=== PATIENT | female | born 1940 | race Caucasian/White ===

== ENCOUNTER 2016-03-02 12:31 | Emergency (ER) | payer MEDICARE, MEDICAID ==
[~2016-03-02] VITALS: Ht 170.2 cm; Wt 121.1 kg
[~2016-03-02 12:31] MED LIST: ACET500T33 PO; ALBU2.5V5 NEB; ASPI-482 PO; ASPI325T11 PO; ATEN50TA PO; AZIT1PAC PO; CETI10TA22 PO; CHOL500015 PO; CRESTOR40 MG PO; DILT240C2 PO; ESCI10TA10 PO; FLUT12AE IH; FLUT9.9S NS; FURO-69 PO; GLIM2TAB PO; GLIM4TAB PO; HYDR-2762 PO; LEVO150T PO; LEVO150T5 PO; LEVO500T38 PO; LOSA100T6 PO; METO5TAB4 PO; OMEG1CAP2 PO; OXYB5TAB33 PO; OXYC-244 PO; POTA20TA12 PO; PRED-220 PO; PRED50TA PO; SODI30SP NS; TIOT4MIS3 IH; WARF1TAB PO
[2016-03-02] MEDS ORDERED: IPRATRPIUM/ALBUTEROL 0.5/2.5MG 3 ML NEBU. NEB ONE (14:00)
[2016-03-02] MEDS ORDERED: ALBUTEROL SULFATE 2.5 MG/3 ML NEBU. NEB ONE (14:00)
[2016-03-02] MEDS ORDERED: PREDNISONE 20 MG TABLET PO ONE (14:00)
--- NOTE | 2016-03-02 14:27 | RAD ---
Exam: AP portable chest. History: Dyspnea and shortness of breath. Comparison: 12/16/2015. Findings: Cardiac silhouette appears mildly enlarged, similar to previous study. Lungs are without infiltrate. No pneumothorax or pleural effusion is appreciated. Median sternotomy wires are present. Aortic atherosclerosis is noted. Impression: 1. No acute cardiopulmonary process.
[2016-03-02 14:38] VITALS: BP 122/61
[2016-03-02] MEDS ORDERED: LEVO500T38 PO (14:53)
[2016-03-02] MEDS ORDERED: PRED20TA PO (14:53)
--- NOTE | 2016-03-02 15:55 | ED.ADGEN ---
Past Medical History Past Medical History: COPD Past Surgical History: Gastric Bypass Alcohol Use: None Drug Use: None Adult General Chief Complaint Chief Complaint: COUGH HPI HPI Patient is a 75 year old female with a history of COPD presents emergency department complaining of worsening cough for the last 5 days. Patient states she may have had a low-grade fever. Using some antibiotics that she had leftover previously. She is unsure last time that she had steroids. Review of Systems Review of Systems Constitutional: Denies fever or chills. [] Eyes: Denies change in visual acuity. [] HENT: Denies nasal congestion or sore throat. [] Respiratory: Denies cough or shortness of breath. [] Cardiovascular: Denies chest pain or edema. [] GI: Denies abdominal pain, nausea, vomiting, bloody stools or diarrhea. [] : Denies dysuria. [] Musculoskeletal: Denies back pain or joint pain. [] Integument: Denies rash. [] Neurologic: Denies headache, focal weakness or sensory changes. [] Endocrine: Denies polyuria or polydipsia. [] Lymphatic: Denies swollen glands. [] Psychiatric: Denies depression or anxiety. [] Current Medications Current Medications Current Medications Medications (Trade) Dose Ordered Sig/Dean Start Time Stop Time Status Last Admin Dose Admin Albuterol Sulfate (Ventolin Neb Soln) 2.5 mg 1X ONCE 03/02/16 14:00 03/02/16 14:01 DC 03/02/16 14:07 2.5 MG Albuterol/ Ipratropium (Duoneb) 3 ml 1X ONCE 03/02/16 14:00 03/02/16 14:01 DC 03/02/16 14:06 3 ML Prednisone (Prednisone) 60 mg 1X ONCE 03/02/16 14:00 03/02/16 14:01 DC 03/02/16 14:06 60 MG Allergies Allergies Allergies Coded Allergies Type Severity Reaction Last Updated Verified SEAN Inhibitors Allergy Intermediate 12/24/15 Yes Iodinated Contrast Media - Oral and Allergy Intermediate 12/24/15 Yes Penicillins Allergy Intermediate 12/24/15 Yes sulfamethoxazole Allergy Intermediate 12/24/15 Yes trimethoprim Allergy Intermediate 12/24/15 Yes Physical Exam Physical Exam Constitutional: Well developed, well nourished, no acute distress, non-toxic appearance. [] HENT: Normocephalic, atraumatic, bilateral external ears normal, oropharynx moist, no oral exudates, nose normal. [] Eyes: PERRLA, EOMI, conjunctiva normal, no discharge. [] Neck: Normal range of motion, no tenderness, supple, no stridor. [] Cardiovascular:Heart rate regular rhythm, no murmur [] Lungs & Thorax: Bilateral breath sounds diminished with wheezes in all orozco [ ] Abdomen: Bowel sounds normal, soft, no tenderness, no masses, no pulsatile masses. [] Skin: Warm, dry, no erythema, no rash. [] Back: No tenderness, no CVA tenderness. [] Extremities: No tenderness, no cyanosis, no clubbing, ROM intact, no edema. [] Neurologic: Alert and oriented X 3, normal motor function, normal sensory function, no focal deficits noted. [] Psychologic: Affect normal, judgement normal, mood normal. [] Current Patient Data Vital Signs Vital Signs Date Time Temp Pulse Resp B/P Pulse Ox O2 Delivery O2 Flow Rate FiO2 03/02/16 14:38 82 18 122/61 95 Room Air 03/02/16 14:13 2.0 03/02/16 13:44 99.3 99.3 EKG EKG [] Radiology/Procedures Radiology/Procedures Exam: AP portable chest. History: Dyspnea and shortness of breath. Comparison: 12/16/2015. Findings: Cardiac silhouette appears mildly enlarged, similar to previous study. Lungs are without infiltrate. No pneumothorax or pleural effusion is appreciated. Median sternotomy wires are present. Aortic atherosclerosis is noted. Impression: 1. No acute cardiopulmonary process. DICTATED and SIGNED BY: JUAN LAO MD DATE: 03/02/16 9556 CC: YULIANA DODSON MD; MAICOL SOMMERS MD ~[] Course & Med Decision Making Course & Med Decision Making Pertinent Labs and Imaging studies reviewed. (See chart for details) Patient x-rays reassuring. She received a dose of steroids and breathing treatment return emergency department. She reports that she is feeling significantly better when I try to go home. I did write her prescription for Levaquin and prednisone. She will follow-up with her physician within the next 1 week and return to emergency department sooner she develops any new or worsening symptoms. COPD exacerbation [] Dragon Disclaimer Dragon Disclaimer This electronic medical record was generated, in whole or in part, using a voice recognition dictation system. YULIANA DODSON MD Mar 02, 2016 15:54
== END 2016-03-02 15:22 | disposition home or self-care (01) ==
LOC: ER 12:31
DX: J44.1 Chronic obstructive pulmonary disease with (acute) exacerbation (principal); Z88.0 Allergy status to penicillin; Z88.2 Allergy status to sulfonamides; Z91.041 Radiographic dye allergy status; Z88.1 Allergy status to other antibiotic agents; Z88.8 Allergy status to other drugs, medicaments and biological substances
CPT/HCPCS: 71010; 94640; 99284; J7512; J7620

== ENCOUNTER → 2016-05-19 | Outpatient (CLI) | payer MEDICARE, MEDICAID ==
[~2016-05-19] MED LIST changes: +PRED20TA PO
--- NOTE | 2016-05-19 17:54 | CARD ---
APPROVED REPORT EXAM: Two-dimensional and M-mode echocardiogram with Doppler and color Doppler. Other Information Quality : AverageHR: 81bpm Rhythm : Atrial Fibrillation INDICATION Aortic Valve Disease Congestive Heart Failure 2D DIMENSIONS RVDd3.5 (2.9-3.5cm)Left Atrium(2D)4.5 (1.6-4.0cm) IVSd1.0 (0.7-1.1cm)Aortic Root(2D)2.8 (2.0-3.7cm) LVDd5.8 (3.9-5.9cm)LVOT Diameter2.0 (1.8-2.4cm) PWd1.0 (0.7-1.1cm)LVDs4.0 (2.5-4.0cm) FS (%) 30.0 %SV93.2 ml LVEF(%)56.0 (>50%) Aortic Valve AoV Peak Musa.262.8cm/sAoV VTI59.3cm AO Peak GR.27.6mmHgLVOT Peak Musa.111.1cm/s LVOT VTI 24.61cmAO Mean GR.17mmHg DAYANNA (VMAX)1.73pk1XFR (VTI)1.31cm2 Pulmonary Valve PV Peak Pvlrpsyt075.8cm/sPV Peak Grad.5mmHg RVOT VTI18.3cm Tricuspid Valve TR P. Vnskehbt448es/sRAP [id number] TR Peak Gr.95idJrTJGR23nmOj LEFT VENTRICLE The left ventricle is normal size. There is normal left ventricular wall thickness. Left ventricle sy stolic function is normal. The Ejection Fraction is 56%. There is normal LV segmental wall motion. Un able to assess due to abnormal heart rhythm. There is no ventricular septal defect visualized. RIGHT VENTRICLE The right ventricle is normal size. There is normal right ventricular wall thickness. The right ventr icular systolic function is normal. ATRIA The left atrium is mildly dilated. The right atrium is mildly dilated. The interatrial septum is inta ct with no evidence for an atrial septal defect or patent foramen ovale as noted on 2-D or Doppler im aging. AORTIC VALVE The aortic valve is calcified and displays decreased opening. Doppler and Color Flow revealed no sign ificant aortic regurgitation. Calculated aortic valve area is 1.3 cm2 with maximum pressure gradient of 28 mmHg and mean pressure gradient of 18 mmHg. Doppler and color-flow analysis revealed mild aorti c stenosis. MITRAL VALVE The mitral valve is calcified but opens well. Mitral annular calcification on the posterior leaflet i s mild. There is no evidence of mitral valve prolapse. There is no mitral valve stenosis. Doppler and Color Flow revealed trace mitral regurgitation. TRICUSPID VALVE The tricuspid valve is normal in structure. Doppler and Color Flow revealed mild tricuspid regurgitat ion. There is moderate pulmonary hypertension. The PA pressure was estimated at 48 mmHg. PULMONIC VALVE The pulmonary valve is normal in structure. Doppler and Color Flow revealed mild pulmonic valvular re gurgitation. There is no pulmonic valvular stenosis. GREAT VESSELS The aortic root is normal in size. The ascending aorta is normal in size. The IVC is normal in size a nd collapses >50% with inspiration. PERICARDIAL EFFUSION There is no pleural effusion. There is no evidence of significant pericardial effusion. Critical Notification Critical Value: No <Conclusion> Left ventricle systolic function is normal. The Ejection Fraction is 56%. The left atrium is mildly dilated. The right atrium is mildly dilated. Calculated aortic valve area is 1.3 cm2 with maximum pressure gradient of 28 mmHg and mean pressure g radient of 18 mmHg. Doppler and color-flow analysis revealed mild aortic stenosis. The aortic valve is calcified and displays decreased opening. Doppler and Color Flow revealed no significant aortic regurgitation. Doppler and Color Flow revealed trace mitral regurgitation. The mitral valve is calcified but opens well. Mitral annular calcification on the posterior leaflet is mild. Doppler and Color Flow revealed mild tricuspid regurgitation. There is moderate pulmonary hypertension. The PA pressure was estimated at 48 mmHg. Doppler and Color Flow revealed mild pulmonic valvular regurgitation. There is no evidence of significant pericardial effusion.
== END | disposition home or self-care (01) ==
LOC: ECHO 09:36
PROVIDERS: ATTEND Internal Medicine Cardiovascular Disease
DX: I50.32 Chronic diastolic (congestive) heart failure (principal); I35.0 Nonrheumatic aortic (valve) stenosis; I07.1 Rheumatic tricuspid insufficiency; I27.2 Other secondary pulmonary hypertension; I37.1 Nonrheumatic pulmonary valve insufficiency
CPT/HCPCS: 93306

== ENCOUNTER → 2016-05-22 | Day surgery (SDC) | payer MEDICARE, MEDICAID ==
[~2016-05-22] MED LIST changes: +FENTANYL PF 100 MCG/2 ML VIAL. IV PRN; +HYDROMORPHONE 2 MG/ML VIAL. IV PRN; +IV RINGERS,LACTATED 1000ML 1,000 ML IV SCH; +LIDOCAINE 1% 1 ML SYRINGE. ID PRN; +LIDOCAINE 2% PF Vial for OR 5 ML VIAL. ONE; +MORPHINE SULFATE 2 MG/ML DISP.SYRIN. IV PRN; +PROCHLORPERAZINE 10 MG/2 ML VIAL. IV PRN; +PROPOFOL 20 ML IV ONE
[2016-05-22 09:45] VITALS: BP 117/60
== END | disposition home or self-care (01) ==
LOC: ENDOS 07:32
PROVIDERS: ATTEND Internal Medicine Gastroenterology
DX: K22.2 Esophageal obstruction (principal); K29.50 Unspecified chronic gastritis without bleeding; I11.0 Hypertensive heart disease with heart failure; I50.40 Unspecified combined systolic (congestive) and diastolic (congestive) heart failure; E78.00 Pure hypercholesterolemia, unspecified; I48.91 Unspecified atrial fibrillation; J44.9 Chronic obstructive pulmonary disease, unspecified; E66.9 Obesity, unspecified; E11.9 Type 2 diabetes mellitus without complications; E03.9 Hypothyroidism, unspecified; F41.9 Anxiety disorder, unspecified; F32.9 Major depressive disorder, single episode, unspecified; M19.90 Unspecified osteoarthritis, unspecified site; Z90.710 Acquired absence of both cervix and uterus; Z90.49 Acquired absence of other specified parts of digestive tract
CPT/HCPCS: 43235; 43450; J2704

== ENCOUNTER 2016-10-07 08:15 | Emergency (ER) | payer MEDICARE, OTHER ==
[~2016-10-07 08:15] MED LIST changes: -CHOL500015 PO; +CHOL500045 PO; -ESCI10TA10 PO; -FENTANYL PF 100 MCG/2 ML VIAL. IV PRN; -HYDROMORPHONE 2 MG/ML VIAL. IV PRN; -IV RINGERS,LACTATED 1000ML 1,000 ML IV SCH; -LEVO500T38 PO; +LEVO500T59 PO; +LEXAPRO10 MG PO; -LIDOCAINE 1% 1 ML SYRINGE. ID PRN; -LIDOCAINE 2% PF Vial for OR 5 ML VIAL. ONE; -MORPHINE SULFATE 2 MG/ML DISP.SYRIN. IV PRN; -OXYC-244 PO; +OXYC-327 PO; -PROCHLORPERAZINE 10 MG/2 ML VIAL. IV PRN; -PROPOFOL 20 ML IV ONE; -WARF1TAB PO; +WARF1TAB74 PO
--- NOTE | 2016-10-07 08:40 | PHYS DOC ---
Past Medical History Past Medical History: COPD, Diabetes-Type II, High Cholesterol Past Surgical History: Coronary Bypass Surgery, Gastric Bypass Alcohol Use: None Drug Use: None Adult General Chief Complaint Chief Complaint: MECHANICAL FALL HPI HPI Patient is a 76 year old female with history of COPD, diabetes type 2, bypass, who presents with head contusion, right shoulder pain, right bazan pain, right elbow pain, and left hip pain after falling. Patient states she tripped and fell into a laundry basket. Patient denies any loss of consciousness. Denies any neck pain. She states she is currently being treated with antibiotics for an upper respiratory infection. PCP Dr. Ramos Review of Systems Review of Systems Constitutional: Denies fever or chills [] Eyes: Denies change in visual acuity, redness, or eye pain [] HENT: Denies nasal congestion or sore throat [] Respiratory: Denies cough or shortness of breath [] Cardiovascular: No additional information not addressed in HPI [] GI: Denies abdominal pain, nausea, vomiting, bloody stools or diarrhea [] : Denies dysuria or hematuria [] Musculoskeletal: Right shoulder pain, right abzan pain, left hip pain Integument: Denies rash or skin lesions [] Neurologic: Head contusion Endocrine: Denies polyuria or polydipsia [] Current Medications Current Medications Current Medications Medications (Trade) Dose Ordered Sig/Dean Start Time Stop Time Status Last Admin Dose Admin Acetaminophen/ Hydrocodone Bitart (Lortab 5/325) 1 tab 1X ONCE 10/07/16 08:45 10/07/16 08:46 DC 10/07/16 08:41 1 TAB Diphtheria/ Tetanus/Acell Pertussis (Boostrix) 0.5 ml ONCE ONCE 10/07/16 08:45 10/07/16 08:46 DC 10/07/16 08:43 0.5 ML Allergies Allergies Allergies Coded Allergies Type Severity Reaction Last Updated Verified SEAN Inhibitors Allergy Intermediate 05/22/16 Yes Iodinated Contrast- Oral and IV Dye Allergy Intermediate 05/22/16 Yes Penicillins Allergy Intermediate 05/22/16 Yes sulfamethoxazole Allergy Intermediate 05/22/16 Yes trimethoprim Allergy Intermediate 05/22/16 Yes Physical Exam Physical Exam Constitutional: Well developed, well nourished, no acute distress, non-toxic appearance. [] HENT: Normocephalic, atraumatic, bilateral external ears normal, oropharynx moist, no oral exudates, nose normal. [] Eyes: PERRLA, EOMI, conjunctiva normal, no discharge. [] Neck: Normal range of motion, no tenderness, supple, no stridor. [] Cardiovascular:Heart rate regular rhythm, no murmur [] Lungs & Thorax: Bilateral breath sounds clear to auscultation [] Abdomen: Bowel sounds normal, soft, no tenderness, no masses, no pulsatile masses. [] Skin: Warm, dry, no erythema, no rash. [] Back: No tenderness, no CVA tenderness. [] Extremities: Right shoulder with no deformity. Tenderness on palpation of the right lateral shoulder. Limited range of motion to the right shoulder due to pain. Right elbow with bruising. Limited range of motion to the right elbow due to pain. Adequate plantar flexion and dorsiflexion of the right forearm. +2 right radial pulse. Adequate radial medial and ulnar sensation to the right upper extremity. Cap refill less than 2 seconds the right fingers. Left hip with no obvious deformity. Limited range of motion to the left hip due to pain. Tenderness on palpation of the left lateral hip. +2 left radial pulse. Cap refill less than 2 seconds. Right bazan with bruising on the distal end. Full range of motion to the right lower extremity. +2 right radial pulse. Cap refill less than 2 seconds the right lower extremity. Neurologic: Alert and oriented X 3, normal motor function, normal sensory function, no focal deficits noted. Cranial nerves II through XII intact. Mild sized contusion noted on the right parietal lobe and left forehead. Psychologic: Affect normal, judgement normal, mood normal. [] Current Patient Data Vital Signs Vital Signs Date Time Temp Pulse Resp B/P (MAP) Pulse Ox O2 Delivery O2 Flow Rate FiO2 10/07/16 08:41 18 10/07/16 08:26 98.6 106 155/81 (105) 88 Room Air 98.6 EKG EKG [] Radiology/Procedures Radiology/Procedures []PROCEDURE: ELBOW RIGHT 3V; SHOULDER 2+V RIGHT Right shoulder and elbow radiograph 10/07/2016 at 0928 hours Indication: Fall, pain Comparison: None available Technique: 3 views of the right elbow and 3 views of right shoulder are provided. Findings: Right shoulder: There is mild osteoarthrosis of the acromioclavicular joint. Mild osteoarthrosis of the glenohumeral joint. No acute fracture or dislocation. Irregularity along the superolateral aspect of the right humeral head may represent rotator cuff arthropathy. No soft tissue abnormality is identified. Visualized portions of the right lung are clear. Right elbow: There is no acute fracture or dislocation. Radial capitellar articulation is within normal limits. There is no significant elbow joint effusion. Impression: 1. No acute fracture or dislocation involving the acromioclavicular and glenohumeral joints. Mild osteoarthrosis of the acromioclavicular and glenohumeral joints are noted. 2. No acute fracture or dislocation involving the right elbow. DICTATED and SIGNED BY: JOSE GRANADOS MD DATE: 10/07/16940 CC: MAICOL RAMOS MD; JOSE CARRIZALES APRN ~ PROCEDURE: CT HEAD WO CONTRAST CT of the head without contrast, 10/07/2016: History: Fall, pain There is a moderate-sized scalp hematoma centered within the right parietal region. No underlying fracture is identified. The ventricles are within normal limits in size. There is no shift of the midline structures. There is no evidence of acute intracranial hemorrhage or mass effect. A small deep white matter lucency in the centrum semiovale on the right is compatible with an old infarct. There is mild cerebral atrophy. There is calcific plaquing of the distal internal carotid and vertebral arteries. IMPRESSION: 1. 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 2. No acute intracranial abnormality. PQRS Compliance Statement: One or more of the following individualized dose reduction techniques were utilized for this examination: 1. Automated exposure control 2. Adjustment of the mA and/or kV according to patient size 3. Use of iterative reconstruction technique DICTATED and SIGNED BY: LEXY MARK MD DATE: 10/07/16 0913 CC: MAICOL RAMOS MD; JOSE CARRIZALES APRN ~ PROCEDURE: HIP LEFT 2V WITH PELVIS; TIBIA FIBULA RIGHT Left hip radiograph with single view pelvis 10/07/2016 at 0919 hours Right tibia and fibula radiograph Indication: Fall, pain Comparison: Pelvis radiograph 06/03/2005 Technique: AP pelvis and 2 dedicated views of the left hip are provided. 2 views of the right tibia and fibula are provided. Findings: Left hip: There is no acute fracture or dislocation. Joint spaces are maintained. Pelvic ring is intact. Findings are not significantly changed since 06/03/2005. There is mild degenerative changes of the sacroiliac joints and lower lumbar spine. Phleboliths are identified in the pelvis. Right tibia and fibula: A right total knee arthroplasty is partially profiled. There is no periprosthetic fracture involving the tibial stem. No acute fracture or dislocation is identified. Vascular calcification is present. No significant soft tissue abnormality. Impression: 1. No acute fracture or dislocation involving the left hip. 2. No acute fracture or dislocation involving the right tibia and fibula. DICTATED and SIGNED BY: JOSE GRANADOS MD DATE: 10/07/16 0945 CC: MIACOL RAMOS MD; JOSE CARRIZALES APRN ~ PROCEDURE: HIP LEFT 2V WITH PELVIS; TIBIA FIBULA RIGHT Left hip radiograph with single view pelvis 10/07/2016 at 0919 hours Right tibia and fibula radiograph Indication: Fall, pain Comparison: Pelvis radiograph 06/03/2005 Technique: AP pelvis and 2 dedicated views of the left hip are provided. 2 views of the right tibia and fibula are provided. Findings: Left hip: There is no acute fracture or dislocation. Joint spaces are maintained. Pelvic ring is intact. Findings are not significantly changed since 06/03/2005. There is mild degenerative changes of the sacroiliac joints and lower lumbar spine. Phleboliths are identified in the pelvis. Right tibia and fibula: A right total knee arthroplasty is partially profiled. There is no periprosthetic fracture involving the tibial stem. No acute fracture or dislocation is identified. Vascular calcification is present. No significant soft tissue abnormality. Impression: 1. No acute fracture or dislocation involving the left hip. 2. No acute fracture or dislocation involving the right tibia and fibula. DICTATED and SIGNED BY: JOSE GRANADOS MD DATE: 10/07/16 0945 CC: MAICOL RAMOS MD; JOSE CARRIZALES APRN ~ Course & Med Decision Making Course & Med Decision Making Pertinent Labs and Imaging studies reviewed. (See chart for details) Patient is in the ED with head contusion, right shoulder pain, right elbow pain , right bazan pain, and left hip pain status post falling. There was no loss of consciousness. Patient was given tetanus in the ED. CT of the head was negative for any acute findings. Right shoulder right elbow x-rays were negative for any acute findings as interpreted by radiologist. Left hip with pelvic x-rays were negative for any acute findings. Right tib-fib x-rays interpreted by radiologist are negative for any acute findings. Patient got out of bed with the help of a walker. She was able to ambulate. We discharged her with cyclobenzaprine and hydrocodone. She does take hydrocodone at home occasionally for chronic pain. She has a PCP. She stated she'll follow-up in the next 1-7 days. Dragon Disclaimer Dragon Disclaimer This electronic medical record was generated, in whole or in part, using a voice recognition dictation system. Departure Departure Impression: Primary Impression: Fall from standing Additional Impressions: Contusion of left hip Contusion of right shoulder Contusion of right elbow Superficial bruising of lower leg Disposition: 01 HOME, SELF-CARE Condition: STABLE Referrals: MAICOL RAMOS MD (PCP) follow up in one week Patient Instructions: Contusion, [id number], Fall Prevention and Home Safety Additional Instructions: You were seen for head contusion, right shoulder contusion, right elbow contusion, and left hip contusion after falling. Ice and elevate the affected areas. Apply Neosporin to the bruised areas. Take the prescribed medicines as needed for pain. Follow-up with your doctor in the next 1-7 days. Come back to the ED if symptoms worsen. Scripts Cyclobenzaprine Hcl (CYCLOBENZAPRINE HCL) 10 Mg Tablet 1 TAB PO TID, #30 TAB Prov: JOSE CARRIZALES CHILD CARE COUNSELOR 10/07/16 Hydrocodone/Apap 5-325 (NORCO 5-325 TABLET) 1 Each Tablet 1 TAB PO PRN Q6HRS Y for PAIN, #10 TAB 0 Refills Prov: JOSE CARRIZALES CHILD CARE COUNSELOR 10/07/16 Problem Qualifiers Primary Impression: Fall from standing Encounter type: initial encounter Qualified Codes: W19.XXXA - Unspecified fall, initial encounter Additional Impressions: Contusion of left hip Encounter type: initial encounter Qualified Codes: S70.02XA - Contusion of left hip, initial encounter Contusion of right shoulder Encounter type: initial encounter Qualified Codes: S40.011A - Contusion of right shoulder, initial encounter Contusion of right elbow Encounter type: initial encounter Qualified Codes: S50.01XA - Contusion of right elbow, initial encounter Superficial bruising of lower leg Encounter type: initial encounter Laterality: right Qualified Codes: S80.11XA - Contusion of right lower leg, initial encounter JOSE CARRIZALES APRN Oct 07, 2016 08:40
[2016-10-07] MEDS ORDERED: DIPHTH,PERTUSS(ACELL),TET TOX 0.5 ML DISP.SYRIN. VAX IM ONE (08:45)
[2016-10-07] MEDS ORDERED: HYDROcodone/APAP 5/325MG 1 TAB TABLET PO ONE (08:45)
--- NOTE | 2016-10-07 09:19 | RAD ---
CT of the head without contrast, 10/07/2016: History: Fall, pain There is a moderate-sized scalp hematoma centered within the right parietal region. No underlying fracture is identified. The ventricles are within normal limits in size. There is no shift of the midline structures. There is no evidence of acute intracranial hemorrhage or mass effect. A small deep white matter lucency in the centrum semiovale on the right is compatible with an old infarct. There is mild cerebral atrophy. There is calcific plaquing of the distal internal carotid and vertebral arteries. IMPRESSION: 1. 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 2. No acute intracranial abnormality. PQRS Compliance Statement: One or more of the following individualized dose reduction techniques were utilized for this examination: 1. Automated exposure control 2. Adjustment of the mA and/or kV according to patient size 3. Use of iterative reconstruction technique
--- NOTE | 2016-10-07 09:47 | RAD ---
Right shoulder and elbow radiograph 10/07/2016 at 0928 hours Indication: Fall, pain Comparison: None available Technique: 3 views of the right elbow and 3 views of right shoulder are provided. Findings: Right shoulder: There is mild osteoarthrosis of the acromioclavicular joint. Mild osteoarthrosis of the glenohumeral joint. No acute fracture or dislocation. Irregularity along the superolateral aspect of the right humeral head may represent rotator cuff arthropathy. No soft tissue abnormality is identified. Visualized portions of the right lung are clear. Right elbow: There is no acute fracture or dislocation. Radial capitellar articulation is within normal limits. There is no significant elbow joint effusion. Impression: 1. No acute fracture or dislocation involving the acromioclavicular and glenohumeral joints. Mild osteoarthrosis of the acromioclavicular and glenohumeral joints are noted. 2. No acute fracture or dislocation involving the right elbow.
--- NOTE | 2016-10-07 09:52 | RAD ---
Left hip radiograph with single view pelvis 10/07/2016 at 0919 hours Right tibia and fibula radiograph Indication: Fall, pain Comparison: Pelvis radiograph 06/03/2005 Technique: AP pelvis and 2 dedicated views of the left hip are provided. 2 views of the right tibia and fibula are provided. Findings: Left hip: There is no acute fracture or dislocation. Joint spaces are maintained. Pelvic ring is intact. Findings are not significantly changed since 06/03/2005. There is mild degenerative changes of the sacroiliac joints and lower lumbar spine. Phleboliths are identified in the pelvis. Right tibia and fibula: A right total knee arthroplasty is partially profiled. There is no periprosthetic fracture involving the tibial stem. No acute fracture or dislocation is identified. Vascular calcification is present. No significant soft tissue abnormality. Impression: 1. No acute fracture or dislocation involving the left hip. 2. No acute fracture or dislocation involving the right tibia and fibula.
[2016-10-07] MEDS ORDERED: HYDR-971 PO (11:05)
[2016-10-07] MEDS ORDERED: CYCL10TA2 PO (11:05)
[2016-10-07 11:14] VITALS: BP 135/65
== END 2016-10-07 11:41 | disposition home or self-care (01) ==
LOC: ER 08:15
DX: S40.011A Contusion of right shoulder, initial encounter (principal); S50.01XA Contusion of right elbow, initial encounter; S70.02XA Contusion of left hip, initial encounter; S00.03XA Contusion of scalp, initial encounter; S80.11XA Contusion of right lower leg, initial encounter; J44.9 Chronic obstructive pulmonary disease, unspecified; E11.9 Type 2 diabetes mellitus without complications; E78.00 Pure hypercholesterolemia, unspecified; Z95.1 Presence of aortocoronary bypass graft; Z91.041 Radiographic dye allergy status; Z88.1 Allergy status to other antibiotic agents; Z88.8 Allergy status to other drugs, medicaments and biological substances; Z88.2 Allergy status to sulfonamides; Z88.0 Allergy status to penicillin; W01.0XXA Fall on same level from slipping, tripping and stumbling without subsequent striking against object, initial encounter; Y92.89 Other specified places as the place of occurrence of the external cause; Y93.89 Activity, other specified; Y99.8 Other external cause status; Z96.651 Presence of right artificial knee joint
CPT/HCPCS: 70450; 73030; 73080; 73502; 73590; 90471; 90715; 99284-25

== ENCOUNTER 2016-11-16 10:08 | Inpatient (IN) | payer MEDICARE, OTHER ==
[~2016-11-16] VITALS: Ht 175.3 cm; Wt 119.1 kg
[~2016-11-16 10:08] MED LIST changes: +CYCL10TA2 PO; +HYDR-971 PO
[2016-11-16 11:04] LABS: BASO # 0.1 x10^3/uL (0.0-0.2); BASO % 0 % (0-3); EOS % 0 % (0-3); HEMATOCRIT 29.2 % (36.0-47.0); HEMOGLOBIN 9.7 g/dL (12.0-15.5); LYMPH # 0.6 x10^3/uL (1.0-4.8); LYMPH % 5 % (24-48); MEAN CORPUSCULAR HEMOGLOBIN 33 pg (25-35); MEAN CORPUSCULAR HGB CONC 33 g/dL (31-37); MEAN CORPUSCULAR VOLUME 100 fL (79-100); MONO % 9 % (0-9); NEUT % 86 % (31-73); PLATELET COUNT 240 x10^3/uL (140-400); RED BLOOD COUNT 2.93 x10^6/uL (3.50-5.40); RED CELL DISTRIBUTION WIDTH 14.2 % (11.5-14.5); WHITE BLOOD COUNT 12.4 x10^3/uL (4.0-11.0)
--- NOTE | 2016-11-16 11:13 | RAD ---
Examination: Single frontal view chest History: History of shortness of breath Comparison: 03/02/2016 Findings: Low lung volumes and technique accentuates heart size and pulmonary vascularity. Median sternotomy wires are identified. Mild prominent appearing bilateral interstitial lung markings grossly similar to prior exam could be chronic interstitial changes. Impression: Mild prominent interstitial lung markings likely chronic interstitial changes similar to prior exam.
--- NOTE | 2016-11-16 11:22 | PHYS DOC ---
Past Medical History Past Medical History: A-Fib, CHF, COPD, Diabetes-Type II, High Cholesterol, Hypertension Past Surgical History: Cholecystectomy, Coronary Bypass Surgery, Gastric Bypass , Hysterectomy, Knee Replacement, Other Additional Past Surgical Histo: cervical laminectomy, bilat knee replacement Alcohol Use: None Drug Use: None Adult General Chief Complaint Chief Complaint: SHORTNESS OF BREATH [facility] HPI Patient is a 76 year old female who presents with complaint shortness breath for the past 2-3 days. Patient states that she has history of congestive heart failure and COPD. Patient states that she was recently taken off of her water pills 2 weeks ago by her primary physician, Dr. Ramos. The patient states that over the past 2 weeks she has noticed increasing swelling in her lower extremities area the patient states that she is normally on 2 L of oxygen but has been very short of breath despite being on her oxygen. Patient was found to have Review of Systems Review of Systems Constitutional: Denies fever or chills [] Eyes: Denies change in visual acuity, redness, or eye pain [] HENT: Denies nasal congestion or sore throat [] Respiratory: Denies cough or shortness of breath [] Cardiovascular: No additional information not addressed in HPI [] GI: Denies abdominal pain, nausea, vomiting, bloody stools or diarrhea [] : Denies dysuria or hematuria [] Musculoskeletal: Denies back pain or joint pain [] Integument: Denies rash or skin lesions [] Neurologic: Denies headache, focal weakness or sensory changes [] Endocrine: Denies polyuria or polydipsia [] Allergies Allergies Allergies Coded Allergies Type Severity Reaction Last Updated Verified SEAN Inhibitors Allergy Intermediate 11/16/16 Yes Iodinated Contrast- Oral and IV Dye Allergy Intermediate 11/16/16 Yes Penicillins Allergy Intermediate 11/16/16 Yes sulfamethoxazole Allergy Intermediate 11/16/16 Yes trimethoprim Allergy Intermediate 11/16/16 Yes Physical Exam Physical Exam Constitutional: Well developed, well nourished, no acute distress, non-toxic appearance. [] HENT: Normocephalic, atraumatic, bilateral external ears normal, oropharynx moist, no oral exudates, nose normal. [] Eyes: PERRLA, EOMI, conjunctiva normal, no discharge. [] Neck: Normal range of motion, no tenderness, supple, no stridor. [] Cardiovascular:Heart rate regular rhythm, no murmur [] Lungs & Thorax: Bilateral breath sounds clear to auscultation [] Abdomen: Bowel sounds normal, soft, no tenderness, no masses, no pulsatile masses. [] Skin: Warm, dry, no erythema, no rash. [] Back: No tenderness, no CVA tenderness. [] Extremities: No tenderness, no cyanosis, no clubbing, ROM intact, no edema. [] Neurologic: Alert and oriented X 3, normal motor function, normal sensory function, no focal deficits noted. [] Psychologic: Affect normal, judgement normal, mood normal. [] Current Patient Data Vital Signs Vital Signs Date Time Temp Pulse Resp B/P (MAP) Pulse Ox O2 Delivery O2 Flow Rate FiO2 11/16/16 11:02 90 27 118/56 (76) 94 Nasal Cannula 3.0 11/16/16 10:23 100.3 100.3 Lab Values Laboratory Tests Test 11/16/16 10:25 White Blood Count 12.4 x10^3/uL (4.0-11.0) H Red Blood Count 2.93 x10^6/uL (3.50-5.40) L Hemoglobin 9.7 g/dL (12.0-15.5) L Hematocrit 29.2 % (36.0-47.0) L Mean Corpuscular Volume 100 fL (79-100) Mean Corpuscular Hemoglobin 33 pg (25-35) Mean Corpuscular Hemoglobin Concent 33 g/dL (31-37) Red Cell Distribution Width 14.2 % (11.5-14.5) Platelet Count 240 x10^3/uL (140-400) Neutrophils (%) (Auto) 86 % (31-73) H Lymphocytes (%) (Auto) 5 % (24-48) L Monocytes (%) (Auto) 9 % (0-9) Eosinophils (%) (Auto) 0 % (0-3) Basophils (%) (Auto) 0 % (0-3) Neutrophils # (Auto) 10.6 x10^3uL (1.8-7.7) H Lymphocytes # (Auto) 0.6 x10^3/uL (1.0-4.8) L Monocytes # (Auto) 1.1 x10^3/uL (0.0-1.1) Eosinophils # (Auto) 0.0 x10^3/uL (0.0-0.7) Basophils # (Auto) 0.1 x10^3/uL (0.0-0.2) Segmented Neutrophils % 87 % (35-66) H Band Neutrophils % 2 % (0-9) Lymphocytes % 4 % (24-48) L Monocytes % 6 % (0-10) Basophils % 1 % (0-3) Platelet Estimate Adequate (ADEQUATE) Polychromasia Slight Laboratory Tests 11/16/16 10:25 EKG EKG Interpreted by me: Heart rate 98, atrial fibrillation, leftward axis, no acute ST/T-wave abnormalities present[] Radiology/Procedures Radiology/Procedures [facility] [address] [place] [address] IMAGING REPORT Signed PATIENT: JOSE VALENTINE ACCOUNT: [id number] : 1940 LOCATION: ER AGE: 76 SEX: F EXAM STATUS: REG ER ORD. PHYSICIAN: NASIR SHIN MD REASON: shortness of breath PROCEDURE: PORTABLE CHEST 1V Examination: Single frontal view chest History: History of shortness of breath Comparison: 03/02/2016 Findings: Low lung volumes and technique accentuates heart size and pulmonary vascularity. Median sternotomy wires are identified. Mild prominent appearing bilateral interstitial lung markings grossly similar to prior exam could be chronic interstitial changes. Impression: Mild prominent interstitial lung markings likely chronic interstitial changes similar to prior exam. DICTATED and SIGNED BY: SCAR ROONEY MD DATE: 11/16/16 1109 CC: NASIR SHIN MD; JUAN COOK MD ~ [] Course & Med Decision Making Course & Med Decision Making Pertinent Labs and Imaging studies reviewed. (See chart for details) The patient was started on the patient's oxygen levels were titrated to keep O2 sats above 91%. The patient appears to have evidence of acute on chronic congestive heart failure. I spoke with patient's mail processor, Dr. Taveras, who agreed with initiation of Lasix therapy and admission to the hospital. The patient was also found to have a urinary tract infection which is the likely source of the patient's fevers. Patient started on IV Levaquin for treatment. The patient will be admitted for further treatment. I spoke with Dr. Cuello who accepted care patient in hospital. Dragon Disclaimer Dragon Disclaimer This electronic medical record was generated, in whole or in part, using a voice recognition dictation system. Departure Departure Impression: Primary Impression: Acute on chronic respiratory failure Additional Impressions: Congestive heart failure (CHF) COPD (chronic obstructive pulmonary disease) Urinary tract infection Moderate protein malnutrition Disposition: ADMITTED INPATIENT Admitting Physician: Almaz Cuello Condition: GUARDED Referrals: JUAN COOK MD (PCP) Problem Qualifiers Primary Impression: Acute on chronic respiratory failure Respiratory failure complication: hypoxia Qualified Codes: J96.21 - Acute and chronic respiratory failure with hypoxia Additional Impressions: Congestive heart failure (CHF) Congestive heart failure type: unspecified congestive heart failure type Congestive heart failure chronicity: acute on chronic Qualified Codes: I50.9 - Heart failure, unspecified COPD (chronic obstructive pulmonary disease) COPD type: unspecified COPD Qualified Codes: J44.9 - Chronic obstructive pulmonary disease, unspecified Urinary tract infection Urinary tract infection type: site unspecified Hematuria presence: with hematuria Qualified Codes: N39.0 - Urinary tract infection, site not specified ; R31.9 - Hematuria, unspecified NASIR SHIN MD Nov 16, 2016 11:22
--- NOTE | 2016-11-16 11:31 | EKG ---
[facility] [address] [place] [address] Test Date: 2016-11-16 Test Time: 10:20:29 Pat Name: JOSE VALENTINE Department: Room: Gender: F [employer]: : 1940 Requested By: NASIR SHIN Order Number: [id number] Reading MD: Measurements Intervals [place] Rate: 98 P: IA: QRS: -14 QRSD: 106 T: 107 QT: 340 QTc: 436 Interpretive Statements IRREGULAR RHYTHM, NO P-WAVE FOUND LEFTWARD AXIS T ABNORMALITY IN HIGH LATERAL LEADS RI6.01 Unconfirmed report No previous ECG available for comparison
[2016-11-16 11:45] LABS: CALCIUM 8.5 mg/dL (8.5-10.1); CREATININE 0.9 mg/dL (0.6-1.0); GFR 60.6; POTASSIUM 4.5 mmol/L (3.5-5.1)
[2016-11-16 11:49] LABS: % BASOS 1 % (0-3); PLT ESTIMATE ADEQUATE (ADEQUATE); POLYCHROMASIA SLIGHT
[2016-11-16 11:54] LABS: ALBUMIN 2.8 g/dL (3.4-5.0); DIRECT BILIRUBIN 0.2 mg/dL (0.0-0.2); MAGNESIUM 2.2 mg/dL (1.8-2.4); TOTAL BILIRUBIN 0.7 mg/dL (0.2-1.0)
[2016-11-16 11:58] LABS: CKMB MASS < 0.5 ng/mL (0.0-3.6); CREATINE KINASE 30 U/L (26-192)
[2016-11-16 12:09] LABS: BILIRUBIN,URINE NEGATIVE (NEG); GLUCOSE,URINE 500 mg/dL (NEG); NITRITE,URINE POSITIVE (NEG); PROTEIN,URINE 100 mg/dL (NEG-TRACE); UROBILINOGEN,URINE 0.2 mg/dL (0.2 mg/dL)
[2016-11-16 12:17] LABS: BACTERIA,URINE MANY /HPF (0-FEW); SQUAMOUS EPITHELIAL CELL,UR MANY /LPF
[2016-11-16 12:18] LABS: RBC,URINE FOBS /HPF (0-2); WBC,URINE TNTC /HPF (0-4)
[2016-11-16] MEDS ORDERED: IV NORMAL SALINE 1000ML BAG 1,000 ML IV SCH (12:36)
[2016-11-16] MEDS ORDERED: levOFLOXacin PER PHARMACY. MC PRN (12:45)
[2016-11-16] MEDS ORDERED: ONDANSETRON PF 4 MG/2 ML VIAL. IV PRN (12:45)
[2016-11-16] MEDS ORDERED: ACETAMINOPHEN 325 MG TABLET. PO PRN (12:45)
[2016-11-16] MEDS ORDERED: fentaNYL PF VIAL 100 MCG/2 ML VIAL IV PRN (12:45)
[2016-11-16] MEDS ORDERED: FUROSEMIDE 40 MG/4 ML VIAL. IVP ONE ×2 (13:30→22:15)
[2016-11-16 13:45] VITALS: BP 112/53
[2016-11-16 15:00] VITALS: BP 114/54
--- NOTE | 2016-11-16 15:03 | PDOC ---
PULMONARY PROGRESS NOTES Vitals Vital Signs Date Time Temp Pulse Resp B/P (MAP) Pulse Ox O2 Delivery O2 Flow Rate FiO2 11/16/16 13:45 100.6 93 24 112/53 (72) 91 Nasal Cannula 2.0 100.6 Labs Laboratory Tests Test 11/16/16 10:20 11/16/16 10:25 11/16/16 11:25 11/16/16 11:58 Lactic Acid Level 1.4 mmol/L (0.4-2.0) White Blood Count 12.4 x10^3/uL (4.0-11.0) Red Blood Count 2.93 x10^6/uL (3.50-5.40) Hemoglobin 9.7 g/dL (12.0-15.5) Hematocrit 29.2 % (36.0-47.0) Mean Corpuscular Volume 100 fL (79-100) Mean Corpuscular Hemoglobin 33 pg (25-35) Mean Corpuscular Hemoglobin Concent 33 g/dL (31-37) Red Cell Distribution Width 14.2 % (11.5-14.5) Platelet Count 240 x10^3/uL (140-400) Neutrophils (%) (Auto) 86 % (31-73) Lymphocytes (%) (Auto) 5 % (24-48) Monocytes (%) (Auto) 9 % (0-9) Eosinophils (%) (Auto) 0 % (0-3) Basophils (%) (Auto) 0 % (0-3) Neutrophils # (Auto) 10.6 x10^3uL (1.8-7.7) Lymphocytes # (Auto) 0.6 x10^3/uL (1.0-4.8) Monocytes # (Auto) 1.1 x10^3/uL (0.0-1.1) Eosinophils # (Auto) 0.0 x10^3/uL (0.0-0.7) Basophils # (Auto) 0.1 x10^3/uL (0.0-0.2) Segmented Neutrophils % 87 % (35-66) Band Neutrophils % 2 % (0-9) Lymphocytes % 4 % (24-48) Monocytes % 6 % (0-10) Basophils % 1 % (0-3) Platelet Estimate Adequate (ADEQUATE) Polychromasia Slight Sodium Level 140 mmol/L (136-145) Potassium Level 4.5 mmol/L (3.5-5.1) Chloride Level 103 mmol/L (98-107) Carbon Dioxide Level 32 mmol/L (21-32) Anion Gap 5 (6-14) Blood Urea Nitrogen 12 mg/dL (7-20) Creatinine 0.9 mg/dL (0.6-1.0) Estimated GFR (Cockcroft-Gault) 60.6 Glucose Level 192 mg/dL (70-99) Calcium Level 8.5 mg/dL (8.5-10.1) Magnesium Level 2.2 mg/dL (1.8-2.4) Total Bilirubin 0.7 mg/dL (0.2-1.0) Direct Bilirubin 0.2 mg/dL (0.0-0.2) Aspartate Amino Transf (AST/SGOT) 9 U/L (15-37) Alanine Aminotransferase (ALT/SGPT) 16 U/L (14-59) Alkaline Phosphatase 77 U/L (46-116) Creatine Kinase 30 U/L (26-192) Creatine Kinase MB (Mass) < 0.5 ng/mL (0.0-3.6) Creatine Kinase MB Relative Index % (0-4) Troponin I Quantitative < 0.017 ng/mL (0.000-0.055) YB-Ocb-U-Type Natriuretic Peptide 3353 pg/mL (0-449) Total Protein 6.0 g/dL (6.4-8.2) Albumin 2.8 g/dL (3.4-5.0) Lipase 109 U/L (73-393) Urine Collection Type Unknown Urine Color Yellow Urine Clarity Turbid Urine pH 6.0 Urine Specific [place] 1.020 Urine Protein 100 mg/dL (NEG-TRACE) Urine Glucose (UA) 500 mg/dL (NEG) Urine Ketones (Stick) Negative mg/dL (NEG) Urine Blood Moderate (NEG) Urine Nitrite Positive (NEG) Urine Bilirubin Negative (NEG) Urine Urobilinogen Dipstick 0.2 mg/dL (0.2 mg/dL) Urine Leukocyte Esterase Large (NEG) Urine RBC Fobs /HPF (0-2) Urine WBC Tntc /HPF (0-4) Urine Squamous Epithelial Cells Many /LPF Urine Bacteria Many /HPF (0-FEW) Urine Mucus Marked /LPF Test 11/16/16 13:50 Troponin I Quantitative < 0.017 ng/mL (0.000-0.055) Laboratory Tests Test 11/16/16 10:20 11/16/16 10:25 11/16/16 11:25 11/16/16 11:58 Lactic Acid Level 1.4 mmol/L (0.4-2.0) White Blood Count 12.4 x10^3/uL (4.0-11.0) Red Blood Count 2.93 x10^6/uL (3.50-5.40) Hemoglobin 9.7 g/dL (12.0-15.5) Hematocrit 29.2 % (36.0-47.0) Mean Corpuscular Volume 100 fL (79-100) Mean Corpuscular Hemoglobin 33 pg (25-35) Mean Corpuscular Hemoglobin Concent 33 g/dL (31-37) Red Cell Distribution Width 14.2 % (11.5-14.5) Platelet Count 240 x10^3/uL (140-400) Neutrophils (%) (Auto) 86 % (31-73) Lymphocytes (%) (Auto) 5 % (24-48) Monocytes (%) (Auto) 9 % (0-9) Eosinophils (%) (Auto) 0 % (0-3) Basophils (%) (Auto) 0 % (0-3) Neutrophils # (Auto) 10.6 x10^3uL (1.8-7.7) Lymphocytes # (Auto) 0.6 x10^3/uL (1.0-4.8) Monocytes # (Auto) 1.1 x10^3/uL (0.0-1.1) Eosinophils # (Auto) 0.0 x10^3/uL (0.0-0.7) Basophils # (Auto) 0.1 x10^3/uL (0.0-0.2) Segmented Neutrophils % 87 % (35-66) Band Neutrophils % 2 % (0-9) Lymphocytes % 4 % (24-48) Monocytes % 6 % (0-10) Basophils % 1 % (0-3) Platelet Estimate Adequate (ADEQUATE) Polychromasia Slight Sodium Level 140 mmol/L (136-145) Potassium Level 4.5 mmol/L (3.5-5.1) Chloride Level 103 mmol/L (98-107) Carbon Dioxide Level 32 mmol/L (21-32) Anion Gap 5 (6-14) Blood Urea Nitrogen 12 mg/dL (7-20) Creatinine 0.9 mg/dL (0.6-1.0) Estimated GFR (Cockcroft-Gault) 60.6 Glucose Level 192 mg/dL (70-99) Calcium Level 8.5 mg/dL (8.5-10.1) Magnesium Level 2.2 mg/dL (1.8-2.4) Total Bilirubin 0.7 mg/dL (0.2-1.0) Direct Bilirubin 0.2 mg/dL (0.0-0.2) Aspartate Amino Transf (AST/SGOT) 9 U/L (15-37) Alanine Aminotransferase (ALT/SGPT) 16 U/L (14-59) Alkaline Phosphatase 77 U/L (46-116) Creatine Kinase 30 U/L (26-192) Creatine Kinase MB (Mass) < 0.5 ng/mL (0.0-3.6) Creatine Kinase MB Relative Index % (0-4) Troponin I Quantitative < 0.017 ng/mL (0.000-0.055) LY-Sar-V-Type Natriuretic Peptide 3353 pg/mL (0-449) Total Protein 6.0 g/dL (6.4-8.2) Albumin 2.8 g/dL (3.4-5.0) Lipase 109 U/L (73-393) Urine Collection Type Unknown Urine Color Yellow Urine Clarity Turbid Urine pH 6.0 Urine Specific [place] 1.020 Urine Protein 100 mg/dL (NEG-TRACE) Urine Glucose (UA) 500 mg/dL (NEG) Urine Ketones (Stick) Negative mg/dL (NEG) Urine Blood Moderate (NEG) Urine Nitrite Positive (NEG) Urine Bilirubin Negative (NEG) Urine Urobilinogen Dipstick 0.2 mg/dL (0.2 mg/dL) Urine Leukocyte Esterase Large (NEG) Urine RBC Fobs /HPF (0-2) Urine WBC Tntc /HPF (0-4) Urine Squamous Epithelial Cells Many /LPF Urine Bacteria Many /HPF (0-FEW) Urine Mucus Marked /LPF Test 11/16/16 13:50 Troponin I Quantitative < 0.017 ng/mL (0.000-0.055) Medications Active Scripts Medications Dose Route/Sig Max Daily Dose Days Date Category Dose Instructions Cyclobenzaprine Hcl 10 Mg Tablet 1 Tab PO TID 10/07/16 Rx [place] 5-325 Tablet (Acetaminophen/Hydrocodone Bitart) 1 Each Tablet 1 Tab PO PRN Q6HRS PRN 10/07/16 Rx Aspirin Ec (Aspirin) 325 Mg Tablet.dr 1 Tab PO BID 12/26/15 Reported Last dose: 12-27-15 at 08 am. Next dose: 12-27-15 at 9 pm tonight. Hydrocodone-Apap 7.5-325 (Hydrocodone Bit/Acetaminophen) 1 Each Tablet 1-2 Tab PO PRN Q6HRS PRN 12/26/15 Reported Took at 2:30 today may take anytime as needed every 6 hours Synthroid (Levothyroxine Sodium) 150 Mcg Tablet 1 Tab PO DAILY 12/16/15 Reported Last dose taken: 12-27-15 at 07am Next dose: 12-28-15 at 07am Amaryl (Glimepiride) 4 Mg Tablet 1 Tab PO BID 12/16/15 Reported Last dose taken 12/27/15 at 08:30 am. Next dose: 12/27/15 at 6pm Saline Nasal [place] (Sodium Chloride) 30 Ml [place] 30 Ml NS PRN PRN 07/18/15 Reported May resume at home as needed. Lasix (Furosemide) 20 Mg Tablet 1 Tab PO DAILY 07/18/15 Reported None taken today may resume in am. Zyrtec (Cetirizine Hcl) 10 Mg Tablet 1 Tab PO PRN PRN 07/18/15 Reported Not taken in hosp. May resume at home as directed as needed Albuterol Sulfate Neb Soln (Albuterol Sulfate) 2.5 Mg/3 Ml Vial.neb 1 Vial NEB BID 07/18/15 Reported LAST DOSE GIVEN: DATE:12-27-15 TIME:8:00 a.m. NEXT DOSE DUE: DATE:12-27-15 TIME:9:00 p.m. Flovent 110MCG Hfa (Fluticasone Propionate) 12 Gm Aer.w.adap 220 Mcg IH BID 07/18/15 Reported LAST DOSE GIVEN: DATE: 12-27-15 TIME: 9:00 a.m. NEXT DOSE DUE: DATE: 12-27-15 TIME: 9:00 p.m. Tylenol Extra Strength (Acetaminophen) 500 Mg Tablet 1,500 Mg PO BID 04/17/15 Reported Last dose taken at 0800 am. Take home as directed but do not take with pain medications and do not exceed 4,000mg in 24 hour period. Potassium Chloride 20 Meq Tab.er.prt 1 Tab PO DAILY 04/17/15 Reported LAST DOSE GIVEN: DATE: 12-27-15 TIME: 8:30 a.m. NEXT DOSE DUE: DATE: 12-28-15 TIME: 8:30 a.m. Metolazone 5 Mg Tablet 5 Mg PO DAILY 04/16/15 Reported LAST DOSE GIVEN: DATE: 12-27-15 TIME: 8:30 a.m. NEXT DOSE DUE: DATE: 12-28-15 TIME: 8:30 a.m. Lexapro (Escitalopram Oxalate) 10 Mg Tablet 10 Mg PO DAILY 05/01/13 Reported LAST DOSE GIVEN: DATE: 12-27-15 TIME: 8:30 a.m. NEXT DOSE DUE: DATE: 12-28-15 TIME: 8:30 a.m. Cardizem Cd (Diltiazem Hcl) 240 Mg Cap.er.24h 240 Mg PO HS 05/01/13 Reported LAST DOSE GIVEN: DATE: 12-26-15 TIME: 9:00 p.m. NEXT DOSE DUE: DATE: 12-27-15 TIME: 9:00 p.m. Losartan Potassium 100 Mg Tablet 100 Mg PO DAILY 05/01/13 Reported None taken today resume in am. Crestor (Rosuvastatin Calcium) 40 Mg Tablet 40 Mg PO QHS 05/01/13 Reported LAST DOSE GIVEN: DATE: 12-26-15 TIME: 9:00 p.m. NEXT DOSE DUE: DATE: 12-27-15 TIME: 9:00 p.m. Impression . FULL CONSULT DICTATED SEE ORDERS THANKS MOSTLY ACUTE CHF UTI HARLEEN MENDOZA MD Nov 16, 2016 15:03
[2016-11-16] MEDS ORDERED: CETIRIZINE HCL 10 MG TABLET. PO PRN (15:15)
[2016-11-16] MEDS ORDERED: SODIUM CHLORIDE 0.65% NASAL SPRAY 45ML BOTTLE. NS PRN (15:15)
[2016-11-16] MEDS ORDERED: ASPI-630 PO (15:25)
--- NOTE | 2016-11-16 15:29 | PDOC1 ---
History and Physical Date of Admission Date of Admission DATE: 11/16/16 TIME: 15:21 Identification/Chief Complaint Chief Complaint short of breath Problems: Source Source: Chart review, Patient History of Present Illness History of Present Illness Ms. Will, is a 76 year old admit from ER with acute shortness breath for the past 2 days. New LE edema, worsening left leg more than right, which she says is normal for her. She reports hx of congestive heart failure and COPD, but was taken off diruetics 2 weeks ago by her PCP. CV care with Dr. Baez more than one week of acutely worsening leg swelling, weight gain noted dyspnea was much worse today, no pain, she feels better after treatments started in the ER, lasix, abx, nebs Past Medical History Cardiovascular: CAD Pulmonary: COPD Psych: Anxiety Musculoskeletal: Other Endocrine: Diabetes Past Surgical History Past Surgical History: Appendectomy, Cholecystectomy, CABG, Tonsillectomy, Hysterectomy Family History Family History: No Significant Social History Smoke: No ALCOHOL: none Drugs: None Current Problem List Problem List Problems Medical Problems: (1) Congestive heart failure (CHF) Status: Acute (2) COPD (chronic obstructive pulmonary disease) Status: Acute (3) Moderate protein malnutrition Status: Acute (4) Urinary tract infection Status: Acute Problems: Current Medications Current Medications Current Medications Ondansetron HCl (Zofran) 4 mg PRN Q8HRS PRN IV NAUSEA/VOMITING; Start 11/16/16 at 12:45; Stop 11/17/16 at 12:44 Fentanyl Citrate (Fentanyl 2ml Vial) 50 mcg PRN Q2HR PRN IV PAIN; Start at 12:45; Stop 11/17/16 at 12:44 Sodium Chloride 1,000 ml @ 100 mls/hr Q10H IV ; Start 11/16/16 at 12:36; Stop 11/17/16 at 12:35 Acetaminophen (Tylenol) 650 mg PRN Q4HRS PRN PO FEVER Last administered on 11/16t 14:14; Start 11/16/16 at 12:45; Stop 11/17/16 at 12:44 Albuterol/ Ipratropium (Duoneb) 3 ml RTQID NEB ; Start 11/16/16 at 13:00; Stop 11/17/16 at 12:59 Levofloxacin/ Dextrose (Levaquin Per Pharmacy) 1 each PRN DAILY PRN MC SEE COMMENTS; Start 11/16/16 at 12:45 Levofloxacin/ Dextrose 100 ml @ 100 mls/hr Q24H IV Last administered on 14:14; Start 11/16/16 at 13:00 Furosemide (Lasix) 40 mg 1X ONCE IVP Last administered on 11/16/16t 14:14; Start 11/16/16 at 13:30; Stop 11/16/16 at 13:31; Status DC Aspirin (Ecotrin) 325 mg BID PO ; Start 11/16/16 at 21:00 Cetirizine HCl (ZyrTEC) 10 mg PRN DAILY PRN PO ALLERGIES; Start 11/16/16 at 15: 15 Cyclobenzaprine HCl (Flexeril) 10 mg TID PO ; Start 11/16/16 at 16:00 Diltiazem HCl (Cardizem 24hr Cd) 240 mg HS PO ; Start 11/16/16 at 21:00 Furosemide (Lasix) 20 mg DAILY PO ; Start 11/16/16 at 16:00 Acetaminophen/ Hydrocodone Bitart (Lortab 7.5/325) 1 tab PRN Q6HRS PRN PO PAIN ; Start 11/16/16 at 15:15 Levothyroxine Sodium (Synthroid) 150 mcg DAILY07 PO ; Start 11/16/16 at 16:00 Potassium Chloride (Klor-Con) 20 meq DAILY PO ; Start 11/17/16 at 09:00 Sodium Chloride (Saline Mist Nasal) 1 nara PRN Q6HRS PRN NS nasal dryness; Start 11/16/16 at 15:15 Citalopram Hydrobromide (CeleXA) 20 mg DAILY PO ; Start 11/17/16 at 09:00 Non-Formulary Medication 220 mcg BID IH ; Start 11/16/16 at 21:00; Status UNV Glimepiride (Amaryl) 4 mg BIDWMEALS PO ; Start 11/16/16 at 17:00 Losartan Potassium (Cozaar) 100 mg DAILY PO ; Start 11/16/16 at 16:00 Atorvastatin Calcium (Lipitor) 80 mg QHS PO ; Start 11/16/16 at 21:00 Budesonide (Pulmicort) 0.5 mg RTBID NEB ; Start 11/16/16 at 20:00 Active Scripts Active Cyclobenzaprine Hcl 10 Mg Tablet 1 Tab PO TID [place] 5-325 Tablet (Acetaminophen/Hydrocodone Bitart) 1 Each Tablet 1 Tab PO PRN Q6HRS PRN Reported Aspirin Ec (Aspirin) 325 Mg Tablet. 1 Tab PO BID Last dose: 12-27-15 at 08 am. Next dose: 12-27-15 at 9 pm tonight. Hydrocodone-Apap 7.5-325 (Hydrocodone Bit/Acetaminophen) 1 Each Tablet 1-2 Tab PO PRN Q6HRS PRN Took at 2:30 today may take anytime as needed every 6 hours Synthroid (Levothyroxine Sodium) 150 Mcg Tablet 1 Tab PO DAILY Last dose taken: 12-27-15 at 07am Next dose: 12-28-15 at 07am Amaryl (Glimepiride) 4 Mg Tablet 1 Tab PO BID Last dose taken 12/27/15 at 08:30 am. Next dose: 12/27/15 at 6pm Saline Nasal [place] (Sodium Chloride) 30 Ml [place] 30 Ml NS PRN PRN May resume at home as needed. Lasix (Furosemide) 20 Mg Tablet 1 Tab PO DAILY None taken today may resume in am. Zyrtec (Cetirizine Hcl) 10 Mg Tablet 1 Tab PO PRN PRN Not taken in hosp. May resume at home as directed as needed Albuterol Sulfate Neb Soln (Albuterol Sulfate) 2.5 Mg/3 Ml Vial.neb 1 Vial NEB BID LAST DOSE GIVEN: DATE:12-27-15 TIME:8:00 a.m. NEXT DOSE DUE: DATE:12-27-15 TIME:9:00 p.m. Flovent 110MCG Hfa (Fluticasone Propionate) 12 Gm Aer.w.adap 220 Mcg IH BID LAST DOSE GIVEN: DATE: 12-27-15 TIME: 9:00 a.m. NEXT DOSE DUE: DATE: 12-27-15 TIME: 9:00 p.m. Tylenol Extra Strength (Acetaminophen) 500 Mg Tablet 1,500 Mg PO BID Last dose taken at 0800 am. Take home as directed but do not take with pain medications and do not exceed 4,000mg in 24 hour period. Potassium Chloride 20 Meq Tab.er.prt 1 Tab PO DAILY LAST DOSE GIVEN: DATE: 12-27-15 TIME: 8:30 a.m. NEXT DOSE DUE: DATE: 12-28-15 TIME: 8:30 a.m. Metolazone 5 Mg Tablet 5 Mg PO DAILY LAST DOSE GIVEN: DATE: 12-27-15 TIME: 8:30 a.m. NEXT DOSE DUE: DATE: 12-28-15 TIME: 8:30 a.m. Lexapro (Escitalopram Oxalate) 10 Mg Tablet 10 Mg PO DAILY LAST DOSE GIVEN: DATE: 12-27-15 TIME: 8:30 a.m. NEXT DOSE DUE: DATE: 12-28-15 TIME: 8:30 a.m. Cardizem Cd (Diltiazem Hcl) 240 Mg Cap.er.24h 240 Mg PO HS LAST DOSE GIVEN: DATE: 12-26-15 TIME: 9:00 p.m. NEXT DOSE DUE: DATE: 12-27-15 TIME: 9:00 p.m. Losartan Potassium 100 Mg Tablet 100 Mg PO DAILY None taken today resume in am. Crestor (Rosuvastatin Calcium) 40 Mg Tablet 40 Mg PO QHS LAST DOSE GIVEN: DATE: 12-26-15 TIME: 9:00 p.m. NEXT DOSE DUE: DATE: 12-27-15 TIME: 9:00 p.m. Allergies Allergies: Coded Allergies: SEAN Inhibitors (Verified Allergy, Intermediate, 11/16/16) Iodinated Contrast- Oral and IV Dye (Verified Allergy, Intermediate, ) Penicillins (Verified Allergy, Intermediate, 11/16/16) sulfamethoxazole (Verified Allergy, Intermediate, 11/16/16) trimethoprim (Verified Allergy, Intermediate, 11/16/16) ROS General: YES: Fatigue, No: Chills, Night Sweats, Malaise, Appetite, Other PSYCHOLOGICAL ROS: No: Anxiety, Behavioral Disorder, Concentration difficultie , Decreased libido, Depression, Disorientation, Hallucinations, Hostility, Irritablity, Memory difficulties, Mood Swings, Obsessive thoughts, Other Eyes: No Blurry vision, No Decreased vision, No Double vision, No Dry eyes, No Excessive tearing, No Eye Pain, No Itchy Eyes, No Loss of vision, No Photophobia , No Scotomata, No Uses contacts, No Uses glasses, No Other HEENT: YES: Heacaches, No: Visual Changes, Hearing change, Nasal congestion, Nasal discharge, Oral lesions, Sinus pain, Sore Throat, Epistaxis, Sneezing, Snoring, Tinnitus, Vertigo, Vocal changes, Other Respiratory: No: Cough, Hemoptysis, Orthopnea, Pleuritic Pain, Shortness of breath, SOB with excertion, Sputum Changes, Stridor, Tachypnea, Wheezing, Other Cardiovascular: yes Edema, No Chest Pain, No Palpitations, No Orthopnea, No Paroxysmal Noc. Dyspnea, No Lt Headedness, No Other Gastrointestinal: Yes Nausea, No Vomiting, No Abdominal Pain, No Diarrhea, No Constipation, No Melena, No Hematochezia, No Other Genitourinary: No Dysuria, No Frequency, No Incontinence, No Hematuria, No Retention, No Discharge, No Urgency, No Pain, No Flank Pain, No Other, No , No , No , No , No , No , No Musculoskeletal: No Gait Disturbance, No Joint Pain, No Joint Stiffness, No Joint Swelling, No Muscle Pain, No Muscular Weakness, No Pain In:, No Swelling In:, No Other Neurological: No Behavorial Changes, No Bowel/Bladder ControlChng, No Confusion , No Dizziness, No Gait Disturbance, No Headaches, No Impaired Coord/balance, No Memory Loss, No Numbness/Tingling, No Seizures, No Speech Problems, No Tremors, No Visual Changes, No Weakness, No Other Skin: No Dry Skin, No Eczema, No Hair Changes, No Lumps, No Mole Changes, No Mottling, No Nail Changes, No Pruritus, No Rash, No Skin Lesion Changes, No Other, No Acne Physical Exam General: Alert, Oriented X3, Cooperative, mild distress HEENT: Atraumatic, PERRLA, EOMI, Mucous membr. moist/pink Abdomen: Normal bowel sounds, Soft Rectal Exam: not examined Extremities: No cyanosis, Other (2+ LE edema) Skin: No rashes, No significant lesion Neuro: Normal speech, Normal tone, Sensation intact Psych/Mental Status: Mental status NL, Mood NL Vitals Vitals Vital Signs Date Time Temp Pulse Resp B/P (MAP) Pulse Ox O2 Delivery O2 Flow Rate FiO2 11/16/16 15:00 100.5 94 22 114/54 (74) 92 Nasal Cannula 2.0 100.5 Labs Labs Laboratory Tests Test 11/16/16 10:20 9/25/17 10:25 11/16/16 11:25 11/16/16 11:58 Lactic Acid Level 1.4 mmol/L (0.4-2.0) White Blood Count 12.4 x10^3/uL (4.0-11.0) Red Blood Count 2.93 x10^6/uL (3.50-5.40) Hemoglobin 9.7 g/dL (12.0-15.5) Hematocrit 29.2 % (36.0-47.0) Mean Corpuscular Volume 100 fL (79-100) Mean Corpuscular Hemoglobin 33 pg (25-35) Mean Corpuscular Hemoglobin Concent 33 g/dL (31-37) Red Cell Distribution Width 14.2 % (11.5-14.5) Platelet Count 240 x10^3/uL (140-400) Neutrophils (%) (Auto) 86 % (31-73) Lymphocytes (%) (Auto) 5 % (24-48) Monocytes (%) (Auto) 9 % (0-9) Eosinophils (%) (Auto) 0 % (0-3) Basophils (%) (Auto) 0 % (0-3) Neutrophils # (Auto) 10.6 x10^3uL (1.8-7.7) Lymphocytes # (Auto) 0.6 x10^3/uL (1.0-4.8) Monocytes # (Auto) 1.1 x10^3/uL (0.0-1.1) Eosinophils # (Auto) 0.0 x10^3/uL (0.0-0.7) Basophils # (Auto) 0.1 x10^3/uL (0.0-0.2) Segmented Neutrophils % 87 % (35-66) Band Neutrophils % 2 % (0-9) Lymphocytes % 4 % (24-48) Monocytes % 6 % (0-10) Basophils % 1 % (0-3) Platelet Estimate Adequate (ADEQUATE) Polychromasia Slight Sodium Level 140 mmol/L (136-145) Potassium Level 4.5 mmol/L (3.5-5.1) Chloride Level 103 mmol/L (98-107) Carbon Dioxide Level 32 mmol/L (21-32) Anion Gap 5 (6-14) Blood Urea Nitrogen 12 mg/dL (7-20) Creatinine 0.9 mg/dL (0.6-1.0) Estimated GFR (Cockcroft-Gault) 60.6 Glucose Level 192 mg/dL (70-99) Calcium Level 8.5 mg/dL (8.5-10.1) Magnesium Level 2.2 mg/dL (1.8-2.4) Total Bilirubin 0.7 mg/dL (0.2-1.0) Direct Bilirubin 0.2 mg/dL (0.0-0.2) Aspartate Amino Transf (AST/SGOT) 9 U/L (15-37) Alanine Aminotransferase (ALT/SGPT) 16 U/L (14-59) Alkaline Phosphatase 77 U/L (46-116) Creatine Kinase 30 U/L (26-192) Creatine Kinase MB (Mass) < 0.5 ng/mL (0.0-3.6) Creatine Kinase MB Relative Index % (0-4) Troponin I Quantitative < 0.017 ng/mL (0.000-0.055) IM-Tkl-G-Type Natriuretic Peptide 3353 pg/mL (0-449) Total Protein 6.0 g/dL (6.4-8.2) Albumin 2.8 g/dL (3.4-5.0) Lipase 109 U/L (73-393) Urine Collection Type Unknown Urine Color Yellow Urine Clarity Turbid Urine pH 6.0 Urine Specific [place] 1.020 Urine Protein 100 mg/dL (NEG-TRACE) Urine Glucose (UA) 500 mg/dL (NEG) Urine Ketones (Stick) Negative mg/dL (NEG) Urine Blood Moderate (NEG) Urine Nitrite Positive (NEG) Urine Bilirubin Negative (NEG) Urine Urobilinogen Dipstick 0.2 mg/dL (0.2 mg/dL) Urine Leukocyte Esterase Large (NEG) Urine RBC Fobs /HPF (0-2) Urine WBC Tntc /HPF (0-4) Urine Squamous Epithelial Cells Many /LPF Urine Bacteria Many /HPF (0-FEW) Urine Mucus Marked /LPF Test 11/16/16 13:50 Troponin I Quantitative < 0.017 ng/mL (0.000-0.055) Laboratory Tests Test 11/16/16 10:20 11/16/16 10:25 11/16/16 11:25 11/16/16 11:58 Lactic Acid Level 1.4 mmol/L (0.4-2.0) White Blood Count 12.4 x10^3/uL (4.0-11.0) Red Blood Count 2.93 x10^6/uL (3.50-5.40) Hemoglobin 9.7 g/dL (12.0-15.5) Hematocrit 29.2 % (36.0-47.0) Mean Corpuscular Volume 100 fL (79-100) Mean Corpuscular Hemoglobin 33 pg (25-35) Mean Corpuscular Hemoglobin Concent 33 g/dL (31-37) Red Cell Distribution Width 14.2 % (11.5-14.5) Platelet Count 240 x10^3/uL (140-400) Neutrophils (%) (Auto) 86 % (31-73) Lymphocytes (%) (Auto) 5 % (24-48) Monocytes (%) (Auto) 9 % (0-9) Eosinophils (%) (Auto) 0 % (0-3) Basophils (%) (Auto) 0 % (0-3) Neutrophils # (Auto) 10.6 x10^3uL (1.8-7.7) Lymphocytes # (Auto) 0.6 x10^3/uL (1.0-4.8) Monocytes # (Auto) 1.1 x10^3/uL (0.0-1.1) Eosinophils # (Auto) 0.0 x10^3/uL (0.0-0.7) Basophils # (Auto) 0.1 x10^3/uL (0.0-0.2) Segmented Neutrophils % 87 % (35-66) Band Neutrophils % 2 % (0-9) Lymphocytes % 4 % (24-48) Monocytes % 6 % (0-10) Basophils % 1 % (0-3) Platelet Estimate Adequate (ADEQUATE) Polychromasia Slight Sodium Level 140 mmol/L (136-145) Potassium Level 4.5 mmol/L (3.5-5.1) Chloride Level 103 mmol/L (98-107) Carbon Dioxide Level 32 mmol/L (21-32) Anion Gap 5 (6-14) Blood Urea Nitrogen 12 mg/dL (7-20) Creatinine 0.9 mg/dL (0.6-1.0) Estimated GFR (Cockcroft-Gault) 60.6 Glucose Level 192 mg/dL (70-99) Calcium Level 8.5 mg/dL (8.5-10.1) Magnesium Level 2.2 mg/dL (1.8-2.4) Total Bilirubin 0.7 mg/dL (0.2-1.0) Direct Bilirubin 0.2 mg/dL (0.0-0.2) Aspartate Amino Transf (AST/SGOT) 9 U/L (15-37) Alanine Aminotransferase (ALT/SGPT) 16 U/L (14-59) Alkaline Phosphatase 77 U/L (46-116) Creatine Kinase 30 U/L (26-192) Creatine Kinase MB (Mass) < 0.5 ng/mL (0.0-3.6) Creatine Kinase MB Relative Index % (0-4) Troponin I Quantitative < 0.017 ng/mL (0.000-0.055) LO-Wvg-Z-Type Natriuretic Peptide 3353 pg/mL (0-449) Total Protein 6.0 g/dL (6.4-8.2) Albumin 2.8 g/dL (3.4-5.0) Lipase 109 U/L (73-393) Urine Collection Type Unknown Urine Color Yellow Urine Clarity Turbid Urine pH 6.0 Urine Specific [place] 1.020 Urine Protein 100 mg/dL (NEG-TRACE) Urine Glucose (UA) 500 mg/dL (NEG) Urine Ketones (Stick) Negative mg/dL (NEG) Urine Blood Moderate (NEG) Urine Nitrite Positive (NEG) Urine Bilirubin Negative (NEG) Urine Urobilinogen Dipstick 0.2 mg/dL (0.2 mg/dL) Urine Leukocyte Esterase Large (NEG) Urine RBC Fobs /HPF (0-2) Urine WBC Tntc /HPF (0-4) Urine Squamous Epithelial Cells Many /LPF Urine Bacteria Many /HPF (0-FEW) Urine Mucus Marked /LPF Test 11/16/16 13:50 Troponin I Quantitative < 0.017 ng/mL (0.000-0.055) VTE Prophylaxis Ordered VTE Prophylaxis Devices: No VTE Pharmacological Prophylaxi: Yes Assessment/Plan Assessment/Plan UTI, w. fever, tachycardia, tachypnea and leukocytosis, + sepsis acute diastolic CHF, limit fluid, pt has new edema, will need diuresis, BP excellent 135/82 hypoxia, support as needed moderate malnutrition, albumin 2.8 in obesity, BMI 40 anemia, macrocytic, check B12 and folate COPD, stable PERFECTO WAITE MD Nov 16, 2016 15:29
[2016-11-16] MEDS: IPRATRPIUM/ALBUTEROL 0.5/2.5MG 3 ML NEBU. NEB SCH ×2 (15:40→19:21)
[2016-11-16 15:51] LABS: FOLATE 16.29 ng/ml (3.2-20.0)
[2016-11-16] MEDS: FUROSEMIDE 20 MG TABLET PO SCH (16:00)
[2016-11-16] MEDS: LOSARTAN POTASSIUM 50 MG TABLET. PO SCH (16:00)
[2016-11-16] MEDS ORDERED: CYCLOBENZAPRINE 10 MG TABLET. PO SCH (16:00)
[2016-11-16] MEDS: LEVOTHYROXINE 150 MCG TABLET PO SCH (16:00)
[2016-11-16] MEDS: GLIMEPIRIDE 2 MG TABLET. PO SCH (17:14)
--- NOTE | 2016-11-16 18:40 | PDOC2 ---
CONSULT Date of Consult Date of Consult DATE: 11/16/16 TIME: 18:32 Reason for Consult Reason for Consult: Dyspnea and edema Referring Physician Referring Physician: Dr. Cuello Identification/Chief Complaint Chief Complaint Dyspnea and edema Problems: History of Present Illness Reason for Visit: This lady's a 76-year-old that has a known history of CHF secondary to systolic and diastolic dysfunction. She also has COPD and hypertension. The patient has been having problems with hypotension and her diuretics have been decreased. She was on Lasix and Zaroxolyn both of which have been stopped. Over the last few days she started getting more edema and then gradually getting worsening dyspnea. She denies any palpitations, she denies any chest pains. Today she was having problems breathing and came into the emergency room where she was seen and evaluated and he was decided to admit her for further care. At the time that I saw her she states that she feels a little better since she cut the IV Lasix in the ER. Past Medical History Cardiovascular: AFIB, CAD, CHF, HTN Pulmonary: COPD Psych: Anxiety Musculoskeletal: Other Endocrine: Diabetes Past Surgical History Past Surgical History: Appendectomy, Cholecystectomy, CABG, Tonsillectomy, Hysterectomy Family History Family History: No Significant Social History No ALCOHOL: none Drugs: None Lives: Alone Current Problem List Problem List Problems Medical Problems: (1) Congestive heart failure (CHF) Status: Acute (2) COPD (chronic obstructive pulmonary disease) Status: Acute (3) Moderate protein malnutrition Status: Acute (4) Urinary tract infection Status: Acute Current Medications Current Medications Current Medications Ondansetron HCl (Zofran) 4 mg PRN Q8HRS PRN IV NAUSEA/VOMITING; Start 11/16/16 at 12:45; Stop 11/17/16 at 12:44 Fentanyl Citrate (Fentanyl 2ml Vial) 50 mcg PRN Q2HR PRN IV PAIN; Start at 12:45; Stop 11/17/16 at 12:44 Sodium Chloride 1,000 ml @ 100 mls/hr Q10H IV ; Start 11/16/16 at 12:36; Stop 11/16/16 at 15:29; Status DC Acetaminophen (Tylenol) 650 mg PRN Q4HRS PRN PO FEVER Last administered on 11/16t 14:14; Start 11/16/16 at 12:45; Stop 11/17/16 at 12:44 Albuterol/ Ipratropium (Duoneb) 3 ml RTQID NEB Last administered on 11/16/16 15:40; Start 11/16/16 at 13:00; Stop 11/17/16 at 12:59 Levofloxacin/ Dextrose (Levaquin Per Pharmacy) 1 each PRN DAILY PRN MC SEE COMMENTS; Start 11/16/16 at 12:45 Levofloxacin/ Dextrose 100 ml @ 100 mls/hr Q24H IV Last administered on 14:14; Start 11/16/16 at 13:00 Furosemide (Lasix) 40 mg 1X ONCE IVP Last administered on 11/16/16 14:14; Start 11/16/16 at 13:30; Stop 11/16/16 at 13:31; Status DC Aspirin (Ecotrin) 325 mg BID PO ; Start 11/16/16 at 21:00 Cetirizine HCl (ZyrTEC) 10 mg PRN DAILY PRN PO ALLERGIES; Start 11/16/16 at 15: 15 Cyclobenzaprine HCl (Flexeril) 10 mg TID PO ; Start 11/16/16 at 16:00; Stop at 16:36; Status DC Diltiazem HCl (Cardizem 24hr Cd) 240 mg HS PO ; Start 11/16/16 at 21:00 Furosemide (Lasix) 20 mg DAILY PO ; Start 11/16/16 at 16:00 Acetaminophen/ Hydrocodone Bitart (Lortab 7.5/325) 1 tab PRN Q6HRS PRN PO PAIN ; Start 11/16/16 at 15:15 Levothyroxine Sodium (Synthroid) 150 mcg DAILY07 PO ; Start 11/16/16 at 16:00 Potassium Chloride (Klor-Con) 20 meq DAILY PO ; Start 11/17/16 at 09:00 Sodium Chloride (Saline Mist Nasal) 1 nara PRN Q6HRS PRN NS nasal dryness; Start 11/16/16 at 15:15 Citalopram Hydrobromide (CeleXA) 20 mg DAILY PO ; Start 11/17/16 at 09:00 Non-Formulary Medication 220 mcg BID IH ; Start 11/16/16 at 21:00; Status UNV Glimepiride (Amaryl) 4 mg BIDWMEALS PO Last administered on 11/16/16t 17:14; Start 11/16/16 at 17:00 Losartan Potassium (Cozaar) 100 mg DAILY PO ; Start 11/16/16 at 16:00 Atorvastatin Calcium (Lipitor) 80 mg QHS PO ; Start 11/16/16 at 21:00 Budesonide (Pulmicort) 0.5 mg RTBID NEB ; Start 11/16/16 at 20:00 Enoxaparin Sodium (Lovenox Per Pharmacy Prophylaxis Dosing) 1 each PRN DAILY PRN [facility] SEE COMMENTS; Start 11/16/16 at 15:30 Enoxaparin Sodium (Lovenox 40mg Syringe) 40 mg Q12HR SQ ; Start 11/16/16 at 21: 00 Furosemide (Lasix) 40 mg 1X ONCE IVP ; Start 11/16/16 at 22:15; Stop 11/16/16 at 22:16 Furosemide (Lasix) 40 mg 1X ONCE IVP ; Start 11/17/16 at 06:00; Stop 11/17/16 at 06:01 Active Scripts Active Cyclobenzaprine Hcl 10 Mg Tablet 1 Tab PO TID [place] 5-325 Tablet (Acetaminophen/Hydrocodone Bitart) 1 Each Tablet 1 Tab PO PRN Q6HRS PRN Reported Aspirin 81 Mg Tab.chew 1 Tab PO DAILY Hydrocodone-Apap 7.5-325 (Hydrocodone Bit/Acetaminophen) 1 Each Tablet 1-2 Tab PO PRN Q6HRS PRN Took at 2:30 today may take anytime as needed every 6 hours Synthroid (Levothyroxine Sodium) 150 Mcg Tablet 1 Tab PO DAILY Last dose taken: 12-27-15 at 07am Next dose: 12-28-15 at 07am Amaryl (Glimepiride) 4 Mg Tablet 1 Tab PO BID Last dose taken 12/27/15 at 08:30 am. Next dose: 12/27/15 at 6pm Saline Nasal [place] (Sodium Chloride) 30 Ml [place] 30 Ml NS PRN PRN May resume at home as needed. Lasix (Furosemide) 20 Mg Tablet 1 Tab PO DAILY None taken today may resume in am. Zyrtec (Cetirizine Hcl) 10 Mg Tablet 1 Tab PO PRN PRN Not taken in hosp. May resume at home as directed as needed Albuterol Sulfate Neb Soln (Albuterol Sulfate) 2.5 Mg/3 Ml Vial.neb 1 Vial NEB BID LAST DOSE GIVEN: DATE:12-27-15 TIME:8:00 a.m. NEXT DOSE DUE: DATE:12-27-15 TIME:9:00 p.m. Flovent 110MCG Hfa (Fluticasone Propionate) 12 Gm Aer.w.adap 220 Mcg IH BID LAST DOSE GIVEN: DATE: 12-27-15 TIME: 9:00 a.m. NEXT DOSE DUE: DATE: 12-27-15 TIME: 9:00 p.m. Tylenol Extra Strength (Acetaminophen) 500 Mg Tablet 1,500 Mg PO BID Last dose taken at 0800 am. Take home as directed but do not take with pain medications and do not exceed 4,000mg in 24 hour period. Potassium Chloride 20 Meq Tab.er.prt 1 Tab PO DAILY LAST DOSE GIVEN: DATE: 12-27-15 TIME: 8:30 a.m. NEXT DOSE DUE: DATE: 12-28-15 TIME: 8:30 a.m. Metolazone 5 Mg Tablet 5 Mg PO DAILY LAST DOSE GIVEN: DATE: 12-27-15 TIME: 8:30 a.m. NEXT DOSE DUE: DATE: 12-28-15 TIME: 8:30 a.m. Lexapro (Escitalopram Oxalate) 10 Mg Tablet 10 Mg PO DAILY LAST DOSE GIVEN: DATE: 12-27-15 TIME: 8:30 a.m. NEXT DOSE DUE: DATE: 12-28-15 TIME: 8:30 a.m. Cardizem Cd (Diltiazem Hcl) 240 Mg Cap.er.24h 240 Mg PO HS LAST DOSE GIVEN: DATE: 12-26-15 TIME: 9:00 p.m. NEXT DOSE DUE: DATE: 12-27-15 TIME: 9:00 p.m. Losartan Potassium 100 Mg Tablet 100 Mg PO DAILY None taken today resume in am. Crestor (Rosuvastatin Calcium) 40 Mg Tablet 40 Mg PO QHS LAST DOSE GIVEN: DATE: 12-26-15 TIME: 9:00 p.m. NEXT DOSE DUE: DATE: 12-27-15 TIME: 9:00 p.m. Allergies Allergies: Coded Allergies: SEAN Inhibitors (Verified Allergy, Intermediate, 11/16/16) Iodinated Contrast- Oral and IV Dye (Verified Allergy, Intermediate, ) Penicillins (Verified Allergy, Intermediate, 11/16/16) sulfamethoxazole (Verified Allergy, Intermediate, 11/16/16) trimethoprim (Verified Allergy, Intermediate, 11/16/16) Physical Exam Physical Exam HEENT oral mucosa well hydrated. Neck is supple 2 centimeters JVD Lungs breath sounds are decreased, there are Rales in both bases. No significant wheezing at this time. Heart irregularly irregular, S1, S2, 1 to 2/6 systolic murmur. Abdomen is soft was also present. Extremities 2+ pitting edema. Vitals VITALS Vital Signs Date Time Temp Pulse Resp B/P (MAP) Pulse Ox O2 Delivery O2 Flow Rate FiO2 11/16/16 15:43 97 Nasal Cannula 2.0 11/16/16 15:00 100.5 94 22 114/54 (74) 100.5 Labs Labs Laboratory Tests Test 11/16/16 10:20 11/16/16 10:25 11/16/16 11:25 11/16/16 11:58 Lactic Acid Level 1.4 mmol/L (0.4-2.0) White Blood Count 12.4 x10^3/uL (4.0-11.0) Red Blood Count 2.93 x10^6/uL (3.50-5.40) Hemoglobin 9.7 g/dL (12.0-15.5) Hematocrit 29.2 % (36.0-47.0) Mean Corpuscular Volume 100 fL (79-100) Mean Corpuscular Hemoglobin 33 pg (25-35) Mean Corpuscular Hemoglobin Concent 33 g/dL (31-37) Red Cell Distribution Width 14.2 % (11.5-14.5) Platelet Count 240 x10^3/uL (140-400) Neutrophils (%) (Auto) 86 % (31-73) Lymphocytes (%) (Auto) 5 % (24-48) Monocytes (%) (Auto) 9 % (0-9) Eosinophils (%) (Auto) 0 % (0-3) Basophils (%) (Auto) 0 % (0-3) Neutrophils # (Auto) 10.6 x10^3uL (1.8-7.7) Lymphocytes # (Auto) 0.6 x10^3/uL (1.0-4.8) Monocytes # (Auto) 1.1 x10^3/uL (0.0-1.1) Eosinophils # (Auto) 0.0 x10^3/uL (0.0-0.7) Basophils # (Auto) 0.1 x10^3/uL (0.0-0.2) Segmented Neutrophils % 87 % (35-66) Band Neutrophils % 2 % (0-9) Lymphocytes % 4 % (24-48) Monocytes % 6 % (0-10) Basophils % 1 % (0-3) Platelet Estimate Adequate (ADEQUATE) Polychromasia Slight Vitamin B12 Level 281 pg/mL (247-911) Serum Folate 16.29 ng/ml (3.2-20.0) Sodium Level 140 mmol/L (136-145) Potassium Level 4.5 mmol/L (3.5-5.1) Chloride Level 103 mmol/L (98-107) Carbon Dioxide Level 32 mmol/L (21-32) Anion Gap 5 (6-14) Blood Urea Nitrogen 12 mg/dL (7-20) Creatinine 0.9 mg/dL (0.6-1.0) Estimated GFR (Cockcroft-Gault) 60.6 Glucose Level 192 mg/dL (70-99) Calcium Level 8.5 mg/dL (8.5-10.1) Magnesium Level 2.2 mg/dL (1.8-2.4) Total Bilirubin 0.7 mg/dL (0.2-1.0) Direct Bilirubin 0.2 mg/dL (0.0-0.2) Aspartate Amino Transf (AST/SGOT) 9 U/L (15-37) Alanine Aminotransferase (ALT/SGPT) 16 U/L (14-59) Alkaline Phosphatase 77 U/L (46-116) Creatine Kinase 30 U/L (26-192) Creatine Kinase MB (Mass) < 0.5 ng/mL (0.0-3.6) Creatine Kinase MB Relative Index % (0-4) Troponin I Quantitative < 0.017 ng/mL (0.000-0.055) KB-Fxb-A-Type Natriuretic Peptide 3353 pg/mL (0-449) Total Protein 6.0 g/dL (6.4-8.2) Albumin 2.8 g/dL (3.4-5.0) Lipase 109 U/L (73-393) Urine Collection Type Unknown Urine Color Yellow Urine Clarity Turbid Urine pH 6.0 Urine Specific Challenge 1.020 Urine Protein 100 mg/dL (NEG-TRACE) Urine Glucose (UA) 500 mg/dL (NEG) Urine Ketones (Stick) Negative mg/dL (NEG) Urine Blood Moderate (NEG) Urine Nitrite Positive (NEG) Urine Bilirubin Negative (NEG) Urine Urobilinogen Dipstick 0.2 mg/dL (0.2 mg/dL) Urine Leukocyte Esterase Large (NEG) Urine RBC Fobs /HPF (0-2) Urine WBC Tntc /HPF (0-4) Urine Squamous Epithelial Cells Many /LPF Urine Bacteria Many /HPF (0-FEW) Urine Mucus Marked /LPF Test 11/16/16 13:50 11/16/16 16:45 Troponin I Quantitative < 0.017 ng/mL (0.000-0.055) < 0.017 ng/mL (0.000-0.055) Laboratory Tests Test 11/16/16 10:20 11/16/16 10:25 11/16/16 11:25 11/16/16 11:58 Lactic Acid Level 1.4 mmol/L (0.4-2.0) White Blood Count 12.4 x10^3/uL (4.0-11.0) Red Blood Count 2.93 x10^6/uL (3.50-5.40) Hemoglobin 9.7 g/dL (12.0-15.5) Hematocrit 29.2 % (36.0-47.0) Mean Corpuscular Volume 100 fL (79-100) Mean Corpuscular Hemoglobin 33 pg (25-35) Mean Corpuscular Hemoglobin Concent 33 g/dL (31-37) Red Cell Distribution Width 14.2 % (11.5-14.5) Platelet Count 240 x10^3/uL (140-400) Neutrophils (%) (Auto) 86 % (31-73) Lymphocytes (%) (Auto) 5 % (24-48) Monocytes (%) (Auto) 9 % (0-9) Eosinophils (%) (Auto) 0 % (0-3) Basophils (%) (Auto) 0 % (0-3) Neutrophils # (Auto) 10.6 x10^3uL (1.8-7.7) Lymphocytes # (Auto) 0.6 x10^3/uL (1.0-4.8) Monocytes # (Auto) 1.1 x10^3/uL (0.0-1.1) Eosinophils # (Auto) 0.0 x10^3/uL (0.0-0.7) Basophils # (Auto) 0.1 x10^3/uL (0.0-0.2) Segmented Neutrophils % 87 % (35-66) Band Neutrophils % 2 % (0-9) Lymphocytes % 4 % (24-48) Monocytes % 6 % (0-10) Basophils % 1 % (0-3) Platelet Estimate Adequate (ADEQUATE) Polychromasia Slight Vitamin B12 Level 281 pg/mL (247-911) Serum Folate 16.29 ng/ml (3.2-20.0) Sodium Level 140 mmol/L (136-145) Potassium Level 4.5 mmol/L (3.5-5.1) Chloride Level 103 mmol/L (98-107) Carbon Dioxide Level 32 mmol/L (21-32) Anion Gap 5 (6-14) Blood Urea Nitrogen 12 mg/dL (7-20) Creatinine 0.9 mg/dL (0.6-1.0) Estimated GFR (Cockcroft-Gault) 60.6 Glucose Level 192 mg/dL (70-99) Calcium Level 8.5 mg/dL (8.5-10.1) Magnesium Level 2.2 mg/dL (1.8-2.4) Total Bilirubin 0.7 mg/dL (0.2-1.0) Direct Bilirubin 0.2 mg/dL (0.0-0.2) Aspartate Amino Transf (AST/SGOT) 9 U/L (15-37) Alanine Aminotransferase (ALT/SGPT) 16 U/L (14-59) Alkaline Phosphatase 77 U/L (46-116) Creatine Kinase 30 U/L (26-192) Creatine Kinase MB (Mass) < 0.5 ng/mL (0.0-3.6) Creatine Kinase MB Relative Index % (0-4) Troponin I Quantitative < 0.017 ng/mL (0.000-0.055) ED-Ere-W-Type Natriuretic Peptide 3353 pg/mL (0-449) Total Protein 6.0 g/dL (6.4-8.2) Albumin 2.8 g/dL (3.4-5.0) Lipase 109 U/L (73-393) Urine Collection Type Unknown Urine Color Yellow Urine Clarity Turbid Urine pH 6.0 Urine Specific Challenge 1.020 Urine Protein 100 mg/dL (NEG-TRACE) Urine Glucose (UA) 500 mg/dL (NEG) Urine Ketones (Stick) Negative mg/dL (NEG) Urine Blood Moderate (NEG) Urine Nitrite Positive (NEG) Urine Bilirubin Negative (NEG) Urine Urobilinogen Dipstick 0.2 mg/dL (0.2 mg/dL) Urine Leukocyte Esterase Large (NEG) Urine RBC Fobs /HPF (0-2) Urine WBC Tntc /HPF (0-4) Urine Squamous Epithelial Cells Many /LPF Urine Bacteria Many /HPF (0-FEW) Urine Mucus Marked /LPF Test 11/16/16 13:50 11/16/16 16:45 Troponin I Quantitative < 0.017 ng/mL (0.000-0.055) < 0.017 ng/mL (0.000-0.055) Assessment/Plan Assessment/Plan This patient has acute on chronic CHF secondary to systolic and diastolic murmur. She also has a known history of COPD but at this point it appears to be more of a CHF problems. She needs diuresing therefore I would like to reassume IV Lasix with her and may have to DC being losartan to avoid her hypotension. Recommend insertion of a Rivas catheter and give the Lasix 40 mg IV every 8 hours 3 doses. Thank you very much for asking me to participate in the care of this patient CRYSTAL ARCHULETA MD Nov 16, 2016 18:40
[2016-11-16] MEDS: BUDESONIDE 0.5 MG/2 ML NEBU. NEB SCH (19:21)
--- NOTE | 2016-11-16 19:32 | CONS ---
DATE OF CONSULTATION: 11/16/2016 ATTENDING PHYSICIAN: Darius Meléndez M.D. REASON FOR CONSULTATION: The patient seen in pulmonary consultation at the request of Dr. Meléndez for increasing shortness, very abnormal x-ray. HISTORY OF PRESENT ILLNESS: The patient is a 76-year-old female who has a history of COPD, quit tobacco 20 years ago, presented with increasing shortness of breath over the last 2-3 days, lower extremity edema, cough, mostly nonproductive and questionable subjective fever at home. The patient was evaluated in the Emergency Room. Chest x-ray was obtained. There are some increased interstitial markings. I was asked to see in consultation. The patient was also short of breath. She normally wears oxygen at home at 2 liters at bedtime. . She states that she was utilizing oxygen 24/7 for last 2-3 days. In the Emergency Room she had a temperature of 100.6. She also has a history compatible with obstructive sleep apnea, but she is intolerant to CPAP as a consequence of being claustrophobic. PAST MEDICAL HISTORY: 1. COPD with acute exacerbations once to twice per year. At home, she is on Flovent and p.r.n. albuterol. 2. Coronary artery disease with previous coronary artery bypass grafting in 2002. 3. Secondary pulmonary hypertension. 4. Type 2 diabetes. 5. Systemic hypertension. 6. Hyperlipidemia. PAST SURGICAL HISTORY: Status post coronary artery bypass grafting, in 2002. She is status post appendectomy, cholecystectomy, total abdominal hysterectomy with bilateral oophorectomy and previous cervical laminectomy along with carpal tunnel release. SOCIAL HISTORY: She currently lives at home, quit tobacco 8-10 years ago. FAMILY HISTORY: Noncontributory. REVIEW OF SYSTEMS: As indicated above, otherwise 10-point system was reviewed and negative. ALLERGIES: SEAN INHIBITORS, CONTRAST DYE, PENICILLINS, SULFAMETHOXAZOLE AND TRIMETHOPRIM. CURRENT MEDICATIONS: List was reviewed. PHYSICAL EXAMINATION: GENERAL: The patient was in no respiratory distress. VITAL SIGNS: Stable. O2 saturation greater than 92%. HEENT: Eyes, the sclerae were nonicteric. NECK: Jugular venous distention could not be assessed secondary to body habitus. CHEST: Full expansion. LUNGS: Slight crackles, no wheezes. CARDIOVASCULAR: Regular rate and rhythm with S1, S2, no S3. ABDOMEN: Soft, obese. EXTREMITIES: No clubbing, cyanosis, some edema. NEUROLOGIC: The patient was awake, alert, following commands. A detailed neuro exam was not performed. LABORATORY DATA: Reviewed. White count was elevated. Hemoglobin and hematocrit noted. Electrolytes were noted. BUN and creatinine were normal. BNP was elevated, total albumin was low. UA was positive for urine, nitrites and leukocyte esterase along with large amount of wbc's. IMPRESSION: 1. Acute respiratory distress secondary to acute mild congestive heart failure along with acute exacerbation of chronic obstructive pulmonary disease. 2. Abnormal x-ray compatible with mild interstitial infiltrates. 3. Secondary pulmonary hypertension on previous echocardiogram in April 2016 revealed a pulmonary artery pressure of 48. 4. Clinical symptoms and signs of obstructive sleep apnea, the patient does not wish to proceed with a sleep study. She is unable to tolerate CPAP secondary to claustrophobia. 5. Systemic hypertension. 6. Secondary pulmonary hypertension. 7. Positive urinary tract infection. 8. Severe protein malnutrition. PLAN: 1. Recommend current medical regimen including diuresis and antibiotics. 2. Oxygen supplementation. 3. Continue bronchodilators. 4. We will consult dietary for protein malnutrition. I do appreciate the privilege in sharing in Felicita's care. HARLEEN MENDOZA MD DR: VIKTOR/melva JOB#: [id number] / [id number]
[2016-11-16 19:50] VITALS: BP 117/81
[2016-11-16] MEDS ORDERED: FLUTICASONE PROPIONATE IH SCH (21:00)
[2016-11-16] MEDS: ASPIRIN ENTERIC COATED 325 MG TABLET.DR. PO SCH (21:08)
[2016-11-16] MEDS: ATORVASTATIN CALCIUM 40 MG TABLET. PO SCH (21:08)
[2016-11-16] MEDS: ENOXAPARIN 40 MG/0.4 ML SYRINGE. SQ SCH (21:10)
[2016-11-16 22:20] VITALS: BP 119/69
[2016-11-16] MEDS: HYDROcodone/APAP 7.5/325MG 1 TAB TABLET PO PRN (23:27)
[2016-11-17 03:45] VITALS: BP 116/75
[2016-11-17 04:58] LABS: BASO % 1 % (0-3); EOS % 1 % (0-3); HEMATOCRIT 31.3 % (36.0-47.0); HEMOGLOBIN 10.7 g/dL (12.0-15.5); LYMPH # 1.2 x10^3/uL (1.0-4.8); LYMPH % 14 % (24-48); MEAN CORPUSCULAR HEMOGLOBIN 34 pg (25-35); MEAN CORPUSCULAR HGB CONC 34 g/dL (31-37); MEAN CORPUSCULAR VOLUME 99 fL (79-100); MONO % 11 % (0-9); NEUT % 73 % (31-73); PLATELET COUNT 260 x10^3/uL (140-400); RED BLOOD COUNT 3.17 x10^6/uL (3.50-5.40); RED CELL DISTRIBUTION WIDTH 14.4 % (11.5-14.5); WHITE BLOOD COUNT 8.4 x10^3/uL (4.0-11.0)
[2016-11-17 05:08] LABS: ALBUMIN 2.9 g/dL (3.4-5.0); ALBUMIN/GLOBULIN RATIO 0.8 (1.0-1.7); CALCIUM 8.8 mg/dL (8.5-10.1); CREATININE 0.9 mg/dL (0.6-1.0); GFR 60.6; POTASSIUM 3.9 mmol/L (3.5-5.1); TOTAL BILIRUBIN 0.6 mg/dL (0.2-1.0); TOTAL PROTEIN 6.4 g/dL (6.4-8.2)
[2016-11-17] MEDS: LEVOTHYROXINE 150 MCG TABLET PO SCH (05:40)
[2016-11-17] MEDS: HYDROcodone/APAP 7.5/325MG 1 TAB TABLET PO PRN ×3 (05:41→22:36)
[2016-11-17] MEDS ORDERED: FUROSEMIDE 40 MG/4 ML VIAL. IVP ONE (06:00)
[2016-11-17 07:00] VITALS: BP 118/56
[2016-11-17] MEDS: IPRATRPIUM/ALBUTEROL 0.5/2.5MG 3 ML NEBU. NEB SCH ×3 (07:36→19:25)
[2016-11-17] MEDS: BUDESONIDE 0.5 MG/2 ML NEBU. NEB SCH ×2 (07:36→19:25)
[2016-11-17] MEDS: GLIMEPIRIDE 2 MG TABLET. PO SCH ×2 (09:23→17:24)
[2016-11-17] MEDS: ASPIRIN ENTERIC COATED 325 MG TABLET.DR. PO SCH ×2 (09:23→20:52)
[2016-11-17] MEDS: CITALOPRAM 20 MG TABLET. PO SCH (09:23)
[2016-11-17] MEDS: LOSARTAN POTASSIUM 50 MG TABLET. PO SCH (09:23)
[2016-11-17] MEDS: FUROSEMIDE 20 MG TABLET PO SCH (09:23)
[2016-11-17] MEDS: POTASSIUM CHLORIDE 20 MEQ TABLET.ER. PO SCH (09:23)
[2016-11-17] MEDS: ENOXAPARIN 40 MG/0.4 ML SYRINGE. SQ SCH (09:24)
[2016-11-17 10:54] VITALS: BP 102/64
--- NOTE | 2016-11-17 13:02 | PDOC ---
PROGRESS NOTES Chief Complaint Chief Complaint GNR UTI, no sepsis, SIRS infectious, no organ dysfcn acute diastolic CHF, Acute on chronci leg edema moderate malnutrition, , BMI 40 anemia, macrocytic, COPD, stable History of Present Illness History of Present Illness Legs better NO SOA On gil since lasix TID and K supplements per cards Elytes and creat ok PLAN Await cardiac rounds either home later today or julian AM On home O2 at home at night\ NO desats =- she refused 6 MW = no continuous desats per staff Vitals Vitals Vital Signs Date Time Temp Pulse Resp B/P (MAP) Pulse Ox O2 Delivery O2 Flow Rate FiO2 11/17/16 10:59 Nasal Cannula 2.0 11/17/16 10:54 98.4 77 21 102/64 (77) 96 98.4 Physical Exam General: Alert, Oriented X3, Cooperative, mild distress Abdomen: Normal bowel sounds, Soft Extremities: No cyanosis, Other (2+ LE edema) Skin: No rashes, No significant lesion Labs LABS Laboratory Tests Test 11/16/16 13:50 11/16/16 16:45 11/17/16 03:54 Troponin I Quantitative < 0.017 ng/mL (0.000-0.055) < 0.017 ng/mL (0.000-0.055) White Blood Count 8.4 x10^3/uL (4.0-11.0) Red Blood Count 3.17 x10^6/uL (3.50-5.40) Hemoglobin 10.7 g/dL (12.0-15.5) Hematocrit 31.3 % (36.0-47.0) Mean Corpuscular Volume 99 fL (79-100) Mean Corpuscular Hemoglobin 34 pg (25-35) Mean Corpuscular Hemoglobin Concent 34 g/dL (31-37) Red Cell Distribution Width 14.4 % (11.5-14.5) Platelet Count 260 x10^3/uL (140-400) Neutrophils (%) (Auto) 73 % (31-73) Lymphocytes (%) (Auto) 14 % (24-48) Monocytes (%) (Auto) 11 % (0-9) Eosinophils (%) (Auto) 1 % (0-3) Basophils (%) (Auto) 1 % (0-3) Neutrophils # (Auto) 6.2 x10^3uL (1.8-7.7) Lymphocytes # (Auto) 1.2 x10^3/uL (1.0-4.8) Monocytes # (Auto) 0.9 x10^3/uL (0.0-1.1) Eosinophils # (Auto) 0.1 x10^3/uL (0.0-0.7) Basophils # (Auto) 0.0 x10^3/uL (0.0-0.2) Sodium Level 142 mmol/L (136-145) Potassium Level 3.9 mmol/L (3.5-5.1) Chloride Level 100 mmol/L (98-107) Carbon Dioxide Level 33 mmol/L (21-32) Anion Gap 9 (6-14) Blood Urea Nitrogen 15 mg/dL (7-20) Creatinine 0.9 mg/dL (0.6-1.0) Estimated GFR (Cockcroft-Gault) 60.6 BUN/Creatinine Ratio 17 (6-20) Glucose Level 133 mg/dL (70-99) Calcium Level 8.8 mg/dL (8.5-10.1) Total Bilirubin 0.6 mg/dL (0.2-1.0) Aspartate Amino Transf (AST/SGOT) 15 U/L (15-37) Alanine Aminotransferase (ALT/SGPT) 17 U/L (14-59) Alkaline Phosphatase 79 U/L (46-116) Total Protein 6.4 g/dL (6.4-8.2) Albumin 2.9 g/dL (3.4-5.0) Albumin/Globulin Ratio 0.8 (1.0-1.7) Review of Systems Review of Systems no soa, no cp, Assessment and Plan Assessmemt and Plan Problems Medical Problems: (1) Congestive heart failure (CHF) Status: Acute (2) COPD (chronic obstructive pulmonary disease) Status: Acute (3) Moderate protein malnutrition Status: Acute (4) Urinary tract infection Status: Acute Problems: Comment Review of Relevant I have reviewed the following items donald (where applicable) has been applied. Labs Laboratory Tests Test 11/16/16 10:20 11/16/16 10:25 11/16/16 11:25 11/16/16 11:58 Lactic Acid Level 1.4 mmol/L (0.4-2.0) White Blood Count 12.4 x10^3/uL (4.0-11.0) Red Blood Count 2.93 x10^6/uL (3.50-5.40) Hemoglobin 9.7 g/dL (12.0-15.5) Hematocrit 29.2 % (36.0-47.0) Mean Corpuscular Volume 100 fL (79-100) Mean Corpuscular Hemoglobin 33 pg (25-35) Mean Corpuscular Hemoglobin Concent 33 g/dL (31-37) Red Cell Distribution Width 14.2 % (11.5-14.5) Platelet Count 240 x10^3/uL (140-400) Neutrophils (%) (Auto) 86 % (31-73) Lymphocytes (%) (Auto) 5 % (24-48) Monocytes (%) (Auto) 9 % (0-9) Eosinophils (%) (Auto) 0 % (0-3) Basophils (%) (Auto) 0 % (0-3) Neutrophils # (Auto) 10.6 x10^3uL (1.8-7.7) Lymphocytes # (Auto) 0.6 x10^3/uL (1.0-4.8) Monocytes # (Auto) 1.1 x10^3/uL (0.0-1.1) Eosinophils # (Auto) 0.0 x10^3/uL (0.0-0.7) Basophils # (Auto) 0.1 x10^3/uL (0.0-0.2) Segmented Neutrophils % 87 % (35-66) Band Neutrophils % 2 % (0-9) Lymphocytes % 4 % (24-48) Monocytes % 6 % (0-10) Basophils % 1 % (0-3) Platelet Estimate Adequate (ADEQUATE) Polychromasia Slight Vitamin B12 Level 281 pg/mL (247-911) Serum Folate 16.29 ng/ml (3.2-20.0) Sodium Level 140 mmol/L (136-145) Potassium Level 4.5 mmol/L (3.5-5.1) Chloride Level 103 mmol/L (98-107) Carbon Dioxide Level 32 mmol/L (21-32) Anion Gap 5 (6-14) Blood Urea Nitrogen 12 mg/dL (7-20) Creatinine 0.9 mg/dL (0.6-1.0) Estimated GFR (Cockcroft-Gault) 60.6 Glucose Level 192 mg/dL (70-99) Calcium Level 8.5 mg/dL (8.5-10.1) Magnesium Level 2.2 mg/dL (1.8-2.4) Total Bilirubin 0.7 mg/dL (0.2-1.0) Direct Bilirubin 0.2 mg/dL (0.0-0.2) Aspartate Amino Transf (AST/SGOT) 9 U/L (15-37) Alanine Aminotransferase (ALT/SGPT) 16 U/L (14-59) Alkaline Phosphatase 77 U/L (46-116) Creatine Kinase 30 U/L (26-192) Creatine Kinase MB (Mass) < 0.5 ng/mL (0.0-3.6) Creatine Kinase MB Relative Index % (0-4) Troponin I Quantitative < 0.017 ng/mL (0.000-0.055) TR-Cqn-E-Type Natriuretic Peptide 3353 pg/mL (0-449) Total Protein 6.0 g/dL (6.4-8.2) Albumin 2.8 g/dL (3.4-5.0) Lipase 109 U/L (73-393) Urine Collection Type Unknown Urine Color Yellow Urine Clarity Turbid Urine pH 6.0 Urine Specific [place] 1.020 Urine Protein 100 mg/dL (NEG-TRACE) Urine Glucose (UA) 500 mg/dL (NEG) Urine Ketones (Stick) Negative mg/dL (NEG) Urine Blood Moderate (NEG) Urine Nitrite Positive (NEG) Urine Bilirubin Negative (NEG) Urine Urobilinogen Dipstick 0.2 mg/dL (0.2 mg/dL) Urine Leukocyte Esterase Large (NEG) Urine RBC Fobs /HPF (0-2) Urine WBC Tntc /HPF (0-4) Urine Squamous Epithelial Cells Many /LPF Urine Bacteria Many /HPF (0-FEW) Urine Mucus Marked /LPF Test 11/16/16 13:50 11/16/16 16:45 11/17/16 03:54 Troponin I Quantitative < 0.017 ng/mL (0.000-0.055) < 0.017 ng/mL (0.000-0.055) White Blood Count 8.4 x10^3/uL (4.0-11.0) Red Blood Count 3.17 x10^6/uL (3.50-5.40) Hemoglobin 10.7 g/dL (12.0-15.5) Hematocrit 31.3 % (36.0-47.0) Mean Corpuscular Volume 99 fL (79-100) Mean Corpuscular Hemoglobin 34 pg (25-35) Mean Corpuscular Hemoglobin Concent 34 g/dL (31-37) Red Cell Distribution Width 14.4 % (11.5-14.5) Platelet Count 260 x10^3/uL (140-400) Neutrophils (%) (Auto) 73 % (31-73) Lymphocytes (%) (Auto) 14 % (24-48) Monocytes (%) (Auto) 11 % (0-9) Eosinophils (%) (Auto) 1 % (0-3) Basophils (%) (Auto) 1 % (0-3) Neutrophils # (Auto) 6.2 x10^3uL (1.8-7.7) Lymphocytes # (Auto) 1.2 x10^3/uL (1.0-4.8) Monocytes # (Auto) 0.9 x10^3/uL (0.0-1.1) Eosinophils # (Auto) 0.1 x10^3/uL (0.0-0.7) Basophils # (Auto) 0.0 x10^3/uL (0.0-0.2) Sodium Level 142 mmol/L (136-145) Potassium Level 3.9 mmol/L (3.5-5.1) Chloride Level 100 mmol/L (98-107) Carbon Dioxide Level 33 mmol/L (21-32) Anion Gap 9 (6-14) Blood Urea Nitrogen 15 mg/dL (7-20) Creatinine 0.9 mg/dL (0.6-1.0) Estimated GFR (Cockcroft-Gault) 60.6 BUN/Creatinine Ratio 17 (6-20) Glucose Level 133 mg/dL (70-99) Calcium Level 8.8 mg/dL (8.5-10.1) Total Bilirubin 0.6 mg/dL (0.2-1.0) Aspartate Amino Transf (AST/SGOT) 15 U/L (15-37) Alanine Aminotransferase (ALT/SGPT) 17 U/L (14-59) Alkaline Phosphatase 79 U/L (46-116) Total Protein 6.4 g/dL (6.4-8.2) Albumin 2.9 g/dL (3.4-5.0) Albumin/Globulin Ratio 0.8 (1.0-1.7) Laboratory Tests Test 11/16/16 13:50 11/16/16 16:45 11/17/16 03:54 Troponin I Quantitative < 0.017 ng/mL (0.000-0.055) < 0.017 ng/mL (0.000-0.055) White Blood Count 8.4 x10^3/uL (4.0-11.0) Red Blood Count 3.17 x10^6/uL (3.50-5.40) Hemoglobin 10.7 g/dL (12.0-15.5) Hematocrit 31.3 % (36.0-47.0) Mean Corpuscular Volume 99 fL (79-100) Mean Corpuscular Hemoglobin 34 pg (25-35) Mean Corpuscular Hemoglobin Concent 34 g/dL (31-37) Red Cell Distribution Width 14.4 % (11.5-14.5) Platelet Count 260 x10^3/uL (140-400) Neutrophils (%) (Auto) 73 % (31-73) Lymphocytes (%) (Auto) 14 % (24-48) Monocytes (%) (Auto) 11 % (0-9) Eosinophils (%) (Auto) 1 % (0-3) Basophils (%) (Auto) 1 % (0-3) Neutrophils # (Auto) 6.2 x10^3uL (1.8-7.7) Lymphocytes # (Auto) 1.2 x10^3/uL (1.0-4.8) Monocytes # (Auto) 0.9 x10^3/uL (0.0-1.1) Eosinophils # (Auto) 0.1 x10^3/uL (0.0-0.7) Basophils # (Auto) 0.0 x10^3/uL (0.0-0.2) Sodium Level 142 mmol/L (136-145) Potassium Level 3.9 mmol/L (3.5-5.1) Chloride Level 100 mmol/L (98-107) Carbon Dioxide Level 33 mmol/L (21-32) Anion Gap 9 (6-14) Blood Urea Nitrogen 15 mg/dL (7-20) Creatinine 0.9 mg/dL (0.6-1.0) Estimated GFR (Cockcroft-Gault) 60.6 BUN/Creatinine Ratio 17 (6-20) Glucose Level 133 mg/dL (70-99) Calcium Level 8.8 mg/dL (8.5-10.1) Total Bilirubin 0.6 mg/dL (0.2-1.0) Aspartate Amino Transf (AST/SGOT) 15 U/L (15-37) Alanine Aminotransferase (ALT/SGPT) 17 U/L (14-59) Alkaline Phosphatase 79 U/L (46-116) Total Protein 6.4 g/dL (6.4-8.2) Albumin 2.9 g/dL (3.4-5.0) Albumin/Globulin Ratio 0.8 (1.0-1.7) Microbiology 11/16/16 Blood Culture - Preliminary, Resulted NO GROWTH AFTER 1 DAY 11/16/16 Urine Culture - Preliminary, Resulted 11/16/16 Urine Culture Result 1 (BISI) - Preliminary, Resulted Medications Current Medications Ondansetron HCl (Zofran) 4 mg PRN Q8HRS PRN IV NAUSEA/VOMITING; Start 11/16/16 at 12:45; Stop 11/17/16 at 12:44; Status DC Fentanyl Citrate (Fentanyl 2ml Vial) 50 mcg PRN Q2HR PRN IV PAIN; Start at 12:45; Stop 11/17/16 at 12:44; Status DC Sodium Chloride 1,000 ml @ 100 mls/hr Q10H IV ; Start 11/16/16 at 12:36; Stop 11/16/16 at 15:29; Status DC Acetaminophen (Tylenol) 650 mg PRN Q4HRS PRN PO FEVER Last administered on 11/16 14:14; Start 11/16/16 at 12:45; Stop 11/17/16 at 12:44; Status DC Albuterol/ Ipratropium (Duoneb) 3 ml RTQID NEB Last administered on 11/17/16 10:58; Start 11/16/16 at 13:00; Stop 11/17/16 at 12:59 Levofloxacin/ Dextrose (Levaquin Per Pharmacy) 1 each PRN DAILY PRN MC SEE COMMENTS; Start 11/16/16 at 12:45 Levofloxacin/ Dextrose 100 ml @ 100 mls/hr Q24H IV Last administered on 12:48; Start 11/16/16 at 13:00 Furosemide (Lasix) 40 mg 1X ONCE IVP Last administered on 11/16/16 14:14; Start 11/16/16 at 13:30; Stop 11/16/16 at 13:31; Status DC Aspirin (Ecotrin) 325 mg BID PO Last administered on 11/17/16 09:23; Start at 21:00 Cetirizine HCl (ZyrTEC) 10 mg PRN DAILY PRN PO ALLERGIES; Start 11/16/16 at 15: 15 Cyclobenzaprine HCl (Flexeril) 10 mg TID PO ; Start 11/16/16 at 16:00; Stop at 16:36; Status DC Diltiazem HCl (Cardizem 24hr Cd) 240 mg HS PO Last administered on 11/16/16 21 :08; Start 11/16/16 at 21:00 Furosemide (Lasix) 20 mg DAILY PO Last administered on 11/17/16 09:23; Start 11/16/16 at 16:00 Acetaminophen/ Hydrocodone Bitart (Lortab 7.5/325) 1 tab PRN Q6HRS PRN PO PAIN Last administered on 11/17/16 05:41; Start 11/16/16 at 15:15 Levothyroxine Sodium (Synthroid) 150 mcg DAILY07 PO Last administered on 05:40; Start 11/16/16 at 16:00 Potassium Chloride (Klor-Con) 20 meq DAILY PO Last administered on 11/17/16 09 :23; Start 11/17/16 at 09:00 Sodium Chloride (Saline Mist Nasal) 1 nara PRN Q6HRS PRN NS nasal dryness; Start 11/16/16 at 15:15 Citalopram Hydrobromide (CeleXA) 20 mg DAILY PO Last administered on 11/17/16 09:23; Start 11/17/16 at 09:00 Non-Formulary Medication 220 mcg BID IH ; Start 11/16/16 at 21:00; Status UNV Glimepiride (Amaryl) 4 mg BIDWMEALS PO Last administered on 11/17/16 09:23; Start 11/16/16 at 17:00 Losartan Potassium (Cozaar) 100 mg DAILY PO Last administered on 11/17/16 09: 23; Start 11/16/16 at 16:00 Atorvastatin Calcium (Lipitor) 80 mg QHS PO Last administered on 11/16/16 21: 08; Start 11/16/16 at 21:00 Budesonide (Pulmicort) 0.5 mg RTBID NEB Last administered on 11/17/16 07:36; Start 11/16/16 at 20:00 Enoxaparin Sodium (Lovenox Per Pharmacy Prophylaxis Dosing) 1 each PRN DAILY PRN MC SEE COMMENTS; Start 11/16/16 at 15:30 Enoxaparin Sodium (Lovenox 40mg Syringe) 40 mg Q12HR SQ Last administered on 09:24; Start 11/16/16 at 21:00 Furosemide (Lasix) 40 mg 1X ONCE IVP Last administered on 11/16/16 21:10; Start 11/16/16 at 22:15; Stop 11/16/16 at 22:16; Status DC Furosemide (Lasix) 40 mg 1X ONCE IVP Last administered on 11/17/16 05:40; Start 11/17/16 at 06:00; Stop 11/17/16 at 06:01; Status DC Active Scripts Active Cyclobenzaprine Hcl 10 Mg Tablet 1 Tab PO TID [place] 5-325 Tablet (Acetaminophen/Hydrocodone Bitart) 1 Each Tablet 1 Tab PO PRN Q6HRS PRN Reported Aspirin 81 Mg Tab.chew 1 Tab PO DAILY Hydrocodone-Apap 7.5-325 (Hydrocodone Bit/Acetaminophen) 1 Each Tablet 1-2 Tab PO PRN Q6HRS PRN Took at 2:30 today may take anytime as needed every 6 hours Synthroid (Levothyroxine Sodium) 150 Mcg Tablet 1 Tab PO DAILY Last dose taken: 12-27-15 at 07am Next dose: 12-28-15 at 07am Amaryl (Glimepiride) 4 Mg Tablet 1 Tab PO BID Last dose taken 12/27/15 at 08:30 am. Next dose: 12/27/15 at 6pm Saline Nasal [place] (Sodium Chloride) 30 Ml [place] 30 Ml NS PRN PRN May resume at home as needed. Lasix (Furosemide) 20 Mg Tablet 1 Tab PO DAILY None taken today may resume in am. Zyrtec (Cetirizine Hcl) 10 Mg Tablet 1 Tab PO PRN PRN Not taken in hosp. May resume at home as directed as needed Albuterol Sulfate Neb Soln (Albuterol Sulfate) 2.5 Mg/3 Ml Vial.neb 1 Vial NEB BID LAST DOSE GIVEN: DATE:12-27-15 TIME:8:00 a.m. NEXT DOSE DUE: DATE:12-27-15 TIME:9:00 p.m. Flovent 110MCG Hfa (Fluticasone Propionate) 12 Gm Aer.w.adap 220 Mcg IH BID LAST DOSE GIVEN: DATE: 12-27-15 TIME: 9:00 a.m. NEXT DOSE DUE: DATE: 12-27-15 TIME: 9:00 p.m. Tylenol Extra Strength (Acetaminophen) 500 Mg Tablet 1,500 Mg PO BID Last dose taken at 0800 am. Take home as directed but do not take with pain medications and do not exceed 4,000mg in 24 hour period. Potassium Chloride 20 Meq Tab.er.prt 1 Tab PO DAILY LAST DOSE GIVEN: DATE: 12-27-15 TIME: 8:30 a.m. NEXT DOSE DUE: DATE: 12-28-15 TIME: 8:30 a.m. Metolazone 5 Mg Tablet 5 Mg PO DAILY LAST DOSE GIVEN: DATE: 12-27-15 TIME: 8:30 a.m. NEXT DOSE DUE: DATE: 12-28-15 TIME: 8:30 a.m. Lexapro (Escitalopram Oxalate) 10 Mg Tablet 10 Mg PO DAILY LAST DOSE GIVEN: DATE: 12-27-15 TIME: 8:30 a.m. NEXT DOSE DUE: DATE: 12-28-15 TIME: 8:30 a.m. Cardizem Cd (Diltiazem Hcl) 240 Mg Cap.er.24h 240 Mg PO HS LAST DOSE GIVEN: DATE: 12-26-15 TIME: 9:00 p.m. NEXT DOSE DUE: DATE: 12-27-15 TIME: 9:00 p.m. Losartan Potassium 100 Mg Tablet 100 Mg PO DAILY None taken today resume in am. Crestor (Rosuvastatin Calcium) 40 Mg Tablet 40 Mg PO QHS LAST DOSE GIVEN: DATE: 12-26-15 TIME: 9:00 p.m. NEXT DOSE DUE: DATE: 12-27-15 TIME: 9:00 p.m. Vitals/I & O Vital Sign - Last 24 Hours 11/16/16 11/16/16 11/16/16 11/16/16 13:01 13:32 13:45 15:00 Temp 100.6 100.5 100.6 100.5 Pulse 98 113 93 94 Resp 18 18 24 22 B/P (MAP) 128/61 (83) 136/82 (100) 112/53 (72) 114/54 (74) Pulse Ox 98 94 91 92 O2 Delivery Nasal Cannula Nasal Cannula Nasal Cannula Nasal Cannula O2 Flow Rate 3.0 3.0 2.0 2.0 11/16/16 11/16/16 11/16/16 11/16/16 15:36 15:43 19:23 19:23 Pulse Ox 97 94 94 O2 Delivery Nasal Cannula Nasal Cannula Nasal Cannula Nasal Cannula O2 Flow Rate 2.0 2.0 2.0 2.0 11/16/16 11/16/16 11/16/16 11/16/16 19:50 20:00 21:08 22:20 Temp 98.6 99.3 98.6 99.3 Pulse 92 92 103 Resp 20 22 B/P (MAP) 117/81 (93) 117/81 119/69 (86) Pulse Ox 95 94 O2 Delivery Nasal Cannula Nasal Cannula Nasal Cannula O2 Flow Rate 2.0 2.0 2.0 11/16/16 11/17/16 11/17/16 11/17/16 23:27 03:45 05:41 07:00 Temp 98.0 98.0 98.0 98.0 Pulse 65 109 Resp 20 20 B/P (MAP) 116/75 (89) 118/56 (76) Pulse Ox 96 95 O2 Delivery Nasal Cannula Nasal Cannula Nasal Cannula Nasal Cannula O2 Flow Rate 2.0 2.0 2.0 2.0 11/17/16 11/17/16 11/17/16 11/17/16 07:36 07:38 08:00 09:23 Pulse 109 B/P (MAP) 118/56 Pulse Ox 84 84 O2 Delivery Room Air Room Air Nasal Cannula O2 Flow Rate 2.0 11/17/16 11/17/16 11/17/16 10:32 10:54 10:59 Temp 98.4 98.4 Pulse 77 Resp 21 B/P (MAP) 102/64 (77) Pulse Ox 96 O2 Delivery Room Air Nasal Cannula Nasal Cannula O2 Flow Rate 2.0 2.0 Intake and Output 11/17/16 11/17/16 11/18/16 15:00 23:00 07:00 Intake Total 360 ml Output Total 1000 ml Balance -640 ml MARIBEL GUTIERRES MD Nov 17, 2016 13:02
[2016-11-17] MEDS ORDERED: FLU VACC QS2017-18 (36MOS+)/PF 0.5 ML SYRINGE. VAX IM ONE (13:15)
[2016-11-17 15:24] VITALS: BP 109/54
--- NOTE | 2016-11-17 15:38 | PDOC ---
PULMONARY PROGRESS NOTES Subjective PT FEELS BETTER LESS SOA Vitals Vital Signs Date Time Temp Pulse Resp B/P (MAP) Pulse Ox O2 Delivery O2 Flow Rate FiO2 11/17/16 15:24 98.6 70 20 109/54 (72) 94 Nasal Cannula 2.0 98.6 ROS: No Nausea, No Chest Pain, No Abdominal Pain, No Increase Cough General: Alert Lungs: Clear Cardiovascular: S1, S2 Abdomen: Soft Neuro Exam: Alert Extremities: No Edema Skin: Warm Labs Laboratory Tests Test 11/16/16 10:20 11/16/16 10:25 11/16/16 11:25 11/16/16 11:58 Lactic Acid Level 1.4 mmol/L (0.4-2.0) White Blood Count 12.4 x10^3/uL (4.0-11.0) Red Blood Count 2.93 x10^6/uL (3.50-5.40) Hemoglobin 9.7 g/dL (12.0-15.5) Hematocrit 29.2 % (36.0-47.0) Mean Corpuscular Volume 100 fL (79-100) Mean Corpuscular Hemoglobin 33 pg (25-35) Mean Corpuscular Hemoglobin Concent 33 g/dL (31-37) Red Cell Distribution Width 14.2 % (11.5-14.5) Platelet Count 240 x10^3/uL (140-400) Neutrophils (%) (Auto) 86 % (31-73) Lymphocytes (%) (Auto) 5 % (24-48) Monocytes (%) (Auto) 9 % (0-9) Eosinophils (%) (Auto) 0 % (0-3) Basophils (%) (Auto) 0 % (0-3) Neutrophils # (Auto) 10.6 x10^3uL (1.8-7.7) Lymphocytes # (Auto) 0.6 x10^3/uL (1.0-4.8) Monocytes # (Auto) 1.1 x10^3/uL (0.0-1.1) Eosinophils # (Auto) 0.0 x10^3/uL (0.0-0.7) Basophils # (Auto) 0.1 x10^3/uL (0.0-0.2) Segmented Neutrophils % 87 % (35-66) Band Neutrophils % 2 % (0-9) Lymphocytes % 4 % (24-48) Monocytes % 6 % (0-10) Basophils % 1 % (0-3) Platelet Estimate Adequate (ADEQUATE) Polychromasia Slight Vitamin B12 Level 281 pg/mL (247-911) Serum Folate 16.29 ng/ml (3.2-20.0) Sodium Level 140 mmol/L (136-145) Potassium Level 4.5 mmol/L (3.5-5.1) Chloride Level 103 mmol/L (98-107) Carbon Dioxide Level 32 mmol/L (21-32) Anion Gap 5 (6-14) Blood Urea Nitrogen 12 mg/dL (7-20) Creatinine 0.9 mg/dL (0.6-1.0) Estimated GFR (Cockcroft-Gault) 60.6 Glucose Level 192 mg/dL (70-99) Calcium Level 8.5 mg/dL (8.5-10.1) Magnesium Level 2.2 mg/dL (1.8-2.4) Total Bilirubin 0.7 mg/dL (0.2-1.0) Direct Bilirubin 0.2 mg/dL (0.0-0.2) Aspartate Amino Transf (AST/SGOT) 9 U/L (15-37) Alanine Aminotransferase (ALT/SGPT) 16 U/L (14-59) Alkaline Phosphatase 77 U/L (46-116) Creatine Kinase 30 U/L (26-192) Creatine Kinase MB (Mass) < 0.5 ng/mL (0.0-3.6) Creatine Kinase MB Relative Index % (0-4) Troponin I Quantitative < 0.017 ng/mL (0.000-0.055) RB-Flt-X-Type Natriuretic Peptide 3353 pg/mL (0-449) Total Protein 6.0 g/dL (6.4-8.2) Albumin 2.8 g/dL (3.4-5.0) Lipase 109 U/L (73-393) Urine Collection Type Unknown Urine Color Yellow Urine Clarity Turbid Urine pH 6.0 Urine Specific [place] 1.020 Urine Protein 100 mg/dL (NEG-TRACE) Urine Glucose (UA) 500 mg/dL (NEG) Urine Ketones (Stick) Negative mg/dL (NEG) Urine Blood Moderate (NEG) Urine Nitrite Positive (NEG) Urine Bilirubin Negative (NEG) Urine Urobilinogen Dipstick 0.2 mg/dL (0.2 mg/dL) Urine Leukocyte Esterase Large (NEG) Urine RBC Fobs /HPF (0-2) Urine WBC Tntc /HPF (0-4) Urine Squamous Epithelial Cells Many /LPF Urine Bacteria Many /HPF (0-FEW) Urine Mucus Marked /LPF Test 11/16/16 13:50 11/16/16 16:45 11/17/16 03:54 Troponin I Quantitative < 0.017 ng/mL (0.000-0.055) < 0.017 ng/mL (0.000-0.055) White Blood Count 8.4 x10^3/uL (4.0-11.0) Red Blood Count 3.17 x10^6/uL (3.50-5.40) Hemoglobin 10.7 g/dL (12.0-15.5) Hematocrit 31.3 % (36.0-47.0) Mean Corpuscular Volume 99 fL (79-100) Mean Corpuscular Hemoglobin 34 pg (25-35) Mean Corpuscular Hemoglobin Concent 34 g/dL (31-37) Red Cell Distribution Width 14.4 % (11.5-14.5) Platelet Count 260 x10^3/uL (140-400) Neutrophils (%) (Auto) 73 % (31-73) Lymphocytes (%) (Auto) 14 % (24-48) Monocytes (%) (Auto) 11 % (0-9) Eosinophils (%) (Auto) 1 % (0-3) Basophils (%) (Auto) 1 % (0-3) Neutrophils # (Auto) 6.2 x10^3uL (1.8-7.7) Lymphocytes # (Auto) 1.2 x10^3/uL (1.0-4.8) Monocytes # (Auto) 0.9 x10^3/uL (0.0-1.1) Eosinophils # (Auto) 0.1 x10^3/uL (0.0-0.7) Basophils # (Auto) 0.0 x10^3/uL (0.0-0.2) Sodium Level 142 mmol/L (136-145) Potassium Level 3.9 mmol/L (3.5-5.1) Chloride Level 100 mmol/L (98-107) Carbon Dioxide Level 33 mmol/L (21-32) Anion Gap 9 (6-14) Blood Urea Nitrogen 15 mg/dL (7-20) Creatinine 0.9 mg/dL (0.6-1.0) Estimated GFR (Cockcroft-Gault) 60.6 BUN/Creatinine Ratio 17 (6-20) Glucose Level 133 mg/dL (70-99) Calcium Level 8.8 mg/dL (8.5-10.1) Total Bilirubin 0.6 mg/dL (0.2-1.0) Aspartate Amino Transf (AST/SGOT) 15 U/L (15-37) Alanine Aminotransferase (ALT/SGPT) 17 U/L (14-59) Alkaline Phosphatase 79 U/L (46-116) Total Protein 6.4 g/dL (6.4-8.2) Albumin 2.9 g/dL (3.4-5.0) Albumin/Globulin Ratio 0.8 (1.0-1.7) Laboratory Tests Test 11/16/16 16:45 11/17/16 03:54 Troponin I Quantitative < 0.017 ng/mL (0.000-0.055) White Blood Count 8.4 x10^3/uL (4.0-11.0) Red Blood Count 3.17 x10^6/uL (3.50-5.40) Hemoglobin 10.7 g/dL (12.0-15.5) Hematocrit 31.3 % (36.0-47.0) Mean Corpuscular Volume 99 fL (79-100) Mean Corpuscular Hemoglobin 34 pg (25-35) Mean Corpuscular Hemoglobin Concent 34 g/dL (31-37) Red Cell Distribution Width 14.4 % (11.5-14.5) Platelet Count 260 x10^3/uL (140-400) Neutrophils (%) (Auto) 73 % (31-73) Lymphocytes (%) (Auto) 14 % (24-48) Monocytes (%) (Auto) 11 % (0-9) Eosinophils (%) (Auto) 1 % (0-3) Basophils (%) (Auto) 1 % (0-3) Neutrophils # (Auto) 6.2 x10^3uL (1.8-7.7) Lymphocytes # (Auto) 1.2 x10^3/uL (1.0-4.8) Monocytes # (Auto) 0.9 x10^3/uL (0.0-1.1) Eosinophils # (Auto) 0.1 x10^3/uL (0.0-0.7) Basophils # (Auto) 0.0 x10^3/uL (0.0-0.2) Sodium Level 142 mmol/L (136-145) Potassium Level 3.9 mmol/L (3.5-5.1) Chloride Level 100 mmol/L (98-107) Carbon Dioxide Level 33 mmol/L (21-32) Anion Gap 9 (6-14) Blood Urea Nitrogen 15 mg/dL (7-20) Creatinine 0.9 mg/dL (0.6-1.0) Estimated GFR (Cockcroft-Gault) 60.6 BUN/Creatinine Ratio 17 (6-20) Glucose Level 133 mg/dL (70-99) Calcium Level 8.8 mg/dL (8.5-10.1) Total Bilirubin 0.6 mg/dL (0.2-1.0) Aspartate Amino Transf (AST/SGOT) 15 U/L (15-37) Alanine Aminotransferase (ALT/SGPT) 17 U/L (14-59) Alkaline Phosphatase 79 U/L (46-116) Total Protein 6.4 g/dL (6.4-8.2) Albumin 2.9 g/dL (3.4-5.0) Albumin/Globulin Ratio 0.8 (1.0-1.7) Medications Active Scripts Medications Dose Route/Sig Max Daily Dose Days Date Category Dose Instructions Cyclobenzaprine Hcl 10 Mg Tablet 1 Tab PO TID 10/07/16 Rx [place] 5-325 Tablet (Acetaminophen/Hydrocodone Bitart) 1 Each Tablet 1 Tab PO PRN Q6HRS PRN 10/07/16 Rx Aspirin Ec (Aspirin) 325 Mg Tablet. 1 Tab PO BID 12/26/15 Reported Last dose: 12-27-15 at 08 am. Next dose: 12-27-15 at 9 pm tonight. Hydrocodone-Apap 7.5-325 (Hydrocodone Bit/Acetaminophen) 1 Each Tablet 1-2 Tab PO PRN Q6HRS PRN 12/26/15 Reported Took at 2:30 today may take anytime as needed every 6 hours Synthroid (Levothyroxine Sodium) 150 Mcg Tablet 1 Tab PO DAILY 12/16/15 Reported Last dose taken: 12-27-15 at 07am Next dose: 12-28-15 at 07am Amaryl (Glimepiride) 4 Mg Tablet 1 Tab PO BID 12/16/15 Reported Last dose taken 12/27/15 at 08:30 am. Next dose: 12/27/15 at 6pm Saline Nasal [place] (Sodium Chloride) 30 Ml [place] 30 Ml NS PRN PRN 07/18/15 Reported May resume at home as needed. Lasix (Furosemide) 20 Mg Tablet 1 Tab PO DAILY 07/18/15 Reported None taken today may resume in am. Zyrtec (Cetirizine Hcl) 10 Mg Tablet 1 Tab PO PRN PRN 07/18/15 Reported Not taken in hosp. May resume at home as directed as needed Albuterol Sulfate Neb Soln (Albuterol Sulfate) 2.5 Mg/3 Ml Vial.neb 1 Vial NEB BID 07/18/15 Reported LAST DOSE GIVEN: DATE:12-27-15 TIME:8:00 a.m. NEXT DOSE DUE: DATE:12-27-15 TIME:9:00 p.m. Flovent 110MCG Hfa (Fluticasone Propionate) 12 Gm Aer.w.adap 220 Mcg IH BID 07/18/15 Reported LAST DOSE GIVEN: DATE: 12-27-15 TIME: 9:00 a.m. NEXT DOSE DUE: DATE: 12-27-15 TIME: 9:00 p.m. Tylenol Extra Strength (Acetaminophen) 500 Mg Tablet 1,500 Mg PO BID 04/17/15 Reported Last dose taken at 0800 am. Take home as directed but do not take with pain medications and do not exceed 4,000mg in 24 hour period. Potassium Chloride 20 Meq Tab.er.prt 1 Tab PO DAILY 04/17/15 Reported LAST DOSE GIVEN: DATE: 12-27-15 TIME: 8:30 a.m. NEXT DOSE DUE: DATE: 12-28-15 TIME: 8:30 a.m. Metolazone 5 Mg Tablet 5 Mg PO DAILY 04/16/15 Reported LAST DOSE GIVEN: DATE: 12-27-15 TIME: 8:30 a.m. NEXT DOSE DUE: DATE: 12-28-15 TIME: 8:30 a.m. Lexapro (Escitalopram Oxalate) 10 Mg Tablet 10 Mg PO DAILY 05/01/13 Reported LAST DOSE GIVEN: DATE: 12-27-15 TIME: 8:30 a.m. NEXT DOSE DUE: DATE: 12-28-15 TIME: 8:30 a.m. Cardizem Cd (Diltiazem Hcl) 240 Mg Cap.er.24h 240 Mg PO HS 05/01/13 Reported LAST DOSE GIVEN: DATE: 12-26-15 TIME: 9:00 p.m. NEXT DOSE DUE: DATE: 12-27-15 TIME: 9:00 p.m. Losartan Potassium 100 Mg Tablet 100 Mg PO DAILY 05/01/13 Reported None taken today resume in am. Crestor (Rosuvastatin Calcium) 40 Mg Tablet 40 Mg PO QHS 05/01/13 Reported LAST DOSE GIVEN: DATE: 12-26-15 TIME: 9:00 p.m. NEXT DOSE DUE: DATE: 12-27-15 TIME: 9:00 p.m. Impression . 1. Acute respiratory distress secondary to acute mild congestive heart failure along with acute exacerbation of chronic obstructive pulmonary disease. 2. Abnormal x-ray compatible with mild interstitial infiltrates. 3. Secondary pulmonary hypertension on previous echocardiogram in April 2016 revealed a pulmonary artery pressure of 48. 4. Clinical symptoms and signs of obstructive sleep apnea, the patient does not wish to proceed with a sleep study. She is unable to tolerate CPAP secondary to claustrophobia. 5. Systemic hypertension. 6. Secondary pulmonary hypertension. 7. Positive urinary tract infection. 8. Severe protein malnutrition. Plan . PT IMPROVING HOME SOON OK BY ME FOLLOW UP IN MY OFFICE TAPER PRED 02 HARLEEN MENDOZA MD Nov 17, 2016 15:38
--- NOTE | 2016-11-17 18:03 | PDOC ---
PROGRESS NOTES Subjective Subjective And feels much better today. She is not complaining of dyspnea. Objective Objective Vital Signs Date Time Temp Pulse Resp B/P (MAP) Pulse Ox O2 Delivery O2 Flow Rate FiO2 11/17/16 17:52 Room Air 11/17/16 15:38 2.0 11/17/16 15:24 98.6 70 20 109/54 (72) 94 98.6 Intake and Output 11/18/16 07:00 Intake Total 360 ml Output Total 1750 ml Balance -1390 ml Intake Oral 360 ml Output Urine Total 1750 ml Physical Exam Physical Exam Moving air better, no Rales, no wheezing Extremities with a lot less edema Assessment Assessment Patient CHF is significantly improved. She may go home in a.m. from a cardiac standpoint. Problems Medical Problems: (1) Congestive heart failure (CHF) Status: Acute (2) COPD (chronic obstructive pulmonary disease) Status: Acute (3) Moderate protein malnutrition Status: Acute (4) Urinary tract infection Status: Acute Comment Review of Relevant I have reviewed the following items donald (where applicable) has been applied. Labs Laboratory Tests Test 11/16/16 10:20 11/16/16 10:25 11/16/16 11:25 11/16/16 11:58 Lactic Acid Level 1.4 mmol/L (0.4-2.0) White Blood Count 12.4 x10^3/uL (4.0-11.0) Red Blood Count 2.93 x10^6/uL (3.50-5.40) Hemoglobin 9.7 g/dL (12.0-15.5) Hematocrit 29.2 % (36.0-47.0) Mean Corpuscular Volume 100 fL (79-100) Mean Corpuscular Hemoglobin 33 pg (25-35) Mean Corpuscular Hemoglobin Concent 33 g/dL (31-37) Red Cell Distribution Width 14.2 % (11.5-14.5) Platelet Count 240 x10^3/uL (140-400) Neutrophils (%) (Auto) 86 % (31-73) Lymphocytes (%) (Auto) 5 % (24-48) Monocytes (%) (Auto) 9 % (0-9) Eosinophils (%) (Auto) 0 % (0-3) Basophils (%) (Auto) 0 % (0-3) Neutrophils # (Auto) 10.6 x10^3uL (1.8-7.7) Lymphocytes # (Auto) 0.6 x10^3/uL (1.0-4.8) Monocytes # (Auto) 1.1 x10^3/uL (0.0-1.1) Eosinophils # (Auto) 0.0 x10^3/uL (0.0-0.7) Basophils # (Auto) 0.1 x10^3/uL (0.0-0.2) Segmented Neutrophils % 87 % (35-66) Band Neutrophils % 2 % (0-9) Lymphocytes % 4 % (24-48) Monocytes % 6 % (0-10) Basophils % 1 % (0-3) Platelet Estimate Adequate (ADEQUATE) Polychromasia Slight Vitamin B12 Level 281 pg/mL (247-911) Serum Folate 16.29 ng/ml (3.2-20.0) Sodium Level 140 mmol/L (136-145) Potassium Level 4.5 mmol/L (3.5-5.1) Chloride Level 103 mmol/L (98-107) Carbon Dioxide Level 32 mmol/L (21-32) Anion Gap 5 (6-14) Blood Urea Nitrogen 12 mg/dL (7-20) Creatinine 0.9 mg/dL (0.6-1.0) Estimated GFR (Cockcroft-Gault) 60.6 Glucose Level 192 mg/dL (70-99) Calcium Level 8.5 mg/dL (8.5-10.1) Magnesium Level 2.2 mg/dL (1.8-2.4) Total Bilirubin 0.7 mg/dL (0.2-1.0) Direct Bilirubin 0.2 mg/dL (0.0-0.2) Aspartate Amino Transf (AST/SGOT) 9 U/L (15-37) Alanine Aminotransferase (ALT/SGPT) 16 U/L (14-59) Alkaline Phosphatase 77 U/L (46-116) Creatine Kinase 30 U/L (26-192) Creatine Kinase MB (Mass) < 0.5 ng/mL (0.0-3.6) Creatine Kinase MB Relative Index % (0-4) Troponin I Quantitative < 0.017 ng/mL (0.000-0.055) AE-Lyq-Y-Type Natriuretic Peptide 3353 pg/mL (0-449) Total Protein 6.0 g/dL (6.4-8.2) Albumin 2.8 g/dL (3.4-5.0) Lipase 109 U/L (73-393) Urine Collection Type Unknown Urine Color Yellow Urine Clarity Turbid Urine pH 6.0 Urine Specific [place] 1.020 Urine Protein 100 mg/dL (NEG-TRACE) Urine Glucose (UA) 500 mg/dL (NEG) Urine Ketones (Stick) Negative mg/dL (NEG) Urine Blood Moderate (NEG) Urine Nitrite Positive (NEG) Urine Bilirubin Negative (NEG) Urine Urobilinogen Dipstick 0.2 mg/dL (0.2 mg/dL) Urine Leukocyte Esterase Large (NEG) Urine RBC Fobs /HPF (0-2) Urine WBC Tntc /HPF (0-4) Urine Squamous Epithelial Cells Many /LPF Urine Bacteria Many /HPF (0-FEW) Urine Mucus Marked /LPF Test 11/16/16 13:50 11/16/16 16:45 11/17/16 03:54 Troponin I Quantitative < 0.017 ng/mL (0.000-0.055) < 0.017 ng/mL (0.000-0.055) White Blood Count 8.4 x10^3/uL (4.0-11.0) Red Blood Count 3.17 x10^6/uL (3.50-5.40) Hemoglobin 10.7 g/dL (12.0-15.5) Hematocrit 31.3 % (36.0-47.0) Mean Corpuscular Volume 99 fL (79-100) Mean Corpuscular Hemoglobin 34 pg (25-35) Mean Corpuscular Hemoglobin Concent 34 g/dL (31-37) Red Cell Distribution Width 14.4 % (11.5-14.5) Platelet Count 260 x10^3/uL (140-400) Neutrophils (%) (Auto) 73 % (31-73) Lymphocytes (%) (Auto) 14 % (24-48) Monocytes (%) (Auto) 11 % (0-9) Eosinophils (%) (Auto) 1 % (0-3) Basophils (%) (Auto) 1 % (0-3) Neutrophils # (Auto) 6.2 x10^3uL (1.8-7.7) Lymphocytes # (Auto) 1.2 x10^3/uL (1.0-4.8) Monocytes # (Auto) 0.9 x10^3/uL (0.0-1.1) Eosinophils # (Auto) 0.1 x10^3/uL (0.0-0.7) Basophils # (Auto) 0.0 x10^3/uL (0.0-0.2) Sodium Level 142 mmol/L (136-145) Potassium Level 3.9 mmol/L (3.5-5.1) Chloride Level 100 mmol/L (98-107) Carbon Dioxide Level 33 mmol/L (21-32) Anion Gap 9 (6-14) Blood Urea Nitrogen 15 mg/dL (7-20) Creatinine 0.9 mg/dL (0.6-1.0) Estimated GFR (Cockcroft-Gault) 60.6 BUN/Creatinine Ratio 17 (6-20) Glucose Level 133 mg/dL (70-99) Calcium Level 8.8 mg/dL (8.5-10.1) Total Bilirubin 0.6 mg/dL (0.2-1.0) Aspartate Amino Transf (AST/SGOT) 15 U/L (15-37) Alanine Aminotransferase (ALT/SGPT) 17 U/L (14-59) Alkaline Phosphatase 79 U/L (46-116) Total Protein 6.4 g/dL (6.4-8.2) Albumin 2.9 g/dL (3.4-5.0) Albumin/Globulin Ratio 0.8 (1.0-1.7) Laboratory Tests Test 11/17/16 03:54 White Blood Count 8.4 x10^3/uL (4.0-11.0) Red Blood Count 3.17 x10^6/uL (3.50-5.40) Hemoglobin 10.7 g/dL (12.0-15.5) Hematocrit 31.3 % (36.0-47.0) Mean Corpuscular Volume 99 fL (79-100) Mean Corpuscular Hemoglobin 34 pg (25-35) Mean Corpuscular Hemoglobin Concent 34 g/dL (31-37) Red Cell Distribution Width 14.4 % (11.5-14.5) Platelet Count 260 x10^3/uL (140-400) Neutrophils (%) (Auto) 73 % (31-73) Lymphocytes (%) (Auto) 14 % (24-48) Monocytes (%) (Auto) 11 % (0-9) Eosinophils (%) (Auto) 1 % (0-3) Basophils (%) (Auto) 1 % (0-3) Neutrophils # (Auto) 6.2 x10^3uL (1.8-7.7) Lymphocytes # (Auto) 1.2 x10^3/uL (1.0-4.8) Monocytes # (Auto) 0.9 x10^3/uL (0.0-1.1) Eosinophils # (Auto) 0.1 x10^3/uL (0.0-0.7) Basophils # (Auto) 0.0 x10^3/uL (0.0-0.2) Sodium Level 142 mmol/L (136-145) Potassium Level 3.9 mmol/L (3.5-5.1) Chloride Level 100 mmol/L (98-107) Carbon Dioxide Level 33 mmol/L (21-32) Anion Gap 9 (6-14) Blood Urea Nitrogen 15 mg/dL (7-20) Creatinine 0.9 mg/dL (0.6-1.0) Estimated GFR (Cockcroft-Gault) 60.6 BUN/Creatinine Ratio 17 (6-20) Glucose Level 133 mg/dL (70-99) Calcium Level 8.8 mg/dL (8.5-10.1) Total Bilirubin 0.6 mg/dL (0.2-1.0) Aspartate Amino Transf (AST/SGOT) 15 U/L (15-37) Alanine Aminotransferase (ALT/SGPT) 17 U/L (14-59) Alkaline Phosphatase 79 U/L (46-116) Total Protein 6.4 g/dL (6.4-8.2) Albumin 2.9 g/dL (3.4-5.0) Albumin/Globulin Ratio 0.8 (1.0-1.7) Microbiology 11/16/16 Blood Culture - Preliminary, Resulted NO GROWTH AFTER 1 DAY 11/16/16 Urine Culture - Preliminary, Resulted 11/16/16 Urine Culture Result 1 (BISI) - Preliminary, Resulted Medications Current Medications Ondansetron HCl (Zofran) 4 mg PRN Q8HRS PRN IV NAUSEA/VOMITING; Start 11/16/16 at 12:45; Stop 11/17/16 at 12:44; Status DC Fentanyl Citrate (Fentanyl 2ml Vial) 50 mcg PRN Q2HR PRN IV PAIN; Start at 12:45; Stop 11/17/16 at 12:44; Status DC Sodium Chloride 1,000 ml @ 100 mls/hr Q10H IV ; Start 11/16/16 at 12:36; Stop 11/16/16 at 15:29; Status DC Acetaminophen (Tylenol) 650 mg PRN Q4HRS PRN PO FEVER Last administered on 11/16 14:14; Start 11/16/16 at 12:45; Stop 11/17/16 at 12:44; Status DC Albuterol/ Ipratropium (Duoneb) 3 ml RTQID NEB Last administered on 11/17/16 10:58; Start 11/16/16 at 13:00; Stop 11/17/16 at 12:59; Status DC Levofloxacin/ Dextrose (Levaquin Per Pharmacy) 1 each PRN DAILY PRN MC SEE COMMENTS; Start 11/16/16 at 12:45; Stop 11/17/16 at 14:28; Status DC Levofloxacin/ Dextrose 100 ml @ 100 mls/hr Q24H IV Last administered on 12:48; Start 11/16/16 at 13:00 Furosemide (Lasix) 40 mg 1X ONCE IVP Last administered on 11/16/16 14:14; Start 11/16/16 at 13:30; Stop 11/16/16 at 13:31; Status DC Aspirin (Ecotrin) 325 mg BID PO Last administered on 11/17/16 09:23; Start at 21:00 Cetirizine HCl (ZyrTEC) 10 mg PRN DAILY PRN PO ALLERGIES; Start 11/16/16 at 15: 15 Cyclobenzaprine HCl (Flexeril) 10 mg TID PO ; Start 11/16/16 at 16:00; Stop at 16:36; Status DC Diltiazem HCl (Cardizem 24hr Cd) 240 mg HS PO Last administered on 11/16/16 21 :08; Start 11/16/16 at 21:00 Furosemide (Lasix) 20 mg DAILY PO Last administered on 11/17/16 09:23; Start 11/16/16 at 16:00 Acetaminophen/ Hydrocodone Bitart (Lortab 7.5/325) 1 tab PRN Q6HRS PRN PO PAIN Last administered on 11/17/16 14:27; Start 11/16/16 at 15:15 Levothyroxine Sodium (Synthroid) 150 mcg DAILY07 PO Last administered on 05:40; Start 11/16/16 at 16:00 Potassium Chloride (Klor-Con) 20 meq DAILY PO Last administered on 11/17/16 09 :23; Start 11/17/16 at 09:00 Sodium Chloride (Saline Mist Nasal) 1 nara PRN Q6HRS PRN NS nasal dryness; Start 11/16/16 at 15:15 Citalopram Hydrobromide (CeleXA) 20 mg DAILY PO Last administered on 11/17/16 09:23; Start 11/17/16 at 09:00 Non-Formulary Medication 220 mcg BID IH ; Start 11/16/16 at 21:00; Status UNV Glimepiride (Amaryl) 4 mg BIDWMEALS PO Last administered on 11/17/16 17:24; Start 11/16/16 at 17:00 Losartan Potassium (Cozaar) 100 mg DAILY PO Last administered on 11/17/16 09: 23; Start 11/16/16 at 16:00 Atorvastatin Calcium (Lipitor) 80 mg QHS PO Last administered on 11/16/16 21: 08; Start 11/16/16 at 21:00 Budesonide (Pulmicort) 0.5 mg RTBID NEB Last administered on 11/17/16 07:36; Start 11/16/16 at 20:00; Stop 11/17/16 at 16:08; Status DC Enoxaparin Sodium (Lovenox Per Pharmacy Prophylaxis Dosing) 1 each PRN DAILY PRN [facility] SEE COMMENTS; Start 11/16/16 at 15:30; Stop 11/17/16 at 14:28; Status DC Enoxaparin Sodium (Lovenox 40mg Syringe) 40 mg Q12HR SQ Last administered on 09:24; Start 11/16/16 at 21:00; Stop 11/17/16 at 14:26; Status DC Furosemide (Lasix) 40 mg 1X ONCE IVP Last administered on 11/16/16 21:10; Start 11/16/16 at 22:15; Stop 11/16/16 at 22:16; Status DC Furosemide (Lasix) 40 mg 1X ONCE IVP Last administered on 11/17/16 05:40; Start 11/17/16 at 06:00; Stop 11/17/16 at 06:01; Status DC Influenza Virus Vaccine Quadrival (Fluarix Quad [id number] Syringe) 0.5 ml ONCE ONCE VAX IM Last administered on 11/17/16 17:27; Start 11/17/16 at 13:15; Stop 11/17/16 at 13:19; Status DC Enoxaparin Sodium (Lovenox 40mg Syringe) 40 mg DAILY SQ ; Start 11/18/16 at 09: 00 Budesonide (Pulmicort) 0.5 mg RTBID NEB ; Start 11/17/16 at 20:00 Albuterol/ Ipratropium (Duoneb) 3 ml RTQID NEB ; Start 11/17/16 at 20:00 Active Scripts Active Cyclobenzaprine Hcl 10 Mg Tablet 1 Tab PO TID [place] 5-325 Tablet (Acetaminophen/Hydrocodone Bitart) 1 Each Tablet 1 Tab PO PRN Q6HRS PRN Reported Aspirin 81 Mg Tab.chew 1 Tab PO DAILY Hydrocodone-Apap 7.5-325 (Hydrocodone Bit/Acetaminophen) 1 Each Tablet 1-2 Tab PO PRN Q6HRS PRN Took at 2:30 today may take anytime as needed every 6 hours Synthroid (Levothyroxine Sodium) 150 Mcg Tablet 1 Tab PO DAILY Last dose taken: 12-27-15 at 07am Next dose: 12-28-15 at 07am Amaryl (Glimepiride) 4 Mg Tablet 1 Tab PO BID Last dose taken 12/27/15 at 08:30 am. Next dose: 12/27/15 at 6pm Saline Nasal Elizabeth (Sodium Chloride) 30 Ml Elizabeth 30 Ml NS PRN PRN May resume at home as needed. Lasix (Furosemide) 20 Mg Tablet 1 Tab PO DAILY None taken today may resume in am. Zyrtec (Cetirizine Hcl) 10 Mg Tablet 1 Tab PO PRN PRN Not taken in hosp. May resume at home as directed as needed Albuterol Sulfate Neb Soln (Albuterol Sulfate) 2.5 Mg/3 Ml Vial.neb 1 Vial NEB BID LAST DOSE GIVEN: DATE:12-27-15 TIME:8:00 a.m. NEXT DOSE DUE: DATE:12-27-15 TIME:9:00 p.m. Flovent 110MCG Hfa (Fluticasone Propionate) 12 Gm Aer.w.adap 220 Mcg IH BID LAST DOSE GIVEN: DATE: 12-27-15 TIME: 9:00 a.m. NEXT DOSE DUE: DATE: 12-27-15 TIME: 9:00 p.m. Tylenol Extra Strength (Acetaminophen) 500 Mg Tablet 1,500 Mg PO BID Last dose taken at 0800 am. Take home as directed but do not take with pain medications and do not exceed 4,000mg in 24 hour period. Potassium Chloride 20 Meq Tab.er.prt 1 Tab PO DAILY LAST DOSE GIVEN: DATE: 12-27-15 TIME: 8:30 a.m. NEXT DOSE DUE: DATE: 12-28-15 TIME: 8:30 a.m. Metolazone 5 Mg Tablet 5 Mg PO DAILY LAST DOSE GIVEN: DATE: 12-27-15 TIME: 8:30 a.m. NEXT DOSE DUE: DATE: 12-28-15 TIME: 8:30 a.m. Lexapro (Escitalopram Oxalate) 10 Mg Tablet 10 Mg PO DAILY LAST DOSE GIVEN: DATE: 12-27-15 TIME: 8:30 a.m. NEXT DOSE DUE: DATE: 12-28-15 TIME: 8:30 a.m. Cardizem Cd (Diltiazem Hcl) 240 Mg Cap.er.24h 240 Mg PO HS LAST DOSE GIVEN: DATE: 12-26-15 TIME: 9:00 p.m. NEXT DOSE DUE: DATE: 12-27-15 TIME: 9:00 p.m. Losartan Potassium 100 Mg Tablet 100 Mg PO DAILY None taken today resume in am. Crestor (Rosuvastatin Calcium) 40 Mg Tablet 40 Mg PO QHS LAST DOSE GIVEN: DATE: 12-26-15 TIME: 9:00 p.m. NEXT DOSE DUE: DATE: 12-27-15 TIME: 9:00 p.m. Vitals/I & O Vital Sign - Last 24 Hours 11/16/16 11/16/16 11/16/16 11/16/16 19:23 19:23 19:50 20:00 Temp 98.6 98.6 Pulse 92 Resp 20 B/P (MAP) 117/81 (93) Pulse Ox 94 94 95 O2 Delivery Nasal Cannula Nasal Cannula Nasal Cannula Nasal Cannula O2 Flow Rate 2.0 2.0 2.0 2.0 11/16/16 11/16/16 11/16/16 11/17/16 21:08 22:20 23:27 03:45 Temp 99.3 98.0 99.3 98.0 Pulse 92 103 65 Resp 22 20 B/P (MAP) 117/81 119/69 (86) 116/75 (89) Pulse Ox 94 96 O2 Delivery Nasal Cannula Nasal Cannula Nasal Cannula O2 Flow Rate 2.0 2.0 2.0 11/17/16 11/17/16 11/17/16 11/17/16 05:41 07:00 07:36 07:38 Temp 98.0 98.0 Pulse 109 Resp 20 B/P (MAP) 118/56 (76) Pulse Ox 95 84 84 O2 Delivery Nasal Cannula Nasal Cannula Room Air Room Air O2 Flow Rate 2.0 2.0 11/17/16 11/17/16 11/17/16 11/17/16 08:00 09:23 10:54 10:59 Temp 98.4 98.4 Pulse 109 77 Resp 21 B/P (MAP) 118/56 102/64 (77) Pulse Ox 96 O2 Delivery Nasal Cannula Nasal Cannula Nasal Cannula O2 Flow Rate 2.0 2.0 2.0 11/17/16 11/17/16 11/17/16 11/17/16 14:27 15:24 15:38 17:52 Temp 98.6 98.6 Pulse 70 Resp 20 B/P (MAP) 109/54 (72) Pulse Ox 94 O2 Delivery Nasal Cannula Nasal Cannula Nasal Cannula Room Air O2 Flow Rate 2.0 2.0 2.0 Intake and Output 11/17/16 11/17/16 11/18/16 15:00 23:00 07:00 Intake Total 360 ml Output Total 1000 ml 750 ml Balance -640 ml -750 ml CRYSTAL ARCHULETA MD Nov 17, 2016 18:03
[2016-11-17 19:00] VITALS: BP 115/52
[2016-11-17] MEDS: ATORVASTATIN CALCIUM 40 MG TABLET. PO SCH (20:52)
[2016-11-17 23:00] VITALS: BP 119/57
[2016-11-18 02:45] VITALS: BP 126/72
[2016-11-18 05:03] LABS: CALCIUM 9.3 mg/dL (8.5-10.1); CREATININE 1.3 mg/dL (0.6-1.0); GFR 39.6; POTASSIUM 3.7 mmol/L (3.5-5.1)
[2016-11-18] MEDS: LEVOTHYROXINE 150 MCG TABLET PO SCH (06:40)
[2016-11-18 07:00] VITALS: BP 103/48
[2016-11-18] MEDS: BUDESONIDE 0.5 MG/2 ML NEBU. NEB SCH (07:33)
[2016-11-18] MEDS: IPRATRPIUM/ALBUTEROL 0.5/2.5MG 3 ML NEBU. NEB SCH (07:33)
[2016-11-18] MEDS ORDERED: ENOXAPARIN 40 MG/0.4 ML SYRINGE. SQ SCH (09:00)
[2016-11-18] MEDS: CITALOPRAM 20 MG TABLET. PO SCH (09:28)
[2016-11-18] MEDS: ASPIRIN ENTERIC COATED 325 MG TABLET.DR. PO SCH (09:28)
[2016-11-18] MEDS: FUROSEMIDE 20 MG TABLET PO SCH (09:28)
[2016-11-18] MEDS: LOSARTAN POTASSIUM 50 MG TABLET. PO SCH (09:29)
[2016-11-18] MEDS: POTASSIUM CHLORIDE 20 MEQ TABLET.ER. PO SCH (09:29)
[2016-11-18] MEDS: GLIMEPIRIDE 2 MG TABLET. PO SCH (09:32)
--- NOTE | 2016-11-18 10:05 | PDOC ---
PULMONARY PROGRESS NOTES Subjective PT FEELS BETTER LESS SOA Vitals Vital Signs Date Time Temp Pulse Resp B/P (MAP) Pulse Ox O2 Delivery O2 Flow Rate FiO2 11/18/16 09:29 83 103/48 11/18/16 08:13 Nasal Cannula 2.0 11/18/16 07:33 96 11/18/16 07:00 97.7 20 97.7 ROS: No Nausea, No Chest Pain, No Abdominal Pain, No Increase Cough General: Alert Lungs: Clear Cardiovascular: S1, S2 Abdomen: Soft Neuro Exam: Alert Extremities: No Edema Skin: Warm Labs Laboratory Tests Test 11/16/16 10:20 11/16/16 10:25 11/16/16 11:25 11/16/16 11:58 Lactic Acid Level 1.4 mmol/L (0.4-2.0) White Blood Count 12.4 x10^3/uL (4.0-11.0) Red Blood Count 2.93 x10^6/uL (3.50-5.40) Hemoglobin 9.7 g/dL (12.0-15.5) Hematocrit 29.2 % (36.0-47.0) Mean Corpuscular Volume 100 fL (79-100) Mean Corpuscular Hemoglobin 33 pg (25-35) Mean Corpuscular Hemoglobin Concent 33 g/dL (31-37) Red Cell Distribution Width 14.2 % (11.5-14.5) Platelet Count 240 x10^3/uL (140-400) Neutrophils (%) (Auto) 86 % (31-73) Lymphocytes (%) (Auto) 5 % (24-48) Monocytes (%) (Auto) 9 % (0-9) Eosinophils (%) (Auto) 0 % (0-3) Basophils (%) (Auto) 0 % (0-3) Neutrophils # (Auto) 10.6 x10^3uL (1.8-7.7) Lymphocytes # (Auto) 0.6 x10^3/uL (1.0-4.8) Monocytes # (Auto) 1.1 x10^3/uL (0.0-1.1) Eosinophils # (Auto) 0.0 x10^3/uL (0.0-0.7) Basophils # (Auto) 0.1 x10^3/uL (0.0-0.2) Segmented Neutrophils % 87 % (35-66) Band Neutrophils % 2 % (0-9) Lymphocytes % 4 % (24-48) Monocytes % 6 % (0-10) Basophils % 1 % (0-3) Platelet Estimate Adequate (ADEQUATE) Polychromasia Slight Vitamin B12 Level 281 pg/mL (247-911) Serum Folate 16.29 ng/ml (3.2-20.0) Sodium Level 140 mmol/L (136-145) Potassium Level 4.5 mmol/L (3.5-5.1) Chloride Level 103 mmol/L (98-107) Carbon Dioxide Level 32 mmol/L (21-32) Anion Gap 5 (6-14) Blood Urea Nitrogen 12 mg/dL (7-20) Creatinine 0.9 mg/dL (0.6-1.0) Estimated GFR (Cockcroft-Gault) 60.6 Glucose Level 192 mg/dL (70-99) Calcium Level 8.5 mg/dL (8.5-10.1) Magnesium Level 2.2 mg/dL (1.8-2.4) Total Bilirubin 0.7 mg/dL (0.2-1.0) Direct Bilirubin 0.2 mg/dL (0.0-0.2) Aspartate Amino Transf (AST/SGOT) 9 U/L (15-37) Alanine Aminotransferase (ALT/SGPT) 16 U/L (14-59) Alkaline Phosphatase 77 U/L (46-116) Creatine Kinase 30 U/L (26-192) Creatine Kinase MB (Mass) < 0.5 ng/mL (0.0-3.6) Creatine Kinase MB Relative Index % (0-4) Troponin I Quantitative < 0.017 ng/mL (0.000-0.055) KW-Mpm-U-Type Natriuretic Peptide 3353 pg/mL (0-449) Total Protein 6.0 g/dL (6.4-8.2) Albumin 2.8 g/dL (3.4-5.0) Lipase 109 U/L (73-393) Urine Collection Type Unknown Urine Color Yellow Urine Clarity Turbid Urine pH 6.0 Urine Specific [place] 1.020 Urine Protein 100 mg/dL (NEG-TRACE) Urine Glucose (UA) 500 mg/dL (NEG) Urine Ketones (Stick) Negative mg/dL (NEG) Urine Blood Moderate (NEG) Urine Nitrite Positive (NEG) Urine Bilirubin Negative (NEG) Urine Urobilinogen Dipstick 0.2 mg/dL (0.2 mg/dL) Urine Leukocyte Esterase Large (NEG) Urine RBC Fobs /HPF (0-2) Urine WBC Tntc /HPF (0-4) Urine Squamous Epithelial Cells Many /LPF Urine Bacteria Many /HPF (0-FEW) Urine Mucus Marked /LPF Test 11/16/16 13:50 11/16/16 16:45 11/17/16 03:54 11/18/16 03:52 Troponin I Quantitative < 0.017 ng/mL (0.000-0.055) < 0.017 ng/mL (0.000-0.055) White Blood Count 8.4 x10^3/uL (4.0-11.0) Red Blood Count 3.17 x10^6/uL (3.50-5.40) Hemoglobin 10.7 g/dL (12.0-15.5) Hematocrit 31.3 % (36.0-47.0) Mean Corpuscular Volume 99 fL (79-100) Mean Corpuscular Hemoglobin 34 pg (25-35) Mean Corpuscular Hemoglobin Concent 34 g/dL (31-37) Red Cell Distribution Width 14.4 % (11.5-14.5) Platelet Count 260 x10^3/uL (140-400) Neutrophils (%) (Auto) 73 % (31-73) Lymphocytes (%) (Auto) 14 % (24-48) Monocytes (%) (Auto) 11 % (0-9) Eosinophils (%) (Auto) 1 % (0-3) Basophils (%) (Auto) 1 % (0-3) Neutrophils # (Auto) 6.2 x10^3uL (1.8-7.7) Lymphocytes # (Auto) 1.2 x10^3/uL (1.0-4.8) Monocytes # (Auto) 0.9 x10^3/uL (0.0-1.1) Eosinophils # (Auto) 0.1 x10^3/uL (0.0-0.7) Basophils # (Auto) 0.0 x10^3/uL (0.0-0.2) Sodium Level 142 mmol/L (136-145) 138 mmol/L (136-145) Potassium Level 3.9 mmol/L (3.5-5.1) 3.7 mmol/L (3.5-5.1) Chloride Level 100 mmol/L (98-107) 99 mmol/L (98-107) Carbon Dioxide Level 33 mmol/L (21-32) 36 mmol/L (21-32) Anion Gap 9 (6-14) 3 (6-14) Blood Urea Nitrogen 15 mg/dL (7-20) 19 mg/dL (7-20) Creatinine 0.9 mg/dL (0.6-1.0) 1.3 mg/dL (0.6-1.0) Estimated GFR (Cockcroft-Gault) 60.6 39.6 BUN/Creatinine Ratio 17 (6-20) Glucose Level 133 mg/dL (70-99) 162 mg/dL (70-99) Calcium Level 8.8 mg/dL (8.5-10.1) 9.3 mg/dL (8.5-10.1) Total Bilirubin 0.6 mg/dL (0.2-1.0) Aspartate Amino Transf (AST/SGOT) 15 U/L (15-37) Alanine Aminotransferase (ALT/SGPT) 17 U/L (14-59) Alkaline Phosphatase 79 U/L (46-116) Total Protein 6.4 g/dL (6.4-8.2) Albumin 2.9 g/dL (3.4-5.0) Albumin/Globulin Ratio 0.8 (1.0-1.7) Laboratory Tests Test 11/18/16 03:52 Sodium Level 138 mmol/L (136-145) Potassium Level 3.7 mmol/L (3.5-5.1) Chloride Level 99 mmol/L (98-107) Carbon Dioxide Level 36 mmol/L (21-32) Anion Gap 3 (6-14) Blood Urea Nitrogen 19 mg/dL (7-20) Creatinine 1.3 mg/dL (0.6-1.0) Estimated GFR (Cockcroft-Gault) 39.6 Glucose Level 162 mg/dL (70-99) Calcium Level 9.3 mg/dL (8.5-10.1) Medications Active Scripts Medications Dose Route/Sig Max Daily Dose Days Date Category Dose Instructions Cyclobenzaprine Hcl 10 Mg Tablet 1 Tab PO TID 10/07/16 Rx [place] 5-325 Tablet (Acetaminophen/Hydrocodone Bitart) 1 Each Tablet 1 Tab PO PRN Q6HRS PRN 10/07/16 Rx Aspirin Ec (Aspirin) 325 Mg Tablet. 1 Tab PO BID 12/26/15 Reported Last dose: 12-27-15 at 08 am. Next dose: 12-27-15 at 9 pm tonight. Hydrocodone-Apap 7.5-325 (Hydrocodone Bit/Acetaminophen) 1 Each Tablet 1-2 Tab PO PRN Q6HRS PRN 12/26/15 Reported Took at 2:30 today may take anytime as needed every 6 hours Synthroid (Levothyroxine Sodium) 150 Mcg Tablet 1 Tab PO DAILY 12/16/15 Reported Last dose taken: 12-27-15 at 07am Next dose: 12-28-15 at 07am Amaryl (Glimepiride) 4 Mg Tablet 1 Tab PO BID 12/16/15 Reported Last dose taken 12/27/15 at 08:30 am. Next dose: 12/27/15 at 6pm Saline Nasal [place] (Sodium Chloride) 30 Ml [place] 30 Ml NS PRN PRN 07/18/15 Reported May resume at home as needed. Lasix (Furosemide) 20 Mg Tablet 1 Tab PO DAILY 07/18/15 Reported None taken today may resume in am. Zyrtec (Cetirizine Hcl) 10 Mg Tablet 1 Tab PO PRN PRN 07/18/15 Reported Not taken in hosp. May resume at home as directed as needed Albuterol Sulfate Neb Soln (Albuterol Sulfate) 2.5 Mg/3 Ml Vial.neb 1 Vial NEB BID 07/18/15 Reported LAST DOSE GIVEN: DATE:12-27-15 TIME:8:00 a.m. NEXT DOSE DUE: DATE:12-27-15 TIME:9:00 p.m. Flovent 110MCG Hfa (Fluticasone Propionate) 12 Gm Aer.w.adap 220 Mcg IH BID 07/18/15 Reported LAST DOSE GIVEN: DATE: 12-27-15 TIME: 9:00 a.m. NEXT DOSE DUE: DATE: 12-27-15 TIME: 9:00 p.m. Tylenol Extra Strength (Acetaminophen) 500 Mg Tablet 1,500 Mg PO BID 04/17/15 Reported Last dose taken at 0800 am. Take home as directed but do not take with pain medications and do not exceed 4,000mg in 24 hour period. Potassium Chloride 20 Meq Tab.er.prt 1 Tab PO DAILY 04/17/15 Reported LAST DOSE GIVEN: DATE: 12-27-15 TIME: 8:30 a.m. NEXT DOSE DUE: DATE: 12-28-15 TIME: 8:30 a.m. Metolazone 5 Mg Tablet 5 Mg PO DAILY 04/16/15 Reported LAST DOSE GIVEN: DATE: 12-27-15 TIME: 8:30 a.m. NEXT DOSE DUE: DATE: 12-28-15 TIME: 8:30 a.m. Lexapro (Escitalopram Oxalate) 10 Mg Tablet 10 Mg PO DAILY 05/01/13 Reported LAST DOSE GIVEN: DATE: 12-27-15 TIME: 8:30 a.m. NEXT DOSE DUE: DATE: 12-28-15 TIME: 8:30 a.m. Cardizem Cd (Diltiazem Hcl) 240 Mg Cap.er.24h 240 Mg PO HS 05/01/13 Reported LAST DOSE GIVEN: DATE: 12-26-15 TIME: 9:00 p.m. NEXT DOSE DUE: DATE: 12-27-15 TIME: 9:00 p.m. Losartan Potassium 100 Mg Tablet 100 Mg PO DAILY 05/01/13 Reported None taken today resume in am. Crestor (Rosuvastatin Calcium) 40 Mg Tablet 40 Mg PO QHS 05/01/13 Reported LAST DOSE GIVEN: DATE: 12-26-15 TIME: 9:00 p.m. NEXT DOSE DUE: DATE: 12-27-15 TIME: 9:00 p.m. Impression . 1. Acute respiratory distress secondary to acute mild congestive heart failure along with acute exacerbation of chronic obstructive pulmonary disease. 2. Abnormal x-ray compatible with mild interstitial infiltrates. 3. Secondary pulmonary hypertension on previous echocardiogram in April 2016 revealed a pulmonary artery pressure of 48. 4. Clinical symptoms and signs of obstructive sleep apnea, the patient does not wish to proceed with a sleep study. She is unable to tolerate CPAP secondary to claustrophobia. 5. Systemic hypertension. 6. Secondary pulmonary hypertension. 7. Positive urinary tract infection. 8. Severe protein malnutrition. Plan . PT IMPROVING HOME SOON OK BY ME FOLLOW UP IN MY OFFICE TAPER PRED 02 HARLEEN MENDOZA MD Nov 18, 2016 10:05
--- NOTE | 2016-11-18 10:25 | PDOC3 ---
Discharge Summary Visit Information Date of Admission: Nov 16, 2016 Date of Discharge: Nov 18, 2016 Admitting Diagnosis Comment: GNR UTI, no sepsis, SIRS infectious, no organ dysfcn acute diastolic CHF, Acute on chronci leg edema moderate malnutrition, , BMI 40 anemia, macrocytic, COPD, stable Final Diagnosis Problems Medical Problems: (1) Congestive heart failure (CHF) Status: Acute (2) COPD (chronic obstructive pulmonary disease) Status: Acute (3) Moderate protein malnutrition Status: Acute (4) Urinary tract infection Status: Acute Brief Hospital Course Allergies Allergies Coded Allergies Type Severity Reaction Last Updated Verified SEAN Inhibitors Allergy Intermediate 11/16/16 Yes Iodinated Contrast- Oral and IV Dye Allergy Intermediate 11/16/16 Yes Penicillins Allergy Intermediate 11/16/16 Yes sulfamethoxazole Allergy Intermediate 11/16/16 Yes trimethoprim Allergy Intermediate 11/16/16 Yes Vital Signs Vital Signs Date Time Temp Pulse Resp B/P (MAP) Pulse Ox O2 Delivery O2 Flow Rate FiO2 11/18/16 09:29 83 103/48 11/18/16 08:13 Nasal Cannula 2.0 11/18/16 07:33 96 11/18/16 07:00 97.7 20 97.7 Lab Results Laboratory Tests Test 11/16/16 10:25 11/16/16 11:25 11/16/16 11:58 11/16/16 13:50 White Blood Count 12.4 x10^3/uL (4.0-11.0) Red Blood Count 2.93 x10^6/uL (3.50-5.40) Hemoglobin 9.7 g/dL (12.0-15.5) Hematocrit 29.2 % (36.0-47.0) Mean Corpuscular Volume 100 fL (79-100) Mean Corpuscular Hemoglobin 33 pg (25-35) Mean Corpuscular Hemoglobin Concent 33 g/dL (31-37) Red Cell Distribution Width 14.2 % (11.5-14.5) Platelet Count 240 x10^3/uL (140-400) Neutrophils (%) (Auto) 86 % (31-73) Lymphocytes (%) (Auto) 5 % (24-48) Monocytes (%) (Auto) 9 % (0-9) Eosinophils (%) (Auto) 0 % (0-3) Basophils (%) (Auto) 0 % (0-3) Neutrophils # (Auto) 10.6 x10^3uL (1.8-7.7) Lymphocytes # (Auto) 0.6 x10^3/uL (1.0-4.8) Monocytes # (Auto) 1.1 x10^3/uL (0.0-1.1) Eosinophils # (Auto) 0.0 x10^3/uL (0.0-0.7) Basophils # (Auto) 0.1 x10^3/uL (0.0-0.2) Segmented Neutrophils % 87 % (35-66) Band Neutrophils % 2 % (0-9) Lymphocytes % 4 % (24-48) Monocytes % 6 % (0-10) Basophils % 1 % (0-3) Platelet Estimate Adequate (ADEQUATE) Polychromasia Slight Vitamin B12 Level 281 pg/mL (247-911) Serum Folate 16.29 ng/ml (3.2-20.0) Sodium Level 140 mmol/L (136-145) Potassium Level 4.5 mmol/L (3.5-5.1) Chloride Level 103 mmol/L (98-107) Carbon Dioxide Level 32 mmol/L (21-32) Anion Gap 5 (6-14) Blood Urea Nitrogen 12 mg/dL (7-20) Creatinine 0.9 mg/dL (0.6-1.0) Estimated GFR (Cockcroft-Gault) 60.6 Glucose Level 192 mg/dL (70-99) Calcium Level 8.5 mg/dL (8.5-10.1) Magnesium Level 2.2 mg/dL (1.8-2.4) Total Bilirubin 0.7 mg/dL (0.2-1.0) Direct Bilirubin 0.2 mg/dL (0.0-0.2) Aspartate Amino Transf (AST/SGOT) 9 U/L (15-37) Alanine Aminotransferase (ALT/SGPT) 16 U/L (14-59) Alkaline Phosphatase 77 U/L (46-116) Creatine Kinase 30 U/L (26-192) Creatine Kinase MB (Mass) < 0.5 ng/mL (0.0-3.6) Creatine Kinase MB Relative Index % (0-4) Troponin I Quantitative < 0.017 ng/mL (0.000-0.055) < 0.017 ng/mL (0.000-0.055) EZ-Uft-B-Type Natriuretic Peptide 3353 pg/mL (0-449) Total Protein 6.0 g/dL (6.4-8.2) Albumin 2.8 g/dL (3.4-5.0) Lipase 109 U/L (73-393) Urine Collection Type Unknown Urine Color Yellow Urine Clarity Turbid Urine pH 6.0 Urine Specific [place] 1.020 Urine Protein 100 mg/dL (NEG-TRACE) Urine Glucose (UA) 500 mg/dL (NEG) Urine Ketones (Stick) Negative mg/dL (NEG) Urine Blood Moderate (NEG) Urine Nitrite Positive (NEG) Urine Bilirubin Negative (NEG) Urine Urobilinogen Dipstick 0.2 mg/dL (0.2 mg/dL) Urine Leukocyte Esterase Large (NEG) Urine RBC Fobs /HPF (0-2) Urine WBC Tntc /HPF (0-4) Urine Squamous Epithelial Cells Many /LPF Urine Bacteria Many /HPF (0-FEW) Urine Mucus Marked /LPF Test 11/16/16 16:45 11/17/16 03:54 11/18/16 03:52 Troponin I Quantitative < 0.017 ng/mL (0.000-0.055) White Blood Count 8.4 x10^3/uL (4.0-11.0) Red Blood Count 3.17 x10^6/uL (3.50-5.40) Hemoglobin 10.7 g/dL (12.0-15.5) Hematocrit 31.3 % (36.0-47.0) Mean Corpuscular Volume 99 fL (79-100) Mean Corpuscular Hemoglobin 34 pg (25-35) Mean Corpuscular Hemoglobin Concent 34 g/dL (31-37) Red Cell Distribution Width 14.4 % (11.5-14.5) Platelet Count 260 x10^3/uL (140-400) Neutrophils (%) (Auto) 73 % (31-73) Lymphocytes (%) (Auto) 14 % (24-48) Monocytes (%) (Auto) 11 % (0-9) Eosinophils (%) (Auto) 1 % (0-3) Basophils (%) (Auto) 1 % (0-3) Neutrophils # (Auto) 6.2 x10^3uL (1.8-7.7) Lymphocytes # (Auto) 1.2 x10^3/uL (1.0-4.8) Monocytes # (Auto) 0.9 x10^3/uL (0.0-1.1) Eosinophils # (Auto) 0.1 x10^3/uL (0.0-0.7) Basophils # (Auto) 0.0 x10^3/uL (0.0-0.2) Sodium Level 142 mmol/L (136-145) 138 mmol/L (136-145) Potassium Level 3.9 mmol/L (3.5-5.1) 3.7 mmol/L (3.5-5.1) Chloride Level 100 mmol/L (98-107) 99 mmol/L (98-107) Carbon Dioxide Level 33 mmol/L (21-32) 36 mmol/L (21-32) Anion Gap 9 (6-14) 3 (6-14) Blood Urea Nitrogen 15 mg/dL (7-20) 19 mg/dL (7-20) Creatinine 0.9 mg/dL (0.6-1.0) 1.3 mg/dL (0.6-1.0) Estimated GFR (Cockcroft-Gault) 60.6 39.6 BUN/Creatinine Ratio 17 (6-20) Glucose Level 133 mg/dL (70-99) 162 mg/dL (70-99) Calcium Level 8.8 mg/dL (8.5-10.1) 9.3 mg/dL (8.5-10.1) Total Bilirubin 0.6 mg/dL (0.2-1.0) Aspartate Amino Transf (AST/SGOT) 15 U/L (15-37) Alanine Aminotransferase (ALT/SGPT) 17 U/L (14-59) Alkaline Phosphatase 79 U/L (46-116) Total Protein 6.4 g/dL (6.4-8.2) Albumin 2.9 g/dL (3.4-5.0) Albumin/Globulin Ratio 0.8 (1.0-1.7) Laboratory Tests Test 11/18/16 03:52 Sodium Level 138 mmol/L (136-145) Potassium Level 3.7 mmol/L (3.5-5.1) Chloride Level 99 mmol/L (98-107) Carbon Dioxide Level 36 mmol/L (21-32) Anion Gap 3 (6-14) Blood Urea Nitrogen 19 mg/dL (7-20) Creatinine 1.3 mg/dL (0.6-1.0) Estimated GFR (Cockcroft-Gault) 39.6 Glucose Level 162 mg/dL (70-99) Calcium Level 9.3 mg/dL (8.5-10.1) Brief Hospital Course Ms. Will is a 76 old female admitted for CHF exacerb, Her PCP either recently dec lasix dose or stopped it, maybe for kidney issues or was not needed? she came with more leg edema, better with IV lasix 20 TID and K supplements as per cards. Legs now back to baseline, INcidental UTI on UA., Being dcd on PO cipro, to cont home lasix 20 PO qD Seen and examined Consults: dr. Baez Time 31 mins Discharge Information Condition at Discharge: Improved, Stable Disposition/Orders: D/C to Home Scheduled Acetaminophen (Tylenol Extra Strength), 1,500 MG PO BID, (Reported) Albuterol Sulfate (Albuterol Sulfate Neb Soln), 1 VIAL NEB BID, (Reported) Aspirin (Aspirin), 1 TAB PO DAILY, (Reported) Cyclobenzaprine Hcl (Cyclobenzaprine Hcl), 1 TAB PO TID Diltiazem Hcl (Cardizem Cd), 240 MG PO HS, (Reported) Escitalopram Oxalate (Lexapro), 10 MG PO DAILY, (Reported) Fluticasone Propionate (Flovent 110MCG Hfa), 220 MCG IH BID, (Reported) Furosemide (Lasix), 1 TAB PO DAILY, (Reported) Glimepiride (Amaryl), 1 TAB PO BID, (Reported) Levothyroxine Sodium (Synthroid), 1 TAB PO DAILY, (Reported) Losartan Potassium (Losartan Potassium), 100 MG PO DAILY, (Reported) Metolazone (Metolazone), 5 MG PO DAILY, (Reported) Potassium Chloride (Potassium Chloride), 1 TAB PO DAILY, (Reported) Rosuvastatin Calcium (Crestor), 40 MG PO QHS, (Reported) Scheduled PRN Cetirizine Hcl (Zyrtec), 1 TAB PO PRN PRN for ALLERGIES, (Reported) Hydrocodone Bit/Acetaminophen (Hydrocodone-Apap 7.5-325 ), 1-2 TAB PO PRN Q6HRS PRN for PAIN, (Reported) Hydrocodone/Apap 5-325 ([place] 5-325 Tablet), 1 TAB PO PRN Q6HRS PRN for PAIN Sodium Chloride (Saline Nasal [place]), 30 ML NS PRN PRN for nasal dryness, ( Reported) Discontinued Medications Aspirin (Aspirin Ec), 1 TAB PO BID, (Reported) Discontinued Reason: Prescription changed MARIBEL GUTIERRES MD Nov 18, 2016 10:25
[2016-11-18 10:52] VITALS: BP 104/43
== END 2016-11-18 11:50 | disposition home or self-care (01) | DRG 291 ==
LOC: ER 10:08 → 2 NORTH 11:16
PROVIDERS: ADMIT Internal Medicine; ATTEND Internal Medicine
DX: I50.43 Acute on chronic combined systolic (congestive) and diastolic (congestive) heart failure (principal); J96.21 Acute and chronic respiratory failure with hypoxia; E43 Unspecified severe protein-calorie malnutrition; I95.9 Hypotension, unspecified; I27.2 Other secondary pulmonary hypertension; Z99.81 Dependence on supplemental oxygen; J44.1 Chronic obstructive pulmonary disease with (acute) exacerbation; N39.0 Urinary tract infection, site not specified; E44.0 Moderate protein-calorie malnutrition; Z68.41 Body mass index [BMI] 40.0-44.9, adult; I11.0 Hypertensive heart disease with heart failure; Z96.653 Presence of artificial knee joint, bilateral; I48.91 Unspecified atrial fibrillation; E11.9 Type 2 diabetes mellitus without complications; D53.9 Nutritional anemia, unspecified; E78.5 Hyperlipidemia, unspecified; E66.9 Obesity, unspecified; E78.00 Pure hypercholesterolemia, unspecified; F40.240 Claustrophobia; I15.9 Secondary hypertension, unspecified; G47.33 Obstructive sleep apnea (adult) (pediatric); I25.10 Atherosclerotic heart disease of native coronary artery without angina pectoris; F41.9 Anxiety disorder, unspecified; R00.0 Tachycardia, unspecified; Z88.0 Allergy status to penicillin; Z88.2 Allergy status to sulfonamides; Z87.891 Personal history of nicotine dependence; Z90.49 Acquired absence of other specified parts of digestive tract; Z90.710 Acquired absence of both cervix and uterus; Z95.1 Presence of aortocoronary bypass graft; Z98.84 Bariatric surgery status; Z88.8 Allergy status to other drugs, medicaments and biological substances
CPT/HCPCS: 36415; 71010; 80048; 80053; 80076; 81001; 82553; 82607; 82746; 83605; 83690; 83735; 83880; 84484; 85007; 85025; 87040; 87086; 87186; 90686; 93005; 94250; 94640; 94760; J1650; J1940; J1956; J7620; J7626; 99285-25

== ENCOUNTER 2017-01-05 06:15 | Inpatient (IN) | payer MEDICARE, OTHER ==
[2017-01-05] VITALS (10 sets, daily range): BP systolic 96–134; BP diastolic 56–80
[~2017-01-05] VITALS: Ht 170.2 cm; Wt 117.0 kg
[~2017-01-05 06:15] MED LIST changes: +ASPI-630 PO; +CLINDAMYCIN 600MG PREMIX 50 ML IV PRN; +FURO40TA4 PO; +LEVO137T3 PO
[2017-01-05] MEDS ORDERED: CLINDAMYCIN PREMIX 600 MG/50 ML BAG. IV ONE (07:00)
[2017-01-05] MEDS ORDERED: PROCHLORPERAZINE 10 MG/2 ML VIAL. IV PRN ×2 (07:00→08:15)
[2017-01-05] MEDS ORDERED: LIDOCAINE 1% PF 2 ML VIAL. ID PRN (07:00)
[2017-01-05] MEDS ORDERED: MORPHINE SULFATE 2 MG/ML DISP.SYRIN. IV PRN (07:00)
[2017-01-05] MEDS ORDERED: HYDROmorphone 2 MG/ML VIAL IV PRN (07:00)
[2017-01-05] MEDS ORDERED: IV RINGERS,LACTATED 1000ML 1,000 ML IV SCH (07:00)
[2017-01-05] MEDS ORDERED: fentaNYL PF VIAL 100 MCG/2 ML VIAL IV PRN ×3 (07:00→08:15)
[2017-01-05] MEDS ORDERED: DEXAMETHASONE SOD PHOS 20 MG/5 ML VIAL. ONE (07:22)
[2017-01-05] MEDS ORDERED: SEVOFLURANE 61 TO 120 MINUTES. IH ONE (07:22)
[2017-01-05] MEDS ORDERED: PROPOFOL 20 ML IV ONE (07:22)
[2017-01-05] MEDS ORDERED: ONDANSETRON PF 4 MG/2 ML VIAL. ONE (07:22)
[2017-01-05] MEDS ORDERED: MIDAZOLAM HCL/PF 2 MG/2 ML VIAL. ONE (07:22)
[2017-01-05] MEDS ORDERED: fentaNYL PF VIAL 100 MCG/2 ML VIAL ONE ×2 (07:22→10:21)
[2017-01-05] MEDS ORDERED: ROCURONIUM 50 MG/5 ML VIAL. ONE ×2 (07:32→09:02)
[2017-01-05] MEDS ORDERED: HYDROcodone/APAP 10/325 1 TAB TABLET PO PRN (08:15)
[2017-01-05] MEDS ORDERED: ACETAMINOPHEN 325 MG TABLET. PO PRN (08:15)
[2017-01-05] MEDS ORDERED: 0.9 % SODIUM CHLORIDE 10 ML DISP.SYRIN. IV PRN (08:15)
[2017-01-05] MEDS ORDERED: CLINDAMYCIN 900MG PREMIX 50 ML IV SCH (08:15)
[2017-01-05] MEDS ORDERED: ZOLPIDEM 5 MG TABLET. PO PRN (08:15)
[2017-01-05] MEDS ORDERED: traMADol 50 MG TABLET PO PRN ×2 (08:15)
[2017-01-05] MEDS ORDERED: CALCIUM CARBONATE 500 MG TAB.CHEW PO PRN (08:15)
[2017-01-05] MEDS ORDERED: oxyCODONE/APAP 7.5/325 1 TAB TABLET PO PRN (08:15)
[2017-01-05] MEDS ORDERED: DEXTROSE 50% 25 GM / 50ML DISP.SYRIN. IV PRN (08:15)
[2017-01-05] MEDS ORDERED: diphenhydrAMINE 50 MG/ML VIAL IV PRN (08:15)
[2017-01-05] MEDS ORDERED: MORPHINE SULFATE 4 MG/ML DISP.SYRIN. IV PRN ×3 (08:15)
[2017-01-05] MEDS ORDERED: MORPHINE SULFATE 10 MG/ML VIAL. IV PRN (08:15)
[2017-01-05] MEDS ORDERED: HYDROcodone/APAP 7.5/325MG 1 TAB TABLET PO PRN (08:15)
[2017-01-05] MEDS ORDERED: PHENYLEPHRINE in 0.9% NACL PF 1 MG/10 ML DISP.SYRIN. IV ONE (08:30)
--- NOTE | 2017-01-05 08:47 | HP ---
ADMIT DATE: 01/05/2017 PREOPERATIVE HISTORY AND PHYSICAL PRINCIPAL DIAGNOSIS: Left knee patellar instability. HISTORY OF PRESENT ILLNESS: The patient had a previous total knee arthroplasty and a traumatic dislocation of her patella, which remains with lateral tilt and occasional lateral displacement and instability. She states that the knee catches, it is painful and unstable. She is not getting around very well with her activities of daily living as a result and we had previously discussed at our clinic visit for definitive treatment of this issue. PAST MEDICAL HISTORY: Significant for diabetes mellitus, hypertension, atrial fibrillation, chronic obstructive pulmonary disease, rheumatoid arthritis, diverticulosis, esophageal ring and chronic gastritis. PAST SURGICAL HISTORY: Significant for left knee replacement about a year and a half ago, right knee replacement back in 2010 and a coronary artery bypass grafting in 2002, carpal tunnel release, lumbar laminectomy, gallbladder surgery and total abdominal hysterectomy. FAMILY HISTORY: Significant for hypertension in her mother, alcoholism in her father and emphysema, diabetes in her sibling. SOCIAL HISTORY: She is a former smoker. Denies alcohol or drug use. Her sister is here today with. MEDICATIONS: List is reviewed. ALLERGIES: INCLUDE SEAN INHIBITORS, BACTRIM, SULFA, CONTRAST DYE AND PENICILLIN. REVIEW OF SYSTEMS: Significant for both the left knee pain and instability as well as right shoulder pain status post a recent fall. She had been sent to physical therapy by Dr. Meléndez and hope she can complete that along with the rehab of her knee. On examination, she denies any recent chest pain, shortness of breath, radiating pain, numbness, tingling in the extremities, focal weakness, visual changes. PHYSICAL EXAMINATION: VITAL SIGNS: Per admission sheet. HEENT: Atraumatic, normocephalic. HEART: Regular rate and rhythm. LUNGS: Clear to auscultation bilaterally. ABDOMEN: Benign. EXTREMITIES: Examination of the left knee reveals a patellar tilt and lateral instability, otherwise good varus valgus stability and alignment of the left knee, well-healed midline incision. She has well-healed incision from a right total knee arthroplasty, normal alignment, stability of bilateral hips and ankles, shoulder, rotator cuff strength is intact, but she has some weakness, tenderness over the subacromial bursa area. Normal exam of the left shoulder, bilateral elbows and wrists. IMPRESSION: Left knee patellofemoral instability as well as right shoulder pain. TREATMENT PLAN: We had previously discussed undergoing a ligamentous augmentation of her and that to fix her patellofemoral tracking. She will undergo joint center admission to follow postoperatively. I have no problem having her rehab the right shoulder at the same time as the knee. She plans on intermediate facility admission following the procedure, likely at [facility]. All her questions were answered at this time and we are proceeding with surgical treatment as above. ASHWINI POWELL MD DR: MARRY/melva JOB#: [id number] / [id number]
[2017-01-05] MEDS ORDERED: NEOSTIGMINE 10 MG/10 ML VIAL. ONE (08:48)
[2017-01-05] MEDS ORDERED: GLYCOPYRROLATE 1 MG/5 ML VIAL. ONE (08:48)
[2017-01-05] MEDS ORDERED: ALBUTEROL SULFATE 2.5 MG/3 ML NEBU. ONE (08:54)
[2017-01-05] MEDS ORDERED: 0.9 % SODIUM CHLORIDE 50 ML VIAL. IJ ONE (08:55)
[2017-01-05] MEDS: SENNOSIDES/DOCUSATE 8.6/50MG TABLET. PO SCH (09:00)
[2017-01-05] MEDS: MULTIVITAMIN with MINERAL TABLET. PO SCH (09:00)
[2017-01-05] MEDS: FUROSEMIDE 40 MG TABLET. PO SCH (09:00)
[2017-01-05] MEDS: ASPIRIN CHEWABLE 81 MG TABLET. PO SCH (09:00)
[2017-01-05] MEDS: fentaNYL PF VIAL 100 MCG/2 ML VIAL IV PRN ×4 (11:13→12:42)
[2017-01-05] MEDS ORDERED: INSULIN ASPART 100 UNIT/ML 10ML VIAL. SQ ONE (12:45)
[2017-01-05] MEDS: HYDROcodone/APAP 7.5/325MG 1 TAB TABLET PO PRN (13:36)
[2017-01-05 13:59] LABS: INR 1.1 (0.8-1.1); PROTHROMBIN TIME PATIENT 13.4 SEC (11.7-14.0)
--- NOTE | 2017-01-05 14:32 | PDOC4 ---
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 She actually obtained a second opinion regarding recommended operative treatment to correct the instability which agreed with the general approach and all her questions were answered she wishes to proceed with surgical evaluation and treatment understanding the possibilities of medical or other anesthetic complications continued pain nerve or blood vessel damage weakness infection among others and she wished to proceed with surgical evaluation and treatment Operative text: Patient was identified procedure verified patient placed in supine position on the operating table. After adequate amounts of general endotracheal anesthesia were administered the left knee was placed with a thigh tourniquet and examined under anesthesia noted to have significant patellofemoral instability and tilt. The left leg was then prepped and draped in standard sterile fashion and After timeout was performed patient procedure identified and verified the left lower extremity was exsanguinated by elevation tourniquet inflated to 300 mmHg midline incision was made medial parapatellar approach was carried out and the medial retinacular tissue as well as the quadriceps were noted to be stretched and retracted somewhat. I developed tissue planes carefully to mobilize the overlying skin fascia patellar tendon and elected to advance the vastus medialis oblique is muscle along with reefing the retinaculum in addition to the planned medial patellofemoral ligament reconstruction. Knee components were otherwise intact even the patella which had minimal scuffing centrally and was otherwise well fixed and preserved since it had a minimum of wear. Attention was first turned to the medial patellofemoral ligament reconstruction where a donor Proteus longus tendon was some whip stitched on both ends consistent with its measurement and affixed to 2 mm drill holes through the patella where the tendons were attached over a bony bridge. The femoral insertion was located under fluoroscopic guidance and drilled to a size 94 depth of 40 mm and further drilled to 4 mm to allow a toggle lock construct by Shoopi for femoral fixation. Once the placement was confirmed the toggle lock was set engaged on the opposite cortex and the graft drawn into the femoral tunnel with excellent worship of patellar stability. Retinacular closure and vastus medialis oblique is advancement was then carried out with #5 Ethibond suture in a layered manner to assure maximum tissue apposition. Patellar tracking was verified throughout the knee motion. Thorough irrigation carried out normal saline solution subcutaneous closure was accomplished with buried Vicryl suture skin closure with ree a beatrice drain was placed and patient was returned to recovery room in stable condition having tolerated procedure well toes were noted be warm pink find deflation of the tourniquet ASHWINI POWELL MD Jan 05, 2017 14:32
[2017-01-05] MEDS: CLINDAMYCIN 900MG PREMIX 50 ML IV SCH ×2 (15:03→20:46)
[2017-01-05] MEDS: IV DEXTROSE 5 %-0.45 % NACL 1,000 ML IV SCH (15:05)
[2017-01-05] MEDS: oxyCODONE/APAP 5/325 1 TAB TABLET PO PRN (15:14)
[2017-01-05] MEDS ORDERED: WARFARIN 7.5 MG TABLET. PO ONE (16:00)
[2017-01-05] MEDS: GLIMEPIRIDE 2 MG TABLET. PO SCH (17:13)
[2017-01-05] MEDS: FERROUS SULFATE 325 MG TABLET. PO SCH (17:13)
[2017-01-05] MEDS: KETOROLAC 30 MG, BUPIVACAINE MPF 0.25% 20 ML, EPINEPHrine 0.5 MG in TOTAL VOLUME SYRING... INT ART SCH ×2 (18:00→19:25)
[2017-01-05] MEDS: KETOROLAC TROMETHAMINE 10 MG TABLET PO SCH (19:25)
[2017-01-05] MEDS: ATORVASTATIN CALCIUM 40 MG TABLET. PO SCH (21:27)
[2017-01-06] MEDS: KETOROLAC TROMETHAMINE 10 MG TABLET PO SCH ×4 (00:32→17:25)
[2017-01-06] MEDS: CLINDAMYCIN 900MG PREMIX 50 ML IV SCH (01:54)
[2017-01-06] MEDS: IV DEXTROSE 5 %-0.45 % NACL 1,000 ML IV SCH (01:55)
[2017-01-06 03:35] VITALS: BP 110/68
[2017-01-06 05:31] LABS: INR 1.2 (0.8-1.1); PROTHROMBIN TIME PATIENT 14.2 SEC (11.7-14.0)
[2017-01-06 05:34] LABS: HEMATOCRIT 34.4 % (36.0-47.0); HEMOGLOBIN 11.3 g/dL (12.0-15.5)
[2017-01-06] MEDS: KETOROLAC 30 MG, BUPIVACAINE MPF 0.25% 20 ML, EPINEPHrine 0.5 MG in TOTAL VOLUME SYRING... INT ART SCH (06:00)
[2017-01-06] MEDS ORDERED: MAGNESIUM HYDROXIDE 2,400 MG/30 ML ORAL.SUSP. PO PRN (06:00)
[2017-01-06 06:38] VITALS: BP 116/72
[2017-01-06] MEDS: LEVOTHYROXINE 137 MCG TABLET PO SCH (07:09)
[2017-01-06] MEDS: FERROUS SULFATE 325 MG TABLET. PO SCH ×2 (08:29→17:25)
[2017-01-06] MEDS: MULTIVITAMIN with MINERAL TABLET. PO SCH (08:29)
[2017-01-06] MEDS: ASPIRIN CHEWABLE 81 MG TABLET. PO SCH (08:30)
[2017-01-06] MEDS: SENNOSIDES/DOCUSATE 8.6/50MG TABLET. PO SCH (08:30)
[2017-01-06] MEDS: CITALOPRAM 20 MG TABLET. PO SCH (08:30)
[2017-01-06] MEDS: GLIMEPIRIDE 2 MG TABLET. PO SCH ×2 (08:30→17:25)
[2017-01-06] MEDS: HYDROcodone/APAP 7.5/325MG 1 TAB TABLET PO PRN ×2 (08:31→15:33)
[2017-01-06] MEDS: LOSARTAN POTASSIUM 25 MG TABLET. PO SCH (08:39)
[2017-01-06] MEDS: FUROSEMIDE 40 MG TABLET. PO SCH (08:40)
[2017-01-06 11:12] VITALS: BP 103/59
[2017-01-06] MEDS ORDERED: BISACODYL 10 MG SUPP.RECT. PR PRN (16:00)
[2017-01-06] MEDS ORDERED: WARFARIN 5 MG TABLET. PO ONE (16:00)
[2017-01-06 18:11] VITALS: BP 141/89
--- NOTE | 2017-01-06 18:38 | PDOC ---
PROGRESS NOTES Subjective Subjective Problems overnight: Felicita is doing well at this time knee is understandably sore but getting around relatively well with physical therapy with her brace for support Objective Vital Signs Vital Signs Date Time Temp Pulse Resp B/P (MAP) Pulse Ox O2 Delivery O2 Flow Rate FiO2 01/06/17 18:11 98.4 89 18 141/89 (106) 94 Nasal Cannula 2.0 98.4 Physical Exam On exam beatrice dressing is intact she has excellent patellofemoral tracking normal stability intact distal neurovascular status Labs Laboratory Tests Test 01/05/17 07:47 01/05/17 11:35 01/05/17 13:40 01/05/17 16:51 Glucose (Fingerstick) 155 mg/dL (70-99) 230 mg/dL (70-99) 229 mg/dL (70-99) Prothrombin Time 13.4 SEC (11.7-14.0) Prothromb Time International Ratio 1.1 (0.8-1.1) Test 01/05/17 21:01 01/06/17 05:11 01/06/17 06:47 01/06/17 11:15 Glucose (Fingerstick) 251 mg/dL (70-99) 170 mg/dL (70-99) 163 mg/dL (70-99) Hemoglobin 11.3 g/dL (12.0-15.5) Hematocrit 34.4 % (36.0-47.0) Mean Corpuscular Hemoglobin Concent 33 g/dL (31-37) Prothrombin Time 14.2 SEC (11.7-14.0) Prothromb Time International Ratio 1.2 (0.8-1.1) Test 01/06/17 16:41 Glucose (Fingerstick) 114 mg/dL (70-99) Laboratory Tests Test 01/05/17 21:01 01/06/17 05:11 01/06/17 06:47 01/06/17 11:15 Glucose (Fingerstick) 251 mg/dL (70-99) 170 mg/dL (70-99) 163 mg/dL (70-99) Hemoglobin 11.3 g/dL (12.0-15.5) Hematocrit 34.4 % (36.0-47.0) Mean Corpuscular Hemoglobin Concent 33 g/dL (31-37) Prothrombin Time 14.2 SEC (11.7-14.0) Prothromb Time International Ratio 1.2 (0.8-1.1) Test 01/06/17 16:41 Glucose (Fingerstick) 114 mg/dL (70-99) Assessment Assessment POD# [1], S/P [patellar stabilization with medial patellofemoral ligament reconstruction and tissue imbrication VMO advancement] Problems: Plan Plan of Care Continue mobilize with physical therapy only gentle range of motion in knee flexion, brace for support when ambulatory and for transfers Patient plans rehabilitation at [facility] and in addition to her knee rehabilitation will work on right shoulder motion and strength Discharged to rehabilitation when medically stable ASHWINI POWELL MD Jan 06, 2017 18:38
[2017-01-06 18:55] VITALS: BP 131/67
[2017-01-06] MEDS: ALBUTEROL SULFATE 2.5 MG/3 ML NEBU. NEB PRN (19:23)
[2017-01-06 21:23] VITALS: BP 126/69
[2017-01-06] MEDS: ATORVASTATIN CALCIUM 40 MG TABLET. PO SCH (21:29)
[2017-01-06] MEDS: oxyCODONE/APAP 5/325 1 TAB TABLET PO PRN (21:31)
[2017-01-07] MEDS: KETOROLAC TROMETHAMINE 10 MG TABLET PO SCH ×3 (00:10→12:00)
[2017-01-07 06:05] VITALS: BP 120/67
[2017-01-07 06:16] LABS: HEMATOCRIT 32.5 % (36.0-47.0); HEMOGLOBIN 10.8 g/dL (12.0-15.5)
[2017-01-07 06:33] LABS: INR 1.5 (0.8-1.1); PROTHROMBIN TIME PATIENT 17.5 SEC (11.7-14.0)
[2017-01-07] MEDS: LEVOTHYROXINE 137 MCG TABLET PO SCH (07:09)
[2017-01-07] MEDS: ALBUTEROL SULFATE 2.5 MG/3 ML NEBU. NEB PRN ×3 (08:26→20:56)
[2017-01-07] MEDS: ASPIRIN CHEWABLE 81 MG TABLET. PO SCH (08:27)
[2017-01-07] MEDS: GLIMEPIRIDE 2 MG TABLET. PO SCH ×2 (08:27→16:36)
[2017-01-07] MEDS: MULTIVITAMIN with MINERAL TABLET. PO SCH (08:27)
[2017-01-07] MEDS: FERROUS SULFATE 325 MG TABLET. PO SCH ×2 (08:27→16:32)
[2017-01-07] MEDS: LOSARTAN POTASSIUM 25 MG TABLET. PO SCH (08:28)
[2017-01-07] MEDS: CITALOPRAM 20 MG TABLET. PO SCH (08:28)
[2017-01-07] MEDS: FUROSEMIDE 40 MG TABLET. PO SCH (08:28)
[2017-01-07] MEDS: SENNOSIDES/DOCUSATE 8.6/50MG TABLET. PO SCH (08:28)
[2017-01-07] MEDS: HYDROcodone/APAP 7.5/325MG 1 TAB TABLET PO PRN ×2 (12:32→21:02)
[2017-01-07] MEDS ORDERED: PSYLLIUM HUSK (SUGAR FREE) 1 PKT PACKET PO SCH (13:15)
[2017-01-07] MEDS ORDERED: POLYETHYLENE GLYCOL 3350 17 GM PACKET. PO PRN (13:30)
--- NOTE | 2017-01-07 13:38 | PDOC ---
ORTHO PROGRESS NOTES Subjective Patient is doing okay today. She's feeling a little nauseated, but that is getting better. Pain medication is adequately treating her pain. She has been working with therapy and tolerating that okay. Post-op Day: 2 (Patellar realignment) Vitals Vital Signs Date Time Temp Pulse Resp B/P (MAP) Pulse Ox O2 Delivery O2 Flow Rate FiO2 01/07/17 13:01 99 01/07/17 12:32 Nasal Cannula 01/07/17 08:28 105 120/67 01/07/17 08:00 2.0 01/07/17 06:05 98.8 20 98.8 Labs Laboratory Tests Test 01/05/17 13:40 01/05/17 16:51 01/05/17 21:01 01/06/17 05:11 Prothrombin Time 13.4 SEC (11.7-14.0) 14.2 SEC (11.7-14.0) Prothromb Time International Ratio 1.1 (0.8-1.1) 1.2 (0.8-1.1) Glucose (Fingerstick) 229 mg/dL (70-99) 251 mg/dL (70-99) Hemoglobin 11.3 g/dL (12.0-15.5) Hematocrit 34.4 % (36.0-47.0) Mean Corpuscular Hemoglobin Concent 33 g/dL (31-37) Test 01/06/17 06:47 01/06/17 11:15 01/06/17 16:41 01/06/17 20:39 Glucose (Fingerstick) 170 mg/dL (70-99) 163 mg/dL (70-99) 114 mg/dL (70-99) 203 mg/dL (70-99) Test 01/07/17 06:03 01/07/17 06:22 Hemoglobin 10.8 g/dL (12.0-15.5) Hematocrit 32.5 % (36.0-47.0) Mean Corpuscular Hemoglobin Concent 33 g/dL (31-37) Prothrombin Time 17.5 SEC (11.7-14.0) Prothromb Time International Ratio 1.5 (0.8-1.1) Glucose (Fingerstick) 177 mg/dL (70-99) Laboratory Tests Test 01/06/17 16:41 01/06/17 20:39 01/07/17 06:03 01/07/17 06:22 Glucose (Fingerstick) 114 mg/dL (70-99) 203 mg/dL (70-99) 177 mg/dL (70-99) Hemoglobin 10.8 g/dL (12.0-15.5) Hematocrit 32.5 % (36.0-47.0) Mean Corpuscular Hemoglobin Concent 33 g/dL (31-37) Prothrombin Time 17.5 SEC (11.7-14.0) Prothromb Time International Ratio 1.5 (0.8-1.1) Notes Patient is awake and alert sitting up in chair. Breathing unlabored, no acute distress. Incision covered with dressing. Hinged knee brace in place. Neurovascular intact left lower extremity Problems: (1) Patellar instability of left knee Assessment and Plan Pain controlled Offered medication for acid reflux because I think this is the reason she's having some nausea but she declined Continue therapy CHARU MARIA APRN Jan 07, 2017 13:38
[2017-01-07] MEDS ORDERED: WARFARIN 4 MG TABLET. PO ONE (16:00)
[2017-01-07 18:12] VITALS: BP 109/59
[2017-01-07 19:00] VITALS: BP 115/66
[2017-01-07] MEDS: ATORVASTATIN CALCIUM 40 MG TABLET. PO SCH (21:02)
[2017-01-08 05:35] LABS: HEMATOCRIT 32.6 % (36.0-47.0); HEMOGLOBIN 10.9 g/dL (12.0-15.5)
[2017-01-08 05:36] LABS: INR 1.6 (0.8-1.1)
[2017-01-08] MEDS: LEVOTHYROXINE 137 MCG TABLET PO SCH (06:19)
[2017-01-08] MEDS: HYDROcodone/APAP 7.5/325MG 1 TAB TABLET PO PRN ×3 (06:19→15:49)
[2017-01-08 06:22] VITALS: BP 118/58
[2017-01-08] MEDS: MULTIVITAMIN with MINERAL TABLET. PO SCH (08:54)
[2017-01-08] MEDS: GLIMEPIRIDE 2 MG TABLET. PO SCH (08:54)
[2017-01-08] MEDS: FERROUS SULFATE 325 MG TABLET. PO SCH (08:54)
[2017-01-08] MEDS: CITALOPRAM 20 MG TABLET. PO SCH (08:55)
[2017-01-08] MEDS: ASPIRIN CHEWABLE 81 MG TABLET. PO SCH (08:55)
[2017-01-08] MEDS: SENNOSIDES/DOCUSATE 8.6/50MG TABLET. PO SCH (08:55)
[2017-01-08] MEDS: LOSARTAN POTASSIUM 25 MG TABLET. PO SCH (09:00)
[2017-01-08] MEDS: FUROSEMIDE 40 MG TABLET. PO SCH (09:00)
[2017-01-08] MEDS ORDERED: WARF5TAB7 PO (11:46)
[2017-01-08] MEDS ORDERED: FERR-26 PO (11:49)
[2017-01-08] MEDS ORDERED: WARFARIN 4 MG TABLET. PO ONE (14:00)
[2017-01-08 15:45] VITALS: BP 124/71
--- NOTE | 2017-01-08 20:35 | DS ---
DATE OF DISCHARGE: 01/08/2017 ORTHOPEDIC DISCHARGE SUMMARY PRINCIPAL DIAGNOSIS: Patellar instability, traumatic instability status post fall. PROCEDURE: Patellar realignment with quadriceps and VMO advancement and medial patellofemoral ligament reconstruction. Her activity level is weightbearing as tolerated with a brace for protection, ambulating with the leg in extension. She can undergo some gentle knee flexion, but certainly not forced at all, only over a very comfortable non-straining range of motion and let the knee come down gently with gravity, for example in a seated position but supported as necessary if it feels tight. DISPOSITION: To [facility]. ADDITIONAL CARE INSTRUCTIONS: Include maintenance of her FERNANDA drain until the suction pump ____ in one week. If there is any drainage, the dressing can be removed and then Aquacel dressing replaced. Follow up with Dr. Mendes in 2 weeks. DISPOSITION: Medications include [place] 7.5/325 one p.o. q. 4 hours p.r.n. pain. Resume preoperative medications per her discharge paper work. BRIEF DESCRIPTION OF HOSPITAL COURSE: The patient underwent correction of her patellar instability. She is getting along slowly with significant assistance with physical therapy due to her previous weakness and her transfer limitations, but otherwise pain control is reasonable. Her major issue had been fitting of her brace. I readjusted that fully today, day of discharge, to where she indicated that is fitting much better and following physical therapy was discharged to [facility] in stable condition. ASHWINI MENDES MD DR: MARRY/melva JOB#: [id number] / [id number] JUAN Turner MD
[2017-01-10] MEDS ORDERED: metOLazone 2.5 MG TABLET PO SCH (09:00)
[2017-01-10] MEDS ORDERED: POTASSIUM CHLORIDE 20 MEQ TABLET.ER. PO SCH (09:00)
== END 2017-01-08 16:30 | DRG 481 ==
LOC: OPSVCIP 06:15 → EDSTATUS 07:30 → 4 SOUTHEST 13:07
PROVIDERS: ADMIT Orthopaedic Surgery; ATTEND Orthopaedic Surgery
PROC: 0MUP0KZ Supplement Left Knee Bursa and Ligament with Nonautologous Tissue Substitute, Open Approach (ICD-10-PCS; 2017-01-05)
PROC: 0KS Muscles, Reposition (ICD-10-PCS; 2017-01-05)
PROC: 0QHC04Z Insertion of Internal Fixation Device into Left Lower Femur, Open Approach (ICD-10-PCS; principal; 2017-01-05 07:30)
DX: T84.023A Instability of internal left knee prosthesis, initial encounter (principal); Z68.41 Body mass index [BMI] 40.0-44.9, adult; I48.91 Unspecified atrial fibrillation; E11.9 Type 2 diabetes mellitus without complications; W19.XXXA Unspecified fall, initial encounter; J44.9 Chronic obstructive pulmonary disease, unspecified; M06.9 Rheumatoid arthritis, unspecified; I10 Essential (primary) hypertension; K57.90 Diverticulosis of intestine, part unspecified, without perforation or abscess without bleeding; K29.50 Unspecified chronic gastritis without bleeding; Z96.652 Presence of left artificial knee joint; Z96.651 Presence of right artificial knee joint; K21.9 Gastro-esophageal reflux disease without esophagitis; Z95.1 Presence of aortocoronary bypass graft; Z90.710 Acquired absence of both cervix and uterus; Z83.3 Family history of diabetes mellitus; Z82.5 Family history of asthma and other chronic lower respiratory diseases; Z82.49 Family history of ischemic heart disease and other diseases of the circulatory system; Z81.1 Family history of alcohol abuse and dependence; Z87.891 Personal history of nicotine dependence; Z88.0 Allergy status to penicillin; Z88.2 Allergy status to sulfonamides; Z88.8 Allergy status to other drugs, medicaments and biological substances; Z91.041 Radiographic dye allergy status; Y93.89 Activity, other specified; Y92.89 Other specified places as the place of occurrence of the external cause; Y99.8 Other external cause status; E66.3 Overweight
CPT/HCPCS: 36415; 73560; 76000; 82962; 85014; 85018; 85610; 94250; 94640; 94760; C1713; J0171; J1100; J1815; J1885; J2250; J2270; J2370; J2405; J2704; J2710; J3010; J3490; J7120; J7613; 97116; 97150; 97535

== ENCOUNTER 2017-02-05 08:30 | Inpatient (IN) | payer MEDICARE, OTHER ==
[2017-02-05] VITALS (13 sets, daily range): BP systolic 91–121; BP diastolic 56–71
[~2017-02-05] VITALS: Ht 170.2 cm; Wt 118.0 kg
[~2017-02-05 08:30] MED LIST changes: -CLINDAMYCIN 600MG PREMIX 50 ML IV PRN; +FERR-26 PO; +WARF5TAB7 PO
--- NOTE | 2017-02-05 09:12 | PHYS DOC ---
Past Medical History Past Medical History: A-Fib, CHF, COPD, Diabetes-Type II, High Cholesterol, Hypertension Past Surgical History: Cholecystectomy, Coronary Bypass Surgery, Gastric Bypass , Hysterectomy, Knee Replacement, Other Additional Past Surgical Histo: cervical laminectomy, bilat knee replacement Alcohol Use: None Drug Use: None Adult General Chief Complaint Chief Complaint: SHORTNESS OF BREATH HPI HPI Patient is a 76 year old female who presents with complaint of shortness of breath and fever. The patient states her shortness of breath has been worsening over the past 2 days. Patient started spiking fevers earlier today. Patient is currently staying at [facility] for rehabilitation from recent left knee surgery. Patient has history of COPD and CHF. Patient currently under the care of Dr. Meléndez. Staff reported that the patient seemed to be altered this morning and was reporting an elevated temperature, thus I called EMS. Patient has a temperature of 100.3F is found during triage. Patient states she is having significant shortness of breath at this time. Patient denies productive cough, chest pain, or abdominal pain currently. Patient has not taken any medications for her symptoms this morning. Review of Systems Review of Systems Constitutional: Fever, chills[] Eyes: Denies change in visual acuity, redness, or eye pain [] HENT: Denies nasal congestion or sore throat [] Respiratory: Shortness of breath[] Cardiovascular: Lower extremity edema, denies chest pain[] GI: Denies abdominal pain, nausea, vomiting, bloody stools or diarrhea [] : Denies dysuria or hematuria [] Musculoskeletal: Denies back pain or joint pain [] Integument: Denies rash or skin lesions [] Neurologic: Denies headache, focal weakness or sensory changes [] All other systems were reviewed and found to be within normal limits, except as documented in this note. Current Medications Current Medications Current Medications Medications (Trade) Dose Ordered Sig/Dean Start Time Stop Time Status Last Admin Dose Admin Albuterol/ Ipratropium (Duoneb) 6 ml 1X ONCE 02/05/17 09:15 02/05/17 09:16 DC 02/05/17 09:18 6 ML Sodium Chloride 1,000 ml @ 620 mls/hr [id number] 02/05/17 09:05 02/05/17 12:05 DC 02/05/17 10:43 620 MLS/HR Allergies Allergies Allergies Coded Allergies Type Severity Reaction Last Updated Verified SEAN Inhibitors Allergy Intermediate 02/02/17 Yes Iodinated Contrast- Oral and IV Dye Allergy Intermediate 02/02/17 Yes Penicillins Allergy Intermediate 02/02/17 Yes sulfamethoxazole Allergy Intermediate 02/02/17 Yes trimethoprim Allergy Intermediate 02/02/17 Yes Physical Exam Physical Exam Constitutional: Alert, morbidly obese, afebrile, appears in moderate to severe respiratory distress. [] HENT: Normocephalic, atraumatic, bilateral external ears normal, oropharynx moist, no oral exudates, nose normal. [] Eyes: PERRLA, EOMI, conjunctiva normal, no discharge. [] Neck: Normal range of motion, no tenderness, supple, no stridor. [] Cardiovascular: Tachycardia, irregular rhythm, no murmur [] Lungs & Thorax: Moderately restricted air movement bilaterally, expiratory wheezes and rales bilaterally[] Abdomen: Bowel sounds normal, soft, no tenderness, no masses, no pulsatile masses. [] Skin: Warm, dry, no erythema, no rash. [] Back: No tenderness, no CVA tenderness. [] Extremities: No tenderness, no cyanosis, left knee TKA incision healing, surrounding erythema present, no clubbing, ROM intact, 2+ pitting edema in the bilateral lower extremities. [] Neurologic: Alert and oriented X 3, normal motor function, normal sensory function, no focal deficits noted. [] Current Patient Data Vital Signs Vital Signs Date Time Temp Pulse Resp B/P (MAP) Pulse Ox O2 Delivery O2 Flow Rate FiO2 02/05/17 11:07 101 23 96/57 (70) 100 BiPAP/CPAP 02/05/17 09:37 3.0 02/05/17 08:47 100.3 100.3 Lab Values Laboratory Tests Test 02/05/17 09:05 02/05/17 09:10 02/05/17 09:30 02/05/17 09:55 White Blood Count 8.2 x10^3/uL (4.0-11.0) Red Blood Count 3.37 x10^6/uL (3.50-5.40) L Hemoglobin 9.6 g/dL (12.0-15.5) L Hematocrit 29.8 % (36.0-47.0) L Mean Corpuscular Volume 88 fL (79-100) Mean Corpuscular Hemoglobin 29 pg (25-35) Mean Corpuscular Hemoglobin Concent 32 g/dL (31-37) Red Cell Distribution Width 18.2 % (11.5-14.5) H Platelet Count 333 x10^3/uL (140-400) Neutrophils (%) (Auto) 90 % (31-73) H Lymphocytes (%) (Auto) 3 % (24-48) L Monocytes (%) (Auto) 7 % (0-9) Eosinophils (%) (Auto) 0 % (0-3) Basophils (%) (Auto) 0 % (0-3) Neutrophils # (Auto) 7.4 x10^3uL (1.8-7.7) Lymphocytes # (Auto) 0.2 x10^3/uL (1.0-4.8) L Monocytes # (Auto) 0.5 x10^3/uL (0.0-1.1) Eosinophils # (Auto) 0.0 x10^3/uL (0.0-0.7) Basophils # (Auto) 0.0 x10^3/uL (0.0-0.2) Segmented Neutrophils % 86 % (35-66) H Band Neutrophils % 4 % (0-9) Lymphocytes % 4 % (24-48) L Monocytes % 6 % (0-10) Platelet Estimate Adequate (ADEQUATE) Polychromasia Slight Anisocytosis Slight Tear Drop Cells Occ Ovalocytes Few Influenza Type A Antigen Negative (NEGATIVE) Influenza Type B Antigen Negative (NEGATIVE) O2 Saturation 91 % (92-99) L Arterial Blood pH 7.30 (7.35-7.45) L Arterial Blood pCO2 at Patient Temp 69 mmHg (35-46) *H Arterial Blood pO2 at Patient Temp 67 mmHg (65-108) Arterial Blood HCO3 33 mmol/L (21-28) H Arterial Blood Base Excess 5 mmol/L (-3-3) H FiO2 32.0 Sodium Level 140 mmol/L (136-145) Potassium Level 5.1 mmol/L (3.5-5.1) Chloride Level 99 mmol/L (98-107) Carbon Dioxide Level 35 mmol/L (21-32) H Anion Gap 6 (6-14) Blood Urea Nitrogen 12 mg/dL (7-20) Creatinine 1.0 mg/dL (0.6-1.0) Estimated GFR (Cockcroft-Gault) 53.6 BUN/Creatinine Ratio 12 (6-20) Glucose Level 161 mg/dL (70-99) H Lactic Acid Level 1.5 mmol/L (0.4-2.0) Calcium Level 8.4 mg/dL (8.5-10.1) L Total Bilirubin 0.3 mg/dL (0.2-1.0) Aspartate Amino Transferase (AST) 22 U/L (15-37) Alanine Aminotransferase (ALT) 24 U/L (14-59) Alkaline Phosphatase 90 U/L (46-116) Creatine Kinase 20 U/L (26-192) L Creatine Kinase MB (Mass) < 0.5 ng/mL (0.0-3.6) Creatine Kinase MB Relative Index % (0-4) Troponin I Quantitative 0.032 ng/mL (0.000-0.055) ZB-Yio-M-Type Natriuretic Peptide 3761 pg/mL (0-449) H Total Protein 7.1 g/dL (6.4-8.2) Albumin 2.6 g/dL (3.4-5.0) L Albumin/Globulin Ratio 0.6 (1.0-1.7) L Laboratory Tests 02/05/17 09:05 Laboratory Tests 02/05/17 09:55 EKG EKG Interpreted by me: Heart rate 128, atrial fibrillation, leftward axis, no acute ST/T-wave abnormalities present[] Radiology/Procedures Radiology/Procedures [facility] [address] [place], [place] [id number] IMAGING REPORT Signed PATIENT: JOSE VALENTINE ACCOUNT: [id number] : 1940 LOCATION: ER AGE: 76 SEX: F EXAM STATUS: PRE ER ORD. PHYSICIAN: NASIR SHIN MD REASON: fever, shortness of breath PROCEDURE: PORTABLE CHEST 1V Portable chest, 02/05/2017: History: Fever, shortness of breath Comparison is made to yesterday's study. The patient is rotated to the right. The heart is mildly enlarged. The pulmonary vascularity remains prominent.. There appears to be persistent atelectasis/infiltrate in the right base. A prominent epicardial fat pad accentuated by patient rotation may be contributing to this appearance. No pleural fluid is evident. No new abnormality is seen. IMPRESSION: 1. Cardiomegaly with mild vascular congestion. 2. Ongoing mild right basilar atelectasis/infiltrate. DICTATED and SIGNED BY: LEXY MARK MD DATE: 02/05/17 0928 CC: NASIR SHIN MD; DARIUS MELÉNDEZ MD ~ [] Course & Med Decision Making Course & Med Decision Making Pertinent Labs and Imaging studies reviewed. (See chart for details) Patient initially started on DuoNeb treatments. The patient's ABG shows a decompensated respiratory acidosis. Patient thus was started on BiPAP therapy. Chest x-ray shows evidence of fluid on the lungs though also consideration includes superimposed pneumonia given the patient's fever. Patient also started on Merrem, vancomycin, and Levaquin for coverage of healthcare associated pneumonia. The patient also shows evidence of redness and swelling at the left TKA site and will need evaluation by orthopedic surgery for possible source of infection. A consult was placed to Dr. Mendes, the patient's orthopedic surgeon , to follow with patient in hospital. I spoke with patient's window cleaner, Dr. Taveras, who agreed with initiation of dobutamine in the emergency department. Patient was treated with a 30 mL per kilo bolus of IV fluids due to low blood pressures and suspected sepsis. This was dosed at the patient's ideal body weight and was given over 3 hours. I also spoke with Dr. Jacques of pulmonology who will follow with patient and continue BiPAP management in hospital. Patient admitted to Dr. Meléndez. Critical care time excluding procedures: 50 minutes Dragon Disclaimer Dragon Disclaimer This electronic medical record was generated, in whole or in part, using a voice recognition dictation system. Departure Departure Impression: Primary Impression: Acute on chronic respiratory failure Additional Impressions: Healthcare-associated pneumonia Sepsis Acute on chronic congestive heart failure Urinary tract infection Severe protein-calorie malnutrition COPD (chronic obstructive pulmonary disease) Morbid obesity Disposition: ADMITTED INPATIENT Admitting Physician: Darius Meléndez Condition: CRITICAL Referrals: DARIUS MELÉNDEZ MD (PCP) Problem Qualifiers Primary Impression: Acute on chronic respiratory failure Respiratory failure complication: hypercapnia Qualified Codes: J96.22 - Acute and chronic respiratory failure with hypercapnia Additional Impressions: Sepsis Sepsis type: sepsis due to unspecified organism Qualified Codes: A41.9 - Sepsis, unspecified organism Acute on chronic congestive heart failure Congestive heart failure type: unspecified congestive heart failure type Qualified Codes: I50.9 - Heart failure, unspecified Urinary tract infection Urinary tract infection type: site unspecified Hematuria presence: without hematuria Qualified Codes: N39.0 - Urinary tract infection, site not specified COPD (chronic obstructive pulmonary disease) COPD type: COPD with acute exacerbation Qualified Codes: J44.1 - Chronic obstructive pulmonary disease with (acute) exacerbation NASIR SHIN MD Feb 05, 2017 09:12
[2017-02-05] MEDS ORDERED: IPRATRPIUM/ALBUTEROL 0.5/2.5MG 3 ML NEBU. NEB ONE (09:15)
[2017-02-05] MEDS: IV NORMAL SALINE 1000ML BAG 1,000 ML IV SCH ×4 (09:20→16:24)
[2017-02-05 09:22] LABS: BASO % 0 % (0-3); EOS % 0 % (0-3); HEMATOCRIT 29.8 % (36.0-47.0); HEMOGLOBIN 9.6 g/dL (12.0-15.5); LYMPH # 0.2 x10^3/uL (1.0-4.8); LYMPH % 3 % (24-48); MEAN CORPUSCULAR HEMOGLOBIN 29 pg (25-35); MEAN CORPUSCULAR HGB CONC 32 g/dL (31-37); MEAN CORPUSCULAR VOLUME 88 fL (79-100); MONO % 7 % (0-9); NEUT % 90 % (31-73); PLATELET COUNT 333 x10^3/uL (140-400); RED BLOOD COUNT 3.37 x10^6/uL (3.50-5.40); RED CELL DISTRIBUTION WIDTH 18.2 % (11.5-14.5); WHITE BLOOD COUNT 8.2 x10^3/uL (4.0-11.0)
--- NOTE | 2017-02-05 09:34 | RAD ---
Portable chest, 02/05/2017: History: Fever, shortness of breath Comparison is made to yesterday's study. The patient is rotated to the right. The heart is mildly enlarged. The pulmonary vascularity remains prominent.. There appears to be persistent atelectasis/infiltrate in the right base. A prominent epicardial fat pad accentuated by patient rotation may be contributing to this appearance. No pleural fluid is evident. No new abnormality is seen. IMPRESSION: 1. Cardiomegaly with mild vascular congestion. 2. Ongoing mild right basilar atelectasis/infiltrate.
[2017-02-05 09:39] LABS: HCO3 ABG 33 mmol/L (21-28); PO2 ABG 67 mmHg (65-108); SAT O2 ABG 91 % (92-99)
[2017-02-05 09:42] LABS: PCO2 ABG 69 mmHg (35-46)
[2017-02-05 10:31] LABS: OBC FLU VALID
[2017-02-05 10:37] LABS: CALCIUM 8.4 mg/dL (8.5-10.1); GFR 53.6; POTASSIUM 5.1 mmol/L (3.5-5.1)
[2017-02-05 10:43] LABS: ALBUMIN 2.6 g/dL (3.4-5.0); ALBUMIN/GLOBULIN RATIO 0.6 (1.0-1.7); TOTAL BILIRUBIN 0.3 mg/dL (0.2-1.0); TOTAL PROTEIN 7.1 g/dL (6.4-8.2)
[2017-02-05 10:53] LABS: CKMB MASS < 0.5 ng/mL (0.0-3.6); CREATINE KINASE 20 U/L (26-192)
--- NOTE | 2017-02-05 11:05 | EKG ---
[facility] [address] [place] [address] Test Date: 2017-02-05 Test Time: 08:45:01 Pat Name: JOSE VALENTINE Department: Room: Gender: Female Composition [employer] Applier: : 1940 Requested By: NASIR SHIN Order Number: [id number] Reading MD: James Rolle MD Measurements Intervals [place] Rate: 128 P: [place]: QRS: -24 QRSD: 98 T: 146 QT: 306 QTc: 450 Interpretive Statements ATRIAL FIB./FLUTTER WITH RAPID VENTRICULAR RESPONSE Electronically Signed On 02-09-2017 14:51:59 [employer] by James Rolle MD
[2017-02-05] MEDS ORDERED: levOFLOXacin PER PHARMACY. MC PRN (11:30)
[2017-02-05 11:43] LABS: ANISOCYTOSIS SLIGHT; OVALOCYTES FEW; PLT ESTIMATE ADEQUATE (ADEQUATE); POLYCHROMASIA SLIGHT; TEAR DROP CELLS OCC
[2017-02-05] MEDS ORDERED: methylPREDNISolone SOD SUCC PF 125 MG/2 ML VIAL. IV ONE (11:45)
[2017-02-05] MEDS ORDERED: ONDANSETRON PF 4 MG/2 ML VIAL. IV PRN (12:00)
[2017-02-05] MEDS ORDERED: DOBUTAMINE IV SCH (12:00)
[2017-02-05] MEDS ORDERED: VANCOMYCIN 2 GM in IV DEXTROSE 5% 500 ML IV ONE (12:00)
[2017-02-05] MEDS ORDERED: DEXTROSE 5% IV SCH (12:00)
[2017-02-05] MEDS ORDERED: ACETAMINOPHEN 325 MG TABLET. PO PRN (12:00)
[2017-02-05] MEDS ORDERED: MEROPENEM IV Push 1 GM VIAL. IVP ONE (12:00)
[2017-02-05 12:01] LABS: BILIRUBIN,URINE NEGATIVE (NEG); GLUCOSE,URINE NEGATIVE (NEG); NITRITE,URINE POSITIVE (NEG); PROTEIN,URINE 100 mg/dL (NEG-TRACE); UROBILINOGEN,URINE 0.2 mg/dL (0.2 mg/dL)
[2017-02-05 12:09] LABS: SQUAMOUS EPITHELIAL CELL,UR MANY /LPF
[2017-02-05 12:10] LABS: BACTERIA,URINE MANY /HPF (0-FEW)
--- NOTE | 2017-02-05 12:26 | PDOC ---
Infectious Disease Note Vital Sign Vital Signs Vital Signs Date Time Temp Pulse Resp B/P (MAP) Pulse Ox O2 Delivery O2 Flow Rate FiO2 02/05/17 12:07 107 22 112/60 (77) 100 BiPAP/CPAP 02/05/17 09:37 3.0 02/05/17 08:47 100.3 100.3 Labs Lab Laboratory Tests Test 02/05/17 09:05 02/05/17 09:10 02/05/17 09:30 02/05/17 09:55 White Blood Count 8.2 x10^3/uL (4.0-11.0) Red Blood Count 3.37 x10^6/uL (3.50-5.40) Hemoglobin 9.6 g/dL (12.0-15.5) Hematocrit 29.8 % (36.0-47.0) Mean Corpuscular Volume 88 fL (79-100) Mean Corpuscular Hemoglobin 29 pg (25-35) Mean Corpuscular Hemoglobin Concent 32 g/dL (31-37) Red Cell Distribution Width 18.2 % (11.5-14.5) Platelet Count 333 x10^3/uL (140-400) Neutrophils (%) (Auto) 90 % (31-73) Lymphocytes (%) (Auto) 3 % (24-48) Monocytes (%) (Auto) 7 % (0-9) Eosinophils (%) (Auto) 0 % (0-3) Basophils (%) (Auto) 0 % (0-3) Neutrophils # (Auto) 7.4 x10^3uL (1.8-7.7) Lymphocytes # (Auto) 0.2 x10^3/uL (1.0-4.8) Monocytes # (Auto) 0.5 x10^3/uL (0.0-1.1) Eosinophils # (Auto) 0.0 x10^3/uL (0.0-0.7) Basophils # (Auto) 0.0 x10^3/uL (0.0-0.2) Segmented Neutrophils % 86 % (35-66) Band Neutrophils % 4 % (0-9) Lymphocytes % 4 % (24-48) Monocytes % 6 % (0-10) Platelet Estimate Adequate (ADEQUATE) Polychromasia Slight Anisocytosis Slight Tear Drop Cells Occ Ovalocytes Few Influenza Type A Antigen Negative (NEGATIVE) Influenza Type B Antigen Negative (NEGATIVE) O2 Saturation 91 % (92-99) Arterial Blood pH 7.30 (7.35-7.45) Arterial Blood pCO2 at Patient Temp 69 mmHg (35-46) Arterial Blood pO2 at Patient Temp 67 mmHg (65-108) Arterial Blood HCO3 33 mmol/L (21-28) Arterial Blood Base Excess 5 mmol/L (-3-3) FiO2 32.0 Sodium Level 140 mmol/L (136-145) Potassium Level 5.1 mmol/L (3.5-5.1) Chloride Level 99 mmol/L (98-107) Carbon Dioxide Level 35 mmol/L (21-32) Anion Gap 6 (6-14) Blood Urea Nitrogen 12 mg/dL (7-20) Creatinine 1.0 mg/dL (0.6-1.0) Estimated GFR (Cockcroft-Gault) 53.6 BUN/Creatinine Ratio 12 (6-20) Glucose Level 161 mg/dL (70-99) Lactic Acid Level 1.5 mmol/L (0.4-2.0) Calcium Level 8.4 mg/dL (8.5-10.1) Total Bilirubin 0.3 mg/dL (0.2-1.0) Aspartate Amino Transf (AST/SGOT) 22 U/L (15-37) Alanine Aminotransferase (ALT/SGPT) 24 U/L (14-59) Alkaline Phosphatase 90 U/L (46-116) Creatine Kinase 20 U/L (26-192) Creatine Kinase MB (Mass) < 0.5 ng/mL (0.0-3.6) Creatine Kinase MB Relative Index % (0-4) Troponin I Quantitative 0.032 ng/mL (0.000-0.055) AC-Znt-J-Type Natriuretic Peptide 3761 pg/mL (0-449) Total Protein 7.1 g/dL (6.4-8.2) Albumin 2.6 g/dL (3.4-5.0) Albumin/Globulin Ratio 0.6 (1.0-1.7) Test 02/05/17 11:50 Urine Collection Type U cath Urine Color Yellow Urine Clarity Turbid Urine pH 6.0 Urine Specific [place] 1.020 Urine Protein 100 mg/dL (NEG-TRACE) Urine Glucose (UA) Negative mg/dL (NEG) Urine Ketones (Stick) Negative mg/dL (NEG) Urine Blood Small (NEG) Urine Nitrite Positive (NEG) Urine Bilirubin Negative (NEG) Urine Urobilinogen Dipstick 0.2 mg/dL (0.2 mg/dL) Urine Leukocyte Esterase Small (NEG) Urine RBC 3-5 /HPF (0-2) Urine WBC 11-20 /HPF (0-4) Urine Squamous Epithelial Cells Many /LPF Urine Amorphous Sediment Present /HPF Urine Bacteria Many /HPF (0-FEW) Urine Mucus Marked /LPF Objective Assessment Respiratory failure Pneumonia Left knee and leg cellulitis, ? TKA infection Obesity Fever COPD Plan Plan of Care vanc, meropenem and levaquin supportive care mei culture d/w daughter in law ortho to decide aspiration of knee ERA HERNANDEZ MD Feb 05, 2017 12:26
[2017-02-05] MEDS: VANCOMYCIN PER PHARMACY MC PRN (13:50)
[2017-02-05] MEDS ORDERED: MEROPENEM 1 GM in IV NORMAL SALINE 100ML 100 ML IV SCH (14:00)
[2017-02-05] MEDS: IPRATRPIUM/ALBUTEROL 0.5/2.5MG 3 ML NEBU. NEB SCH ×2 (15:30→20:56)
[2017-02-05] MEDS ORDERED: ENOXAPARIN 40 MG/0.4 ML SYRINGE. SQ SCH (16:00)
--- NOTE | 2017-02-05 16:07 | CONS ---
DATE OF CONSULTATION: ATTENDING PHYSICIAN: Dr. Meléndez. REASON FOR CONSULTATION: 1. Respiratory failure and pneumonia. 2. Sepsis. HISTORY OF PRESENT ILLNESS: The patient is a 76-year-old female with history of chronic obstructive airway disease, on p.r.n. oxygen and history of obesity hypoventilation syndrome and possible cor pulmonale. She was at the half-way after she was recovering from her knee surgery. The patient was brought into the hospital with complaint of cough and also some fever along with shortness of breath. The patient was also lethargic as well and reportedly had a temperature at the half-way. EMS was called, and she was brought into the ER at [facility] where she was lethargic. Her temperature was 100.3 degrees Fahrenheit. Her chest x-ray was reviewed by me, and there was a new right lower lobe infiltrate and also mild retrocardiac atelectasis as well. There is some prominent interstitial marking, but they were present in October as well. The patient's arterial blood gases revealed a pH of 7.30, pCO2 of 69, a pO2 of 67, with a bicarbonate of 33 on 32% FiO2. She was placed on BiPAP. The patient's albumin level is 2.6. She became hypotensive in the ER. Her lactic acid is 1.5. Currently, she is not requiring any vasopressors. She was started on vancomycin and Levaquin. I have been asked to see her for further evaluation. She is arousable while on BiPAP. Her family is at the bedside. PAST MEDICAL HISTORY: Significant for history of AFib, CHF, COPD, type 2 diabetes, dyslipidemia, hypertension. PAST SURGICAL HISTORY: Cholecystectomy, coronary artery bypass surgery, gastric bypass, hysterectomy, knee replacement, cervical laminectomy and bilateral knee. ALLERGIES: SEAN INHIBITORS, IODINE, PENICILLIN, SULFA AND TRIMETHOPRIM. REVIEW OF SYSTEMS: Unable to obtain from the patient as she is lethargic but arousable. MEDICATIONS: All reviewed as listed in the MRAD. SOCIAL HISTORY: Long history of tobacco use before quitting. She is currently at [facility]. PHYSICAL EXAMINATION: GENERAL: She is arousable while on BiPAP. VITAL SIGNS: Blood pressure latest 98 systolic. Temperature 100.3, pulse ox is 99% on 40% BiPAP. HEENT: Sclerae nonicteric. NECK: Supple. LUNGS: Diminished breath sounds with anterior wheezing. CARDIOVASCULAR: Regular rate. ABDOMEN: Soft, obese. EXTREMITIES: With 3+ bilateral pitting edema and signs of venous stasis. LABORATORY DATA: Reviewed. BUN 12, creatinine 1.0. ProBNP is 3761. Albumin is 2.6. ABGs as discussed in history of present illness. White cell count 8.2, hemoglobin 9.6 and platelets are 333. IMPRESSION: 1. Acute on chronic hypercapnic respiratory failure secondary to multifactorial etiologies including combination of sepsis, healthcare-associated pneumonia, worsening hypercapnia related to narcotic use as well and chronic obstructive pulmonary disease exacerbation, underlying JAYLIN/OHS. 2. Sepsis syndrome with fever and altered mental status. 3. Clinically, less likely congestive heart failure. 4. History of underlying chronic obstructive pulmonary disease with cor pulmonale and suspected obesity hypoventilation syndrome. 5. Moderate to severe protein-calorie malnutrition. 6. Abnormal chest x-ray with a right lower lobe infiltrate and possible retrocardiac infiltrate as well. The interstitial markings are slightly prominent, but they were present in October as well, and clinically, I do not think of congestive heart failure, more likely pneumonia. RECOMMENDATIONS: 1. Continue with present BiPAP. I have increased the IPAP and respiratory rate. 2. Follow ABGs and make changes as needed. 3. Broad spectrum antibiotics to cover for gram-negative and gram-positive pneumonia. 4. IV hydration if needed to correct her systolic blood pressure and follow sepsis protocol. 5. Vasopressor if needed. 6. Discontinue dobutamine. Last EF normal. 7. Broad spectrum antibiotic. 8. Follow all cultures. 9. Hold off any diuretics at present. 10. Improve nutritional status. 11. Discussed with patient's family. Discussed with RN and RT and will follow along with you. Critical care time 39 minutes. ALYSSA SLADE MD DR: JACKIE/melva JOB#: [id number] / [id number] ZOILA
[2017-02-05] MEDS: methylPREDNISolone SOD SUCC PF 40 MG/ML VIAL. IV SCH ×2 (16:24→21:57)
--- NOTE | 2017-02-05 17:07 | PDOC2 ---
CONSULT Date of Consult Date of Consult DATE: 02/05/17 TIME: 16:57 Reason for Consult Reason for Consult: Dyspnea Referring Physician Referring Physician: Dr Meléndez Identification/Chief Complaint Chief Complaint Cough and dyspnea Problems: History of Present Illness Reason for Visit: This patient is a very nice 76-year-old lady that I have taken care of in the past. She had a recent knee surgery and was at a snf facility doing rehabilitation. While there the patient has had some fevers and she started developing dyspnea and cough. She was brought into the emergency room due to her being on respiratory distress. The patient was seen and evaluated in the ER and he was decided to admit her for further care. At the time that I saw her she was on a BiPAP but was alert and responsive. She denied having any chest pains or palpitations. The patient has a known history of COPD, valvular heart disease with aortic stenosis, pulmonary hypertension, diabetes, and she's had coronary artery disease and previous CABG. The patient is in atrial fibrillation. Past Medical History Cardiovascular: AFIB, CAD, CHF, HTN Pulmonary: COPD Psych: Anxiety Musculoskeletal: Other Endocrine: Diabetes Past Surgical History Past Surgical History: Appendectomy, Cholecystectomy, CABG, Tonsillectomy, Hysterectomy Family History Family History: No Significant Social History ALCOHOL: none Drugs: None Lives: Alone Current Problem List Problem List Problems Medical Problems: (1) Acute on chronic congestive heart failure Status: Acute (2) COPD (chronic obstructive pulmonary disease) Status: Acute (3) Healthcare-associated pneumonia Status: Acute (4) Morbid obesity Status: Acute (5) Sepsis Status: Acute (6) Severe protein-calorie malnutrition Status: Acute (7) Urinary tract infection Status: Acute Current Medications Current Medications Current Medications Sodium Chloride 1,000 ml @ 620 mls/hr Q1H37M IV Last administered on 10:43; Start 02/05/17 at 09:05; Stop 02/05/17 at 12:05; Status DC Albuterol/ Ipratropium (Duoneb) 6 ml 1X ONCE NEB Last administered on 09:18; Start 02/05/17 at 09:15; Stop 02/05/17 at 09:16; Status DC Meropenem 1 gm/ Sodium Chloride 100 ml @ 200 mls/hr Q8HRS IV ; Start 02/05/17 at 14:00; Status UNV Vancomycin HCl (Vanco Per Pharmacy) 1 each PRN DAILY PRN MC SEE COMMENTS Last administered on 02/05/17 13:50; Start 02/05/17 at 11:30 Levofloxacin/ Dextrose (Levaquin Per Pharmacy) 1 each PRN DAILY PRN MC SEE COMMENTS; Start 02/05/17 at 11:30 Vancomycin HCl 2 gm/Dextrose 500 ml @ 250 mls/hr 1X ONCE IV Last administered on 02/05/17 13:20; Start 02/05/17 at 12:00; Stop 02/05/17 at 13 :59; Status DC Meropenem (Merrem) 1 gm 1X ONCE IVP Last administered on 02/05/17 11:37; Start 02/05/17 at 12:00; Stop 02/05/17 at 12:01; Status DC Levofloxacin/ Dextrose 150 ml @ 100 mls/hr 1X ONCE IV Last administered on 11:38; Start 02/05/17 at 12:00; Stop 02/05/17 at 13:29; Status DC Methylprednisolone Sodium Succinate (SOLU-Medrol 125MG VIAL) 125 mg 1X ONCE IV Last administered on 02/05/17 12:06; Start 02/05/17 at 11:45; Stop at 11:59; Status DC Ondansetron HCl (Zofran) 4 mg PRN Q8HRS PRN IV NAUSEA/VOMITING; Start at 12:00; Stop 02/06/17 at 11:59 Sodium Chloride 1,000 ml @ 75 mls/hr [id number] IV Last administered on 16:24; Start 02/05/17 at 11:46; Stop 02/06/17 at 11:45 Acetaminophen (Tylenol) 650 mg PRN Q4HRS PRN PO FEVER; Start 02/05/17 at 12:00 ; Stop 02/06/17 at 11:59 Albuterol/ Ipratropium (Duoneb) 3 ml RTQID NEB Last administered on 02/05/17 15:30; Start 02/05/17 at 12:00; Stop 02/06/17 at 11:59 Dobutamine HCl 2000 mg/Dextrose 250 ml @ 4.59 mls/hr CONT IV ; Start 02/05/17 at 12:00; Stop 02/05/17 at 13:17; Status DC Dobutamine HCl/ Dextrose 250 ml @ 18.375 mls/ hr CONT PRN IV SEE I/O RECORD; Start 02/05/17 at 13:15 Meropenem (Merrem) 1 gm Q8HRS IVP ; Start 02/05/17 at 21:00 Levofloxacin/ Dextrose 150 ml @ 100 mls/hr Q24H IV ; Start 02/06/17 at 12:00 Vancomycin HCl 1.75 gm/Dextrose/ Sodium Chloride 500 ml @ 250 mls/hr Q18H IV ; Start 02/06/17 at 07:00 Vancomycin HCl 1 each 1X ONCE MC ; Start 02/07/17 at 00:30; Stop 02/07/17 at 00:31 Methylprednisolone Sodium Succinate (SOLU-Medrol 40MG VIAL) 40 mg Q8HRS IV Last administered on 02/05/17t 16:24; Start 02/05/17 at 16:00 Enoxaparin Sodium (Lovenox 40mg Syringe) 40 mg Q24H SQ Last administered on t 16:24; Start 02/05/17 at 16:00 Active Scripts Active Reported Ferrous Sulfate 325 Mg Tablet 1 Tab PO BID LAST DOSE GIVEN: DATE:01/08/17 TIME:9:00 a.m. Warfarin Sodium 5 Mg Tablet 1 Tab PO DAILY 30 Days LAST DOSE GIVEN: DATE:01/08/17 TIME:2:00 p.m Levothyroxine Sodium 137 Mcg Tablet 137 Mcg PO DAILYAC LAST DOSE GIVEN: DATE:01/08/17 TIME:7:30 a.m. Furosemide 40 Mg Tablet 40 Mg PO DAILY LAST DOSE GIVEN: DATE:01/07/17 TIME:9:00 a.m. Aspirin 81 Mg Tab.chew 1 Tab PO DAILY LAST DOSE GIVEN: DATE:01/08/17 TIME:9:00 a.m. Hydrocodone-Apap 7.5-325 (Hydrocodone Bit/Acetaminophen) 1 Each Tablet 1-2 Tab PO PRN Q6HRS PRN Took at 12:30 today may take anytime as needed for pain every 4 hours Amaryl (Glimepiride) 4 Mg Tablet 1 Tab PO BID LAST DOSE GIVEN: DATE:01/08/17 TIME:9:00 a.m. Potassium Chloride 20 Meq Tab.er.prt 1 Tab PO WEEKLY Meds not given this hospital admission. May resume home medications as approved by Physician. TIME: 8:30 a.m. NEXT DOSE DUE: DATE: 12-28-15 TIME: 8:30 a.m. Metolazone 5 Mg Tablet 5 Mg PO WEEKLY Meds not given this hospital admission. May resume home medications as approved by Physician. TIME: 8:30 a.m. NEXT DOSE DUE: DATE: 12-28-15 TIME: 8:30 a.m. Lexapro (Escitalopram Oxalate) 10 Mg Tablet 20 Mg PO DAILY LAST DOSE GIVEN: DATE:01/08/17 TIME:9:00 a.m. NEXT DOSE DUE: DATE: 12-28-15 TIME: 8:30 a.m. Cardizem Cd (Diltiazem Hcl) 240 Mg Cap.er.24h 120 Mg PO HS LAST DOSE GIVEN: DATE:01/07/17 TIME:9:00 p.m. NEXT DOSE DUE: DATE: 12-27-15 TIME: 9:00 p.m. Losartan Potassium 100 Mg Tablet 25 Mg PO DAILY LAST DOSE GIVEN: DATE:01/07/17 TIME:9:00 a.m. Crestor (Rosuvastatin Calcium) 40 Mg Tablet 40 Mg PO QHS LAST DOSE GIVEN: DATE:01/07/17 TIME:9:00 p.m. NEXT DOSE DUE: DATE: 12-27-15 TIME: 9:00 p.m. Allergies Allergies: Coded Allergies: SEAN Inhibitors (Verified Allergy, Intermediate, 02/02/17) Iodinated Contrast- Oral and IV Dye (Verified Allergy, Intermediate, 02/02) Penicillins (Verified Allergy, Intermediate, 02/02/17) sulfamethoxazole (Verified Allergy, Intermediate, 02/02/17) trimethoprim (Verified Allergy, Intermediate, 02/02/17) Physical Exam General: Alert, Cooperative HEENT: PERRLA Lungs: Other (markedly decreased breath sounds, coarse and fine crackles present.) Heart: Other (irregularly irregular S1 and S2, no changes in systolic murmur) Abdomen: Normal bowel sounds, Soft Extremities: Other (2+ edema with chronic stasis changes) Vitals VITALS Vital Signs Date Time Temp Pulse Resp B/P (MAP) Pulse Ox O2 Delivery O2 Flow Rate FiO2 02/05/17 15:31 99 BiPAP/CPAP 02/05/17 13:07 115 22 98/63 (75) 02/05/17 09:37 3.0 02/05/17 08:47 100.3 100.3 Labs Labs Laboratory Tests Test 02/05/17 09:05 02/05/17 09:10 02/05/17 09:30 02/05/17 09:55 White Blood Count 8.2 x10^3/uL (4.0-11.0) Red Blood Count 3.37 x10^6/uL (3.50-5.40) Hemoglobin 9.6 g/dL (12.0-15.5) Hematocrit 29.8 % (36.0-47.0) Mean Corpuscular Volume 88 fL (79-100) Mean Corpuscular Hemoglobin 29 pg (25-35) Mean Corpuscular Hemoglobin Concent 32 g/dL (31-37) Red Cell Distribution Width 18.2 % (11.5-14.5) Platelet Count 333 x10^3/uL (140-400) Neutrophils (%) (Auto) 90 % (31-73) Lymphocytes (%) (Auto) 3 % (24-48) Monocytes (%) (Auto) 7 % (0-9) Eosinophils (%) (Auto) 0 % (0-3) Basophils (%) (Auto) 0 % (0-3) Neutrophils # (Auto) 7.4 x10^3uL (1.8-7.7) Lymphocytes # (Auto) 0.2 x10^3/uL (1.0-4.8) Monocytes # (Auto) 0.5 x10^3/uL (0.0-1.1) Eosinophils # (Auto) 0.0 x10^3/uL (0.0-0.7) Basophils # (Auto) 0.0 x10^3/uL (0.0-0.2) Segmented Neutrophils % 86 % (35-66) Band Neutrophils % 4 % (0-9) Lymphocytes % 4 % (24-48) Monocytes % 6 % (0-10) Platelet Estimate Adequate (ADEQUATE) Polychromasia Slight Anisocytosis Slight Tear Drop Cells Occ Ovalocytes Few Influenza Type A Antigen Negative (NEGATIVE) Influenza Type B Antigen Negative (NEGATIVE) O2 Saturation 91 % (92-99) Arterial Blood pH 7.30 (7.35-7.45) Arterial Blood pCO2 at Patient Temp 69 mmHg (35-46) Arterial Blood pO2 at Patient Temp 67 mmHg (65-108) Arterial Blood HCO3 33 mmol/L (21-28) Arterial Blood Base Excess 5 mmol/L (-3-3) FiO2 32.0 Sodium Level 140 mmol/L (136-145) Potassium Level 5.1 mmol/L (3.5-5.1) Chloride Level 99 mmol/L (98-107) Carbon Dioxide Level 35 mmol/L (21-32) Anion Gap 6 (6-14) Blood Urea Nitrogen 12 mg/dL (7-20) Creatinine 1.0 mg/dL (0.6-1.0) Estimated GFR (Cockcroft-Gault) 53.6 BUN/Creatinine Ratio 12 (6-20) Glucose Level 161 mg/dL (70-99) Lactic Acid Level 1.5 mmol/L (0.4-2.0) Calcium Level 8.4 mg/dL (8.5-10.1) Total Bilirubin 0.3 mg/dL (0.2-1.0) Aspartate Amino Transf (AST/SGOT) 22 U/L (15-37) Alanine Aminotransferase (ALT/SGPT) 24 U/L (14-59) Alkaline Phosphatase 90 U/L (46-116) Creatine Kinase 20 U/L (26-192) Creatine Kinase MB (Mass) < 0.5 ng/mL (0.0-3.6) Creatine Kinase MB Relative Index % (0-4) Troponin I Quantitative 0.032 ng/mL (0.000-0.055) NP-Twu-L-Type Natriuretic Peptide 3761 pg/mL (0-449) Total Protein 7.1 g/dL (6.4-8.2) Albumin 2.6 g/dL (3.4-5.0) Albumin/Globulin Ratio 0.6 (1.0-1.7) Test 02/05/17 11:50 Urine Collection Type U cath Urine Color Yellow Urine Clarity Turbid Urine pH 6.0 Urine Specific [place] 1.020 Urine Protein 100 mg/dL (NEG-TRACE) Urine Glucose (UA) Negative mg/dL (NEG) Urine Ketones (Stick) Negative mg/dL (NEG) Urine Blood Small (NEG) Urine Nitrite Positive (NEG) Urine Bilirubin Negative (NEG) Urine Urobilinogen Dipstick 0.2 mg/dL (0.2 mg/dL) Urine Leukocyte Esterase Small (NEG) Urine RBC 3-5 /HPF (0-2) Urine WBC 11-20 /HPF (0-4) Urine Squamous Epithelial Cells Many /LPF Urine Amorphous Sediment Present /HPF Urine Bacteria Many /HPF (0-FEW) Urine Mucus Marked /LPF Laboratory Tests Test 02/05/17 09:05 02/05/17 09:10 02/05/17 09:30 02/05/17 09:55 White Blood Count 8.2 x10^3/uL (4.0-11.0) Red Blood Count 3.37 x10^6/uL (3.50-5.40) Hemoglobin 9.6 g/dL (12.0-15.5) Hematocrit 29.8 % (36.0-47.0) Mean Corpuscular Volume 88 fL (79-100) Mean Corpuscular Hemoglobin 29 pg (25-35) Mean Corpuscular Hemoglobin Concent 32 g/dL (31-37) Red Cell Distribution Width 18.2 % (11.5-14.5) Platelet Count 333 x10^3/uL (140-400) Neutrophils (%) (Auto) 90 % (31-73) Lymphocytes (%) (Auto) 3 % (24-48) Monocytes (%) (Auto) 7 % (0-9) Eosinophils (%) (Auto) 0 % (0-3) Basophils (%) (Auto) 0 % (0-3) Neutrophils # (Auto) 7.4 x10^3uL (1.8-7.7) Lymphocytes # (Auto) 0.2 x10^3/uL (1.0-4.8) Monocytes # (Auto) 0.5 x10^3/uL (0.0-1.1) Eosinophils # (Auto) 0.0 x10^3/uL (0.0-0.7) Basophils # (Auto) 0.0 x10^3/uL (0.0-0.2) Segmented Neutrophils % 86 % (35-66) Band Neutrophils % 4 % (0-9) Lymphocytes % 4 % (24-48) Monocytes % 6 % (0-10) Platelet Estimate Adequate (ADEQUATE) Polychromasia Slight Anisocytosis Slight Tear Drop Cells Occ Ovalocytes Few Influenza Type A Antigen Negative (NEGATIVE) Influenza Type B Antigen Negative (NEGATIVE) O2 Saturation 91 % (92-99) Arterial Blood pH 7.30 (7.35-7.45) Arterial Blood pCO2 at Patient Temp 69 mmHg (35-46) Arterial Blood pO2 at Patient Temp 67 mmHg (65-108) Arterial Blood HCO3 33 mmol/L (21-28) Arterial Blood Base Excess 5 mmol/L (-3-3) FiO2 32.0 Sodium Level 140 mmol/L (136-145) Potassium Level 5.1 mmol/L (3.5-5.1) Chloride Level 99 mmol/L (98-107) Carbon Dioxide Level 35 mmol/L (21-32) Anion Gap 6 (6-14) Blood Urea Nitrogen 12 mg/dL (7-20) Creatinine 1.0 mg/dL (0.6-1.0) Estimated GFR (Cockcroft-Gault) 53.6 BUN/Creatinine Ratio 12 (6-20) Glucose Level 161 mg/dL (70-99) Lactic Acid Level 1.5 mmol/L (0.4-2.0) Calcium Level 8.4 mg/dL (8.5-10.1) Total Bilirubin 0.3 mg/dL (0.2-1.0) Aspartate Amino Transf (AST/SGOT) 22 U/L (15-37) Alanine Aminotransferase (ALT/SGPT) 24 U/L (14-59) Alkaline Phosphatase 90 U/L (46-116) Creatine Kinase 20 U/L (26-192) Creatine Kinase MB (Mass) < 0.5 ng/mL (0.0-3.6) Creatine Kinase MB Relative Index % (0-4) Troponin I Quantitative 0.032 ng/mL (0.000-0.055) SS-Sfm-Y-Type Natriuretic Peptide 3761 pg/mL (0-449) Total Protein 7.1 g/dL (6.4-8.2) Albumin 2.6 g/dL (3.4-5.0) Albumin/Globulin Ratio 0.6 (1.0-1.7) Test 02/05/17 11:50 Urine Collection Type U cath Urine Color Yellow Urine Clarity Turbid Urine pH 6.0 Urine Specific [place] 1.020 Urine Protein 100 mg/dL (NEG-TRACE) Urine Glucose (UA) Negative mg/dL (NEG) Urine Ketones (Stick) Negative mg/dL (NEG) Urine Blood Small (NEG) Urine Nitrite Positive (NEG) Urine Bilirubin Negative (NEG) Urine Urobilinogen Dipstick 0.2 mg/dL (0.2 mg/dL) Urine Leukocyte Esterase Small (NEG) Urine RBC 3-5 /HPF (0-2) Urine WBC 11-20 /HPF (0-4) Urine Squamous Epithelial Cells Many /LPF Urine Amorphous Sediment Present /HPF Urine Bacteria Many /HPF (0-FEW) Urine Mucus Marked /LPF Assessment/Plan Assessment/Plan This patient comes in in acute respiratory failure requiring BiPAP at this point. Possible pneumonia. COPD exacerbation. Pulmonary hypertension She has mild aortic stenosis and diastolic dysfunction from a cardiac standpoint as well as chronic atrial fibrillation and coronary artery disease. I agree with the present plan. Thank you very much for asking me to participate in the care of this patient CRYSTAL ARCHULETA MD Feb 05, 2017 17:07
[2017-02-05 17:12] LABS: HCO3 ABG 30 mmol/L (21-28); PCO2 ABG 54 mmHg (35-46); PH ABG 7.36 (7.35-7.45); PO2 ABG 73 mmHg (65-108); SAT O2 ABG 94 % (92-99)
[2017-02-05 17:13] LABS: FIO2 ABG 40
[2017-02-05] MEDS: GLIMEPIRIDE 2 MG TABLET. PO SCH (17:30)
[2017-02-05] MEDS: INSULIN ASPART 300 UNITS/3 ML INSULN.PEN SQ SCH ×2 (18:00→21:05)
--- NOTE | 2017-02-05 18:19 | HP ---
ADMIT DATE: 02/05/2017 CHIEF COMPLAINT: Shortness of breath. HISTORY OF PRESENT ILLNESS AND HOSPITAL COURSE: This patient is a 76-year-old female who was at [facility] convalescing after left total knee revision. She was doing well until approximately 2 days prior to admission when she began having increasing shortness of breath. On the morning of admission, the patient's mental status began changing, she had low-grade fever. The patient was transferred to the Emergency Room for further evaluation. At this point, the patient was found to have low-grade heart failure and evidence of pneumonia. She also had evidence of increasing redness to her left lower extremity with possible septic and infected left total knee. Due to the severity of symptoms, she was admitted to the hospital for IV antibiotics. The patient also required BiPAP due to respiratory failure with oxygen support. PAST MEDICAL HISTORY: Significant for: 1. Recent total knee revision on 01/20/2017. 2. Hemorrhagic anemia, status post transfusion on approximately 02/01/2017. 3. History of diastolic congestive heart failure. 4. Type 2 diabetes. 5. Hypertension. 6. Chronic atrial fibrillation. 7. Hyperlipidemia. 8. Chronic obstructive pulmonary disease. 9. Aortic stenosis. 10. Obstructive sleep apnea. 11. Morbid obesity. 12. Hypothyroidism. 13. Generalized anxiety disorder with depression. 14. Rheumatoid arthritis. PAST SURGICAL HISTORY: Significant for gallbladder surgery in 1978, lumbar laminectomy in 1987, carpal tunnel release, total abdominal hysterectomy, coronary artery bypass graft in 2002, right total knee replacement in 2010, left total knee replacement in 2015 with revision in 12/2016. FAMILY HISTORY: Significant for mother who and had hypertension and a father who with COPD, a sister with diabetes. SOCIAL HISTORY: The patient is a former smoker. The patient only occasionally drinks. She is , has excellent support from her daughter. ALLERGIES: THE PATIENT EXHIBITS ALLERGIES TO SEAN INHIBITOR, SULFA, CONTRAST DYE AND PENICILLIN. REVIEW OF SYSTEMS: Significant for increasing shortness of breath and leg swelling over the last 48 hours. Denies chest pain, diarrhea, nausea, vomiting, cough, or congestion. PHYSICAL EXAMINATION: GENERAL: This is an obese female. She is sleepy and fatigued due to minimal sleep over the last 24 hours and now resting on BiPAP. HEENT: Benign grossly, minimal examination was done. CARDIAC: Irregularly irregular with a grade 2/3 systolic ejection murmur. LUNGS: Clear anteriorly with decreased breath sounds in the bases. ABDOMEN: Soft and nontender. EXTREMITIES: Showed 2+ pulses with redness about the left knee incision extending down towards the popliteal fossa and into the lateral quadriceps area. NEUROLOGIC: Showed no unilateral findings. ASSESSMENT AND PLAN: 1. Acute respiratory failure. 2. Acute on chronic diastolic congestive heart failure. 3. Possible hospital-acquired pneumonia. 4. Sepsis. 5. Chronic obstructive pulmonary disease with exacerbation. 6. Atrial fibrillation with rapid ventricular response. 7. Obstructive sleep apnea. 8. Aortic stenosis. 9. Morbid obesity. 10. Hypertension. 11. Type 2 diabetes. 12. Hypothyroidism. 13. Generalized anxiety disorder. 14. Severe protein-calorie malnutrition. 15. Urinary tract infection. PLAN: To admit the patient to ICU with consults to Pulmonary Medicine and Cardiology. Proceed with diuresis and O2 support via BiPAP. Start antibiotics and aggressive fluid resuscitation as needed with underlying overt congestive heart failure noted. Consult Orthopedics for evaluation of possible joint revision and infection. JUAN COOK MD DR: DELON/melva JOB#: [id number] / [id number]
[2017-02-05] MEDS ORDERED: NOREPINEPHRIN PREMIX 250 ML IV PRN (19:00)
[2017-02-05] MEDS ORDERED: IPRATRPIUM/ALBUTEROL 0.5/2.5MG 3 ML NEBU. ONE (19:16)
[2017-02-05 21:02] LABS: INR 1.9 (0.8-1.1); PROTHROMBIN TIME PATIENT 20.2 SEC (11.7-14.0)
[2017-02-05] MEDS: MEROPENEM IV Push 1 GM VIAL. IVP SCH ×2 (21:03→21:51)
[2017-02-05] MEDS: ATORVASTATIN CALCIUM 40 MG TABLET. PO SCH (21:04)
[2017-02-05] MEDS: FERROUS SULFATE 325 MG TABLET. PO SCH (21:04)
[2017-02-05] MEDS: WARFARIN 5 MG TABLET. PO SCH (21:58)
[2017-02-06] VITALS (24 sets, daily range): BP systolic 83–122; BP diastolic 45–84
--- NOTE | 2017-02-06 00:08 | CONS ---
DATE OF CONSULTATION: REQUESTING PHYSICIAN: Dr. Taveras. REASON FOR CONSULTATION: Pneumonia and knee infection. HISTORY OF PRESENT ILLNESS: This is a 76-year-old female who has multiple medical problems including obesity who has recently undergone reconstructive knee surgery with hardware in place, recovering at rehabilitation. The patient was brought in because of shortness of breath, fever and significant redness of the left knee and left leg. The patient is somnolent right now, on a BiPAP. The patient had been acidotic that I believe that was done before the BiPAP was placed with CO2 retention, had a temperature up to 99.0 here. The patient has been initiated on vancomycin, Levaquin and of meropenem. The patient currently is somnolent or sleepy on a BiPAP. [id number]-gn-[id number] is at the bedside. All the information was obtained through chart review, discussing with the ER physician and the patient's [id number]-hj-ebv. No nausea, vomiting, diarrhea has been noted. The patient did have low-grade fever at the nursing facility and the redness is just recently new; as [id number] says 3 days ago, she had seen her and there was nothing there. PAST MEDICAL HISTORY: Positive for morbid obesity, diabetes, hypertension, COPD, right knee replacement in the past, coronary artery bypass grafting in the past, left knee replacement in the past, carpal tunnel, lumbar laminectomy, gallbladder surgery, total hysterectomy and now a month ago, the patient had a left medial patellofemoral ligament reconstruction with retinacular closure, quadriceps advancement and reefing. SOCIAL HISTORY: Negative for smoking. She has had a long history of smoking, but the patient has quit. No alcohol use or drug use. ALLERGIES: LISTED ALLERGIC TO PENICILLIN AND SULFA. It is unclear what happens as the [id number] is not able to provide that information. CURRENT MEDICATIONS: Reviewed. REVIEW OF SYSTEMS: As per HPI, all other systems reviewed through the [id number]. The patient is not able to provide any information. PHYSICAL EXAMINATION: GENERAL: Somnolent, on a BiPAP, female in mild to moderate respiratory distress. VITAL SIGNS: Temperature 97.2 with a T-max 99, pulse 70, respirations 18, blood pressure 114/56. HEENT: Both pupils are round and reacting. No conjunctival lesion, no oral lesions. NECK: Supple, no JVP, no lymphadenopathy. LUNGS: Decreased breath sounds bilaterally. HEART: S1, S2 regular. No gallop or murmur. ABDOMEN: Soft, nontender, no organomegaly. EXTREMITIES: Both extremities are swollen. Left lower extremity from the knee down, is erythema involving the knee and whole of the leg all the way to the ankle. There is no necrotic area. There is no pus pointing. There is no gaping on the incision. The joint does appear to have fluid. NEUROLOGIC: The patient is neurologically intact. LABORATORY DATA: White count is 8.2, hemoglobin 9.6, platelets are normal. BUN and creatinine are normal. Lactic acid 1.5. Cultures are pending. The patient had earlier this month culture with the urine and E. coli was there. Chest x-ray showed a right basilar infiltrate and cardiomegaly. IMPRESSION: 1. Respiratory failure secondary to chronic obstructive pulmonary disease exacerbation and pneumonia. 2. Left knee and leg cellulitis. It is unclear whether the joint is involved or not. 3. Fever. 4. Chronic obstructive pulmonary disease. 5. Obesity. 6. Encephalopathy. RECOMMENDATIONS: Agree with vancomycin, meropenem and Levaquin. Lyle culture, supportive care. The patient might require intubation if she does not turn around soon as she is already acidotic. Discussed with ER physician as well as discussed with [id number]. Ortho to decide on needle aspiration of the knee. Thank you very much, Dr. Meléndez, for giving me the opportunity to participate in this patient's care. ERA HERNANDEZ MD DR: KURTIS/melva JOB#: [id number] / [id number]
[2017-02-06] MEDS: MEROPENEM IV Push 1 GM VIAL. IVP SCH ×3 (05:36→22:15)
[2017-02-06] MEDS: methylPREDNISolone SOD SUCC PF 40 MG/ML VIAL. IV SCH ×3 (05:36→22:19)
[2017-02-06 05:39] LABS: BASO % 0 % (0-3); EOS % 0 % (0-3); HEMATOCRIT 23.8 % (36.0-47.0); HEMOGLOBIN 7.4 g/dL (12.0-15.5); LYMPH # 0.2 x10^3/uL (1.0-4.8); LYMPH % 9 % (24-48); MEAN CORPUSCULAR HEMOGLOBIN 28 pg (25-35); MEAN CORPUSCULAR HGB CONC 31 g/dL (31-37); MEAN CORPUSCULAR VOLUME 90 fL (79-100); MONO % 6 % (0-9); NEUT % 85 % (31-73); PLATELET COUNT 376 x10^3/uL (140-400); RED BLOOD COUNT 2.64 x10^6/uL (3.50-5.40); RED CELL DISTRIBUTION WIDTH 17.1 % (11.5-14.5); WHITE BLOOD COUNT 2.5 x10^3/uL (4.0-11.0)
[2017-02-06 06:09] LABS: CALCIUM 8.5 mg/dL (8.5-10.1); CREATININE 0.8 mg/dL (0.6-1.0); GFR 69.4; POTASSIUM 4.5 mmol/L (3.5-5.1)
[2017-02-06] MEDS: VANCOMYCIN PER PHARMACY MC PRN (08:00)
[2017-02-06] MEDS: GLIMEPIRIDE 2 MG TABLET. PO SCH ×2 (08:32→16:33)
[2017-02-06] MEDS: VANCOMYCIN 1.75 GM in IV DEXTROSE 5 %-0.45 % NACL 500 ML IV SCH (08:33)
[2017-02-06] MEDS: INSULIN ASPART 300 UNITS/3 ML INSULN.PEN SQ SCH ×4 (08:35→20:46)
[2017-02-06] MEDS ORDERED: LOSARTAN POTASSIUM 25 MG TABLET. PO SCH (09:00)
[2017-02-06] MEDS: IPRATRPIUM/ALBUTEROL 0.5/2.5MG 3 ML NEBU. NEB SCH ×3 (09:33→19:39)
[2017-02-06 09:39] LABS: HCO3 ABG 32 mmol/L (21-28); PH ABG 7.31 (7.35-7.45); PO2 ABG 80 mmHg (65-108); SAT O2 ABG 95 % (92-99)
[2017-02-06 09:41] LABS: PCO2 ABG 64 mmHg (35-46)
[2017-02-06] MEDS: ASPIRIN CHEWABLE 81 MG TABLET. PO SCH (10:32)
[2017-02-06] MEDS: CITALOPRAM 20 MG TABLET. PO SCH (10:32)
[2017-02-06] MEDS: FERROUS SULFATE 325 MG TABLET. PO SCH ×2 (10:32→20:42)
[2017-02-06] MEDS: LACTOBACILLUS RHAMNOSUS GG 1 CAPSULE. PO SCH ×2 (10:32→20:42)
[2017-02-06] MEDS: LEVOTHYROXINE 137 MCG TABLET PO SCH (10:32)
--- NOTE | 2017-02-06 10:43 | PDOC ---
Infectious Disease Note Subjective Subjective c/o left knee ache No fever last 24 hours ROS ROS GEN: Denies chills, sweats CV: Denies chest pain RESP: Denies shortness of air, cough GI: Denies n/v/d Vital Sign Vital Signs Vital Signs Date Time Temp Pulse Resp B/P (MAP) Pulse Ox O2 Delivery O2 Flow Rate FiO2 02/06/17 09:47 100 BiPAP/CPAP 02/06/17 09:36 4.0 02/06/17 09:00 81 98/62 02/06/17 06:00 19 02/06/17 04:00 97.3 97.3 Physical Exam PHYSICAL EXAM GENERAL: Propped up in bed, NAD HEENT: OC/OP dry NECK: Supple LUNGS: Diminished aeration bases, nonlabored HEART: S1S2, irregular, tachy 120s ABD: Obese, soft, NT EXT: BLE edema, no cyanosis DIRECTOR OF CUSTOMER SERVICE: Alert, oriented x 3, no focal neurologic deficit SKIN: No rash IV: ok Labs Lab Laboratory Tests Test 02/05/17 11:50 02/05/17 17:10 02/05/17 18:40 02/05/17 20:30 Urine Collection Type U cath Urine Color Yellow Urine Clarity Turbid Urine pH 6.0 Urine Specific [place] 1.020 Urine Protein 100 mg/dL (NEG-TRACE) Urine Glucose (UA) Negative mg/dL (NEG) Urine Ketones (Stick) Negative mg/dL (NEG) Urine Blood Small (NEG) Urine Nitrite Positive (NEG) Urine Bilirubin Negative (NEG) Urine Urobilinogen Dipstick 0.2 mg/dL (0.2 mg/dL) Urine Leukocyte Esterase Small (NEG) Urine RBC 3-5 /HPF (0-2) Urine WBC 11-20 /HPF (0-4) Urine Squamous Epithelial Cells Many /LPF Urine Amorphous Sediment Present /HPF Urine Bacteria Many /HPF (0-FEW) Urine Mucus Marked /LPF O2 Saturation 94 % (92-99) Arterial Blood pH 7.36 (7.35-7.45) Arterial Blood pCO2 at Patient Temp 54 mmHg (35-46) Arterial Blood pO2 at Patient Temp 73 mmHg (65-108) Arterial Blood HCO3 30 mmol/L (21-28) Arterial Blood Base Excess 4 mmol/L (-3-3) FiO2 40 Glucose (Fingerstick) 175 mg/dL (70-99) Prothrombin Time 20.2 SEC (11.7-14.0) Prothromb Time International Ratio 1.9 (0.8-1.1) Test 02/05/17 21:03 02/06/17 04:45 02/06/17 08:34 02/06/17 09:30 Glucose (Fingerstick) 201 mg/dL (70-99) 159 mg/dL (70-99) White Blood Count 2.5 x10^3/uL (4.0-11.0) Red Blood Count 2.64 x10^6/uL (3.50-5.40) Hemoglobin 7.4 g/dL (12.0-15.5) Hematocrit 23.8 % (36.0-47.0) Mean Corpuscular Volume 90 fL (79-100) Mean Corpuscular Hemoglobin 28 pg (25-35) Mean Corpuscular Hemoglobin Concent 31 g/dL (31-37) Red Cell Distribution Width 17.1 % (11.5-14.5) Platelet Count 376 x10^3/uL (140-400) Neutrophils (%) (Auto) 85 % (31-73) Lymphocytes (%) (Auto) 9 % (24-48) Monocytes (%) (Auto) 6 % (0-9) Eosinophils (%) (Auto) 0 % (0-3) Basophils (%) (Auto) 0 % (0-3) Neutrophils # (Auto) 2.2 x10^3uL (1.8-7.7) Lymphocytes # (Auto) 0.2 x10^3/uL (1.0-4.8) Monocytes # (Auto) 0.1 x10^3/uL (0.0-1.1) Eosinophils # (Auto) 0.0 x10^3/uL (0.0-0.7) Basophils # (Auto) 0.0 x10^3/uL (0.0-0.2) Sodium Level 139 mmol/L (136-145) Potassium Level 4.5 mmol/L (3.5-5.1) Chloride Level 102 mmol/L (98-107) Carbon Dioxide Level 32 mmol/L (21-32) Anion Gap 5 (6-14) Blood Urea Nitrogen 15 mg/dL (7-20) Creatinine 0.8 mg/dL (0.6-1.0) Estimated GFR (Cockcroft-Gault) 69.4 Glucose Level 184 mg/dL (70-99) Calcium Level 8.5 mg/dL (8.5-10.1) O2 Saturation 95 % (92-99) Arterial Blood pH 7.31 (7.35-7.45) Arterial Blood pCO2 at Patient Temp 64 mmHg (35-46) Arterial Blood pO2 at Patient Temp 80 mmHg (65-108) Arterial Blood HCO3 32 mmol/L (21-28) Arterial Blood Base Excess 4 mmol/L (-3-3) FiO2 4 lpm nc Micro BLOOD CULTURE Final GRAM POSITIVE COCCI IN CLUSTERS SEEN IN 1 OF 4 BOTTLES; Objective Assessment GPC in clusters bacteremia (1 of 4 bottles so far), ? contaminate Leukopenia Respiratory failure Pneumonia Left knee and leg cellulitis, ? TKA infection Obesity Fever COPD Plan Plan of Care vanc, meropenem and Levaquin Await GPC ID Monitor W[facility], repeat CBC in am ortho to decide aspiration of knee Pt seen and examined pt says her lt knee pain is improving though not resolved, lt knee is warm asking for anxiety meds, tx per pcp D/W DATA OFFICER Agree with above A and P D/W Family at bedside JOCELYN SHIN APRN Feb 06, 2017 10:43 BRITTANIE HERNANDEZ MD Feb 06, 2017 18:21
[2017-02-06 11:24] LABS: ALBUMIN 1.9 g/dL (3.4-5.0); ALBUMIN/GLOBULIN RATIO 0.5 (1.0-1.7); CALCIUM 8.4 mg/dL (8.5-10.1); CREATININE 0.8 mg/dL (0.6-1.0); GFR 69.4; POTASSIUM 4.5 mmol/L (3.5-5.1); TOTAL BILIRUBIN 0.3 mg/dL (0.2-1.0); TOTAL PROTEIN 6.1 g/dL (6.4-8.2)
--- NOTE | 2017-02-06 11:28 | PDOC ---
SUBJECTIVE Subjective Pt states that she had been having shortness of air since being admitted to [facility]. Over the past couple of days was no longer having a productive cough but shortness of air worsened. Currently on Bipap. Pt states that she is feeling well and has no acute concerns. OBJECTIVE Vital Signs Vital Signs Date Time Temp Pulse Resp B/P (MAP) Pulse Ox O2 Delivery O2 Flow Rate FiO2 02/06/17 09:47 100 BiPAP/CPAP 02/06/17 09:36 Nasal Cannula 4.0 02/06/17 09:00 81 98/62 02/06/17 08:00 Nasal Cannula 4.0 02/06/17 08:00 4.0 02/06/17 06:00 74 19 95/53 (67) 100 BiPAP/CPAP 02/06/17 05:23 100 BiPAP/CPAP 02/06/17 05:00 76 20 86/52 (63) 100 BiPAP/CPAP 02/06/17 04:00 Bi-pap 02/06/17 04:00 97.3 78 35 103/54 (70) 100 BiPAP/CPAP 97.3 02/06/17 03:26 100 BiPAP/CPAP 02/06/17 03:00 80 29 112/70 (84) 94 BiPAP/CPAP 02/06/17 02:00 93 28 115/84 (94) 96 Nasal Cannula 4.0 02/06/17 01:00 99 25 99/65 (76) 97 Nasal Cannula 4.0 02/06/17 00:00 97.8 79 19 100/45 (63) 99 BiPAP/CPAP 97.8 02/06/17 00:00 Bi-pap 02/05/17 23:24 98 BiPAP/CPAP 02/05/17 23:00 88 19 91/57 (68) 99 BiPAP/CPAP 02/05/17 22:00 100 28 99/59 (72) 99 BiPAP/CPAP 02/05/17 21:04 102 111/60 02/05/17 21:00 96 19 111/60 (77) 98 BiPAP/CPAP 02/05/17 20:56 98 BiPAP/CPAP 02/05/17 20:00 97.9 111 32 115/71 (86) 100 BiPAP/CPAP 97.9 02/05/17 20:00 Bi-pap 02/05/17 19:00 104 28 98/66 (77) 95 Nasal Cannula 4.0 02/05/17 18:35 127 24 121/63 (82) 99 BiPAP/CPAP 02/05/17 17:00 99.9 104 23 104/62 (76) 99 BiPAP/CPAP 99.9 02/05/17 16:59 98 BiPAP/CPAP 02/05/17 16:00 104 23 104/62 (76) 99 BiPAP/CPAP 02/05/17 15:31 99 BiPAP/CPAP 02/05/17 15:00 Bi-pap 02/05/17 15:00 100 22 96/56 (69) 99 BiPAP/CPAP 02/05/17 14:45 96 22 94/58 (70) 99 BiPAP/CPAP 02/05/17 14:30 100 22 99/58 (72) 100 BiPAP/CPAP 02/05/17 14:15 108 22 102/63 (76) 100 BiPAP/CPAP 02/05/17 14:00 99.9 115 109/67 (81) 100 BiPAP/CPAP 99.9 02/05/17 13:07 115 22 98/63 (75) 100 BiPAP/CPAP 02/05/17 12:37 106 22 113/61 (78) 100 BiPAP/CPAP 02/05/17 12:07 107 22 112/60 (77) 100 BiPAP/CPAP 02/05/17 11:37 105 23 101/62 (75) 100 BiPAP/CPAP I & O Intake and Output 02/06/17 07:00 Intake Total 4083 ml Output Total 1 ml Balance 4082 ml Intake Oral 200 ml IV Total 3883 ml Output Urine Total 1 ml # Voids 1 PHYSICAL EXAM Physical Exam GEN: Bipap on, NAD, AOx3 HEENT: dry mucous membranes, EOMI, no scleral icterus/injection Cardiac: irregular, no M/R/G Lungs: difficult to auscultate, distant lung sounds, no wheezes/rhonchi/rales Abd: soft, non distended, NTTP Ext: 1+ pitting edema LE bilaterally, chronic venous stasis changes RLE, mild erythema left knee and lower extremity Neuro: CN2-12 GI ASSESSMENT/PLAN Assessment/Plan Pt is a 76yo CF admitted for sepsis and respiratory failure 1)Acute on chronic respiratory failure- likely multifactorial. Pt has COPD, CHF , pulmonary HTN and is currently being treated for PNA. Pulmonary is following and pt is currently on Bipap. Was on 4L NC but repeat ABG showed respiratory acidosis and pt was put back on Bipap. 2)Sepsis- likely multifactorial. Pt being treated for UTI, PNA and possible knee infection. Infectious Disease is following. BP has improved since admission and she is no longer hypotensive. Still requiring increased respiratory support. Pt's U/A appears to be a dirty specimen but was being treated for a UTI at [facility] with multiple resistances. Urine culture pending. Pt had positive blood culture in 1/4 bottle for gram positive cocci, possible contaminant. Unsure of what erythema on pt's LLE looked like yesterday but does not appear to be significant today. 3)UTI 4)PNA 5)Blood culture + gram positive cocci 1/4 bottles, possible contaminant. Ortho has been consulted to evaluate pt's knee 6)COPD- pt continued on breathing treatments. Pt is receiving IV steroids, unsure if she is needing these at this time 7)Acute on chronic diastolic congestive heart failure- pt's BP improved today. Will D/C IVFs. Cardiology following. 8)Pulmonary HTN 9)Atrial fibrillation- rate controlled. Pt receiving Warfarin and Diltiazem 10)Obstructive sleep apnea. 11)Aortic stenosis. 12)Hypertension- will D/C Losartan for now. BP stable without medication, no longer hypotensive 13)Type 2 diabetes- uncontrolled. HbA1C pending. Currently receiving Glimepiride 4mg BID and SSI (has received 6 units over last 24 hours). CTM 14)Hypothyroidism- repeat TSH pending. Pt receiving Levothyroxine 137mcg 15)Generalized anxiety disorder- pt continued on Citalopram 40mg 16)Severe protein-calorie malnutrition 17)HLD- pt continued on Atorvastatin 80mg 18)Anemia- pt has received 3 units of PRBC over the last week and a half. Pt had not been complaining of any active bleeding, no dark stools, etc. There was concern of some blood loss from surgery. FOBT pending Problems: COMMENT Lab Laboratory Tests Test 02/05/17 11:50 02/05/17 17:10 02/05/17 18:40 02/05/17 20:30 Urine Collection Type U cath Urine Color Yellow Urine Clarity Turbid Urine pH 6.0 Urine Specific [place] 1.020 Urine Protein 100 mg/dL (NEG-TRACE) Urine Glucose (UA) Negative mg/dL (NEG) Urine Ketones (Stick) Negative mg/dL (NEG) Urine Blood Small (NEG) Urine Nitrite Positive (NEG) Urine Bilirubin Negative (NEG) Urine Urobilinogen Dipstick 0.2 mg/dL (0.2 mg/dL) Urine Leukocyte Esterase Small (NEG) Urine RBC 3-5 /HPF (0-2) Urine WBC 11-20 /HPF (0-4) Urine Squamous Epithelial Cells Many /LPF Urine Amorphous Sediment Present /HPF Urine Bacteria Many /HPF (0-FEW) Urine Mucus Marked /LPF O2 Saturation 94 % (92-99) Arterial Blood pH 7.36 (7.35-7.45) Arterial Blood pCO2 at Patient Temp 54 mmHg (35-46) Arterial Blood pO2 at Patient Temp 73 mmHg (65-108) Arterial Blood HCO3 30 mmol/L (21-28) Arterial Blood Base Excess 4 mmol/L (-3-3) FiO2 40 Glucose (Fingerstick) 175 mg/dL (70-99) Prothrombin Time 20.2 SEC (11.7-14.0) Prothromb Time International Ratio 1.9 (0.8-1.1) Test 02/05/17 21:03 02/06/17 04:45 02/06/17 08:34 02/06/17 09:30 Glucose (Fingerstick) 201 mg/dL (70-99) 159 mg/dL (70-99) White Blood Count 2.5 x10^3/uL (4.0-11.0) Red Blood Count 2.64 x10^6/uL (3.50-5.40) Hemoglobin 7.4 g/dL (12.0-15.5) Hematocrit 23.8 % (36.0-47.0) Mean Corpuscular Volume 90 fL (79-100) Mean Corpuscular Hemoglobin 28 pg (25-35) Mean Corpuscular Hemoglobin Concent 31 g/dL (31-37) Red Cell Distribution Width 17.1 % (11.5-14.5) Platelet Count 376 x10^3/uL (140-400) Neutrophils (%) (Auto) 85 % (31-73) Lymphocytes (%) (Auto) 9 % (24-48) Monocytes (%) (Auto) 6 % (0-9) Eosinophils (%) (Auto) 0 % (0-3) Basophils (%) (Auto) 0 % (0-3) Neutrophils # (Auto) 2.2 x10^3uL (1.8-7.7) Lymphocytes # (Auto) 0.2 x10^3/uL (1.0-4.8) Monocytes # (Auto) 0.1 x10^3/uL (0.0-1.1) Eosinophils # (Auto) 0.0 x10^3/uL (0.0-0.7) Basophils # (Auto) 0.0 x10^3/uL (0.0-0.2) Sodium Level 139 mmol/L (136-145) Potassium Level 4.5 mmol/L (3.5-5.1) Chloride Level 102 mmol/L (98-107) Carbon Dioxide Level 32 mmol/L (21-32) Anion Gap 5 (6-14) Blood Urea Nitrogen 15 mg/dL (7-20) Creatinine 0.8 mg/dL (0.6-1.0) Estimated GFR (Cockcroft-Gault) 69.4 Glucose Level 184 mg/dL (70-99) Calcium Level 8.5 mg/dL (8.5-10.1) O2 Saturation 95 % (92-99) Arterial Blood pH 7.31 (7.35-7.45) Arterial Blood pCO2 at Patient Temp 64 mmHg (35-46) Arterial Blood pO2 at Patient Temp 80 mmHg (65-108) Arterial Blood HCO3 32 mmol/L (21-28) Arterial Blood Base Excess 4 mmol/L (-3-3) FiO2 4 lpm BRIANA Prasad MD Feb 06, 2017 11:28
--- NOTE | 2017-02-06 12:15 | PDOC ---
PULMONARY PROGRESS NOTES Subjective could not tolerate off BIPAP Vitals Vital Signs Date Time Temp Pulse Resp B/P (MAP) Pulse Ox O2 Delivery O2 Flow Rate FiO2 02/06/17 11:00 100 22 112/71 (85) 100 BiPAP/CPAP 02/06/17 09:36 4.0 02/06/17 08:00 98.0 98.0 General: Lethargic Lungs: Clear Cardiovascular: S1, S2 Abdomen: Soft Extremities: Other (2=edema) Labs Laboratory Tests Test 02/05/17 09:05 02/05/17 09:10 02/05/17 09:30 02/05/17 09:55 White Blood Count 8.2 x10^3/uL (4.0-11.0) Red Blood Count 3.37 x10^6/uL (3.50-5.40) Hemoglobin 9.6 g/dL (12.0-15.5) Hematocrit 29.8 % (36.0-47.0) Mean Corpuscular Volume 88 fL (79-100) Mean Corpuscular Hemoglobin 29 pg (25-35) Mean Corpuscular Hemoglobin Concent 32 g/dL (31-37) Red Cell Distribution Width 18.2 % (11.5-14.5) Platelet Count 333 x10^3/uL (140-400) Neutrophils (%) (Auto) 90 % (31-73) Lymphocytes (%) (Auto) 3 % (24-48) Monocytes (%) (Auto) 7 % (0-9) Eosinophils (%) (Auto) 0 % (0-3) Basophils (%) (Auto) 0 % (0-3) Neutrophils # (Auto) 7.4 x10^3uL (1.8-7.7) Lymphocytes # (Auto) 0.2 x10^3/uL (1.0-4.8) Monocytes # (Auto) 0.5 x10^3/uL (0.0-1.1) Eosinophils # (Auto) 0.0 x10^3/uL (0.0-0.7) Basophils # (Auto) 0.0 x10^3/uL (0.0-0.2) Segmented Neutrophils % 86 % (35-66) Band Neutrophils % 4 % (0-9) Lymphocytes % 4 % (24-48) Monocytes % 6 % (0-10) Platelet Estimate Adequate (ADEQUATE) Polychromasia Slight Anisocytosis Slight Tear Drop Cells Occ Ovalocytes Few Influenza Type A Antigen Negative (NEGATIVE) Influenza Type B Antigen Negative (NEGATIVE) O2 Saturation 91 % (92-99) Arterial Blood pH 7.30 (7.35-7.45) Arterial Blood pCO2 at Patient Temp 69 mmHg (35-46) Arterial Blood pO2 at Patient Temp 67 mmHg (65-108) Arterial Blood HCO3 33 mmol/L (21-28) Arterial Blood Base Excess 5 mmol/L (-3-3) FiO2 32.0 Sodium Level 140 mmol/L (136-145) Potassium Level 5.1 mmol/L (3.5-5.1) Chloride Level 99 mmol/L (98-107) Carbon Dioxide Level 35 mmol/L (21-32) Anion Gap 6 (6-14) Blood Urea Nitrogen 12 mg/dL (7-20) Creatinine 1.0 mg/dL (0.6-1.0) Estimated GFR (Cockcroft-Gault) 53.6 BUN/Creatinine Ratio 12 (6-20) Glucose Level 161 mg/dL (70-99) Lactic Acid Level 1.5 mmol/L (0.4-2.0) Calcium Level 8.4 mg/dL (8.5-10.1) Total Bilirubin 0.3 mg/dL (0.2-1.0) Aspartate Amino Transf (AST/SGOT) 22 U/L (15-37) Alanine Aminotransferase (ALT/SGPT) 24 U/L (14-59) Alkaline Phosphatase 90 U/L (46-116) Creatine Kinase 20 U/L (26-192) Creatine Kinase MB (Mass) < 0.5 ng/mL (0.0-3.6) Creatine Kinase MB Relative Index % (0-4) Troponin I Quantitative 0.032 ng/mL (0.000-0.055) KQ-Tdi-S-Type Natriuretic Peptide 3761 pg/mL (0-449) Total Protein 7.1 g/dL (6.4-8.2) Albumin 2.6 g/dL (3.4-5.0) Albumin/Globulin Ratio 0.6 (1.0-1.7) Test 02/05/17 11:50 02/05/17 17:10 02/05/17 18:40 02/05/17 20:30 Urine Collection Type U cath Urine Color Yellow Urine Clarity Turbid Urine pH 6.0 Urine Specific [place] 1.020 Urine Protein 100 mg/dL (NEG-TRACE) Urine Glucose (UA) Negative mg/dL (NEG) Urine Ketones (Stick) Negative mg/dL (NEG) Urine Blood Small (NEG) Urine Nitrite Positive (NEG) Urine Bilirubin Negative (NEG) Urine Urobilinogen Dipstick 0.2 mg/dL (0.2 mg/dL) Urine Leukocyte Esterase Small (NEG) Urine RBC 3-5 /HPF (0-2) Urine WBC 11-20 /HPF (0-4) Urine Squamous Epithelial Cells Many /LPF Urine Amorphous Sediment Present /HPF Urine Bacteria Many /HPF (0-FEW) Urine Mucus Marked /LPF O2 Saturation 94 % (92-99) Arterial Blood pH 7.36 (7.35-7.45) Arterial Blood pCO2 at Patient Temp 54 mmHg (35-46) Arterial Blood pO2 at Patient Temp 73 mmHg (65-108) Arterial Blood HCO3 30 mmol/L (21-28) Arterial Blood Base Excess 4 mmol/L (-3-3) FiO2 40 Glucose (Fingerstick) 175 mg/dL (70-99) Prothrombin Time 20.2 SEC (11.7-14.0) Prothromb Time International Ratio 1.9 (0.8-1.1) Test 02/05/17 21:03 02/06/17 04:45 02/06/17 08:34 02/06/17 09:30 Glucose (Fingerstick) 201 mg/dL (70-99) 159 mg/dL (70-99) White Blood Count 2.5 x10^3/uL (4.0-11.0) Red Blood Count 2.64 x10^6/uL (3.50-5.40) Hemoglobin 7.4 g/dL (12.0-15.5) Hematocrit 23.8 % (36.0-47.0) Mean Corpuscular Volume 90 fL (79-100) Mean Corpuscular Hemoglobin 28 pg (25-35) Mean Corpuscular Hemoglobin Concent 31 g/dL (31-37) Red Cell Distribution Width 17.1 % (11.5-14.5) Platelet Count 376 x10^3/uL (140-400) Neutrophils (%) (Auto) 85 % (31-73) Lymphocytes (%) (Auto) 9 % (24-48) Monocytes (%) (Auto) 6 % (0-9) Eosinophils (%) (Auto) 0 % (0-3) Basophils (%) (Auto) 0 % (0-3) Neutrophils # (Auto) 2.2 x10^3uL (1.8-7.7) Lymphocytes # (Auto) 0.2 x10^3/uL (1.0-4.8) Monocytes # (Auto) 0.1 x10^3/uL (0.0-1.1) Eosinophils # (Auto) 0.0 x10^3/uL (0.0-0.7) Basophils # (Auto) 0.0 x10^3/uL (0.0-0.2) Sodium Level 139 mmol/L (136-145) Potassium Level 4.5 mmol/L (3.5-5.1) Chloride Level 102 mmol/L (98-107) Carbon Dioxide Level 32 mmol/L (21-32) Anion Gap 5 (6-14) Blood Urea Nitrogen 15 mg/dL (7-20) Creatinine 0.8 mg/dL (0.6-1.0) Estimated GFR (Cockcroft-Gault) 69.4 BUN/Creatinine Ratio 19 (6-20) Glucose Level 179 mg/dL (70-99) Calcium Level 8.4 mg/dL (8.5-10.1) Total Bilirubin 0.3 mg/dL (0.2-1.0) Aspartate Amino Transf (AST/SGOT) 22 U/L (15-37) Alanine Aminotransferase (ALT/SGPT) 22 U/L (14-59) Alkaline Phosphatase 72 U/L (46-116) Total Protein 6.1 g/dL (6.4-8.2) Albumin 1.9 g/dL (3.4-5.0) Albumin/Globulin Ratio 0.5 (1.0-1.7) O2 Saturation 95 % (92-99) Arterial Blood pH 7.31 (7.35-7.45) Arterial Blood pCO2 at Patient Temp 64 mmHg (35-46) Arterial Blood pO2 at Patient Temp 80 mmHg (65-108) Arterial Blood HCO3 32 mmol/L (21-28) Arterial Blood Base Excess 4 mmol/L (-3-3) FiO2 4 lpm nc Laboratory Tests Test 02/05/17 17:10 02/05/17 18:40 02/05/17 20:30 02/05/17 21:03 O2 Saturation 94 % (92-99) Arterial Blood pH 7.36 (7.35-7.45) Arterial Blood pCO2 at Patient Temp 54 mmHg (35-46) Arterial Blood pO2 at Patient Temp 73 mmHg (65-108) Arterial Blood HCO3 30 mmol/L (21-28) Arterial Blood Base Excess 4 mmol/L (-3-3) FiO2 40 Glucose (Fingerstick) 175 mg/dL (70-99) 201 mg/dL (70-99) Prothrombin Time 20.2 SEC (11.7-14.0) Prothromb Time International Ratio 1.9 (0.8-1.1) Test 02/06/17 04:45 02/06/17 08:34 02/06/17 09:30 White Blood Count 2.5 x10^3/uL (4.0-11.0) Red Blood Count 2.64 x10^6/uL (3.50-5.40) Hemoglobin 7.4 g/dL (12.0-15.5) Hematocrit 23.8 % (36.0-47.0) Mean Corpuscular Volume 90 fL (79-100) Mean Corpuscular Hemoglobin 28 pg (25-35) Mean Corpuscular Hemoglobin Concent 31 g/dL (31-37) Red Cell Distribution Width 17.1 % (11.5-14.5) Platelet Count 376 x10^3/uL (140-400) Neutrophils (%) (Auto) 85 % (31-73) Lymphocytes (%) (Auto) 9 % (24-48) Monocytes (%) (Auto) 6 % (0-9) Eosinophils (%) (Auto) 0 % (0-3) Basophils (%) (Auto) 0 % (0-3) Neutrophils # (Auto) 2.2 x10^3uL (1.8-7.7) Lymphocytes # (Auto) 0.2 x10^3/uL (1.0-4.8) Monocytes # (Auto) 0.1 x10^3/uL (0.0-1.1) Eosinophils # (Auto) 0.0 x10^3/uL (0.0-0.7) Basophils # (Auto) 0.0 x10^3/uL (0.0-0.2) Sodium Level 139 mmol/L (136-145) Potassium Level 4.5 mmol/L (3.5-5.1) Chloride Level 102 mmol/L (98-107) Carbon Dioxide Level 32 mmol/L (21-32) Anion Gap 5 (6-14) Blood Urea Nitrogen 15 mg/dL (7-20) Creatinine 0.8 mg/dL (0.6-1.0) Estimated GFR (Cockcroft-Gault) 69.4 BUN/Creatinine Ratio 19 (6-20) Glucose Level 179 mg/dL (70-99) Calcium Level 8.4 mg/dL (8.5-10.1) Total Bilirubin 0.3 mg/dL (0.2-1.0) Aspartate Amino Transf (AST/SGOT) 22 U/L (15-37) Alanine Aminotransferase (ALT/SGPT) 22 U/L (14-59) Alkaline Phosphatase 72 U/L (46-116) Total Protein 6.1 g/dL (6.4-8.2) Albumin 1.9 g/dL (3.4-5.0) Albumin/Globulin Ratio 0.5 (1.0-1.7) Glucose (Fingerstick) 159 mg/dL (70-99) O2 Saturation 95 % (92-99) Arterial Blood pH 7.31 (7.35-7.45) Arterial Blood pCO2 at Patient Temp 64 mmHg (35-46) Arterial Blood pO2 at Patient Temp 80 mmHg (65-108) Arterial Blood HCO3 32 mmol/L (21-28) Arterial Blood Base Excess 4 mmol/L (-3-3) FiO2 4 lpm nc Medications Active Scripts Medications Dose Route/Sig Max Daily Dose Days Date Category Dose Instructions Ferrous Sulfate 325 Mg Tablet 1 Tab PO BID 01/08/17 Reported LAST DOSE GIVEN: DATE:01/08/17 TIME:9:00 a.m. Warfarin Sodium 5 Mg Tablet 1 Tab PO DAILY 30 01/08/17 Reported LAST DOSE GIVEN: DATE:01/08/17 TIME:2:00 p.m Levothyroxine Sodium 137 Mcg Tablet 137 Mcg PO DAILYAC 01/04/17 Reported LAST DOSE GIVEN: DATE:01/08/17 TIME:7:30 a.m. Furosemide 40 Mg Tablet 40 Mg PO DAILY 01/04/17 Reported LAST DOSE GIVEN: DATE:01/07/17 TIME:9:00 a.m. Aspirin 81 Mg Tab.chew 1 Tab PO DAILY 11/16/16 Reported LAST DOSE GIVEN: DATE:01/08/17 TIME:9:00 a.m. Hydrocodone-Apap 7.5-325 (Hydrocodone Bit/Acetaminophen) 1 Each Tablet 1-2 Tab PO PRN Q6HRS PRN 12/26/15 Reported Took at 12:30 today may take anytime as needed for pain every 4 hours Amaryl (Glimepiride) 4 Mg Tablet 1 Tab PO BID 12/16/15 Reported LAST DOSE GIVEN: DATE:01/08/17 TIME:9:00 a.m. Potassium Chloride 20 Meq Tab.er.prt 1 Tab PO WEEKLY 04/17/15 Reported Meds not given this hospital admission. May resume home medications as approved by Physician. TIME: 8:30 a.m. NEXT DOSE DUE: DATE: 12-28-15 TIME: 8:30 a.m. Metolazone 5 Mg Tablet 5 Mg PO WEEKLY 04/16/15 Reported Meds not given this hospital admission. May resume home medications as approved by Physician. TIME: 8:30 a.m. NEXT DOSE DUE: DATE: 12-28-15 TIME: 8:30 a.m. Lexapro (Escitalopram Oxalate) 10 Mg Tablet 20 Mg PO DAILY 05/01/13 Reported LAST DOSE GIVEN: DATE:01/08/17 TIME:9:00 a.m. NEXT DOSE DUE: DATE: 12-28-15 TIME: 8:30 a.m. Cardizem Cd (Diltiazem Hcl) 240 Mg Cap.er.24h 120 Mg PO HS 05/01/13 Reported LAST DOSE GIVEN: DATE:01/07/17 TIME:9:00 p.m. NEXT DOSE DUE: DATE: 12-27-15 TIME: 9:00 p.m. Losartan Potassium 100 Mg Tablet 25 Mg PO DAILY 05/01/13 Reported LAST DOSE GIVEN: DATE:01/07/17 TIME:9:00 a.m. Crestor (Rosuvastatin Calcium) 40 Mg Tablet 40 Mg PO QHS 05/01/13 Reported LAST DOSE GIVEN: DATE:01/07/17 TIME:9:00 p.m. NEXT DOSE DUE: DATE: 12-27-15 TIME: 9:00 p.m. Impression . 1. Acute on chronic hypercapnic respiratory failure secondary to multifactorial etiologies including combination of sepsis, healthcare-associated pneumonia, worsening hypercapnia related to narcotic use as well and chronic obstructive pulmonary disease exacerbation, underlying JAYLIN/OHS. 2. Sepsis syndrome with fever and altered mental status. 3. Clinically, less likely congestive heart failure. 4. History of underlying chronic obstructive pulmonary disease with cor pulmonale and suspected obesity hypoventilation syndrome. 5. Moderate to severe protein-calorie malnutrition. 6. Abnormal chest x-ray with a right lower lobe infiltrate and possible retrocardiac infiltrate as well. The interstitial markings are slightly prominent, but they were present in October as well, and clinically, I do not think of congestive heart failure, more likely pneumonia. Plan . 1. Continue with present BiPAP. 2. Follow ABGs and make changes as needed. 3. Broad spectrum antibiotics to cover for gram-negative and gram-positive pneumonia. 4. sepsis protocol./ s/p IVF 5. Vasopressor if needed. 6. Last EF normal. 7. Broad spectrum antibiotic. 8. Follow all cultures. 9. Hold off any diuretics at present. 10. Improve nutritional status. 11. Discussed with RN and RT and will follow along with you. cct 25 min ALYSSA SLADE MD Feb 06, 2017 12:15
--- NOTE | 2017-02-06 13:53 | PDOC ---
PROGRESS NOTES Subjective Subjective Patient requiring BiPAP. To eat she was wearing a nasal cannula and she was very dyspneic. No chest pains. Rhythm continues to be A. fib which is chronic with her Objective Objective Vital Signs Date Time Temp Pulse Resp B/P (MAP) Pulse Ox O2 Delivery O2 Flow Rate FiO2 02/06/17 13:07 Nasal Cannula 3.0 02/06/17 11:00 100 22 112/71 (85) 100 02/06/17 08:00 98.0 98.0 Intake and Output 02/06/17 06:59 Intake Total 4083 ml Output Total 1 ml Balance 4082 ml Intake Oral 200 ml IV Total 3883 ml Output Urine Total 1 ml # Voids 1 Physical Exam Physical Exam No significant changes in cardiac exam Assessment Assessment Patient improved but still having respiratory failure. I agree with present plan. Problems Medical Problems: (1) Acute on chronic congestive heart failure Status: Acute (2) COPD (chronic obstructive pulmonary disease) Status: Acute (3) Healthcare-associated pneumonia Status: Acute (4) Morbid obesity Status: Acute (5) Sepsis Status: Acute (6) Severe protein-calorie malnutrition Status: Acute (7) Urinary tract infection Status: Acute Comment Review of Relevant I have reviewed the following items donald (where applicable) has been applied. Labs Laboratory Tests Test 02/05/17 09:05 02/05/17 09:10 02/05/17 09:30 02/05/17 09:55 White Blood Count 8.2 x10^3/uL (4.0-11.0) Red Blood Count 3.37 x10^6/uL (3.50-5.40) Hemoglobin 9.6 g/dL (12.0-15.5) Hematocrit 29.8 % (36.0-47.0) Mean Corpuscular Volume 88 fL (79-100) Mean Corpuscular Hemoglobin 29 pg (25-35) Mean Corpuscular Hemoglobin Concent 32 g/dL (31-37) Red Cell Distribution Width 18.2 % (11.5-14.5) Platelet Count 333 x10^3/uL (140-400) Neutrophils (%) (Auto) 90 % (31-73) Lymphocytes (%) (Auto) 3 % (24-48) Monocytes (%) (Auto) 7 % (0-9) Eosinophils (%) (Auto) 0 % (0-3) Basophils (%) (Auto) 0 % (0-3) Neutrophils # (Auto) 7.4 x10^3uL (1.8-7.7) Lymphocytes # (Auto) 0.2 x10^3/uL (1.0-4.8) Monocytes # (Auto) 0.5 x10^3/uL (0.0-1.1) Eosinophils # (Auto) 0.0 x10^3/uL (0.0-0.7) Basophils # (Auto) 0.0 x10^3/uL (0.0-0.2) Segmented Neutrophils % 86 % (35-66) Band Neutrophils % 4 % (0-9) Lymphocytes % 4 % (24-48) Monocytes % 6 % (0-10) Platelet Estimate Adequate (ADEQUATE) Polychromasia Slight Anisocytosis Slight Tear Drop Cells Occ Ovalocytes Few Influenza Type A Antigen Negative (NEGATIVE) Influenza Type B Antigen Negative (NEGATIVE) O2 Saturation 91 % (92-99) Arterial Blood pH 7.30 (7.35-7.45) Arterial Blood pCO2 at Patient Temp 69 mmHg (35-46) Arterial Blood pO2 at Patient Temp 67 mmHg (65-108) Arterial Blood HCO3 33 mmol/L (21-28) Arterial Blood Base Excess 5 mmol/L (-3-3) FiO2 32.0 Sodium Level 140 mmol/L (136-145) Potassium Level 5.1 mmol/L (3.5-5.1) Chloride Level 99 mmol/L (98-107) Carbon Dioxide Level 35 mmol/L (21-32) Anion Gap 6 (6-14) Blood Urea Nitrogen 12 mg/dL (7-20) Creatinine 1.0 mg/dL (0.6-1.0) Estimated GFR (Cockcroft-Gault) 53.6 BUN/Creatinine Ratio 12 (6-20) Glucose Level 161 mg/dL (70-99) Lactic Acid Level 1.5 mmol/L (0.4-2.0) Calcium Level 8.4 mg/dL (8.5-10.1) Total Bilirubin 0.3 mg/dL (0.2-1.0) Aspartate Amino Transf (AST/SGOT) 22 U/L (15-37) Alanine Aminotransferase (ALT/SGPT) 24 U/L (14-59) Alkaline Phosphatase 90 U/L (46-116) Creatine Kinase 20 U/L (26-192) Creatine Kinase MB (Mass) < 0.5 ng/mL (0.0-3.6) Creatine Kinase MB Relative Index % (0-4) Troponin I Quantitative 0.032 ng/mL (0.000-0.055) OO-Qgz-O-Type Natriuretic Peptide 3761 pg/mL (0-449) Total Protein 7.1 g/dL (6.4-8.2) Albumin 2.6 g/dL (3.4-5.0) Albumin/Globulin Ratio 0.6 (1.0-1.7) Test 02/05/17 11:50 02/05/17 17:10 02/05/17 18:40 02/05/17 20:30 Urine Collection Type U cath Urine Color Yellow Urine Clarity Turbid Urine pH 6.0 Urine Specific [place] 1.020 Urine Protein 100 mg/dL (NEG-TRACE) Urine Glucose (UA) Negative mg/dL (NEG) Urine Ketones (Stick) Negative mg/dL (NEG) Urine Blood Small (NEG) Urine Nitrite Positive (NEG) Urine Bilirubin Negative (NEG) Urine Urobilinogen Dipstick 0.2 mg/dL (0.2 mg/dL) Urine Leukocyte Esterase Small (NEG) Urine RBC 3-5 /HPF (0-2) Urine WBC 11-20 /HPF (0-4) Urine Squamous Epithelial Cells Many /LPF Urine Amorphous Sediment Present /HPF Urine Bacteria Many /HPF (0-FEW) Urine Mucus Marked /LPF O2 Saturation 94 % (92-99) Arterial Blood pH 7.36 (7.35-7.45) Arterial Blood pCO2 at Patient Temp 54 mmHg (35-46) Arterial Blood pO2 at Patient Temp 73 mmHg (65-108) Arterial Blood HCO3 30 mmol/L (21-28) Arterial Blood Base Excess 4 mmol/L (-3-3) FiO2 40 Glucose (Fingerstick) 175 mg/dL (70-99) Prothrombin Time 20.2 SEC (11.7-14.0) Prothromb Time International Ratio 1.9 (0.8-1.1) Test 02/05/17 21:03 02/06/17 04:45 02/06/17 08:34 02/06/17 09:30 Glucose (Fingerstick) 201 mg/dL (70-99) 159 mg/dL (70-99) White Blood Count 2.5 x10^3/uL (4.0-11.0) Red Blood Count 2.64 x10^6/uL (3.50-5.40) Hemoglobin 7.4 g/dL (12.0-15.5) Hematocrit 23.8 % (36.0-47.0) Mean Corpuscular Volume 90 fL (79-100) Mean Corpuscular Hemoglobin 28 pg (25-35) Mean Corpuscular Hemoglobin Concent 31 g/dL (31-37) Red Cell Distribution Width 17.1 % (11.5-14.5) Platelet Count 376 x10^3/uL (140-400) Neutrophils (%) (Auto) 85 % (31-73) Lymphocytes (%) (Auto) 9 % (24-48) Monocytes (%) (Auto) 6 % (0-9) Eosinophils (%) (Auto) 0 % (0-3) Basophils (%) (Auto) 0 % (0-3) Neutrophils # (Auto) 2.2 x10^3uL (1.8-7.7) Lymphocytes # (Auto) 0.2 x10^3/uL (1.0-4.8) Monocytes # (Auto) 0.1 x10^3/uL (0.0-1.1) Eosinophils # (Auto) 0.0 x10^3/uL (0.0-0.7) Basophils # (Auto) 0.0 x10^3/uL (0.0-0.2) Sodium Level 139 mmol/L (136-145) Potassium Level 4.5 mmol/L (3.5-5.1) Chloride Level 102 mmol/L (98-107) Carbon Dioxide Level 32 mmol/L (21-32) Anion Gap 5 (6-14) Blood Urea Nitrogen 15 mg/dL (7-20) Creatinine 0.8 mg/dL (0.6-1.0) Estimated GFR (Cockcroft-Gault) 69.4 BUN/Creatinine Ratio 19 (6-20) Glucose Level 179 mg/dL (70-99) Calcium Level 8.4 mg/dL (8.5-10.1) Total Bilirubin 0.3 mg/dL (0.2-1.0) Aspartate Amino Transf (AST/SGOT) 22 U/L (15-37) Alanine Aminotransferase (ALT/SGPT) 22 U/L (14-59) Alkaline Phosphatase 72 U/L (46-116) Total Protein 6.1 g/dL (6.4-8.2) Albumin 1.9 g/dL (3.4-5.0) Albumin/Globulin Ratio 0.5 (1.0-1.7) Thyroid Stimulating Hormone (TSH) 0.695 uIU/mL (0.358-3.74) O2 Saturation 95 % (92-99) Arterial Blood pH 7.31 (7.35-7.45) Arterial Blood pCO2 at Patient Temp 64 mmHg (35-46) Arterial Blood pO2 at Patient Temp 80 mmHg (65-108) Arterial Blood HCO3 32 mmol/L (21-28) Arterial Blood Base Excess 4 mmol/L (-3-3) FiO2 4 lpm nc Laboratory Tests Test 02/05/17 17:10 02/05/17 18:40 02/05/17 20:30 02/05/17 21:03 O2 Saturation 94 % (92-99) Arterial Blood pH 7.36 (7.35-7.45) Arterial Blood pCO2 at Patient Temp 54 mmHg (35-46) Arterial Blood pO2 at Patient Temp 73 mmHg (65-108) Arterial Blood HCO3 30 mmol/L (21-28) Arterial Blood Base Excess 4 mmol/L (-3-3) FiO2 40 Glucose (Fingerstick) 175 mg/dL (70-99) 201 mg/dL (70-99) Prothrombin Time 20.2 SEC (11.7-14.0) Prothromb Time International Ratio 1.9 (0.8-1.1) Test 02/06/17 04:45 02/06/17 08:34 02/06/17 09:30 White Blood Count 2.5 x10^3/uL (4.0-11.0) Red Blood Count 2.64 x10^6/uL (3.50-5.40) Hemoglobin 7.4 g/dL (12.0-15.5) Hematocrit 23.8 % (36.0-47.0) Mean Corpuscular Volume 90 fL (79-100) Mean Corpuscular Hemoglobin 28 pg (25-35) Mean Corpuscular Hemoglobin Concent 31 g/dL (31-37) Red Cell Distribution Width 17.1 % (11.5-14.5) Platelet Count 376 x10^3/uL (140-400) Neutrophils (%) (Auto) 85 % (31-73) Lymphocytes (%) (Auto) 9 % (24-48) Monocytes (%) (Auto) 6 % (0-9) Eosinophils (%) (Auto) 0 % (0-3) Basophils (%) (Auto) 0 % (0-3) Neutrophils # (Auto) 2.2 x10^3uL (1.8-7.7) Lymphocytes # (Auto) 0.2 x10^3/uL (1.0-4.8) Monocytes # (Auto) 0.1 x10^3/uL (0.0-1.1) Eosinophils # (Auto) 0.0 x10^3/uL (0.0-0.7) Basophils # (Auto) 0.0 x10^3/uL (0.0-0.2) Sodium Level 139 mmol/L (136-145) Potassium Level 4.5 mmol/L (3.5-5.1) Chloride Level 102 mmol/L (98-107) Carbon Dioxide Level 32 mmol/L (21-32) Anion Gap 5 (6-14) Blood Urea Nitrogen 15 mg/dL (7-20) Creatinine 0.8 mg/dL (0.6-1.0) Estimated GFR (Cockcroft-Gault) 69.4 BUN/Creatinine Ratio 19 (6-20) Glucose Level 179 mg/dL (70-99) Calcium Level 8.4 mg/dL (8.5-10.1) Total Bilirubin 0.3 mg/dL (0.2-1.0) Aspartate Amino Transf (AST/SGOT) 22 U/L (15-37) Alanine Aminotransferase (ALT/SGPT) 22 U/L (14-59) Alkaline Phosphatase 72 U/L (46-116) Total Protein 6.1 g/dL (6.4-8.2) Albumin 1.9 g/dL (3.4-5.0) Albumin/Globulin Ratio 0.5 (1.0-1.7) Thyroid Stimulating Hormone (TSH) 0.695 uIU/mL (0.358-3.74) Glucose (Fingerstick) 159 mg/dL (70-99) O2 Saturation 95 % (92-99) Arterial Blood pH 7.31 (7.35-7.45) Arterial Blood pCO2 at Patient Temp 64 mmHg (35-46) Arterial Blood pO2 at Patient Temp 80 mmHg (65-108) Arterial Blood HCO3 32 mmol/L (21-28) Arterial Blood Base Excess 4 mmol/L (-3-3) FiO2 4 lpm nc Microbiology 02/05/17 Blood Culture - Preliminary, Resulted NO GROWTH AFTER 1 DAY Medications Current Medications Sodium Chloride 1,000 ml @ 620 mls/hr Q1H37M IV Last administered on 10:43; Start 02/05/17 at 09:05; Stop 02/05/17 at 12:05; Status DC Albuterol/ Ipratropium (Duoneb) 6 ml 1X ONCE NEB Last administered on 09:18; Start 02/05/17 at 09:15; Stop 02/05/17 at 09:16; Status DC Meropenem 1 gm/ Sodium Chloride 100 ml @ 200 mls/hr Q8HRS IV ; Start 02/05/17 at 14:00; Status UNV Vancomycin HCl (Vanco Per Pharmacy) 1 each PRN DAILY PRN MC SEE COMMENTS Last administered on 02/06/17 08:00; Start 02/05/17 at 11:30 Levofloxacin/ Dextrose (Levaquin Per Pharmacy) 1 each PRN DAILY PRN MC SEE COMMENTS; Start 02/05/17 at 11:30 Vancomycin HCl 2 gm/Dextrose 500 ml @ 250 mls/hr 1X ONCE IV Last administered on 02/05/17 13:20; Start 02/05/17 at 12:00; Stop 02/05/17 at 13 :59; Status DC Meropenem (Merrem) 1 gm 1X ONCE IVP Last administered on 02/05/17 11:37; Start 02/05/17 at 12:00; Stop 02/05/17 at 19:17; Status DC Levofloxacin/ Dextrose 150 ml @ 100 mls/hr 1X ONCE IV Last administered on 11:38; Start 02/05/17 at 12:00; Stop 02/05/17 at 13:29; Status DC Methylprednisolone Sodium Succinate (SOLU-Medrol 125MG VIAL) 125 mg 1X ONCE IV Last administered on 02/05/17 12:06; Start 02/05/17 at 11:45; Stop at 11:59; Status DC Ondansetron HCl (Zofran) 4 mg PRN Q8HRS PRN IV NAUSEA/VOMITING; Start at 12:00; Stop 02/06/17 at 11:59; Status DC Sodium Chloride 1,000 ml @ 75 mls/hr [id number] IV Last administered on 16:24; Start 02/05/17 at 11:46; Stop 02/06/17 at 11:19; Status DC Acetaminophen (Tylenol) 650 mg PRN Q4HRS PRN PO FEVER Last administered on 03:34; Start 02/05/17 at 12:00; Stop 02/06/17 at 11:59; Status DC Albuterol/ Ipratropium (Duoneb) 3 ml RTQID NEB Last administered on 02/06/17 09:33; Start 02/05/17 at 12:00; Stop 02/06/17 at 11:59; Status DC Dobutamine HCl 2000 mg/Dextrose 250 ml @ 4.59 mls/hr CONT IV ; Start 02/05/17 at 12:00; Stop 02/05/17 at 13:17; Status DC Dobutamine HCl/ Dextrose 250 ml @ 18.375 mls/ hr CONT PRN IV SEE I/O RECORD; Start 02/05/17 at 13:15 Meropenem (Merrem) 1 gm Q8HRS IVP Last administered on 02/05/17 21:03; Start 02/05/17 at 21:00; Stop 02/05/17 at 21:53; Status DC Levofloxacin/ Dextrose 150 ml @ 100 mls/hr Q24H IV Last administered on 12:03; Start 02/06/17 at 12:00 Vancomycin HCl 1.75 gm/Dextrose/ Sodium Chloride 500 ml @ 250 mls/hr Q18H IV Last administered on 02/06/17 08:33; Start 02/06/17 at 07:00 Vancomycin HCl 1 each 1X ONCE MC ; Start 02/07/17 at 00:30; Stop 02/07/17 at 00:31 Methylprednisolone Sodium Succinate (SOLU-Medrol 40MG VIAL) 40 mg Q8HRS IV Last administered on 02/06/17 05:36; Start 02/05/17 at 16:00 Enoxaparin Sodium (Lovenox 40mg Syringe) 40 mg Q24H SQ Last administered on 16:24; Start 02/05/17 at 16:00; Stop 02/05/17 at 21:19; Status DC Aspirin (Children'S Aspirin) 81 mg DAILY PO Last administered on 02/06/17 10: 32; Start 02/06/17 at 09:00 Diltiazem HCl (Cardizem 24hr Cd) 120 mg QHS PO Last administered on 02/05/17 21:04; Start 02/05/17 at 21:00 Ferrous Sulfate (Feosol) 325 mg BID PO Last administered on 02/06/17 10:32; Start 02/05/17 at 21:00 Acetaminophen/ Hydrocodone Bitart (Lortab 7.5/325) 2 tab PRN Q6HRS PRN PO PAIN ; Start 02/05/17 at 17:15 Levothyroxine Sodium (Synthroid) 137 mcg DAILYAC PO Last administered on 10:32; Start 02/06/17 at 07:30 Warfarin Sodium (Coumadin) 5 mg DAILY16 PO Last administered on 02/05/17 21: 58; Start 02/05/17 at 22:00 Citalopram Hydrobromide (CeleXA) 40 mg DAILY PO Last administered on 10:32; Start 02/06/17 at 09:00 Glimepiride (Amaryl) 4 mg BIDWMEALS PO Last administered on 02/06/17 08:32; Start 02/05/17 at 17:30 Losartan Potassium (Cozaar) 25 mg DAILY PO ; Start 02/06/17 at 09:00; Stop at 11:22; Status DC Atorvastatin Calcium (Lipitor) 80 mg QHS PO Last administered on 02/05/17 21: 04; Start 02/05/17 at 21:00 Insulin Aspart (NovoLOG) 0-12 UNITS QIDACHS SQ Last administered on 02/06/17 12:03; Start 02/05/17 at 18:00 Norepinephrine Bitartrate 250 ml @ 0 mls/hr CONT PRN IV SEE I/O RECORD; Start 02/05/17 at 19:00 Albuterol/ Ipratropium (Duoneb) 3 ml STK-MED ONCE .ROUTE ; Start 02/05/17 at 19 :16; Stop 02/05/17 at 19:17; Status DC Meropenem (Merrem) 1 gm Q8HRS IVP Last administered on 02/06/17t 05:36; Start 02/06/17 at 06:00 Warfarin Sodium (Coumadin Per Physician) 1 each PRN DAILY PRN MC SEE COMMENTS; Start 02/06/17 at 07:45 Lactobacillus Rhamnosus (Culturelle) 1 cap BID PO Last administered on t 10:32; Start 02/06/17 at 09:00 Active Scripts Active Reported Ferrous Sulfate 325 Mg Tablet 1 Tab PO BID LAST DOSE GIVEN: DATE:01/08/17 TIME:9:00 a.m. Warfarin Sodium 5 Mg Tablet 1 Tab PO DAILY 30 Days LAST DOSE GIVEN: DATE:01/08/17 TIME:2:00 p.m Levothyroxine Sodium 137 Mcg Tablet 137 Mcg PO DAILYAC LAST DOSE GIVEN: DATE:01/08/17 TIME:7:30 a.m. Furosemide 40 Mg Tablet 40 Mg PO DAILY LAST DOSE GIVEN: DATE:01/07/17 TIME:9:00 a.m. Aspirin 81 Mg Tab.chew 1 Tab PO DAILY LAST DOSE GIVEN: DATE:01/08/17 TIME:9:00 a.m. Hydrocodone-Apap 7.5-325 (Hydrocodone Bit/Acetaminophen) 1 Each Tablet 1-2 Tab PO PRN Q6HRS PRN Took at 12:30 today may take anytime as needed for pain every 4 hours Amaryl (Glimepiride) 4 Mg Tablet 1 Tab PO BID LAST DOSE GIVEN: DATE:01/08/17 TIME:9:00 a.m. Potassium Chloride 20 Meq Tab.er.prt 1 Tab PO WEEKLY Meds not given this hospital admission. May resume home medications as approved by Physician. TIME: 8:30 a.m. NEXT DOSE DUE: DATE: 12-28-15 TIME: 8:30 a.m. Metolazone 5 Mg Tablet 5 Mg PO WEEKLY Meds not given this hospital admission. May resume home medications as approved by Physician. TIME: 8:30 a.m. NEXT DOSE DUE: DATE: 12-28-15 TIME: 8:30 a.m. Lexapro (Escitalopram Oxalate) 10 Mg Tablet 20 Mg PO DAILY LAST DOSE GIVEN: DATE:01/08/17 TIME:9:00 a.m. NEXT DOSE DUE: DATE: 12-28-15 TIME: 8:30 a.m. Cardizem Cd (Diltiazem Hcl) 240 Mg Cap.er.24h 120 Mg PO HS LAST DOSE GIVEN: DATE:01/07/17 TIME:9:00 p.m. NEXT DOSE DUE: DATE: 12-27-15 TIME: 9:00 p.m. Losartan Potassium 100 Mg Tablet 25 Mg PO DAILY LAST DOSE GIVEN: DATE:01/07/17 TIME:9:00 a.m. Crestor (Rosuvastatin Calcium) 40 Mg Tablet 40 Mg PO QHS LAST DOSE GIVEN: DATE:01/07/17 TIME:9:00 p.m. NEXT DOSE DUE: DATE: 12-27-15 TIME: 9:00 p.m. Vitals/I & O Vital Sign - Last 24 Hours 02/05/17 02/05/17 02/05/17 02/05/17 14:00 14:15 14:30 14:45 Temp 99.9 99.9 Pulse 115 108 100 96 Resp 22 22 22 B/P (MAP) 109/67 (81) 102/63 (76) 99/58 (72) 94/58 (70) Pulse Ox 100 100 100 99 O2 Delivery BiPAP/CPAP BiPAP/CPAP BiPAP/CPAP BiPAP/CPAP 02/05/17 02/05/17 02/05/17 02/05/17 15:00 15:00 15:31 16:00 Pulse 100 104 Resp 22 23 B/P (MAP) 96/56 (69) 104/62 (76) Pulse Ox 99 99 99 O2 Delivery BiPAP/CPAP Bi-pap BiPAP/CPAP BiPAP/CPAP 02/05/17 02/05/17 02/05/17 02/05/17 16:59 17:00 18:35 19:00 Temp 99.9 99.9 Pulse 104 127 104 Resp 23 24 28 B/P (MAP) 104/62 (76) 121/63 (82) 98/66 (77) Pulse Ox 98 99 99 95 O2 Delivery BiPAP/CPAP BiPAP/CPAP BiPAP/CPAP Nasal Cannula O2 Flow Rate 4.0 02/05/17 02/05/17 02/05/17 02/05/17 20:00 20:00 20:56 21:00 Temp 97.9 97.9 Pulse 111 96 Resp 32 19 B/P (MAP) 115/71 (86) 111/60 (77) Pulse Ox 100 98 98 O2 Delivery Bi-pap BiPAP/CPAP BiPAP/CPAP BiPAP/CPAP 02/05/17 02/05/17 02/05/17 02/05/17 21:04 22:00 23:00 23:24 Pulse 102 100 88 Resp 28 19 B/P (MAP) 111/60 99/59 (72) 91/57 (68) Pulse Ox 99 99 98 O2 Delivery BiPAP/CPAP BiPAP/CPAP BiPAP/CPAP 02/06/17 02/06/17 02/06/17 02/06/17 00:00 00:00 01:00 02:00 Temp 97.8 97.8 Pulse 79 99 93 Resp 19 25 28 B/P (MAP) 100/45 (63) 99/65 (76) 115/84 (94) Pulse Ox 99 97 96 O2 Delivery Bi-pap BiPAP/CPAP Nasal Cannula Nasal Cannula O2 Flow Rate 4.0 4.0 02/06/17 02/06/17 02/06/17 02/06/17 03:00 03:26 04:00 04:00 Temp 97.3 97.3 Pulse 80 78 Resp 29 35 B/P (MAP) 112/70 (84) 103/54 (70) Pulse Ox 94 100 100 O2 Delivery BiPAP/CPAP BiPAP/CPAP BiPAP/CPAP Bi-pap 02/06/17 02/06/17 02/06/17 02/06/17 05:00 05:23 06:00 07:00 Pulse 76 74 72 Resp 20 19 19 B/P (MAP) 86/52 (63) 95/53 (67) 105/59 (74) Pulse Ox 100 100 100 100 O2 Delivery BiPAP/CPAP BiPAP/CPAP BiPAP/CPAP BiPAP/CPAP 12/02/06/17 02/06/17 02/06/17 08:00 08:00 08:00 09:00 Temp 98.0 98.0 Pulse 92 118 Resp 31 35 B/P (MAP) 109/73 (85) 107/83 (91) Pulse Ox 100 100 O2 Delivery Nasal Cannula Nasal Cannula Nasal Cannula O2 Flow Rate 4.0 4.0 4.0 4.0 02/06/17 02/06/17 02/06/17 02/06/17 09:00 09:36 09:47 10:00 Pulse 81 100 Resp 26 B/P (MAP) 98/62 98/62 (74) Pulse Ox 100 99 O2 Delivery Nasal Cannula BiPAP/CPAP BiPAP/CPAP O2 Flow Rate 4.0 02/06/17 02/06/17 02/06/17 02/06/17 11:00 12:00 12:00 13:07 Pulse 100 Resp 22 B/P (MAP) 112/71 (85) Pulse Ox 100 O2 Delivery BiPAP/CPAP Nasal Cannula Nasal Cannula O2 Flow Rate 4.0 4.0 3.0 Intake and Output 02/05/17 02/05/17 02/06/17 14:59 22:59 06:59 Intake Total 2150 ml 1500 ml 433 ml Output Total 1 ml Balance 2150 ml 1500 ml 432 ml CRYSTAL ARCHULETA MD Feb 06, 2017 13:53
[2017-02-06] MEDS: WARFARIN 5 MG TABLET. PO SCH (16:33)
[2017-02-06] MEDS: ALPRAZolam 0.5 MG TABLET PO PRN (17:42)
[2017-02-06] MEDS: HYDROcodone/APAP 7.5/325MG 1 TAB TABLET PO PRN (18:32)
[2017-02-06] MEDS: ATORVASTATIN CALCIUM 40 MG TABLET. PO SCH (20:43)
[2017-02-07] VITALS (23 sets, daily range): BP systolic 86–121; BP diastolic 51–78
[2017-02-07] MEDS: VANCOMYCIN 1.75 GM in IV DEXTROSE 5 %-0.45 % NACL 500 ML IV SCH ×2 (01:28→19:48)
[2017-02-07] MEDS: VANCOMYCIN PER PHARMACY MC PRN (01:51)
[2017-02-07 05:48] LABS: BASO % 0 % (0-3); EOS % 0 % (0-3); HEMATOCRIT 23.6 % (36.0-47.0); HEMOGLOBIN 7.7 g/dL (12.0-15.5); LYMPH # 0.4 x10^3/uL (1.0-4.8); LYMPH % 6 % (24-48); MEAN CORPUSCULAR HEMOGLOBIN 29 pg (25-35); MEAN CORPUSCULAR HGB CONC 33 g/dL (31-37); MEAN CORPUSCULAR VOLUME 90 fL (79-100); MONO % 6 % (0-9); NEUT % 88 % (31-73); PLATELET COUNT 372 x10^3/uL (140-400); RED BLOOD COUNT 2.63 x10^6/uL (3.50-5.40); RED CELL DISTRIBUTION WIDTH 16.9 % (11.5-14.5); WHITE BLOOD COUNT 6.8 x10^3/uL (4.0-11.0)
[2017-02-07] MEDS: methylPREDNISolone SOD SUCC PF 40 MG/ML VIAL. IV SCH ×3 (06:40→21:33)
[2017-02-07] MEDS: HYDROcodone/APAP 7.5/325MG 1 TAB TABLET PO PRN ×2 (06:41→17:45)
[2017-02-07] MEDS: MEROPENEM IV Push 1 GM VIAL. IVP SCH ×3 (06:41→21:32)
[2017-02-07] MEDS: IPRATRPIUM/ALBUTEROL 0.5/2.5MG 3 ML NEBU. NEB SCH ×4 (08:24→20:13)
[2017-02-07] MEDS: LEVOTHYROXINE 137 MCG TABLET PO SCH (08:48)
[2017-02-07] MEDS: CITALOPRAM 20 MG TABLET. PO SCH (08:48)
[2017-02-07] MEDS: LACTOBACILLUS RHAMNOSUS GG 1 CAPSULE. PO SCH ×2 (08:48→21:29)
[2017-02-07] MEDS: GLIMEPIRIDE 2 MG TABLET. PO SCH ×2 (08:48→17:40)
[2017-02-07] MEDS: FERROUS SULFATE 325 MG TABLET. PO SCH ×2 (08:48→21:29)
[2017-02-07] MEDS: ASPIRIN CHEWABLE 81 MG TABLET. PO SCH (08:48)
[2017-02-07] MEDS: INSULIN ASPART 300 UNITS/3 ML INSULN.PEN SQ SCH ×4 (08:53→21:32)
--- NOTE | 2017-02-07 09:25 | PDOC ---
Infectious Disease Note Subjective Subjective Lost IV access, waiting for line c/o left knee ache - stable Dry cough No BM 3 days Diminished appetite, no taste ROS ROS GEN: Denies fevers, chills, sweats CV: Denies chest pain RESP: Denies shortness of air GI: Denies n/v/d Vital Sign Vital Signs Vital Signs Date Time Temp Pulse Resp B/P (MAP) Pulse Ox O2 Delivery O2 Flow Rate FiO2 02/07/17 08:00 98 BiPAP/CPAP 02/07/17 07:45 28 02/07/17 06:41 3.0 02/07/17 06:00 93 93/60 (71) 02/07/17 03:00 97.6 97.6 Physical Exam PHYSICAL EXAM GENERAL: Sitting in the chair, eating LUNGS: Diminished aeration bases, nonlabored HEART: S1S2, irregular ABD: Obese, soft, NT EXT: BLE edema, no cyanosis. left knee warm, no redness or drainage DE ICER: Alert, oriented x 3, no focal neurologic deficit SKIN: No rash IV: not working Labs Lab Laboratory Tests Test 02/06/17 09:30 02/06/17 12:02 02/06/17 16:35 02/06/17 20:45 O2 Saturation 95 % (92-99) Arterial Blood pH 7.31 (7.35-7.45) Arterial Blood pCO2 at Patient Temp 64 mmHg (35-46) Arterial Blood pO2 at Patient Temp 80 mmHg (65-108) Arterial Blood HCO3 32 mmol/L (21-28) Arterial Blood Base Excess 4 mmol/L (-3-3) FiO2 4 lpm nc Glucose (Fingerstick) 246 mg/dL (70-99) 198 mg/dL (70-99) 229 mg/dL (70-99) Test 02/07/17 00:30 02/07/17 03:30 02/07/17 08:51 Vancomycin Level Trough 14.6 mcg/mL (10.0-20.0) Vancomycin Last Dose Date 02/06/17 Vancomycin Last Dose Time 0700 White Blood Count 6.8 x10^3/uL (4.0-11.0) Red Blood Count 2.63 x10^6/uL (3.50-5.40) Hemoglobin 7.7 g/dL (12.0-15.5) Hematocrit 23.6 % (36.0-47.0) Mean Corpuscular Volume 90 fL (79-100) Mean Corpuscular Hemoglobin 29 pg (25-35) Mean Corpuscular Hemoglobin Concent 33 g/dL (31-37) Red Cell Distribution Width 16.9 % (11.5-14.5) Platelet Count 372 x10^3/uL (140-400) Neutrophils (%) (Auto) 88 % (31-73) Lymphocytes (%) (Auto) 6 % (24-48) Monocytes (%) (Auto) 6 % (0-9) Eosinophils (%) (Auto) 0 % (0-3) Basophils (%) (Auto) 0 % (0-3) Neutrophils # (Auto) 6.0 x10^3uL (1.8-7.7) Lymphocytes # (Auto) 0.4 x10^3/uL (1.0-4.8) Monocytes # (Auto) 0.4 x10^3/uL (0.0-1.1) Eosinophils # (Auto) 0.0 x10^3/uL (0.0-0.7) Basophils # (Auto) 0.0 x10^3/uL (0.0-0.2) Glucose (Fingerstick) 185 mg/dL (70-99) Micro BLD CULT RESULT 1 Preliminary Coagulase negative Staphylococcus species. (1 of 4 bottles) Objective Assessment GPC in clusters bacteremia (1 of 4 bottles so far), ? contaminate. CoNS Leukopenia - improved Respiratory failure Pneumonia Left knee and leg cellulitis, ? TKA infection Obesity Fever - resolved COPD Warfarin therapy Plan Plan of Care vanc, meropenem and Levaquin Trough 14.6 await PICC placement ortho to decide aspiration of knee Pt seen and examined d/w RN Doing better Less lt knee pain Continue same D/W JOCELYN COATS APRN Feb 07, 2017 09:25 BRITTANIE HERNANDEZ MD Feb 07, 2017 14:16
--- NOTE | 2017-02-07 09:52 | PDOC ---
SUBJECTIVE Subjective Pt sitting up in chair, has just finished eating wearing nasal canula. Pt feeling well. Feels that her breathing is improved. Slightly dyspneic with talking, better when resting. Slight pain in left knee but states that it is not significant. OBJECTIVE Vital Signs Vital Signs Date Time Temp Pulse Resp B/P (MAP) Pulse Ox O2 Delivery O2 Flow Rate FiO2 02/07/17 08:00 98 BiPAP/CPAP 02/07/17 07:45 28 92 BiPAP/CPAP 02/07/17 06:41 18 96 3.0 02/07/17 06:00 93 26 93/60 (71) 96 Nasal Cannula 3.0 02/07/17 05:00 120 21 108/59 (75) 96 Nasal Cannula 3.0 02/07/17 04:00 Bi-pap 02/07/17 04:00 3.0 02/07/17 04:00 112 21 121/78 (92) 96 Nasal Cannula 3.0 02/07/17 03:08 97 BiPAP/CPAP 02/07/17 03:00 97.6 109 15 111/76 (88) 100 BiPAP/CPAP 97.6 02/07/17 02:00 86 18 101/60 (74) 98 BiPAP/CPAP 02/07/17 01:06 99 BiPAP/CPAP 02/07/17 01:00 92 17 99/65 (76) 98 BiPAP/CPAP 02/07/17 00:59 Bi-pap 02/07/17 00:00 81 19 102/65 (77) 97 BiPAP/CPAP 02/06/17 23:00 97.8 118 18 115/68 (84) 97 BiPAP/CPAP 97.8 02/06/17 22:00 119 27 102/66 (78) 97 Nasal Cannula 3.0 02/06/17 21:00 124 23 100/70 (80) 96 Nasal Cannula 3.0 02/06/17 20:43 105 100/70 02/06/17 20:00 4.0 02/06/17 20:00 97.8 90 20 88/72 (77) 98 BiPAP/CPAP 97.8 02/06/17 20:00 Nasal Cannula 3.0 02/06/17 19:40 99 BiPAP/CPAP 02/06/17 19:00 92 19 106/61 (76) 97 BiPAP/CPAP 02/06/17 18:32 27 97 Nasal Cannula 02/06/17 18:00 119 24 83/54 (64) 93 Nasal Cannula 2.0 02/06/17 17:00 104 21 98/74 (82) 98 Nasal Cannula 2.0 02/06/17 16:49 99 BiPAP/CPAP 02/06/17 16:00 Nasal Cannula 2.0 02/06/17 16:00 3.0 02/06/17 16:00 97.4 130 32 107/76 (86) 97 Nasal Cannula 2.0 97.4 02/06/17 15:00 100 21 105/69 (81) 95 BiPAP/CPAP 02/06/17 14:00 116 40 122/73 (89) 96 BiPAP/CPAP 02/06/17 13:07 Nasal Cannula 3.0 02/06/17 13:00 118 33 119/75 (90) 96 BiPAP/CPAP 02/06/17 12:00 97.7 76 19 113/73 (86) 99 BiPAP/CPAP 97.7 02/06/17 12:00 Nasal Cannula 4.0 02/06/17 12:00 4.0 02/06/17 11:00 100 22 112/71 (85) 100 BiPAP/CPAP 02/06/17 10:00 100 26 98/62 (74) 99 BiPAP/CPAP 02/06/17 09:47 100 BiPAP/CPAP I & O Intake and Output 02/07/17 07:00 Intake Total 980 ml Balance 980 ml Intake Oral 450 ml IV Total 500 ml Other 30 ml # Voids 8 PHYSICAL EXAM Physical Exam GEN: NAD, AOx3 HEENT: MMM, EOMI, no scleral icterus/injection Cardiac: irregular, tachycardic, no M/R/G Lungs: regular breathing rate and effort, becomes slightly dyspneic while talking, faint end expiratory wheezes and rhonchi Abd: soft, non distended, NTTP Ext: 2+ pitting edema LE bilaterally, chronic venous stasis changes RLE, erythema in left knee and LLE has completely resolved Neuro: CN2-12 GI ASSESSMENT/PLAN Assessment/Plan Pt is a 76yo CF admitted for sepsis and respiratory failure 1)Acute on chronic respiratory failure- likely multifactorial. Pt has COPD, CHF , pulmonary HTN and is currently being treated for PNA. Pulmonary is following and has been on Bipap, but has been on NC for the past hour because she was eating. O2 sats are WNL and pt appears comfortable, will grab an ABG. 2)Sepsis- likely multifactorial. Pt being treated for UTI, PNA and possible knee infection. Infectious Disease is following. U/A appeared to be a dirty specimen and urine culture did not grow any bacteria. Pt was being treated for a UTI at [place] with multiple resistances. Pt had positive blood culture in 1/4 bottle for coag negative staph, possible contaminant. Pt's left knee had been erythematous which has improved since admission. Pt currently receiving Vancomycin, Levaquin, Meropenem 3)PNA- see above 4)Blood culture + gram positive cocci 1/4 bottles, possible contaminant- see above 5)COPD- pt continued on breathing treatments. Pt is receiving IV steroids 6)Acute on chronic diastolic congestive heart failure- Cardiology following. 7)Pulmonary HTN 8)Atrial fibrillation- pt is currently tachycardic, but pt's blood pressure is on the lower side. Cardiology following; currently receiving Warfarin and Diltiazem 9)Obstructive sleep apnea. 10)Aortic stenosis. 11)Hypertension- BP meds currently held, slighty hyoptensive 12)Type 2 diabetes- HbA1C this admission is 6.6 but blood sugars currently uncontrolled. Receiving Glimepiride 4mg BID and SSI (has received 12 units over last 24 hours). CTM. Will start Metformin 13)Hypothyroidism- well controlled with normal TSH this admission. Pt receiving Levothyroxine 137mcg 14)Generalized anxiety disorder- pt continued on Citalopram 40mg and started on Xanax 0.5mg TID 15)Severe protein-calorie malnutrition 16)HLD- pt continued on Atorvastatin 80mg 17)Anemia- pt has received 3 units of PRBC over the last week and a half. Pt had not been complaining of any active bleeding, no dark stools, etc. There was concern of some blood loss from surgery. FOBT pending. Hb currently stable at 7.7 -Pt is not wanting to be DC'd to [facility], would like to go to [facility] when she is discharged Problems: COMMENT Lab Laboratory Tests Test 02/06/17 12:02 02/06/17 16:35 02/06/17 20:45 02/07/17 00:30 Glucose (Fingerstick) 246 mg/dL (70-99) 198 mg/dL (70-99) 229 mg/dL (70-99) Vancomycin Level Trough 14.6 mcg/mL (10.0-20.0) Vancomycin Last Dose Date 02/06/17 Vancomycin Last Dose Time 0700 Test 02/07/17 03:30 02/07/17 08:51 White Blood Count 6.8 x10^3/uL (4.0-11.0) Red Blood Count 2.63 x10^6/uL (3.50-5.40) Hemoglobin 7.7 g/dL (12.0-15.5) Hematocrit 23.6 % (36.0-47.0) Mean Corpuscular Volume 90 fL (79-100) Mean Corpuscular Hemoglobin 29 pg (25-35) Mean Corpuscular Hemoglobin Concent 33 g/dL (31-37) Red Cell Distribution Width 16.9 % (11.5-14.5) Platelet Count 372 x10^3/uL (140-400) Neutrophils (%) (Auto) 88 % (31-73) Lymphocytes (%) (Auto) 6 % (24-48) Monocytes (%) (Auto) 6 % (0-9) Eosinophils (%) (Auto) 0 % (0-3) Basophils (%) (Auto) 0 % (0-3) Neutrophils # (Auto) 6.0 x10^3uL (1.8-7.7) Lymphocytes # (Auto) 0.4 x10^3/uL (1.0-4.8) Monocytes # (Auto) 0.4 x10^3/uL (0.0-1.1) Eosinophils # (Auto) 0.0 x10^3/uL (0.0-0.7) Basophils # (Auto) 0.0 x10^3/uL (0.0-0.2) Glucose (Fingerstick) 185 mg/dL (70-99) BRIANA DENNEY MD Feb 07, 2017 09:52
--- NOTE | 2017-02-07 10:15 | PDOC ---
PULMONARY PROGRESS NOTES Subjective could not tolerate off BIPAP/ had increasing Resp. acidosis now better, on canula Vitals Vital Signs Date Time Temp Pulse Resp B/P (MAP) Pulse Ox O2 Delivery O2 Flow Rate FiO2 02/07/17 09:00 130 37 86/59 (68) 99 Nasal Cannula 2.0 02/07/17 08:00 98.1 98.1 ROS: No Nausea, No Chest Pain, No Abdominal Pain, No Increase Cough General: Alert, No acute distress Lungs: Clear Cardiovascular: S1, S2 Abdomen: Soft Neuro Exam: Alert Extremities: Other (2+edema) Labs Laboratory Tests Test 02/05/17 11:50 02/05/17 17:10 02/05/17 18:40 02/05/17 20:30 Urine Collection Type U cath Urine Color Yellow Urine Clarity Turbid Urine pH 6.0 Urine Specific Wray 1.020 Urine Protein 100 mg/dL (NEG-TRACE) Urine Glucose (UA) Negative mg/dL (NEG) Urine Ketones (Stick) Negative mg/dL (NEG) Urine Blood Small (NEG) Urine Nitrite Positive (NEG) Urine Bilirubin Negative (NEG) Urine Urobilinogen Dipstick 0.2 mg/dL (0.2 mg/dL) Urine Leukocyte Esterase Small (NEG) Urine RBC 3-5 /HPF (0-2) Urine WBC 11-20 /HPF (0-4) Urine Squamous Epithelial Cells Many /LPF Urine Amorphous Sediment Present /HPF Urine Bacteria Many /HPF (0-FEW) Urine Mucus Marked /LPF O2 Saturation 94 % (92-99) Arterial Blood pH 7.36 (7.35-7.45) Arterial Blood pCO2 at Patient Temp 54 mmHg (35-46) Arterial Blood pO2 at Patient Temp 73 mmHg (65-108) Arterial Blood HCO3 30 mmol/L (21-28) Arterial Blood Base Excess 4 mmol/L (-3-3) FiO2 40 Glucose (Fingerstick) 175 mg/dL (70-99) Prothrombin Time 20.2 SEC (11.7-14.0) Prothromb Time International Ratio 1.9 (0.8-1.1) Test 02/05/17 21:03 02/06/17 04:45 02/06/17 08:34 02/06/17 09:30 Glucose (Fingerstick) 201 mg/dL (70-99) 159 mg/dL (70-99) White Blood Count 2.5 x10^3/uL (4.0-11.0) Red Blood Count 2.64 x10^6/uL (3.50-5.40) Hemoglobin 7.4 g/dL (12.0-15.5) Hematocrit 23.8 % (36.0-47.0) Mean Corpuscular Volume 90 fL (79-100) Mean Corpuscular Hemoglobin 28 pg (25-35) Mean Corpuscular Hemoglobin Concent 31 g/dL (31-37) Red Cell Distribution Width 17.1 % (11.5-14.5) Platelet Count 376 x10^3/uL (140-400) Neutrophils (%) (Auto) 85 % (31-73) Lymphocytes (%) (Auto) 9 % (24-48) Monocytes (%) (Auto) 6 % (0-9) Eosinophils (%) (Auto) 0 % (0-3) Basophils (%) (Auto) 0 % (0-3) Neutrophils # (Auto) 2.2 x10^3uL (1.8-7.7) Lymphocytes # (Auto) 0.2 x10^3/uL (1.0-4.8) Monocytes # (Auto) 0.1 x10^3/uL (0.0-1.1) Eosinophils # (Auto) 0.0 x10^3/uL (0.0-0.7) Basophils # (Auto) 0.0 x10^3/uL (0.0-0.2) Sodium Level 139 mmol/L (136-145) Potassium Level 4.5 mmol/L (3.5-5.1) Chloride Level 102 mmol/L (98-107) Carbon Dioxide Level 32 mmol/L (21-32) Anion Gap 5 (6-14) Blood Urea Nitrogen 15 mg/dL (7-20) Creatinine 0.8 mg/dL (0.6-1.0) Estimated GFR (Cockcroft-Gault) 69.4 BUN/Creatinine Ratio 19 (6-20) Glucose Level 179 mg/dL (70-99) Hemoglobin A1c 6.6 % (4.8-5.6) Calcium Level 8.4 mg/dL (8.5-10.1) Total Bilirubin 0.3 mg/dL (0.2-1.0) Aspartate Amino Transf (AST/SGOT) 22 U/L (15-37) Alanine Aminotransferase (ALT/SGPT) 22 U/L (14-59) Alkaline Phosphatase 72 U/L (46-116) Total Protein 6.1 g/dL (6.4-8.2) Albumin 1.9 g/dL (3.4-5.0) Albumin/Globulin Ratio 0.5 (1.0-1.7) Thyroid Stimulating Hormone (TSH) 0.695 uIU/mL (0.358-3.74) O2 Saturation 95 % (92-99) Arterial Blood pH 7.31 (7.35-7.45) Arterial Blood pCO2 at Patient Temp 64 mmHg (35-46) Arterial Blood pO2 at Patient Temp 80 mmHg (65-108) Arterial Blood HCO3 32 mmol/L (21-28) Arterial Blood Base Excess 4 mmol/L (-3-3) FiO2 4 lpm nc Test 02/06/17 12:02 02/06/17 16:35 02/06/17 20:45 02/07/17 00:30 Glucose (Fingerstick) 246 mg/dL (70-99) 198 mg/dL (70-99) 229 mg/dL (70-99) Vancomycin Level Trough 14.6 mcg/mL (10.0-20.0) Vancomycin Last Dose Date 02/06/17 Vancomycin Last Dose Time 0700 Test 02/07/17 03:30 02/07/17 08:51 White Blood Count 6.8 x10^3/uL (4.0-11.0) Red Blood Count 2.63 x10^6/uL (3.50-5.40) Hemoglobin 7.7 g/dL (12.0-15.5) Hematocrit 23.6 % (36.0-47.0) Mean Corpuscular Volume 90 fL (79-100) Mean Corpuscular Hemoglobin 29 pg (25-35) Mean Corpuscular Hemoglobin Concent 33 g/dL (31-37) Red Cell Distribution Width 16.9 % (11.5-14.5) Platelet Count 372 x10^3/uL (140-400) Neutrophils (%) (Auto) 88 % (31-73) Lymphocytes (%) (Auto) 6 % (24-48) Monocytes (%) (Auto) 6 % (0-9) Eosinophils (%) (Auto) 0 % (0-3) Basophils (%) (Auto) 0 % (0-3) Neutrophils # (Auto) 6.0 x10^3uL (1.8-7.7) Lymphocytes # (Auto) 0.4 x10^3/uL (1.0-4.8) Monocytes # (Auto) 0.4 x10^3/uL (0.0-1.1) Eosinophils # (Auto) 0.0 x10^3/uL (0.0-0.7) Basophils # (Auto) 0.0 x10^3/uL (0.0-0.2) Glucose (Fingerstick) 185 mg/dL (70-99) Laboratory Tests Test 02/06/17 12:02 02/06/17 16:35 02/06/17 20:45 02/07/17 00:30 Glucose (Fingerstick) 246 mg/dL (70-99) 198 mg/dL (70-99) 229 mg/dL (70-99) Vancomycin Level Trough 14.6 mcg/mL (10.0-20.0) Vancomycin Last Dose Date 02/06/17 Vancomycin Last Dose Time 0700 Test 02/07/17 03:30 02/07/17 08:51 White Blood Count 6.8 x10^3/uL (4.0-11.0) Red Blood Count 2.63 x10^6/uL (3.50-5.40) Hemoglobin 7.7 g/dL (12.0-15.5) Hematocrit 23.6 % (36.0-47.0) Mean Corpuscular Volume 90 fL (79-100) Mean Corpuscular Hemoglobin 29 pg (25-35) Mean Corpuscular Hemoglobin Concent 33 g/dL (31-37) Red Cell Distribution Width 16.9 % (11.5-14.5) Platelet Count 372 x10^3/uL (140-400) Neutrophils (%) (Auto) 88 % (31-73) Lymphocytes (%) (Auto) 6 % (24-48) Monocytes (%) (Auto) 6 % (0-9) Eosinophils (%) (Auto) 0 % (0-3) Basophils (%) (Auto) 0 % (0-3) Neutrophils # (Auto) 6.0 x10^3uL (1.8-7.7) Lymphocytes # (Auto) 0.4 x10^3/uL (1.0-4.8) Monocytes # (Auto) 0.4 x10^3/uL (0.0-1.1) Eosinophils # (Auto) 0.0 x10^3/uL (0.0-0.7) Basophils # (Auto) 0.0 x10^3/uL (0.0-0.2) Glucose (Fingerstick) 185 mg/dL (70-99) Medications Active Scripts Medications Dose Route/Sig Max Daily Dose Days Date Category Dose Instructions Ferrous Sulfate 325 Mg Tablet 1 Tab PO BID 01/08/17 Reported LAST DOSE GIVEN: DATE:01/08/17 TIME:9:00 a.m. Warfarin Sodium 5 Mg Tablet 1 Tab PO DAILY 30 01/08/17 Reported LAST DOSE GIVEN: DATE:01/08/17 TIME:2:00 p.m Levothyroxine Sodium 137 Mcg Tablet 137 Mcg PO DAILYAC 01/04/17 Reported LAST DOSE GIVEN: DATE:01/08/17 TIME:7:30 a.m. Furosemide 40 Mg Tablet 40 Mg PO DAILY 01/04/17 Reported LAST DOSE GIVEN: DATE:01/07/17 TIME:9:00 a.m. Aspirin 81 Mg Tab.chew 1 Tab PO DAILY 11/16/16 Reported LAST DOSE GIVEN: DATE:01/08/17 TIME:9:00 a.m. Hydrocodone-Apap 7.5-325 (Hydrocodone Bit/Acetaminophen) 1 Each Tablet 1-2 Tab PO PRN Q6HRS PRN 12/26/15 Reported Took at 12:30 today may take anytime as needed for pain every 4 hours Amaryl (Glimepiride) 4 Mg Tablet 1 Tab PO BID 12/16/15 Reported LAST DOSE GIVEN: DATE:01/08/17 TIME:9:00 a.m. Potassium Chloride 20 Meq Tab.er.prt 1 Tab PO WEEKLY 04/17/15 Reported Meds not given this hospital admission. May resume home medications as approved by Physician. TIME: 8:30 a.m. NEXT DOSE DUE: DATE: 12-28-15 TIME: 8:30 a.m. Metolazone 5 Mg Tablet 5 Mg PO WEEKLY 04/16/15 Reported Meds not given this hospital admission. May resume home medications as approved by Physician. TIME: 8:30 a.m. NEXT DOSE DUE: DATE: 12-28-15 TIME: 8:30 a.m. Lexapro (Escitalopram Oxalate) 10 Mg Tablet 20 Mg PO DAILY 05/01/13 Reported LAST DOSE GIVEN: DATE:01/08/17 TIME:9:00 a.m. NEXT DOSE DUE: DATE: 12-28-15 TIME: 8:30 a.m. Cardizem Cd (Diltiazem Hcl) 240 Mg Cap.er.24h 120 Mg PO HS 05/01/13 Reported LAST DOSE GIVEN: DATE:01/07/17 TIME:9:00 p.m. NEXT DOSE DUE: DATE: 12-27-15 TIME: 9:00 p.m. Losartan Potassium 100 Mg Tablet 25 Mg PO DAILY 05/01/13 Reported LAST DOSE GIVEN: DATE:01/07/17 TIME:9:00 a.m. Crestor (Rosuvastatin Calcium) 40 Mg Tablet 40 Mg PO QHS 05/01/13 Reported LAST DOSE GIVEN: DATE:01/07/17 TIME:9:00 p.m. NEXT DOSE DUE: DATE: 12-27-15 TIME: 9:00 p.m. Impression . 1. Acute on chronic hypercapnic respiratory failure secondary to multifactorial etiologies including combination of sepsis, healthcare-associated pneumonia, worsening hypercapnia related to narcotic use as well and chronic obstructive pulmonary disease exacerbation, underlying JAYLIN/OHS. 2. Sepsis syndrome with fever and altered mental status. 3. Clinically, less likely congestive heart failure. 4. History of underlying chronic obstructive pulmonary disease with cor pulmonale and suspected obesity hypoventilation syndrome. 5. Moderate to severe protein-calorie malnutrition. 6. Abnormal chest x-ray with a right lower lobe infiltrate and possible retrocardiac infiltrate as well. The interstitial markings are slightly prominent, but they were present in October as well, and clinically, I do not think of congestive heart failure, more likely pneumonia. Plan . 1. Continue with present canula, prn BiPAP. 2. Follow ABGs while off BIPAP 3. Broad spectrum antibiotics to cover for gram-negative and gram-positive pneumonia. 4. sepsis protocol./ s/p IVF 5. Vasopressor if needed. 6. Last EF normal. 7. Broad spectrum antibiotic. 8. Follow all cultures. 9. Hold off any diuretics at present. 10. Improve nutritional status. 11. Discussed with RN and RT / PCP and will follow ALYSSA SLADE MD Feb 07, 2017 10:15
[2017-02-07] MEDS: ALPRAZolam 0.5 MG TABLET PO PRN (10:21)
--- NOTE | 2017-02-07 11:50 | RAD ---
Single view chest 02/07/2017 Clinical indication: PICC placement. Comparison: AP chest 02/05/2017, 02/04/2017, CTA chest 10/30/2011. Findings: Placement of a right-sided PICC with distal tip at the superior caval atrial junction level. Prior median sternotomy. Evaluation is limited due to portable technique and body habitus. There is moderate cardiomegaly and pulmonary venous congestion. There is mild bibasilar atelectasis with improved aeration in the right lung base since prior examination. There are multiple leads overlying the patient. Impression: 1. Placement of right-sided PICC with distal tip at the superior cavoatrial junction level. 2. Findings suggestive of CHF with cardiomegaly and pulmonary venous congestion.
[2017-02-07] MEDS: metFORMIN 500 MG TABLET PO SCH ×2 (12:05→17:39)
[2017-02-07 12:25] LABS: HCO3 ABG 31 mmol/L (21-28); PH ABG 7.33 (7.35-7.45); PO2 ABG 73 mmHg (65-108); SAT O2 ABG 93 % (92-99)
[2017-02-07 12:27] LABS: FIO2 ABG 28; PCO2 ABG 60 mmHg (35-46)
--- NOTE | 2017-02-07 14:18 | CONS ---
DATE OF CONSULTATION: REQUESTING PHYSICIAN: Dr. Mann, [facility] and perhaps Dr. Darius Meléndez. REASON FOR CONSULTATION: History of left knee surgery. HISTORY OF PRESENT ILLNESS: The patient is a 76-year-old female who was at [facility] for rehabilitation from a recent left knee surgery. She apparently had some altered mental status, has a history of COPD and CHF, and was found on admission to have a temperature of 100.3 in the Emergency Department. PAST MEDICAL HISTORY: Significant for atrial fibrillation, COPD, congestive heart failure, type 2 diabetes, hypertension, hypercholesterolemia. PAST SURGICAL HISTORY: Significant for knee arthroplasty with a left knee arthroplasty more recent within about the past 3-4 weeks, patellofemoral realignment procedure for instability. She also had a gastric coronary artery bypass graft, cholecystectomy, hysterectomy, cervical laminectomy, total knee on the contralateral side. MEDICATIONS: List is reviewed. ALLERGIES: INCLUDE CONTRAST DYE, PENICILLIN, BACTRIM AND SEAN INHIBITORS. SOCIAL HISTORY: Recently apparently moved from an independent living to an assisted living facility, but is currently at [facility] for rehabilitation. Denies alcohol, smoking or drug use. REVIEW OF SYSTEMS: Significant for the shortness of breath and fever. In terms of her left knee, she was on positive pressure ventilation, so it was somewhat difficult to understand history from the family; however, indicated that she has been getting along quite well with physical therapy and feels that the knee is stable and she has really had minimal complaints with it recently since the surgery aside from some stiffness in her brace initially, which is now resolving with additional therapy. PHYSICAL EXAMINATION: GENERAL: In the Intensive Care Unit, she has positive pressure ventilation, but appears to be otherwise alert and can communicate by speaking, difficult to understand, but is certainly alert with minimal respiratory distress on the positive pressure ventilation. She is able to move her upper extremities without any problem, shoulder, elbow and wrist. Examination of the left knee reveals a well-healed incision. There is no redness, warmth or erythema. In fact, she is equally display coordinator terms of bilateral knees where she has, on the contralateral knee, a well-healed incision as well. She has normal alignment of both, some mild swelling on the left side. No patellofemoral instability at all and has range of motion about full extension to approximately 70 degrees of knee flexion. Normal hip and ankle alignment stability bilaterally. She does have some moderate lower extremity edema bilaterally as well. She also has a well-healed incision from previous vein graft on the left leg medially. Laboratory values include a white count of 8.2, hemoglobin of 9.6. IMPRESSION: 1. Shortness of breath and low-grade fever. 2. History of chronic obstructive pulmonary disease and congestive heart failure with apparent exacerbation. 3. Stated diagnosis of sepsis. 4. Pneumonia. 5. History of left knee surgery. TREATMENT PLAN: I went over with her and her family that I really do not see any evidence of concern with her left knee currently. She obviously has symptoms of shortness of breath, exacerbation of COPD and some probable congestive heart failure with her lower extremity swelling. Aside from some slight swelling, I see no redness, warmth or erythema. She is not having pain in the knee; in fact, says it is stable and doing well with physical therapy at this point, I did talk with the patient and family about the possibility of drawing fluid off her knee; however, I think there is likely more bigger risk of potentially introducing infection than detecting anything based on the low degree of suspicion at present. She clearly has pneumonia. White blood cell count not particularly elevated, really has no evidence of any sign of infection with her knee whatsoever and there always is some small chance even with appropriate sterile technique of potentially introducing infection into a knee where there is an arthroplasty and recent surgery. Certainly, if she would have more pain and redness in the knee, etc., I would entertain aspiration if that appears warranted. Currently however, any pitting edema that she is symmetric in her lower extremities and I really do not even see any evidence of cellulitis or other concerning symptoms. Pending her improvement of medical status, she can certainly be up and around with physical therapy, weightbearing as tolerated on the knee with assistance as I expect she may have some weakness. Otherwise, I do not see any indication for other orthopedic intervention, but will follow along as appropriate. ASHWINI POWELL MD DR: MARRY/melva JOB#: [id number] / [id number] DARIUS Turner MD
--- NOTE | 2017-02-07 15:49 | PDOC ---
PROGRESS NOTES Subjective Subjective Patient on BiPAP. She is very adamant about requesting not to to go back to [facility] She is in A. fib with a controlled ventricular response Objective Objective Vital Signs Date Time Temp Pulse Resp B/P (MAP) Pulse Ox O2 Delivery O2 Flow Rate FiO2 02/07/17 13:00 117 27 119/67 (84) 91 Nasal Cannula 2.0 02/07/17 08:00 98.1 98.1 Intake and Output 02/07/17 07:00 Intake Total 980 ml Balance 980 ml Intake Oral 450 ml IV Total 500 ml Other 30 ml # Voids 8 Physical Exam Physical Exam No significant changes in cardiac exam. Decreased breath sounds with diffuse coarse crackles Assessment Assessment Patient seems to be slightly improving. Agree with present plan Comment Review of Relevant I have reviewed the following items donald (where applicable) has been applied. Labs Laboratory Tests Test 02/05/17 17:10 02/05/17 18:40 02/05/17 20:30 02/05/17 21:03 O2 Saturation 94 % (92-99) Arterial Blood pH 7.36 (7.35-7.45) Arterial Blood pCO2 at Patient Temp 54 mmHg (35-46) Arterial Blood pO2 at Patient Temp 73 mmHg (65-108) Arterial Blood HCO3 30 mmol/L (21-28) Arterial Blood Base Excess 4 mmol/L (-3-3) FiO2 40 Glucose (Fingerstick) 175 mg/dL (70-99) 201 mg/dL (70-99) Prothrombin Time 20.2 SEC (11.7-14.0) Prothromb Time International Ratio 1.9 (0.8-1.1) Test 02/06/17 04:45 02/06/17 08:34 02/06/17 09:30 02/06/17 12:02 White Blood Count 2.5 x10^3/uL (4.0-11.0) Red Blood Count 2.64 x10^6/uL (3.50-5.40) Hemoglobin 7.4 g/dL (12.0-15.5) Hematocrit 23.8 % (36.0-47.0) Mean Corpuscular Volume 90 fL (79-100) Mean Corpuscular Hemoglobin 28 pg (25-35) Mean Corpuscular Hemoglobin Concent 31 g/dL (31-37) Red Cell Distribution Width 17.1 % (11.5-14.5) Platelet Count 376 x10^3/uL (140-400) Neutrophils (%) (Auto) 85 % (31-73) Lymphocytes (%) (Auto) 9 % (24-48) Monocytes (%) (Auto) 6 % (0-9) Eosinophils (%) (Auto) 0 % (0-3) Basophils (%) (Auto) 0 % (0-3) Neutrophils # (Auto) 2.2 x10^3uL (1.8-7.7) Lymphocytes # (Auto) 0.2 x10^3/uL (1.0-4.8) Monocytes # (Auto) 0.1 x10^3/uL (0.0-1.1) Eosinophils # (Auto) 0.0 x10^3/uL (0.0-0.7) Basophils # (Auto) 0.0 x10^3/uL (0.0-0.2) Sodium Level 139 mmol/L (136-145) Potassium Level 4.5 mmol/L (3.5-5.1) Chloride Level 102 mmol/L (98-107) Carbon Dioxide Level 32 mmol/L (21-32) Anion Gap 5 (6-14) Blood Urea Nitrogen 15 mg/dL (7-20) Creatinine 0.8 mg/dL (0.6-1.0) Estimated GFR (Cockcroft-Gault) 69.4 BUN/Creatinine Ratio 19 (6-20) Glucose Level 179 mg/dL (70-99) Hemoglobin A1c 6.6 % (4.8-5.6) Calcium Level 8.4 mg/dL (8.5-10.1) Total Bilirubin 0.3 mg/dL (0.2-1.0) Aspartate Amino Transf (AST/SGOT) 22 U/L (15-37) Alanine Aminotransferase (ALT/SGPT) 22 U/L (14-59) Alkaline Phosphatase 72 U/L (46-116) Total Protein 6.1 g/dL (6.4-8.2) Albumin 1.9 g/dL (3.4-5.0) Albumin/Globulin Ratio 0.5 (1.0-1.7) Thyroid Stimulating Hormone (TSH) 0.695 uIU/mL (0.358-3.74) Glucose (Fingerstick) 159 mg/dL (70-99) 246 mg/dL (70-99) O2 Saturation 95 % (92-99) Arterial Blood pH 7.31 (7.35-7.45) Arterial Blood pCO2 at Patient Temp 64 mmHg (35-46) Arterial Blood pO2 at Patient Temp 80 mmHg (65-108) Arterial Blood HCO3 32 mmol/L (21-28) Arterial Blood Base Excess 4 mmol/L (-3-3) FiO2 4 lpm nc Test 02/06/17 16:35 02/06/17 20:45 02/07/17 00:30 02/07/17 03:30 Glucose (Fingerstick) 198 mg/dL (70-99) 229 mg/dL (70-99) Vancomycin Level Trough 14.6 mcg/mL (10.0-20.0) Vancomycin Last Dose Date 02/06/17 Vancomycin Last Dose Time 0700 White Blood Count 6.8 x10^3/uL (4.0-11.0) Red Blood Count 2.63 x10^6/uL (3.50-5.40) Hemoglobin 7.7 g/dL (12.0-15.5) Hematocrit 23.6 % (36.0-47.0) Mean Corpuscular Volume 90 fL (79-100) Mean Corpuscular Hemoglobin 29 pg (25-35) Mean Corpuscular Hemoglobin Concent 33 g/dL (31-37) Red Cell Distribution Width 16.9 % (11.5-14.5) Platelet Count 372 x10^3/uL (140-400) Neutrophils (%) (Auto) 88 % (31-73) Lymphocytes (%) (Auto) 6 % (24-48) Monocytes (%) (Auto) 6 % (0-9) Eosinophils (%) (Auto) 0 % (0-3) Basophils (%) (Auto) 0 % (0-3) Neutrophils # (Auto) 6.0 x10^3uL (1.8-7.7) Lymphocytes # (Auto) 0.4 x10^3/uL (1.0-4.8) Monocytes # (Auto) 0.4 x10^3/uL (0.0-1.1) Eosinophils # (Auto) 0.0 x10^3/uL (0.0-0.7) Basophils # (Auto) 0.0 x10^3/uL (0.0-0.2) Test 02/07/17 08:51 02/07/17 12:01 02/07/17 12:10 Glucose (Fingerstick) 185 mg/dL (70-99) 209 mg/dL (70-99) O2 Saturation 93 % (92-99) Arterial Blood pH 7.33 (7.35-7.45) Arterial Blood pCO2 at Patient Temp 60 mmHg (35-46) Arterial Blood pO2 at Patient Temp 73 mmHg (65-108) Arterial Blood HCO3 31 mmol/L (21-28) Arterial Blood Base Excess 4 mmol/L (-3-3) FiO2 28 Laboratory Tests Test 02/06/17 16:35 02/06/17 20:45 02/07/17 00:30 02/07/17 03:30 Glucose (Fingerstick) 198 mg/dL (70-99) 229 mg/dL (70-99) Vancomycin Level Trough 14.6 mcg/mL (10.0-20.0) Vancomycin Last Dose Date 02/06/17 Vancomycin Last Dose Time 0700 White Blood Count 6.8 x10^3/uL (4.0-11.0) Red Blood Count 2.63 x10^6/uL (3.50-5.40) Hemoglobin 7.7 g/dL (12.0-15.5) Hematocrit 23.6 % (36.0-47.0) Mean Corpuscular Volume 90 fL (79-100) Mean Corpuscular Hemoglobin 29 pg (25-35) Mean Corpuscular Hemoglobin Concent 33 g/dL (31-37) Red Cell Distribution Width 16.9 % (11.5-14.5) Platelet Count 372 x10^3/uL (140-400) Neutrophils (%) (Auto) 88 % (31-73) Lymphocytes (%) (Auto) 6 % (24-48) Monocytes (%) (Auto) 6 % (0-9) Eosinophils (%) (Auto) 0 % (0-3) Basophils (%) (Auto) 0 % (0-3) Neutrophils # (Auto) 6.0 x10^3uL (1.8-7.7) Lymphocytes # (Auto) 0.4 x10^3/uL (1.0-4.8) Monocytes # (Auto) 0.4 x10^3/uL (0.0-1.1) Eosinophils # (Auto) 0.0 x10^3/uL (0.0-0.7) Basophils # (Auto) 0.0 x10^3/uL (0.0-0.2) Test 02/07/17 08:51 02/07/17 12:01 02/07/17 12:10 Glucose (Fingerstick) 185 mg/dL (70-99) 209 mg/dL (70-99) O2 Saturation 93 % (92-99) Arterial Blood pH 7.33 (7.35-7.45) Arterial Blood pCO2 at Patient Temp 60 mmHg (35-46) Arterial Blood pO2 at Patient Temp 73 mmHg (65-108) Arterial Blood HCO3 31 mmol/L (21-28) Arterial Blood Base Excess 4 mmol/L (-3-3) FiO2 28 Microbiology 02/05/17 Blood Culture - Preliminary, Resulted NO GROWTH AFTER 2 DAYS 02/05/17 Urine Culture - Preliminary, Resulted 02/05/17 Urine Culture Result 1 (BISI) - Preliminary, Resulted Medications Current Medications Sodium Chloride 1,000 ml @ 620 mls/hr Q1H37M IV Last administered on 10:43; Start 02/05/17 at 09:05; Stop 02/05/17 at 12:05; Status DC Albuterol/ Ipratropium (Duoneb) 6 ml 1X ONCE NEB Last administered on 09:18; Start 02/05/17 at 09:15; Stop 02/05/17 at 09:16; Status DC Meropenem 1 gm/ Sodium Chloride 100 ml @ 200 mls/hr Q8HRS IV ; Start 02/05/17 at 14:00; Status UNV Vancomycin HCl (Vanco Per Pharmacy) 1 each PRN DAILY PRN MC SEE COMMENTS Last administered on 02/07/17 01:51; Start 02/05/17 at 11:30 Levofloxacin/ Dextrose (Levaquin Per Pharmacy) 1 each PRN DAILY PRN MC SEE COMMENTS; Start 02/05/17 at 11:30 Vancomycin HCl 2 gm/Dextrose 500 ml @ 250 mls/hr 1X ONCE IV Last administered on 02/05/17 13:20; Start 02/05/17 at 12:00; Stop 02/05/17 at 13 :59; Status DC Meropenem (Merrem) 1 gm 1X ONCE IVP Last administered on 02/05/17 11:37; Start 02/05/17 at 12:00; Stop 02/05/17 at 19:17; Status DC Levofloxacin/ Dextrose 150 ml @ 100 mls/hr 1X ONCE IV Last administered on 11:38; Start 02/05/17 at 12:00; Stop 02/05/17 at 13:29; Status DC Methylprednisolone Sodium Succinate (SOLU-Medrol 125MG VIAL) 125 mg 1X ONCE IV Last administered on 02/05/17 12:06; Start 02/05/17 at 11:45; Stop at 11:59; Status DC Ondansetron HCl (Zofran) 4 mg PRN Q8HRS PRN IV NAUSEA/VOMITING; Start at 12:00; Stop 02/06/17 at 11:59; Status DC Sodium Chloride 1,000 ml @ 75 mls/hr [id number] IV Last administered on 16:24; Start 02/05/17 at 11:46; Stop 02/06/17 at 11:19; Status DC Acetaminophen (Tylenol) 650 mg PRN Q4HRS PRN PO FEVER Last administered on 03:34; Start 02/05/17 at 12:00; Stop 02/06/17 at 11:59; Status DC Albuterol/ Ipratropium (Duoneb) 3 ml RTQID NEB Last administered on 02/06/17 09:33; Start 02/05/17 at 12:00; Stop 02/06/17 at 11:59; Status DC Dobutamine HCl 2000 mg/Dextrose 250 ml @ 4.59 mls/hr CONT IV ; Start 02/05/17 at 12:00; Stop 02/05/17 at 13:17; Status DC Dobutamine HCl/ Dextrose 250 ml @ 18.375 mls/ hr CONT PRN IV SEE I/O RECORD; Start 02/05/17 at 13:15 Meropenem (Merrem) 1 gm Q8HRS IVP Last administered on 02/05/17 21:03; Start 02/05/17 at 21:00; Stop 02/05/17 at 21:53; Status DC Levofloxacin/ Dextrose 150 ml @ 100 mls/hr Q24H IV Last administered on 12:06; Start 02/06/17 at 12:00 Vancomycin HCl 1.75 gm/Dextrose/ Sodium Chloride 500 ml @ 250 mls/hr Q18H IV Last administered on 02/07/17 01:28; Start 02/06/17 at 07:00 Vancomycin HCl 1 each 1X ONCE MC Last administered on 02/07/17 00:30; Start 02/07/17 at 00:30; Stop 02/07/17 at 00:31; Status DC Methylprednisolone Sodium Succinate (SOLU-Medrol 40MG VIAL) 40 mg Q8HRS IV Last administered on 02/07/17 14:15; Start 02/05/17 at 16:00 Enoxaparin Sodium (Lovenox 40mg Syringe) 40 mg Q24H SQ Last administered on 16:24; Start 02/05/17 at 16:00; Stop 02/05/17 at 21:19; Status DC Aspirin (Children'S Aspirin) 81 mg DAILY PO Last administered on 02/07/17 08: 48; Start 02/06/17 at 09:00 Diltiazem HCl (Cardizem 24hr Cd) 120 mg QHS PO Last administered on 02/06/17 20:43; Start 02/05/17 at 21:00 Ferrous Sulfate (Feosol) 325 mg BID PO Last administered on 02/06/17 20:42; Start 02/05/17 at 21:00 Acetaminophen/ Hydrocodone Bitart (Lortab 7.5/325) 2 tab PRN Q6HRS PRN PO PAIN Last administered on 02/07/17 06:41; Start 02/05/17 at 17:15 Levothyroxine Sodium (Synthroid) 137 mcg DAILYAC PO Last administered on 08:48; Start 02/06/17 at 07:30 Warfarin Sodium (Coumadin) 5 mg DAILY16 PO Last administered on 02/06/17 16: 33; Start 02/05/17 at 22:00 Citalopram Hydrobromide (CeleXA) 40 mg DAILY PO Last administered on 08:48; Start 02/06/17 at 09:00 Glimepiride (Amaryl) 4 mg BIDWMEALS PO Last administered on 02/07/17 08:48; Start 02/05/17 at 17:30 Losartan Potassium (Cozaar) 25 mg DAILY PO ; Start 02/06/17 at 09:00; Stop at 11:22; Status DC Atorvastatin Calcium (Lipitor) 80 mg QHS PO Last administered on 02/06/17 20: 43; Start 02/05/17 at 21:00 Insulin Aspart (NovoLOG) 0-12 UNITS QIDACHS SQ Last administered on 02/07/17 12:06; Start 02/05/17 at 18:00 Norepinephrine Bitartrate 250 ml @ 0 mls/hr CONT PRN IV SEE I/O RECORD; Start 02/05/17 at 19:00 Albuterol/ Ipratropium (Duoneb) 3 ml STK-MED ONCE .ROUTE ; Start 02/05/17 at 19 :16; Stop 02/05/17 at 19:17; Status DC Meropenem (Merrem) 1 gm Q8HRS IVP Last administered on 02/07/17 14:15; Start 02/06/17 at 06:00 Warfarin Sodium (Coumadin Per Physician) 1 each PRN DAILY PRN MC SEE COMMENTS; Start 02/06/17 at 07:45 Lactobacillus Rhamnosus (Culturelle) 1 cap BID PO Last administered on 08:48; Start 02/06/17 at 09:00 Albuterol/ Ipratropium (Duoneb) 3 ml RTQID NEB Last administered on 02/07/17 12:08; Start 02/06/17 at 16:00 Alprazolam (Xanax) 0.5 mg PRN TID PRN PO ANXIETY / AGITATION Last administered on 02/07/17 10:21; Start 02/06/17 at 17:30 Metformin HCl (Glucophage) 500 mg BIDWMEALS PO Last administered on 02/07/17 12:05; Start 02/07/17 at 12:00 Active Scripts Active Reported Ferrous Sulfate 325 Mg Tablet 1 Tab PO BID LAST DOSE GIVEN: DATE:01/08/17 TIME:9:00 a.m. Warfarin Sodium 5 Mg Tablet 1 Tab PO DAILY 30 Days LAST DOSE GIVEN: DATE:01/08/17 TIME:2:00 p.m Levothyroxine Sodium 137 Mcg Tablet 137 Mcg PO DAILYAC LAST DOSE GIVEN: DATE:01/08/17 TIME:7:30 a.m. Furosemide 40 Mg Tablet 40 Mg PO DAILY LAST DOSE GIVEN: DATE:01/07/17 TIME:9:00 a.m. Aspirin 81 Mg Tab.chew 1 Tab PO DAILY LAST DOSE GIVEN: DATE:01/08/17 TIME:9:00 a.m. Hydrocodone-Apap 7.5-325 (Hydrocodone Bit/Acetaminophen) 1 Each Tablet 1-2 Tab PO PRN Q6HRS PRN Took at 12:30 today may take anytime as needed for pain every 4 hours Amaryl (Glimepiride) 4 Mg Tablet 1 Tab PO BID LAST DOSE GIVEN: DATE:01/08/17 TIME:9:00 a.m. Potassium Chloride 20 Meq Tab.er.prt 1 Tab PO WEEKLY Meds not given this hospital admission. May resume home medications as approved by Physician. TIME: 8:30 a.m. NEXT DOSE DUE: DATE: 12-28-15 TIME: 8:30 a.m. Metolazone 5 Mg Tablet 5 Mg PO WEEKLY Meds not given this hospital admission. May resume home medications as approved by Physician. TIME: 8:30 a.m. NEXT DOSE DUE: DATE: 12-28-15 TIME: 8:30 a.m. Lexapro (Escitalopram Oxalate) 10 Mg Tablet 20 Mg PO DAILY LAST DOSE GIVEN: DATE:01/08/17 TIME:9:00 a.m. NEXT DOSE DUE: DATE: 12-28-15 TIME: 8:30 a.m. Cardizem Cd (Diltiazem Hcl) 240 Mg Cap.er.24h 120 Mg PO HS LAST DOSE GIVEN: DATE:01/07/17 TIME:9:00 p.m. NEXT DOSE DUE: DATE: 12-27-15 TIME: 9:00 p.m. Losartan Potassium 100 Mg Tablet 25 Mg PO DAILY LAST DOSE GIVEN: DATE:01/07/17 TIME:9:00 a.m. Crestor (Rosuvastatin Calcium) 40 Mg Tablet 40 Mg PO QHS LAST DOSE GIVEN: DATE:01/07/17 TIME:9:00 p.m. NEXT DOSE DUE: DATE: 12-27-15 TIME: 9:00 p.m. Vitals/I & O Vital Sign - Last 24 Hours 02/06/17 02/06/17 02/06/17 02/06/17 16:00 16:00 16:00 16:49 Temp 97.4 97.4 Pulse 130 Resp 32 B/P (MAP) 107/76 (86) Pulse Ox 97 99 O2 Delivery Nasal Cannula Nasal Cannula BiPAP/CPAP O2 Flow Rate 2.0 3.0 2.0 02/06/17 02/06/17 02/06/17 02/06/17 17:00 18:00 18:32 19:00 Pulse 104 119 92 Resp 21 27 19 B/P (MAP) 98/74 (82) 83/54 (64) 106/61 (76) Pulse Ox 98 93 97 97 O2 Delivery Nasal Cannula Nasal Cannula Nasal Cannula BiPAP/CPAP O2 Flow Rate 2.0 2.0 02/06/17 02/06/17 02/06/17 02/06/17 19:40 20:00 20:00 20:00 Temp 97.8 97.8 Pulse 90 Resp 20 B/P (MAP) 88/72 (77) Pulse Ox 99 98 O2 Delivery BiPAP/CPAP Nasal Cannula BiPAP/CPAP O2 Flow Rate 3.0 4.0 02/06/17 02/06/17 02/06/17 02/06/17 20:43 21:00 22:00 23:00 Temp 97.8 97.8 Pulse 105 124 119 118 Resp 18 B/P (MAP) 100/70 100/70 (80) 102/66 (78) 115/68 (84) Pulse Ox 96 97 97 O2 Delivery Nasal Cannula Nasal Cannula BiPAP/CPAP O2 Flow Rate 3.0 3.0 02/07/17 02/07/17 02/07/17 02/07/17 00:00 00:59 01:00 01:06 Pulse 81 92 Resp 19 17 B/P (MAP) 102/65 (77) 99/65 (76) Pulse Ox 97 98 99 O2 Delivery BiPAP/CPAP Bi-pap BiPAP/CPAP BiPAP/CPAP 12/17/02/07/17 02/07/17 02/07/17 02:00 03:00 03:08 04:00 Temp 97.6 97.6 Pulse 86 109 112 Resp 18 15 21 B/P (MAP) 101/60 (74) 111/76 (88) 121/78 (92) Pulse Ox 98 100 97 96 O2 Delivery BiPAP/CPAP BiPAP/CPAP BiPAP/CPAP Nasal Cannula O2 Flow Rate 3.0 02/07/17 02/07/17 02/07/17 02/07/17 04:00 04:00 05:00 06:00 Pulse 120 93 Resp 21 26 B/P (MAP) 108/59 (75) 93/60 (71) Pulse Ox 96 96 O2 Delivery Bi-pap Nasal Cannula Nasal Cannula O2 Flow Rate 3.0 3.0 3.0 02/07/17 02/07/17 02/07/17 02/07/17 06:41 07:00 07:45 08:00 Pulse 120 Resp 18 21 28 B/P (MAP) 93/60 (71) Pulse Ox 96 96 92 98 O2 Delivery BiPAP/CPAP BiPAP/CPAP BiPAP/CPAP O2 Flow Rate 3.0 02/07/17 02/07/17 02/07/17 02/07/17 08:00 08:00 08:00 09:00 Temp 98.1 98.1 Pulse 104 130 Resp 21 37 B/P (MAP) 87/55 (66) 86/59 (68) Pulse Ox 97 99 O2 Delivery BiPAP/CPAP Bi-pap Nasal Cannula O2 Flow Rate 3.0 2.0 02/07/17 02/07/17 02/07/17 02/07/17 10:00 11:00 12:00 12:00 Pulse 112 144 126 Resp 20 21 24 B/P (MAP) 106/66 (79) 110/72 (85) Pulse Ox 98 93 98 O2 Delivery Nasal Cannula Nasal Cannula Nasal Cannula Nasal Cannula O2 Flow Rate 2.0 2.0 2.0 2.0 02/07/17 02/07/17 02/07/17 12:00 12:09 13:00 Pulse 117 Resp 27 B/P (MAP) 119/67 (84) Pulse Ox 94 91 O2 Delivery Nasal Cannula Nasal Cannula O2 Flow Rate 2.0 2.0 2.0 Intake and Output 02/06/17 02/06/17 02/07/17 15:00 23:00 07:00 Intake Total 200 ml 150 ml 630 ml Balance 200 ml 150 ml 630 ml CRYSTAL ARCHULETA MD Feb 07, 2017 15:49
[2017-02-07] MEDS: WARFARIN 5 MG TABLET. PO SCH (17:28)
[2017-02-07] MEDS ORDERED: POLYETHYLENE GLYCOL 3350 17 GM PACKET. PO PRN (20:00)
[2017-02-07] MEDS: ATORVASTATIN CALCIUM 40 MG TABLET. PO SCH (21:29)
[2017-02-08] VITALS (38 sets, daily range): BP systolic 82–123; BP diastolic 39–93
[2017-02-08] MEDS: ALPRAZolam 0.5 MG TABLET PO PRN ×2 (03:46→15:22)
[2017-02-08] MEDS: methylPREDNISolone SOD SUCC PF 40 MG/ML VIAL. IV SCH ×3 (05:33→21:59)
[2017-02-08] MEDS: MEROPENEM IV Push 1 GM VIAL. IVP SCH (05:33)
[2017-02-08] MEDS ORDERED: ALTEPLASE 2 MG VIAL INT CAT ONE (08:00)
[2017-02-08] MEDS: IPRATRPIUM/ALBUTEROL 0.5/2.5MG 3 ML NEBU. NEB SCH ×4 (08:30→19:30)
[2017-02-08] MEDS: metFORMIN 500 MG TABLET PO SCH ×2 (08:40→16:51)
[2017-02-08] MEDS: GLIMEPIRIDE 2 MG TABLET. PO SCH ×2 (08:40→16:51)
[2017-02-08] MEDS: LEVOTHYROXINE 137 MCG TABLET PO SCH (08:40)
[2017-02-08] MEDS: FERROUS SULFATE 325 MG TABLET. PO SCH ×2 (08:41→21:00)
[2017-02-08] MEDS: CITALOPRAM 20 MG TABLET. PO SCH (08:41)
[2017-02-08] MEDS: ASPIRIN CHEWABLE 81 MG TABLET. PO SCH (08:41)
[2017-02-08] MEDS: LACTOBACILLUS RHAMNOSUS GG 1 CAPSULE. PO SCH ×2 (08:41→21:00)
[2017-02-08] MEDS: INSULIN ASPART 300 UNITS/3 ML INSULN.PEN SQ SCH ×4 (08:42→21:10)
[2017-02-08] MEDS: HYDROcodone/APAP 7.5/325MG 1 TAB TABLET PO PRN (08:50)
--- NOTE | 2017-02-08 08:59 | PDOC ---
Infectious Disease Note Subjective Subjective Pt is eating breakfast in chair says feel better Lt knee pain is improving Dry cough ROS ROS GEN: Denies fevers, chills, sweats HEENT: Denies blurred vision, sore throat CV: Denies chest pain RESP: Denies shortness of air, cough GI: Denies n/v/d NEURO: Denies confusion, dizziness MSK: Denies weakness, joint pain/swelling Vital Sign Vital Signs Vital Signs Date Time Temp Pulse Resp B/P (MAP) Pulse Ox O2 Delivery O2 Flow Rate FiO2 02/08/17 08:50 Nasal Cannula 2.0 02/08/17 06:00 126 21 92/55 (67) 99 02/08/17 04:00 98.5 98.5 Physical Exam PHYSICAL EXAM GEN: NAD, AOx3 HEENT: MMM, EOMI, no scleral icterus/injection Cardiac: irregular, tachycardic, no M/R/G Lungs: regular breathing rate and effort, becomes slightly dyspneic while talking, faint end expiratory wheezes and rhonchi Abd: soft, non distended, NTTP Ext: 2+ pitting edema LE bilaterally, chronic venous stasis changes RLE, erythema in left knee and LLE has completely resolved Neuro: CN2-12 GI Labs Lab Laboratory Tests Test 02/07/17 12:01 02/07/17 12:10 02/07/17 17:26 02/07/17 21:31 Glucose (Fingerstick) 209 mg/dL (70-99) 221 mg/dL (70-99) 284 mg/dL (70-99) O2 Saturation 93 % (92-99) Arterial Blood pH 7.33 (7.35-7.45) Arterial Blood pCO2 at Patient Temp 60 mmHg (35-46) Arterial Blood pO2 at Patient Temp 73 mmHg (65-108) Arterial Blood HCO3 31 mmol/L (21-28) Arterial Blood Base Excess 4 mmol/L (-3-3) FiO2 28 Micro reviewed BC coag neg staph, contaminant 1/6 bottles Objective Assessment ASSESSMENT/PLAN Assessment/Plan Pt is a 76yo CF admitted for sepsis and respiratory failure 1)Acute on chronic respiratory failure- likely multifactorial. improving 2)Sepsis- likely multifactorial. improving 3)PNA- see above 4)Blood culture + gram positive cocci 1/4 bottles, possible contaminant- see above 5)COPD- pt continued on breathing treatments. Pt is receiving IV steroids 6)Acute on chronic diastolic congestive heart failure- Cardiology following. 7)Pulmonary HTN 8)Atrial fibrillation- pt is currently tachycardic, but pt's blood pressure is on the lower side. Cardiology following; currently receiving Warfarin and Diltiazem 9)Obstructive sleep apnea. 10)Aortic stenosis. 11)Hypertension- BP meds currently held, slighty hyoptensive 12)Type 2 diabetes- HbA1C this admission is 6.6 but blood sugars currently uncontrolled. Receiving Glimepiride 4mg BID and SSI (has received 12 units over last 24 hours). CTM. Will start Metformin 13)Hypothyroidism- well controlled with normal TSH this admission. Pt receiving Levothyroxine 137mcg 14)Generalized anxiety disorder- pt continued on Citalopram 40mg and started on Xanax 0.5mg TID 15)Severe protein-calorie malnutrition 16)HLD- pt continued on Atorvastatin 80mg 17)Anemia- labs pending HB 7.7 Plan Plan of Care continue terry and alexis HERNANDEZ merrem PICC line issues will taper soon monitor lt knee closely continue supportive care BRITTANIE HERNANDEZ MD Feb 08, 2017 08:59
[2017-02-08] MEDS: VANCOMYCIN PER PHARMACY MC PRN (09:21)
--- NOTE | 2017-02-08 09:49 | PDOC ---
PULMONARY PROGRESS NOTES Subjective could not tolerate off BIPAP/ had increasing Resp. acidosis now better, on canula Vitals Vital Signs Date Time Temp Pulse Resp B/P (MAP) Pulse Ox O2 Delivery O2 Flow Rate FiO2 02/08/17 09:00 135 26 91/67 (75) 98 Nasal Cannula 2.0 02/08/17 08:00 98.0 98.0 ROS: No Nausea, No Chest Pain, No Abdominal Pain, No Increase Cough General: Alert, No acute distress Lungs: Clear Cardiovascular: S1, S2 Abdomen: Soft, Other (obese) Neuro Exam: Alert Extremities: Other (2+edema) Labs Laboratory Tests Test 02/06/17 12:02 02/06/17 16:35 02/06/17 20:45 02/07/17 00:30 Glucose (Fingerstick) 246 mg/dL (70-99) 198 mg/dL (70-99) 229 mg/dL (70-99) Vancomycin Level Trough 14.6 mcg/mL (10.0-20.0) Vancomycin Last Dose Date 02/06/17 Vancomycin Last Dose Time 0700 Test 02/07/17 01:30 02/07/17 03:30 02/07/17 08:51 02/07/17 12:01 Nasal Screen MRSA (PCR) Negative (Negative) White Blood Count 6.8 x10^3/uL (4.0-11.0) Red Blood Count 2.63 x10^6/uL (3.50-5.40) Hemoglobin 7.7 g/dL (12.0-15.5) Hematocrit 23.6 % (36.0-47.0) Mean Corpuscular Volume 90 fL (79-100) Mean Corpuscular Hemoglobin 29 pg (25-35) Mean Corpuscular Hemoglobin Concent 33 g/dL (31-37) Red Cell Distribution Width 16.9 % (11.5-14.5) Platelet Count 372 x10^3/uL (140-400) Neutrophils (%) (Auto) 88 % (31-73) Lymphocytes (%) (Auto) 6 % (24-48) Monocytes (%) (Auto) 6 % (0-9) Eosinophils (%) (Auto) 0 % (0-3) Basophils (%) (Auto) 0 % (0-3) Neutrophils # (Auto) 6.0 x10^3uL (1.8-7.7) Lymphocytes # (Auto) 0.4 x10^3/uL (1.0-4.8) Monocytes # (Auto) 0.4 x10^3/uL (0.0-1.1) Eosinophils # (Auto) 0.0 x10^3/uL (0.0-0.7) Basophils # (Auto) 0.0 x10^3/uL (0.0-0.2) Glucose (Fingerstick) 185 mg/dL (70-99) 209 mg/dL (70-99) Test 02/07/17 12:10 02/07/17 17:26 02/07/17 21:31 02/08/17 08:38 O2 Saturation 93 % (92-99) Arterial Blood pH 7.33 (7.35-7.45) Arterial Blood pCO2 at Patient Temp 60 mmHg (35-46) Arterial Blood pO2 at Patient Temp 73 mmHg (65-108) Arterial Blood HCO3 31 mmol/L (21-28) Arterial Blood Base Excess 4 mmol/L (-3-3) FiO2 28 Glucose (Fingerstick) 221 mg/dL (70-99) 284 mg/dL (70-99) 305 mg/dL (70-99) Laboratory Tests Test 02/07/17 12:01 02/07/17 12:10 02/07/17 17:26 02/07/17 21:31 Glucose (Fingerstick) 209 mg/dL (70-99) 221 mg/dL (70-99) 284 mg/dL (70-99) O2 Saturation 93 % (92-99) Arterial Blood pH 7.33 (7.35-7.45) Arterial Blood pCO2 at Patient Temp 60 mmHg (35-46) Arterial Blood pO2 at Patient Temp 73 mmHg (65-108) Arterial Blood HCO3 31 mmol/L (21-28) Arterial Blood Base Excess 4 mmol/L (-3-3) FiO2 28 Test 02/08/17 08:38 Glucose (Fingerstick) 305 mg/dL (70-99) Medications Active Scripts Medications Dose Route/Sig Max Daily Dose Days Date Category Dose Instructions Ferrous Sulfate 325 Mg Tablet 1 Tab PO BID 01/08/17 Reported LAST DOSE GIVEN: DATE:01/08/17 TIME:9:00 a.m. Warfarin Sodium 5 Mg Tablet 1 Tab PO DAILY 30 01/08/17 Reported LAST DOSE GIVEN: DATE:01/08/17 TIME:2:00 p.m Levothyroxine Sodium 137 Mcg Tablet 137 Mcg PO DAILYAC 01/04/17 Reported LAST DOSE GIVEN: DATE:01/08/17 TIME:7:30 a.m. Furosemide 40 Mg Tablet 40 Mg PO DAILY 01/04/17 Reported LAST DOSE GIVEN: DATE:01/07/17 TIME:9:00 a.m. Aspirin 81 Mg Tab.chew 1 Tab PO DAILY 11/16/16 Reported LAST DOSE GIVEN: DATE:01/08/17 TIME:9:00 a.m. Hydrocodone-Apap 7.5-325 (Hydrocodone Bit/Acetaminophen) 1 Each Tablet 1-2 Tab PO PRN Q6HRS PRN 12/26/15 Reported Took at 12:30 today may take anytime as needed for pain every 4 hours Amaryl (Glimepiride) 4 Mg Tablet 1 Tab PO BID 12/16/15 Reported LAST DOSE GIVEN: DATE:01/08/17 TIME:9:00 a.m. Potassium Chloride 20 Meq Tab.er.prt 1 Tab PO WEEKLY 04/17/15 Reported Meds not given this hospital admission. May resume home medications as approved by Physician. TIME: 8:30 a.m. NEXT DOSE DUE: DATE: 12-28-15 TIME: 8:30 a.m. Metolazone 5 Mg Tablet 5 Mg PO WEEKLY 04/16/15 Reported Meds not given this hospital admission. May resume home medications as approved by Physician. TIME: 8:30 a.m. NEXT DOSE DUE: DATE: 12-28-15 TIME: 8:30 a.m. Lexapro (Escitalopram Oxalate) 10 Mg Tablet 20 Mg PO DAILY 05/01/13 Reported LAST DOSE GIVEN: DATE:01/08/17 TIME:9:00 a.m. NEXT DOSE DUE: DATE: 12-28-15 TIME: 8:30 a.m. Cardizem Cd (Diltiazem Hcl) 240 Mg Cap.er.24h 120 Mg PO HS 05/01/13 Reported LAST DOSE GIVEN: DATE:01/07/17 TIME:9:00 p.m. NEXT DOSE DUE: DATE: 12-27-15 TIME: 9:00 p.m. Losartan Potassium 100 Mg Tablet 25 Mg PO DAILY 05/01/13 Reported LAST DOSE GIVEN: DATE:01/07/17 TIME:9:00 a.m. Crestor (Rosuvastatin Calcium) 40 Mg Tablet 40 Mg PO QHS 05/01/13 Reported LAST DOSE GIVEN: DATE:01/07/17 TIME:9:00 p.m. NEXT DOSE DUE: DATE: 12-27-15 TIME: 9:00 p.m. Impression . 1. Acute on chronic hypercapnic respiratory failure secondary to multifactorial etiologies including combination of sepsis, healthcare-associated pneumonia, worsening hypercapnia related to narcotic use as well and chronic obstructive pulmonary disease exacerbation, underlying JAYLIN/OHS. 2. Sepsis syndrome with fever and altered mental status. 3. Clinically, less likely congestive heart failure. 4. History of underlying chronic obstructive pulmonary disease with cor pulmonale and suspected obesity hypoventilation syndrome. 5. Moderate to severe protein-calorie malnutrition. 6. Abnormal chest x-ray with a right lower lobe infiltrate and possible retrocardiac infiltrate as well. The interstitial markings are slightly prominent, but they were present in October as well, and clinically, I do not think of congestive heart failure, more likely pneumonia. 7. Acute on chronic anemia Plan . 1. Continue with present canula, prn BiPAP. 2. Follow ABGs while off BIPAP/ has been having increase Resp. acidosis while on oxygen only 3. Broad spectrum antibiotics to cover for gram-negative and gram-positive pneumonia. 4. sepsis protocol./ s/p IVF 5. Vasopressor if needed. 6. Last EF normal. 7. Broad spectrum antibiotic. 8. Follow all cultures. 9. Hold off any diuretics at present. 10. Improve nutritional status. 11. Transfusion per PCP 12. Discussed with RN and RT ALYSSA SLADE MD Feb 08, 2017 09:49
[2017-02-08 11:02] LABS: RED BLOOD COUNT 2.03 x10^6/uL (3.50-5.40); RED CELL DISTRIBUTION WIDTH 17.1 % (11.5-14.5); WHITE BLOOD COUNT 14.4 x10^3/uL (4.0-11.0)
[2017-02-08 11:12] LABS: HEMATOCRIT 18.2 % (36.0-47.0); HEMOGLOBIN 5.7 g/dL (12.0-15.5)
[2017-02-08 11:25] LABS: CALCIUM 8.7 mg/dL (8.5-10.1); GFR 53.6
[2017-02-08 11:34] LABS: POTASSIUM 5.7 mmol/L (3.5-5.1)
[2017-02-08 12:18] LABS: HCO3 ABG 26 mmol/L (21-28); PCO2 ABG 46 mmHg (35-46); PH ABG 7.36 (7.35-7.45); PO2 ABG 101 mmHg (65-108); SAT O2 ABG 97 % (92-99)
[2017-02-08 12:19] LABS: FIO2 ABG 28
[2017-02-08] MEDS: VANCOMYCIN 1.75 GM in IV DEXTROSE 5 %-0.45 % NACL 500 ML IV SCH ×2 (13:00→22:49)
--- NOTE | 2017-02-08 13:01 | PDOC2 ---
GI CONSULT Reason For Consult: GI Bleed HPI: HPI: 76 y/o female w/ recent left knee revision and A Fib on Coumadin and ASA admitted 02/05/17 w/ resp failure and sepsis. On Levo and vanco. Was on BiPAP overnight, now nasal cannula. GI asked to see today w/ staff concern for melena. Tells me has been on iron, previously having black formed stools, apparently changed to runny consistency overnight. No n/v, abd pain, hematochezia. Ate a little this morning, feels really thirsty now. Hgb was 5.7 today (was 9.6 on admit, drifted to 7s after), earlier this month in 6s, seems 10-11 prior to that. Today also w/ K+ 5.7, BUN 64 (from 15 when last checked) w/ normal Cr, WBC 14.4 (on IV Solu-Medrol). INR was 1.9 on admit. Has been tachycardic w/ some hypotension. Plans for transfusion (blood , FFP). Did require transfusions prior to admission at . Previous GI eval: colonoscopy 2008 w/ polyps, diverticulosis, hemorrhoids. EGD 04/2016 w/ Schatzki's ring. S/p cholecystectomy. Denies NSAIDs. Says takes ranitidine PRN, no acid-rubber cutter here. PMH: PMH: CHF, HTN, A Fib, CAD, DM, HLD, COPD, aortic stenosis, JAYLIN, obesity, hypothyroidism, anxiety/depression, RA, cholecystectomy, lumbar laminectomy, CTR , hysterectomy, CABG, multiple knee surgeries FH: Family History: No pertinent hx Social History: ALCOHOL: none Drugs: None ROS: GEN: Denies fevers, chills, sweats HEENT: Denies blurred vision, sore throat CV: Denies chest pain RESP: Denies shortness of air, cough GI: Per HPI : Denies hematuria, dysuria ENDO: Denies weight changes NEURO: Denies confusion, dizziness MSK: Denies weakness, joint pain/swelling SKIN: Denies jaundice, pruritus Vitals: Vitals: Vital Signs Date Time Temp Pulse Resp B/P (MAP) Pulse Ox O2 Delivery O2 Flow Rate FiO2 02/08/17 12:01 98 Nasal Cannula 2.0 02/08/17 09:00 135 26 91/67 (75) 02/08/17 08:00 98.0 98.0 Labs: Labs: Laboratory Tests Test 02/07/17 17:26 02/07/17 21:31 02/08/17 08:38 02/08/17 10:45 Glucose (Fingerstick) 221 mg/dL (70-99) 284 mg/dL (70-99) 305 mg/dL (70-99) White Blood Count 14.4 x10^3/uL (4.0-11.0) Red Blood Count 2.03 x10^6/uL (3.50-5.40) Hemoglobin 5.7 g/dL (12.0-15.5) Hematocrit 18.2 % (36.0-47.0) Mean Corpuscular Volume 90 fL (79-100) Mean Corpuscular Hemoglobin 28 pg (25-35) Mean Corpuscular Hemoglobin Concent 31 g/dL (31-37) Red Cell Distribution Width 17.1 % (11.5-14.5) Platelet Count 483 x10^3/uL (140-400) Sodium Level 139 mmol/L (136-145) Potassium Level 5.7 mmol/L (3.5-5.1) Chloride Level 102 mmol/L (98-107) Carbon Dioxide Level 29 mmol/L (21-32) Anion Gap 8 (6-14) Blood Urea Nitrogen 64 mg/dL (7-20) Creatinine 1.0 mg/dL (0.6-1.0) Estimated GFR (Cockcroft-Gault) 53.6 Glucose Level 314 mg/dL (70-99) Calcium Level 8.7 mg/dL (8.5-10.1) Test 02/08/17 12:00 02/08/17 12:18 O2 Saturation 97 % (92-99) Arterial Blood pH 7.36 (7.35-7.45) Arterial Blood pCO2 at Patient Temp 46 mmHg (35-46) Arterial Blood pO2 at Patient Temp 101 mmHg (65-108) Arterial Blood HCO3 26 mmol/L (21-28) Arterial Blood Base Excess 0 mmol/L (-3-3) FiO2 28 Glucose (Fingerstick) 306 mg/dL (70-99) Allergies: Coded Allergies: SEAN Inhibitors (Verified Allergy, Intermediate, 02/02/17) Iodinated Contrast- Oral and IV Dye (Verified Allergy, Intermediate, 02/02) Penicillins (Verified Allergy, Intermediate, 02/02/17) sulfamethoxazole (Verified Allergy, Intermediate, 02/02/17) trimethoprim (Verified Allergy, Intermediate, 02/02/17) Medications: Current Medications Medications (Trade) Dose Ordered Sig/Dean Route PRN Reason Start Time Stop Time Status Last Admin Dose Admin Polyethylene Glycol (miraLAX PACKET) 17 gm PRN DAILY PRN PO CONSTIPATION 02/07/17 20:00 02/07/17 21:29 Alteplase, Recombinant (Cathflo) 2 mg 1X ONCE INT CAT 02/08/17 08:00 02/08/17 08:01 DC 02/08/17 07:32 Imaging: Imaging: CXR 02/07/17 Impression: 1. Placement of right-sided PICC with distal tip at the superior cavoatrial junction level. 2. Findings suggestive of CHF with cardiomegaly and pulmonary venous congestion. PE: GEN: NAD, pale HEENT: Atraumatic, PERRL LUNGS: clear, nasal cannula, tachypneic HEART: irregular irregular, tachy ABD: NABS, S/ND/NT EXTREMITY: No edema SKIN: bilateral knee w/ healed incisions NEURO/PSYCH: A & O 3 A/P: A/P: Melena -recently having formed black stools on iron, changed to runny black stools overnight -had EGD in 04/2016 w/ Schatzki's ring Anemia -Hgb from 7.7 to 5.7, BUN 64 Sepsis, resp failure -on atbx, steroids, on and off BiPAP A Fib/tachycardia, recent left knee surgery, on Coumadin Hyperkalemia CRC screen -colonoscopy 2008 w/ polyps, diverticulosis, hemorrhoids -- NPO, start IV PPI. Agree w/ transfusions. Reviewed w/ Propeck - check bleeding scan. Poor endoscopy candidate. Dr. Mark to follow. ARBEN PEREZ Feb 08, 2017 13:01
--- NOTE | 2017-02-08 16:19 | PDOC ---
PROGRESS NOTES Subjective Subjective Patient having evidence of lower GI bleed today. Last INR was several days ago at 1.9. Hemoglobin down to 5.7. Type and cross for 2 units ordered as well as fresh frozen plasma. GI consultation and patient started on PPI as well as bleeding scan ordered. Patient awake and alert and complains of sore throat as well as left knee pain from recent total knee revision. Objective Objective Vital Signs Date Time Temp Pulse Resp B/P (MAP) Pulse Ox O2 Delivery O2 Flow Rate FiO2 02/08/17 15:00 134 16 115/81 (92) 97 Nasal Cannula 2.0 02/08/17 14:28 98.0 98.0 Intake and Output 02/08/17 07:00 Intake Total 1397 ml Output Total 5 ml Balance 1392 ml Intake Oral 590 ml IV Total 807 ml Output Urine Total 3 ml Stool Total 2 ml # Voids 1 Physical Exam Abdomen: Normal bowel sounds Heart: Other Extremities: Other (2+ edema, improved redness about left knee scar) General: Alert (irregularly irregular) Lungs: Other (coarse breath sounds bilaterally) Assessment Assessment Problems Medical Problems: (1) Acute on chronic congestive heart failure Status: Acute (2) COPD (chronic obstructive pulmonary disease) Status: Acute (3) Healthcare-associated pneumonia Status: Acute (4) Morbid obesity Status: Acute (5) Sepsis Status: Acute (6) Severe protein-calorie malnutrition Status: Acute (7) Urinary tract infection Status: Acute 1. Acute on chronic respiratory failure. 2. Anemia due to GI bleed 3. Healthcare acquired pneumonia. 4. Sepsis syndrome 5. Chronic obstructive pulmonary disease with exacerbation. 6. Atrial fibrillation with rapid ventricular response. 7. Obstructive sleep apnea. 8. Aortic stenosis. 9. Morbid obesity. 10.Hypertension. 11.Type 2 diabetes. 12.Hypothyroidism. 13.Generalized anxiety disorder. 14.Severe protein-calorie malnutrition. 15.Urinary tract infection. 16. History of diastolic congestive heart failure possibly due to cor pulmonale 17.Status post recent left total knee revision Plan Plan of Care Transfused 2 units packed red blood cells. Transfer pressures and pleasant. Consult GI medicine. Continue supportive care. Continue antibiotics. Comment Review of Relevant I have reviewed the following items donald (where applicable) has been applied. Labs Laboratory Tests Test 02/06/17 16:35 02/06/17 20:45 02/07/17 00:30 02/07/17 01:30 Glucose (Fingerstick) 198 mg/dL (70-99) 229 mg/dL (70-99) Vancomycin Level Trough 14.6 mcg/mL (10.0-20.0) Vancomycin Last Dose Date 02/06/17 Vancomycin Last Dose Time 0700 Nasal Screen MRSA (PCR) Negative (Negative) Test 02/07/17 03:30 02/07/17 08:51 02/07/17 12:01 02/07/17 12:10 White Blood Count 6.8 x10^3/uL (4.0-11.0) Red Blood Count 2.63 x10^6/uL (3.50-5.40) Hemoglobin 7.7 g/dL (12.0-15.5) Hematocrit 23.6 % (36.0-47.0) Mean Corpuscular Volume 90 fL (79-100) Mean Corpuscular Hemoglobin 29 pg (25-35) Mean Corpuscular Hemoglobin Concent 33 g/dL (31-37) Red Cell Distribution Width 16.9 % (11.5-14.5) Platelet Count 372 x10^3/uL (140-400) Neutrophils (%) (Auto) 88 % (31-73) Lymphocytes (%) (Auto) 6 % (24-48) Monocytes (%) (Auto) 6 % (0-9) Eosinophils (%) (Auto) 0 % (0-3) Basophils (%) (Auto) 0 % (0-3) Neutrophils # (Auto) 6.0 x10^3uL (1.8-7.7) Lymphocytes # (Auto) 0.4 x10^3/uL (1.0-4.8) Monocytes # (Auto) 0.4 x10^3/uL (0.0-1.1) Eosinophils # (Auto) 0.0 x10^3/uL (0.0-0.7) Basophils # (Auto) 0.0 x10^3/uL (0.0-0.2) Glucose (Fingerstick) 185 mg/dL (70-99) 209 mg/dL (70-99) O2 Saturation 93 % (92-99) Arterial Blood pH 7.33 (7.35-7.45) Arterial Blood pCO2 at Patient Temp 60 mmHg (35-46) Arterial Blood pO2 at Patient Temp 73 mmHg (65-108) Arterial Blood HCO3 31 mmol/L (21-28) Arterial Blood Base Excess 4 mmol/L (-3-3) FiO2 28 Test 02/07/17 17:26 02/07/17 21:31 02/08/17 08:38 02/08/17 10:45 Glucose (Fingerstick) 221 mg/dL (70-99) 284 mg/dL (70-99) 305 mg/dL (70-99) White Blood Count 14.4 x10^3/uL (4.0-11.0) Red Blood Count 2.03 x10^6/uL (3.50-5.40) Hemoglobin 5.7 g/dL (12.0-15.5) Hematocrit 18.2 % (36.0-47.0) Mean Corpuscular Volume 90 fL (79-100) Mean Corpuscular Hemoglobin 28 pg (25-35) Mean Corpuscular Hemoglobin Concent 31 g/dL (31-37) Red Cell Distribution Width 17.1 % (11.5-14.5) Platelet Count 483 x10^3/uL (140-400) Sodium Level 139 mmol/L (136-145) Potassium Level 5.7 mmol/L (3.5-5.1) Chloride Level 102 mmol/L (98-107) Carbon Dioxide Level 29 mmol/L (21-32) Anion Gap 8 (6-14) Blood Urea Nitrogen 64 mg/dL (7-20) Creatinine 1.0 mg/dL (0.6-1.0) Estimated GFR (Cockcroft-Gault) 53.6 Glucose Level 314 mg/dL (70-99) Calcium Level 8.7 mg/dL (8.5-10.1) Test 02/08/17 12:00 02/08/17 12:18 O2 Saturation 97 % (92-99) Arterial Blood pH 7.36 (7.35-7.45) Arterial Blood pCO2 at Patient Temp 46 mmHg (35-46) Arterial Blood pO2 at Patient Temp 101 mmHg (65-108) Arterial Blood HCO3 26 mmol/L (21-28) Arterial Blood Base Excess 0 mmol/L (-3-3) FiO2 28 Glucose (Fingerstick) 306 mg/dL (70-99) Laboratory Tests Test 02/07/17 17:26 02/07/17 21:31 02/08/17 08:38 02/08/17 10:45 Glucose (Fingerstick) 221 mg/dL (70-99) 284 mg/dL (70-99) 305 mg/dL (70-99) White Blood Count 14.4 x10^3/uL (4.0-11.0) Red Blood Count 2.03 x10^6/uL (3.50-5.40) Hemoglobin 5.7 g/dL (12.0-15.5) Hematocrit 18.2 % (36.0-47.0) Mean Corpuscular Volume 90 fL (79-100) Mean Corpuscular Hemoglobin 28 pg (25-35) Mean Corpuscular Hemoglobin Concent 31 g/dL (31-37) Red Cell Distribution Width 17.1 % (11.5-14.5) Platelet Count 483 x10^3/uL (140-400) Sodium Level 139 mmol/L (136-145) Potassium Level 5.7 mmol/L (3.5-5.1) Chloride Level 102 mmol/L (98-107) Carbon Dioxide Level 29 mmol/L (21-32) Anion Gap 8 (6-14) Blood Urea Nitrogen 64 mg/dL (7-20) Creatinine 1.0 mg/dL (0.6-1.0) Estimated GFR (Cockcroft-Gault) 53.6 Glucose Level 314 mg/dL (70-99) Calcium Level 8.7 mg/dL (8.5-10.1) Test 02/08/17 12:00 02/08/17 12:18 O2 Saturation 97 % (92-99) Arterial Blood pH 7.36 (7.35-7.45) Arterial Blood pCO2 at Patient Temp 46 mmHg (35-46) Arterial Blood pO2 at Patient Temp 101 mmHg (65-108) Arterial Blood HCO3 26 mmol/L (21-28) Arterial Blood Base Excess 0 mmol/L (-3-3) FiO2 28 Glucose (Fingerstick) 306 mg/dL (70-99) Microbiology 02/05/17 Blood Culture - Preliminary, Resulted NO GROWTH AFTER 3 DAYS 02/05/17 Urine Culture - Final, Complete 02/05/17 Urine Culture Result 1 (BISI) - Final, Complete Medications Current Medications Sodium Chloride 1,000 ml @ 620 mls/hr Q1H37M IV Last administered on 10:43; Start 02/05/17 at 09:05; Stop 02/05/17 at 12:05; Status DC Albuterol/ Ipratropium (Duoneb) 6 ml 1X ONCE NEB Last administered on 09:18; Start 02/05/17 at 09:15; Stop 02/05/17 at 09:16; Status DC Meropenem 1 gm/ Sodium Chloride 100 ml @ 200 mls/hr Q8HRS IV ; Start 02/05/17 at 14:00; Status UNV Vancomycin HCl (Vanco Per Pharmacy) 1 each PRN DAILY PRN MC SEE COMMENTS Last administered on 02/08/17 09:21; Start 02/05/17 at 11:30 Levofloxacin/ Dextrose (Levaquin Per Pharmacy) 1 each PRN DAILY PRN MC SEE COMMENTS; Start 02/05/17 at 11:30 Vancomycin HCl 2 gm/Dextrose 500 ml @ 250 mls/hr 1X ONCE IV Last administered on 02/05/17 13:20; Start 02/05/17 at 12:00; Stop 02/05/17 at 13 :59; Status DC Meropenem (Merrem) 1 gm 1X ONCE IVP Last administered on 02/05/17 11:37; Start 02/05/17 at 12:00; Stop 02/05/17 at 19:17; Status DC Levofloxacin/ Dextrose 150 ml @ 100 mls/hr 1X ONCE IV Last administered on 11:38; Start 02/05/17 at 12:00; Stop 02/05/17 at 13:29; Status DC Methylprednisolone Sodium Succinate (SOLU-Medrol 125MG VIAL) 125 mg 1X ONCE IV Last administered on 02/05/17 12:06; Start 02/05/17 at 11:45; Stop at 11:59; Status DC Ondansetron HCl (Zofran) 4 mg PRN Q8HRS PRN IV NAUSEA/VOMITING; Start at 12:00; Stop 02/06/17 at 11:59; Status DC Sodium Chloride 1,000 ml @ 75 mls/hr [id number] IV Last administered on 16:24; Start 02/05/17 at 11:46; Stop 02/06/17 at 11:19; Status DC Acetaminophen (Tylenol) 650 mg PRN Q4HRS PRN PO FEVER Last administered on 03:34; Start 02/05/17 at 12:00; Stop 02/06/17 at 11:59; Status DC Albuterol/ Ipratropium (Duoneb) 3 ml RTQID NEB Last administered on 02/06/17 09:33; Start 02/05/17 at 12:00; Stop 02/06/17 at 11:59; Status DC Dobutamine HCl 2000 mg/Dextrose 250 ml @ 4.59 mls/hr CONT IV ; Start 02/05/17 at 12:00; Stop 02/05/17 at 13:17; Status DC Dobutamine HCl/ Dextrose 250 ml @ 18.375 mls/ hr CONT PRN IV SEE I/O RECORD; Start 02/05/17 at 13:15 Meropenem (Merrem) 1 gm Q8HRS IVP Last administered on 02/05/17 21:03; Start 02/05/17 at 21:00; Stop 02/05/17 at 21:53; Status DC Levofloxacin/ Dextrose 150 ml @ 100 mls/hr Q24H IV Last administered on 12:06; Start 02/06/17 at 12:00 Vancomycin HCl 1.75 gm/Dextrose/ Sodium Chloride 500 ml @ 250 mls/hr Q18H IV Last administered on 02/07/17 19:48; Start 02/06/17 at 07:00; Stop 02/08/17 at 13:27; Status DC Vancomycin HCl 1 each 1X ONCE MC Last administered on 02/07/17 00:30; Start 02/07/17 at 00:30; Stop 02/07/17 at 00:31; Status DC Methylprednisolone Sodium Succinate (SOLU-Medrol 40MG VIAL) 40 mg Q8HRS IV Last administered on 02/08/17 05:33; Start 02/05/17 at 16:00 Enoxaparin Sodium (Lovenox 40mg Syringe) 40 mg Q24H SQ Last administered on 16:24; Start 02/05/17 at 16:00; Stop 02/05/17 at 21:19; Status DC Aspirin (Children'S Aspirin) 81 mg DAILY PO Last administered on 02/08/17 08: 41; Start 02/06/17 at 09:00 Diltiazem HCl (Cardizem 24hr Cd) 120 mg QHS PO Last administered on 02/06/17 20:43; Start 02/05/17 at 21:00 Ferrous Sulfate (Feosol) 325 mg BID PO Last administered on 02/08/17 08:41; Start 02/05/17 at 21:00 Acetaminophen/ Hydrocodone Bitart (Lortab 7.5/325) 2 tab PRN Q6HRS PRN PO PAIN Last administered on 02/08/17 08:50; Start 02/05/17 at 17:15 Levothyroxine Sodium (Synthroid) 137 mcg DAILYAC PO Last administered on 08:40; Start 02/06/17 at 07:30 Warfarin Sodium (Coumadin) 5 mg DAILY16 PO Last administered on 02/07/17 17: 28; Start 02/05/17 at 22:00; Stop 02/08/17 at 09:53; Status DC Citalopram Hydrobromide (CeleXA) 40 mg DAILY PO Last administered on 08:41; Start 02/06/17 at 09:00 Glimepiride (Amaryl) 4 mg BIDWMEALS PO Last administered on 02/08/17 08:40; Start 02/05/17 at 17:30 Losartan Potassium (Cozaar) 25 mg DAILY PO ; Start 02/06/17 at 09:00; Stop at 11:22; Status DC Atorvastatin Calcium (Lipitor) 80 mg QHS PO Last administered on 02/07/17 21: 29; Start 02/05/17 at 21:00 Insulin Aspart (NovoLOG) 0-12 UNITS QIDACHS SQ Last administered on 02/08/17 13:04; Start 02/05/17 at 18:00 Norepinephrine Bitartrate 250 ml @ 0 mls/hr CONT PRN IV SEE I/O RECORD; Start 02/05/17 at 19:00 Albuterol/ Ipratropium (Duoneb) 3 ml STK-MED ONCE .ROUTE ; Start 02/05/17 at 19 :16; Stop 02/05/17 at 19:17; Status DC Meropenem (Merrem) 1 gm Q8HRS IVP Last administered on 02/08/17 05:33; Start 02/06/17 at 06:00; Stop 02/08/17 at 09:00; Status DC Warfarin Sodium (Coumadin Per Physician) 1 each PRN DAILY PRN MC SEE COMMENTS; Start 02/06/17 at 07:45; Status Cancel Lactobacillus Rhamnosus (Culturelle) 1 cap BID PO Last administered on 08:41; Start 02/06/17 at 09:00 Albuterol/ Ipratropium (Duoneb) 3 ml RTQID NEB Last administered on 02/08/17 12:08; Start 02/06/17 at 16:00 Alprazolam (Xanax) 0.5 mg PRN TID PRN PO ANXIETY / AGITATION Last administered on 02/08/17 15:22; Start 02/06/17 at 17:30 Metformin HCl (Glucophage) 500 mg BIDWMEALS PO Last administered on 02/08/17 08:40; Start 02/07/17 at 12:00 Polyethylene Glycol (miraLAX PACKET) 17 gm PRN DAILY PRN PO CONSTIPATION Last administered on 02/07/17 21:29; Start 02/07/17 at 20:00 Alteplase, Recombinant (Cathflo) 2 mg 1X ONCE INT CAT Last administered on 07:32; Start 02/08/17 at 08:00; Stop 02/08/17 at 08:01; Status DC Pantoprazole Sodium 80 mg/ Sodium Chloride 100 ml @ 10 mls/hr Q10H IV ; Start 02/08/17 at 13:30 Vancomycin HCl 1.75 gm/Dextrose/ Sodium Chloride 500 ml @ 250 mls/hr Q18H IV ; Start 02/08/17 at 21:00 Active Scripts Active Reported Ferrous Sulfate 325 Mg Tablet 1 Tab PO BID LAST DOSE GIVEN: DATE:01/08/17 TIME:9:00 a.m. Warfarin Sodium 5 Mg Tablet 1 Tab PO DAILY 30 Days LAST DOSE GIVEN: DATE:01/08/17 TIME:2:00 p.m Levothyroxine Sodium 137 Mcg Tablet 137 Mcg PO DAILYAC LAST DOSE GIVEN: DATE:01/08/17 TIME:7:30 a.m. Furosemide 40 Mg Tablet 40 Mg PO DAILY LAST DOSE GIVEN: DATE:01/07/17 TIME:9:00 a.m. Aspirin 81 Mg Tab.chew 1 Tab PO DAILY LAST DOSE GIVEN: DATE:01/08/17 TIME:9:00 a.m. Hydrocodone-Apap 7.5-325 (Hydrocodone Bit/Acetaminophen) 1 Each Tablet 1-2 Tab PO PRN Q6HRS PRN Took at 12:30 today may take anytime as needed for pain every 4 hours Amaryl (Glimepiride) 4 Mg Tablet 1 Tab PO BID LAST DOSE GIVEN: DATE:01/08/17 TIME:9:00 a.m. Potassium Chloride 20 Meq Tab.er.prt 1 Tab PO WEEKLY Meds not given this hospital admission. May resume home medications as approved by Physician. TIME: 8:30 a.m. NEXT DOSE DUE: DATE: 12-28-15 TIME: 8:30 a.m. Metolazone 5 Mg Tablet 5 Mg PO WEEKLY Meds not given this hospital admission. May resume home medications as approved by Physician. TIME: 8:30 a.m. NEXT DOSE DUE: DATE: 12-28-15 TIME: 8:30 a.m. Lexapro (Escitalopram Oxalate) 10 Mg Tablet 20 Mg PO DAILY LAST DOSE GIVEN: DATE:01/08/17 TIME:9:00 a.m. NEXT DOSE DUE: DATE: 12-28-15 TIME: 8:30 a.m. Cardizem Cd (Diltiazem Hcl) 240 Mg Cap.er.24h 120 Mg PO HS LAST DOSE GIVEN: DATE:01/07/17 TIME:9:00 p.m. NEXT DOSE DUE: DATE: 12-27-15 TIME: 9:00 p.m. Losartan Potassium 100 Mg Tablet 25 Mg PO DAILY LAST DOSE GIVEN: DATE:01/07/17 TIME:9:00 a.m. Crestor (Rosuvastatin Calcium) 40 Mg Tablet 40 Mg PO QHS LAST DOSE GIVEN: DATE:01/07/17 TIME:9:00 p.m. NEXT DOSE DUE: DATE: 12-27-15 TIME: 9:00 p.m. Vitals/I & O Vital Sign - Last 24 Hours 02/07/17 02/07/17 02/07/17 02/07/17 16:05 17:00 17:45 18:00 Pulse 122 132 Resp 29 26 25 B/P (MAP) 108/68 (81) 106/51 (69) Pulse Ox 94 95 96 93 O2 Delivery Nasal Cannula Nasal Cannula Nasal Cannula Nasal Cannula O2 Flow Rate 2.0 2.0 2.0 2.0 02/07/17 02/07/17 02/07/17 02/07/17 18:53 19:00 20:00 20:00 Temp 98.5 98.5 Pulse 111 120 Resp 21 22 18 B/P (MAP) 93/64 (74) 87/59 (68) Pulse Ox 96 95 94 O2 Delivery Nasal Cannula Nasal Cannula O2 Flow Rate 2.0 2.0 4.0 02/07/17 02/07/17 02/07/17 02/07/17 20:00 20:15 21:00 21:00 Pulse 110 116 Resp 23 B/P (MAP) 87/59 87/58 (68) Pulse Ox 95 96 O2 Delivery Nasal Cannula Nasal Cannula Nasal Cannula O2 Flow Rate 2.0 2.0 2.0 02/07/17 02/07/17 02/07/17 02/08/17 22:00 23:00 23:35 00:00 Temp 98.5 98.5 Pulse 121 114 98 Resp 23 16 15 B/P (MAP) 96/58 (71) 105/66 (79) 97/50 (66) Pulse Ox 96 97 98 98 O2 Delivery Nasal Cannula BiPAP/CPAP BiPAP/CPAP BiPAP/CPAP O2 Flow Rate 2.0 02/08/17 02/08/17 02/08/17 02/08/17 00:00 01:00 01:35 02:00 Pulse 106 106 Resp 19 19 B/P (MAP) 101/61 (74) 89/52 (64) Pulse Ox 98 98 97 O2 Delivery Bi-pap BiPAP/CPAP BiPAP/CPAP BiPAP/CPAP 02/08/17 02/08/17 02/08/17 02/08/17 03:00 03:55 04:00 04:00 Temp 98.5 98.5 Pulse 119 120 Resp 21 33 B/P (MAP) 101/93 (96) Pulse Ox 100 98 98 O2 Delivery BiPAP/CPAP BiPAP/CPAP BiPAP/CPAP Bi-pap 02/08/17 02/08/17 02/08/17 02/08/17 05:00 06:00 07:00 08:00 Pulse 126 126 119 Resp 27 21 20 B/P (MAP) 82/58 (66) 92/55 (67) 98/65 (76) Pulse Ox 96 99 99 O2 Delivery Nasal Cannula Nasal Cannula Nasal Cannula Nasal Cannula O2 Flow Rate 2.0 2.0 2.0 2.0 02/08/17 02/08/17 02/08/17 02/08/17 08:00 08:30 08:50 09:00 Temp 98.0 98.0 Pulse 113 135 Resp 17 26 B/P (MAP) 116/54 (74) 91/67 (75) Pulse Ox 100 99 98 O2 Delivery Nasal Cannula Nasal Cannula Nasal Cannula Nasal Cannula O2 Flow Rate 2.0 4.0 2.0 2.0 02/08/17 02/08/17 02/08/17 02/08/17 10:00 10:26 11:00 12:00 Pulse 132 134 Resp 22 24 B/P (MAP) 83/39 (54) 104/60 (75) Pulse Ox 100 100 O2 Delivery Nasal Cannula Nasal Cannula Nasal Cannula Nasal Cannula O2 Flow Rate 2.0 2.0 2.0 2.0 02/08/17 02/08/17 02/08/17 02/08/17 12:00 12:01 12:42 12:57 Temp 97.9 97.9 97.8 97.9 97.9 97.8 Pulse 138 149 128 Resp 28 31 25 B/P (MAP) 103/61 (75) 82/40 109/62 Pulse Ox 99 98 O2 Delivery Nasal Cannula Nasal Cannula O2 Flow Rate 2.0 2.0 02/08/17 02/08/17 02/08/17 02/08/17 13:00 13:57 14:00 14:28 Temp 98.0 98.0 98.0 98.0 Pulse 152 144 138 139 Resp 27 27 24 32 B/P (MAP) 109/62 (78) 109/62 111/75 (87) 92/53 Pulse Ox 98 96 O2 Delivery Nasal Cannula Nasal Cannula O2 Flow Rate 2.0 2.0 02/08/17 15:00 Pulse 134 Resp 16 B/P (MAP) 115/81 (92) Pulse Ox 97 O2 Delivery Nasal Cannula O2 Flow Rate 2.0 Intake and Output 02/07/17 02/07/17 02/08/17 15:00 23:00 07:00 Intake Total 290 ml 300 ml 807 ml Output Total 0 ml 5 ml Balance 290 ml 300 ml 802 ml JUAN COOK MD Feb 08, 2017 16:19
[2017-02-08] MEDS: PANTOPRAZOLE SODIUM IV DRIP 80 MG in IV NORMAL SALINE 100ML 100 ML IV SCH (16:59)
--- NOTE | 2017-02-08 16:59 | RAD ---
GI bleeding scan 02/08/2017 Clinical history: Melena. Technique: After the intravenous administration of 33 mCi of Technetium 99m ultra tagged red blood cells, imaging of the abdomen/pelvis was performed using the gamma camera for 60 minutes. Findings: Normal activity is seen within the heart, liver, spleen and major vascular structures of the abdomen and pelvis. No area of abnormal activity is seen to suggest evidence of active GI bleeding. Impression: There is no scintigraphic evidence of active GI bleeding.
[2017-02-08] MEDS ORDERED: DIGOXIN IV 500 MCG/2 ML AMPUL. IV ONE ×2 (18:15→19:45)
--- NOTE | 2017-02-08 19:20 | PDOC ---
PROGRESS NOTES Subjective Subjective Is tachycardic. She is in A. fib with RVR. Hemoglobin has dropped. She is receiving blood. Objective Objective Vital Signs Date Time Temp Pulse Resp B/P (MAP) Pulse Ox O2 Delivery O2 Flow Rate FiO2 02/08/17 18:41 98.2 150 17 107/69 98.2 02/08/17 18:00 97 Nasal Cannula 2.0 Intake and Output 02/08/17 07:00 Intake Total 1397 ml Output Total 5 ml Balance 1392 ml Intake Oral 590 ml IV Total 807 ml Output Urine Total 3 ml Stool Total 2 ml # Voids 1 Physical Exam Physical Exam Tachycardic, no other changes in cardiac findings. She is in A. fib Breast sounds are decreased, diffuse rhonchi. Assessment Assessment I agree with the blood transfusions. We will give the patient IV Digoxin at this point to try to help with the rate control. Problems Medical Problems: (1) Acute on chronic congestive heart failure Status: Acute (2) COPD (chronic obstructive pulmonary disease) Status: Acute (3) Healthcare-associated pneumonia Status: Acute (4) Morbid obesity Status: Acute (5) Sepsis Status: Acute (6) Severe protein-calorie malnutrition Status: Acute (7) Urinary tract infection Status: Acute Comment Review of Relevant I have reviewed the following items donald (where applicable) has been applied. Labs Laboratory Tests Test 02/06/17 20:45 02/07/17 00:30 02/07/17 01:30 02/07/17 03:30 Glucose (Fingerstick) 229 mg/dL (70-99) Vancomycin Level Trough 14.6 mcg/mL (10.0-20.0) Vancomycin Last Dose Date 02/06/17 Vancomycin Last Dose Time 0700 Nasal Screen MRSA (PCR) Negative (Negative) White Blood Count 6.8 x10^3/uL (4.0-11.0) Red Blood Count 2.63 x10^6/uL (3.50-5.40) Hemoglobin 7.7 g/dL (12.0-15.5) Hematocrit 23.6 % (36.0-47.0) Mean Corpuscular Volume 90 fL (79-100) Mean Corpuscular Hemoglobin 29 pg (25-35) Mean Corpuscular Hemoglobin Concent 33 g/dL (31-37) Red Cell Distribution Width 16.9 % (11.5-14.5) Platelet Count 372 x10^3/uL (140-400) Neutrophils (%) (Auto) 88 % (31-73) Lymphocytes (%) (Auto) 6 % (24-48) Monocytes (%) (Auto) 6 % (0-9) Eosinophils (%) (Auto) 0 % (0-3) Basophils (%) (Auto) 0 % (0-3) Neutrophils # (Auto) 6.0 x10^3uL (1.8-7.7) Lymphocytes # (Auto) 0.4 x10^3/uL (1.0-4.8) Monocytes # (Auto) 0.4 x10^3/uL (0.0-1.1) Eosinophils # (Auto) 0.0 x10^3/uL (0.0-0.7) Basophils # (Auto) 0.0 x10^3/uL (0.0-0.2) Test 02/07/17 08:51 02/07/17 12:01 02/07/17 12:10 02/07/17 17:26 Glucose (Fingerstick) 185 mg/dL (70-99) 209 mg/dL (70-99) 221 mg/dL (70-99) O2 Saturation 93 % (92-99) Arterial Blood pH 7.33 (7.35-7.45) Arterial Blood pCO2 at Patient Temp 60 mmHg (35-46) Arterial Blood pO2 at Patient Temp 73 mmHg (65-108) Arterial Blood HCO3 31 mmol/L (21-28) Arterial Blood Base Excess 4 mmol/L (-3-3) FiO2 28 Test 02/07/17 21:31 02/08/17 08:38 02/08/17 10:45 02/08/17 12:00 Glucose (Fingerstick) 284 mg/dL (70-99) 305 mg/dL (70-99) White Blood Count 14.4 x10^3/uL (4.0-11.0) Red Blood Count 2.03 x10^6/uL (3.50-5.40) Hemoglobin 5.7 g/dL (12.0-15.5) Hematocrit 18.2 % (36.0-47.0) Mean Corpuscular Volume 90 fL (79-100) Mean Corpuscular Hemoglobin 28 pg (25-35) Mean Corpuscular Hemoglobin Concent 31 g/dL (31-37) Red Cell Distribution Width 17.1 % (11.5-14.5) Platelet Count 483 x10^3/uL (140-400) Sodium Level 139 mmol/L (136-145) Potassium Level 5.7 mmol/L (3.5-5.1) Chloride Level 102 mmol/L (98-107) Carbon Dioxide Level 29 mmol/L (21-32) Anion Gap 8 (6-14) Blood Urea Nitrogen 64 mg/dL (7-20) Creatinine 1.0 mg/dL (0.6-1.0) Estimated GFR (Cockcroft-Gault) 53.6 Glucose Level 314 mg/dL (70-99) Calcium Level 8.7 mg/dL (8.5-10.1) O2 Saturation 97 % (92-99) Arterial Blood pH 7.36 (7.35-7.45) Arterial Blood pCO2 at Patient Temp 46 mmHg (35-46) Arterial Blood pO2 at Patient Temp 101 mmHg (65-108) Arterial Blood HCO3 26 mmol/L (21-28) Arterial Blood Base Excess 0 mmol/L (-3-3) FiO2 28 Test 02/08/17 12:18 02/08/17 17:43 Glucose (Fingerstick) 306 mg/dL (70-99) 293 mg/dL (70-99) Laboratory Tests Test 02/07/17 21:31 02/08/17 08:38 02/08/17 10:45 02/08/17 12:00 Glucose (Fingerstick) 284 mg/dL (70-99) 305 mg/dL (70-99) White Blood Count 14.4 x10^3/uL (4.0-11.0) Red Blood Count 2.03 x10^6/uL (3.50-5.40) Hemoglobin 5.7 g/dL (12.0-15.5) Hematocrit 18.2 % (36.0-47.0) Mean Corpuscular Volume 90 fL (79-100) Mean Corpuscular Hemoglobin 28 pg (25-35) Mean Corpuscular Hemoglobin Concent 31 g/dL (31-37) Red Cell Distribution Width 17.1 % (11.5-14.5) Platelet Count 483 x10^3/uL (140-400) Sodium Level 139 mmol/L (136-145) Potassium Level 5.7 mmol/L (3.5-5.1) Chloride Level 102 mmol/L (98-107) Carbon Dioxide Level 29 mmol/L (21-32) Anion Gap 8 (6-14) Blood Urea Nitrogen 64 mg/dL (7-20) Creatinine 1.0 mg/dL (0.6-1.0) Estimated GFR (Cockcroft-Gault) 53.6 Glucose Level 314 mg/dL (70-99) Calcium Level 8.7 mg/dL (8.5-10.1) O2 Saturation 97 % (92-99) Arterial Blood pH 7.36 (7.35-7.45) Arterial Blood pCO2 at Patient Temp 46 mmHg (35-46) Arterial Blood pO2 at Patient Temp 101 mmHg (65-108) Arterial Blood HCO3 26 mmol/L (21-28) Arterial Blood Base Excess 0 mmol/L (-3-3) FiO2 28 Test 02/08/17 12:18 02/08/17 17:43 Glucose (Fingerstick) 306 mg/dL (70-99) 293 mg/dL (70-99) Microbiology 02/05/17 Blood Culture - Preliminary, Resulted NO GROWTH AFTER 3 DAYS 02/05/17 Urine Culture - Final, Complete 02/05/17 Urine Culture Result 1 (BISI) - Final, Complete Medications Current Medications Sodium Chloride 1,000 ml @ 620 mls/hr Q1H37M IV Last administered on 10:43; Start 02/05/17 at 09:05; Stop 02/05/17 at 12:05; Status DC Albuterol/ Ipratropium (Duoneb) 6 ml 1X ONCE NEB Last administered on 09:18; Start 02/05/17 at 09:15; Stop 02/05/17 at 09:16; Status DC Meropenem 1 gm/ Sodium Chloride 100 ml @ 200 mls/hr Q8HRS IV ; Start 02/05/17 at 14:00; Status UNV Vancomycin HCl (Vanco Per Pharmacy) 1 each PRN DAILY PRN MC SEE COMMENTS Last administered on 02/08/17 09:21; Start 02/05/17 at 11:30 Levofloxacin/ Dextrose (Levaquin Per Pharmacy) 1 each PRN DAILY PRN MC SEE COMMENTS; Start 02/05/17 at 11:30 Vancomycin HCl 2 gm/Dextrose 500 ml @ 250 mls/hr 1X ONCE IV Last administered on 02/05/17 13:20; Start 02/05/17 at 12:00; Stop 02/05/17 at 13 :59; Status DC Meropenem (Merrem) 1 gm 1X ONCE IVP Last administered on 02/05/17 11:37; Start 02/05/17 at 12:00; Stop 02/05/17 at 19:17; Status DC Levofloxacin/ Dextrose 150 ml @ 100 mls/hr 1X ONCE IV Last administered on 11:38; Start 02/05/17 at 12:00; Stop 02/05/17 at 13:29; Status DC Methylprednisolone Sodium Succinate (SOLU-Medrol 125MG VIAL) 125 mg 1X ONCE IV Last administered on 02/05/17 12:06; Start 02/05/17 at 11:45; Stop at 11:59; Status DC Ondansetron HCl (Zofran) 4 mg PRN Q8HRS PRN IV NAUSEA/VOMITING; Start at 12:00; Stop 02/06/17 at 11:59; Status DC Sodium Chloride 1,000 ml @ 75 mls/hr [id number] IV Last administered on 16:24; Start 02/05/17 at 11:46; Stop 02/06/17 at 11:19; Status DC Acetaminophen (Tylenol) 650 mg PRN Q4HRS PRN PO FEVER Last administered on 03:34; Start 02/05/17 at 12:00; Stop 02/06/17 at 11:59; Status DC Albuterol/ Ipratropium (Duoneb) 3 ml RTQID NEB Last administered on 02/06/17 09:33; Start 02/05/17 at 12:00; Stop 02/06/17 at 11:59; Status DC Dobutamine HCl 2000 mg/Dextrose 250 ml @ 4.59 mls/hr CONT IV ; Start 02/05/17 at 12:00; Stop 02/05/17 at 13:17; Status DC Dobutamine HCl/ Dextrose 250 ml @ 18.375 mls/ hr CONT PRN IV SEE I/O RECORD; Start 02/05/17 at 13:15 Meropenem (Merrem) 1 gm Q8HRS IVP Last administered on 02/05/17 21:03; Start 02/05/17 at 21:00; Stop 02/05/17 at 21:53; Status DC Levofloxacin/ Dextrose 150 ml @ 100 mls/hr Q24H IV Last administered on 12:06; Start 02/06/17 at 12:00 Vancomycin HCl 1.75 gm/Dextrose/ Sodium Chloride 500 ml @ 250 mls/hr Q18H IV Last administered on 02/07/17 19:48; Start 02/06/17 at 07:00; Stop 02/08/17 at 13:27; Status DC Vancomycin HCl 1 each 1X ONCE MC Last administered on 02/07/17 00:30; Start 02/07/17 at 00:30; Stop 02/07/17 at 00:31; Status DC Methylprednisolone Sodium Succinate (SOLU-Medrol 40MG VIAL) 40 mg Q8HRS IV Last administered on 02/08/17 16:56; Start 02/05/17 at 16:00 Enoxaparin Sodium (Lovenox 40mg Syringe) 40 mg Q24H SQ Last administered on 16:24; Start 02/05/17 at 16:00; Stop 02/05/17 at 21:19; Status DC Aspirin (Children'S Aspirin) 81 mg DAILY PO Last administered on 02/08/17 08: 41; Start 02/06/17 at 09:00 Diltiazem HCl (Cardizem 24hr Cd) 120 mg QHS PO Last administered on 02/06/17 20:43; Start 02/05/17 at 21:00 Ferrous Sulfate (Feosol) 325 mg BID PO Last administered on 02/08/17 08:41; Start 02/05/17 at 21:00 Acetaminophen/ Hydrocodone Bitart (Lortab 7.5/325) 2 tab PRN Q6HRS PRN PO PAIN Last administered on 02/08/17 08:50; Start 02/05/17 at 17:15 Levothyroxine Sodium (Synthroid) 137 mcg DAILYAC PO Last administered on 08:40; Start 02/06/17 at 07:30 Warfarin Sodium (Coumadin) 5 mg DAILY16 PO Last administered on 02/07/17 17: 28; Start 02/05/17 at 22:00; Stop 02/08/17 at 09:53; Status DC Citalopram Hydrobromide (CeleXA) 40 mg DAILY PO Last administered on 08:41; Start 02/06/17 at 09:00 Glimepiride (Amaryl) 4 mg BIDWMEALS PO Last administered on 02/08/17 08:40; Start 02/05/17 at 17:30 Losartan Potassium (Cozaar) 25 mg DAILY PO ; Start 02/06/17 at 09:00; Stop at 11:22; Status DC Atorvastatin Calcium (Lipitor) 80 mg QHS PO Last administered on 02/07/17 21: 29; Start 02/05/17 at 21:00 Insulin Aspart (NovoLOG) 0-12 UNITS QIDACHS SQ Last administered on 02/08/17 17:46; Start 02/05/17 at 18:00 Norepinephrine Bitartrate 250 ml @ 0 mls/hr CONT PRN IV SEE I/O RECORD; Start 02/05/17 at 19:00 Albuterol/ Ipratropium (Duoneb) 3 ml STK-MED ONCE .ROUTE ; Start 02/05/17 at 19 :16; Stop 02/05/17 at 19:17; Status DC Meropenem (Merrem) 1 gm Q8HRS IVP Last administered on 02/08/17 05:33; Start 02/06/17 at 06:00; Stop 02/08/17 at 09:00; Status DC Warfarin Sodium (Coumadin Per Physician) 1 each PRN DAILY PRN MC SEE COMMENTS; Start 02/06/17 at 07:45; Status Cancel Lactobacillus Rhamnosus (Culturelle) 1 cap BID PO Last administered on 08:41; Start 02/06/17 at 09:00 Albuterol/ Ipratropium (Duoneb) 3 ml RTQID NEB Last administered on 02/08/17 16:25; Start 02/06/17 at 16:00 Alprazolam (Xanax) 0.5 mg PRN TID PRN PO ANXIETY / AGITATION Last administered on 02/08/17 15:22; Start 02/06/17 at 17:30 Metformin HCl (Glucophage) 500 mg BIDWMEALS PO Last administered on 02/08/17 08:40; Start 02/07/17 at 12:00 Polyethylene Glycol (miraLAX PACKET) 17 gm PRN DAILY PRN PO CONSTIPATION Last administered on 02/07/17 21:29; Start 02/07/17 at 20:00 Alteplase, Recombinant (Cathflo) 2 mg 1X ONCE INT CAT Last administered on 07:32; Start 02/08/17 at 08:00; Stop 02/08/17 at 08:01; Status DC Pantoprazole Sodium 80 mg/ Sodium Chloride 100 ml @ 10 mls/hr Q10H IV Last administered on 02/08/17 16:59; Start 02/08/17 at 13:30 Vancomycin HCl 1.75 gm/Dextrose/ Sodium Chloride 500 ml @ 250 mls/hr Q18H IV ; Start 02/08/17 at 21:00 Digoxin (Lanoxin) 500 mcg 1X ONCE IV Last administered on 02/08/17 18:30; Start 02/08/17 at 18:15; Stop 02/08/17 at 18:26; Status DC Digoxin (Lanoxin) 250 mcg 1X ONCE IV ; Start 02/08/17 at 19:45; Stop at 19:46 Active Scripts Active Reported Ferrous Sulfate 325 Mg Tablet 1 Tab PO BID LAST DOSE GIVEN: DATE:01/08/17 TIME:9:00 a.m. Warfarin Sodium 5 Mg Tablet 1 Tab PO DAILY 30 Days LAST DOSE GIVEN: DATE:01/08/17 TIME:2:00 p.m Levothyroxine Sodium 137 Mcg Tablet 137 Mcg PO DAILYAC LAST DOSE GIVEN: DATE:01/08/17 TIME:7:30 a.m. Furosemide 40 Mg Tablet 40 Mg PO DAILY LAST DOSE GIVEN: DATE:01/07/17 TIME:9:00 a.m. Aspirin 81 Mg Tab.chew 1 Tab PO DAILY LAST DOSE GIVEN: DATE:01/08/17 TIME:9:00 a.m. Hydrocodone-Apap 7.5-325 (Hydrocodone Bit/Acetaminophen) 1 Each Tablet 1-2 Tab PO PRN Q6HRS PRN Took at 12:30 today may take anytime as needed for pain every 4 hours Amaryl (Glimepiride) 4 Mg Tablet 1 Tab PO BID LAST DOSE GIVEN: DATE:01/08/17 TIME:9:00 a.m. Potassium Chloride 20 Meq Tab.er.prt 1 Tab PO WEEKLY Meds not given this hospital admission. May resume home medications as approved by Physician. TIME: 8:30 a.m. NEXT DOSE DUE: DATE: 12-28-15 TIME: 8:30 a.m. Metolazone 5 Mg Tablet 5 Mg PO WEEKLY Meds not given this hospital admission. May resume home medications as approved by Physician. TIME: 8:30 a.m. NEXT DOSE DUE: DATE: 12-28-15 TIME: 8:30 a.m. Lexapro (Escitalopram Oxalate) 10 Mg Tablet 20 Mg PO DAILY LAST DOSE GIVEN: DATE:01/08/17 TIME:9:00 a.m. NEXT DOSE DUE: DATE: 12-28-15 TIME: 8:30 a.m. Cardizem Cd (Diltiazem Hcl) 240 Mg Cap.er.24h 120 Mg PO HS LAST DOSE GIVEN: DATE:01/07/17 TIME:9:00 p.m. NEXT DOSE DUE: DATE: 12-27-15 TIME: 9:00 p.m. Losartan Potassium 100 Mg Tablet 25 Mg PO DAILY LAST DOSE GIVEN: DATE:01/07/17 TIME:9:00 a.m. Crestor (Rosuvastatin Calcium) 40 Mg Tablet 40 Mg PO QHS LAST DOSE GIVEN: DATE:01/07/17 TIME:9:00 p.m. NEXT DOSE DUE: DATE: 12-27-15 TIME: 9:00 p.m. Vitals/I & O Vital Sign - Last 24 Hours 02/07/17 02/07/17 02/07/17 02/07/17 20:00 20:00 20:00 20:15 Temp 98.5 98.5 Pulse 120 Resp 18 B/P (MAP) 87/59 (68) Pulse Ox 94 95 O2 Delivery Nasal Cannula Nasal Cannula Nasal Cannula O2 Flow Rate 2.0 4.0 2.0 2.0 02/07/17 02/07/17 02/07/1702/07/17 21:00 21:00 22:00 23:00 Pulse 110 116 121 114 Resp 23 23 16 B/P (MAP) 87/59 87/58 (68) 96/58 (71) 105/66 (79) Pulse Ox 96 96 97 O2 Delivery Nasal Cannula Nasal Cannula BiPAP/CPAP O2 Flow Rate 2.0 2.0 02/07/17 02/08/17 02/08/17 02/08/17 23:35 00:00 00:00 01:00 Temp 98.5 98.5 Pulse 98 106 Resp 15 19 B/P (MAP) 97/50 (66) 101/61 (74) Pulse Ox 98 98 98 O2 Delivery BiPAP/CPAP BiPAP/CPAP Bi-pap BiPAP/CPAP 02/08/17 02/08/17 02/08/17 02/08/17 01:35 02:00 03:00 03:55 Pulse 106 119 Resp 19 21 B/P (MAP) 89/52 (64) 101/93 (96) Pulse Ox 98 97 100 98 O2 Delivery BiPAP/CPAP BiPAP/CPAP BiPAP/CPAP BiPAP/CPAP 02/08/17 02/08/17 02/08/17 02/08/17 04:00 04:00 05:00 06:00 Temp 98.5 98.5 Pulse 120 126 126 Resp 33 27 21 B/P (MAP) 82/58 (66) 92/55 (67) Pulse Ox 98 96 99 O2 Delivery BiPAP/CPAP Bi-pap Nasal Cannula Nasal Cannula O2 Flow Rate 2.0 2.0 02/08/17 02/08/17 02/08/17 02/08/17 07:00 08:00 08:00 08:30 Temp 98.0 98.0 Pulse 119 113 Resp 20 17 B/P (MAP) 98/65 (76) 116/54 (74) Pulse Ox 99 100 99 O2 Delivery Nasal Cannula Nasal Cannula Nasal Cannula Nasal Cannula O2 Flow Rate 2.0 2.0 2.0 4.0 02/08/17 02/08/17 02/08/17 02/08/17 08:50 09:00 10:00 10:26 Pulse 135 132 Resp 26 22 B/P (MAP) 91/67 (75) 83/39 (54) Pulse Ox 98 100 O2 Delivery Nasal Cannula Nasal Cannula Nasal Cannula Nasal Cannula O2 Flow Rate 2.0 2.0 2.0 2.0 02/08/17 02/08/17 02/08/17 02/08/17 11:00 12:00 12:00 12:01 Temp 97.9 97.9 Pulse 134 138 Resp 24 28 B/P (MAP) 104/60 (75) 103/61 (75) Pulse Ox 100 99 98 O2 Delivery Nasal Cannula Nasal Cannula Nasal Cannula Nasal Cannula O2 Flow Rate 2.0 2.0 2.0 2.0 02/08/17 02/08/17 02/08/17 02/08/17 12:42 12:57 13:00 13:57 Temp 97.9 97.8 98.0 97.9 97.8 98.0 Pulse 149 128 152 144 Resp 31 27 27 B/P (MAP) 82/40 109/62 109/62 (78) 109/62 Pulse Ox 98 O2 Delivery Nasal Cannula O2 Flow Rate 2.0 02/08/17 02/08/17 02/08/17 02/08/17 14:00 14:28 14:43 15:00 Temp 98.0 98.0 98.0 98.0 Pulse 138 139 142 134 Resp 24 32 21 16 B/P (MAP) 111/75 (87) 92/53 92/53 115/81 (92) Pulse Ox 96 97 O2 Delivery Nasal Cannula Nasal Cannula O2 Flow Rate 2.0 2.0 02/08/17 02/08/17 02/08/17 02/08/17 15:43 16:00 16:00 16:25 Temp 98.4 98.5 98.4 98.5 Pulse 146 146 Resp 22 22 B/P (MAP) 115/81 115/88 (97) Pulse Ox 98 95 O2 Delivery Nasal Cannula Nasal Cannula Nasal Cannula O2 Flow Rate 2.0 2.0 2.0 02/08/17 02/08/17 02/08/17 02/08/17 16:43 17:00 17:09 17:24 Temp 98.7 98.7 98.5 98.7 98.7 98.5 Pulse 138 138 138 155 Resp 19 15 19 21 B/P (MAP) 106/73 107/64 (78) 106/73 115/88 Pulse Ox 96 O2 Delivery Nasal Cannula O2 Flow Rate 2.0 12/02/08/17 02/08/17 02/08/17 18:00 18:20 18:30 18:41 Temp 98.2 98.2 98.2 98.2 Pulse 147 146 146 150 Resp B/P (MAP) 102/75 (84) 107/69 107/69 107/69 Pulse Ox 97 O2 Delivery Nasal Cannula O2 Flow Rate 2.0 Intake and Output 02/07/17 02/07/17 02/08/17 15:00 23:00 07:00 Intake Total 290 ml 300 ml 807 ml Output Total 0 ml 5 ml Balance 290 ml 300 ml 802 ml CRYSTAL ARCHULETA MD Feb 08, 2017 19:20
[2017-02-08] MEDS ORDERED: fentaNYL PF VIAL 100 MCG/2 ML VIAL IV PRN (20:30)
[2017-02-08 20:40] LABS: HEMATOCRIT 18.3 % (36.0-47.0)
[2017-02-08 20:48] LABS: INR 2.7 (0.8-1.1); PROTHROMBIN TIME PATIENT 27.1 SEC (11.7-14.0)
[2017-02-08] MEDS: ATORVASTATIN CALCIUM 40 MG TABLET. PO SCH (21:00)
[2017-02-08] MEDS ORDERED: ALBUMIN HUMAN 5% 500 ML IV ONE (22:00)
[2017-02-09] VITALS (32 sets, daily range): BP systolic 83–139; BP diastolic 43–94
[2017-02-09] MEDS: PANTOPRAZOLE SODIUM IV DRIP 80 MG in IV NORMAL SALINE 100ML 100 ML IV SCH ×3 (01:01→20:35)
[2017-02-09] MEDS: methylPREDNISolone SOD SUCC PF 40 MG/ML VIAL. IV SCH ×3 (05:11→21:02)
[2017-02-09 06:02] LABS: RED BLOOD COUNT 1.92 x10^6/uL (3.50-5.40); RED CELL DISTRIBUTION WIDTH 15.5 % (11.5-14.5); WHITE BLOOD COUNT 12.9 x10^3/uL (4.0-11.0)
[2017-02-09] MEDS: ALPRAZolam 0.5 MG TABLET PO PRN (06:32)
[2017-02-09 06:52] LABS: HEMATOCRIT 17.1 % (36.0-47.0); HEMOGLOBIN 5.6 g/dL (12.0-15.5)
[2017-02-09 07:27] LABS: PROTHROMBIN TIME PATIENT 36.4 SEC (11.7-14.0)
[2017-02-09] MEDS: LEVOTHYROXINE 137 MCG TABLET PO SCH (07:30)
[2017-02-09] MEDS: metFORMIN 500 MG TABLET PO SCH ×2 (07:54→17:00)
[2017-02-09] MEDS: GLIMEPIRIDE 2 MG TABLET. PO SCH ×2 (07:54→17:00)
[2017-02-09] MEDS: ASPIRIN CHEWABLE 81 MG TABLET. PO SCH (07:55)
[2017-02-09] MEDS: LACTOBACILLUS RHAMNOSUS GG 1 CAPSULE. PO SCH ×2 (07:55→20:31)
[2017-02-09] MEDS: FERROUS SULFATE 325 MG TABLET. PO SCH ×2 (07:55→20:31)
[2017-02-09] MEDS: INSULIN ASPART 300 UNITS/3 ML INSULN.PEN SQ SCH ×4 (07:58→20:41)
[2017-02-09] MEDS ORDERED: PHYTONADIONE (VIT K1) IV 10 MG in IV NORMAL SALINE 50ML 50 ML IV ONE (08:00)
--- NOTE | 2017-02-09 08:19 | PDOC ---
Infectious Disease Note Subjective Subjective pt had gi bleed yesterday, required 4 units of PRBC and 2 units FFP HB 5.6, PT high says is weak otherwise ok dry cough Lt knee pain resolved ROS ROS as above no nausea, vomiting sob baseline cough dry no knee pain Vital Sign Vital Signs Vital Signs Date Time Temp Pulse Resp B/P (MAP) Pulse Ox O2 Delivery O2 Flow Rate FiO2 02/09/17 08:00 97.6 106 17 108/51 97.6 02/09/17 05:55 95 Nasal Cannula 2.0 Physical Exam PHYSICAL EXAM GEN: fatigued , alert awake HEENT: oral mucosa dry, no icterus Cardiac: irregular, tachycardia Lungs:dec bs at bases Abd: soft, non distended Ext: 2+ pitting edema LE bilaterally, chronic venous stasis changes RLE, erythema in left knee and LLE has completely resolved Neuro: grossly nonfocal Labs Lab Laboratory Tests Test 02/08/17 08:38 02/08/17 10:45 02/08/17 12:00 02/08/17 12:18 Glucose (Fingerstick) 305 mg/dL (70-99) 306 mg/dL (70-99) White Blood Count 14.4 x10^3/uL (4.0-11.0) Red Blood Count 2.03 x10^6/uL (3.50-5.40) Hemoglobin 5.7 g/dL (12.0-15.5) Hematocrit 18.2 % (36.0-47.0) Mean Corpuscular Volume 90 fL (79-100) Mean Corpuscular Hemoglobin 28 pg (25-35) Mean Corpuscular Hemoglobin Concent 31 g/dL (31-37) Red Cell Distribution Width 17.1 % (11.5-14.5) Platelet Count 483 x10^3/uL (140-400) Sodium Level 139 mmol/L (136-145) Potassium Level 5.7 mmol/L (3.5-5.1) Chloride Level 102 mmol/L (98-107) Carbon Dioxide Level 29 mmol/L (21-32) Anion Gap 8 (6-14) Blood Urea Nitrogen 64 mg/dL (7-20) Creatinine 1.0 mg/dL (0.6-1.0) Estimated GFR (Cockcroft-Gault) 53.6 Glucose Level 314 mg/dL (70-99) Calcium Level 8.7 mg/dL (8.5-10.1) O2 Saturation 97 % (92-99) Arterial Blood pH 7.36 (7.35-7.45) Arterial Blood pCO2 at Patient Temp 46 mmHg (35-46) Arterial Blood pO2 at Patient Temp 101 mmHg (65-108) Arterial Blood HCO3 26 mmol/L (21-28) Arterial Blood Base Excess 0 mmol/L (-3-3) FiO2 28 Test 02/08/17 17:43 02/08/17 20:25 02/08/17 20:27 02/09/17 05:45 Glucose (Fingerstick) 293 mg/dL (70-99) 317 mg/dL (70-99) Hemoglobin 6.0 g/dL (12.0-15.5) 5.6 g/dL (12.0-15.5) Hematocrit 18.3 % (36.0-47.0) 17.1 % (36.0-47.0) Prothrombin Time 27.1 SEC (11.7-14.0) Prothromb Time International Ratio 2.7 (0.8-1.1) White Blood Count 12.9 x10^3/uL (4.0-11.0) Red Blood Count 1.92 x10^6/uL (3.50-5.40) Mean Corpuscular Volume 89 fL (79-100) Mean Corpuscular Hemoglobin 29 pg (25-35) Mean Corpuscular Hemoglobin Concent 33 g/dL (31-37) Red Cell Distribution Width 15.5 % (11.5-14.5) Platelet Count 255 x10^3/uL (140-400) Test 02/09/17 07:00 02/09/17 07:57 Prothrombin Time 36.4 SEC (11.7-14.0) Prothromb Time International Ratio 4.0 (0.8-1.1) Glucose (Fingerstick) 316 mg/dL (70-99) Micro reviewed BC coag neg staph, contaminant 1/6 bottles GI scan Impression: There is no scintigraphic evidence of active GI bleeding. Objective Assessment ASSESSMENT/PLAN Assessment/Plan Pt is a 76yo CF admitted for sepsis and respiratory failure GI bleed,gi scan neg for bleed Anemia from gi bleed coagulopathy on coumadin Acute on chronic respiratory failure- likely multifactorial. improving Sepsis- likely multifactorial. improving Pulm infiltrates congestion Blood culture + coag neg staph 1/6bottles, possible contaminant- see above COPD- pt continued on breathing treatments. Pt is receiving IV steroids Acute on chronic diastolic congestive heart failure- Cardiology following. Pulmonary HTN Atrial fibrillation Obstructive sleep apnea. Aortic stenosis. HTN Type 2 diabetes Hypothyroidism Generalized anxiety disorder Severe protein-calorie malnutrition HLD Plan Plan of Care continue vanc DC Levaquin will dc vanc soon monitor lt knee closely continue supportive care BRITTANIE HERNANDEZ MD Feb 09, 2017 08:19
[2017-02-09] MEDS: IPRATRPIUM/ALBUTEROL 0.5/2.5MG 3 ML NEBU. NEB SCH ×4 (08:26→19:23)
[2017-02-09] MEDS: CITALOPRAM 20 MG TABLET. PO SCH (09:00)
--- NOTE | 2017-02-09 09:18 | PDOC ---
Subjective: Subjective: Feels "dry." Objective: Objective: D/w RN - passes black liquid stool each time she coughs, very sleepy. Received vit K this a.m., has received 4 units of blood w/ a 5th ordered, has received 2 units FFP w/ a 3rd ordered. Vital Signs: Vital Signs Date Time Temp Pulse Resp B/P (MAP) Pulse Ox O2 Delivery O2 Flow Rate FiO2 02/09/17 08:28 97 Nasal Cannula 2.0 02/09/17 08:00 97.6 106 17 108/51 97.6 Labs: Laboratory Tests Test 02/08/17 10:45 02/08/17 12:00 02/08/17 12:18 02/08/17 17:43 White Blood Count 14.4 x10^3/uL Red Blood Count 2.03 x10^6/uL Hemoglobin 5.7 g/dL Hematocrit 18.2 % Mean Corpuscular Volume 90 fL Mean Corpuscular Hemoglobin 28 pg Mean Corpuscular Hemoglobin Concent 31 g/dL Red Cell Distribution Width 17.1 % Platelet Count 483 x10^3/uL Sodium Level 139 mmol/L Potassium Level 5.7 mmol/L Chloride Level 102 mmol/L Carbon Dioxide Level 29 mmol/L Anion Gap 8 Blood Urea Nitrogen 64 mg/dL Creatinine 1.0 mg/dL Estimated GFR (Cockcroft-Gault) 53.6 Glucose Level 314 mg/dL Calcium Level 8.7 mg/dL O2 Saturation 97 % Arterial Blood pH 7.36 Arterial Blood pCO2 at Patient Temp 46 mmHg Arterial Blood pO2 at Patient Temp 101 mmHg Arterial Blood HCO3 26 mmol/L Arterial Blood Base Excess 0 mmol/L FiO2 28 Glucose (Fingerstick) 306 mg/dL 293 mg/dL Test 02/08/17 20:25 02/08/17 20:27 02/09/17 05:45 02/09/17 07:00 Hemoglobin 6.0 g/dL 5.6 g/dL Hematocrit 18.3 % 17.1 % Prothrombin Time 27.1 SEC 36.4 SEC Prothromb Time International Ratio 2.7 4.0 Glucose (Fingerstick) 317 mg/dL White Blood Count 12.9 x10^3/uL Red Blood Count 1.92 x10^6/uL Mean Corpuscular Volume 89 fL Mean Corpuscular Hemoglobin 29 pg Mean Corpuscular Hemoglobin Concent 33 g/dL Red Cell Distribution Width 15.5 % Platelet Count 255 x10^3/uL Test 02/09/17 07:57 Glucose (Fingerstick) 316 mg/dL Imaging: Bleeding Scan 02/08/17 Impression: There is no scintigraphic evidence of active GI bleeding. PE: GEN: looks ill LUNGS: diminished, nasal cannula HEART: irregularly irregular ABD: soft, non-tender NEURO/PSYCH: drowsy A/P: Melena, anemia, coagulopathy -EGD in 04/2016 w/ Schatzki's ring, colonoscopy 2008 w/ polyps, diverticulosis, hemorrhoids -A Fib and recent knee surgery, last Coumadin dose 02/07 -INR 4 this morning, received vit K; Hgb 5.6, requiring ongoing transfusions Resp failure, CHF Contrast allergy -- D/w Dr. Bhatti earlier - will ask IR to follow. Suspect will need more transfusions, continue PPI drip. Other per Dr. Mark. ARBEN PEREZ Feb 09, 2017 09:18
--- NOTE | 2017-02-09 10:45 | PDOC ---
Provider Note Provider Note IR NOTE Asked to see patient in regards to GI bleed. Source unknown, Tagged red cell scan negative. Some minimal nonspecific activity in presumed region of small bowel. Patient poor candidate for endoscopy, per discussion with GI. INR now 4 Vitamin K, FFP given/ordered. Has had 4 units of blood and 2 FFP. Last Hb 5.6 Also noted to have contrast allergy. When asked the patient reports throat swelling, and difficulty breathing requiring some kind of intervention. Recommend continued resuscitation and reversal of coagulopathy. If once coagulopathy reversed, bleeding does not stop, would ideally get CTA, as the site of bleeding remains unknown. Would need premedication at a minimum and possible presence of anesthesiology to ensure airway protection given nature of prior contrast reaction. ANNA BETANCOURT MD Feb 09, 2017 10:45
[2017-02-09] MEDS: PHENOL ORAL SPRAY 177ML BOTTLE. PO PRN ×2 (10:59→13:40)
--- NOTE | 2017-02-09 11:17 | PDOC ---
PROGRESS NOTES Subjective Subjective Continues to have ongoing GI bleeding. Hemoglobin has not changed despite 4 units of packed red blood cells and 1 unit of FFP. INR still 2.7. Additional unit of packed red cells and FFP will be ordered. Patient alert and denies abdominal pain. Bleeding scan negative per reading but per nursing report a small bowel bleed was verbally reported by interventional radiology. Patient continues to be short of breath off BiPAP Objective Objective Vital Signs Date Time Temp Pulse Resp B/P (MAP) Pulse Ox O2 Delivery O2 Flow Rate FiO2 02/09/17 10:00 97.6 114 16 114/57 (76) 94 Nasal Cannula 2.0 97.6 Intake and Output 02/09/17 07:00 Intake Total 3819 ml Output Total 1950 ml Balance 1869 ml Intake Oral 100 ml IV Total 1267 ml Blood Product 1175 ml Blood Product IV Normal Saline Flush 1277 ml Output Urine Total 1950 ml # Voids 2 # Bowel Movements 2 Physical Exam Abdomen: Normal bowel sounds Heart: Other (irregularly irregular) General: Alert Lungs: Other (coarse breath sounds with mucus plugging in the left lower base) Assessment Assessment Problems Medical Problems: (1) Acute on chronic congestive heart failure Status: Acute (2) COPD (chronic obstructive pulmonary disease) Status: Acute (3) Healthcare-associated pneumonia Status: Acute (4) Morbid obesity Status: Acute (5) Sepsis Status: Acute (6) Severe protein-calorie malnutrition Status: Acute (7) Urinary tract infection Status: Acute 1. Acute on chronic respiratory failure. 2. Anemia due to GI bleed 3. Healthcare acquired pneumonia. 4. Sepsis syndrome 5. Chronic obstructive pulmonary disease with exacerbation. 6. Atrial fibrillation with rapid ventricular response. 7. Obstructive sleep apnea. 8. Aortic stenosis. 9. Morbid obesity. 10.Hypertension. 11.Type 2 diabetes. 12.Hypothyroidism. 13.Generalized anxiety disorder. 14.Severe protein-calorie malnutrition. 15.Urinary tract infection. 16. History of diastolic congestive heart failure possibly due to cor pulmonale 17.Status post recent left total knee revision 18.coagulopathy on coumadin 19.Blood culture + coag neg staph 1/6bottles, possible contaminant- see above 20.Pulmonary HTN Plan Plan of Care Continue to treat GI bleed with transfusions await further GI recommendations Treat coagulopathy with FFP and vitamin K Continue supportive care for pneumonia and COPD Monitor for CHF Comment Review of Relevant I have reviewed the following items donald (where applicable) has been applied. Labs Laboratory Tests Test 02/07/17 12:01 02/07/17 12:10 02/07/17 17:26 02/07/17 21:31 Glucose (Fingerstick) 209 mg/dL (70-99) 221 mg/dL (70-99) 284 mg/dL (70-99) O2 Saturation 93 % (92-99) Arterial Blood pH 7.33 (7.35-7.45) Arterial Blood pCO2 at Patient Temp 60 mmHg (35-46) Arterial Blood pO2 at Patient Temp 73 mmHg (65-108) Arterial Blood HCO3 31 mmol/L (21-28) Arterial Blood Base Excess 4 mmol/L (-3-3) FiO2 28 Test 02/08/17 08:38 02/08/17 10:45 02/08/17 12:00 02/08/17 12:18 Glucose (Fingerstick) 305 mg/dL (70-99) 306 mg/dL (70-99) White Blood Count 14.4 x10^3/uL (4.0-11.0) Red Blood Count 2.03 x10^6/uL (3.50-5.40) Hemoglobin 5.7 g/dL (12.0-15.5) Hematocrit 18.2 % (36.0-47.0) Mean Corpuscular Volume 90 fL (79-100) Mean Corpuscular Hemoglobin 28 pg (25-35) Mean Corpuscular Hemoglobin Concent 31 g/dL (31-37) Red Cell Distribution Width 17.1 % (11.5-14.5) Platelet Count 483 x10^3/uL (140-400) Sodium Level 139 mmol/L (136-145) Potassium Level 5.7 mmol/L (3.5-5.1) Chloride Level 102 mmol/L (98-107) Carbon Dioxide Level 29 mmol/L (21-32) Anion Gap 8 (6-14) Blood Urea Nitrogen 64 mg/dL (7-20) Creatinine 1.0 mg/dL (0.6-1.0) Estimated GFR (Cockcroft-Gault) 53.6 Glucose Level 314 mg/dL (70-99) Calcium Level 8.7 mg/dL (8.5-10.1) O2 Saturation 97 % (92-99) Arterial Blood pH 7.36 (7.35-7.45) Arterial Blood pCO2 at Patient Temp 46 mmHg (35-46) Arterial Blood pO2 at Patient Temp 101 mmHg (65-108) Arterial Blood HCO3 26 mmol/L (21-28) Arterial Blood Base Excess 0 mmol/L (-3-3) FiO2 28 Test 02/08/17 17:43 02/08/17 20:25 02/08/17 20:27 02/09/17 05:45 Glucose (Fingerstick) 293 mg/dL (70-99) 317 mg/dL (70-99) Hemoglobin 6.0 g/dL (12.0-15.5) 5.6 g/dL (12.0-15.5) Hematocrit 18.3 % (36.0-47.0) 17.1 % (36.0-47.0) Prothrombin Time 27.1 SEC (11.7-14.0) Prothromb Time International Ratio 2.7 (0.8-1.1) White Blood Count 12.9 x10^3/uL (4.0-11.0) Red Blood Count 1.92 x10^6/uL (3.50-5.40) Mean Corpuscular Volume 89 fL (79-100) Mean Corpuscular Hemoglobin 29 pg (25-35) Mean Corpuscular Hemoglobin Concent 33 g/dL (31-37) Red Cell Distribution Width 15.5 % (11.5-14.5) Platelet Count 255 x10^3/uL (140-400) Test 02/09/17 07:00 02/09/17 07:57 Prothrombin Time 36.4 SEC (11.7-14.0) Prothromb Time International Ratio 4.0 (0.8-1.1) Glucose (Fingerstick) 316 mg/dL (70-99) Laboratory Tests Test 02/08/17 12:00 02/08/17 12:18 02/08/17 17:43 02/08/17 20:25 O2 Saturation 97 % (92-99) Arterial Blood pH 7.36 (7.35-7.45) Arterial Blood pCO2 at Patient Temp 46 mmHg (35-46) Arterial Blood pO2 at Patient Temp 101 mmHg (65-108) Arterial Blood HCO3 26 mmol/L (21-28) Arterial Blood Base Excess 0 mmol/L (-3-3) FiO2 28 Glucose (Fingerstick) 306 mg/dL (70-99) 293 mg/dL (70-99) Hemoglobin 6.0 g/dL (12.0-15.5) Hematocrit 18.3 % (36.0-47.0) Prothrombin Time 27.1 SEC (11.7-14.0) Prothromb Time International Ratio 2.7 (0.8-1.1) Test 02/08/17 20:27 02/09/17 05:45 02/09/17 07:00 02/09/17 07:57 Glucose (Fingerstick) 317 mg/dL (70-99) 316 mg/dL (70-99) White Blood Count 12.9 x10^3/uL (4.0-11.0) Red Blood Count 1.92 x10^6/uL (3.50-5.40) Hemoglobin 5.6 g/dL (12.0-15.5) Hematocrit 17.1 % (36.0-47.0) Mean Corpuscular Volume 89 fL (79-100) Mean Corpuscular Hemoglobin 29 pg (25-35) Mean Corpuscular Hemoglobin Concent 33 g/dL (31-37) Red Cell Distribution Width 15.5 % (11.5-14.5) Platelet Count 255 x10^3/uL (140-400) Prothrombin Time 36.4 SEC (11.7-14.0) Prothromb Time International Ratio 4.0 (0.8-1.1) Microbiology 02/05/17 Blood Culture - Preliminary, Resulted NO GROWTH AFTER 4 DAYS 02/05/17 Urine Culture - Final, Complete 02/05/17 Urine Culture Result 1 (BISI) - Final, Complete Medications Current Medications Sodium Chloride 1,000 ml @ 620 mls/hr Q1H37M IV Last administered on 10:43; Start 02/05/17 at 09:05; Stop 02/05/17 at 12:05; Status DC Albuterol/ Ipratropium (Duoneb) 6 ml 1X ONCE NEB Last administered on 09:18; Start 02/05/17 at 09:15; Stop 02/05/17 at 09:16; Status DC Meropenem 1 gm/ Sodium Chloride 100 ml @ 200 mls/hr Q8HRS IV ; Start 02/05/17 at 14:00; Status UNV Vancomycin HCl (Vanco Per Pharmacy) 1 each PRN DAILY PRN MC SEE COMMENTS Last administered on 02/08/17 09:21; Start 02/05/17 at 11:30 Levofloxacin/ Dextrose (Levaquin Per Pharmacy) 1 each PRN DAILY PRN MC SEE COMMENTS; Start 02/05/17 at 11:30; Stop 02/09/17 at 08:20; Status DC Vancomycin HCl 2 gm/Dextrose 500 ml @ 250 mls/hr 1X ONCE IV Last administered on 02/05/17 13:20; Start 02/05/17 at 12:00; Stop 02/05/17 at 13 :59; Status DC Meropenem (Merrem) 1 gm 1X ONCE IVP Last administered on 02/05/17 11:37; Start 02/05/17 at 12:00; Stop 02/05/17 at 19:17; Status DC Levofloxacin/ Dextrose 150 ml @ 100 mls/hr 1X ONCE IV Last administered on 11:38; Start 02/05/17 at 12:00; Stop 02/05/17 at 13:29; Status DC Methylprednisolone Sodium Succinate (SOLU-Medrol 125MG VIAL) 125 mg 1X ONCE IV Last administered on 02/05/17 12:06; Start 02/05/17 at 11:45; Stop at 11:59; Status DC Ondansetron HCl (Zofran) 4 mg PRN Q8HRS PRN IV NAUSEA/VOMITING; Start at 12:00; Stop 02/06/17 at 11:59; Status DC Sodium Chloride 1,000 ml @ 75 mls/hr [id number] IV Last administered on 16:24; Start 02/05/17 at 11:46; Stop 02/06/17 at 11:19; Status DC Acetaminophen (Tylenol) 650 mg PRN Q4HRS PRN PO FEVER Last administered on 03:34; Start 02/05/17 at 12:00; Stop 02/06/17 at 11:59; Status DC Albuterol/ Ipratropium (Duoneb) 3 ml RTQID NEB Last administered on 02/06/17 09:33; Start 02/05/17 at 12:00; Stop 02/06/17 at 11:59; Status DC Dobutamine HCl 2000 mg/Dextrose 250 ml @ 4.59 mls/hr CONT IV ; Start 02/05/17 at 12:00; Stop 02/05/17 at 13:17; Status DC Dobutamine HCl/ Dextrose 250 ml @ 18.375 mls/ hr CONT PRN IV SEE I/O RECORD; Start 02/05/17 at 13:15 Meropenem (Merrem) 1 gm Q8HRS IVP Last administered on 02/05/17 21:03; Start 02/05/17 at 21:00; Stop 02/05/17 at 21:53; Status DC Levofloxacin/ Dextrose 150 ml @ 100 mls/hr Q24H IV Last administered on 20:36; Start 02/06/17 at 12:00; Stop 02/09/17 at 08:24; Status DC Vancomycin HCl 1.75 gm/Dextrose/ Sodium Chloride 500 ml @ 250 mls/hr Q18H IV Last administered on 02/07/17 19:48; Start 02/06/17 at 07:00; Stop 02/08/17 at 13:27; Status DC Vancomycin HCl 1 each 1X ONCE MC Last administered on 02/07/17 00:30; Start 02/07/17 at 00:30; Stop 02/07/17 at 00:31; Status DC Methylprednisolone Sodium Succinate (SOLU-Medrol 40MG VIAL) 40 mg Q8HRS IV Last administered on 02/09/17 05:11; Start 02/05/17 at 16:00 Enoxaparin Sodium (Lovenox 40mg Syringe) 40 mg Q24H SQ Last administered on 16:24; Start 02/05/17 at 16:00; Stop 02/05/17 at 21:19; Status DC Aspirin (Children'S Aspirin) 81 mg DAILY PO Last administered on 02/08/17 08: 41; Start 02/06/17 at 09:00 Diltiazem HCl (Cardizem 24hr ) 120 mg QHS PO Last administered on 02/06/17 20:43; Start 02/05/17 at 21:00 Ferrous Sulfate (Feosol) 325 mg BID PO Last administered on 02/08/17 08:41; Start 02/05/17 at 21:00 Acetaminophen/ Hydrocodone Bitart (Lortab 7.5/325) 2 tab PRN Q6HRS PRN PO PAIN Last administered on 02/08/17 08:50; Start 02/05/17 at 17:15 Levothyroxine Sodium (Synthroid) 137 mcg DAILYAC PO Last administered on 08:40; Start 02/06/17 at 07:30 Warfarin Sodium (Coumadin) 5 mg DAILY16 PO Last administered on 02/07/17 17: 28; Start 02/05/17 at 22:00; Stop 02/08/17 at 09:53; Status DC Citalopram Hydrobromide (CeleXA) 40 mg DAILY PO Last administered on 08:41; Start 02/06/17 at 09:00 Glimepiride (Amaryl) 4 mg BIDWMEALS PO Last administered on 02/08/17 08:40; Start 02/05/17 at 17:30 Losartan Potassium (Cozaar) 25 mg DAILY PO ; Start 02/06/17 at 09:00; Stop at 11:22; Status DC Atorvastatin Calcium (Lipitor) 80 mg QHS PO Last administered on 02/07/17 21: 29; Start 02/05/17 at 21:00 Insulin Aspart (NovoLOG) 0-12 UNITS QIDACHS SQ Last administered on 02/09/17 07:58; Start 02/05/17 at 18:00 Norepinephrine Bitartrate 250 ml @ 0 mls/hr CONT PRN IV SEE I/O RECORD; Start 02/05/17 at 19:00 Albuterol/ Ipratropium (Duoneb) 3 ml STK-MED ONCE .ROUTE ; Start 02/05/17 at 19 :16; Stop 02/05/17 at 19:17; Status DC Meropenem (Merrem) 1 gm Q8HRS IVP Last administered on 02/08/17 05:33; Start 02/06/17 at 06:00; Stop 02/08/17 at 09:00; Status DC Warfarin Sodium (Coumadin Per Physician) 1 each PRN DAILY PRN MC SEE COMMENTS; Start 02/06/17 at 07:45; Status Cancel Lactobacillus Rhamnosus (Culturelle) 1 cap BID PO Last administered on 08:41; Start 02/06/17 at 09:00 Albuterol/ Ipratropium (Duoneb) 3 ml RTQID NEB Last administered on 02/09/17 08:26; Start 02/06/17 at 16:00 Alprazolam (Xanax) 0.5 mg PRN TID PRN PO ANXIETY / AGITATION Last administered on 02/09/17 06:32; Start 02/06/17 at 17:30 Metformin HCl (Glucophage) 500 mg BIDWMEALS PO Last administered on 02/08/17 08:40; Start 02/07/17 at 12:00 Polyethylene Glycol (miraLAX PACKET) 17 gm PRN DAILY PRN PO CONSTIPATION Last administered on 02/07/17 21:29; Start 02/07/17 at 20:00 Alteplase, Recombinant (Cathflo) 2 mg 1X ONCE INT CAT Last administered on 07:32; Start 02/08/17 at 08:00; Stop 02/08/17 at 08:01; Status DC Pantoprazole Sodium 80 mg/ Sodium Chloride 100 ml @ 10 mls/hr Q10H IV Last administered on 02/09/17 01:01; Start 02/08/17 at 13:30 Vancomycin HCl 1.75 gm/Dextrose/ Sodium Chloride 500 ml @ 250 mls/hr Q18H IV Last administered on 02/08/17 22:49; Start 02/08/17 at 21:00 Digoxin (Lanoxin) 500 mcg 1X ONCE IV Last administered on 02/08/17 18:30; Start 02/08/17 at 18:15; Stop 02/08/17 at 18:26; Status DC Digoxin (Lanoxin) 250 mcg 1X ONCE IV Last administered on 02/08/17 19:56; Start 02/08/17 at 19:45; Stop 02/08/17 at 19:46; Status DC Fentanyl Citrate (Fentanyl 2ml Vial) 50 mcg PRN Q3HRS PRN IV PAIN Last administered on 02/08/17 21:09; Start 02/08/17 at 20:30 Albumin Human 500 ml @ 125 mls/hr 1X ONCE IV Last administered on 02/08/17 23:38; Start 02/08/17 at 22:00; Stop 02/09/17 at 01:59; Status DC Phytonadione 10 mg/Sodium Chloride 51 ml @ 102 mls/hr 1X ONCE IV Last administered on 02/09/17 07:24; Start 02/09/17 at 08:00; Stop 02/09/17 at 08 :29; Status DC Throat Lozenges (Chloraseptic) 1 spray PRN Q2HR PRN PO SORE THROAT Last administered on 02/09/17t 10:59; Start 02/09/17 at 08:45 Active Scripts Active Reported Ferrous Sulfate 325 Mg Tablet 1 Tab PO BID LAST DOSE GIVEN: DATE:01/08/17 TIME:9:00 a.m. Warfarin Sodium 5 Mg Tablet 1 Tab PO DAILY 30 Days LAST DOSE GIVEN: DATE:01/08/17 TIME:2:00 p.m Levothyroxine Sodium 137 Mcg Tablet 137 Mcg PO DAILYAC LAST DOSE GIVEN: DATE:01/08/17 TIME:7:30 a.m. Furosemide 40 Mg Tablet 40 Mg PO DAILY LAST DOSE GIVEN: DATE:01/07/17 TIME:9:00 a.m. Aspirin 81 Mg Tab.chew 1 Tab PO DAILY LAST DOSE GIVEN: DATE:01/08/17 TIME:9:00 a.m. Hydrocodone-Apap 7.5-325 (Hydrocodone Bit/Acetaminophen) 1 Each Tablet 1-2 Tab PO PRN Q6HRS PRN Took at 12:30 today may take anytime as needed for pain every 4 hours Amaryl (Glimepiride) 4 Mg Tablet 1 Tab PO BID LAST DOSE GIVEN: DATE:01/08/17 TIME:9:00 a.m. Potassium Chloride 20 Meq Tab.er.prt 1 Tab PO WEEKLY Meds not given this hospital admission. May resume home medications as approved by Physician. TIME: 8:30 a.m. NEXT DOSE DUE: DATE: 12-28-15 TIME: 8:30 a.m. Metolazone 5 Mg Tablet 5 Mg PO WEEKLY Meds not given this hospital admission. May resume home medications as approved by Physician. TIME: 8:30 a.m. NEXT DOSE DUE: DATE: 12-28-15 TIME: 8:30 a.m. Lexapro (Escitalopram Oxalate) 10 Mg Tablet 20 Mg PO DAILY LAST DOSE GIVEN: DATE:01/08/17 TIME:9:00 a.m. NEXT DOSE DUE: DATE: 12-28-15 TIME: 8:30 a.m. Cardizem Cd (Diltiazem Hcl) 240 Mg Cap.er.24h 120 Mg PO HS LAST DOSE GIVEN: DATE:01/07/17 TIME:9:00 p.m. NEXT DOSE DUE: DATE: 12-27-15 TIME: 9:00 p.m. Losartan Potassium 100 Mg Tablet 25 Mg PO DAILY LAST DOSE GIVEN: DATE:01/07/17 TIME:9:00 a.m. Crestor (Rosuvastatin Calcium) 40 Mg Tablet 40 Mg PO QHS LAST DOSE GIVEN: DATE:01/07/17 TIME:9:00 p.m. NEXT DOSE DUE: DATE: 12-27-15 TIME: 9:00 p.m. Vitals/I & O Vital Sign - Last 24 Hours 02/08/17 02/08/17 02/08/17 02/08/17 12:00 12:00 12:01 12:42 Temp 97.9 97.9 97.9 97.9 Pulse 138 149 Resp 28 31 B/P (MAP) 103/61 (75) 82/40 Pulse Ox 99 98 O2 Delivery Nasal Cannula Nasal Cannula Nasal Cannula O2 Flow Rate 2.0 2.0 2.0 02/08/17 02/08/17 02/08/17 02/08/17 12:57 13:00 13:57 14:00 Temp 97.8 98.0 97.8 98.0 Pulse 128 152 144 138 Resp 25 27 27 24 B/P (MAP) 109/62 109/62 (78) 109/62 111/75 (87) Pulse Ox 98 96 O2 Delivery Nasal Cannula Nasal Cannula O2 Flow Rate 2.0 2.0 02/08/17 02/08/17 02/08/17 02/08/17 14:28 14:43 15:00 15:43 Temp 98.0 98.0 98.4 98.0 98.0 98.4 Pulse 139 142 134 146 Resp 32 21 16 22 B/P (MAP) 92/53 92/53 115/81 (92) 115/81 Pulse Ox 97 O2 Delivery Nasal Cannula O2 Flow Rate 2.0 02/08/1702/08/17 02/08/17 17 16:00 16:00 16:25 16:43 Temp 98.5 98.7 98.5 98.7 Pulse 146 138 Resp 22 19 B/P (MAP) 115/88 (97) 106/73 Pulse Ox 98 95 O2 Delivery Nasal Cannula Nasal Cannula Nasal Cannula O2 Flow Rate 2.0 2.0 2.0 02/08/17 02/08/1702/08/02/08/17 17:00 17:09 17:24 18:00 Temp 98.7 98.5 98.7 98.5 Pulse 138 138 155 147 Resp 15 19 21 18 B/P (MAP) 107/64 (78) 106/73 115/88 102/75 (84) Pulse Ox 96 97 O2 Delivery Nasal Cannula Nasal Cannula O2 Flow Rate 2.0 2.0 02/08/17 02/08/171817 17 18:20 18:30 18:41 19:00 Temp 98.2 98.2 98.2 98.2 Pulse 146 146 150 150 Resp 18 17 17 B/P (MAP) 107/69 107/69 107/69 91/55 (67) Pulse Ox 96 O2 Delivery Nasal Cannula O2 Flow Rate 2.0 02/08/1702/08/17 02/08/02/08/17 19:31 19:41 19:56 20:00 Temp 98.5 98.5 98.5 98.5 Pulse 138 126 131 Resp 26 17 B/P (MAP) 83/63 118/78 123/63 (83) Pulse Ox 100 96 O2 Delivery Nasal Cannula Nasal Cannula O2 Flow Rate 2.0 2.0 02/08/1702/08/17 02/08/17 02/08/17 20:00 21:00 21:00 21:09 Pulse 141 123 Resp 18 B/P (MAP) 100/61 93/57 (69) Pulse Ox 93 100 O2 Delivery Nasal Cannula Nasal Cannula Nasal Cannula O2 Flow Rate 2.0 2.0 2.0 02/08/1702/08/17 17 17 21:16 21:39 21:39 22:00 Temp 98.1 98.1 98.1 98.1 Pulse 120 125 125 Resp 19 20 22 B/P (MAP) 118/62 118/62 118/62 (80) Pulse Ox 100 96 O2 Delivery Nasal Cannula Nasal Cannula O2 Flow Rate 2.0 2.0 02/08/17 02/08/17 02/08/17 02/09/17 22:39 23:00 23:59 00:01 Temp 98.1 98.2 98.1 98.2 Pulse 117 125 112 Resp 16 18 21 B/P (MAP) 92/58 108/48 (68) 100/55 (70) Pulse Ox 96 97 O2 Delivery Nasal Cannula Nasal Cannula Nasal Cannula O2 Flow Rate 2.0 2.0 2.0 02/09/17 02/09/17 02/09/17 02/09/17 00:31 01:00 02:00 03:00 Temp 98.4 98.4 Pulse 112 108 105 99 Resp 15 B/P (MAP) 100/55 105/50 (68) 117/55 (75) 108/54 (72) Pulse Ox 97 99 97 O2 Delivery Nasal Cannula Nasal Cannula Nasal Cannula O2 Flow Rate 2.0 2.0 2.0 02/09/17 02/09/17 02/09/17 02/09/17 04:00 04:00 05:00 05:55 Temp 98.5 98.5 Pulse 95 98 100 Resp 14 24 27 B/P (MAP) 107/62 (77) 113/74 (87) 102/56 (71) Pulse Ox 98 95 95 O2 Delivery Nasal Cannula Nasal Cannula Nasal Cannula Nasal Cannula O2 Flow Rate 2.0 2.0 2.0 2.0 02/09/17 02/09/17 02/09/17 02/09/17 07:00 07:45 08:00 08:00 Temp 98.7 97.6 98.7 97.6 Pulse 120 98 106 Resp 17 B/P (MAP) 83/63 (70) 95/54 108/51 (70) Pulse Ox 93 95 O2 Delivery Nasal Cannula Nasal Cannula Nasal Cannula O2 Flow Rate 2.0 2.0 2.0 02/09/17 02/09/17 02/09/17 02/09/17 08:00 08:28 09:00 09:00 Temp 97.6 98.0 98.0 97.6 98.0 98.0 Pulse 106 102 102 Resp 17 22 22 B/P (MAP) 108/51 119/66 119/66 (83) Pulse Ox 97 93 O2 Delivery Nasal Cannula Nasal Cannula O2 Flow Rate 2.0 2.0 02/09/17 02/09/17 02/09/17 09:30 09:45 10:00 Temp 98.0 97.6 97.6 98.0 97.6 97.6 Pulse 102 114 114 Resp 22 16 16 B/P (MAP) 119/66 114/57 114/57 (76) Pulse Ox 94 O2 Delivery Nasal Cannula O2 Flow Rate 2.0 Intake and Output 02/08/17 02/08/17 02/09/17 15:00 23:00 07:00 Intake Total 390 ml 1682 ml 1747 ml Output Total 1950 ml Balance 390 ml 1682 ml -203 ml JUAN COOK MD Feb 09, 2017 11:17
--- NOTE | 2017-02-09 12:04 | PDOC ---
PULMONARY PROGRESS NOTES Subjective PT OFF BIPAP VERY TIRED Vitals Vital Signs Date Time Temp Pulse Resp B/P (MAP) Pulse Ox O2 Delivery O2 Flow Rate FiO2 02/09/17 11:46 97 Nasal Cannula 2.0 02/09/17 10:00 97.6 114 16 114/57 (76) 97.6 ROS: No Nausea, No Chest Pain, No Abdominal Pain, No Increase Cough General: Alert, No acute distress Lungs: Clear Cardiovascular: S1, S2 Abdomen: Soft, Other (obese) Neuro Exam: Alert Extremities: Other (2+edema) Labs Laboratory Tests Test 02/07/17 12:01 02/07/17 12:10 02/07/17 17:26 02/07/17 21:31 Glucose (Fingerstick) 209 mg/dL (70-99) 221 mg/dL (70-99) 284 mg/dL (70-99) O2 Saturation 93 % (92-99) Arterial Blood pH 7.33 (7.35-7.45) Arterial Blood pCO2 at Patient Temp 60 mmHg (35-46) Arterial Blood pO2 at Patient Temp 73 mmHg (65-108) Arterial Blood HCO3 31 mmol/L (21-28) Arterial Blood Base Excess 4 mmol/L (-3-3) FiO2 28 Test 02/08/17 08:38 02/08/17 10:45 02/08/17 12:00 02/08/17 12:18 Glucose (Fingerstick) 305 mg/dL (70-99) 306 mg/dL (70-99) White Blood Count 14.4 x10^3/uL (4.0-11.0) Red Blood Count 2.03 x10^6/uL (3.50-5.40) Hemoglobin 5.7 g/dL (12.0-15.5) Hematocrit 18.2 % (36.0-47.0) Mean Corpuscular Volume 90 fL (79-100) Mean Corpuscular Hemoglobin 28 pg (25-35) Mean Corpuscular Hemoglobin Concent 31 g/dL (31-37) Red Cell Distribution Width 17.1 % (11.5-14.5) Platelet Count 483 x10^3/uL (140-400) Sodium Level 139 mmol/L (136-145) Potassium Level 5.7 mmol/L (3.5-5.1) Chloride Level 102 mmol/L (98-107) Carbon Dioxide Level 29 mmol/L (21-32) Anion Gap 8 (6-14) Blood Urea Nitrogen 64 mg/dL (7-20) Creatinine 1.0 mg/dL (0.6-1.0) Estimated GFR (Cockcroft-Gault) 53.6 Glucose Level 314 mg/dL (70-99) Calcium Level 8.7 mg/dL (8.5-10.1) O2 Saturation 97 % (92-99) Arterial Blood pH 7.36 (7.35-7.45) Arterial Blood pCO2 at Patient Temp 46 mmHg (35-46) Arterial Blood pO2 at Patient Temp 101 mmHg (65-108) Arterial Blood HCO3 26 mmol/L (21-28) Arterial Blood Base Excess 0 mmol/L (-3-3) FiO2 28 Test 02/08/17 17:43 02/08/17 20:25 02/08/17 20:27 02/09/17 05:45 Glucose (Fingerstick) 293 mg/dL (70-99) 317 mg/dL (70-99) Hemoglobin 6.0 g/dL (12.0-15.5) 5.6 g/dL (12.0-15.5) Hematocrit 18.3 % (36.0-47.0) 17.1 % (36.0-47.0) Prothrombin Time 27.1 SEC (11.7-14.0) Prothromb Time International Ratio 2.7 (0.8-1.1) White Blood Count 12.9 x10^3/uL (4.0-11.0) Red Blood Count 1.92 x10^6/uL (3.50-5.40) Mean Corpuscular Volume 89 fL (79-100) Mean Corpuscular Hemoglobin 29 pg (25-35) Mean Corpuscular Hemoglobin Concent 33 g/dL (31-37) Red Cell Distribution Width 15.5 % (11.5-14.5) Platelet Count 255 x10^3/uL (140-400) Test 02/09/17 07:00 02/09/17 07:57 Prothrombin Time 36.4 SEC (11.7-14.0) Prothromb Time International Ratio 4.0 (0.8-1.1) Glucose (Fingerstick) 316 mg/dL (70-99) Laboratory Tests Test 02/08/17 12:00 02/08/17 12:18 02/08/17 17:43 02/08/17 20:25 O2 Saturation 97 % (92-99) Arterial Blood pH 7.36 (7.35-7.45) Arterial Blood pCO2 at Patient Temp 46 mmHg (35-46) Arterial Blood pO2 at Patient Temp 101 mmHg (65-108) Arterial Blood HCO3 26 mmol/L (21-28) Arterial Blood Base Excess 0 mmol/L (-3-3) FiO2 28 Glucose (Fingerstick) 306 mg/dL (70-99) 293 mg/dL (70-99) Hemoglobin 6.0 g/dL (12.0-15.5) Hematocrit 18.3 % (36.0-47.0) Prothrombin Time 27.1 SEC (11.7-14.0) Prothromb Time International Ratio 2.7 (0.8-1.1) Test 02/08/17 20:27 02/09/17 05:45 02/09/17 07:00 02/09/17 07:57 Glucose (Fingerstick) 317 mg/dL (70-99) 316 mg/dL (70-99) White Blood Count 12.9 x10^3/uL (4.0-11.0) Red Blood Count 1.92 x10^6/uL (3.50-5.40) Hemoglobin 5.6 g/dL (12.0-15.5) Hematocrit 17.1 % (36.0-47.0) Mean Corpuscular Volume 89 fL (79-100) Mean Corpuscular Hemoglobin 29 pg (25-35) Mean Corpuscular Hemoglobin Concent 33 g/dL (31-37) Red Cell Distribution Width 15.5 % (11.5-14.5) Platelet Count 255 x10^3/uL (140-400) Prothrombin Time 36.4 SEC (11.7-14.0) Prothromb Time International Ratio 4.0 (0.8-1.1) Medications Active Scripts Medications Dose Route/Sig Max Daily Dose Days Date Category Dose Instructions Ferrous Sulfate 325 Mg Tablet 1 Tab PO BID 01/08/17 Reported LAST DOSE GIVEN: DATE:01/08/17 TIME:9:00 a.m. Warfarin Sodium 5 Mg Tablet 1 Tab PO DAILY 30 01/08/17 Reported LAST DOSE GIVEN: DATE:01/08/17 TIME:2:00 p.m Levothyroxine Sodium 137 Mcg Tablet 137 Mcg PO DAILYAC 01/04/17 Reported LAST DOSE GIVEN: DATE:01/08/17 TIME:7:30 a.m. Furosemide 40 Mg Tablet 40 Mg PO DAILY 01/04/17 Reported LAST DOSE GIVEN: DATE:01/07/17 TIME:9:00 a.m. Aspirin 81 Mg Tab.chew 1 Tab PO DAILY 11/16/16 Reported LAST DOSE GIVEN: DATE:01/08/17 TIME:9:00 a.m. Hydrocodone-Apap 7.5-325 (Hydrocodone Bit/Acetaminophen) 1 Each Tablet 1-2 Tab PO PRN Q6HRS PRN 12/26/15 Reported Took at 12:30 today may take anytime as needed for pain every 4 hours Amaryl (Glimepiride) 4 Mg Tablet 1 Tab PO BID 12/16/15 Reported LAST DOSE GIVEN: DATE:01/08/17 TIME:9:00 a.m. Potassium Chloride 20 Meq Tab.er.prt 1 Tab PO WEEKLY 04/17/15 Reported Meds not given this hospital admission. May resume home medications as approved by Physician. TIME: 8:30 a.m. NEXT DOSE DUE: DATE: 12-28-15 TIME: 8:30 a.m. Metolazone 5 Mg Tablet 5 Mg PO WEEKLY 04/16/15 Reported Meds not given this hospital admission. May resume home medications as approved by Physician. TIME: 8:30 a.m. NEXT DOSE DUE: DATE: 12-28-15 TIME: 8:30 a.m. Lexapro (Escitalopram Oxalate) 10 Mg Tablet 20 Mg PO DAILY 05/01/13 Reported LAST DOSE GIVEN: DATE:01/08/17 TIME:9:00 a.m. NEXT DOSE DUE: DATE: 12-28-15 TIME: 8:30 a.m. Cardizem Cd (Diltiazem Hcl) 240 Mg Cap.er.24h 120 Mg PO HS 05/01/13 Reported LAST DOSE GIVEN: DATE:01/07/17 TIME:9:00 p.m. NEXT DOSE DUE: DATE: 12-27-15 TIME: 9:00 p.m. Losartan Potassium 100 Mg Tablet 25 Mg PO DAILY 05/01/13 Reported LAST DOSE GIVEN: DATE:01/07/17 TIME:9:00 a.m. Crestor (Rosuvastatin Calcium) 40 Mg Tablet 40 Mg PO QHS 05/01/13 Reported LAST DOSE GIVEN: DATE:01/07/17 TIME:9:00 p.m. NEXT DOSE DUE: DATE: 12-27-15 TIME: 9:00 p.m. Impression . 1. Acute on chronic hypercapnic respiratory failure multifactorial 2. Sepsis per ID 3. JAYLIN 4. COPD 5. Moderate to severe protein-calorie malnutrition. 6. Abnormal chest x-ray 7. Acute Blood loss anemia 8. Coagulopathy 9. Morbid Obesity Plan . 1. PRN BiPAP. 2. FFP 3. ANTIBX PER ID 4. IV FLUIDS 5. FOLLOW IR RECOMMENDATION 6. ECHO REPORT NOTED FROM LAST TIME 7. DIET PER GI CCT 30 MINUTES HARLEEN MENDOZA MD Feb 09, 2017 12:04
[2017-02-09 13:12] LABS: HEMATOCRIT 22.3 % (36.0-47.0); HEMOGLOBIN 7.3 g/dL (12.0-15.5); RED BLOOD COUNT 2.49 x10^6/uL (3.50-5.40); RED CELL DISTRIBUTION WIDTH 15.2 % (11.5-14.5); WHITE BLOOD COUNT 16.1 x10^3/uL (4.0-11.0)
[2017-02-09 13:21] LABS: INR 1.9 (0.8-1.1); PROTHROMBIN TIME PATIENT 20.8 SEC (11.7-14.0)
[2017-02-09] MEDS: VANCOMYCIN PER PHARMACY MC PRN (14:10)
[2017-02-09] MEDS: VANCOMYCIN 1.75 GM in IV DEXTROSE 5 %-0.45 % NACL 500 ML IV SCH (15:34)
[2017-02-09 18:07] LABS: HEMATOCRIT 21.5 % (36.0-47.0); RED BLOOD COUNT 2.39 x10^6/uL (3.50-5.40); RED CELL DISTRIBUTION WIDTH 15.6 % (11.5-14.5); WHITE BLOOD COUNT 17.8 x10^3/uL (4.0-11.0)
[2017-02-09 18:20] LABS: INR 1.6 (0.8-1.1); PROTHROMBIN TIME PATIENT 18.4 SEC (11.7-14.0)
--- NOTE | 2017-02-09 18:36 | PDOC ---
PROGRESS NOTES Subjective Subjective And complaints of being very thirsty. Her hemoglobin has been dropping and requiring transfusion. Prolonged INR. Objective Objective Vital Signs Date Time Temp Pulse Resp B/P (MAP) Pulse Ox O2 Delivery O2 Flow Rate FiO2 02/09/17 18:00 104 16 119/64 (82) 93 Nasal Cannula 2.0 02/09/17 16:00 98.2 98.2 Intake and Output 02/09/17 07:00 Intake Total 3819 ml Output Total 1950 ml Balance 1869 ml Intake Oral 100 ml IV Total 1267 ml Blood Product 1175 ml Blood Product IV Normal Saline Flush 1277 ml Output Urine Total 1950 ml # Voids 2 # Bowel Movements 2 Physical Exam Physical Exam Moving air better. Coarse breath sounds. Heart sounds unchanged No changes in edema Assessment Assessment Patient bleeding possibly in the GI tract. I agreed that we need to reverse her coagulopathy. Agree with FFP some further transfusions. Problems Medical Problems: (1) Acute on chronic congestive heart failure Status: Acute (2) COPD (chronic obstructive pulmonary disease) Status: Acute (3) Healthcare-associated pneumonia Status: Acute (4) Morbid obesity Status: Acute (5) Sepsis Status: Acute (6) Severe protein-calorie malnutrition Status: Acute (7) Urinary tract infection Status: Acute Comment Review of Relevant I have reviewed the following items donald (where applicable) has been applied. Labs Laboratory Tests Test 02/07/17 21:31 02/08/17 08:38 02/08/17 10:45 02/08/17 12:00 Glucose (Fingerstick) 284 mg/dL (70-99) 305 mg/dL (70-99) White Blood Count 14.4 x10^3/uL (4.0-11.0) Red Blood Count 2.03 x10^6/uL (3.50-5.40) Hemoglobin 5.7 g/dL (12.0-15.5) Hematocrit 18.2 % (36.0-47.0) Mean Corpuscular Volume 90 fL (79-100) Mean Corpuscular Hemoglobin 28 pg (25-35) Mean Corpuscular Hemoglobin Concent 31 g/dL (31-37) Red Cell Distribution Width 17.1 % (11.5-14.5) Platelet Count 483 x10^3/uL (140-400) Sodium Level 139 mmol/L (136-145) Potassium Level 5.7 mmol/L (3.5-5.1) Chloride Level 102 mmol/L (98-107) Carbon Dioxide Level 29 mmol/L (21-32) Anion Gap 8 (6-14) Blood Urea Nitrogen 64 mg/dL (7-20) Creatinine 1.0 mg/dL (0.6-1.0) Estimated GFR (Cockcroft-Gault) 53.6 Glucose Level 314 mg/dL (70-99) Calcium Level 8.7 mg/dL (8.5-10.1) O2 Saturation 97 % (92-99) Arterial Blood pH 7.36 (7.35-7.45) Arterial Blood pCO2 at Patient Temp 46 mmHg (35-46) Arterial Blood pO2 at Patient Temp 101 mmHg (65-108) Arterial Blood HCO3 26 mmol/L (21-28) Arterial Blood Base Excess 0 mmol/L (-3-3) FiO2 28 Test 02/08/17 12:18 02/08/17 17:43 02/08/17 20:25 02/08/17 20:27 Glucose (Fingerstick) 306 mg/dL (70-99) 293 mg/dL (70-99) 317 mg/dL (70-99) Hemoglobin 6.0 g/dL (12.0-15.5) Hematocrit 18.3 % (36.0-47.0) Prothrombin Time 27.1 SEC (11.7-14.0) Prothromb Time International Ratio 2.7 (0.8-1.1) Test 02/09/17 05:45 02/09/17 07:00 02/09/17 07:57 02/09/17 12:50 White Blood Count 12.9 x10^3/uL (4.0-11.0) Red Blood Count 1.92 x10^6/uL (3.50-5.40) Hemoglobin 5.6 g/dL (12.0-15.5) Hematocrit 17.1 % (36.0-47.0) Mean Corpuscular Volume 89 fL (79-100) Mean Corpuscular Hemoglobin 29 pg (25-35) Mean Corpuscular Hemoglobin Concent 33 g/dL (31-37) Red Cell Distribution Width 15.5 % (11.5-14.5) Platelet Count 255 x10^3/uL (140-400) Prothrombin Time 36.4 SEC (11.7-14.0) Prothromb Time International Ratio 4.0 (0.8-1.1) Glucose (Fingerstick) 316 mg/dL (70-99) 297 mg/dL (70-99) Test 02/09/17 13:00 02/09/17 17:55 White Blood Count 16.1 x10^3/uL (4.0-11.0) 17.8 x10^3/uL (4.0-11.0) Red Blood Count 2.49 x10^6/uL (3.50-5.40) 2.39 x10^6/uL (3.50-5.40) Hemoglobin 7.3 g/dL (12.0-15.5) 7.0 g/dL (12.0-15.5) Hematocrit 22.3 % (36.0-47.0) 21.5 % (36.0-47.0) Mean Corpuscular Volume 90 fL (79-100) 90 fL (79-100) Mean Corpuscular Hemoglobin 30 pg (25-35) 29 pg (25-35) Mean Corpuscular Hemoglobin Concent 33 g/dL (31-37) 33 g/dL (31-37) Red Cell Distribution Width 15.2 % (11.5-14.5) 15.6 % (11.5-14.5) Platelet Count 259 x10^3/uL (140-400) 255 x10^3/uL (140-400) Prothrombin Time 20.8 SEC (11.7-14.0) 18.4 SEC (11.7-14.0) Prothromb Time International Ratio 1.9 (0.8-1.1) 1.6 (0.8-1.1) Laboratory Tests Test 02/08/17 20:25 02/08/17 20:27 02/09/17 05:45 02/09/17 07:00 Hemoglobin 6.0 g/dL (12.0-15.5) 5.6 g/dL (12.0-15.5) Hematocrit 18.3 % (36.0-47.0) 17.1 % (36.0-47.0) Prothrombin Time 27.1 SEC (11.7-14.0) 36.4 SEC (11.7-14.0) Prothromb Time International Ratio 2.7 (0.8-1.1) 4.0 (0.8-1.1) Glucose (Fingerstick) 317 mg/dL (70-99) White Blood Count 12.9 x10^3/uL (4.0-11.0) Red Blood Count 1.92 x10^6/uL (3.50-5.40) Mean Corpuscular Volume 89 fL (79-100) Mean Corpuscular Hemoglobin 29 pg (25-35) Mean Corpuscular Hemoglobin Concent 33 g/dL (31-37) Red Cell Distribution Width 15.5 % (11.5-14.5) Platelet Count 255 x10^3/uL (140-400) Test 02/09/17 07:57 02/09/17 12:50 02/09/17 13:00 02/09/17 17:55 Glucose (Fingerstick) 316 mg/dL (70-99) 297 mg/dL (70-99) White Blood Count 16.1 x10^3/uL (4.0-11.0) 17.8 x10^3/uL (4.0-11.0) Red Blood Count 2.49 x10^6/uL (3.50-5.40) 2.39 x10^6/uL (3.50-5.40) Hemoglobin 7.3 g/dL (12.0-15.5) 7.0 g/dL (12.0-15.5) Hematocrit 22.3 % (36.0-47.0) 21.5 % (36.0-47.0) Mean Corpuscular Volume 90 fL (79-100) 90 fL (79-100) Mean Corpuscular Hemoglobin 30 pg (25-35) 29 pg (25-35) Mean Corpuscular Hemoglobin Concent 33 g/dL (31-37) 33 g/dL (31-37) Red Cell Distribution Width 15.2 % (11.5-14.5) 15.6 % (11.5-14.5) Platelet Count 259 x10^3/uL (140-400) 255 x10^3/uL (140-400) Prothrombin Time 20.8 SEC (11.7-14.0) 18.4 SEC (11.7-14.0) Prothromb Time International Ratio 1.9 (0.8-1.1) 1.6 (0.8-1.1) Microbiology 02/05/17 Blood Culture - Preliminary, Resulted NO GROWTH AFTER 4 DAYS 02/05/17 Urine Culture - Final, Complete 02/05/17 Urine Culture Result 1 (BISI) - Final, Complete Medications Current Medications Sodium Chloride 1,000 ml @ 620 mls/hr Q1H37M IV Last administered on 10:43; Start 02/05/17 at 09:05; Stop 02/05/17 at 12:05; Status DC Albuterol/ Ipratropium (Duoneb) 6 ml 1X ONCE NEB Last administered on 09:18; Start 02/05/17 at 09:15; Stop 02/05/17 at 09:16; Status DC Meropenem 1 gm/ Sodium Chloride 100 ml @ 200 mls/hr Q8HRS IV ; Start 02/05/17 at 14:00; Status UNV Vancomycin HCl (Vanco Per Pharmacy) 1 each PRN DAILY PRN MC SEE COMMENTS Last administered on 02/09/17 14:10; Start 02/05/17 at 11:30 Levofloxacin/ Dextrose (Levaquin Per Pharmacy) 1 each PRN DAILY PRN MC SEE COMMENTS; Start 02/05/17 at 11:30; Stop 02/09/17 at 08:20; Status DC Vancomycin HCl 2 gm/Dextrose 500 ml @ 250 mls/hr 1X ONCE IV Last administered on 02/05/17 13:20; Start 02/05/17 at 12:00; Stop 02/05/17 at 13 :59; Status DC Meropenem (Merrem) 1 gm 1X ONCE IVP Last administered on 02/05/17 11:37; Start 02/05/17 at 12:00; Stop 02/05/17 at 19:17; Status DC Levofloxacin/ Dextrose 150 ml @ 100 mls/hr 1X ONCE IV Last administered on 11:38; Start 02/05/17 at 12:00; Stop 02/05/17 at 13:29; Status DC Methylprednisolone Sodium Succinate (SOLU-Medrol 125MG VIAL) 125 mg 1X ONCE IV Last administered on 02/05/17 12:06; Start 02/05/17 at 11:45; Stop at 11:59; Status DC Ondansetron HCl (Zofran) 4 mg PRN Q8HRS PRN IV NAUSEA/VOMITING; Start at 12:00; Stop 02/06/17 at 11:59; Status DC Sodium Chloride 1,000 ml @ 75 mls/hr [id number] IV Last administered on 16:24; Start 02/05/17 at 11:46; Stop 02/06/17 at 11:19; Status DC Acetaminophen (Tylenol) 650 mg PRN Q4HRS PRN PO FEVER Last administered on 03:34; Start 02/05/17 at 12:00; Stop 02/06/17 at 11:59; Status DC Albuterol/ Ipratropium (Duoneb) 3 ml RTQID NEB Last administered on 02/06/17 09:33; Start 02/05/17 at 12:00; Stop 02/06/17 at 11:59; Status DC Dobutamine HCl 2000 mg/Dextrose 250 ml @ 4.59 mls/hr CONT IV ; Start 02/05/17 at 12:00; Stop 02/05/17 at 13:17; Status DC Dobutamine HCl/ Dextrose 250 ml @ 18.375 mls/ hr CONT PRN IV SEE I/O RECORD; Start 02/05/17 at 13:15 Meropenem (Merrem) 1 gm Q8HRS IVP Last administered on 02/05/17 21:03; Start 02/05/17 at 21:00; Stop 02/05/17 at 21:53; Status DC Levofloxacin/ Dextrose 150 ml @ 100 mls/hr Q24H IV Last administered on 20:36; Start 02/06/17 at 12:00; Stop 02/09/17 at 08:24; Status DC Vancomycin HCl 1.75 gm/Dextrose/ Sodium Chloride 500 ml @ 250 mls/hr Q18H IV Last administered on 02/07/17 19:48; Start 02/06/17 at 07:00; Stop 02/08/17 at 13:27; Status DC Vancomycin HCl 1 each 1X ONCE MC Last administered on 02/07/17 00:30; Start 02/07/17 at 00:30; Stop 02/07/17 at 00:31; Status DC Methylprednisolone Sodium Succinate (SOLU-Medrol 40MG VIAL) 40 mg Q8HRS IV Last administered on 02/09/17 14:05; Start 02/05/17 at 16:00 Enoxaparin Sodium (Lovenox 40mg Syringe) 40 mg Q24H SQ Last administered on 16:24; Start 02/05/17 at 16:00; Stop 02/05/17 at 21:19; Status DC Aspirin (Children'S Aspirin) 81 mg DAILY PO Last administered on 02/08/17 08: 41; Start 02/06/17 at 09:00 Diltiazem HCl (Cardizem 24hr Cd) 120 mg QHS PO Last administered on 02/06/17 20:43; Start 02/05/17 at 21:00 Ferrous Sulfate (Feosol) 325 mg BID PO Last administered on 02/08/17 08:41; Start 02/05/17 at 21:00 Acetaminophen/ Hydrocodone Bitart (Lortab 7.5/325) 2 tab PRN Q6HRS PRN PO PAIN Last administered on 02/08/17 08:50; Start 02/05/17 at 17:15 Levothyroxine Sodium (Synthroid) 137 mcg DAILYAC PO Last administered on 08:40; Start 02/06/17 at 07:30 Warfarin Sodium (Coumadin) 5 mg DAILY16 PO Last administered on 02/07/17 17: 28; Start 02/05/17 at 22:00; Stop 02/08/17 at 09:53; Status DC Citalopram Hydrobromide (CeleXA) 40 mg DAILY PO Last administered on 08:41; Start 02/06/17 at 09:00 Glimepiride (Amaryl) 4 mg BIDWMEALS PO Last administered on 02/08/17 08:40; Start 02/05/17 at 17:30 Losartan Potassium (Cozaar) 25 mg DAILY PO ; Start 02/06/17 at 09:00; Stop 12/ 16/17 at 11:22; Status DC Atorvastatin Calcium (Lipitor) 80 mg QHS PO Last administered on 02/07/17 21: 29; Start 02/05/17 at 21:00 Insulin Aspart (NovoLOG) 0-12 UNITS QIDACHS SQ Last administered on 02/09/17 17:58; Start 02/05/17 at 18:00 Norepinephrine Bitartrate 250 ml @ 0 mls/hr CONT PRN IV SEE I/O RECORD; Start 02/05/17 at 19:00 Albuterol/ Ipratropium (Duoneb) 3 ml STK-MED ONCE .ROUTE ; Start 02/05/17 at 19 :16; Stop 02/05/17 at 19:17; Status DC Meropenem (Merrem) 1 gm Q8HRS IVP Last administered on 02/08/17 05:33; Start 02/06/17 at 06:00; Stop 02/08/17 at 09:00; Status DC Warfarin Sodium (Coumadin Per Physician) 1 each PRN DAILY PRN MC SEE COMMENTS; Start 02/06/17 at 07:45; Status Cancel Lactobacillus Rhamnosus (Culturelle) 1 cap BID PO Last administered on 08:41; Start 02/06/17 at 09:00 Albuterol/ Ipratropium (Duoneb) 3 ml RTQID NEB Last administered on 02/09/17 16:08; Start 02/06/17 at 16:00 Alprazolam (Xanax) 0.5 mg PRN TID PRN PO ANXIETY / AGITATION Last administered on 02/09/17 06:32; Start 02/06/17 at 17:30 Metformin HCl (Glucophage) 500 mg BIDWMEALS PO Last administered on 02/08/17 08:40; Start 02/07/17 at 12:00 Polyethylene Glycol (miraLAX PACKET) 17 gm PRN DAILY PRN PO CONSTIPATION Last administered on 02/07/17 21:29; Start 02/07/17 at 20:00 Alteplase, Recombinant (Cathflo) 2 mg 1X ONCE INT CAT Last administered on 07:32; Start 02/08/17 at 08:00; Stop 02/08/17 at 08:01; Status DC Pantoprazole Sodium 80 mg/ Sodium Chloride 100 ml @ 10 mls/hr Q10H IV Last administered on 02/09/17 11:54; Start 02/08/17 at 13:30 Vancomycin HCl 1.75 gm/Dextrose/ Sodium Chloride 500 ml @ 250 mls/hr Q18H IV Last administered on 02/09/17 15:34; Start 02/08/17 at 21:00 Digoxin (Lanoxin) 500 mcg 1X ONCE IV Last administered on 02/08/17 18:30; Start 02/08/17 at 18:15; Stop 02/08/17 at 18:26; Status DC Digoxin (Lanoxin) 250 mcg 1X ONCE IV Last administered on 02/08/17 19:56; Start 02/08/17 at 19:45; Stop 02/08/17 at 19:46; Status DC Fentanyl Citrate (Fentanyl 2ml Vial) 50 mcg PRN Q3HRS PRN IV PAIN Last administered on 02/08/17 21:09; Start 02/08/17 at 20:30 Albumin Human 500 ml @ 125 mls/hr 1X ONCE IV Last administered on 02/08/17 23:38; Start 02/08/17 at 22:00; Stop 02/09/17 at 01:59; Status DC Phytonadione 10 mg/Sodium Chloride 51 ml @ 102 mls/hr 1X ONCE IV Last administered on 02/09/17 07:24; Start 02/09/17 at 08:00; Stop 02/09/17 at 08 :29; Status DC Throat Lozenges (Chloraseptic) 1 spray PRN Q2HR PRN PO SORE THROAT Last administered on 02/09/17 13:40; Start 02/09/17 at 08:45 Active Scripts Active Reported Ferrous Sulfate 325 Mg Tablet 1 Tab PO BID LAST DOSE GIVEN: DATE:01/08/17 TIME:9:00 a.m. Warfarin Sodium 5 Mg Tablet 1 Tab PO DAILY 30 Days LAST DOSE GIVEN: DATE:01/08/17 TIME:2:00 p.m Levothyroxine Sodium 137 Mcg Tablet 137 Mcg PO DAILYAC LAST DOSE GIVEN: DATE:01/08/17 TIME:7:30 a.m. Furosemide 40 Mg Tablet 40 Mg PO DAILY LAST DOSE GIVEN: DATE:01/07/17 TIME:9:00 a.m. Aspirin 81 Mg Tab.chew 1 Tab PO DAILY LAST DOSE GIVEN: DATE:01/08/17 TIME:9:00 a.m. Hydrocodone-Apap 7.5-325 (Hydrocodone Bit/Acetaminophen) 1 Each Tablet 1-2 Tab PO PRN Q6HRS PRN Took at 12:30 today may take anytime as needed for pain every 4 hours Amaryl (Glimepiride) 4 Mg Tablet 1 Tab PO BID LAST DOSE GIVEN: DATE:01/08/17 TIME:9:00 a.m. Potassium Chloride 20 Meq Tab.er.prt 1 Tab PO WEEKLY Meds not given this hospital admission. May resume home medications as approved by Physician. TIME: 8:30 a.m. NEXT DOSE DUE: DATE: 12-28-15 TIME: 8:30 a.m. Metolazone 5 Mg Tablet 5 Mg PO WEEKLY Meds not given this hospital admission. May resume home medications as approved by Physician. TIME: 8:30 a.m. NEXT DOSE DUE: DATE: 12-28-15 TIME: 8:30 a.m. Lexapro (Escitalopram Oxalate) 10 Mg Tablet 20 Mg PO DAILY LAST DOSE GIVEN: DATE:01/08/17 TIME:9:00 a.m. NEXT DOSE DUE: DATE: 12-28-15 TIME: 8:30 a.m. Cardizem Cd (Diltiazem Hcl) 240 Mg Cap.er.24h 120 Mg PO HS LAST DOSE GIVEN: DATE:01/07/17 TIME:9:00 p.m. NEXT DOSE DUE: DATE: 12-27-15 TIME: 9:00 p.m. Losartan Potassium 100 Mg Tablet 25 Mg PO DAILY LAST DOSE GIVEN: DATE:01/07/17 TIME:9:00 a.m. Crestor (Rosuvastatin Calcium) 40 Mg Tablet 40 Mg PO QHS LAST DOSE GIVEN: DATE:01/07/17 TIME:9:00 p.m. NEXT DOSE DUE: DATE: 12-27-15 TIME: 9:00 p.m. Vitals/I & O Vital Sign - Last 24 Hours 02/08/17 02/08/17 02/08/17 02/08/17 18:41 19:00 19:31 19:41 Temp 98.2 98.5 98.2 98.5 Pulse 150 150 138 Resp 17 17 26 B/P (MAP) 107/69 91/55 (67) 83/63 Pulse Ox 96 100 O2 Delivery Nasal Cannula Nasal Cannula O2 Flow Rate 2.0 2.0 02/08/17 02/08/17 02/08/17 02/08/17 19:56 20:00 20:00 21:00 Temp 98.5 98.5 Pulse 126 131 141 Resp 17 B/P (MAP) 118/78 123/63 (83) 100/61 Pulse Ox 96 O2 Delivery Nasal Cannula Nasal Cannula O2 Flow Rate 2.0 2.0 02/08/17 02/08/17 02/08/17 02/08/17 21:00 21:09 21:16 21:39 Temp 98.1 98.1 98.1 98.1 Pulse 123 120 125 Resp 18 19 20 B/P (MAP) 93/57 (69) 118/62 118/62 Pulse Ox 93 100 O2 Delivery Nasal Cannula Nasal Cannula O2 Flow Rate 2.0 2.0 02/08/17 02/08/17 02/08/17 02/08/17 21:39 22:00 22:39 23:00 Temp 98.1 98.1 Pulse 125 117 125 Resp 16 18 B/P (MAP) 118/62 (80) 92/58 108/48 (68) Pulse Ox 100 96 96 O2 Delivery Nasal Cannula Nasal Cannula Nasal Cannula O2 Flow Rate 2.0 2.0 2.0 02/08/17 02/09/17 02/09/17 02/09/17 23:59 00:01 00:31 01:00 Temp 98.2 98.4 98.2 98.4 Pulse 112 112 108 Resp 22 B/P (MAP) 100/55 (70) 100/55 105/50 (68) Pulse Ox 97 97 O2 Delivery Nasal Cannula Nasal Cannula Nasal Cannula O2 Flow Rate 2.0 2.0 2.0 02/09/17 02/09/17 02/09/17 02/09/17 02:00 03:00 04:00 04:00 Temp 98.5 98.5 Pulse 105 99 95 Resp 25 15 14 B/P (MAP) 117/55 (75) 108/54 (72) 107/62 (77) Pulse Ox 99 97 98 O2 Delivery Nasal Cannula Nasal Cannula Nasal Cannula Nasal Cannula O2 Flow Rate 2.0 2.0 2.0 2.0 02/09/17 02/09/17 02/09/17 02/09/17 05:00 05:55 07:00 07:45 Temp 98.7 98.7 Pulse 98 100 120 98 Resp B/P (MAP) 113/74 (87) 102/56 (71) 83/63 (70) 95/54 Pulse Ox 95 95 93 O2 Delivery Nasal Cannula Nasal Cannula Nasal Cannula O2 Flow Rate 2.0 2.0 2.0 02/09/17 02/09/17 02/09/17 02/09/17 08:00 08:00 08:00 08:28 Temp 97.6 97.6 97.6 97.6 Pulse 106 106 Resp B/P (MAP) 108/51 (70) 108/51 Pulse Ox 95 97 O2 Delivery Nasal Cannula Nasal Cannula Nasal Cannula O2 Flow Rate 2.0 2.0 2.0 02/09/17 02/09/17 02/09/17 02/09/17 09:00 09:00 09:30 09:45 Temp 98.0 98.0 98.0 97.6 98.0 98.0 98.0 97.6 Pulse 102 102 102 114 Resp 16 B/P (MAP) 119/66 119/66 (83) 119/66 114/57 Pulse Ox 93 O2 Delivery Nasal Cannula O2 Flow Rate 2.0 02/09/17 02/09/17 02/09/17 02/09/17 10:00 10:45 11:00 11:45 Temp 97.6 97.6 97.8 97.6 97.6 97.8 Pulse 114 119 119 115 Resp B/P (MAP) 114/57 (76) 109/53 109/53 (71) 108/57 Pulse Ox 94 94 O2 Delivery Nasal Cannula Nasal Cannula O2 Flow Rate 2.0 2.0 02/09/17 02/09/17 02/09/17 02/09/17 11:46 12:00 12:00 13:00 Temp 97.8 97.8 Pulse 115 115 Resp 21 B/P (MAP) 108/57 (74) 113/48 (69) Pulse Ox 97 97 93 O2 Delivery Nasal Cannula Nasal Cannula Nasal Cannula Nasal Cannula O2 Flow Rate 2.0 2.0 2.0 2.0 02/09/17 02/09/17 02/09/17 02/09/17 14:00 15:00 16:00 16:00 Temp 98.2 98.2 Pulse 132 109 97 Resp 18 16 19 B/P (MAP) 138/94 (109) 125/47 (73) 108/62 (77) Pulse Ox 93 97 95 O2 Delivery Nasal Cannula Nasal Cannula Nasal Cannula Nasal Cannula O2 Flow Rate 2.0 2.0 2.0 2.0 02/09/17 02/09/17 02/09/17 16:10 17:00 18:00 Pulse 111 104 Resp 14 16 B/P (MAP) 124/49 (74) 119/64 (82) Pulse Ox 96 92 93 O2 Delivery Nasal Cannula Nasal Cannula Nasal Cannula O2 Flow Rate 2.0 2.0 2.0 Intake and Output 02/08/17 02/08/17 02/09/17 15:00 23:00 07:00 Intake Total 390 ml 1682 ml 1747 ml Output Total 1950 ml Balance 390 ml 1682 ml -203 ml CRYSTAL ARCHULETA MD Feb 09, 2017 18:36
[2017-02-09] MEDS: ATORVASTATIN CALCIUM 40 MG TABLET. PO SCH (20:31)
[2017-02-09 21:43] LABS: RED BLOOD COUNT 2.68 x10^6/uL (3.50-5.40); WHITE BLOOD COUNT 14.4 x10^3/uL (4.0-11.0)
[2017-02-10] VITALS (24 sets, daily range): BP systolic 93–160; BP diastolic 52–97
[2017-02-10 00:28] LABS: HEMATOCRIT 22.7 % (36.0-47.0); HEMOGLOBIN 7.6 g/dL (12.0-15.5); RED BLOOD COUNT 2.55 x10^6/uL (3.50-5.40); RED CELL DISTRIBUTION WIDTH 15.1 % (11.5-14.5); WHITE BLOOD COUNT 12.7 x10^3/uL (4.0-11.0)
[2017-02-10 00:45] LABS: INR 1.4 (0.8-1.1); PROTHROMBIN TIME PATIENT 16.4 SEC (11.7-14.0)
[2017-02-10] MEDS: methylPREDNISolone SOD SUCC PF 40 MG/ML VIAL. IV SCH ×3 (06:01→21:49)
[2017-02-10 06:07] LABS: HEMATOCRIT 24.5 % (36.0-47.0); HEMOGLOBIN 8.1 g/dL (12.0-15.5); RED BLOOD COUNT 2.74 x10^6/uL (3.50-5.40); RED CELL DISTRIBUTION WIDTH 15.5 % (11.5-14.5); WHITE BLOOD COUNT 13.4 x10^3/uL (4.0-11.0)
[2017-02-10] MEDS: PANTOPRAZOLE SODIUM IV DRIP 80 MG in IV NORMAL SALINE 100ML 100 ML IV SCH ×2 (06:27→19:41)
[2017-02-10 06:36] LABS: INR 1.2 (0.8-1.1); PROTHROMBIN TIME PATIENT 14.7 SEC (11.7-14.0)
[2017-02-10] MEDS: LEVOTHYROXINE 137 MCG TABLET PO SCH (07:30)
[2017-02-10] MEDS: metFORMIN 500 MG TABLET PO SCH ×2 (08:00→17:07)
[2017-02-10] MEDS: GLIMEPIRIDE 2 MG TABLET. PO SCH ×2 (08:00→17:07)
--- NOTE | 2017-02-10 08:03 | PDOC ---
Infectious Disease Note Subjective Subjective pt coughing ,dry, says feels ok, no n/v/abdo pain/sob Lt knee pain resolved had 3 units PRBCs yesterday ROS ROS weak, cough Vital Sign Vital Signs Vital Signs Date Time Temp Pulse Resp B/P (MAP) Pulse Ox O2 Delivery O2 Flow Rate FiO2 02/10/17 07:00 98 16 140/65 (90) 96 Nasal Cannula 2.0 02/10/17 04:00 98.1 98.1 Physical Exam PHYSICAL EXAM GEN: fatigued , alert awake HEENT: oral mucosa dry, no icterus Cardiac: irregular, tachycardia Lungs:dec bs at bases Abd: soft, non distended, nontender, no rebound , no guarding Ext: 2+ pitting edema LE bilaterally, chronic venous stasis changes RLE, erythema in left knee and LLE has completely resolved Neuro: grossly nonfocal Labs Lab Laboratory Tests Test 02/09/17 07:57 02/09/17 12:50 02/09/17 13:00 02/09/17 17:52 Glucose (Fingerstick) 316 mg/dL (70-99) 297 mg/dL (70-99) 360 mg/dL (70-99) White Blood Count 16.1 x10^3/uL (4.0-11.0) Red Blood Count 2.49 x10^6/uL (3.50-5.40) Hemoglobin 7.3 g/dL (12.0-15.5) Hematocrit 22.3 % (36.0-47.0) Mean Corpuscular Volume 90 fL (79-100) Mean Corpuscular Hemoglobin 30 pg (25-35) Mean Corpuscular Hemoglobin Concent 33 g/dL (31-37) Red Cell Distribution Width 15.2 % (11.5-14.5) Platelet Count 259 x10^3/uL (140-400) Prothrombin Time 20.8 SEC (11.7-14.0) Prothromb Time International Ratio 1.9 (0.8-1.1) Test 02/09/17 17:55 02/09/17 20:39 02/09/17 21:40 02/10/17 00:20 White Blood Count 17.8 x10^3/uL (4.0-11.0) 14.4 x10^3/uL (4.0-11.0) 12.7 x10^3/uL (4.0-11.0) Red Blood Count 2.39 x10^6/uL (3.50-5.40) 2.68 x10^6/uL (3.50-5.40) 2.55 x10^6/uL (3.50-5.40) Hemoglobin 7.0 g/dL (12.0-15.5) 8.0 g/dL (12.0-15.5) 7.6 g/dL (12.0-15.5) Hematocrit 21.5 % (36.0-47.0) 24.0 % (36.0-47.0) 22.7 % (36.0-47.0) Mean Corpuscular Volume 90 fL (79-100) 90 fL (79-100) 89 fL (79-100) Mean Corpuscular Hemoglobin 29 pg (25-35) 30 pg (25-35) 30 pg (25-35) Mean Corpuscular Hemoglobin Concent 33 g/dL (31-37) 33 g/dL (31-37) 33 g/dL (31-37) Red Cell Distribution Width 15.6 % (11.5-14.5) 15.0 % (11.5-14.5) 15.1 % (11.5-14.5) Platelet Count 255 x10^3/uL (140-400) 235 x10^3/uL (140-400) 213 x10^3/uL (140-400) Prothrombin Time 18.4 SEC (11.7-14.0) 16.4 SEC (11.7-14.0) Prothromb Time International Ratio 1.6 (0.8-1.1) 1.4 (0.8-1.1) Glucose (Fingerstick) 298 mg/dL (70-99) Test 02/10/17 05:50 White Blood Count 13.4 x10^3/uL (4.0-11.0) Red Blood Count 2.74 x10^6/uL (3.50-5.40) Hemoglobin 8.1 g/dL (12.0-15.5) Hematocrit 24.5 % (36.0-47.0) Mean Corpuscular Volume 89 fL (79-100) Mean Corpuscular Hemoglobin 30 pg (25-35) Mean Corpuscular Hemoglobin Concent 33 g/dL (31-37) Red Cell Distribution Width 15.5 % (11.5-14.5) Platelet Count 232 x10^3/uL (140-400) Prothrombin Time 14.7 SEC (11.7-14.0) Prothromb Time International Ratio 1.2 (0.8-1.1) Micro reviewed BC coag neg staph, contaminant /6 bottles GI scan Impression: There is no scintigraphic evidence of active GI bleeding. Objective Assessment Anemia from gi bleed, gi following coagulopathy on coumadin Leucocytosis likely reactive,multifactorial Acute on chronic respiratory failure- likely multifactorial. improving Sepsis- likely multifactorial. resolved Blood culture + coag neg staph ottles, possible contaminant- see above COPD Acute on chronic diastolic congestive heart failure- Pulmonary HTN Atrial fibrillation Obstructive sleep apnea. Aortic stenosis. HTN Type 2 diabetes Hypothyroidism Generalized anxiety disorder Severe protein-calorie malnutrition HLD Plan Plan of Care continue terry Nieves DC will jennifer stewart soon monitor lt knee closely continue supportive care BRITTANIE HERNANDEZ MD Feb 10, 2017 08:03
[2017-02-10] MEDS: IPRATRPIUM/ALBUTEROL 0.5/2.5MG 3 ML NEBU. NEB SCH ×4 (08:40→20:02)
[2017-02-10] MEDS: LACTOBACILLUS RHAMNOSUS GG 1 CAPSULE. PO SCH ×2 (09:00→20:27)
[2017-02-10] MEDS: FERROUS SULFATE 325 MG TABLET. PO SCH ×2 (09:00→20:27)
[2017-02-10] MEDS: CITALOPRAM 20 MG TABLET. PO SCH (09:00)
[2017-02-10] MEDS: ASPIRIN CHEWABLE 81 MG TABLET. PO SCH (09:00)
[2017-02-10] MEDS: VANCOMYCIN 1.75 GM in IV DEXTROSE 5 %-0.45 % NACL 500 ML IV SCH (09:09)
[2017-02-10] MEDS: INSULIN ASPART 300 UNITS/3 ML INSULN.PEN SQ SCH ×6 (09:32→21:42)
--- NOTE | 2017-02-10 09:54 | PDOC ---
PROGRESS NOTES Subjective Subjective Complains of being very thirsty Says she is feeling a little better today Hemoglobin improving Objective Objective Vital Signs Date Time Temp Pulse Resp B/P (MAP) Pulse Ox O2 Delivery O2 Flow Rate FiO2 02/10/17 09:00 123 16 134/61 (85) 95 Nasal Cannula 2.0 02/10/17 08:00 97.8 97.8 Intake and Output 02/10/17 07:00 Intake Total 533.06 ml Output Total 3585 ml Balance -3051.94 ml IV Total 179.06 ml Blood Product IV Normal Saline Flush 354 ml Output Urine Total 3385 ml Stool Total 200 ml # Bowel Movements 4 Physical Exam Physical Exam tachypneic, coarse breath sounds tachycardic, heart sounds unchanged no changes in edema Assessment Assessment Monitor H&H - FFP & transfuse as necessary Continue with plan to reverse coagulopathy Problems Medical Problems: (1) Acute on chronic congestive heart failure Status: Acute (2) COPD (chronic obstructive pulmonary disease) Status: Acute (3) Healthcare-associated pneumonia Status: Acute (4) Morbid obesity Status: Acute (5) Sepsis Status: Acute (6) Severe protein-calorie malnutrition Status: Acute (7) Urinary tract infection Status: Acute Comment Review of Relevant I have reviewed the following items donald (where applicable) has been applied. Labs Laboratory Tests Test 02/08/17 10:45 02/08/17 12:00 02/08/17 12:18 02/08/17 17:43 White Blood Count 14.4 x10^3/uL (4.0-11.0) Red Blood Count 2.03 x10^6/uL (3.50-5.40) Hemoglobin 5.7 g/dL (12.0-15.5) Hematocrit 18.2 % (36.0-47.0) Mean Corpuscular Volume 90 fL (79-100) Mean Corpuscular Hemoglobin 28 pg (25-35) Mean Corpuscular Hemoglobin Concent 31 g/dL (31-37) Red Cell Distribution Width 17.1 % (11.5-14.5) Platelet Count 483 x10^3/uL (140-400) Sodium Level 139 mmol/L (136-145) Potassium Level 5.7 mmol/L (3.5-5.1) Chloride Level 102 mmol/L (98-107) Carbon Dioxide Level 29 mmol/L (21-32) Anion Gap 8 (6-14) Blood Urea Nitrogen 64 mg/dL (7-20) Creatinine 1.0 mg/dL (0.6-1.0) Estimated GFR (Cockcroft-Gault) 53.6 Glucose Level 314 mg/dL (70-99) Calcium Level 8.7 mg/dL (8.5-10.1) O2 Saturation 97 % (92-99) Arterial Blood pH 7.36 (7.35-7.45) Arterial Blood pCO2 at Patient Temp 46 mmHg (35-46) Arterial Blood pO2 at Patient Temp 101 mmHg (65-108) Arterial Blood HCO3 26 mmol/L (21-28) Arterial Blood Base Excess 0 mmol/L (-3-3) FiO2 28 Glucose (Fingerstick) 306 mg/dL (70-99) 293 mg/dL (70-99) Test 02/08/17 20:25 02/08/17 20:27 02/09/17 05:45 02/09/17 07:00 Hemoglobin 6.0 g/dL (12.0-15.5) 5.6 g/dL (12.0-15.5) Hematocrit 18.3 % (36.0-47.0) 17.1 % (36.0-47.0) Prothrombin Time 27.1 SEC (11.7-14.0) 36.4 SEC (11.7-14.0) Prothromb Time International Ratio 2.7 (0.8-1.1) 4.0 (0.8-1.1) Glucose (Fingerstick) 317 mg/dL (70-99) White Blood Count 12.9 x10^3/uL (4.0-11.0) Red Blood Count 1.92 x10^6/uL (3.50-5.40) Mean Corpuscular Volume 89 fL (79-100) Mean Corpuscular Hemoglobin 29 pg (25-35) Mean Corpuscular Hemoglobin Concent 33 g/dL (31-37) Red Cell Distribution Width 15.5 % (11.5-14.5) Platelet Count 255 x10^3/uL (140-400) Test 02/09/17 07:57 02/09/17 12:50 02/09/17 13:00 02/09/17 17:52 Glucose (Fingerstick) 316 mg/dL (70-99) 297 mg/dL (70-99) 360 mg/dL (70-99) White Blood Count 16.1 x10^3/uL (4.0-11.0) Red Blood Count 2.49 x10^6/uL (3.50-5.40) Hemoglobin 7.3 g/dL (12.0-15.5) Hematocrit 22.3 % (36.0-47.0) Mean Corpuscular Volume 90 fL (79-100) Mean Corpuscular Hemoglobin 30 pg (25-35) Mean Corpuscular Hemoglobin Concent 33 g/dL (31-37) Red Cell Distribution Width 15.2 % (11.5-14.5) Platelet Count 259 x10^3/uL (140-400) Prothrombin Time 20.8 SEC (11.7-14.0) Prothromb Time International Ratio 1.9 (0.8-1.1) Test 02/09/17 17:55 02/09/17 20:39 02/09/17 21:40 02/10/17 00:20 White Blood Count 17.8 x10^3/uL (4.0-11.0) 14.4 x10^3/uL (4.0-11.0) 12.7 x10^3/uL (4.0-11.0) Red Blood Count 2.39 x10^6/uL (3.50-5.40) 2.68 x10^6/uL (3.50-5.40) 2.55 x10^6/uL (3.50-5.40) Hemoglobin 7.0 g/dL (12.0-15.5) 8.0 g/dL (12.0-15.5) 7.6 g/dL (12.0-15.5) Hematocrit 21.5 % (36.0-47.0) 24.0 % (36.0-47.0) 22.7 % (36.0-47.0) Mean Corpuscular Volume 90 fL (79-100) 90 fL (79-100) 89 fL (79-100) Mean Corpuscular Hemoglobin 29 pg (25-35) 30 pg (25-35) 30 pg (25-35) Mean Corpuscular Hemoglobin Concent 33 g/dL (31-37) 33 g/dL (31-37) 33 g/dL (31-37) Red Cell Distribution Width 15.6 % (11.5-14.5) 15.0 % (11.5-14.5) 15.1 % (11.5-14.5) Platelet Count 255 x10^3/uL (140-400) 235 x10^3/uL (140-400) 213 x10^3/uL (140-400) Prothrombin Time 18.4 SEC (11.7-14.0) 16.4 SEC (11.7-14.0) Prothromb Time International Ratio 1.6 (0.8-1.1) 1.4 (0.8-1.1) Glucose (Fingerstick) 298 mg/dL (70-99) Test 02/10/17 05:50 02/10/17 09:18 White Blood Count 13.4 x10^3/uL (4.0-11.0) Red Blood Count 2.74 x10^6/uL (3.50-5.40) Hemoglobin 8.1 g/dL (12.0-15.5) Hematocrit 24.5 % (36.0-47.0) Mean Corpuscular Volume 89 fL (79-100) Mean Corpuscular Hemoglobin 30 pg (25-35) Mean Corpuscular Hemoglobin Concent 33 g/dL (31-37) Red Cell Distribution Width 15.5 % (11.5-14.5) Platelet Count 232 x10^3/uL (140-400) Prothrombin Time 14.7 SEC (11.7-14.0) Prothromb Time International Ratio 1.2 (0.8-1.1) Glucose (Fingerstick) 312 mg/dL (70-99) Laboratory Tests Test 02/09/17 12:50 02/09/17 13:00 02/09/17 17:52 02/09/17 17:55 Glucose (Fingerstick) 297 mg/dL (70-99) 360 mg/dL (70-99) White Blood Count 16.1 x10^3/uL (4.0-11.0) 17.8 x10^3/uL (4.0-11.0) Red Blood Count 2.49 x10^6/uL (3.50-5.40) 2.39 x10^6/uL (3.50-5.40) Hemoglobin 7.3 g/dL (12.0-15.5) 7.0 g/dL (12.0-15.5) Hematocrit 22.3 % (36.0-47.0) 21.5 % (36.0-47.0) Mean Corpuscular Volume 90 fL (79-100) 90 fL (79-100) Mean Corpuscular Hemoglobin 30 pg (25-35) 29 pg (25-35) Mean Corpuscular Hemoglobin Concent 33 g/dL (31-37) 33 g/dL (31-37) Red Cell Distribution Width 15.2 % (11.5-14.5) 15.6 % (11.5-14.5) Platelet Count 259 x10^3/uL (140-400) 255 x10^3/uL (140-400) Prothrombin Time 20.8 SEC (11.7-14.0) 18.4 SEC (11.7-14.0) Prothromb Time International Ratio 1.9 (0.8-1.1) 1.6 (0.8-1.1) Test 02/09/17 20:39 02/09/17 21:40 02/10/17 00:20 02/10/17 05:50 Glucose (Fingerstick) 298 mg/dL (70-99) White Blood Count 14.4 x10^3/uL (4.0-11.0) 12.7 x10^3/uL (4.0-11.0) 13.4 x10^3/uL (4.0-11.0) Red Blood Count 2.68 x10^6/uL (3.50-5.40) 2.55 x10^6/uL (3.50-5.40) 2.74 x10^6/uL (3.50-5.40) Hemoglobin 8.0 g/dL (12.0-15.5) 7.6 g/dL (12.0-15.5) 8.1 g/dL (12.0-15.5) Hematocrit 24.0 % (36.0-47.0) 22.7 % (36.0-47.0) 24.5 % (36.0-47.0) Mean Corpuscular Volume 90 fL (79-100) 89 fL (79-100) 89 fL (79-100) Mean Corpuscular Hemoglobin 30 pg (25-35) 30 pg (25-35) 30 pg (25-35) Mean Corpuscular Hemoglobin Concent 33 g/dL (31-37) 33 g/dL (31-37) 33 g/dL (31-37) Red Cell Distribution Width 15.0 % (11.5-14.5) 15.1 % (11.5-14.5) 15.5 % (11.5-14.5) Platelet Count 235 x10^3/uL (140-400) 213 x10^3/uL (140-400) 232 x10^3/uL (140-400) Prothrombin Time 16.4 SEC (11.7-14.0) 14.7 SEC (11.7-14.0) Prothromb Time International Ratio 1.4 (0.8-1.1) 1.2 (0.8-1.1) Test 02/10/17 09:18 Glucose (Fingerstick) 312 mg/dL (70-99) Microbiology 02/05/17 Blood Culture - Preliminary, Resulted NO GROWTH AFTER 4 DAYS 02/05/17 Urine Culture - Final, Complete 02/05/17 Urine Culture Result 1 (BISI) - Final, Complete Medications Current Medications Sodium Chloride 1,000 ml @ 620 mls/hr Q1H37M IV Last administered on 10:43; Start 02/05/17 at 09:05; Stop 02/05/17 at 12:05; Status DC Albuterol/ Ipratropium (Duoneb) 6 ml 1X ONCE NEB Last administered on 09:18; Start 02/05/17 at 09:15; Stop 02/05/17 at 09:16; Status DC Meropenem 1 gm/ Sodium Chloride 100 ml @ 200 mls/hr Q8HRS IV ; Start 02/05/17 at 14:00; Status UNV Vancomycin HCl (Vanco Per Pharmacy) 1 each PRN DAILY PRN MC SEE COMMENTS Last administered on 02/09/17 14:10; Start 02/05/17 at 11:30 Levofloxacin/ Dextrose (Levaquin Per Pharmacy) 1 each PRN DAILY PRN MC SEE COMMENTS; Start 02/05/17 at 11:30; Stop 02/09/17 at 08:20; Status DC Vancomycin HCl 2 gm/Dextrose 500 ml @ 250 mls/hr 1X ONCE IV Last administered on 02/05/17 13:20; Start 02/05/17 at 12:00; Stop 02/05/17 at 13 :59; Status DC Meropenem (Merrem) 1 gm 1X ONCE IVP Last administered on 02/05/17 11:37; Start 02/05/17 at 12:00; Stop 02/05/17 at 19:17; Status DC Levofloxacin/ Dextrose 150 ml @ 100 mls/hr 1X ONCE IV Last administered on 11:38; Start 02/05/17 at 12:00; Stop 02/05/17 at 13:29; Status DC Methylprednisolone Sodium Succinate (SOLU-Medrol 125MG VIAL) 125 mg 1X ONCE IV Last administered on 02/05/17 12:06; Start 02/05/17 at 11:45; Stop at 11:59; Status DC Ondansetron HCl (Zofran) 4 mg PRN Q8HRS PRN IV NAUSEA/VOMITING; Start at 12:00; Stop 02/06/17 at 11:59; Status DC Sodium Chloride 1,000 ml @ 75 mls/hr [id number] IV Last administered on 16:24; Start 02/05/17 at 11:46; Stop 02/06/17 at 11:19; Status DC Acetaminophen (Tylenol) 650 mg PRN Q4HRS PRN PO FEVER Last administered on 03:34; Start 02/05/17 at 12:00; Stop 02/06/17 at 11:59; Status DC Albuterol/ Ipratropium (Duoneb) 3 ml RTQID NEB Last administered on 02/06/17 09:33; Start 02/05/17 at 12:00; Stop 02/06/17 at 11:59; Status DC Dobutamine HCl 2000 mg/Dextrose 250 ml @ 4.59 mls/hr CONT IV ; Start 02/05/17 at 12:00; Stop 02/05/17 at 13:17; Status DC Dobutamine HCl/ Dextrose 250 ml @ 18.375 mls/ hr CONT PRN IV SEE I/O RECORD; Start 02/05/17 at 13:15 Meropenem (Merrem) 1 gm Q8HRS IVP Last administered on 02/05/17 21:03; Start 02/05/17 at 21:00; Stop 02/05/17 at 21:53; Status DC Levofloxacin/ Dextrose 150 ml @ 100 mls/hr Q24H IV Last administered on 20:36; Start 02/06/17 at 12:00; Stop 02/09/17 at 08:24; Status DC Vancomycin HCl 1.75 gm/Dextrose/ Sodium Chloride 500 ml @ 250 mls/hr Q18H IV Last administered on 02/07/17 19:48; Start 02/06/17 at 07:00; Stop 02/08/17 at 13:27; Status DC Vancomycin HCl 1 each 1X ONCE MC Last administered on 02/07/17 00:30; Start 02/07/17 at 00:30; Stop 02/07/17 at 00:31; Status DC Methylprednisolone Sodium Succinate (SOLU-Medrol 40MG VIAL) 40 mg Q8HRS IV Last administered on 02/10/17 06:01; Start 02/05/17 at 16:00 Enoxaparin Sodium (Lovenox 40mg Syringe) 40 mg Q24H SQ Last administered on 16:24; Start 02/05/17 at 16:00; Stop 02/05/17 at 21:19; Status DC Aspirin (Children'S Aspirin) 81 mg DAILY PO Last administered on 02/08/17 08: 41; Start 02/06/17 at 09:00 Diltiazem HCl (Cardizem 24hr Cd) 120 mg QHS PO Last administered on 02/06/17 20:43; Start 02/05/17 at 21:00 Ferrous Sulfate (Feosol) 325 mg BID PO Last administered on 02/10/17 09:00; Start 02/05/17 at 21:00 Acetaminophen/ Hydrocodone Bitart (Lortab 7.5/325) 2 tab PRN Q6HRS PRN PO PAIN Last administered on 02/08/17 08:50; Start 02/05/17 at 17:15 Levothyroxine Sodium (Synthroid) 137 mcg DAILYAC PO Last administered on 08:40; Start 02/06/17 at 07:30 Warfarin Sodium (Coumadin) 5 mg DAILY16 PO Last administered on 02/07/17 17: 28; Start 02/05/17 at 22:00; Stop 02/08/17 at 09:53; Status DC Citalopram Hydrobromide (CeleXA) 40 mg DAILY PO Last administered on 08:41; Start 02/06/17 at 09:00 Glimepiride (Amaryl) 4 mg BIDWMEALS PO Last administered on 02/08/17 08:40; Start 02/05/17 at 17:30 Losartan Potassium (Cozaar) 25 mg DAILY PO ; Start 02/06/17 at 09:00; Stop at 11:22; Status DC Atorvastatin Calcium (Lipitor) 80 mg QHS PO Last administered on 02/07/17 21: 29; Start 02/05/17 at 21:00 Insulin Aspart (NovoLOG) 0-12 UNITS QIDACHS SQ Last administered on 02/10/17 09:32; Start 02/05/17 at 18:00 Norepinephrine Bitartrate 250 ml @ 0 mls/hr CONT PRN IV SEE I/O RECORD; Start 02/05/17 at 19:00 Albuterol/ Ipratropium (Duoneb) 3 ml STK-MED ONCE .ROUTE ; Start 02/05/17 at 19 :16; Stop 02/05/17 at 19:17; Status DC Meropenem (Merrem) 1 gm Q8HRS IVP Last administered on 02/08/17 05:33; Start 02/06/17 at 06:00; Stop 02/08/17 at 09:00; Status DC Warfarin Sodium (Coumadin Per Physician) 1 each PRN DAILY PRN MC SEE COMMENTS; Start 02/06/17 at 07:45; Status Cancel Lactobacillus Rhamnosus (Culturelle) 1 cap BID PO Last administered on 08:41; Start 02/06/17 at 09:00 Albuterol/ Ipratropium (Duoneb) 3 ml RTQID NEB Last administered on 02/10/17 08:40; Start 02/06/17 at 16:00 Alprazolam (Xanax) 0.5 mg PRN TID PRN PO ANXIETY / AGITATION Last administered on 02/09/17 06:32; Start 02/06/17 at 17:30 Metformin HCl (Glucophage) 500 mg BIDWMEALS PO Last administered on 02/08/17 08:40; Start 02/07/17 at 12:00 Polyethylene Glycol (miraLAX PACKET) 17 gm PRN DAILY PRN PO CONSTIPATION Last administered on 02/07/17 21:29; Start 02/07/17 at 20:00 Alteplase, Recombinant (Cathflo) 2 mg 1X ONCE INT CAT Last administered on 07:32; Start 02/08/17 at 08:00; Stop 02/08/17 at 08:01; Status DC Pantoprazole Sodium 80 mg/ Sodium Chloride 100 ml @ 10 mls/hr Q10H IV Last administered on 02/10/17 06:27; Start 02/08/17 at 13:30 Vancomycin HCl 1.75 gm/Dextrose/ Sodium Chloride 500 ml @ 250 mls/hr Q18H IV Last administered on 02/10/17 09:09; Start 02/08/17 at 21:00 Digoxin (Lanoxin) 500 mcg 1X ONCE IV Last administered on 02/08/17 18:30; Start 02/08/17 at 18:15; Stop 02/08/17 at 18:26; Status DC Digoxin (Lanoxin) 250 mcg 1X ONCE IV Last administered on 02/08/17 19:56; Start 02/08/17 at 19:45; Stop 02/08/17 at 19:46; Status DC Fentanyl Citrate (Fentanyl 2ml Vial) 50 mcg PRN Q3HRS PRN IV PAIN Last administered on 02/08/17 21:09; Start 02/08/17 at 20:30 Albumin Human 500 ml @ 125 mls/hr 1X ONCE IV Last administered on 02/08/17 23:38; Start 02/08/17 at 22:00; Stop 02/09/17 at 01:59; Status DC Phytonadione 10 mg/Sodium Chloride 51 ml @ 102 mls/hr 1X ONCE IV Last administered on 02/09/17 07:24; Start 02/09/17 at 08:00; Stop 02/09/17 at 08 :29; Status DC Throat Lozenges (Chloraseptic) 1 spray PRN Q2HR PRN PO SORE THROAT Last administered on 02/09/17t 13:40; Start 02/09/17 at 08:45 Active Scripts Active Reported Ferrous Sulfate 325 Mg Tablet 1 Tab PO BID LAST DOSE GIVEN: DATE:01/08/17 TIME:9:00 a.m. Warfarin Sodium 5 Mg Tablet 1 Tab PO DAILY 30 Days LAST DOSE GIVEN: DATE:01/08/17 TIME:2:00 p.m Levothyroxine Sodium 137 Mcg Tablet 137 Mcg PO DAILYAC LAST DOSE GIVEN: DATE:01/08/17 TIME:7:30 a.m. Furosemide 40 Mg Tablet 40 Mg PO DAILY LAST DOSE GIVEN: DATE:01/07/17 TIME:9:00 a.m. Aspirin 81 Mg Tab.chew 1 Tab PO DAILY LAST DOSE GIVEN: DATE:01/08/17 TIME:9:00 a.m. Hydrocodone-Apap 7.5-325 (Hydrocodone Bit/Acetaminophen) 1 Each Tablet 1-2 Tab PO PRN Q6HRS PRN Took at 12:30 today may take anytime as needed for pain every 4 hours Amaryl (Glimepiride) 4 Mg Tablet 1 Tab PO BID LAST DOSE GIVEN: DATE:01/08/17 TIME:9:00 a.m. Potassium Chloride 20 Meq Tab.er.prt 1 Tab PO WEEKLY Meds not given this hospital admission. May resume home medications as approved by Physician. TIME: 8:30 a.m. NEXT DOSE DUE: DATE: 12-28-15 TIME: 8:30 a.m. Metolazone 5 Mg Tablet 5 Mg PO WEEKLY Meds not given this hospital admission. May resume home medications as approved by Physician. TIME: 8:30 a.m. NEXT DOSE DUE: DATE: 12-28-15 TIME: 8:30 a.m. Lexapro (Escitalopram Oxalate) 10 Mg Tablet 20 Mg PO DAILY LAST DOSE GIVEN: DATE:01/08/17 TIME:9:00 a.m. NEXT DOSE DUE: DATE: 12-28-15 TIME: 8:30 a.m. Cardizem Cd (Diltiazem Hcl) 240 Mg Cap.er.24h 120 Mg PO HS LAST DOSE GIVEN: DATE:01/07/17 TIME:9:00 p.m. NEXT DOSE DUE: DATE: 12-27-15 TIME: 9:00 p.m. Losartan Potassium 100 Mg Tablet 25 Mg PO DAILY LAST DOSE GIVEN: DATE:01/07/17 TIME:9:00 a.m. Crestor (Rosuvastatin Calcium) 40 Mg Tablet 40 Mg PO QHS LAST DOSE GIVEN: DATE:01/07/17 TIME:9:00 p.m. NEXT DOSE DUE: DATE: 12-27-15 TIME: 9:00 p.m. Vitals/I & O Vital Sign - Last 24 Hours 02/09/17 02/09/17 02/09/17 02/09/17 09:45 10:00 10:45 11:00 Temp 97.6 97.6 97.6 97.6 97.6 97.6 Pulse 114 114 119 119 Resp 16 16 20 20 B/P (MAP) 114/57 114/57 (76) 109/53 109/53 (71) Pulse Ox 94 94 O2 Delivery Nasal Cannula Nasal Cannula O2 Flow Rate 2.0 2.0 02/09/17 02/09/17 02/09/17 02/09/17 11:45 11:46 12:00 12:00 Temp 97.8 97.8 97.8 97.8 Pulse 115 115 Resp 27 27 B/P (MAP) 108/57 108/57 (74) Pulse Ox 97 97 O2 Delivery Nasal Cannula Nasal Cannula Nasal Cannula O2 Flow Rate 2.0 2.0 2.0 02/09/17 02/09/17 02/09/17 02/09/17 13:00 14:00 15:00 16:00 Temp 98.2 98.2 Pulse 115 132 109 97 Resp 18 16 19 B/P (MAP) 113/48 (69) 138/94 (109) 125/47 (73) 108/62 (77) Pulse Ox 93 93 97 95 O2 Delivery Nasal Cannula Nasal Cannula Nasal Cannula Nasal Cannula O2 Flow Rate 2.0 2.0 2.0 2.0 02/09/17 02/09/17 02/09/17 02/09/17 16:00 16:10 17:00 18:00 Pulse 111 104 Resp 14 16 B/P (MAP) 124/49 (74) 119/64 (82) Pulse Ox 96 92 93 O2 Delivery Nasal Cannula Nasal Cannula Nasal Cannula Nasal Cannula O2 Flow Rate 2.0 2.0 2.0 2.0 02/09/17 02/09/17 02/09/17 02/09/17 19:00 19:23 19:24 20:00 Temp 97.8 98.1 97.8 98.1 Pulse 106 106 98 Resp 17 18 14 B/P (MAP) 122/65 (84) 127/54 109/51 (70) Pulse Ox 94 95 97 O2 Delivery Nasal Cannula Nasal Cannula Nasal Cannula O2 Flow Rate 2.0 2.0 2.0 02/09/17 02/09/17 02/09/17 02/09/17 20:00 20:24 20:24 20:32 Temp 98.4 98.4 98.4 98.4 Pulse 100 102 87 Resp 15 14 B/P (MAP) 112/43 112/43 112/43 O2 Delivery Nasal Cannula O2 Flow Rate 2.0 02/09/17 02/09/17 02/09/17 02/09/17 21:00 22:00 23:00 23:59 Pulse 98 115 108 Resp 14 18 17 B/P (MAP) 116/55 (75) 139/72 (94) 122/56 (78) Pulse Ox 97 98 98 O2 Delivery Nasal Cannula Nasal Cannula Nasal Cannula Nasal Cannula O2 Flow Rate 2.0 2.0 2.0 2.0 02/10/17 02/10/17 02/10/17 02/10/17 00:00 00:00 01:00 02:00 Temp 98.2 98.2 Pulse 102 85 114 Resp 16 14 21 B/P (MAP) 106/58 (74) 107/52 (70) 111/65 (80) Pulse Ox 96 97 95 O2 Delivery Nasal Cannula Nasal Cannula Nasal Cannula O2 Flow Rate 2.0 2.0 2.0 2.0 02/10/17 02/10/17 02/10/17 02/10/17 03:00 04:00 04:00 04:00 Temp 98.1 98.1 Pulse 115 102 Resp 19 13 B/P (MAP) 118/59 (78) 122/60 (80) Pulse Ox 94 96 O2 Delivery Nasal Cannula Nasal Cannula Nasal Cannula O2 Flow Rate 2.0 2.0 2.0 2.0 02/10/17 02/10/17 02/10/17 02/10/17 05:00 06:00 07:00 08:00 Pulse 100 85 98 Resp 16 14 16 B/P (MAP) 116/70 (85) 125/73 (90) 140/65 (90) Pulse Ox 94 93 96 O2 Delivery Nasal Cannula Nasal Cannula Nasal Cannula O2 Flow Rate 2.0 2.0 2.0 2.0 02/10/17 02/10/17 02/10/17 08:00 08:41 09:00 Temp 97.8 97.8 Pulse 126 123 Resp 16 16 B/P (MAP) 140/97 (111) 134/61 (85) Pulse Ox 96 94 95 O2 Delivery Nasal Cannula Nasal Cannula Nasal Cannula O2 Flow Rate 2.0 2.0 2.0 Intake and Output 02/09/17 02/09/17 02/10/17 15:00 23:00 07:00 Intake Total 294 ml 184.06 ml 55 ml Output Total 1250 ml 1175 ml 1160 ml Balance -956 ml -990.94 ml -1105 ml CRYSTAL ARCHULETA MD Feb 10, 2017 09:54
--- NOTE | 2017-02-10 11:13 | PDOC ---
Subjective: Subjective: Better today, feels "sore from laying." Would like to eat. Objective: Objective: Rectal tube inserted overnight, C Diff ordered. Vital Signs: Vital Signs Date Time Temp Pulse Resp B/P (MAP) Pulse Ox O2 Delivery O2 Flow Rate FiO2 02/10/17 10:00 83 16 135/65 (88) 96 Nasal Cannula 2.0 02/10/17 08:00 97.8 97.8 Labs: Laboratory Tests Test 02/09/17 12:50 02/09/17 17:52 02/09/17 20:39 02/10/17 09:18 Glucose (Fingerstick) 297 mg/dL (70-99) 360 mg/dL (70-99) 298 mg/dL (70-99) 312 mg/dL (70-99) PE: GEN: appears more comfortable today LUNGS: less tachypneic HEART: tachycardic ABD: S/ND/NT NEURO/PSYCH: A & O 3 A/P: Melena - now w/ rectal tube Anemia, coagulopathy - improving -- Try clears, await C Diff. Continue PPI drip for now. Probably not the best candidate for Coumadin therapy. ARBEN PEREZ Feb 10, 2017 11:13
[2017-02-10] MEDS: ALPRAZolam 0.5 MG TABLET PO PRN ×2 (11:25→19:56)
[2017-02-10] MEDS ORDERED: DIGOXIN IV 500 MCG/2 ML AMPUL. IV ONE (12:15)
--- NOTE | 2017-02-10 12:34 | RAD ---
AP abdomen radiograph 02/10/2017 Clinical history: Diarrhea. Two AP portable supine digital radiographs of the abdomen/pelvis were obtained. The abdominal bowel gas pattern is nonobstructive. Calcifications are seen within the pelvis consistent with phleboliths. Atherosclerotic calcification of the abdominal aorta and its branches is noted. Degenerative changes are seen involving the lumbar spine and both hips. Impression: Nonobstructive bowel gas pattern.
--- NOTE | 2017-02-10 12:58 | PDOC ---
PROGRESS NOTES Subjective Subjective Asking for something to drink repetitively this morning. Patient's hemoglobin has stabilized and bleeding has improved. Patient received multiple packed red blood cell transfusions as well as platelets. INR now 1.2. Objective Objective Vital Signs Date Time Temp Pulse Resp B/P (MAP) Pulse Ox O2 Delivery O2 Flow Rate FiO2 02/10/17 12:23 93 Nasal Cannula 2.0 02/10/17 12:00 97.6 135 16 133/87 (102) 97.6 Intake and Output 02/10/17 07:00 Intake Total 533.06 ml Output Total 3585 ml Balance -3051.94 ml IV Total 179.06 ml Blood Product IV Normal Saline Flush 354 ml Output Urine Total 3385 ml Stool Total 200 ml # Bowel Movements 4 Physical Exam Abdomen: Normal bowel sounds Heart: Other (irregularly irregular) Extremities: Other (2+ pitting edema) General: Other (mildly obtunded and in mild distress) Lungs: Clear to auscultation Assessment Assessment Problems Medical Problems: (1) Acute on chronic congestive heart failure Status: Acute (2) COPD (chronic obstructive pulmonary disease) Status: Acute (3) Healthcare-associated pneumonia Status: Acute (4) Morbid obesity Status: Acute (5) Sepsis Status: Acute (6) Severe protein-calorie malnutrition Status: Acute (7) Urinary tract infection Status: Acute 1. Acute on chronic respiratory failure. 2. Anemia due to GI bleed 3. Healthcare acquired pneumonia. 4. Sepsis syndrome 5. Chronic obstructive pulmonary disease with exacerbation. 6. Atrial fibrillation with rapid ventricular response. 7. Obstructive sleep apnea. 8. Aortic stenosis. 9. Morbid obesity. 10.Hypertension. 11.Type 2 diabetes. 12.Hypothyroidism. 13.Generalized anxiety disorder. 14.Severe protein-calorie malnutrition. 15.Urinary tract infection. 16. History of diastolic congestive heart failure possibly due to cor pulmonale 17.Status post recent left total knee revision 18.coagulopathy on coumadin 19.Blood culture + coag neg staph 1/6bottles, possible contaminant- see above 20.Pulmonary HTN 21 Chronic diastolic CHF Plan Plan of Care Change to clear liquids per GI recommendations. Continue pulmonary toilet and IV antibiotics. Seek with PT and OT modalities once patient is stable. Monitor CBC and BUN/creatinine as well as INR. Comment Review of Relevant I have reviewed the following items donald (where applicable) has been applied. Labs Laboratory Tests Test 02/08/17 17:43 02/08/17 20:25 02/08/17 20:27 02/09/17 05:45 Glucose (Fingerstick) 293 mg/dL (70-99) 317 mg/dL (70-99) Hemoglobin 6.0 g/dL (12.0-15.5) 5.6 g/dL (12.0-15.5) Hematocrit 18.3 % (36.0-47.0) 17.1 % (36.0-47.0) Prothrombin Time 27.1 SEC (11.7-14.0) Prothromb Time International Ratio 2.7 (0.8-1.1) White Blood Count 12.9 x10^3/uL (4.0-11.0) Red Blood Count 1.92 x10^6/uL (3.50-5.40) Mean Corpuscular Volume 89 fL (79-100) Mean Corpuscular Hemoglobin 29 pg (25-35) Mean Corpuscular Hemoglobin Concent 33 g/dL (31-37) Red Cell Distribution Width 15.5 % (11.5-14.5) Platelet Count 255 x10^3/uL (140-400) Test 02/09/17 07:00 02/09/17 07:57 02/09/17 12:50 02/09/17 13:00 Prothrombin Time 36.4 SEC (11.7-14.0) 20.8 SEC (11.7-14.0) Prothromb Time International Ratio 4.0 (0.8-1.1) 1.9 (0.8-1.1) Glucose (Fingerstick) 316 mg/dL (70-99) 297 mg/dL (70-99) White Blood Count 16.1 x10^3/uL (4.0-11.0) Red Blood Count 2.49 x10^6/uL (3.50-5.40) Hemoglobin 7.3 g/dL (12.0-15.5) Hematocrit 22.3 % (36.0-47.0) Mean Corpuscular Volume 90 fL (79-100) Mean Corpuscular Hemoglobin 30 pg (25-35) Mean Corpuscular Hemoglobin Concent 33 g/dL (31-37) Red Cell Distribution Width 15.2 % (11.5-14.5) Platelet Count 259 x10^3/uL (140-400) Test 02/09/17 17:52 02/09/17 17:55 02/09/17 20:39 02/09/17 21:40 Glucose (Fingerstick) 360 mg/dL (70-99) 298 mg/dL (70-99) White Blood Count 17.8 x10^3/uL (4.0-11.0) 14.4 x10^3/uL (4.0-11.0) Red Blood Count 2.39 x10^6/uL (3.50-5.40) 2.68 x10^6/uL (3.50-5.40) Hemoglobin 7.0 g/dL (12.0-15.5) 8.0 g/dL (12.0-15.5) Hematocrit 21.5 % (36.0-47.0) 24.0 % (36.0-47.0) Mean Corpuscular Volume 90 fL (79-100) 90 fL (79-100) Mean Corpuscular Hemoglobin 29 pg (25-35) 30 pg (25-35) Mean Corpuscular Hemoglobin Concent 33 g/dL (31-37) 33 g/dL (31-37) Red Cell Distribution Width 15.6 % (11.5-14.5) 15.0 % (11.5-14.5) Platelet Count 255 x10^3/uL (140-400) 235 x10^3/uL (140-400) Prothrombin Time 18.4 SEC (11.7-14.0) Prothromb Time International Ratio 1.6 (0.8-1.1) Test 02/10/17 00:20 02/10/17 05:50 02/10/17 09:18 02/10/17 11:29 White Blood Count 12.7 x10^3/uL (4.0-11.0) 13.4 x10^3/uL (4.0-11.0) Red Blood Count 2.55 x10^6/uL (3.50-5.40) 2.74 x10^6/uL (3.50-5.40) Hemoglobin 7.6 g/dL (12.0-15.5) 8.1 g/dL (12.0-15.5) Hematocrit 22.7 % (36.0-47.0) 24.5 % (36.0-47.0) Mean Corpuscular Volume 89 fL (79-100) 89 fL (79-100) Mean Corpuscular Hemoglobin 30 pg (25-35) 30 pg (25-35) Mean Corpuscular Hemoglobin Concent 33 g/dL (31-37) 33 g/dL (31-37) Red Cell Distribution Width 15.1 % (11.5-14.5) 15.5 % (11.5-14.5) Platelet Count 213 x10^3/uL (140-400) 232 x10^3/uL (140-400) Prothrombin Time 16.4 SEC (11.7-14.0) 14.7 SEC (11.7-14.0) Prothromb Time International Ratio 1.4 (0.8-1.1) 1.2 (0.8-1.1) Glucose (Fingerstick) 312 mg/dL (70-99) 340 mg/dL (70-99) Laboratory Tests Test 02/09/17 13:00 02/09/17 17:52 02/09/17 17:55 02/09/17 20:39 White Blood Count 16.1 x10^3/uL (4.0-11.0) 17.8 x10^3/uL (4.0-11.0) Red Blood Count 2.49 x10^6/uL (3.50-5.40) 2.39 x10^6/uL (3.50-5.40) Hemoglobin 7.3 g/dL (12.0-15.5) 7.0 g/dL (12.0-15.5) Hematocrit 22.3 % (36.0-47.0) 21.5 % (36.0-47.0) Mean Corpuscular Volume 90 fL (79-100) 90 fL (79-100) Mean Corpuscular Hemoglobin 30 pg (25-35) 29 pg (25-35) Mean Corpuscular Hemoglobin Concent 33 g/dL (31-37) 33 g/dL (31-37) Red Cell Distribution Width 15.2 % (11.5-14.5) 15.6 % (11.5-14.5) Platelet Count 259 x10^3/uL (140-400) 255 x10^3/uL (140-400) Prothrombin Time 20.8 SEC (11.7-14.0) 18.4 SEC (11.7-14.0) Prothromb Time International Ratio 1.9 (0.8-1.1) 1.6 (0.8-1.1) Glucose (Fingerstick) 360 mg/dL (70-99) 298 mg/dL (70-99) Test 02/09/17 21:40 02/10/17 00:20 02/10/17 05:50 02/10/17 09:18 White Blood Count 14.4 x10^3/uL (4.0-11.0) 12.7 x10^3/uL (4.0-11.0) 13.4 x10^3/uL (4.0-11.0) Red Blood Count 2.68 x10^6/uL (3.50-5.40) 2.55 x10^6/uL (3.50-5.40) 2.74 x10^6/uL (3.50-5.40) Hemoglobin 8.0 g/dL (12.0-15.5) 7.6 g/dL (12.0-15.5) 8.1 g/dL (12.0-15.5) Hematocrit 24.0 % (36.0-47.0) 22.7 % (36.0-47.0) 24.5 % (36.0-47.0) Mean Corpuscular Volume 90 fL (79-100) 89 fL (79-100) 89 fL (79-100) Mean Corpuscular Hemoglobin 30 pg (25-35) 30 pg (25-35) 30 pg (25-35) Mean Corpuscular Hemoglobin Concent 33 g/dL (31-37) 33 g/dL (31-37) 33 g/dL (31-37) Red Cell Distribution Width 15.0 % (11.5-14.5) 15.1 % (11.5-14.5) 15.5 % (11.5-14.5) Platelet Count 235 x10^3/uL (140-400) 213 x10^3/uL (140-400) 232 x10^3/uL (140-400) Prothrombin Time 16.4 SEC (11.7-14.0) 14.7 SEC (11.7-14.0) Prothromb Time International Ratio 1.4 (0.8-1.1) 1.2 (0.8-1.1) Glucose (Fingerstick) 312 mg/dL (70-99) Test 02/10/17 11:29 Glucose (Fingerstick) 340 mg/dL (70-99) Microbiology 02/05/17 Blood Culture - Final, Complete NO GROWTH AFTER 5 DAYS 02/05/17 Urine Culture - Final, Complete 02/05/17 Urine Culture Result 1 (BISI) - Final, Complete Medications Current Medications Sodium Chloride 1,000 ml @ 620 mls/hr Q1H37M IV Last administered on 10:43; Start 02/05/17 at 09:05; Stop 02/05/17 at 12:05; Status DC Albuterol/ Ipratropium (Duoneb) 6 ml 1X ONCE NEB Last administered on 09:18; Start 02/05/17 at 09:15; Stop 02/05/17 at 09:16; Status DC Meropenem 1 gm/ Sodium Chloride 100 ml @ 200 mls/hr Q8HRS IV ; Start 02/05/17 at 14:00; Status UNV Vancomycin HCl (Vanco Per Pharmacy) 1 each PRN DAILY PRN MC SEE COMMENTS Last administered on 02/09/17 14:10; Start 02/05/17 at 11:30 Levofloxacin/ Dextrose (Levaquin Per Pharmacy) 1 each PRN DAILY PRN MC SEE COMMENTS; Start 02/05/17 at 11:30; Stop 02/09/17 at 08:20; Status DC Vancomycin HCl 2 gm/Dextrose 500 ml @ 250 mls/hr 1X ONCE IV Last administered on 02/05/17 13:20; Start 02/05/17 at 12:00; Stop 02/05/17 at 13 :59; Status DC Meropenem (Merrem) 1 gm 1X ONCE IVP Last administered on 02/05/17 11:37; Start 02/05/17 at 12:00; Stop 02/05/17 at 19:17; Status DC Levofloxacin/ Dextrose 150 ml @ 100 mls/hr 1X ONCE IV Last administered on 11:38; Start 02/05/17 at 12:00; Stop 02/05/17 at 13:29; Status DC Methylprednisolone Sodium Succinate (SOLU-Medrol 125MG VIAL) 125 mg 1X ONCE IV Last administered on 02/05/17 12:06; Start 02/05/17 at 11:45; Stop at 11:59; Status DC Ondansetron HCl (Zofran) 4 mg PRN Q8HRS PRN IV NAUSEA/VOMITING; Start at 12:00; Stop 02/06/17 at 11:59; Status DC Sodium Chloride 1,000 ml @ 75 mls/hr [id number] IV Last administered on 16:24; Start 02/05/17 at 11:46; Stop 02/06/17 at 11:19; Status DC Acetaminophen (Tylenol) 650 mg PRN Q4HRS PRN PO FEVER Last administered on 03:34; Start 02/05/17 at 12:00; Stop 02/06/17 at 11:59; Status DC Albuterol/ Ipratropium (Duoneb) 3 ml RTQID NEB Last administered on 02/06/17 09:33; Start 02/05/17 at 12:00; Stop 02/06/17 at 11:59; Status DC Dobutamine HCl 2000 mg/Dextrose 250 ml @ 4.59 mls/hr CONT IV ; Start 02/05/17 at 12:00; Stop 02/05/17 at 13:17; Status DC Dobutamine HCl/ Dextrose 250 ml @ 18.375 mls/ hr CONT PRN IV SEE I/O RECORD; Start 02/05/17 at 13:15 Meropenem (Merrem) 1 gm Q8HRS IVP Last administered on 02/05/17 21:03; Start 02/05/17 at 21:00; Stop 02/05/17 at 21:53; Status DC Levofloxacin/ Dextrose 150 ml @ 100 mls/hr Q24H IV Last administered on 20:36; Start 02/06/17 at 12:00; Stop 02/09/17 at 08:24; Status DC Vancomycin HCl 1.75 gm/Dextrose/ Sodium Chloride 500 ml @ 250 mls/hr Q18H IV Last administered on 02/07/17 19:48; Start 02/06/17 at 07:00; Stop 02/08/17 at 13:27; Status DC Vancomycin HCl 1 each 1X ONCE MC Last administered on 02/07/17 00:30; Start 02/07/17 at 00:30; Stop 02/07/17 at 00:31; Status DC Methylprednisolone Sodium Succinate (SOLU-Medrol 40MG VIAL) 40 mg Q8HRS IV Last administered on 02/10/17 06:01; Start 02/05/17 at 16:00 Enoxaparin Sodium (Lovenox 40mg Syringe) 40 mg Q24H SQ Last administered on 16:24; Start 02/05/17 at 16:00; Stop 02/05/17 at 21:19; Status DC Aspirin (Children'S Aspirin) 81 mg DAILY PO Last administered on 02/08/17 08: 41; Start 02/06/17 at 09:00 Diltiazem HCl (Cardizem 24hr Cd) 120 mg QHS PO Last administered on 02/06/17 20:43; Start 02/05/17 at 21:00 Ferrous Sulfate (Feosol) 325 mg BID PO Last administered on 02/10/17 09:00; Start 02/05/17 at 21:00 Acetaminophen/ Hydrocodone Bitart (Lortab 7.5/325) 2 tab PRN Q6HRS PRN PO PAIN Last administered on 02/08/17 08:50; Start 02/05/17 at 17:15 Levothyroxine Sodium (Synthroid) 137 mcg DAILYAC PO Last administered on 08:40; Start 02/06/17 at 07:30 Warfarin Sodium (Coumadin) 5 mg DAILY16 PO Last administered on 02/07/17 17: 28; Start 02/05/17 at 22:00; Stop 02/08/17 at 09:53; Status DC Citalopram Hydrobromide (CeleXA) 40 mg DAILY PO Last administered on 08:41; Start 02/06/17 at 09:00 Glimepiride (Amaryl) 4 mg BIDWMEALS PO Last administered on 02/08/17 08:40; Start 02/05/17 at 17:30 Losartan Potassium (Cozaar) 25 mg DAILY PO ; Start 02/06/17 at 09:00; Stop at 11:22; Status DC Atorvastatin Calcium (Lipitor) 80 mg QHS PO Last administered on 02/07/17 21: 29; Start 02/05/17 at 21:00 Insulin Aspart (NovoLOG) 0-12 UNITS QIDACHS SQ Last administered on 02/10/17 11:35; Start 02/05/17 at 18:00 Norepinephrine Bitartrate 250 ml @ 0 mls/hr CONT PRN IV SEE I/O RECORD; Start 02/05/17 at 19:00 Albuterol/ Ipratropium (Duoneb) 3 ml STK-MED ONCE .ROUTE ; Start 02/05/17 at 19 :16; Stop 02/05/17 at 19:17; Status DC Meropenem (Merrem) 1 gm Q8HRS IVP Last administered on 02/08/17 05:33; Start 02/06/17 at 06:00; Stop 02/08/17 at 09:00; Status DC Warfarin Sodium (Coumadin Per Physician) 1 each PRN DAILY PRN MC SEE COMMENTS; Start 02/06/17 at 07:45; Status Cancel Lactobacillus Rhamnosus (Culturelle) 1 cap BID PO Last administered on 08:41; Start 02/06/17 at 09:00 Albuterol/ Ipratropium (Duoneb) 3 ml RTQID NEB Last administered on 02/10/17 12:23; Start 02/06/17 at 16:00 Alprazolam (Xanax) 0.5 mg PRN TID PRN PO ANXIETY / AGITATION Last administered on 02/10/17 11:25; Start 02/06/17 at 17:30 Metformin HCl (Glucophage) 500 mg BIDWMEALS PO Last administered on 02/08/17 08:40; Start 02/07/17 at 12:00 Polyethylene Glycol (miraLAX PACKET) 17 gm PRN DAILY PRN PO CONSTIPATION Last administered on 02/07/17 21:29; Start 02/07/17 at 20:00 Alteplase, Recombinant (Cathflo) 2 mg 1X ONCE INT CAT Last administered on 07:32; Start 02/08/17 at 08:00; Stop 02/08/17 at 08:01; Status DC Pantoprazole Sodium 80 mg/ Sodium Chloride 100 ml @ 10 mls/hr Q10H IV Last administered on 02/10/17 06:27; Start 02/08/17 at 13:30 Vancomycin HCl 1.75 gm/Dextrose/ Sodium Chloride 500 ml @ 250 mls/hr Q18H IV Last administered on 02/10/17 09:09; Start 02/08/17 at 21:00 Digoxin (Lanoxin) 500 mcg 1X ONCE IV Last administered on 02/08/17 18:30; Start 02/08/17 at 18:15; Stop 02/08/17 at 18:26; Status DC Digoxin (Lanoxin) 250 mcg 1X ONCE IV Last administered on 02/08/17 19:56; Start 02/08/17 at 19:45; Stop 02/08/17 at 19:46; Status DC Fentanyl Citrate (Fentanyl 2ml Vial) 50 mcg PRN Q3HRS PRN IV PAIN Last administered on 02/08/17 21:09; Start 02/08/17 at 20:30 Albumin Human 500 ml @ 125 mls/hr 1X ONCE IV Last administered on 02/08/17 23:38; Start 02/08/17 at 22:00; Stop 02/09/17 at 01:59; Status DC Phytonadione 10 mg/Sodium Chloride 51 ml @ 102 mls/hr 1X ONCE IV Last administered on 02/09/17 07:24; Start 02/09/17 at 08:00; Stop 02/09/17 at 08 :29; Status DC Throat Lozenges (Chloraseptic) 1 spray PRN Q2HR PRN PO SORE THROAT Last administered on 02/09/17 13:40; Start 02/09/17 at 08:45 Digoxin (Lanoxin) 125 mcg 1X ONCE IV ; Start 02/10/17 at 12:15; Stop at 12:16; Status DC Active Scripts Active Reported Ferrous Sulfate 325 Mg Tablet 1 Tab PO BID LAST DOSE GIVEN: DATE:01/08/17 TIME:9:00 a.m. Warfarin Sodium 5 Mg Tablet 1 Tab PO DAILY 30 Days LAST DOSE GIVEN: DATE:01/08/17 TIME:2:00 p.m Levothyroxine Sodium 137 Mcg Tablet 137 Mcg PO DAILYAC LAST DOSE GIVEN: DATE:01/08/17 TIME:7:30 a.m. Furosemide 40 Mg Tablet 40 Mg PO DAILY LAST DOSE GIVEN: DATE:01/07/17 TIME:9:00 a.m. Aspirin 81 Mg Tab.chew 1 Tab PO DAILY LAST DOSE GIVEN: DATE:01/08/17 TIME:9:00 a.m. Hydrocodone-Apap 7.5-325 (Hydrocodone Bit/Acetaminophen) 1 Each Tablet 1-2 Tab PO PRN Q6HRS PRN Took at 12:30 today may take anytime as needed for pain every 4 hours Amaryl (Glimepiride) 4 Mg Tablet 1 Tab PO BID LAST DOSE GIVEN: DATE:01/08/17 TIME:9:00 a.m. Potassium Chloride 20 Meq Tab.er.prt 1 Tab PO WEEKLY Meds not given this hospital admission. May resume home medications as approved by Physician. TIME: 8:30 a.m. NEXT DOSE DUE: DATE: 12-28-15 TIME: 8:30 a.m. Metolazone 5 Mg Tablet 5 Mg PO WEEKLY Meds not given this hospital admission. May resume home medications as approved by Physician. TIME: 8:30 a.m. NEXT DOSE DUE: DATE: 12-28-15 TIME: 8:30 a.m. Lexapro (Escitalopram Oxalate) 10 Mg Tablet 20 Mg PO DAILY LAST DOSE GIVEN: DATE:01/08/17 TIME:9:00 a.m. NEXT DOSE DUE: DATE: 12-28-15 TIME: 8:30 a.m. Cardizem Cd (Diltiazem Hcl) 240 Mg Cap.er.24h 120 Mg PO HS LAST DOSE GIVEN: DATE:01/07/17 TIME:9:00 p.m. NEXT DOSE DUE: DATE: 12-27-15 TIME: 9:00 p.m. Losartan Potassium 100 Mg Tablet 25 Mg PO DAILY LAST DOSE GIVEN: DATE:01/07/17 TIME:9:00 a.m. Crestor (Rosuvastatin Calcium) 40 Mg Tablet 40 Mg PO QHS LAST DOSE GIVEN: DATE:01/07/17 TIME:9:00 p.m. NEXT DOSE DUE: DATE: 12-27-15 TIME: 9:00 p.m. Vitals/I & O Vital Sign - Last 24 Hours 02/09/17 02/09/17 02/09/17 02/09/17 13:00 14:00 15:00 16:00 Temp 98.2 98.2 Pulse 115 132 109 97 Resp 18 16 19 B/P (MAP) 113/48 (69) 138/94 (109) 125/47 (73) 108/62 (77) Pulse Ox 93 93 97 95 O2 Delivery Nasal Cannula Nasal Cannula Nasal Cannula Nasal Cannula O2 Flow Rate 2.0 2.0 2.0 2.0 02/09/17 02/09/17 02/09/17 02/09/17 16:00 16:10 17:00 18:00 Pulse 111 104 Resp 16 B/P (MAP) 124/49 (74) 119/64 (82) Pulse Ox 96 92 93 O2 Delivery Nasal Cannula Nasal Cannula Nasal Cannula Nasal Cannula O2 Flow Rate 2.0 2.0 2.0 2.0 02/09/17 02/09/17 02/09/17 02/09/17 19:00 19:23 19:24 20:00 Temp 97.8 98.1 97.8 98.1 Pulse 106 106 98 Resp 18 14 B/P (MAP) 122/65 (84) 127/54 109/51 (70) Pulse Ox 94 95 97 O2 Delivery Nasal Cannula Nasal Cannula Nasal Cannula O2 Flow Rate 2.0 2.0 2.0 02/09/17 02/09/17 02/09/17 02/09/17 20:00 20:24 20:24 20:32 Temp 98.4 98.4 98.4 98.4 Pulse 100 102 87 Resp 15 14 B/P (MAP) 112/43 112/43 112/43 O2 Delivery Nasal Cannula O2 Flow Rate 2.0 02/09/17 02/09/17 02/09/17 02/09/17 21:00 22:00 23:00 23:59 Pulse 98 115 108 Resp 14 18 17 B/P (MAP) 116/55 (75) 139/72 (94) 122/56 (78) Pulse Ox 97 98 98 O2 Delivery Nasal Cannula Nasal Cannula Nasal Cannula Nasal Cannula O2 Flow Rate 2.0 2.0 2.0 2.0 02/10/17 02/10/17 02/10/17 02/10/17 00:00 00:00 01:00 02:00 Temp 98.2 98.2 Pulse 102 85 114 Resp 16 14 21 B/P (MAP) 106/58 (74) 107/52 (70) 111/65 (80) Pulse Ox 96 97 95 O2 Delivery Nasal Cannula Nasal Cannula Nasal Cannula O2 Flow Rate 2.0 2.0 2.0 2.0 02/10/17 02/10/17 02/10/17 02/10/17 03:00 04:00 04:00 04:00 Temp 98.1 98.1 Pulse 115 102 Resp 19 13 B/P (MAP) 118/59 (78) 122/60 (80) Pulse Ox 94 96 O2 Delivery Nasal Cannula Nasal Cannula Nasal Cannula O2 Flow Rate 2.0 2.0 2.0 2.0 02/10/17 02/10/17 02/10/17 02/10/17 05:00 06:00 07:00 08:00 Pulse 100 85 98 Resp 16 14 16 B/P (MAP) 116/70 (85) 125/73 (90) 140/65 (90) Pulse Ox 94 93 96 O2 Delivery Nasal Cannula Nasal Cannula Nasal Cannula O2 Flow Rate 2.0 2.0 2.0 2.0 02/10/17 02/10/17 02/10/17 02/10/17 08:00 08:00 08:41 09:00 Temp 97.8 97.8 Pulse 126 123 Resp 16 16 B/P (MAP) 140/97 (111) 134/61 (85) Pulse Ox 96 94 95 O2 Delivery Nasal Cannula Nasal Cannula Nasal Cannula Nasal Cannula O2 Flow Rate 2.0 2.0 2.0 2.0 02/10/17 02/10/17 02/10/17 02/10/17 10:00 11:00 12:00 12:00 Temp 97.6 97.6 Pulse 83 85 135 Resp 16 16 16 B/P (MAP) 135/65 (88) 135/73 (93) 133/87 (102) Pulse Ox 96 96 92 O2 Delivery Nasal Cannula Nasal Cannula Nasal Cannula Nasal Cannula O2 Flow Rate 2.0 2.0 3.0 2.0 02/10/17 02/10/17 12:00 12:23 Pulse Ox 93 O2 Delivery Nasal Cannula O2 Flow Rate 2.0 2.0 Intake and Output 02/09/17 02/09/17 02/10/17 15:00 23:00 07:00 Intake Total 294 ml 184.06 ml 55 ml Output Total 1250 ml 1175 ml 1160 ml Balance -956 ml -990.94 ml -1105 ml JUAN COOK MD Feb 10, 2017 12:58
[2017-02-10 13:34] LABS: CALCIUM 8.6 mg/dL (8.5-10.1); CREATININE 0.9 mg/dL (0.6-1.0); GFR 60.6; POTASSIUM 4.5 mmol/L (3.5-5.1)
[2017-02-10] MEDS: VANCOMYCIN PER PHARMACY MC PRN (14:10)
--- NOTE | 2017-02-10 14:27 | PDOC ---
PULMONARY PROGRESS NOTES Subjective PT OFF BIPAP FEELS BETTER Vitals Vital Signs Date Time Temp Pulse Resp B/P (MAP) Pulse Ox O2 Delivery O2 Flow Rate FiO2 02/10/17 14:11 97.6 115 18 108/61 (77) 93 Nasal Cannula 2.0 97.6 ROS: No Nausea, No Chest Pain, No Abdominal Pain, No Increase Cough General: Alert, No acute distress Lungs: Clear Cardiovascular: S1, S2 Abdomen: Soft, Other (obese) Neuro Exam: Alert Extremities: Other (2+edema) Labs Laboratory Tests Test 02/08/17 17:43 02/08/17 20:25 02/08/17 20:27 02/09/17 05:45 Glucose (Fingerstick) 293 mg/dL (70-99) 317 mg/dL (70-99) Hemoglobin 6.0 g/dL (12.0-15.5) 5.6 g/dL (12.0-15.5) Hematocrit 18.3 % (36.0-47.0) 17.1 % (36.0-47.0) Prothrombin Time 27.1 SEC (11.7-14.0) Prothromb Time International Ratio 2.7 (0.8-1.1) White Blood Count 12.9 x10^3/uL (4.0-11.0) Red Blood Count 1.92 x10^6/uL (3.50-5.40) Mean Corpuscular Volume 89 fL (79-100) Mean Corpuscular Hemoglobin 29 pg (25-35) Mean Corpuscular Hemoglobin Concent 33 g/dL (31-37) Red Cell Distribution Width 15.5 % (11.5-14.5) Platelet Count 255 x10^3/uL (140-400) Test 02/09/17 07:00 02/09/17 07:57 02/09/17 12:50 02/09/17 13:00 Prothrombin Time 36.4 SEC (11.7-14.0) 20.8 SEC (11.7-14.0) Prothromb Time International Ratio 4.0 (0.8-1.1) 1.9 (0.8-1.1) Glucose (Fingerstick) 316 mg/dL (70-99) 297 mg/dL (70-99) White Blood Count 16.1 x10^3/uL (4.0-11.0) Red Blood Count 2.49 x10^6/uL (3.50-5.40) Hemoglobin 7.3 g/dL (12.0-15.5) Hematocrit 22.3 % (36.0-47.0) Mean Corpuscular Volume 90 fL (79-100) Mean Corpuscular Hemoglobin 30 pg (25-35) Mean Corpuscular Hemoglobin Concent 33 g/dL (31-37) Red Cell Distribution Width 15.2 % (11.5-14.5) Platelet Count 259 x10^3/uL (140-400) Test 02/09/17 17:52 02/09/17 17:55 02/09/17 20:39 02/09/17 21:40 Glucose (Fingerstick) 360 mg/dL (70-99) 298 mg/dL (70-99) White Blood Count 17.8 x10^3/uL (4.0-11.0) 14.4 x10^3/uL (4.0-11.0) Red Blood Count 2.39 x10^6/uL (3.50-5.40) 2.68 x10^6/uL (3.50-5.40) Hemoglobin 7.0 g/dL (12.0-15.5) 8.0 g/dL (12.0-15.5) Hematocrit 21.5 % (36.0-47.0) 24.0 % (36.0-47.0) Mean Corpuscular Volume 90 fL (79-100) 90 fL (79-100) Mean Corpuscular Hemoglobin 29 pg (25-35) 30 pg (25-35) Mean Corpuscular Hemoglobin Concent 33 g/dL (31-37) 33 g/dL (31-37) Red Cell Distribution Width 15.6 % (11.5-14.5) 15.0 % (11.5-14.5) Platelet Count 255 x10^3/uL (140-400) 235 x10^3/uL (140-400) Prothrombin Time 18.4 SEC (11.7-14.0) Prothromb Time International Ratio 1.6 (0.8-1.1) Test 02/10/17 00:20 02/10/17 05:50 02/10/17 09:18 02/10/17 11:29 White Blood Count 12.7 x10^3/uL (4.0-11.0) 13.4 x10^3/uL (4.0-11.0) Red Blood Count 2.55 x10^6/uL (3.50-5.40) 2.74 x10^6/uL (3.50-5.40) Hemoglobin 7.6 g/dL (12.0-15.5) 8.1 g/dL (12.0-15.5) Hematocrit 22.7 % (36.0-47.0) 24.5 % (36.0-47.0) Mean Corpuscular Volume 89 fL (79-100) 89 fL (79-100) Mean Corpuscular Hemoglobin 30 pg (25-35) 30 pg (25-35) Mean Corpuscular Hemoglobin Concent 33 g/dL (31-37) 33 g/dL (31-37) Red Cell Distribution Width 15.1 % (11.5-14.5) 15.5 % (11.5-14.5) Platelet Count 213 x10^3/uL (140-400) 232 x10^3/uL (140-400) Prothrombin Time 16.4 SEC (11.7-14.0) 14.7 SEC (11.7-14.0) Prothromb Time International Ratio 1.4 (0.8-1.1) 1.2 (0.8-1.1) Glucose (Fingerstick) 312 mg/dL (70-99) 340 mg/dL (70-99) Test 02/10/17 13:05 Sodium Level 149 mmol/L (136-145) Potassium Level 4.5 mmol/L (3.5-5.1) Chloride Level 107 mmol/L (98-107) Carbon Dioxide Level 35 mmol/L (21-32) Anion Gap 7 (6-14) Blood Urea Nitrogen 45 mg/dL (7-20) Creatinine 0.9 mg/dL (0.6-1.0) Estimated GFR (Cockcroft-Gault) 60.6 Glucose Level 323 mg/dL (70-99) Calcium Level 8.6 mg/dL (8.5-10.1) Laboratory Tests Test 02/09/17 17:52 02/09/17 17:55 02/09/17 20:39 02/09/17 21:40 Glucose (Fingerstick) 360 mg/dL (70-99) 298 mg/dL (70-99) White Blood Count 17.8 x10^3/uL (4.0-11.0) 14.4 x10^3/uL (4.0-11.0) Red Blood Count 2.39 x10^6/uL (3.50-5.40) 2.68 x10^6/uL (3.50-5.40) Hemoglobin 7.0 g/dL (12.0-15.5) 8.0 g/dL (12.0-15.5) Hematocrit 21.5 % (36.0-47.0) 24.0 % (36.0-47.0) Mean Corpuscular Volume 90 fL (79-100) 90 fL (79-100) Mean Corpuscular Hemoglobin 29 pg (25-35) 30 pg (25-35) Mean Corpuscular Hemoglobin Concent 33 g/dL (31-37) 33 g/dL (31-37) Red Cell Distribution Width 15.6 % (11.5-14.5) 15.0 % (11.5-14.5) Platelet Count 255 x10^3/uL (140-400) 235 x10^3/uL (140-400) Prothrombin Time 18.4 SEC (11.7-14.0) Prothromb Time International Ratio 1.6 (0.8-1.1) Test 02/10/17 00:20 02/10/17 05:50 02/10/17 09:18 02/10/17 11:29 White Blood Count 12.7 x10^3/uL (4.0-11.0) 13.4 x10^3/uL (4.0-11.0) Red Blood Count 2.55 x10^6/uL (3.50-5.40) 2.74 x10^6/uL (3.50-5.40) Hemoglobin 7.6 g/dL (12.0-15.5) 8.1 g/dL (12.0-15.5) Hematocrit 22.7 % (36.0-47.0) 24.5 % (36.0-47.0) Mean Corpuscular Volume 89 fL (79-100) 89 fL (79-100) Mean Corpuscular Hemoglobin 30 pg (25-35) 30 pg (25-35) Mean Corpuscular Hemoglobin Concent 33 g/dL (31-37) 33 g/dL (31-37) Red Cell Distribution Width 15.1 % (11.5-14.5) 15.5 % (11.5-14.5) Platelet Count 213 x10^3/uL (140-400) 232 x10^3/uL (140-400) Prothrombin Time 16.4 SEC (11.7-14.0) 14.7 SEC (11.7-14.0) Prothromb Time International Ratio 1.4 (0.8-1.1) 1.2 (0.8-1.1) Glucose (Fingerstick) 312 mg/dL (70-99) 340 mg/dL (70-99) Test 02/10/17 13:05 Sodium Level 149 mmol/L (136-145) Potassium Level 4.5 mmol/L (3.5-5.1) Chloride Level 107 mmol/L (98-107) Carbon Dioxide Level 35 mmol/L (21-32) Anion Gap 7 (6-14) Blood Urea Nitrogen 45 mg/dL (7-20) Creatinine 0.9 mg/dL (0.6-1.0) Estimated GFR (Cockcroft-Gault) 60.6 Glucose Level 323 mg/dL (70-99) Calcium Level 8.6 mg/dL (8.5-10.1) Medications Active Scripts Medications Dose Route/Sig Max Daily Dose Days Date Category Dose Instructions Ferrous Sulfate 325 Mg Tablet 1 Tab PO BID 01/08/17 Reported LAST DOSE GIVEN: DATE:01/08/17 TIME:9:00 a.m. Warfarin Sodium 5 Mg Tablet 1 Tab PO DAILY 30 01/08/17 Reported LAST DOSE GIVEN: DATE:01/08/17 TIME:2:00 p.m Levothyroxine Sodium 137 Mcg Tablet 137 Mcg PO DAILYAC 01/04/17 Reported LAST DOSE GIVEN: DATE:01/08/17 TIME:7:30 a.m. Furosemide 40 Mg Tablet 40 Mg PO DAILY 01/04/17 Reported LAST DOSE GIVEN: DATE:01/07/17 TIME:9:00 a.m. Aspirin 81 Mg Tab.chew 1 Tab PO DAILY 11/16/16 Reported LAST DOSE GIVEN: DATE:01/08/17 TIME:9:00 a.m. Hydrocodone-Apap 7.5-325 (Hydrocodone Bit/Acetaminophen) 1 Each Tablet 1-2 Tab PO PRN Q6HRS PRN 12/26/15 Reported Took at 12:30 today may take anytime as needed for pain every 4 hours Amaryl (Glimepiride) 4 Mg Tablet 1 Tab PO BID 12/16/15 Reported LAST DOSE GIVEN: DATE:01/08/17 TIME:9:00 a.m. Potassium Chloride 20 Meq Tab.er.prt 1 Tab PO WEEKLY 04/17/15 Reported Meds not given this hospital admission. May resume home medications as approved by Physician. TIME: 8:30 a.m. NEXT DOSE DUE: DATE: 12-28-15 TIME: 8:30 a.m. Metolazone 5 Mg Tablet 5 Mg PO WEEKLY 04/16/15 Reported Meds not given this hospital admission. May resume home medications as approved by Physician. TIME: 8:30 a.m. NEXT DOSE DUE: DATE: 12-28-15 TIME: 8:30 a.m. Lexapro (Escitalopram Oxalate) 10 Mg Tablet 20 Mg PO DAILY 05/01/13 Reported LAST DOSE GIVEN: DATE:01/08/17 TIME:9:00 a.m. NEXT DOSE DUE: DATE: 12-28-15 TIME: 8:30 a.m. Cardizem Cd (Diltiazem Hcl) 240 Mg Cap.er.24h 120 Mg PO HS 05/01/13 Reported LAST DOSE GIVEN: DATE:01/07/17 TIME:9:00 p.m. NEXT DOSE DUE: DATE: 12-27-15 TIME: 9:00 p.m. Losartan Potassium 100 Mg Tablet 25 Mg PO DAILY 05/01/13 Reported LAST DOSE GIVEN: DATE:01/07/17 TIME:9:00 a.m. Crestor (Rosuvastatin Calcium) 40 Mg Tablet 40 Mg PO QHS 05/01/13 Reported LAST DOSE GIVEN: DATE:01/07/17 TIME:9:00 p.m. NEXT DOSE DUE: DATE: 12-27-15 TIME: 9:00 p.m. Impression . 1. Acute on chronic hypercapnic respiratory failure multifactorial 2. Sepsis per ID 3. JAYLIN 4. COPD 5. Moderate to severe protein-calorie malnutrition. 6. Abnormal chest x-ray 7. Acute Blood loss anemia 8. Coagulopathy 9. Morbid Obesity Plan . OK TO TRANSFER 1. PRN BiPAP. 2. FFP 3. ANTIBX PER ID 4. IV FLUIDS 5. FOLLOW IR RECOMMENDATION 6. ECHO REPORT NOTED FROM LAST TIME 7. DIET PER GI CCT 30 MINUTES HARLEEN MENDOZA MD Feb 10, 2017 14:27
[2017-02-10] MEDS ORDERED: SODIUM CHLORIDE 0.65% NASAL SPRAY 45ML BOTTLE. NS PRN (17:30)
[2017-02-10] MEDS: HYDROcodone/APAP 7.5/325MG 1 TAB TABLET PO PRN (19:56)
[2017-02-10] MEDS: ATORVASTATIN CALCIUM 40 MG TABLET. PO SCH (20:27)
[2017-02-11] VITALS (24 sets, daily range): BP systolic 84–138; BP diastolic 50–93
[2017-02-11] MEDS: INSULIN ASPART 300 UNITS/3 ML INSULN.PEN SQ SCH ×8 (00:50→22:24)
[2017-02-11] MEDS: VANCOMYCIN 1.75 GM in IV DEXTROSE 5 %-0.45 % NACL 500 ML IV SCH (02:15)
[2017-02-11] MEDS: PANTOPRAZOLE SODIUM IV DRIP 80 MG in IV NORMAL SALINE 100ML 100 ML IV SCH ×3 (06:02→22:31)
[2017-02-11] MEDS: methylPREDNISolone SOD SUCC PF 40 MG/ML VIAL. IV SCH (06:02)
[2017-02-11] MEDS: metFORMIN 500 MG TABLET PO SCH ×2 (08:00→17:15)
[2017-02-11] MEDS: GLIMEPIRIDE 2 MG TABLET. PO SCH ×2 (08:00→17:16)
--- NOTE | 2017-02-11 08:15 | PDOC ---
Infectious Disease Note Subjective Subjective pt coughing ,dry, says feels ok, no n/v/abdo pain/sob Lt knee pain resolved had 3 units PRBCs yesterday ROS ROS dry cough,no fever, chills,nausea, vomiting Vital Sign Vital Signs Vital Signs Date Time Temp Pulse Resp B/P (MAP) Pulse Ox O2 Delivery O2 Flow Rate FiO2 02/11/17 06:00 105 21 121/93 (102) 98 Nasal Cannula 2.0 02/11/17 04:00 97.9 97.9 Physical Exam PHYSICAL EXAM GEN: fatigued , alert awake HEENT: oral mucosa dry, no icterus Cardiac: irregular, tachycardia Lungs:dec bs at bases Abd: soft, non distended, nontender, no rebound , no guarding Ext: 2+ pitting edema LE bilaterally, chronic venous stasis changes RLE, erythema in left knee and LLE has completely resolved Neuro: grossly nonfocal Labs Lab Laboratory Tests Test 02/10/17 09:18 02/10/17 11:29 02/10/17 13:05 02/10/17 17:06 Glucose (Fingerstick) 312 mg/dL (70-99) 340 mg/dL (70-99) 280 mg/dL (70-99) Sodium Level 149 mmol/L (136-145) Potassium Level 4.5 mmol/L (3.5-5.1) Chloride Level 107 mmol/L (98-107) Carbon Dioxide Level 35 mmol/L (21-32) Anion Gap 7 (6-14) Blood Urea Nitrogen 45 mg/dL (7-20) Creatinine 0.9 mg/dL (0.6-1.0) Estimated GFR (Cockcroft-Gault) 60.6 Glucose Level 323 mg/dL (70-99) Calcium Level 8.6 mg/dL (8.5-10.1) Test 02/10/17 19:44 02/10/17 21:40 02/11/17 00:47 02/11/17 06:15 Glucose (Fingerstick) 270 mg/dL (70-99) 226 mg/dL (70-99) 258 mg/dL (70-99) 297 mg/dL (70-99) Micro reviewed BC coag neg staph, contaminant 1/6 bottles Objective Assessment cough likely venous congestion Anemia from gi bleed, gi following coagulopathy on coumadin Leucocytosis likely reactive,multifactorial on steroids Acute on chronic respiratory failure- likely multifactorial. improving Sepsis- likely multifactorial. resolved Blood culture + coag neg staph 1/6bottles, possible contaminant- see above COPD Acute on chronic diastolic congestive heart failure- Pulmonary HTN Atrial fibrillation Obstructive sleep apnea. Aortic stenosis. HTN Type 2 diabetes Hypothyroidism Generalized anxiety disorder Severe protein-calorie malnutrition HLD Plan Plan of Care discontinue vanc monitor lt knee closely continue supportive care obtain cxr BRITTANIE HERNANDEZ MD Feb 11, 2017 08:14
[2017-02-11] MEDS: ASPIRIN CHEWABLE 81 MG TABLET. PO SCH (09:00)
[2017-02-11] MEDS: IPRATRPIUM/ALBUTEROL 0.5/2.5MG 3 ML NEBU. NEB SCH ×4 (09:05→20:25)
[2017-02-11 12:24] LABS: HEMATOCRIT 22.8 % (36.0-47.0); HEMOGLOBIN 7.3 g/dL (12.0-15.5); RED BLOOD COUNT 2.46 x10^6/uL (3.50-5.40); RED CELL DISTRIBUTION WIDTH 16.3 % (11.5-14.5); WHITE BLOOD COUNT 15.1 x10^3/uL (4.0-11.0)
[2017-02-11 12:34] LABS: CALCIUM 8.1 mg/dL (8.5-10.1); CREATININE 0.7 mg/dL (0.6-1.0); GFR 80.9; POTASSIUM 5.2 mmol/L (3.5-5.1)
[2017-02-11] MEDS: FERROUS SULFATE 325 MG TABLET. PO SCH ×2 (12:42→22:13)
[2017-02-11] MEDS: LEVOTHYROXINE 137 MCG TABLET PO SCH (12:42)
[2017-02-11] MEDS: LACTOBACILLUS RHAMNOSUS GG 1 CAPSULE. PO SCH ×2 (12:42→22:15)
[2017-02-11] MEDS: CITALOPRAM 20 MG TABLET. PO SCH (12:42)
--- NOTE | 2017-02-11 13:08 | PDOC ---
PROGRESS NOTES Subjective Subjective Pt feeling better Not as thirsty today Objective Objective Vital Signs Date Time Temp Pulse Resp B/P (MAP) Pulse Ox O2 Delivery O2 Flow Rate FiO2 02/11/17 12:07 97 Nasal Cannula 3.0 02/11/17 12:00 98.7 117 22 105/52 (69) 98.7 Intake and Output 02/11/17 06:59 Intake Total 1333 ml Output Total 2960 ml Balance -1627 ml Intake Oral 790 ml IV Total 543 ml Output Urine Total 2760 ml Stool Total 200 ml Physical Exam Physical Exam No changes in cardiac exam Abdomen: Normal bowel sounds, Soft Heart: Other (irregularly irregular S1 and S2, no changes in systolic murmur) Lungs: Clear to auscultation Assessment Assessment No changes from cardiac standpoint I agree with present plan. Will check labs. Problems Medical Problems: (1) Acute on chronic congestive heart failure Status: Acute (2) COPD (chronic obstructive pulmonary disease) Status: Acute (3) Healthcare-associated pneumonia Status: Acute (4) Morbid obesity Status: Acute (5) Sepsis Status: Acute (6) Severe protein-calorie malnutrition Status: Acute (7) Urinary tract infection Status: Acute Comment Review of Relevant I have reviewed the following items donald (where applicable) has been applied. Labs Laboratory Tests Test 02/09/17 17:52 02/09/17 17:55 02/09/17 20:39 02/09/17 21:40 Glucose (Fingerstick) 360 mg/dL (70-99) 298 mg/dL (70-99) White Blood Count 17.8 x10^3/uL (4.0-11.0) 14.4 x10^3/uL (4.0-11.0) Red Blood Count 2.39 x10^6/uL (3.50-5.40) 2.68 x10^6/uL (3.50-5.40) Hemoglobin 7.0 g/dL (12.0-15.5) 8.0 g/dL (12.0-15.5) Hematocrit 21.5 % (36.0-47.0) 24.0 % (36.0-47.0) Mean Corpuscular Volume 90 fL (79-100) 90 fL (79-100) Mean Corpuscular Hemoglobin 29 pg (25-35) 30 pg (25-35) Mean Corpuscular Hemoglobin Concent 33 g/dL (31-37) 33 g/dL (31-37) Red Cell Distribution Width 15.6 % (11.5-14.5) 15.0 % (11.5-14.5) Platelet Count 255 x10^3/uL (140-400) 235 x10^3/uL (140-400) Prothrombin Time 18.4 SEC (11.7-14.0) Prothromb Time International Ratio 1.6 (0.8-1.1) Test 02/10/17 00:20 02/10/17 05:50 02/10/17 09:18 02/10/17 11:29 White Blood Count 12.7 x10^3/uL (4.0-11.0) 13.4 x10^3/uL (4.0-11.0) Red Blood Count 2.55 x10^6/uL (3.50-5.40) 2.74 x10^6/uL (3.50-5.40) Hemoglobin 7.6 g/dL (12.0-15.5) 8.1 g/dL (12.0-15.5) Hematocrit 22.7 % (36.0-47.0) 24.5 % (36.0-47.0) Mean Corpuscular Volume 89 fL (79-100) 89 fL (79-100) Mean Corpuscular Hemoglobin 30 pg (25-35) 30 pg (25-35) Mean Corpuscular Hemoglobin Concent 33 g/dL (31-37) 33 g/dL (31-37) Red Cell Distribution Width 15.1 % (11.5-14.5) 15.5 % (11.5-14.5) Platelet Count 213 x10^3/uL (140-400) 232 x10^3/uL (140-400) Prothrombin Time 16.4 SEC (11.7-14.0) 14.7 SEC (11.7-14.0) Prothromb Time International Ratio 1.4 (0.8-1.1) 1.2 (0.8-1.1) Glucose (Fingerstick) 312 mg/dL (70-99) 340 mg/dL (70-99) Test 02/10/17 13:05 02/10/17 17:06 02/10/17 19:44 02/10/17 21:40 Sodium Level 149 mmol/L (136-145) Potassium Level 4.5 mmol/L (3.5-5.1) Chloride Level 107 mmol/L (98-107) Carbon Dioxide Level 35 mmol/L (21-32) Anion Gap 7 (6-14) Blood Urea Nitrogen 45 mg/dL (7-20) Creatinine 0.9 mg/dL (0.6-1.0) Estimated GFR (Cockcroft-Gault) 60.6 Glucose Level 323 mg/dL (70-99) Calcium Level 8.6 mg/dL (8.5-10.1) Glucose (Fingerstick) 280 mg/dL (70-99) 270 mg/dL (70-99) 226 mg/dL (70-99) Test 02/11/17 00:47 02/11/17 06:15 02/11/17 08:56 02/11/17 12:15 Glucose (Fingerstick) 258 mg/dL (70-99) 297 mg/dL (70-99) 285 mg/dL (70-99) White Blood Count 15.1 x10^3/uL (4.0-11.0) Red Blood Count 2.46 x10^6/uL (3.50-5.40) Hemoglobin 7.3 g/dL (12.0-15.5) Hematocrit 22.8 % (36.0-47.0) Mean Corpuscular Volume 93 fL (79-100) Mean Corpuscular Hemoglobin 30 pg (25-35) Mean Corpuscular Hemoglobin Concent 32 g/dL (31-37) Red Cell Distribution Width 16.3 % (11.5-14.5) Platelet Count 251 x10^3/uL (140-400) Sodium Level 149 mmol/L (136-145) Potassium Level 5.2 mmol/L (3.5-5.1) Chloride Level 110 mmol/L (98-107) Carbon Dioxide Level 36 mmol/L (21-32) Anion Gap 3 (6-14) Blood Urea Nitrogen 47 mg/dL (7-20) Creatinine 0.7 mg/dL (0.6-1.0) Estimated GFR (Cockcroft-Gault) 80.9 Glucose Level 273 mg/dL (70-99) Calcium Level 8.1 mg/dL (8.5-10.1) Test 02/11/17 12:24 Glucose (Fingerstick) 255 mg/dL (70-99) Laboratory Tests Test 02/10/17 13:05 02/10/17 17:06 02/10/17 19:44 02/10/17 21:40 Sodium Level 149 mmol/L (136-145) Potassium Level 4.5 mmol/L (3.5-5.1) Chloride Level 107 mmol/L (98-107) Carbon Dioxide Level 35 mmol/L (21-32) Anion Gap 7 (6-14) Blood Urea Nitrogen 45 mg/dL (7-20) Creatinine 0.9 mg/dL (0.6-1.0) Estimated GFR (Cockcroft-Gault) 60.6 Glucose Level 323 mg/dL (70-99) Calcium Level 8.6 mg/dL (8.5-10.1) Glucose (Fingerstick) 280 mg/dL (70-99) 270 mg/dL (70-99) 226 mg/dL (70-99) Test 02/11/17 00:47 02/11/17 06:15 02/11/17 08:56 02/11/17 12:15 Glucose (Fingerstick) 258 mg/dL (70-99) 297 mg/dL (70-99) 285 mg/dL (70-99) White Blood Count 15.1 x10^3/uL (4.0-11.0) Red Blood Count 2.46 x10^6/uL (3.50-5.40) Hemoglobin 7.3 g/dL (12.0-15.5) Hematocrit 22.8 % (36.0-47.0) Mean Corpuscular Volume 93 fL (79-100) Mean Corpuscular Hemoglobin 30 pg (25-35) Mean Corpuscular Hemoglobin Concent 32 g/dL (31-37) Red Cell Distribution Width 16.3 % (11.5-14.5) Platelet Count 251 x10^3/uL (140-400) Sodium Level 149 mmol/L (136-145) Potassium Level 5.2 mmol/L (3.5-5.1) Chloride Level 110 mmol/L (98-107) Carbon Dioxide Level 36 mmol/L (21-32) Anion Gap 3 (6-14) Blood Urea Nitrogen 47 mg/dL (7-20) Creatinine 0.7 mg/dL (0.6-1.0) Estimated GFR (Cockcroft-Gault) 80.9 Glucose Level 273 mg/dL (70-99) Calcium Level 8.1 mg/dL (8.5-10.1) Test 02/11/17 12:24 Glucose (Fingerstick) 255 mg/dL (70-99) Microbiology 02/05/17 Blood Culture - Final, Complete NO GROWTH AFTER 5 DAYS 02/05/17 Urine Culture - Final, Complete 02/05/17 Urine Culture Result 1 (BISI) - Final, Complete Medications Current Medications Sodium Chloride 1,000 ml @ 620 mls/hr Q1H37M IV Last administered on 10:43; Start 02/05/17 at 09:05; Stop 02/05/17 at 12:05; Status DC Albuterol/ Ipratropium (Duoneb) 6 ml 1X ONCE NEB Last administered on 09:18; Start 02/05/17 at 09:15; Stop 02/05/17 at 09:16; Status DC Meropenem 1 gm/ Sodium Chloride 100 ml @ 200 mls/hr Q8HRS IV ; Start 02/05/17 at 14:00; Status UNV Vancomycin HCl (Vanco Per Pharmacy) 1 each PRN DAILY PRN MC SEE COMMENTS Last administered on 02/10/17 14:10; Start 02/05/17 at 11:30; Stop 02/11/17 at 08 :13; Status DC Levofloxacin/ Dextrose (Levaquin Per Pharmacy) 1 each PRN DAILY PRN MC SEE COMMENTS; Start 02/05/17 at 11:30; Stop 02/09/17 at 08:20; Status DC Vancomycin HCl 2 gm/Dextrose 500 ml @ 250 mls/hr 1X ONCE IV Last administered on 02/05/17 13:20; Start 02/05/17 at 12:00; Stop 02/05/17 at 13 :59; Status DC Meropenem (Merrem) 1 gm 1X ONCE IVP Last administered on 02/05/17 11:37; Start 02/05/17 at 12:00; Stop 02/05/17 at 19:17; Status DC Levofloxacin/ Dextrose 150 ml @ 100 mls/hr 1X ONCE IV Last administered on 11:38; Start 02/05/17 at 12:00; Stop 02/05/17 at 13:29; Status DC Methylprednisolone Sodium Succinate (SOLU-Medrol 125MG VIAL) 125 mg 1X ONCE IV Last administered on 02/05/17 12:06; Start 02/05/17 at 11:45; Stop at 11:59; Status DC Ondansetron HCl (Zofran) 4 mg PRN Q8HRS PRN IV NAUSEA/VOMITING; Start at 12:00; Stop 02/06/17 at 11:59; Status DC Sodium Chloride 1,000 ml @ 75 mls/hr [id number] IV Last administered on 16:24; Start 02/05/17 at 11:46; Stop 02/06/17 at 11:19; Status DC Acetaminophen (Tylenol) 650 mg PRN Q4HRS PRN PO FEVER Last administered on 03:34; Start 02/05/17 at 12:00; Stop 02/06/17 at 11:59; Status DC Albuterol/ Ipratropium (Duoneb) 3 ml RTQID NEB Last administered on 02/06/17 09:33; Start 02/05/17 at 12:00; Stop 02/06/17 at 11:59; Status DC Dobutamine HCl 2000 mg/Dextrose 250 ml @ 4.59 mls/hr CONT IV ; Start 02/05/17 at 12:00; Stop 02/05/17 at 13:17; Status DC Dobutamine HCl/ Dextrose 250 ml @ 18.375 mls/ hr CONT PRN IV SEE I/O RECORD; Start 02/05/17 at 13:15 Meropenem (Merrem) 1 gm Q8HRS IVP Last administered on 02/05/17 21:03; Start 02/05/17 at 21:00; Stop 02/05/17 at 21:53; Status DC Levofloxacin/ Dextrose 150 ml @ 100 mls/hr Q24H IV Last administered on 20:36; Start 02/06/17 at 12:00; Stop 02/09/17 at 08:24; Status DC Vancomycin HCl 1.75 gm/Dextrose/ Sodium Chloride 500 ml @ 250 mls/hr Q18H IV Last administered on 02/07/17 19:48; Start 02/06/17 at 07:00; Stop 02/08/17 at 13:27; Status DC Vancomycin HCl 1 each 1X ONCE MC Last administered on 02/07/17 00:30; Start 02/07/17 at 00:30; Stop 02/07/17 at 00:31; Status DC Methylprednisolone Sodium Succinate (SOLU-Medrol 40MG VIAL) 40 mg Q8HRS IV Last administered on 02/11/17 06:02; Start 02/05/17 at 16:00 Enoxaparin Sodium (Lovenox 40mg Syringe) 40 mg Q24H SQ Last administered on 16:24; Start 02/05/17 at 16:00; Stop 02/05/17 at 21:19; Status DC Aspirin (Children'S Aspirin) 81 mg DAILY PO Last administered on 02/08/17 08: 41; Start 02/06/17 at 09:00 Diltiazem HCl (Cardizem 24hr Cd) 120 mg QHS PO Last administered on 02/06/17 20:43; Start 02/05/17 at 21:00 Ferrous Sulfate (Feosol) 325 mg BID PO Last administered on 02/11/17 12:42; Start 02/05/17 at 21:00 Acetaminophen/ Hydrocodone Bitart (Lortab 7.5/325) 2 tab PRN Q6HRS PRN PO PAIN Last administered on 02/10/17 19:56; Start 02/05/17 at 17:15 Levothyroxine Sodium (Synthroid) 137 mcg DAILYAC PO Last administered on 12:42; Start 02/06/17 at 07:30 Warfarin Sodium (Coumadin) 5 mg DAILY16 PO Last administered on 02/07/17 17: 28; Start 02/05/17 at 22:00; Stop 02/08/17 at 09:53; Status DC Citalopram Hydrobromide (CeleXA) 40 mg DAILY PO Last administered on 12:42; Start 02/06/17 at 09:00 Glimepiride (Amaryl) 4 mg BIDWMEALS PO Last administered on 02/10/17 17:07; Start 02/05/17 at 17:30 Losartan Potassium (Cozaar) 25 mg DAILY PO ; Start 02/06/17 at 09:00; Stop at 11:22; Status DC Atorvastatin Calcium (Lipitor) 80 mg QHS PO Last administered on 02/07/17 21: 29; Start 02/05/17 at 21:00 Insulin Aspart (NovoLOG) 0-12 UNITS QIDACHS SQ Last administered on 02/11/17 12:31; Start 02/05/17 at 18:00 Norepinephrine Bitartrate 250 ml @ 0 mls/hr CONT PRN IV SEE I/O RECORD; Start 02/05/17 at 19:00 Albuterol/ Ipratropium (Duoneb) 3 ml STK-MED ONCE .ROUTE ; Start 02/05/17 at 19 :16; Stop 02/05/17 at 19:17; Status DC Meropenem (Merrem) 1 gm Q8HRS IVP Last administered on 02/08/17 05:33; Start 02/06/17 at 06:00; Stop 02/08/17 at 09:00; Status DC Warfarin Sodium (Coumadin Per Physician) 1 each PRN DAILY PRN MC SEE COMMENTS; Start 02/06/17 at 07:45; Status Cancel Lactobacillus Rhamnosus (Culturelle) 1 cap BID PO Last administered on 12:42; Start 02/06/17 at 09:00 Albuterol/ Ipratropium (Duoneb) 3 ml RTQID NEB Last administered on 02/11/17 12:05; Start 02/06/17 at 16:00 Alprazolam (Xanax) 0.5 mg PRN TID PRN PO ANXIETY / AGITATION Last administered on 02/10/17 19:56; Start 02/06/17 at 17:30 Metformin HCl (Glucophage) 500 mg BIDWMEALS PO Last administered on 02/10/17 17:07; Start 02/07/17 at 12:00 Polyethylene Glycol (miraLAX PACKET) 17 gm PRN DAILY PRN PO CONSTIPATION Last administered on 02/07/17 21:29; Start 02/07/17 at 20:00 Alteplase, Recombinant (Cathflo) 2 mg 1X ONCE INT CAT Last administered on 07:32; Start 02/08/17 at 08:00; Stop 02/08/17 at 08:01; Status DC Pantoprazole Sodium 80 mg/ Sodium Chloride 100 ml @ 10 mls/hr Q10H IV Last administered on 02/11/17 06:02; Start 02/08/17 at 13:30 Vancomycin HCl 1.75 gm/Dextrose/ Sodium Chloride 500 ml @ 250 mls/hr Q18H IV Last administered on 02/11/17 02:15; Start 02/08/17 at 21:00; Stop 02/11/17 at 08:15; Status DC Digoxin (Lanoxin) 500 mcg 1X ONCE IV Last administered on 02/08/17 18:30; Start 02/08/17 at 18:15; Stop 02/08/17 at 18:26; Status DC Digoxin (Lanoxin) 250 mcg 1X ONCE IV Last administered on 02/08/17 19:56; Start 02/08/17 at 19:45; Stop 02/08/17 at 19:46; Status DC Fentanyl Citrate (Fentanyl 2ml Vial) 50 mcg PRN Q3HRS PRN IV PAIN Last administered on 02/08/17 21:09; Start 02/08/17 at 20:30 Albumin Human 500 ml @ 125 mls/hr 1X ONCE IV Last administered on 02/08/17 23:38; Start 02/08/17 at 22:00; Stop 02/09/17 at 01:59; Status DC Phytonadione 10 mg/Sodium Chloride 51 ml @ 102 mls/hr 1X ONCE IV Last administered on 02/09/17 07:24; Start 02/09/17 at 08:00; Stop 02/09/17 at 08 :29; Status DC Throat Lozenges (Chloraseptic) 1 spray PRN Q2HR PRN PO SORE THROAT Last administered on 02/09/17 13:40; Start 02/09/17 at 08:45 Digoxin (Lanoxin) 125 mcg 1X ONCE IV Last administered on 02/10/17 13:02; Start 02/10/17 at 12:15; Stop 02/10/17 at 12:16; Status DC Insulin Aspart (NovoLOG) 6 units Q6HRS SQ Last administered on 02/11/17 06:20 ; Start 02/10/17 at 15:00; Stop 02/11/17 at 11:54; Status DC Sodium Chloride (Saline Mist Nasal) 1 nara PRN Q1HR PRN NS NASAL CONGESTION; Start 02/10/17 at 17:30 Vancomycin HCl 1 each 1X ONCE MC ; Start 02/11/17 at 20:30; Stop 02/11/17 at 20:31; Status Cancel Insulin Aspart (NovoLOG) 10 units Q6HRS SQ Last administered on 02/11/17t 12: 32; Start 02/11/17 at 12:00 Active Scripts Active Reported Ferrous Sulfate 325 Mg Tablet 1 Tab PO BID LAST DOSE GIVEN: DATE:01/08/17 TIME:9:00 a.m. Warfarin Sodium 5 Mg Tablet 1 Tab PO DAILY 30 Days LAST DOSE GIVEN: DATE:01/08/17 TIME:2:00 p.m Levothyroxine Sodium 137 Mcg Tablet 137 Mcg PO DAILYAC LAST DOSE GIVEN: DATE:01/08/17 TIME:7:30 a.m. Furosemide 40 Mg Tablet 40 Mg PO DAILY LAST DOSE GIVEN: DATE:01/07/17 TIME:9:00 a.m. Aspirin 81 Mg Tab.chew 1 Tab PO DAILY LAST DOSE GIVEN: DATE:01/08/17 TIME:9:00 a.m. Hydrocodone-Apap 7.5-325 (Hydrocodone Bit/Acetaminophen) 1 Each Tablet 1-2 Tab PO PRN Q6HRS PRN Took at 12:30 today may take anytime as needed for pain every 4 hours Amaryl (Glimepiride) 4 Mg Tablet 1 Tab PO BID LAST DOSE GIVEN: DATE:01/08/17 TIME:9:00 a.m. Potassium Chloride 20 Meq Tab.er.prt 1 Tab PO WEEKLY Meds not given this hospital admission. May resume home medications as approved by Physician. TIME: 8:30 a.m. NEXT DOSE DUE: DATE: 12-28-15 TIME: 8:30 a.m. Metolazone 5 Mg Tablet 5 Mg PO WEEKLY Meds not given this hospital admission. May resume home medications as approved by Physician. TIME: 8:30 a.m. NEXT DOSE DUE: DATE: 12-28-15 TIME: 8:30 a.m. Lexapro (Escitalopram Oxalate) 10 Mg Tablet 20 Mg PO DAILY LAST DOSE GIVEN: DATE:01/08/17 TIME:9:00 a.m. NEXT DOSE DUE: DATE: 12-28-15 TIME: 8:30 a.m. Cardizem Cd (Diltiazem Hcl) 240 Mg Cap.er.24h 120 Mg PO HS LAST DOSE GIVEN: DATE:01/07/17 TIME:9:00 p.m. NEXT DOSE DUE: DATE: 12-27-15 TIME: 9:00 p.m. Losartan Potassium 100 Mg Tablet 25 Mg PO DAILY LAST DOSE GIVEN: DATE:01/07/17 TIME:9:00 a.m. Crestor (Rosuvastatin Calcium) 40 Mg Tablet 40 Mg PO QHS LAST DOSE GIVEN: DATE:01/07/17 TIME:9:00 p.m. NEXT DOSE DUE: DATE: 12-27-15 TIME: 9:00 p.m. Vitals/I & O Vital Sign - Last 24 Hours 02/10/17 02/10/17 02/10/17 02/10/17 13:25 14:11 15:00 16:06 Temp 97.6 97.6 97.6 97.6 97.6 97.6 Pulse 152 115 95 Resp 18 16 B/P (MAP) 133/87 (102) 108/61 (77) 120/78 (92) Pulse Ox 93 93 93 O2 Delivery Nasal Cannula Nasal Cannula Nasal Cannula Nasal Cannula O2 Flow Rate 2.0 2.0 2.0 3.0 02/10/17 02/10/17 02/10/17 02/10/17 16:07 16:34 17:15 18:07 Temp 97.6 97.6 97.6 97.6 97.6 97.6 Pulse 105 103 98 Resp 16 18 16 B/P (MAP) 115/73 (87) 102/75 (84) 160/68 (98) Pulse Ox 93 94 94 94 O2 Delivery Nasal Cannula Nasal Cannula Nasal Cannula Nasal Cannula O2 Flow Rate 3.0 2.0 2.0 2.0 02/10/17 02/10/17 02/10/17 02/10/17 19:00 19:56 20:00 20:00 Temp 97.8 97.8 Pulse 115 118 Resp 21 21 B/P (MAP) 103/89 (94) 125/76 (92) Pulse Ox 94 94 95 O2 Delivery Nasal Cannula Nasal Cannula Nasal Cannula Nasal Cannula O2 Flow Rate 2.0 2.0 2.0 2.0 02/10/17 02/10/17 02/10/17 02/10/17 20:03 20:56 21:00 22:00 Pulse 100 106 Resp 14 13 B/P (MAP) 127/52 (77) 115/54 (74) Pulse Ox 94 94 99 96 O2 Delivery Nasal Cannula Nasal Cannula Nasal Cannula Nasal Cannula O2 Flow Rate 2.0 2.0 2.0 2.0 02/10/17 02/10/17 02/11/17 02/11/17 23:00 23:59 00:01 01:00 Temp 97.9 97.9 Pulse 90 94 85 Resp 13 12 15 B/P (MAP) 93/57 (69) 110/53 (72) 114/60 (78) Pulse Ox 99 99 98 O2 Delivery Nasal Cannula Nasal Cannula Nasal Cannula Nasal Cannula O2 Flow Rate 2.0 2.0 2.0 2.0 02/11/17 02/11/17 02/11/17 02/11/17 02:00 03:00 04:00 04:00 Temp 97.9 97.9 Pulse 78 86 86 Resp 20 12 14 B/P (MAP) 114/62 (79) 104/59 (74) 108/55 (72) Pulse Ox 100 100 99 O2 Delivery Nasal Cannula Nasal Cannula Nasal Cannula Nasal Cannula O2 Flow Rate 2.0 2.0 2.0 2.0 02/11/17 02/11/17 02/11/17 02/11/17 04:00 05:00 06:00 07:00 Pulse 86 105 94 Resp 19 21 20 B/P (MAP) 114/55 (74) 121/93 (102) 124/60 (81) Pulse Ox 99 98 98 O2 Delivery Nasal Cannula Nasal Cannula Nasal Cannula O2 Flow Rate 2.0 2.0 2.0 2.0 02/11/17 02/11/17 02/11/17 02/11/17 08:00 08:00 08:00 09:00 Temp 98.6 98.6 Pulse 83 122 Resp 20 20 B/P (MAP) 138/70 (92) 122/66 (84) Pulse Ox 98 98 O2 Delivery Nasal Cannula Nasal Cannula Nasal Cannula O2 Flow Rate 2.0 2.0 2.0 2.0 02/11/17 02/11/17 02/11/17 02/11/17 09:06 10:00 11:00 12:00 Temp 98.7 98.7 Pulse 116 120 117 Resp 20 18 22 B/P (MAP) 102/67 (79) 106/72 (83) 105/52 (69) Pulse Ox 97 97 97 96 O2 Delivery Nasal Cannula Nasal Cannula Nasal Cannula Nasal Cannula O2 Flow Rate 3.0 2.0 2.0 2.0 02/11/17 12:07 Pulse Ox 97 O2 Delivery Nasal Cannula O2 Flow Rate 3.0 Intake and Output 02/10/17 02/10/17 02/11/17 14:59 22:59 06:59 Intake Total 200 ml 590 ml 543 ml Output Total 825 ml 1450 ml 685 ml Balance -625 ml -860 ml -142 ml CRYSTAL ARCHULETA MD Feb 11, 2017 13:07
[2017-02-11] MEDS ORDERED: IV 1/2 NORMAL SALINE 1,000 ML IV SCH (14:00)
--- NOTE | 2017-02-11 14:24 | PDOC ---
PULMONARY PROGRESS NOTES Subjective PT FEELS BETTER NOT MORE SOA Vitals Vital Signs Date Time Temp Pulse Resp B/P (MAP) Pulse Ox O2 Delivery O2 Flow Rate FiO2 02/11/17 14:00 124 30 127/65 (85) 96 Nasal Cannula 2.0 02/11/17 12:00 98.7 98.7 ROS: No Nausea, No Chest Pain, No Abdominal Pain, No Increase Cough General: Alert, No acute distress Lungs: Clear Cardiovascular: S1, S2 Abdomen: Soft, Other (obese) Neuro Exam: Alert Extremities: Other (2+edema) Labs Laboratory Tests Test 02/09/17 17:52 02/09/17 17:55 02/09/17 20:39 02/09/17 21:40 Glucose (Fingerstick) 360 mg/dL (70-99) 298 mg/dL (70-99) White Blood Count 17.8 x10^3/uL (4.0-11.0) 14.4 x10^3/uL (4.0-11.0) Red Blood Count 2.39 x10^6/uL (3.50-5.40) 2.68 x10^6/uL (3.50-5.40) Hemoglobin 7.0 g/dL (12.0-15.5) 8.0 g/dL (12.0-15.5) Hematocrit 21.5 % (36.0-47.0) 24.0 % (36.0-47.0) Mean Corpuscular Volume 90 fL (79-100) 90 fL (79-100) Mean Corpuscular Hemoglobin 29 pg (25-35) 30 pg (25-35) Mean Corpuscular Hemoglobin Concent 33 g/dL (31-37) 33 g/dL (31-37) Red Cell Distribution Width 15.6 % (11.5-14.5) 15.0 % (11.5-14.5) Platelet Count 255 x10^3/uL (140-400) 235 x10^3/uL (140-400) Prothrombin Time 18.4 SEC (11.7-14.0) Prothromb Time International Ratio 1.6 (0.8-1.1) Test 02/10/17 00:20 02/10/17 05:50 02/10/17 09:18 02/10/17 11:29 White Blood Count 12.7 x10^3/uL (4.0-11.0) 13.4 x10^3/uL (4.0-11.0) Red Blood Count 2.55 x10^6/uL (3.50-5.40) 2.74 x10^6/uL (3.50-5.40) Hemoglobin 7.6 g/dL (12.0-15.5) 8.1 g/dL (12.0-15.5) Hematocrit 22.7 % (36.0-47.0) 24.5 % (36.0-47.0) Mean Corpuscular Volume 89 fL (79-100) 89 fL (79-100) Mean Corpuscular Hemoglobin 30 pg (25-35) 30 pg (25-35) Mean Corpuscular Hemoglobin Concent 33 g/dL (31-37) 33 g/dL (31-37) Red Cell Distribution Width 15.1 % (11.5-14.5) 15.5 % (11.5-14.5) Platelet Count 213 x10^3/uL (140-400) 232 x10^3/uL (140-400) Prothrombin Time 16.4 SEC (11.7-14.0) 14.7 SEC (11.7-14.0) Prothromb Time International Ratio 1.4 (0.8-1.1) 1.2 (0.8-1.1) Glucose (Fingerstick) 312 mg/dL (70-99) 340 mg/dL (70-99) Test 02/10/17 13:05 02/10/17 17:06 02/10/17 19:44 02/10/17 21:40 Sodium Level 149 mmol/L (136-145) Potassium Level 4.5 mmol/L (3.5-5.1) Chloride Level 107 mmol/L (98-107) Carbon Dioxide Level 35 mmol/L (21-32) Anion Gap 7 (6-14) Blood Urea Nitrogen 45 mg/dL (7-20) Creatinine 0.9 mg/dL (0.6-1.0) Estimated GFR (Cockcroft-Gault) 60.6 Glucose Level 323 mg/dL (70-99) Calcium Level 8.6 mg/dL (8.5-10.1) Glucose (Fingerstick) 280 mg/dL (70-99) 270 mg/dL (70-99) 226 mg/dL (70-99) Test 02/11/17 00:47 02/11/17 06:15 02/11/17 08:56 02/11/17 12:15 Glucose (Fingerstick) 258 mg/dL (70-99) 297 mg/dL (70-99) 285 mg/dL (70-99) White Blood Count 15.1 x10^3/uL (4.0-11.0) Red Blood Count 2.46 x10^6/uL (3.50-5.40) Hemoglobin 7.3 g/dL (12.0-15.5) Hematocrit 22.8 % (36.0-47.0) Mean Corpuscular Volume 93 fL (79-100) Mean Corpuscular Hemoglobin 30 pg (25-35) Mean Corpuscular Hemoglobin Concent 32 g/dL (31-37) Red Cell Distribution Width 16.3 % (11.5-14.5) Platelet Count 251 x10^3/uL (140-400) Sodium Level 149 mmol/L (136-145) Potassium Level 5.2 mmol/L (3.5-5.1) Chloride Level 110 mmol/L (98-107) Carbon Dioxide Level 36 mmol/L (21-32) Anion Gap 3 (6-14) Blood Urea Nitrogen 47 mg/dL (7-20) Creatinine 0.7 mg/dL (0.6-1.0) Estimated GFR (Cockcroft-Gault) 80.9 Glucose Level 273 mg/dL (70-99) Calcium Level 8.1 mg/dL (8.5-10.1) Test 02/11/17 12:24 Glucose (Fingerstick) 255 mg/dL (70-99) Laboratory Tests Test 02/10/17 17:06 02/10/17 19:44 02/10/17 21:40 02/11/17 00:47 Glucose (Fingerstick) 280 mg/dL (70-99) 270 mg/dL (70-99) 226 mg/dL (70-99) 258 mg/dL (70-99) Test 02/11/17 06:15 02/11/17 08:56 02/11/17 12:15 02/11/17 12:24 Glucose (Fingerstick) 297 mg/dL (70-99) 285 mg/dL (70-99) 255 mg/dL (70-99) White Blood Count 15.1 x10^3/uL (4.0-11.0) Red Blood Count 2.46 x10^6/uL (3.50-5.40) Hemoglobin 7.3 g/dL (12.0-15.5) Hematocrit 22.8 % (36.0-47.0) Mean Corpuscular Volume 93 fL (79-100) Mean Corpuscular Hemoglobin 30 pg (25-35) Mean Corpuscular Hemoglobin Concent 32 g/dL (31-37) Red Cell Distribution Width 16.3 % (11.5-14.5) Platelet Count 251 x10^3/uL (140-400) Sodium Level 149 mmol/L (136-145) Potassium Level 5.2 mmol/L (3.5-5.1) Chloride Level 110 mmol/L (98-107) Carbon Dioxide Level 36 mmol/L (21-32) Anion Gap 3 (6-14) Blood Urea Nitrogen 47 mg/dL (7-20) Creatinine 0.7 mg/dL (0.6-1.0) Estimated GFR (Cockcroft-Gault) 80.9 Glucose Level 273 mg/dL (70-99) Calcium Level 8.1 mg/dL (8.5-10.1) Medications Active Scripts Medications Dose Route/Sig Max Daily Dose Days Date Category Dose Instructions Ferrous Sulfate 325 Mg Tablet 1 Tab PO BID 01/08/17 Reported LAST DOSE GIVEN: DATE:01/08/17 TIME:9:00 a.m. Warfarin Sodium 5 Mg Tablet 1 Tab PO DAILY 30 01/08/17 Reported LAST DOSE GIVEN: DATE:01/08/17 TIME:2:00 p.m Levothyroxine Sodium 137 Mcg Tablet 137 Mcg PO DAILYAC 01/04/17 Reported LAST DOSE GIVEN: DATE:01/08/17 TIME:7:30 a.m. Furosemide 40 Mg Tablet 40 Mg PO DAILY 01/04/17 Reported LAST DOSE GIVEN: DATE:01/07/17 TIME:9:00 a.m. Aspirin 81 Mg Tab.chew 1 Tab PO DAILY 11/16/16 Reported LAST DOSE GIVEN: DATE:01/08/17 TIME:9:00 a.m. Hydrocodone-Apap 7.5-325 (Hydrocodone Bit/Acetaminophen) 1 Each Tablet 1-2 Tab PO PRN Q6HRS PRN 12/26/15 Reported Took at 12:30 today may take anytime as needed for pain every 4 hours Amaryl (Glimepiride) 4 Mg Tablet 1 Tab PO BID 12/16/15 Reported LAST DOSE GIVEN: DATE:01/08/17 TIME:9:00 a.m. Potassium Chloride 20 Meq Tab.er.prt 1 Tab PO WEEKLY 04/17/15 Reported Meds not given this hospital admission. May resume home medications as approved by Physician. TIME: 8:30 a.m. NEXT DOSE DUE: DATE: 12-28-15 TIME: 8:30 a.m. Metolazone 5 Mg Tablet 5 Mg PO WEEKLY 04/16/15 Reported Meds not given this hospital admission. May resume home medications as approved by Physician. TIME: 8:30 a.m. NEXT DOSE DUE: DATE: 12-28-15 TIME: 8:30 a.m. Lexapro (Escitalopram Oxalate) 10 Mg Tablet 20 Mg PO DAILY 05/01/13 Reported LAST DOSE GIVEN: DATE:01/08/17 TIME:9:00 a.m. NEXT DOSE DUE: DATE: 12-28-15 TIME: 8:30 a.m. Cardizem Cd (Diltiazem Hcl) 240 Mg Cap.er.24h 120 Mg PO HS 05/01/13 Reported LAST DOSE GIVEN: DATE:01/07/17 TIME:9:00 p.m. NEXT DOSE DUE: DATE: 12-27-15 TIME: 9:00 p.m. Losartan Potassium 100 Mg Tablet 25 Mg PO DAILY 05/01/13 Reported LAST DOSE GIVEN: DATE:01/07/17 TIME:9:00 a.m. Crestor (Rosuvastatin Calcium) 40 Mg Tablet 40 Mg PO QHS 05/01/13 Reported LAST DOSE GIVEN: DATE:01/07/17 TIME:9:00 p.m. NEXT DOSE DUE: DATE: 12-27-15 TIME: 9:00 p.m. Impression . 1. Acute on chronic hypercapnic respiratory failure multifactorial 2. Sepsis per ID 3. JAYLIN 4. COPD 5. Moderate to severe protein-calorie malnutrition. 6. Abnormal chest x-ray 7. Acute Blood loss anemia 8. Coagulopathy 9. Morbid Obesity 10. Dysphagia Plan . OK TO TRANSFER FOLLOW DYSPHAGIA DIET NO ON 3 LITERS PRN BIPAP UP TO CHAIR REPEAT CXR CCT 30 MINUTES HARLEEN MENDOZA MD Feb 11, 2017 14:24
--- NOTE | 2017-02-11 15:48 | RAD ---
Indication: CHF. Time of exam 1534 hours. Correlation is made with prior chest from 02/07/2017. The heart is enlarged but stable. There are changes of median sternotomy. The right upper extremity PICC line has the tip overlying the SVC. No infiltrate or failure is detected. No effusion or pneumothorax is seen. Impression: No acute cardiopulmonary process is detected.
[2017-02-11 16:58] LABS: INR 1.6 (0.8-1.1)
--- NOTE | 2017-02-11 17:06 | PDOC ---
PROGRESS NOTES Subjective Subjective Patient feeling better today slightly. Patient still wants water but unfortunately failed swallow study with thin liquids. Patient is taking thickened liquids at this time. Patient's hemoglobin continues to drop. Patient' s labs show evidence of dehydration. Rectal tube shows less acute bleeding. Objective Objective Vital Signs Date Time Temp Pulse Resp B/P (MAP) Pulse Ox O2 Delivery O2 Flow Rate FiO2 02/11/17 16:30 97 Nasal Cannula 3.0 02/11/17 16:00 98.6 114 22 127/75 (92) 98.6 Intake and Output 02/11/17 07:00 Intake Total 1333 ml Output Total 2910 ml Balance -1577 ml Intake Oral 790 ml IV Total 543 ml Output Urine Total 2710 ml Stool Total 200 ml Physical Exam Abdomen: Normal bowel sounds (irregularly irregular) Extremities: Other (2-3+ edema hands and lower extremities) General: Other (patient intermittently confused continues to ask for clear liquids) Lungs: Other (coarse breath sounds bilaterally) Assessment Assessment Problems Medical Problems: (1) Acute on chronic congestive heart failure Status: Acute (2) COPD (chronic obstructive pulmonary disease) Status: Acute (3) Healthcare-associated pneumonia Status: Acute (4) Morbid obesity Status: Acute (5) Sepsis Status: Acute (6) Severe protein-calorie malnutrition Status: Acute (7) Urinary tract infection Status: Acute 1. Acute on chronic respiratory failure. 2. Anemia due to GI bleed 3. Healthcare acquired pneumonia. 4. Sepsis syndrome 5. Chronic obstructive pulmonary disease with exacerbation. 6. Atrial fibrillation with rapid ventricular response. 7. Obstructive sleep apnea. 8. Aortic stenosis. 9. Morbid obesity. 10.Hypertension. 11.Type 2 diabetes. 12.Hypothyroidism. 13.Generalized anxiety disorder. 14.Severe protein-calorie malnutrition. 15.Urinary tract infection. 16. History of diastolic congestive heart failure possibly due to cor pulmonale 17.Status post recent left total knee revision 18.coagulopathy on coumadin 19.Blood culture + coag neg staph 1/6bottles, possible contaminant- see above 20.Pulmonary HTN 21 Chronic diastolic CHF Plan Plan of Care Continue to monitor CBC and INR. Start IV fluids and follow BmP Start therapy when patient stabilizes. Comment Review of Relevant I have reviewed the following items donald (where applicable) has been applied. Labs Laboratory Tests Test 02/09/17 17:52 02/09/17 17:55 02/09/17 20:39 02/09/17 21:40 Glucose (Fingerstick) 360 mg/dL (70-99) 298 mg/dL (70-99) White Blood Count 17.8 x10^3/uL (4.0-11.0) 14.4 x10^3/uL (4.0-11.0) Red Blood Count 2.39 x10^6/uL (3.50-5.40) 2.68 x10^6/uL (3.50-5.40) Hemoglobin 7.0 g/dL (12.0-15.5) 8.0 g/dL (12.0-15.5) Hematocrit 21.5 % (36.0-47.0) 24.0 % (36.0-47.0) Mean Corpuscular Volume 90 fL (79-100) 90 fL (79-100) Mean Corpuscular Hemoglobin 29 pg (25-35) 30 pg (25-35) Mean Corpuscular Hemoglobin Concent 33 g/dL (31-37) 33 g/dL (31-37) Red Cell Distribution Width 15.6 % (11.5-14.5) 15.0 % (11.5-14.5) Platelet Count 255 x10^3/uL (140-400) 235 x10^3/uL (140-400) Prothrombin Time 18.4 SEC (11.7-14.0) Prothromb Time International Ratio 1.6 (0.8-1.1) Test 02/10/17 00:20 02/10/17 05:50 02/10/17 09:18 02/10/17 11:29 White Blood Count 12.7 x10^3/uL (4.0-11.0) 13.4 x10^3/uL (4.0-11.0) Red Blood Count 2.55 x10^6/uL (3.50-5.40) 2.74 x10^6/uL (3.50-5.40) Hemoglobin 7.6 g/dL (12.0-15.5) 8.1 g/dL (12.0-15.5) Hematocrit 22.7 % (36.0-47.0) 24.5 % (36.0-47.0) Mean Corpuscular Volume 89 fL (79-100) 89 fL (79-100) Mean Corpuscular Hemoglobin 30 pg (25-35) 30 pg (25-35) Mean Corpuscular Hemoglobin Concent 33 g/dL (31-37) 33 g/dL (31-37) Red Cell Distribution Width 15.1 % (11.5-14.5) 15.5 % (11.5-14.5) Platelet Count 213 x10^3/uL (140-400) 232 x10^3/uL (140-400) Prothrombin Time 16.4 SEC (11.7-14.0) 14.7 SEC (11.7-14.0) Prothromb Time International Ratio 1.4 (0.8-1.1) 1.2 (0.8-1.1) Glucose (Fingerstick) 312 mg/dL (70-99) 340 mg/dL (70-99) Test 02/10/17 13:05 02/10/17 17:06 02/10/17 19:44 02/10/17 21:40 Sodium Level 149 mmol/L (136-145) Potassium Level 4.5 mmol/L (3.5-5.1) Chloride Level 107 mmol/L (98-107) Carbon Dioxide Level 35 mmol/L (21-32) Anion Gap 7 (6-14) Blood Urea Nitrogen 45 mg/dL (7-20) Creatinine 0.9 mg/dL (0.6-1.0) Estimated GFR (Cockcroft-Gault) 60.6 Glucose Level 323 mg/dL (70-99) Calcium Level 8.6 mg/dL (8.5-10.1) Glucose (Fingerstick) 280 mg/dL (70-99) 270 mg/dL (70-99) 226 mg/dL (70-99) Test 02/11/17 00:47 02/11/17 06:15 02/11/17 08:56 02/11/17 12:15 Glucose (Fingerstick) 258 mg/dL (70-99) 297 mg/dL (70-99) 285 mg/dL (70-99) White Blood Count 15.1 x10^3/uL (4.0-11.0) Red Blood Count 2.46 x10^6/uL (3.50-5.40) Hemoglobin 7.3 g/dL (12.0-15.5) Hematocrit 22.8 % (36.0-47.0) Mean Corpuscular Volume 93 fL (79-100) Mean Corpuscular Hemoglobin 30 pg (25-35) Mean Corpuscular Hemoglobin Concent 32 g/dL (31-37) Red Cell Distribution Width 16.3 % (11.5-14.5) Platelet Count 251 x10^3/uL (140-400) Sodium Level 149 mmol/L (136-145) Potassium Level 5.2 mmol/L (3.5-5.1) Chloride Level 110 mmol/L (98-107) Carbon Dioxide Level 36 mmol/L (21-32) Anion Gap 3 (6-14) Blood Urea Nitrogen 47 mg/dL (7-20) Creatinine 0.7 mg/dL (0.6-1.0) Estimated GFR (Cockcroft-Gault) 80.9 Glucose Level 273 mg/dL (70-99) Calcium Level 8.1 mg/dL (8.5-10.1) Test 02/11/17 12:24 02/11/17 16:45 Glucose (Fingerstick) 255 mg/dL (70-99) Prothrombin Time 18.0 SEC (11.7-14.0) Prothromb Time International Ratio 1.6 (0.8-1.1) Laboratory Tests Test 02/10/17 17:06 02/10/17 19:44 02/10/17 21:40 02/11/17 00:47 Glucose (Fingerstick) 280 mg/dL (70-99) 270 mg/dL (70-99) 226 mg/dL (70-99) 258 mg/dL (70-99) Test 02/11/17 06:15 02/11/17 08:56 02/11/17 12:15 02/11/17 12:24 Glucose (Fingerstick) 297 mg/dL (70-99) 285 mg/dL (70-99) 255 mg/dL (70-99) White Blood Count 15.1 x10^3/uL (4.0-11.0) Red Blood Count 2.46 x10^6/uL (3.50-5.40) Hemoglobin 7.3 g/dL (12.0-15.5) Hematocrit 22.8 % (36.0-47.0) Mean Corpuscular Volume 93 fL (79-100) Mean Corpuscular Hemoglobin 30 pg (25-35) Mean Corpuscular Hemoglobin Concent 32 g/dL (31-37) Red Cell Distribution Width 16.3 % (11.5-14.5) Platelet Count 251 x10^3/uL (140-400) Sodium Level 149 mmol/L (136-145) Potassium Level 5.2 mmol/L (3.5-5.1) Chloride Level 110 mmol/L (98-107) Carbon Dioxide Level 36 mmol/L (21-32) Anion Gap 3 (6-14) Blood Urea Nitrogen 47 mg/dL (7-20) Creatinine 0.7 mg/dL (0.6-1.0) Estimated GFR (Cockcroft-Gault) 80.9 Glucose Level 273 mg/dL (70-99) Calcium Level 8.1 mg/dL (8.5-10.1) Test 02/11/17 16:45 Prothrombin Time 18.0 SEC (11.7-14.0) Prothromb Time International Ratio 1.6 (0.8-1.1) Microbiology 02/05/17 Blood Culture - Final, Complete NO GROWTH AFTER 5 DAYS 02/05/17 Urine Culture - Final, Complete 02/05/17 Urine Culture Result 1 (BISI) - Final, Complete Medications Current Medications Sodium Chloride 1,000 ml @ 620 mls/hr Q1H37M IV Last administered on 10:43; Start 02/05/17 at 09:05; Stop 02/05/17 at 12:05; Status DC Albuterol/ Ipratropium (Duoneb) 6 ml 1X ONCE NEB Last administered on 09:18; Start 02/05/17 at 09:15; Stop 02/05/17 at 09:16; Status DC Meropenem 1 gm/ Sodium Chloride 100 ml @ 200 mls/hr Q8HRS IV ; Start 02/05/17 at 14:00; Status UNV Vancomycin HCl (Vanco Per Pharmacy) 1 each PRN DAILY PRN MC SEE COMMENTS Last administered on 02/10/17 14:10; Start 02/05/17 at 11:30; Stop 02/11/17 at 08 :13; Status DC Levofloxacin/ Dextrose (Levaquin Per Pharmacy) 1 each PRN DAILY PRN MC SEE COMMENTS; Start 02/05/17 at 11:30; Stop 02/09/17 at 08:20; Status DC Vancomycin HCl 2 gm/Dextrose 500 ml @ 250 mls/hr 1X ONCE IV Last administered on 02/05/17 13:20; Start 02/05/17 at 12:00; Stop 02/05/17 at 13 :59; Status DC Meropenem (Merrem) 1 gm 1X ONCE IVP Last administered on 02/05/17 11:37; Start 02/05/17 at 12:00; Stop 02/05/17 at 19:17; Status DC Levofloxacin/ Dextrose 150 ml @ 100 mls/hr 1X ONCE IV Last administered on 11:38; Start 02/05/17 at 12:00; Stop 02/05/17 at 13:29; Status DC Methylprednisolone Sodium Succinate (SOLU-Medrol 125MG VIAL) 125 mg 1X ONCE IV Last administered on 02/05/17 12:06; Start 02/05/17 at 11:45; Stop at 11:59; Status DC Ondansetron HCl (Zofran) 4 mg PRN Q8HRS PRN IV NAUSEA/VOMITING; Start at 12:00; Stop 02/06/17 at 11:59; Status DC Sodium Chloride 1,000 ml @ 75 mls/hr [id number] IV Last administered on 16:24; Start 02/05/17 at 11:46; Stop 02/06/17 at 11:19; Status DC Acetaminophen (Tylenol) 650 mg PRN Q4HRS PRN PO FEVER Last administered on 03:34; Start 02/05/17 at 12:00; Stop 02/06/17 at 11:59; Status DC Albuterol/ Ipratropium (Duoneb) 3 ml RTQID NEB Last administered on 02/06/17 09:33; Start 02/05/17 at 12:00; Stop 02/06/17 at 11:59; Status DC Dobutamine HCl 2000 mg/Dextrose 250 ml @ 4.59 mls/hr CONT IV ; Start 02/05/17 at 12:00; Stop 02/05/17 at 13:17; Status DC Dobutamine HCl/ Dextrose 250 ml @ 18.375 mls/ hr CONT PRN IV SEE I/O RECORD; Start 02/05/17 at 13:15 Meropenem (Merrem) 1 gm Q8HRS IVP Last administered on 02/05/17 21:03; Start 02/05/17 at 21:00; Stop 02/05/17 at 21:53; Status DC Levofloxacin/ Dextrose 150 ml @ 100 mls/hr Q24H IV Last administered on 20:36; Start 02/06/17 at 12:00; Stop 02/09/17 at 08:24; Status DC Vancomycin HCl 1.75 gm/Dextrose/ Sodium Chloride 500 ml @ 250 mls/hr Q18H IV Last administered on 02/07/17 19:48; Start 02/06/17 at 07:00; Stop 02/08/17 at 13:27; Status DC Vancomycin HCl 1 each 1X ONCE MC Last administered on 02/07/17 00:30; Start 02/07/17 at 00:30; Stop 02/07/17 at 00:31; Status DC Methylprednisolone Sodium Succinate (SOLU-Medrol 40MG VIAL) 40 mg Q8HRS IV Last administered on 02/11/17 06:02; Start 02/05/17 at 16:00; Stop 02/11/17 at 13:17; Status DC Enoxaparin Sodium (Lovenox 40mg Syringe) 40 mg Q24H SQ Last administered on 16:24; Start 02/05/17 at 16:00; Stop 02/05/17 at 21:19; Status DC Aspirin (Children'S Aspirin) 81 mg DAILY PO Last administered on 02/08/17 08: 41; Start 02/06/17 at 09:00 Diltiazem HCl (Cardizem 24hr Cd) 120 mg QHS PO Last administered on 02/06/17 20:43; Start 02/05/17 at 21:00 Ferrous Sulfate (Feosol) 325 mg BID PO Last administered on 02/11/17 12:42; Start 02/05/17 at 21:00 Acetaminophen/ Hydrocodone Bitart (Lortab 7.5/325) 2 tab PRN Q6HRS PRN PO PAIN Last administered on 02/10/17 19:56; Start 02/05/17 at 17:15 Levothyroxine Sodium (Synthroid) 137 mcg DAILYAC PO Last administered on 12:42; Start 02/06/17 at 07:30 Warfarin Sodium (Coumadin) 5 mg DAILY16 PO Last administered on 02/07/17 17: 28; Start 02/05/17 at 22:00; Stop 02/08/17 at 09:53; Status DC Citalopram Hydrobromide (CeleXA) 40 mg DAILY PO Last administered on 12:42; Start 02/06/17 at 09:00 Glimepiride (Amaryl) 4 mg BIDWMEALS PO Last administered on 02/10/17 17:07; Start 02/05/17 at 17:30 Losartan Potassium (Cozaar) 25 mg DAILY PO ; Start 02/06/17 at 09:00; Stop at 11:22; Status DC Atorvastatin Calcium (Lipitor) 80 mg QHS PO Last administered on 02/07/17 21: 29; Start 02/05/17 at 21:00 Insulin Aspart (NovoLOG) 0-12 UNITS QIDACHS SQ Last administered on 02/11/17 12:31; Start 02/05/17 at 18:00 Norepinephrine Bitartrate 250 ml @ 0 mls/hr CONT PRN IV SEE I/O RECORD; Start 02/05/17 at 19:00 Albuterol/ Ipratropium (Duoneb) 3 ml STK-MED ONCE .ROUTE ; Start 02/05/17 at 19 :16; Stop 02/05/17 at 19:17; Status DC Meropenem (Merrem) 1 gm Q8HRS IVP Last administered on 02/08/17 05:33; Start 02/06/17 at 06:00; Stop 02/08/17 at 09:00; Status DC Warfarin Sodium (Coumadin Per Physician) 1 each PRN DAILY PRN MC SEE COMMENTS; Start 02/06/17 at 07:45; Status Cancel Lactobacillus Rhamnosus (Culturelle) 1 cap BID PO Last administered on 12:42; Start 02/06/17 at 09:00 Albuterol/ Ipratropium (Duoneb) 3 ml RTQID NEB Last administered on 02/11/17 16:28; Start 02/06/17 at 16:00 Alprazolam (Xanax) 0.5 mg PRN TID PRN PO ANXIETY / AGITATION Last administered on 02/10/17 19:56; Start 02/06/17 at 17:30 Metformin HCl (Glucophage) 500 mg BIDWMEALS PO Last administered on 02/10/17 17:07; Start 02/07/17 at 12:00 Polyethylene Glycol (miraLAX PACKET) 17 gm PRN DAILY PRN PO CONSTIPATION Last administered on 02/07/17 21:29; Start 02/07/17 at 20:00 Alteplase, Recombinant (Cathflo) 2 mg 1X ONCE INT CAT Last administered on 07:32; Start 02/08/17 at 08:00; Stop 02/08/17 at 08:01; Status DC Pantoprazole Sodium 80 mg/ Sodium Chloride 100 ml @ 10 mls/hr Q10H IV Last administered on 02/11/17 06:02; Start 02/08/17 at 13:30 Vancomycin HCl 1.75 gm/Dextrose/ Sodium Chloride 500 ml @ 250 mls/hr Q18H IV Last administered on 02/11/17 02:15; Start 02/08/17 at 21:00; Stop 02/11/17 at 08:15; Status DC Digoxin (Lanoxin) 500 mcg 1X ONCE IV Last administered on 02/08/17 18:30; Start 02/08/17 at 18:15; Stop 02/08/17 at 18:26; Status DC Digoxin (Lanoxin) 250 mcg 1X ONCE IV Last administered on 02/08/17 19:56; Start 02/08/17 at 19:45; Stop 02/08/17 at 19:46; Status DC Fentanyl Citrate (Fentanyl 2ml Vial) 50 mcg PRN Q3HRS PRN IV PAIN Last administered on 02/08/17 21:09; Start 02/08/17 at 20:30 Albumin Human 500 ml @ 125 mls/hr 1X ONCE IV Last administered on 02/08/17 23:38; Start 02/08/17 at 22:00; Stop 02/09/17 at 01:59; Status DC Phytonadione 10 mg/Sodium Chloride 51 ml @ 102 mls/hr 1X ONCE IV Last administered on 02/09/17 07:24; Start 02/09/17 at 08:00; Stop 02/09/17 at 08 :29; Status DC Throat Lozenges (Chloraseptic) 1 spray PRN Q2HR PRN PO SORE THROAT Last administered on 02/09/17 13:40; Start 02/09/17 at 08:45 Digoxin (Lanoxin) 125 mcg 1X ONCE IV Last administered on 02/10/17 13:02; Start 02/10/17 at 12:15; Stop 02/10/17 at 12:16; Status DC Insulin Aspart (NovoLOG) 6 units Q6HRS SQ Last administered on 02/11/17 06:20 ; Start 02/10/17 at 15:00; Stop 02/11/17 at 11:54; Status DC Sodium Chloride (Saline Mist Nasal) 1 nara PRN Q1HR PRN NS NASAL CONGESTION; Start 02/10/17 at 17:30 Vancomycin HCl 1 each 1X ONCE MC ; Start 02/11/17 at 20:30; Stop 02/11/17 at 20:31; Status Cancel Insulin Aspart (NovoLOG) 10 units Q6HRS SQ Last administered on 02/11/17 12: 32; Start 02/11/17 at 12:00 Methylprednisolone Sodium Succinate (SOLU-Medrol 40MG VIAL) 40 mg DAILY IV ; Start 02/12/17 at 09:00 Sodium Chloride 1,000 ml @ 85 mls/hr [id number] IV Last administered on 14:21; Start 02/11/17 at 14:00; Stop 02/12/17 at 01:45 Active Scripts Active Reported Ferrous Sulfate 325 Mg Tablet 1 Tab PO BID LAST DOSE GIVEN: DATE:01/08/17 TIME:9:00 a.m. Warfarin Sodium 5 Mg Tablet 1 Tab PO DAILY 30 Days LAST DOSE GIVEN: DATE:01/08/17 TIME:2:00 p.m Levothyroxine Sodium 137 Mcg Tablet 137 Mcg PO DAILYAC LAST DOSE GIVEN: DATE:01/08/17 TIME:7:30 a.m. Furosemide 40 Mg Tablet 40 Mg PO DAILY LAST DOSE GIVEN: DATE:01/07/17 TIME:9:00 a.m. Aspirin 81 Mg Tab.chew 1 Tab PO DAILY LAST DOSE GIVEN: DATE:01/08/17 TIME:9:00 a.m. Hydrocodone-Apap 7.5-325 (Hydrocodone Bit/Acetaminophen) 1 Each Tablet 1-2 Tab PO PRN Q6HRS PRN Took at 12:30 today may take anytime as needed for pain every 4 hours Amaryl (Glimepiride) 4 Mg Tablet 1 Tab PO BID LAST DOSE GIVEN: DATE:01/08/17 TIME:9:00 a.m. Potassium Chloride 20 Meq Tab.er.prt 1 Tab PO WEEKLY Meds not given this hospital admission. May resume home medications as approved by Physician. TIME: 8:30 a.m. NEXT DOSE DUE: DATE: 12-28-15 TIME: 8:30 a.m. Metolazone 5 Mg Tablet 5 Mg PO WEEKLY Meds not given this hospital admission. May resume home medications as approved by Physician. TIME: 8:30 a.m. NEXT DOSE DUE: DATE: 12-28-15 TIME: 8:30 a.m. Lexapro (Escitalopram Oxalate) 10 Mg Tablet 20 Mg PO DAILY LAST DOSE GIVEN: DATE:01/08/17 TIME:9:00 a.m. NEXT DOSE DUE: DATE: 12-28-15 TIME: 8:30 a.m. Cardizem Cd (Diltiazem Hcl) 240 Mg Cap.er.24h 120 Mg PO HS LAST DOSE GIVEN: DATE:01/07/17 TIME:9:00 p.m. NEXT DOSE DUE: DATE: 12-27-15 TIME: 9:00 p.m. Losartan Potassium 100 Mg Tablet 25 Mg PO DAILY LAST DOSE GIVEN: DATE:01/07/17 TIME:9:00 a.m. Crestor (Rosuvastatin Calcium) 40 Mg Tablet 40 Mg PO QHS LAST DOSE GIVEN: DATE:01/07/17 TIME:9:00 p.m. NEXT DOSE DUE: DATE: 12-27-15 TIME: 9:00 p.m. Vitals/I & O Vital Sign - Last 24 Hours 02/10/17 02/10/17 02/10/17 02/10/17 17:15 18:07 19:00 19:56 Temp 97.6 97.6 97.6 97.6 Pulse 103 98 115 Resp 18 16 21 B/P (MAP) 102/75 (84) 160/68 (98) 103/89 (94) Pulse Ox 94 94 94 94 O2 Delivery Nasal Cannula Nasal Cannula Nasal Cannula Nasal Cannula O2 Flow Rate 2.0 2.0 2.0 2.0 02/10/17 02/10/17 02/10/17 02/10/17 20:00 20:00 20:03 20:56 Temp 97.8 97.8 Pulse 118 Resp 21 B/P (MAP) 125/76 (92) Pulse Ox 95 94 94 O2 Delivery Nasal Cannula Nasal Cannula Nasal Cannula Nasal Cannula O2 Flow Rate 2.0 2.0 2.0 2.0 02/10/17 02/10/17 02/10/17 02/10/17 21:00 22:00 23:00 23:59 Pulse 100 106 90 Resp 14 13 13 B/P (MAP) 127/52 (77) 115/54 (74) 93/57 (69) Pulse Ox 99 96 99 O2 Delivery Nasal Cannula Nasal Cannula Nasal Cannula Nasal Cannula O2 Flow Rate 2.0 2.0 2.0 2.0 02/11/17 02/11/17 02/11/17 02/11/17 00:01 01:00 02:00 03:00 Temp 97.9 97.9 Pulse 94 85 78 86 Resp 12 15 20 12 B/P (MAP) 110/53 (72) 114/60 (78) 114/62 (79) 104/59 (74) Pulse Ox 99 98 100 100 O2 Delivery Nasal Cannula Nasal Cannula Nasal Cannula Nasal Cannula O2 Flow Rate 2.0 2.0 2.0 2.0 02/11/17 02/11/17 02/11/17 02/11/17 04:00 04:00 04:00 05:00 Temp 97.9 97.9 Pulse 86 86 Resp 14 19 B/P (MAP) 108/55 (72) 114/55 (74) Pulse Ox 99 99 O2 Delivery Nasal Cannula Nasal Cannula Nasal Cannula O2 Flow Rate 2.0 2.0 2.0 2.0 02/11/17 02/11/17 02/11/17 02/11/17 06:00 07:00 08:00 08:00 Temp 98.6 98.6 Pulse 105 94 83 Resp 21 20 20 B/P (MAP) 121/93 (102) 124/60 (81) 138/70 (92) Pulse Ox 98 98 98 O2 Delivery Nasal Cannula Nasal Cannula Nasal Cannula Nasal Cannula O2 Flow Rate 2.0 2.0 2.0 2.0 02/11/17 02/11/17 02/11/17 02/11/17 08:00 09:00 09:06 10:00 Pulse 122 116 Resp 20 20 B/P (MAP) 122/66 (84) 102/67 (79) Pulse Ox 98 97 97 O2 Delivery Nasal Cannula Nasal Cannula Nasal Cannula O2 Flow Rate 2.0 2.0 3.0 2.0 02/11/17 02/11/17 02/11/17 02/11/17 11:00 12:00 12:00 12:07 Temp 98.7 98.7 Pulse 120 117 Resp 18 22 B/P (MAP) 106/72 (83) 105/52 (69) Pulse Ox 97 96 97 O2 Delivery Nasal Cannula Nasal Cannula Nasal Cannula O2 Flow Rate 2.0 2.0 2.0 3.0 02/11/17 02/11/17 02/11/17 02/11/17 13:00 14:00 15:00 16:00 Temp 98.6 98.6 Pulse 132 124 125 114 Resp 24 30 22 22 B/P (MAP) 132/81 (98) 127/65 (85) 116/50 (72) 127/75 (92) Pulse Ox 96 96 96 98 O2 Delivery Nasal Cannula Nasal Cannula Nasal Cannula Nasal Cannula O2 Flow Rate 2.0 2.0 2.0 2.0 02/11/17 02/11/17 16:00 16:30 Pulse Ox 97 O2 Delivery Nasal Cannula O2 Flow Rate 2.0 3.0 Intake and Output 02/10/17 02/10/17 02/11/17 15:00 23:00 07:00 Intake Total 200 ml 590 ml 543 ml Output Total 625 ml 1550 ml 735 ml Balance -425 ml -960 ml -192 ml JUAN COOK MD Feb 11, 2017 17:06
--- NOTE | 2017-02-11 17:24 | PDOC ---
Subjective: Subjective: Wants ice chips, knee hurts. Objective: Objective: Per RN - on dysphagia diet, had coughing w/ liquids. Vital Signs: Vital Signs Date Time Temp Pulse Resp B/P (MAP) Pulse Ox O2 Delivery O2 Flow Rate FiO2 02/11/17 16:30 97 Nasal Cannula 3.0 02/11/17 16:00 98.6 114 22 127/75 (92) 98.6 Labs: Laboratory Tests Test 02/10/17 19:44 02/10/17 21:40 02/11/17 00:47 02/11/17 06:15 Glucose (Fingerstick) 270 mg/dL 226 mg/dL 258 mg/dL 297 mg/dL Test 02/11/17 08:56 02/11/17 12:15 02/11/17 12:24 02/11/17 16:45 Glucose (Fingerstick) 285 mg/dL 255 mg/dL White Blood Count 15.1 x10^3/uL Red Blood Count 2.46 x10^6/uL Hemoglobin 7.3 g/dL Hematocrit 22.8 % Mean Corpuscular Volume 93 fL Mean Corpuscular Hemoglobin 30 pg Mean Corpuscular Hemoglobin Concent 32 g/dL Red Cell Distribution Width 16.3 % Platelet Count 251 x10^3/uL Sodium Level 149 mmol/L Potassium Level 5.2 mmol/L Chloride Level 110 mmol/L Carbon Dioxide Level 36 mmol/L Anion Gap 3 Blood Urea Nitrogen 47 mg/dL Creatinine 0.7 mg/dL Estimated GFR (Cockcroft-Gault) 80.9 Glucose Level 273 mg/dL Calcium Level 8.1 mg/dL Prothrombin Time 18.0 SEC Prothromb Time International Ratio 1.6 Imaging: CXR Impression: No acute cardiopulmonary process is detected. PE: GEN: NAD LUNGS: clear HEART: tachycardic ABD: S/ND/NT NEURO/PSYCH: A & O 3 A/P: Anemia, dark stools, Coumadin coagulopathy -- Hgb in 7-8s, better w/ lower INR. C Diff still pending. Keep on PPI. ARBEN PEREZ Feb 11, 2017 17:24
[2017-02-11] MEDS ORDERED: POLYVINYL ALCOHOL 1.4% OPHTH SOLUTION 15ML BOTTLE. OU PRN (19:15)
[2017-02-11] MEDS: ALPRAZolam 0.5 MG TABLET PO PRN (22:14)
[2017-02-11] MEDS: ATORVASTATIN CALCIUM 40 MG TABLET. PO SCH (22:15)
[2017-02-12] VITALS (36 sets, daily range): BP systolic 68–195; BP diastolic 49–88
[2017-02-12] MEDS: INSULIN ASPART 300 UNITS/3 ML INSULN.PEN SQ SCH ×9 (06:00→23:52)
[2017-02-12 07:04] LABS: RED BLOOD COUNT 2.25 x10^6/uL (3.50-5.40); RED CELL DISTRIBUTION WIDTH 16.6 % (11.5-14.5); WHITE BLOOD COUNT 14.7 x10^3/uL (4.0-11.0)
[2017-02-12 07:15] LABS: CALCIUM 8.5 mg/dL (8.5-10.1); CREATININE 0.7 mg/dL (0.6-1.0); GFR 80.9; POTASSIUM 4.6 mmol/L (3.5-5.1)
[2017-02-12 07:22] LABS: HEMATOCRIT 20.9 % (36.0-47.0); HEMOGLOBIN 6.7 g/dL (12.0-15.5)
[2017-02-12 07:42] LABS: INR 1.8 (0.8-1.1); PROTHROMBIN TIME PATIENT 19.5 SEC (11.7-14.0)
--- NOTE | 2017-02-12 08:16 | PDOC ---
Infectious Disease Note Subjective Subjective pt coughing ,dry, says feels ok, no n/v/abdo pain/sob Lt knee pain resolved had 3 units PRBCs yesterday ROS ROS GEN: Denies fevers, chills, sweats HEENT: Denies blurred vision, sore throat CV: Denies chest pain RESP: Denies shortness of air, cough GI: Denies n/v/d NEURO: Denies confusion, dizziness MSK: Denies weakness, joint pain/swelling Vital Sign Vital Signs Vital Signs Date Time Temp Pulse Resp B/P (MAP) Pulse Ox O2 Delivery O2 Flow Rate FiO2 02/12/17 06:00 119 21 100/58 (72) 93 Nasal Cannula 2.0 02/12/17 04:00 98.3 98.3 Physical Exam PHYSICAL EXAM GEN: fatigued , alert awake HEENT: oral mucosa dry, no icterus Cardiac: irregular, tachycardia Lungs:dec bs at bases Abd: soft, non distended, nontender, no rebound , no guarding Ext: 2+ pitting edema LE bilaterally, chronic venous stasis changes RLE, erythema in left knee and LLE has completely resolved Neuro: grossly nonfocal Labs Lab Laboratory Tests Test 02/11/17 08:56 02/11/17 12:15 02/11/17 12:24 02/11/17 16:45 Glucose (Fingerstick) 285 mg/dL (70-99) 255 mg/dL (70-99) White Blood Count 15.1 x10^3/uL (4.0-11.0) Red Blood Count 2.46 x10^6/uL (3.50-5.40) Hemoglobin 7.3 g/dL (12.0-15.5) Hematocrit 22.8 % (36.0-47.0) Mean Corpuscular Volume 93 fL (79-100) Mean Corpuscular Hemoglobin 30 pg (25-35) Mean Corpuscular Hemoglobin Concent 32 g/dL (31-37) Red Cell Distribution Width 16.3 % (11.5-14.5) Platelet Count 251 x10^3/uL (140-400) Sodium Level 149 mmol/L (136-145) Potassium Level 5.2 mmol/L (3.5-5.1) Chloride Level 110 mmol/L (98-107) Carbon Dioxide Level 36 mmol/L (21-32) Anion Gap 3 (6-14) Blood Urea Nitrogen 47 mg/dL (7-20) Creatinine 0.7 mg/dL (0.6-1.0) Estimated GFR (Cockcroft-Gault) 80.9 Glucose Level 273 mg/dL (70-99) Calcium Level 8.1 mg/dL (8.5-10.1) Prothrombin Time 18.0 SEC (11.7-14.0) Prothromb Time International Ratio 1.6 (0.8-1.1) Test 02/11/17 17:12 02/11/17 22:19 02/12/17 01:09 02/12/17 06:48 Glucose (Fingerstick) 319 mg/dL (70-99) 262 mg/dL (70-99) 210 mg/dL (70-99) 190 mg/dL (70-99) Test 02/12/17 06:50 02/12/17 07:10 White Blood Count 14.7 x10^3/uL (4.0-11.0) Red Blood Count 2.25 x10^6/uL (3.50-5.40) Hemoglobin 6.7 g/dL (12.0-15.5) Hematocrit 20.9 % (36.0-47.0) Mean Corpuscular Volume 93 fL (79-100) Mean Corpuscular Hemoglobin 30 pg (25-35) Mean Corpuscular Hemoglobin Concent 32 g/dL (31-37) Red Cell Distribution Width 16.6 % (11.5-14.5) Platelet Count 244 x10^3/uL (140-400) Sodium Level 150 mmol/L (136-145) Potassium Level 4.6 mmol/L (3.5-5.1) Chloride Level 112 mmol/L (98-107) Carbon Dioxide Level 38 mmol/L (21-32) Anion Gap 0 (6-14) Blood Urea Nitrogen 41 mg/dL (7-20) Creatinine 0.7 mg/dL (0.6-1.0) Estimated GFR (Cockcroft-Gault) 80.9 Glucose Level 205 mg/dL (70-99) Calcium Level 8.5 mg/dL (8.5-10.1) Prothrombin Time 19.5 SEC (11.7-14.0) Prothromb Time International Ratio 1.8 (0.8-1.1) Micro reviewed BC coag neg staph, contaminant 1/6 bottles Objective Assessment Cough likely venous congestion, speech evaluating, now npo Anemia from gi bleed, gi following,got prbcs coagulopathy on warfarin Leucocytosis likely reactive,multifactorial Acute on chronic respiratory failure- likely multifactorial. improving Sepsis- likely multifactorial. resolved Blood culture + coag neg staph /6bottles, contaminant-recieved 7 days of IV Vanc, stopped yesterday COPD Acute on chronic diastolic congestive heart failure- Pulmonary HTN Atrial fibrillation Obstructive sleep apnea. Aortic stenosis. HTN Type 2 diabetes Hypothyroidism Generalized anxiety disorder Severe protein-calorie malnutrition HLD Plan Plan of Care Monitor off antibiotics pt remains at risk of aspiration continue supportive care BRITTANIE HERNANDEZ MD Feb 12, 2017 08:16
[2017-02-12] MEDS: ASPIRIN CHEWABLE 81 MG TABLET. PO SCH (08:51)
[2017-02-12] MEDS: metFORMIN 500 MG TABLET PO SCH ×2 (08:51→18:12)
[2017-02-12] MEDS: FERROUS SULFATE 325 MG TABLET. PO SCH ×2 (08:51→23:30)
[2017-02-12] MEDS: methylPREDNISolone SOD SUCC PF 40 MG/ML VIAL. IV SCH (08:51)
[2017-02-12] MEDS: GLIMEPIRIDE 2 MG TABLET. PO SCH ×2 (08:51→18:12)
[2017-02-12] MEDS: CITALOPRAM 20 MG TABLET. PO SCH (08:51)
[2017-02-12] MEDS: LEVOTHYROXINE 137 MCG TABLET PO SCH (08:51)
[2017-02-12] MEDS: LACTOBACILLUS RHAMNOSUS GG 1 CAPSULE. PO SCH ×2 (08:51→23:46)
--- NOTE | 2017-02-12 08:58 | PDOC ---
Subjective: Subjective: Feels better, wants ice chips. Objective: Objective: Reviewed w/ RN - ongoing black liquid output from rectal tube. Was NPO for awhile yesterday, then ate a little of dysphagia diet. Vital Signs: Vital Signs Date Time Temp Pulse Resp B/P (MAP) Pulse Ox O2 Delivery O2 Flow Rate FiO2 02/12/17 06:00 119 21 100/58 (72) 93 Nasal Cannula 2.0 02/12/17 04:00 98.3 98.3 Labs: Laboratory Tests Test 02/11/17 12:15 02/11/17 12:24 02/11/17 16:45 02/11/17 17:12 White Blood Count 15.1 x10^3/uL Red Blood Count 2.46 x10^6/uL Hemoglobin 7.3 g/dL Hematocrit 22.8 % Mean Corpuscular Volume 93 fL Mean Corpuscular Hemoglobin 30 pg Mean Corpuscular Hemoglobin Concent 32 g/dL Red Cell Distribution Width 16.3 % Platelet Count 251 x10^3/uL Sodium Level 149 mmol/L Potassium Level 5.2 mmol/L Chloride Level 110 mmol/L Carbon Dioxide Level 36 mmol/L Anion Gap 3 Blood Urea Nitrogen 47 mg/dL Creatinine 0.7 mg/dL Estimated GFR (Cockcroft-Gault) 80.9 Glucose Level 273 mg/dL Calcium Level 8.1 mg/dL Glucose (Fingerstick) 255 mg/dL 319 mg/dL Prothrombin Time 18.0 SEC Prothromb Time International Ratio 1.6 Test 02/11/17 22:19 02/12/17 01:09 02/12/17 06:48 02/12/17 06:50 Glucose (Fingerstick) 262 mg/dL 210 mg/dL 190 mg/dL White Blood Count 14.7 x10^3/uL Red Blood Count 2.25 x10^6/uL Hemoglobin 6.7 g/dL Hematocrit 20.9 % Mean Corpuscular Volume 93 fL Mean Corpuscular Hemoglobin 30 pg Mean Corpuscular Hemoglobin Concent 32 g/dL Red Cell Distribution Width 16.6 % Platelet Count 244 x10^3/uL Sodium Level 150 mmol/L Potassium Level 4.6 mmol/L Chloride Level 112 mmol/L Carbon Dioxide Level 38 mmol/L Anion Gap 0 Blood Urea Nitrogen 41 mg/dL Creatinine 0.7 mg/dL Estimated GFR (Cockcroft-Gault) 80.9 Glucose Level 205 mg/dL Calcium Level 8.5 mg/dL Test 02/12/17 07:10 Prothrombin Time 19.5 SEC Prothromb Time International Ratio 1.8 PE: GEN: NAD LUNGS: nasal cannula HEART: tachy ABD: soft, non-tender, black liquid in rectal bag NEURO/PSYCH: A & O 3 A/P: Anemia w/ dark rectal tube output (C Diff neg) - Hgb 6.7 Coumadin coagulopathy - INR 1.8 -- Reviewed w/ Dr. Mark - repeat bleeding scan. ARBEN PEREZ Feb 12, 2017 08:58
[2017-02-12] MEDS: IPRATRPIUM/ALBUTEROL 0.5/2.5MG 3 ML NEBU. NEB SCH ×4 (09:04→19:55)
[2017-02-12] MEDS ORDERED: PHYTONADIONE 10 MG/ML AMPUL. SQ ONE (09:45)
[2017-02-12 10:29] LABS: HEMOGLOBIN 6.6 g/dL (12.0-15.5)
[2017-02-12 10:30] LABS: HEMATOCRIT 20.8 % (36.0-47.0)
--- NOTE | 2017-02-12 12:06 | PDOC ---
PULMONARY PROGRESS NOTES Subjective PT FEELS BETTER NOT MORE SOA Vitals Vital Signs Date Time Temp Pulse Resp B/P (MAP) Pulse Ox O2 Delivery O2 Flow Rate FiO2 02/12/17 11:39 97.3 120 22 107/62 97.3 02/12/17 10:00 98 Nasal Cannula 2.0 ROS: No Nausea, No Chest Pain, No Abdominal Pain, No Increase Cough General: Alert, No acute distress Lungs: Clear Cardiovascular: S1, S2 Abdomen: Soft, Other (obese) Neuro Exam: Alert Extremities: Other (2+edema) Labs Laboratory Tests Test 02/10/17 13:05 02/10/17 17:06 02/10/17 17:45 02/10/17 19:44 Sodium Level 149 mmol/L (136-145) Potassium Level 4.5 mmol/L (3.5-5.1) Chloride Level 107 mmol/L (98-107) Carbon Dioxide Level 35 mmol/L (21-32) Anion Gap 7 (6-14) Blood Urea Nitrogen 45 mg/dL (7-20) Creatinine 0.9 mg/dL (0.6-1.0) Estimated GFR (Cockcroft-Gault) 60.6 Glucose Level 323 mg/dL (70-99) Calcium Level 8.6 mg/dL (8.5-10.1) Glucose (Fingerstick) 280 mg/dL (70-99) 270 mg/dL (70-99) Clostridium difficile Toxin (PCR) Negative (Negative) Test 02/10/17 21:40 02/11/17 00:47 02/11/17 06:15 02/11/17 08:56 Glucose (Fingerstick) 226 mg/dL (70-99) 258 mg/dL (70-99) 297 mg/dL (70-99) 285 mg/dL (70-99) Test 02/11/17 12:15 02/11/17 12:24 02/11/17 16:45 02/11/17 17:12 White Blood Count 15.1 x10^3/uL (4.0-11.0) Red Blood Count 2.46 x10^6/uL (3.50-5.40) Hemoglobin 7.3 g/dL (12.0-15.5) Hematocrit 22.8 % (36.0-47.0) Mean Corpuscular Volume 93 fL (79-100) Mean Corpuscular Hemoglobin 30 pg (25-35) Mean Corpuscular Hemoglobin Concent 32 g/dL (31-37) Red Cell Distribution Width 16.3 % (11.5-14.5) Platelet Count 251 x10^3/uL (140-400) Sodium Level 149 mmol/L (136-145) Potassium Level 5.2 mmol/L (3.5-5.1) Chloride Level 110 mmol/L (98-107) Carbon Dioxide Level 36 mmol/L (21-32) Anion Gap 3 (6-14) Blood Urea Nitrogen 47 mg/dL (7-20) Creatinine 0.7 mg/dL (0.6-1.0) Estimated GFR (Cockcroft-Gault) 80.9 Glucose Level 273 mg/dL (70-99) Calcium Level 8.1 mg/dL (8.5-10.1) Glucose (Fingerstick) 255 mg/dL (70-99) 319 mg/dL (70-99) Prothrombin Time 18.0 SEC (11.7-14.0) Prothromb Time International Ratio 1.6 (0.8-1.1) Test 02/11/17 22:19 02/12/17 01:09 02/12/17 06:48 02/12/17 06:50 Glucose (Fingerstick) 262 mg/dL (70-99) 210 mg/dL (70-99) 190 mg/dL (70-99) White Blood Count 14.7 x10^3/uL (4.0-11.0) Red Blood Count 2.25 x10^6/uL (3.50-5.40) Hemoglobin 6.7 g/dL (12.0-15.5) Hematocrit 20.9 % (36.0-47.0) Mean Corpuscular Volume 93 fL (79-100) Mean Corpuscular Hemoglobin 30 pg (25-35) Mean Corpuscular Hemoglobin Concent 32 g/dL (31-37) Red Cell Distribution Width 16.6 % (11.5-14.5) Platelet Count 244 x10^3/uL (140-400) Sodium Level 150 mmol/L (136-145) Potassium Level 4.6 mmol/L (3.5-5.1) Chloride Level 112 mmol/L (98-107) Carbon Dioxide Level 38 mmol/L (21-32) Anion Gap 0 (6-14) Blood Urea Nitrogen 41 mg/dL (7-20) Creatinine 0.7 mg/dL (0.6-1.0) Estimated GFR (Cockcroft-Gault) 80.9 Glucose Level 205 mg/dL (70-99) Calcium Level 8.5 mg/dL (8.5-10.1) Test 02/12/17 07:10 02/12/17 08:53 02/12/17 10:10 Prothrombin Time 19.5 SEC (11.7-14.0) Prothromb Time International Ratio 1.8 (0.8-1.1) Glucose (Fingerstick) 211 mg/dL (70-99) Hemoglobin 6.6 g/dL (12.0-15.5) Hematocrit 20.8 % (36.0-47.0) Mean Corpuscular Hemoglobin Concent 32 g/dL (31-37) Laboratory Tests Test 02/11/17 12:15 02/11/17 12:24 02/11/17 16:45 02/11/17 17:12 White Blood Count 15.1 x10^3/uL (4.0-11.0) Red Blood Count 2.46 x10^6/uL (3.50-5.40) Hemoglobin 7.3 g/dL (12.0-15.5) Hematocrit 22.8 % (36.0-47.0) Mean Corpuscular Volume 93 fL (79-100) Mean Corpuscular Hemoglobin 30 pg (25-35) Mean Corpuscular Hemoglobin Concent 32 g/dL (31-37) Red Cell Distribution Width 16.3 % (11.5-14.5) Platelet Count 251 x10^3/uL (140-400) Sodium Level 149 mmol/L (136-145) Potassium Level 5.2 mmol/L (3.5-5.1) Chloride Level 110 mmol/L (98-107) Carbon Dioxide Level 36 mmol/L (21-32) Anion Gap 3 (6-14) Blood Urea Nitrogen 47 mg/dL (7-20) Creatinine 0.7 mg/dL (0.6-1.0) Estimated GFR (Cockcroft-Gault) 80.9 Glucose Level 273 mg/dL (70-99) Calcium Level 8.1 mg/dL (8.5-10.1) Glucose (Fingerstick) 255 mg/dL (70-99) 319 mg/dL (70-99) Prothrombin Time 18.0 SEC (11.7-14.0) Prothromb Time International Ratio 1.6 (0.8-1.1) Test 02/11/17 22:19 02/12/17 01:09 02/12/17 06:48 02/12/17 06:50 Glucose (Fingerstick) 262 mg/dL (70-99) 210 mg/dL (70-99) 190 mg/dL (70-99) White Blood Count 14.7 x10^3/uL (4.0-11.0) Red Blood Count 2.25 x10^6/uL (3.50-5.40) Hemoglobin 6.7 g/dL (12.0-15.5) Hematocrit 20.9 % (36.0-47.0) Mean Corpuscular Volume 93 fL (79-100) Mean Corpuscular Hemoglobin 30 pg (25-35) Mean Corpuscular Hemoglobin Concent 32 g/dL (31-37) Red Cell Distribution Width 16.6 % (11.5-14.5) Platelet Count 244 x10^3/uL (140-400) Sodium Level 150 mmol/L (136-145) Potassium Level 4.6 mmol/L (3.5-5.1) Chloride Level 112 mmol/L (98-107) Carbon Dioxide Level 38 mmol/L (21-32) Anion Gap 0 (6-14) Blood Urea Nitrogen 41 mg/dL (7-20) Creatinine 0.7 mg/dL (0.6-1.0) Estimated GFR (Cockcroft-Gault) 80.9 Glucose Level 205 mg/dL (70-99) Calcium Level 8.5 mg/dL (8.5-10.1) Test 02/12/17 07:10 02/12/17 08:53 02/12/17 10:10 Prothrombin Time 19.5 SEC (11.7-14.0) Prothromb Time International Ratio 1.8 (0.8-1.1) Glucose (Fingerstick) 211 mg/dL (70-99) Hemoglobin 6.6 g/dL (12.0-15.5) Hematocrit 20.8 % (36.0-47.0) Mean Corpuscular Hemoglobin Concent 32 g/dL (31-37) Medications Active Scripts Medications Dose Route/Sig Max Daily Dose Days Date Category Dose Instructions Ferrous Sulfate 325 Mg Tablet 1 Tab PO BID 01/08/17 Reported LAST DOSE GIVEN: DATE:01/08/17 TIME:9:00 a.m. Warfarin Sodium 5 Mg Tablet 1 Tab PO DAILY 30 01/08/17 Reported LAST DOSE GIVEN: DATE:01/08/17 TIME:2:00 p.m Levothyroxine Sodium 137 Mcg Tablet 137 Mcg PO DAILYAC 01/04/17 Reported LAST DOSE GIVEN: DATE:01/08/17 TIME:7:30 a.m. Furosemide 40 Mg Tablet 40 Mg PO DAILY 01/04/17 Reported LAST DOSE GIVEN: DATE:01/07/17 TIME:9:00 a.m. Aspirin 81 Mg Tab.chew 1 Tab PO DAILY 11/16/16 Reported LAST DOSE GIVEN: DATE:01/08/17 TIME:9:00 a.m. Hydrocodone-Apap 7.5-325 (Hydrocodone Bit/Acetaminophen) 1 Each Tablet 1-2 Tab PO PRN Q6HRS PRN 12/26/15 Reported Took at 12:30 today may take anytime as needed for pain every 4 hours Amaryl (Glimepiride) 4 Mg Tablet 1 Tab PO BID 12/16/15 Reported LAST DOSE GIVEN: DATE:01/08/17 TIME:9:00 a.m. Potassium Chloride 20 Meq Tab.er.prt 1 Tab PO WEEKLY 04/17/15 Reported Meds not given this hospital admission. May resume home medications as approved by Physician. TIME: 8:30 a.m. NEXT DOSE DUE: DATE: 12-28-15 TIME: 8:30 a.m. Metolazone 5 Mg Tablet 5 Mg PO WEEKLY 04/16/15 Reported Meds not given this hospital admission. May resume home medications as approved by Physician. TIME: 8:30 a.m. NEXT DOSE DUE: DATE: 12-28-15 TIME: 8:30 a.m. Lexapro (Escitalopram Oxalate) 10 Mg Tablet 20 Mg PO DAILY 05/01/13 Reported LAST DOSE GIVEN: DATE:01/08/17 TIME:9:00 a.m. NEXT DOSE DUE: DATE: 12-28-15 TIME: 8:30 a.m. Cardizem Cd (Diltiazem Hcl) 240 Mg Cap.er.24h 120 Mg PO HS 05/01/13 Reported LAST DOSE GIVEN: DATE:01/07/17 TIME:9:00 p.m. NEXT DOSE DUE: DATE: 12-27-15 TIME: 9:00 p.m. Losartan Potassium 100 Mg Tablet 25 Mg PO DAILY 05/01/13 Reported LAST DOSE GIVEN: DATE:01/07/17 TIME:9:00 a.m. Crestor (Rosuvastatin Calcium) 40 Mg Tablet 40 Mg PO QHS 05/01/13 Reported LAST DOSE GIVEN: DATE:01/07/17 TIME:9:00 p.m. NEXT DOSE DUE: DATE: 12-27-15 TIME: 9:00 p.m. Impression . 1. Acute on chronic hypercapnic respiratory failure multifactorial 2. Sepsis per ID 3. JAYLIN 4. COPD 5. Moderate to severe protein-calorie malnutrition. 6. Abnormal chest x-ray 7. Acute Blood loss anemia 8. Coagulopathy 9. Morbid Obesity 10. Dysphagia Plan . OK TO TRANSFER FOLLOW DYSPHAGIA DIET NO ON 3 LITERS PRN BIPAP UP TO CHAIR REPEAT CXR STABLE ALYSSA SLADE MD Feb 12, 2017 12:06
--- NOTE | 2017-02-12 13:23 | RAD ---
Indication: Dobbhoff placement. Time of exam 12:47 PM The Dobbhoff passes below the diaphragm. The tip appears to be located in the distal stomach. No free air is seen. Impression: Dobbhoff placement, as described.
[2017-02-12 13:28] LABS: MAGNESIUM 2.5 mg/dL (1.8-2.4); PHOSPHORUS 2.6 mg/dL (2.6-4.7)
[2017-02-12] MEDS: DIGOXIN IV 500 MCG/2 ML AMPUL. IV SCH (14:08)
[2017-02-12] MEDS: TPN PER PHARMACY MC PRN (14:13)
--- NOTE | 2017-02-12 14:41 | RAD ---
Indication: Anemia and dark stools. The patient was administered 33 mCi of technetium 99m pertechnetate labeled to the patient's red blood cells and imaging over the abdomen was performed. Normal activity within the heart, liver and spleen and major vasculature is again noted. No abnormal accumulation of activity is identified to suggest acute GI bleed. Impression: No evidence of acute GI bleed.
--- NOTE | 2017-02-12 15:41 | PDOC ---
PROGRESS NOTES Subjective Subjective Pt feeling better No GI bleed detected on bleeding scan Objective Objective Vital Signs Date Time Temp Pulse Resp B/P (MAP) Pulse Ox O2 Delivery O2 Flow Rate FiO2 02/12/17 14:21 97.4 145 22 113/60 97.4 02/12/17 12:34 95 Nasal Cannula 3.0 Intake and Output 02/12/17 07:00 Intake Total 655 ml Output Total 2925 ml Balance -2270 ml Intake Oral 200 ml IV Total 455 ml Output Urine Total 2925 ml Physical Exam Physical Exam No change to cardiac exam Assessment Assessment Agree with plan for CT angio with solucorteff, Pepcid, Benadryl 1 hour before scan Pt is stable from cardiac perspective. Continue with GI Bleed work up Problems Medical Problems: (1) Acute on chronic congestive heart failure Status: Acute (2) COPD (chronic obstructive pulmonary disease) Status: Acute (3) Healthcare-associated pneumonia Status: Acute (4) Morbid obesity Status: Acute (5) Sepsis Status: Acute (6) Severe protein-calorie malnutrition Status: Acute (7) Urinary tract infection Status: Acute Comment Review of Relevant I have reviewed the following items donald (where applicable) has been applied. Labs Laboratory Tests Test 02/10/17 17:06 02/10/17 17:45 02/10/17 19:44 02/10/17 21:40 Glucose (Fingerstick) 280 mg/dL (70-99) 270 mg/dL (70-99) 226 mg/dL (70-99) Clostridium difficile Toxin (PCR) Negative (Negative) Test 02/11/17 00:47 02/11/17 06:15 02/11/17 08:56 02/11/17 12:15 Glucose (Fingerstick) 258 mg/dL (70-99) 297 mg/dL (70-99) 285 mg/dL (70-99) White Blood Count 15.1 x10^3/uL (4.0-11.0) Red Blood Count 2.46 x10^6/uL (3.50-5.40) Hemoglobin 7.3 g/dL (12.0-15.5) Hematocrit 22.8 % (36.0-47.0) Mean Corpuscular Volume 93 fL (79-100) Mean Corpuscular Hemoglobin 30 pg (25-35) Mean Corpuscular Hemoglobin Concent 32 g/dL (31-37) Red Cell Distribution Width 16.3 % (11.5-14.5) Platelet Count 251 x10^3/uL (140-400) Sodium Level 149 mmol/L (136-145) Potassium Level 5.2 mmol/L (3.5-5.1) Chloride Level 110 mmol/L (98-107) Carbon Dioxide Level 36 mmol/L (21-32) Anion Gap 3 (6-14) Blood Urea Nitrogen 47 mg/dL (7-20) Creatinine 0.7 mg/dL (0.6-1.0) Estimated GFR (Cockcroft-Gault) 80.9 Glucose Level 273 mg/dL (70-99) Calcium Level 8.1 mg/dL (8.5-10.1) Test 02/11/17 12:24 02/11/17 16:45 02/11/17 17:12 02/11/17 22:19 Glucose (Fingerstick) 255 mg/dL (70-99) 319 mg/dL (70-99) 262 mg/dL (70-99) Prothrombin Time 18.0 SEC (11.7-14.0) Prothromb Time International Ratio 1.6 (0.8-1.1) Test 02/12/17 01:09 02/12/17 06:48 02/12/17 06:50 02/12/17 07:10 Glucose (Fingerstick) 210 mg/dL (70-99) 190 mg/dL (70-99) White Blood Count 14.7 x10^3/uL (4.0-11.0) Red Blood Count 2.25 x10^6/uL (3.50-5.40) Hemoglobin 6.7 g/dL (12.0-15.5) Hematocrit 20.9 % (36.0-47.0) Mean Corpuscular Volume 93 fL (79-100) Mean Corpuscular Hemoglobin 30 pg (25-35) Mean Corpuscular Hemoglobin Concent 32 g/dL (31-37) Red Cell Distribution Width 16.6 % (11.5-14.5) Platelet Count 244 x10^3/uL (140-400) Sodium Level 150 mmol/L (136-145) Potassium Level 4.6 mmol/L (3.5-5.1) Chloride Level 112 mmol/L (98-107) Carbon Dioxide Level 38 mmol/L (21-32) Anion Gap 0 (6-14) Blood Urea Nitrogen 41 mg/dL (7-20) Creatinine 0.7 mg/dL (0.6-1.0) Estimated GFR (Cockcroft-Gault) 80.9 Glucose Level 205 mg/dL (70-99) Calcium Level 8.5 mg/dL (8.5-10.1) Phosphorus Level 2.6 mg/dL (2.6-4.7) Magnesium Level 2.5 mg/dL (1.8-2.4) Prothrombin Time 19.5 SEC (11.7-14.0) Prothromb Time International Ratio 1.8 (0.8-1.1) Test 02/12/17 08:53 02/12/17 10:10 02/12/17 12:40 Glucose (Fingerstick) 211 mg/dL (70-99) 243 mg/dL (70-99) Hemoglobin 6.6 g/dL (12.0-15.5) Hematocrit 20.8 % (36.0-47.0) Mean Corpuscular Hemoglobin Concent 32 g/dL (31-37) Laboratory Tests Test 02/11/17 16:45 02/11/17 17:12 02/11/17 22:19 02/12/17 01:09 Prothrombin Time 18.0 SEC (11.7-14.0) Prothromb Time International Ratio 1.6 (0.8-1.1) Glucose (Fingerstick) 319 mg/dL (70-99) 262 mg/dL (70-99) 210 mg/dL (70-99) Test 02/12/17 06:48 02/12/17 06:50 02/12/17 07:10 02/12/17 08:53 Glucose (Fingerstick) 190 mg/dL (70-99) 211 mg/dL (70-99) White Blood Count 14.7 x10^3/uL (4.0-11.0) Red Blood Count 2.25 x10^6/uL (3.50-5.40) Hemoglobin 6.7 g/dL (12.0-15.5) Hematocrit 20.9 % (36.0-47.0) Mean Corpuscular Volume 93 fL (79-100) Mean Corpuscular Hemoglobin 30 pg (25-35) Mean Corpuscular Hemoglobin Concent 32 g/dL (31-37) Red Cell Distribution Width 16.6 % (11.5-14.5) Platelet Count 244 x10^3/uL (140-400) Sodium Level 150 mmol/L (136-145) Potassium Level 4.6 mmol/L (3.5-5.1) Chloride Level 112 mmol/L (98-107) Carbon Dioxide Level 38 mmol/L (21-32) Anion Gap 0 (6-14) Blood Urea Nitrogen 41 mg/dL (7-20) Creatinine 0.7 mg/dL (0.6-1.0) Estimated GFR (Cockcroft-Gault) 80.9 Glucose Level 205 mg/dL (70-99) Calcium Level 8.5 mg/dL (8.5-10.1) Phosphorus Level 2.6 mg/dL (2.6-4.7) Magnesium Level 2.5 mg/dL (1.8-2.4) Prothrombin Time 19.5 SEC (11.7-14.0) Prothromb Time International Ratio 1.8 (0.8-1.1) Test 02/12/17 10:10 02/12/17 12:40 Hemoglobin 6.6 g/dL (12.0-15.5) Hematocrit 20.8 % (36.0-47.0) Mean Corpuscular Hemoglobin Concent 32 g/dL (31-37) Glucose (Fingerstick) 243 mg/dL (70-99) Microbiology 02/05/17 Blood Culture - Final, Complete NO GROWTH AFTER 5 DAYS 02/05/17 Urine Culture - Final, Complete 02/05/17 Urine Culture Result 1 (BISI) - Final, Complete Medications Current Medications Sodium Chloride 1,000 ml @ 620 mls/hr Q1H37M IV Last administered on 10:43; Start 02/05/17 at 09:05; Stop 02/05/17 at 12:05; Status DC Albuterol/ Ipratropium (Duoneb) 6 ml 1X ONCE NEB Last administered on 09:18; Start 02/05/17 at 09:15; Stop 02/05/17 at 09:16; Status DC Meropenem 1 gm/ Sodium Chloride 100 ml @ 200 mls/hr Q8HRS IV ; Start 02/05/17 at 14:00; Status UNV Vancomycin HCl (Vanco Per Pharmacy) 1 each PRN DAILY PRN MC SEE COMMENTS Last administered on 02/10/17 14:10; Start 02/05/17 at 11:30; Stop 02/11/17 at 08 :13; Status DC Levofloxacin/ Dextrose (Levaquin Per Pharmacy) 1 each PRN DAILY PRN MC SEE COMMENTS; Start 02/05/17 at 11:30; Stop 02/09/17 at 08:20; Status DC Vancomycin HCl 2 gm/Dextrose 500 ml @ 250 mls/hr 1X ONCE IV Last administered on 02/05/17 13:20; Start 02/05/17 at 12:00; Stop 02/05/17 at 13 :59; Status DC Meropenem (Merrem) 1 gm 1X ONCE IVP Last administered on 02/05/17 11:37; Start 02/05/17 at 12:00; Stop 02/05/17 at 19:17; Status DC Levofloxacin/ Dextrose 150 ml @ 100 mls/hr 1X ONCE IV Last administered on 11:38; Start 02/05/17 at 12:00; Stop 02/05/17 at 13:29; Status DC Methylprednisolone Sodium Succinate (SOLU-Medrol 125MG VIAL) 125 mg 1X ONCE IV Last administered on 02/05/17 12:06; Start 02/05/17 at 11:45; Stop at 11:59; Status DC Ondansetron HCl (Zofran) 4 mg PRN Q8HRS PRN IV NAUSEA/VOMITING; Start at 12:00; Stop 02/06/17 at 11:59; Status DC Sodium Chloride 1,000 ml @ 75 mls/hr [id number] IV Last administered on 16:24; Start 02/05/17 at 11:46; Stop 02/06/17 at 11:19; Status DC Acetaminophen (Tylenol) 650 mg PRN Q4HRS PRN PO FEVER Last administered on 03:34; Start 02/05/17 at 12:00; Stop 02/06/17 at 11:59; Status DC Albuterol/ Ipratropium (Duoneb) 3 ml RTQID NEB Last administered on 02/06/17 09:33; Start 02/05/17 at 12:00; Stop 02/06/17 at 11:59; Status DC Dobutamine HCl 2000 mg/Dextrose 250 ml @ 4.59 mls/hr CONT IV ; Start 02/05/17 at 12:00; Stop 02/05/17 at 13:17; Status DC Dobutamine HCl/ Dextrose 250 ml @ 18.375 mls/ hr CONT PRN IV SEE I/O RECORD; Start 02/05/17 at 13:15 Meropenem (Merrem) 1 gm Q8HRS IVP Last administered on 02/05/17 21:03; Start 02/05/17 at 21:00; Stop 02/05/17 at 21:53; Status DC Levofloxacin/ Dextrose 150 ml @ 100 mls/hr Q24H IV Last administered on 20:36; Start 02/06/17 at 12:00; Stop 02/09/17 at 08:24; Status DC Vancomycin HCl 1.75 gm/Dextrose/ Sodium Chloride 500 ml @ 250 mls/hr Q18H IV Last administered on 02/07/17 19:48; Start 02/06/17 at 07:00; Stop 02/08/17 at 13:27; Status DC Vancomycin HCl 1 each 1X ONCE MC Last administered on 02/07/17 00:30; Start 02/07/17 at 00:30; Stop 02/07/17 at 00:31; Status DC Methylprednisolone Sodium Succinate (SOLU-Medrol 40MG VIAL) 40 mg Q8HRS IV Last administered on 02/11/17 06:02; Start 02/05/17 at 16:00; Stop 02/11/17 at 13:17; Status DC Enoxaparin Sodium (Lovenox 40mg Syringe) 40 mg Q24H SQ Last administered on 16:24; Start 02/05/17 at 16:00; Stop 02/05/17 at 21:19; Status DC Aspirin (Children'S Aspirin) 81 mg DAILY PO Last administered on 02/08/17 08: 41; Start 02/06/17 at 09:00; Stop 02/12/17 at 09:29; Status DC Diltiazem HCl (Cardizem 24hr Cd) 120 mg QHS PO Last administered on 02/11/17 22:14; Start 02/05/17 at 21:00 Ferrous Sulfate (Feosol) 325 mg BID PO Last administered on 02/12/17 08:51; Start 02/05/17 at 21:00 Acetaminophen/ Hydrocodone Bitart (Lortab 7.5/325) 2 tab PRN Q6HRS PRN PO PAIN Last administered on 02/10/17 19:56; Start 02/05/17 at 17:15 Levothyroxine Sodium (Synthroid) 137 mcg DAILYAC PO Last administered on 08:51; Start 02/06/17 at 07:30 Warfarin Sodium (Coumadin) 5 mg DAILY16 PO Last administered on 02/07/17 17: 28; Start 02/05/17 at 22:00; Stop 02/08/17 at 09:53; Status DC Citalopram Hydrobromide (CeleXA) 40 mg DAILY PO Last administered on 08:51; Start 02/06/17 at 09:00 Glimepiride (Amaryl) 4 mg BIDWMEALS PO Last administered on 02/12/17 08:51; Start 02/05/17 at 17:30 Losartan Potassium (Cozaar) 25 mg DAILY PO ; Start 02/06/17 at 09:00; Stop at 11:22; Status DC Atorvastatin Calcium (Lipitor) 80 mg QHS PO Last administered on 02/11/17 22: 15; Start 02/05/17 at 21:00 Insulin Aspart (NovoLOG) 0-12 UNITS QIDACHS SQ Last administered on 02/12/17 12:44; Start 02/05/17 at 18:00 Norepinephrine Bitartrate 250 ml @ 0 mls/hr CONT PRN IV SEE I/O RECORD; Start 02/05/17 at 19:00 Albuterol/ Ipratropium (Duoneb) 3 ml STK-MED ONCE .ROUTE ; Start 02/05/17 at 19 :16; Stop 02/05/17 at 19:17; Status DC Meropenem (Merrem) 1 gm Q8HRS IVP Last administered on 02/08/17 05:33; Start 02/06/17 at 06:00; Stop 02/08/17 at 09:00; Status DC Warfarin Sodium (Coumadin Per Physician) 1 each PRN DAILY PRN MC SEE COMMENTS; Start 02/06/17 at 07:45; Status Cancel Lactobacillus Rhamnosus (Culturelle) 1 cap BID PO Last administered on 08:51; Start 02/06/17 at 09:00 Albuterol/ Ipratropium (Duoneb) 3 ml RTQID NEB Last administered on 02/12/17 12:34; Start 02/06/17 at 16:00 Alprazolam (Xanax) 0.5 mg PRN TID PRN PO ANXIETY / AGITATION Last administered on 02/11/17 22:14; Start 02/06/17 at 17:30 Metformin HCl (Glucophage) 500 mg BIDWMEALS PO Last administered on 02/12/17 08:51; Start 02/07/17 at 12:00 Polyethylene Glycol (miraLAX PACKET) 17 gm PRN DAILY PRN PO CONSTIPATION Last administered on 02/07/17 21:29; Start 02/07/17 at 20:00 Alteplase, Recombinant (Cathflo) 2 mg 1X ONCE INT CAT Last administered on 07:32; Start 02/08/17 at 08:00; Stop 02/08/17 at 08:01; Status DC Pantoprazole Sodium 80 mg/ Sodium Chloride 100 ml @ 10 mls/hr Q10H IV Last administered on 02/11/17 22:31; Start 02/08/17 at 13:30 Vancomycin HCl 1.75 gm/Dextrose/ Sodium Chloride 500 ml @ 250 mls/hr Q18H IV Last administered on 02/11/17 02:15; Start 02/08/17 at 21:00; Stop 02/11/17 at 08:15; Status DC Digoxin (Lanoxin) 500 mcg 1X ONCE IV Last administered on 02/08/17 18:30; Start 02/08/17 at 18:15; Stop 02/08/17 at 18:26; Status DC Digoxin (Lanoxin) 250 mcg 1X ONCE IV Last administered on 02/08/17 19:56; Start 02/08/17 at 19:45; Stop 02/08/17 at 19:46; Status DC Fentanyl Citrate (Fentanyl 2ml Vial) 50 mcg PRN Q3HRS PRN IV PAIN Last administered on 02/08/17 21:09; Start 02/08/17 at 20:30 Albumin Human 500 ml @ 125 mls/hr 1X ONCE IV Last administered on 02/08/17 23:38; Start 02/08/17 at 22:00; Stop 02/09/17 at 01:59; Status DC Phytonadione 10 mg/Sodium Chloride 51 ml @ 102 mls/hr 1X ONCE IV Last administered on 02/09/17 07:24; Start 02/09/17 at 08:00; Stop 02/09/17 at 08 :29; Status DC Throat Lozenges (Chloraseptic) 1 spray PRN Q2HR PRN PO SORE THROAT Last administered on 02/09/17 13:40; Start 02/09/17 at 08:45 Digoxin (Lanoxin) 125 mcg 1X ONCE IV Last administered on 02/10/17 13:02; Start 02/10/17 at 12:15; Stop 02/10/17 at 12:16; Status DC Insulin Aspart (NovoLOG) 6 units Q6HRS SQ Last administered on 02/11/17 06:20 ; Start 02/10/17 at 15:00; Stop 02/11/17 at 11:54; Status DC Sodium Chloride (Saline Mist Nasal) 1 nara PRN Q1HR PRN NS NASAL CONGESTION; Start 02/10/17 at 17:30 Vancomycin HCl 1 each 1X ONCE MC ; Start 02/11/17 at 20:30; Stop 02/11/17 at 20:31; Status Cancel Insulin Aspart (NovoLOG) 10 units Q6HRS SQ Last administered on 02/12/17 12: 43; Start 02/11/17 at 12:00 Methylprednisolone Sodium Succinate (SOLU-Medrol 40MG VIAL) 40 mg DAILY IV Last administered on 02/12/17 08:51; Start 02/12/17 at 09:00 Sodium Chloride 1,000 ml @ 85 mls/hr [id number] IV Last administered on 14:21; Start 02/11/17 at 14:00; Stop 02/12/17 at 01:45; Status DC Artificial Tears (Artificial Tears) 1 drop PRN Q15MIN PRN OU DRY EYE; Start at 19:15 Phytonadione (Vitamin K Ampule) 5 mg 1X ONCE SQ Last administered on 11:32; Start 02/12/17 at 09:45; Stop 02/12/17 at 09:46; Status DC Info 1 each PRN DAILY PRN MC SEE COMMENTS Last administered on 02/12/17 14:13 ; Start 02/12/17 at 09:45 Sodium Chloride 60 meq/Potassium Chloride 25 meq/ Potassium Phosphate 13.6 mmol/ Magnesium Sulfate 5 meq/ Calcium Gluconate 10 meq/ Multivitamins 10 ml/Chromium / Copper/Manganese/ Seleni/Zn 1 ml/ Potassium Acetate 25 meq/Total Parenteral Nutrition/Amino Acids/Dextrose/ Fat Emuls... 1,512 ml @ 63 mls/hr TPN CONT IV ; Start 02/12/17 at 22:00; Stop 02/13/17 at 21:59 Digoxin (Lanoxin) 250 mcg DAILY IV Last administered on 02/12/17 14:08; Start 02/12/17 at 14:30 Active Scripts Active Reported Ferrous Sulfate 325 Mg Tablet 1 Tab PO BID LAST DOSE GIVEN: DATE:01/08/17 TIME:9:00 a.m. Warfarin Sodium 5 Mg Tablet 1 Tab PO DAILY 30 Days LAST DOSE GIVEN: DATE:01/08/17 TIME:2:00 p.m Levothyroxine Sodium 137 Mcg Tablet 137 Mcg PO DAILYAC LAST DOSE GIVEN: DATE:01/08/17 TIME:7:30 a.m. Furosemide 40 Mg Tablet 40 Mg PO DAILY LAST DOSE GIVEN: DATE:01/07/17 TIME:9:00 a.m. Aspirin 81 Mg Tab.chew 1 Tab PO DAILY LAST DOSE GIVEN: DATE:01/08/17 TIME:9:00 a.m. Hydrocodone-Apap 7.5-325 (Hydrocodone Bit/Acetaminophen) 1 Each Tablet 1-2 Tab PO PRN Q6HRS PRN Took at 12:30 today may take anytime as needed for pain every 4 hours Amaryl (Glimepiride) 4 Mg Tablet 1 Tab PO BID LAST DOSE GIVEN: DATE:01/08/17 TIME:9:00 a.m. Potassium Chloride 20 Meq Tab.er.prt 1 Tab PO WEEKLY Meds not given this hospital admission. May resume home medications as approved by Physician. TIME: 8:30 a.m. NEXT DOSE DUE: DATE: 12-28-15 TIME: 8:30 a.m. Metolazone 5 Mg Tablet 5 Mg PO WEEKLY Meds not given this hospital admission. May resume home medications as approved by Physician. TIME: 8:30 a.m. NEXT DOSE DUE: DATE: 12-28-15 TIME: 8:30 a.m. Lexapro (Escitalopram Oxalate) 10 Mg Tablet 20 Mg PO DAILY LAST DOSE GIVEN: DATE:01/08/17 TIME:9:00 a.m. NEXT DOSE DUE: DATE: 12-28-15 TIME: 8:30 a.m. Cardizem Cd (Diltiazem Hcl) 240 Mg Cap.er.24h 120 Mg PO HS LAST DOSE GIVEN: DATE:01/07/17 TIME:9:00 p.m. NEXT DOSE DUE: DATE: 12-27-15 TIME: 9:00 p.m. Losartan Potassium 100 Mg Tablet 25 Mg PO DAILY LAST DOSE GIVEN: DATE:01/07/17 TIME:9:00 a.m. Crestor (Rosuvastatin Calcium) 40 Mg Tablet 40 Mg PO QHS LAST DOSE GIVEN: DATE:01/07/17 TIME:9:00 p.m. NEXT DOSE DUE: DATE: 12-27-15 TIME: 9:00 p.m. Vitals/I & O Vital Sign - Last 24 Hours 02/11/17 02/11/17 02/11/17 02/11/17 16:00 16:00 16:00 16:30 Temp 98.6 98.6 Pulse 114 Resp 22 B/P (MAP) 127/75 (92) Pulse Ox 98 97 O2 Delivery Nasal Cannula Nasal Cannula Nasal Cannula O2 Flow Rate 2.0 2.0 2.0 3.0 02/11/17 02/11/17 02/11/17 02/11/17 17:00 18:00 19:00 20:00 Pulse 119 130 137 Resp 18 18 18 B/P (MAP) 90/68 (75) 108/56 (73) 98/54 (69) Pulse Ox 98 98 98 O2 Delivery Nasal Cannula Nasal Cannula Nasal Cannula O2 Flow Rate 2.0 2.0 2.0 2.0 02/11/17 02/11/17 02/11/17 02/11/17 20:00 20:00 20:25 21:00 Temp 99.5 99.5 Pulse 126 153 Resp 18 18 B/P (MAP) 84/51 (62) 97/55 (69) Pulse Ox 98 95 98 O2 Delivery Nasal Cannula Nasal Cannula Nasal Cannula Nasal Cannula O2 Flow Rate 2.0 2.0 3.0 2.0 02/11/17 02/11/17 02/11/17 02/11/17 22:00 22:14 23:00 23:59 Pulse 134 128 142 Resp 18 18 B/P (MAP) 110/70 (83) 110/70 128/57 (80) Pulse Ox 98 98 O2 Delivery Nasal Cannula Nasal Cannula Nasal Cannula O2 Flow Rate 2.0 2.0 2.0 02/12/17 02/12/17 02/12/17 02/12/17 00:00 00:00 01:00 02:00 Temp 98.5 98.5 Pulse 122 140 150 Resp 23 34 21 B/P (MAP) 137/68 (91) 104/65 (78) 68/51 (57) Pulse Ox 98 98 98 O2 Delivery Nasal Cannula Nasal Cannula Nasal Cannula O2 Flow Rate 2.0 2.0 2.0 2.0 02/12/17 02/12/17 02/12/17 02/12/17 03:00 04:00 04:00 04:00 Temp 98.3 98.3 Pulse 120 110 Resp 21 21 B/P (MAP) 109/51 (70) 91/54 (66) Pulse Ox 98 98 O2 Delivery Nasal Cannula Nasal Cannula Nasal Cannula O2 Flow Rate 2.0 2.0 2.0 2.0 02/12/17 02/12/17 02/12/17 02/12/17 05:00 06:00 07:00 08:00 Temp 97.3 97.3 Pulse 120 119 139 112 Resp 21 21 26 16 B/P (MAP) 107/52 (70) 100/58 (72) 108/63 (78) 138/88 (105) Pulse Ox 98 93 94 97 O2 Delivery Nasal Cannula Nasal Cannula Nasal Cannula Nasal Cannula O2 Flow Rate 2.0 2.0 2.0 2.0 02/12/17 02/12/17 02/12/1702/12/17 08:00 09:00 09:06 10:00 Pulse 131 145 Resp 21 21 B/P (MAP) 134/80 (98) 195/75 (115) Pulse Ox 98 95 98 O2 Delivery Nasal Cannula Nasal Cannula Nasal Cannula O2 Flow Rate 2.0 2.0 3.0 2.0 02/12/17 02/12/17 02/12/17 02/12/17 11:39 11:54 12:10 12:25 Temp 97.3 97.6 97.3 97.6 Pulse 120 133 124 129 Resp 22 32 30 24 B/P (MAP) 107/62 98/69 102/64 102/62 02/12/17 02/12/17 02/12/17 02/12/17 12:34 14:06 14:08 14:21 Temp 97.3 97.4 97.3 97.4 Pulse 144 154 145 Resp 22 22 B/P (MAP) 109/61 120/53 113/60 Pulse Ox 95 O2 Delivery Nasal Cannula O2 Flow Rate 3.0 Intake and Output 02/11/17 02/11/17 02/12/17 15:00 23:00 07:00 Intake Total 655 ml Output Total 1025 ml 1025 ml 875 ml Balance -1025 ml -370 ml -875 ml CRYSTAL ARCHULETA MD Feb 12, 2017 15:41
[2017-02-12] MEDS ORDERED: diphenhydrAMINE 50 MG/ML VIAL IVP ONE ×2 (16:15→18:15)
[2017-02-12] MEDS ORDERED: HYDROCORTISONE SOD SUCC/PF 100 MG/2 ML VIAL. IV ONE (16:15)
[2017-02-12] MEDS ORDERED: FAMOTIDINE 20 MG/2 ML VIAL IVP ONE (16:15)
--- NOTE | 2017-02-12 17:05 | PDOC ---
PROGRESS NOTES Subjective Subjective Patient continues to complain about by mouth status initially with thickened liquids requesting water recurrently despite a explanation that she has ongoing aspiration risk. In fact nursing reports significant evidence of aspiration with all by mouth intake. Patient will be made nothing by mouth at this time and due to lack of significant nutrition over the last 48 hours will be started on TPN. Patient also having evidence of progressive GI bleed with low hemoglobin less than 7 and black tarry material from rectal tube. Patient's primary status and cardiac status are stable although episodes of tachycardia are noted being controlled with dig by cardiology. Patient is having significant peripheral edema of hands and legs but having good urine output. Objective Objective Vital Signs Date Time Temp Pulse Resp B/P (MAP) Pulse Ox O2 Delivery O2 Flow Rate FiO2 02/12/17 15:00 130 18 116/60 (78) 96 Nasal Cannula 2.0 02/12/17 14:21 97.4 97.4 Intake and Output 02/12/17 07:00 Intake Total 655 ml Output Total 2925 ml Balance -2270 ml Intake Oral 200 ml IV Total 455 ml Output Urine Total 2925 ml Physical Exam Abdomen: Normal bowel sounds Heart: Other (irregularly irregular) Extremities: Other (2+ edema) General: Alert Lungs: Clear to auscultation Assessment Assessment Problems Medical Problems: (1) Acute on chronic congestive heart failure Status: Acute (2) COPD (chronic obstructive pulmonary disease) Status: Acute (3) Healthcare-associated pneumonia Status: Acute (4) Morbid obesity Status: Acute (5) Sepsis Status: Acute (6) Severe protein-calorie malnutrition Status: Acute (7) Urinary tract infection Status: Acute 1. Acute on chronic respiratory failure. 2. Anemia due to GI bleed 3. Healthcare acquired pneumonia. 4. Sepsis syndrome 5. Chronic obstructive pulmonary disease with exacerbation. 6. Atrial fibrillation with rapid ventricular response. 7. Obstructive sleep apnea. 8. Aortic stenosis. 9. Morbid obesity. 10.Hypertension. 11.Type 2 diabetes. 12.Hypothyroidism. 13.Generalized anxiety disorder. 14.Severe protein-calorie malnutrition. 15.Urinary tract infection. 16. History of diastolic congestive heart failure possibly due to cor pulmonale 17.Status post recent left total knee revision 18.coagulopathy on coumadin 19.Blood culture + coag neg staph 1/6bottles, possible contaminant- see above 20.Pulmonary HTN 21 Chronic diastolic CHF Plan Plan of Care Proceed with nothing by mouth status. Start TPN. Give 2 units packed red blood cells. Give FFP and vitamin K. Continue pulmonary and cardiac care. Continue IV antibiotics and ID involvement. Comment Review of Relevant I have reviewed the following items donald (where applicable) has been applied. Labs Laboratory Tests Test 02/10/17 17:06 02/10/17 17:45 02/10/17 19:44 02/10/17 21:40 Glucose (Fingerstick) 280 mg/dL (70-99) 270 mg/dL (70-99) 226 mg/dL (70-99) Clostridium difficile Toxin (PCR) Negative (Negative) Test 02/11/17 00:47 02/11/17 06:15 02/11/17 08:56 02/11/17 12:15 Glucose (Fingerstick) 258 mg/dL (70-99) 297 mg/dL (70-99) 285 mg/dL (70-99) White Blood Count 15.1 x10^3/uL (4.0-11.0) Red Blood Count 2.46 x10^6/uL (3.50-5.40) Hemoglobin 7.3 g/dL (12.0-15.5) Hematocrit 22.8 % (36.0-47.0) Mean Corpuscular Volume 93 fL (79-100) Mean Corpuscular Hemoglobin 30 pg (25-35) Mean Corpuscular Hemoglobin Concent 32 g/dL (31-37) Red Cell Distribution Width 16.3 % (11.5-14.5) Platelet Count 251 x10^3/uL (140-400) Sodium Level 149 mmol/L (136-145) Potassium Level 5.2 mmol/L (3.5-5.1) Chloride Level 110 mmol/L (98-107) Carbon Dioxide Level 36 mmol/L (21-32) Anion Gap 3 (6-14) Blood Urea Nitrogen 47 mg/dL (7-20) Creatinine 0.7 mg/dL (0.6-1.0) Estimated GFR (Cockcroft-Gault) 80.9 Glucose Level 273 mg/dL (70-99) Calcium Level 8.1 mg/dL (8.5-10.1) Test 02/11/17 12:24 02/11/17 16:45 02/11/17 17:12 02/11/17 22:19 Glucose (Fingerstick) 255 mg/dL (70-99) 319 mg/dL (70-99) 262 mg/dL (70-99) Prothrombin Time 18.0 SEC (11.7-14.0) Prothromb Time International Ratio 1.6 (0.8-1.1) Test 02/12/17 01:09 02/12/17 06:48 02/12/17 06:50 02/12/17 07:10 Glucose (Fingerstick) 210 mg/dL (70-99) 190 mg/dL (70-99) White Blood Count 14.7 x10^3/uL (4.0-11.0) Red Blood Count 2.25 x10^6/uL (3.50-5.40) Hemoglobin 6.7 g/dL (12.0-15.5) Hematocrit 20.9 % (36.0-47.0) Mean Corpuscular Volume 93 fL (79-100) Mean Corpuscular Hemoglobin 30 pg (25-35) Mean Corpuscular Hemoglobin Concent 32 g/dL (31-37) Red Cell Distribution Width 16.6 % (11.5-14.5) Platelet Count 244 x10^3/uL (140-400) Sodium Level 150 mmol/L (136-145) Potassium Level 4.6 mmol/L (3.5-5.1) Chloride Level 112 mmol/L (98-107) Carbon Dioxide Level 38 mmol/L (21-32) Anion Gap 0 (6-14) Blood Urea Nitrogen 41 mg/dL (7-20) Creatinine 0.7 mg/dL (0.6-1.0) Estimated GFR (Cockcroft-Gault) 80.9 Glucose Level 205 mg/dL (70-99) Calcium Level 8.5 mg/dL (8.5-10.1) Phosphorus Level 2.6 mg/dL (2.6-4.7) Magnesium Level 2.5 mg/dL (1.8-2.4) Prothrombin Time 19.5 SEC (11.7-14.0) Prothromb Time International Ratio 1.8 (0.8-1.1) Test 02/12/17 08:53 02/12/17 10:10 02/12/17 12:40 Glucose (Fingerstick) 211 mg/dL (70-99) 243 mg/dL (70-99) Hemoglobin 6.6 g/dL (12.0-15.5) Hematocrit 20.8 % (36.0-47.0) Mean Corpuscular Hemoglobin Concent 32 g/dL (31-37) Laboratory Tests Test 02/11/17 17:12 02/11/17 22:19 02/12/17 01:09 02/12/17 06:48 Glucose (Fingerstick) 319 mg/dL (70-99) 262 mg/dL (70-99) 210 mg/dL (70-99) 190 mg/dL (70-99) Test 02/12/17 06:50 02/12/17 07:10 02/12/17 08:53 02/12/17 10:10 White Blood Count 14.7 x10^3/uL (4.0-11.0) Red Blood Count 2.25 x10^6/uL (3.50-5.40) Hemoglobin 6.7 g/dL (12.0-15.5) 6.6 g/dL (12.0-15.5) Hematocrit 20.9 % (36.0-47.0) 20.8 % (36.0-47.0) Mean Corpuscular Volume 93 fL (79-100) Mean Corpuscular Hemoglobin 30 pg (25-35) Mean Corpuscular Hemoglobin Concent 32 g/dL (31-37) 32 g/dL (31-37) Red Cell Distribution Width 16.6 % (11.5-14.5) Platelet Count 244 x10^3/uL (140-400) Sodium Level 150 mmol/L (136-145) Potassium Level 4.6 mmol/L (3.5-5.1) Chloride Level 112 mmol/L (98-107) Carbon Dioxide Level 38 mmol/L (21-32) Anion Gap 0 (6-14) Blood Urea Nitrogen 41 mg/dL (7-20) Creatinine 0.7 mg/dL (0.6-1.0) Estimated GFR (Cockcroft-Gault) 80.9 Glucose Level 205 mg/dL (70-99) Calcium Level 8.5 mg/dL (8.5-10.1) Phosphorus Level 2.6 mg/dL (2.6-4.7) Magnesium Level 2.5 mg/dL (1.8-2.4) Prothrombin Time 19.5 SEC (11.7-14.0) Prothromb Time International Ratio 1.8 (0.8-1.1) Glucose (Fingerstick) 211 mg/dL (70-99) Test 02/12/17 12:40 Glucose (Fingerstick) 243 mg/dL (70-99) Microbiology 02/05/17 Blood Culture - Final, Complete NO GROWTH AFTER 5 DAYS 02/05/17 Urine Culture - Final, Complete 02/05/17 Urine Culture Result 1 (BISI) - Final, Complete Medications Current Medications Sodium Chloride 1,000 ml @ 620 mls/hr Q1H37M IV Last administered on 10:43; Start 02/05/17 at 09:05; Stop 02/05/17 at 12:05; Status DC Albuterol/ Ipratropium (Duoneb) 6 ml 1X ONCE NEB Last administered on 09:18; Start 02/05/17 at 09:15; Stop 02/05/17 at 09:16; Status DC Meropenem 1 gm/ Sodium Chloride 100 ml @ 200 mls/hr Q8HRS IV ; Start 02/05/17 at 14:00; Status UNV Vancomycin HCl (Vanco Per Pharmacy) 1 each PRN DAILY PRN MC SEE COMMENTS Last administered on 02/10/17 14:10; Start 02/05/17 at 11:30; Stop 02/11/17 at 08 :13; Status DC Levofloxacin/ Dextrose (Levaquin Per Pharmacy) 1 each PRN DAILY PRN MC SEE COMMENTS; Start 02/05/17 at 11:30; Stop 02/09/17 at 08:20; Status DC Vancomycin HCl 2 gm/Dextrose 500 ml @ 250 mls/hr 1X ONCE IV Last administered on 02/05/17 13:20; Start 02/05/17 at 12:00; Stop 02/05/17 at 13 :59; Status DC Meropenem (Merrem) 1 gm 1X ONCE IVP Last administered on 02/05/17 11:37; Start 02/05/17 at 12:00; Stop 02/05/17 at 19:17; Status DC Levofloxacin/ Dextrose 150 ml @ 100 mls/hr 1X ONCE IV Last administered on 11:38; Start 02/05/17 at 12:00; Stop 02/05/17 at 13:29; Status DC Methylprednisolone Sodium Succinate (SOLU-Medrol 125MG VIAL) 125 mg 1X ONCE IV Last administered on 02/05/17 12:06; Start 02/05/17 at 11:45; Stop at 11:59; Status DC Ondansetron HCl (Zofran) 4 mg PRN Q8HRS PRN IV NAUSEA/VOMITING; Start at 12:00; Stop 02/06/17 at 11:59; Status DC Sodium Chloride 1,000 ml @ 75 mls/hr [id number] IV Last administered on 16:24; Start 02/05/17 at 11:46; Stop 02/06/17 at 11:19; Status DC Acetaminophen (Tylenol) 650 mg PRN Q4HRS PRN PO FEVER Last administered on 03:34; Start 02/05/17 at 12:00; Stop 02/06/17 at 11:59; Status DC Albuterol/ Ipratropium (Duoneb) 3 ml RTQID NEB Last administered on 02/06/17 09:33; Start 02/05/17 at 12:00; Stop 02/06/17 at 11:59; Status DC Dobutamine HCl 2000 mg/Dextrose 250 ml @ 4.59 mls/hr CONT IV ; Start 02/05/17 at 12:00; Stop 02/05/17 at 13:17; Status DC Dobutamine HCl/ Dextrose 250 ml @ 18.375 mls/ hr CONT PRN IV SEE I/O RECORD; Start 02/05/17 at 13:15 Meropenem (Merrem) 1 gm Q8HRS IVP Last administered on 02/05/17 21:03; Start 02/05/17 at 21:00; Stop 02/05/17 at 21:53; Status DC Levofloxacin/ Dextrose 150 ml @ 100 mls/hr Q24H IV Last administered on 20:36; Start 02/06/17 at 12:00; Stop 02/09/17 at 08:24; Status DC Vancomycin HCl 1.75 gm/Dextrose/ Sodium Chloride 500 ml @ 250 mls/hr Q18H IV Last administered on 02/07/17 19:48; Start 02/06/17 at 07:00; Stop 02/08/17 at 13:27; Status DC Vancomycin HCl 1 each 1X ONCE MC Last administered on 02/07/17 00:30; Start 02/07/17 at 00:30; Stop 02/07/17 at 00:31; Status DC Methylprednisolone Sodium Succinate (SOLU-Medrol 40MG VIAL) 40 mg Q8HRS IV Last administered on 02/11/17 06:02; Start 02/05/17 at 16:00; Stop 02/11/17 at 13:17; Status DC Enoxaparin Sodium (Lovenox 40mg Syringe) 40 mg Q24H SQ Last administered on 16:24; Start 02/05/17 at 16:00; Stop 02/05/17 at 21:19; Status DC Aspirin (Children'S Aspirin) 81 mg DAILY PO Last administered on 02/08/17 08: 41; Start 02/06/17 at 09:00; Stop 02/12/17 at 09:29; Status DC Diltiazem HCl (Cardizem 24hr Cd) 120 mg QHS PO Last administered on 02/11/17 22:14; Start 02/05/17 at 21:00 Ferrous Sulfate (Feosol) 325 mg BID PO Last administered on 02/12/17 08:51; Start 02/05/17 at 21:00 Acetaminophen/ Hydrocodone Bitart (Lortab 7.5/325) 2 tab PRN Q6HRS PRN PO PAIN Last administered on 02/10/17 19:56; Start 02/05/17 at 17:15 Levothyroxine Sodium (Synthroid) 137 mcg DAILYAC PO Last administered on 08:51; Start 02/06/17 at 07:30 Warfarin Sodium (Coumadin) 5 mg DAILY16 PO Last administered on 02/07/17 17: 28; Start 02/05/17 at 22:00; Stop 02/08/17 at 09:53; Status DC Citalopram Hydrobromide (CeleXA) 40 mg DAILY PO Last administered on 08:51; Start 02/06/17 at 09:00 Glimepiride (Amaryl) 4 mg BIDWMEALS PO Last administered on 02/12/17 08:51; Start 02/05/17 at 17:30 Losartan Potassium (Cozaar) 25 mg DAILY PO ; Start 02/06/17 at 09:00; Stop at 11:22; Status DC Atorvastatin Calcium (Lipitor) 80 mg QHS PO Last administered on 02/11/17 22: 15; Start 02/05/17 at 21:00 Insulin Aspart (NovoLOG) 0-12 UNITS QIDACHS SQ Last administered on 02/12/17 12:44; Start 02/05/17 at 18:00 Norepinephrine Bitartrate 250 ml @ 0 mls/hr CONT PRN IV SEE I/O RECORD; Start 02/05/17 at 19:00 Albuterol/ Ipratropium (Duoneb) 3 ml STK-MED ONCE .ROUTE ; Start 02/05/17 at 19 :16; Stop 02/05/17 at 19:17; Status DC Meropenem (Merrem) 1 gm Q8HRS IVP Last administered on 02/08/17 05:33; Start 02/06/17 at 06:00; Stop 02/08/17 at 09:00; Status DC Warfarin Sodium (Coumadin Per Physician) 1 each PRN DAILY PRN MC SEE COMMENTS; Start 02/06/17 at 07:45; Status Cancel Lactobacillus Rhamnosus (Culturelle) 1 cap BID PO Last administered on 08:51; Start 02/06/17 at 09:00 Albuterol/ Ipratropium (Duoneb) 3 ml RTQID NEB Last administered on 02/12/17 12:34; Start 02/06/17 at 16:00 Alprazolam (Xanax) 0.5 mg PRN TID PRN PO ANXIETY / AGITATION Last administered on 02/11/17 22:14; Start 02/06/17 at 17:30 Metformin HCl (Glucophage) 500 mg BIDWMEALS PO Last administered on 02/12/17 08:51; Start 02/07/17 at 12:00 Polyethylene Glycol (miraLAX PACKET) 17 gm PRN DAILY PRN PO CONSTIPATION Last administered on 02/07/17 21:29; Start 02/07/17 at 20:00 Alteplase, Recombinant (Cathflo) 2 mg 1X ONCE INT CAT Last administered on 07:32; Start 02/08/17 at 08:00; Stop 02/08/17 at 08:01; Status DC Pantoprazole Sodium 80 mg/ Sodium Chloride 100 ml @ 10 mls/hr Q10H IV Last administered on 02/11/17 22:31; Start 02/08/17 at 13:30 Vancomycin HCl 1.75 gm/Dextrose/ Sodium Chloride 500 ml @ 250 mls/hr Q18H IV Last administered on 02/11/17 02:15; Start 02/08/17 at 21:00; Stop 02/11/17 at 08:15; Status DC Digoxin (Lanoxin) 500 mcg 1X ONCE IV Last administered on 02/08/17 18:30; Start 02/08/17 at 18:15; Stop 02/08/17 at 18:26; Status DC Digoxin (Lanoxin) 250 mcg 1X ONCE IV Last administered on 02/08/17 19:56; Start 02/08/17 at 19:45; Stop 02/08/17 at 19:46; Status DC Fentanyl Citrate (Fentanyl 2ml Vial) 50 mcg PRN Q3HRS PRN IV PAIN Last administered on 02/08/17 21:09; Start 02/08/17 at 20:30 Albumin Human 500 ml @ 125 mls/hr 1X ONCE IV Last administered on 02/08/17 23:38; Start 02/08/17 at 22:00; Stop 02/09/17 at 01:59; Status DC Phytonadione 10 mg/Sodium Chloride 51 ml @ 102 mls/hr 1X ONCE IV Last administered on 02/09/17 07:24; Start 02/09/17 at 08:00; Stop 02/09/17 at 08 :29; Status DC Throat Lozenges (Chloraseptic) 1 spray PRN Q2HR PRN PO SORE THROAT Last administered on 02/09/17 13:40; Start 02/09/17 at 08:45 Digoxin (Lanoxin) 125 mcg 1X ONCE IV Last administered on 02/10/17 13:02; Start 02/10/17 at 12:15; Stop 02/10/17 at 12:16; Status DC Insulin Aspart (NovoLOG) 6 units Q6HRS SQ Last administered on 02/11/17 06:20 ; Start 02/10/17 at 15:00; Stop 02/11/17 at 11:54; Status DC Sodium Chloride (Saline Mist Nasal) 1 nara PRN Q1HR PRN NS NASAL CONGESTION; Start 02/10/17 at 17:30 Vancomycin HCl 1 each 1X ONCE MC ; Start 02/11/17 at 20:30; Stop 02/11/17 at 20:31; Status Cancel Insulin Aspart (NovoLOG) 10 units Q6HRS SQ Last administered on 02/12/17 12: 43; Start 02/11/17 at 12:00 Methylprednisolone Sodium Succinate (SOLU-Medrol 40MG VIAL) 40 mg DAILY IV Last administered on 02/12/17 08:51; Start 02/12/17 at 09:00 Sodium Chloride 1,000 ml @ 85 mls/hr [id number] IV Last administered on 14:21; Start 02/11/17 at 14:00; Stop 02/12/17 at 01:45; Status DC Artificial Tears (Artificial Tears) 1 drop PRN Q15MIN PRN OU DRY EYE; Start at 19:15 Phytonadione (Vitamin K Ampule) 5 mg 1X ONCE SQ Last administered on 11:32; Start 02/12/17 at 09:45; Stop 02/12/17 at 09:46; Status DC Info 1 each PRN DAILY PRN MC SEE COMMENTS Last administered on 02/12/17 14:13 ; Start 02/12/17 at 09:45 Sodium Chloride 60 meq/Potassium Chloride 25 meq/ Potassium Phosphate 13.6 mmol/ Magnesium Sulfate 5 meq/ Calcium Gluconate 10 meq/ Multivitamins 10 ml/Chromium / Copper/Manganese/ Seleni/Zn 1 ml/ Potassium Acetate 25 meq/Total Parenteral Nutrition/Amino Acids/Dextrose/ Fat Emuls... 1,512 ml @ 63 mls/hr TPN CONT IV ; Start 02/12/17 at 22:00; Stop 02/13/17 at 21:59 Digoxin (Lanoxin) 250 mcg DAILY IV Last administered on 12/22/17at 14:08; Start 02/12/17 at 14:30 Hydrocortisone Sodium Succinate (Solu-CORTEF) 125 mg 1X ONCE IV ; Start at 16:15; Stop 02/12/17 at 16:16; Status DC Diphenhydramine HCl (Benadryl) 50 mg 1X ONCE IVP ; Start 02/12/17 at 16:15; Stop 02/12/17 at 16:16; Status DC Famotidine (Pepcid Vial) 40 mg 1X ONCE IVP ; Start 02/12/17 at 16:15; Stop at 16:16; Status DC Active Scripts Active Reported Ferrous Sulfate 325 Mg Tablet 1 Tab PO BID LAST DOSE GIVEN: DATE:01/08/17 TIME:9:00 a.m. Warfarin Sodium 5 Mg Tablet 1 Tab PO DAILY 30 Days LAST DOSE GIVEN: DATE:01/08/17 TIME:2:00 p.m Levothyroxine Sodium 137 Mcg Tablet 137 Mcg PO DAILYAC LAST DOSE GIVEN: DATE:01/08/17 TIME:7:30 a.m. Furosemide 40 Mg Tablet 40 Mg PO DAILY LAST DOSE GIVEN: DATE:01/07/17 TIME:9:00 a.m. Aspirin 81 Mg Tab.chew 1 Tab PO DAILY LAST DOSE GIVEN: DATE:01/08/17 TIME:9:00 a.m. Hydrocodone-Apap 7.5-325 (Hydrocodone Bit/Acetaminophen) 1 Each Tablet 1-2 Tab PO PRN Q6HRS PRN Took at 12:30 today may take anytime as needed for pain every 4 hours Amaryl (Glimepiride) 4 Mg Tablet 1 Tab PO BID LAST DOSE GIVEN: DATE:01/08/17 TIME:9:00 a.m. Potassium Chloride 20 Meq Tab.er.prt 1 Tab PO WEEKLY Meds not given this hospital admission. May resume home medications as approved by Physician. TIME: 8:30 a.m. NEXT DOSE DUE: DATE: 12-28-15 TIME: 8:30 a.m. Metolazone 5 Mg Tablet 5 Mg PO WEEKLY Meds not given this hospital admission. May resume home medications as approved by Physician. TIME: 8:30 a.m. NEXT DOSE DUE: DATE: 12-28-15 TIME: 8:30 a.m. Lexapro (Escitalopram Oxalate) 10 Mg Tablet 20 Mg PO DAILY LAST DOSE GIVEN: DATE:01/08/17 TIME:9:00 a.m. NEXT DOSE DUE: DATE: 12-28-15 TIME: 8:30 a.m. Cardizem Cd (Diltiazem Hcl) 240 Mg Cap.er.24h 120 Mg PO HS LAST DOSE GIVEN: DATE:01/07/17 TIME:9:00 p.m. NEXT DOSE DUE: DATE: 12-27-15 TIME: 9:00 p.m. Losartan Potassium 100 Mg Tablet 25 Mg PO DAILY LAST DOSE GIVEN: DATE:01/07/17 TIME:9:00 a.m. Crestor (Rosuvastatin Calcium) 40 Mg Tablet 40 Mg PO QHS LAST DOSE GIVEN: DATE:01/07/17 TIME:9:00 p.m. NEXT DOSE DUE: DATE: 12-27-15 TIME: 9:00 p.m. Vitals/I & O Vital Sign - Last 24 Hours 02/11/17 02/11/17 02/11/17 02/11/17 17:00 18:00 19:00 20:00 Pulse 119 130 137 Resp 18 18 18 B/P (MAP) 90/68 (75) 108/56 (73) 98/54 (69) Pulse Ox 98 98 98 O2 Delivery Nasal Cannula Nasal Cannula Nasal Cannula O2 Flow Rate 2.0 2.0 2.0 2.0 02/11/17 02/11/17 02/11/17 02/11/17 20:00 20:00 20:25 21:00 Temp 99.5 99.5 Pulse 126 153 Resp 18 18 B/P (MAP) 84/51 (62) 97/55 (69) Pulse Ox 98 95 98 O2 Delivery Nasal Cannula Nasal Cannula Nasal Cannula Nasal Cannula O2 Flow Rate 2.0 2.0 3.0 2.0 02/11/17 02/11/17 02/11/17 02/11/17 22:00 22:14 23:00 23:59 Pulse 134 128 142 Resp 18 18 B/P (MAP) 110/70 (83) 110/70 128/57 (80) Pulse Ox 98 98 O2 Delivery Nasal Cannula Nasal Cannula Nasal Cannula O2 Flow Rate 2.0 2.0 2.0 02/12/17 02/12/17 02/12/17 02/12/17 00:00 00:00 01:00 02:00 Temp 98.5 98.5 Pulse 122 140 150 Resp 23 34 21 B/P (MAP) 137/68 (91) 104/65 (78) 68/51 (57) Pulse Ox 98 98 98 O2 Delivery Nasal Cannula Nasal Cannula Nasal Cannula O2 Flow Rate 2.0 2.0 2.0 2.0 02/12/17 02/12/17 02/12/17 02/12/17 03:00 04:00 04:00 04:00 Temp 98.3 98.3 Pulse 120 110 Resp 21 21 B/P (MAP) 109/51 (70) 91/54 (66) Pulse Ox 98 98 O2 Delivery Nasal Cannula Nasal Cannula Nasal Cannula O2 Flow Rate 2.0 2.0 2.0 2.0 02/12/17 02/12/17 02/12/17 02/12/17 05:00 06:00 07:00 08:00 Temp 97.3 97.3 Pulse 120 119 139 112 Resp 21 21 26 16 B/P (MAP) 107/52 (70) 100/58 (72) 108/63 (78) 138/88 (105) Pulse Ox 98 93 94 97 O2 Delivery Nasal Cannula Nasal Cannula Nasal Cannula Nasal Cannula O2 Flow Rate 2.0 2.0 2.0 2.0 02/12/17 02/12/17 02/12/17 02/12/17 08:00 09:00 09:06 10:00 Pulse 131 145 Resp 21 21 B/P (MAP) 134/80 (98) 195/75 (115) Pulse Ox 98 95 98 O2 Delivery Nasal Cannula Nasal Cannula Nasal Cannula O2 Flow Rate 2.0 2.0 3.0 2.0 02/12/17 02/12/17 02/12/17 02/12/17 11:00 11:39 11:54 12:00 Temp 97.3 97.6 97.3 97.6 Pulse 128 120 133 Resp 20 22 32 B/P (MAP) 122/65 (84) 107/62 98/69 Pulse Ox 98 O2 Delivery Nasal Cannula O2 Flow Rate 2.0 2.0 02/12/17 02/12/17 02/12/17 02/12/17 12:00 12:10 12:25 12:34 Temp 97.4 97.4 Pulse 128 124 129 Resp 23 30 24 B/P (MAP) 98/69 (79) 102/64 102/62 Pulse Ox 97 95 O2 Delivery Nasal Cannula Nasal Cannula O2 Flow Rate 2.0 3.0 02/12/17 02/12/17 02/12/17 02/12/17 13:00 14:00 14:06 14:08 Temp 97.3 97.3 Pulse 122 126 144 154 Resp 22 16 22 B/P (MAP) 111/62 (78) 120/63 (82) 109/61 120/53 Pulse Ox 96 96 O2 Delivery Nasal Cannula Nasal Cannula O2 Flow Rate 2.0 2.0 02/12/17 02/12/17 14:21 15:00 Temp 97.4 97.4 Pulse 145 130 Resp 22 18 B/P (MAP) 113/60 116/60 (78) Pulse Ox 96 O2 Delivery Nasal Cannula O2 Flow Rate 2.0 Intake and Output 02/11/17 02/11/17 02/12/17 15:00 23:00 07:00 Intake Total 655 ml Output Total 1025 ml 1025 ml 875 ml Balance -1025 ml -370 ml -875 ml JUAN COOK MD Feb 12, 2017 17:05
[2017-02-12] MEDS: PANTOPRAZOLE SODIUM IV DRIP 80 MG in IV NORMAL SALINE 100ML 100 ML IV SCH ×2 (17:17→17:30)
[2017-02-12] MEDS ORDERED: TOTAL PARENTERAL NUTRITION IV SCH ×11 (22:00)
[2017-02-12] MEDS ORDERED: AMINO ACIDS IV SCH ×11 (22:00)
[2017-02-12] MEDS ORDERED: DEXTROSE 70% IV SCH ×11 (22:00)
[2017-02-12] MEDS ORDERED: [UNRECOGNIZED DRUG - OTHER] IV SCH ×11 (22:00)
[2017-02-12] MEDS: ATORVASTATIN CALCIUM 40 MG TABLET. PO SCH (23:30)
[2017-02-12] MEDS: ALPRAZolam 0.5 MG TABLET PO PRN (23:30)
[2017-02-13] VITALS (24 sets, daily range): BP systolic 105–156; BP diastolic 52–81
[2017-02-13] MEDS ORDERED: IOHEXOL 300 MG/ML 100ML VIAL. IV ONE (03:30)
[2017-02-13] MEDS: PANTOPRAZOLE SODIUM IV DRIP 80 MG in IV NORMAL SALINE 100ML 100 ML IV SCH ×2 (03:42→13:30)
[2017-02-13] MEDS: INSULIN ASPART 300 UNITS/3 ML INSULN.PEN SQ SCH ×7 (06:00→21:55)
--- NOTE | 2017-02-13 06:05 | RAD ---
EXAM: CT ANGIOGRAPHY OF THE ABDOMEN AND PELVIS WITH AND WITHOUT INTRAVENOUS CONTRAST. HISTORY: Gastrointestinal hemorrhage. TECHNIQUE: Computed tomographic angiography of the abdomen and pelvis was performed before and after the intravenous administration of 90 mL Omnipaque 300. 3-D maximum intensity projections were also performed. COMPARISON: None. FINDINGS: There are limitations from habitus, the arms being down, and limited contrast opacification. There is ectasia of the infrarenal aorta with maximum diameter 2.5 cm. This is contiguous with an aneurysm of the left common iliac artery measures 2.6 cm. There are moderate atherosclerotic calcifications of both common/external iliac systems without stenosis. There is at least moderate stenosis at the origin of the left internal iliac artery. There are moderate atherosclerotic calcifications at the origin of the celiac axis resulting in moderate stenosis. There is severe stenosis at the origin of the superior mesenteric artery. The inferior mesenteric artery is patent but at least moderately stenotic at its origin. There is at least moderate stenosis at the origin of the right renal artery. There is mild stenosis on the left. Images of the lung bases reveal coronary artery bypass grafting. The heart is moderately enlarged. There are small pleural effusions on the right greater than left. The right lower lobe is mostly atelectatic. There is lesser atelectasis on the left. Bone windows reveal no suspicious lesions. A nasogastric tube has its tip in the distal stomach. A rectal catheter is also in place. The bladder is decompressed by a Rivas catheter. No clear active extravasation is identified. There is no obstruction. Presacral edema likely reflects systemic edema. There is also diffuse body wall edema. There is no significant ascites. The liver, pancreas, adrenal glands and spleen are unremarkable. A right renal cyst measures 8.3 cm. There are small cysts on the left. Left renal calculi measure up to 6 mm. IMPRESSION: 1. Limited study. No active extravasation is identified. 2. 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 3. 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 4. Renal artery stenosis is moderate on the right and mild on the left. 5. Atelectasis of the right lower lobe. Small to moderate pleural effusions on the right greater than left. Anasarca. Moderate cardiomegaly. *One or more of the following individualized dose reduction techniques were utilized for this examination: 1. Automated exposure control. 2. Adjustment of the mA and/or kV according to patient size. 3. Use of iterative reconstruction technique. Electronically signed by: Valarie Chavira MD (02/13/2017 6:02 AM) [facility]
[2017-02-13 06:41] LABS: HEMATOCRIT 25.8 % (36.0-47.0); HEMOGLOBIN 8.4 g/dL (12.0-15.5); RED BLOOD COUNT 2.81 x10^6/uL (3.50-5.40); RED CELL DISTRIBUTION WIDTH 15.8 % (11.5-14.5); WHITE BLOOD COUNT 10.8 x10^3/uL (4.0-11.0)
[2017-02-13 06:50] LABS: ALBUMIN 2.4 g/dL (3.4-5.0); CALCIUM 8.2 mg/dL (8.5-10.1); CREATININE 0.7 mg/dL (0.6-1.0); GFR 80.9; MAGNESIUM 2.5 mg/dL (1.8-2.4); PHOSPHORUS 3.7 mg/dL (2.6-4.7); POTASSIUM 4.8 mmol/L (3.5-5.1); TOTAL BILIRUBIN 0.8 mg/dL (0.2-1.0); TOTAL PROTEIN 4.9 g/dL (6.4-8.2)
[2017-02-13] MEDS: LEVOTHYROXINE 137 MCG TABLET PO SCH ×2 (07:30→08:13)
[2017-02-13] MEDS: IPRATRPIUM/ALBUTEROL 0.5/2.5MG 3 ML NEBU. NEB SCH ×5 (07:54→23:35)
[2017-02-13] MEDS: GLIMEPIRIDE 2 MG TABLET. PO SCH ×3 (08:00→17:00)
[2017-02-13] MEDS: LACTOBACILLUS RHAMNOSUS GG 1 CAPSULE. PO SCH ×3 (08:12→20:19)
[2017-02-13] MEDS: CITALOPRAM 20 MG TABLET. PO SCH ×2 (08:12→09:00)
[2017-02-13] MEDS: methylPREDNISolone SOD SUCC PF 40 MG/ML VIAL. IV SCH ×3 (08:13→22:12)
[2017-02-13] MEDS: ALPRAZolam 0.5 MG TABLET PO PRN (08:13)
[2017-02-13] MEDS: DIGOXIN IV 500 MCG/2 ML AMPUL. IV SCH (08:14)
[2017-02-13] MEDS: FERROUS SULFATE ORAL 300 MG/5 ML SOLUTION. PO SCH ×3 (08:20→20:19)
[2017-02-13] MEDS: TPN PER PHARMACY MC PRN (12:40)
--- NOTE | 2017-02-13 12:56 | PDOC ---
PULMONARY PROGRESS NOTES Subjective MORE SOA/ WHEEZING BACK ON BIPAP Vitals Vital Signs Date Time Temp Pulse Resp B/P (MAP) Pulse Ox O2 Delivery O2 Flow Rate FiO2 02/13/17 12:14 94 BiPAP/CPAP 02/13/17 11:00 87 23 153/80 (104) 02/13/17 08:00 96.9 4.0 96.9 ROS: No Nausea, No Chest Pain, No Abdominal Pain, No Increase Cough General: Alert, No acute distress Lungs: Clear, Wheezing (bilateral) Cardiovascular: S1, S2 Abdomen: Soft, Other (obese) Neuro Exam: Alert Extremities: Other (2+edema) Labs Laboratory Tests Test 02/11/17 16:45 02/11/17 17:12 02/11/17 22:19 02/12/17 01:09 Prothrombin Time 18.0 SEC (11.7-14.0) Prothromb Time International Ratio 1.6 (0.8-1.1) Glucose (Fingerstick) 319 mg/dL (70-99) 262 mg/dL (70-99) 210 mg/dL (70-99) Test 02/12/17 06:48 02/12/17 06:50 02/12/17 07:10 02/12/17 08:53 Glucose (Fingerstick) 190 mg/dL (70-99) 211 mg/dL (70-99) White Blood Count 14.7 x10^3/uL (4.0-11.0) Red Blood Count 2.25 x10^6/uL (3.50-5.40) Hemoglobin 6.7 g/dL (12.0-15.5) Hematocrit 20.9 % (36.0-47.0) Mean Corpuscular Volume 93 fL (79-100) Mean Corpuscular Hemoglobin 30 pg (25-35) Mean Corpuscular Hemoglobin Concent 32 g/dL (31-37) Red Cell Distribution Width 16.6 % (11.5-14.5) Platelet Count 244 x10^3/uL (140-400) Sodium Level 150 mmol/L (136-145) Potassium Level 4.6 mmol/L (3.5-5.1) Chloride Level 112 mmol/L (98-107) Carbon Dioxide Level 38 mmol/L (21-32) Anion Gap 0 (6-14) Blood Urea Nitrogen 41 mg/dL (7-20) Creatinine 0.7 mg/dL (0.6-1.0) Estimated GFR (Cockcroft-Gault) 80.9 Glucose Level 205 mg/dL (70-99) Calcium Level 8.5 mg/dL (8.5-10.1) Phosphorus Level 2.6 mg/dL (2.6-4.7) Magnesium Level 2.5 mg/dL (1.8-2.4) Prothrombin Time 19.5 SEC (11.7-14.0) Prothromb Time International Ratio 1.8 (0.8-1.1) Test 02/12/17 10:10 02/12/17 12:40 02/12/17 18:14 02/12/17 23:51 Hemoglobin 6.6 g/dL (12.0-15.5) Hematocrit 20.8 % (36.0-47.0) Mean Corpuscular Hemoglobin Concent 32 g/dL (31-37) Glucose (Fingerstick) 243 mg/dL (70-99) 199 mg/dL (70-99) 185 mg/dL (70-99) Test 02/13/17 06:15 02/13/17 06:21 02/13/17 11:20 White Blood Count 10.8 x10^3/uL (4.0-11.0) Red Blood Count 2.81 x10^6/uL (3.50-5.40) Hemoglobin 8.4 g/dL (12.0-15.5) Hematocrit 25.8 % (36.0-47.0) Mean Corpuscular Volume 92 fL (79-100) Mean Corpuscular Hemoglobin 30 pg (25-35) Mean Corpuscular Hemoglobin Concent 33 g/dL (31-37) Red Cell Distribution Width 15.8 % (11.5-14.5) Platelet Count 202 x10^3/uL (140-400) Sodium Level 151 mmol/L (136-145) Potassium Level 4.8 mmol/L (3.5-5.1) Chloride Level 111 mmol/L (98-107) Carbon Dioxide Level 39 mmol/L (21-32) Anion Gap 1 (6-14) Blood Urea Nitrogen 29 mg/dL (7-20) Creatinine 0.7 mg/dL (0.6-1.0) Estimated GFR (Cockcroft-Gault) 80.9 BUN/Creatinine Ratio 41 (6-20) Glucose Level 261 mg/dL (70-99) Calcium Level 8.2 mg/dL (8.5-10.1) Phosphorus Level 3.7 mg/dL (2.6-4.7) Magnesium Level 2.5 mg/dL (1.8-2.4) Total Bilirubin 0.8 mg/dL (0.2-1.0) Aspartate Amino Transf (AST/SGOT) 22 U/L (15-37) Alanine Aminotransferase (ALT/SGPT) 24 U/L (14-59) Alkaline Phosphatase 53 U/L (46-116) Total Protein 4.9 g/dL (6.4-8.2) Albumin 2.4 g/dL (3.4-5.0) Albumin/Globulin Ratio 1.0 (1.0-1.7) Triglycerides Level 113 mg/dL (0-150) Glucose (Fingerstick) 242 mg/dL (70-99) 315 mg/dL (70-99) Laboratory Tests Test 02/12/17 18:14 02/12/17 23:51 02/13/17 06:15 02/13/17 06:21 Glucose (Fingerstick) 199 mg/dL (70-99) 185 mg/dL (70-99) 242 mg/dL (70-99) White Blood Count 10.8 x10^3/uL (4.0-11.0) Red Blood Count 2.81 x10^6/uL (3.50-5.40) Hemoglobin 8.4 g/dL (12.0-15.5) Hematocrit 25.8 % (36.0-47.0) Mean Corpuscular Volume 92 fL (79-100) Mean Corpuscular Hemoglobin 30 pg (25-35) Mean Corpuscular Hemoglobin Concent 33 g/dL (31-37) Red Cell Distribution Width 15.8 % (11.5-14.5) Platelet Count 202 x10^3/uL (140-400) Sodium Level 151 mmol/L (136-145) Potassium Level 4.8 mmol/L (3.5-5.1) Chloride Level 111 mmol/L (98-107) Carbon Dioxide Level 39 mmol/L (21-32) Anion Gap 1 (6-14) Blood Urea Nitrogen 29 mg/dL (7-20) Creatinine 0.7 mg/dL (0.6-1.0) Estimated GFR (Cockcroft-Gault) 80.9 BUN/Creatinine Ratio 41 (6-20) Glucose Level 261 mg/dL (70-99) Calcium Level 8.2 mg/dL (8.5-10.1) Phosphorus Level 3.7 mg/dL (2.6-4.7) Magnesium Level 2.5 mg/dL (1.8-2.4) Total Bilirubin 0.8 mg/dL (0.2-1.0) Aspartate Amino Transf (AST/SGOT) 22 U/L (15-37) Alanine Aminotransferase (ALT/SGPT) 24 U/L (14-59) Alkaline Phosphatase 53 U/L (46-116) Total Protein 4.9 g/dL (6.4-8.2) Albumin 2.4 g/dL (3.4-5.0) Albumin/Globulin Ratio 1.0 (1.0-1.7) Triglycerides Level 113 mg/dL (0-150) Test 02/13/17 11:20 Glucose (Fingerstick) 315 mg/dL (70-99) Medications Active Scripts Medications Dose Route/Sig Max Daily Dose Days Date Category Dose Instructions Ferrous Sulfate 325 Mg Tablet 1 Tab PO BID 01/08/17 Reported LAST DOSE GIVEN: DATE:01/08/17 TIME:9:00 a.m. Warfarin Sodium 5 Mg Tablet 1 Tab PO DAILY 30 01/08/17 Reported LAST DOSE GIVEN: DATE:01/08/17 TIME:2:00 p.m Levothyroxine Sodium 137 Mcg Tablet 137 Mcg PO DAILYAC 01/04/17 Reported LAST DOSE GIVEN: DATE:01/08/17 TIME:7:30 a.m. Furosemide 40 Mg Tablet 40 Mg PO DAILY 01/04/17 Reported LAST DOSE GIVEN: DATE:01/07/17 TIME:9:00 a.m. Aspirin 81 Mg Tab.chew 1 Tab PO DAILY 11/16/16 Reported LAST DOSE GIVEN: DATE:01/08/17 TIME:9:00 a.m. Hydrocodone-Apap 7.5-325 (Hydrocodone Bit/Acetaminophen) 1 Each Tablet 1-2 Tab PO PRN Q6HRS PRN 12/26/15 Reported Took at 12:30 today may take anytime as needed for pain every 4 hours Amaryl (Glimepiride) 4 Mg Tablet 1 Tab PO BID 12/16/15 Reported LAST DOSE GIVEN: DATE:01/08/17 TIME:9:00 a.m. Potassium Chloride 20 Meq Tab.er.prt 1 Tab PO WEEKLY 04/17/15 Reported Meds not given this hospital admission. May resume home medications as approved by Physician. TIME: 8:30 a.m. NEXT DOSE DUE: DATE: 12-28-15 TIME: 8:30 a.m. Metolazone 5 Mg Tablet 5 Mg PO WEEKLY 04/16/15 Reported Meds not given this hospital admission. May resume home medications as approved by Physician. TIME: 8:30 a.m. NEXT DOSE DUE: DATE: 12-28-15 TIME: 8:30 a.m. Lexapro (Escitalopram Oxalate) 10 Mg Tablet 20 Mg PO DAILY 05/01/13 Reported LAST DOSE GIVEN: DATE:01/08/17 TIME:9:00 a.m. NEXT DOSE DUE: DATE: 12-28-15 TIME: 8:30 a.m. Cardizem Cd (Diltiazem Hcl) 240 Mg Cap.er.24h 120 Mg PO HS 05/01/13 Reported LAST DOSE GIVEN: DATE:01/07/17 TIME:9:00 p.m. NEXT DOSE DUE: DATE: 12-27-15 TIME: 9:00 p.m. Losartan Potassium 100 Mg Tablet 25 Mg PO DAILY 05/01/13 Reported LAST DOSE GIVEN: DATE:01/07/17 TIME:9:00 a.m. Crestor (Rosuvastatin Calcium) 40 Mg Tablet 40 Mg PO QHS 05/01/13 Reported LAST DOSE GIVEN: DATE:01/07/17 TIME:9:00 p.m. NEXT DOSE DUE: DATE: 12-27-15 TIME: 9:00 p.m. Impression . 1. Acute on chronic hypercapnic respiratory failure multifactorial / increase dyspnea and wheezing today 2. Sepsis per ID 3. JAYLIN 4. COPD with exacerbation 5. Moderate to severe protein-calorie malnutrition. 6. Abnormal chest x-ray 02/13 possible mild CHF 7. Acute Blood loss anemia 8. Coagulopathy 9. Morbid Obesity 10. Dysphagia Plan . BIPAP INCREASE NEBS INCREASE STEROIDS LASIX TODAY FOLLOW DYSPHAGIA DIET KEEP IN ICU D/W RN CCT 25 MIN ALYSSA SLADE MD Feb 13, 2017 12:56
[2017-02-13] MEDS ORDERED: FUROSEMIDE 40 MG/4 ML VIAL. IVP ONE (13:00)
--- NOTE | 2017-02-13 14:14 | PDOC ---
PROGRESS NOTES Subjective Subjective Patient with increased SOB over night. Hgb improved. still with black stools. small amount of blood with removal of Dobbhoff.soa improved with lasix and Bipap Objective Objective Vital Signs Date Time Temp Pulse Resp B/P (MAP) Pulse Ox O2 Delivery O2 Flow Rate FiO2 02/13/17 13:38 94 BiPAP/CPAP 02/13/17 13:00 76 19 156/68 (97) 02/13/17 12:00 97.1 97.1 02/13/17 08:00 4.0 Intake and Output 02/13/17 07:00 Intake Total 1444 ml Output Total 2315 ml Balance -871 ml IV Total 481 ml Blood Product 563 ml Blood Product IV Normal Saline Flush 400 ml Output Urine Total 2315 ml Physical Exam Abdomen: Normal bowel sounds Heart: Other (Irreg) Extremities: Other (2+ edema slightly improved) General: Alert Lungs: Other (Coarse) Assessment Assessment Problems Medical Problems: (1) Acute on chronic congestive heart failure Status: Acute (2) COPD (chronic obstructive pulmonary disease) Status: Acute (3) Healthcare-associated pneumonia Status: Acute (4) Morbid obesity Status: Acute (5) Sepsis Status: Acute (6) Severe protein-calorie malnutrition Status: Acute (7) Urinary tract infection Status: Acute 1. Acute on chronic respiratory failure. 2. Anemia due to GI bleed 3. Healthcare acquired pneumonia. 4. Sepsis syndrome 5. Chronic obstructive pulmonary disease with exacerbation. 6. Atrial fibrillation with rapid ventricular response. 7. Obstructive sleep apnea. 8. Aortic stenosis. 9. Morbid obesity. 10.Hypertension. 11.Type 2 diabetes. 12.Hypothyroidism. 13.Generalized anxiety disorder. 14.Severe protein-calorie malnutrition. 15.Urinary tract infection. 16. History of diastolic congestive heart failure possibly due to cor pulmonale 17.Status post recent left total knee revision 18.coagulopathy on coumadin 19.Blood culture + coag neg staph 1/6bottles, possible contaminant- see above 20.Pulmonary HTN 21 Chronic diastolic CHF Plan Plan of Care Follow CBC Check INR Switch all meds to IV d/c Dobbhoff contine TPN increase insulin continue Card,ID and Pulm Care Comment Review of Relevant I have reviewed the following items donald (where applicable) has been applied. Labs Laboratory Tests Test 02/11/17 16:45 02/11/17 17:12 02/11/17 22:19 02/12/17 01:09 Prothrombin Time 18.0 SEC (11.7-14.0) Prothromb Time International Ratio 1.6 (0.8-1.1) Glucose (Fingerstick) 319 mg/dL (70-99) 262 mg/dL (70-99) 210 mg/dL (70-99) Test 02/12/17 06:48 02/12/17 06:50 02/12/17 07:10 02/12/17 08:53 Glucose (Fingerstick) 190 mg/dL (70-99) 211 mg/dL (70-99) White Blood Count 14.7 x10^3/uL (4.0-11.0) Red Blood Count 2.25 x10^6/uL (3.50-5.40) Hemoglobin 6.7 g/dL (12.0-15.5) Hematocrit 20.9 % (36.0-47.0) Mean Corpuscular Volume 93 fL (79-100) Mean Corpuscular Hemoglobin 30 pg (25-35) Mean Corpuscular Hemoglobin Concent 32 g/dL (31-37) Red Cell Distribution Width 16.6 % (11.5-14.5) Platelet Count 244 x10^3/uL (140-400) Sodium Level 150 mmol/L (136-145) Potassium Level 4.6 mmol/L (3.5-5.1) Chloride Level 112 mmol/L (98-107) Carbon Dioxide Level 38 mmol/L (21-32) Anion Gap 0 (6-14) Blood Urea Nitrogen 41 mg/dL (7-20) Creatinine 0.7 mg/dL (0.6-1.0) Estimated GFR (Cockcroft-Gault) 80.9 Glucose Level 205 mg/dL (70-99) Calcium Level 8.5 mg/dL (8.5-10.1) Phosphorus Level 2.6 mg/dL (2.6-4.7) Magnesium Level 2.5 mg/dL (1.8-2.4) Prothrombin Time 19.5 SEC (11.7-14.0) Prothromb Time International Ratio 1.8 (0.8-1.1) Test 02/12/17 10:10 02/12/17 12:40 02/12/17 18:14 02/12/17 23:51 Hemoglobin 6.6 g/dL (12.0-15.5) Hematocrit 20.8 % (36.0-47.0) Mean Corpuscular Hemoglobin Concent 32 g/dL (31-37) Glucose (Fingerstick) 243 mg/dL (70-99) 199 mg/dL (70-99) 185 mg/dL (70-99) Test 02/13/17 06:15 02/13/17 06:21 02/13/17 11:20 White Blood Count 10.8 x10^3/uL (4.0-11.0) Red Blood Count 2.81 x10^6/uL (3.50-5.40) Hemoglobin 8.4 g/dL (12.0-15.5) Hematocrit 25.8 % (36.0-47.0) Mean Corpuscular Volume 92 fL (79-100) Mean Corpuscular Hemoglobin 30 pg (25-35) Mean Corpuscular Hemoglobin Concent 33 g/dL (31-37) Red Cell Distribution Width 15.8 % (11.5-14.5) Platelet Count 202 x10^3/uL (140-400) Sodium Level 151 mmol/L (136-145) Potassium Level 4.8 mmol/L (3.5-5.1) Chloride Level 111 mmol/L (98-107) Carbon Dioxide Level 39 mmol/L (21-32) Anion Gap 1 (6-14) Blood Urea Nitrogen 29 mg/dL (7-20) Creatinine 0.7 mg/dL (0.6-1.0) Estimated GFR (Cockcroft-Gault) 80.9 BUN/Creatinine Ratio 41 (6-20) Glucose Level 261 mg/dL (70-99) Calcium Level 8.2 mg/dL (8.5-10.1) Phosphorus Level 3.7 mg/dL (2.6-4.7) Magnesium Level 2.5 mg/dL (1.8-2.4) Total Bilirubin 0.8 mg/dL (0.2-1.0) Aspartate Amino Transf (AST/SGOT) 22 U/L (15-37) Alanine Aminotransferase (ALT/SGPT) 24 U/L (14-59) Alkaline Phosphatase 53 U/L (46-116) Total Protein 4.9 g/dL (6.4-8.2) Albumin 2.4 g/dL (3.4-5.0) Albumin/Globulin Ratio 1.0 (1.0-1.7) Triglycerides Level 113 mg/dL (0-150) Glucose (Fingerstick) 242 mg/dL (70-99) 315 mg/dL (70-99) Laboratory Tests Test 02/12/17 18:14 02/12/17 23:51 02/13/17 06:15 02/13/17 06:21 Glucose (Fingerstick) 199 mg/dL (70-99) 185 mg/dL (70-99) 242 mg/dL (70-99) White Blood Count 10.8 x10^3/uL (4.0-11.0) Red Blood Count 2.81 x10^6/uL (3.50-5.40) Hemoglobin 8.4 g/dL (12.0-15.5) Hematocrit 25.8 % (36.0-47.0) Mean Corpuscular Volume 92 fL (79-100) Mean Corpuscular Hemoglobin 30 pg (25-35) Mean Corpuscular Hemoglobin Concent 33 g/dL (31-37) Red Cell Distribution Width 15.8 % (11.5-14.5) Platelet Count 202 x10^3/uL (140-400) Sodium Level 151 mmol/L (136-145) Potassium Level 4.8 mmol/L (3.5-5.1) Chloride Level 111 mmol/L (98-107) Carbon Dioxide Level 39 mmol/L (21-32) Anion Gap 1 (6-14) Blood Urea Nitrogen 29 mg/dL (7-20) Creatinine 0.7 mg/dL (0.6-1.0) Estimated GFR (Cockcroft-Gault) 80.9 BUN/Creatinine Ratio 41 (6-20) Glucose Level 261 mg/dL (70-99) Calcium Level 8.2 mg/dL (8.5-10.1) Phosphorus Level 3.7 mg/dL (2.6-4.7) Magnesium Level 2.5 mg/dL (1.8-2.4) Total Bilirubin 0.8 mg/dL (0.2-1.0) Aspartate Amino Transf (AST/SGOT) 22 U/L (15-37) Alanine Aminotransferase (ALT/SGPT) 24 U/L (14-59) Alkaline Phosphatase 53 U/L (46-116) Total Protein 4.9 g/dL (6.4-8.2) Albumin 2.4 g/dL (3.4-5.0) Albumin/Globulin Ratio 1.0 (1.0-1.7) Triglycerides Level 113 mg/dL (0-150) Test 02/13/17 11:20 Glucose (Fingerstick) 315 mg/dL (70-99) Microbiology 02/05/17 Blood Culture - Final, Complete NO GROWTH AFTER 5 DAYS 02/05/17 Urine Culture - Final, Complete 02/05/17 Urine Culture Result 1 (BISI) - Final, Complete Medications Current Medications Sodium Chloride 1,000 ml @ 620 mls/hr Q1H37M IV Last administered on 10:43; Start 02/05/17 at 09:05; Stop 02/05/17 at 12:05; Status DC Albuterol/ Ipratropium (Duoneb) 6 ml 1X ONCE NEB Last administered on 09:18; Start 02/05/17 at 09:15; Stop 02/05/17 at 09:16; Status DC Meropenem 1 gm/ Sodium Chloride 100 ml @ 200 mls/hr Q8HRS IV ; Start 02/05/17 at 14:00; Status UNV Vancomycin HCl (Vanco Per Pharmacy) 1 each PRN DAILY PRN MC SEE COMMENTS Last administered on 02/10/17 14:10; Start 02/05/17 at 11:30; Stop 02/11/17 at 08 :13; Status DC Levofloxacin/ Dextrose (Levaquin Per Pharmacy) 1 each PRN DAILY PRN MC SEE COMMENTS; Start 02/05/17 at 11:30; Stop 02/09/17 at 08:20; Status DC Vancomycin HCl 2 gm/Dextrose 500 ml @ 250 mls/hr 1X ONCE IV Last administered on 02/05/17 13:20; Start 02/05/17 at 12:00; Stop 02/05/17 at 13 :59; Status DC Meropenem (Merrem) 1 gm 1X ONCE IVP Last administered on 02/05/17 11:37; Start 02/05/17 at 12:00; Stop 02/05/17 at 19:17; Status DC Levofloxacin/ Dextrose 150 ml @ 100 mls/hr 1X ONCE IV Last administered on 11:38; Start 02/05/17 at 12:00; Stop 02/05/17 at 13:29; Status DC Methylprednisolone Sodium Succinate (SOLU-Medrol 125MG VIAL) 125 mg 1X ONCE IV Last administered on 02/05/17 12:06; Start 02/05/17 at 11:45; Stop at 11:59; Status DC Ondansetron HCl (Zofran) 4 mg PRN Q8HRS PRN IV NAUSEA/VOMITING; Start at 12:00; Stop 02/06/17 at 11:59; Status DC Sodium Chloride 1,000 ml @ 75 mls/hr [id number] IV Last administered on 16:24; Start 02/05/17 at 11:46; Stop 02/06/17 at 11:19; Status DC Acetaminophen (Tylenol) 650 mg PRN Q4HRS PRN PO FEVER Last administered on 03:34; Start 02/05/17 at 12:00; Stop 02/06/17 at 11:59; Status DC Albuterol/ Ipratropium (Duoneb) 3 ml RTQID NEB Last administered on 02/06/17 09:33; Start 02/05/17 at 12:00; Stop 02/06/17 at 11:59; Status DC Dobutamine HCl 2000 mg/Dextrose 250 ml @ 4.59 mls/hr CONT IV ; Start 02/05/17 at 12:00; Stop 02/05/17 at 13:17; Status DC Dobutamine HCl/ Dextrose 250 ml @ 18.375 mls/ hr CONT PRN IV SEE I/O RECORD; Start 02/05/17 at 13:15 Meropenem (Merrem) 1 gm Q8HRS IVP Last administered on 02/05/17 21:03; Start 02/05/17 at 21:00; Stop 02/05/17 at 21:53; Status DC Levofloxacin/ Dextrose 150 ml @ 100 mls/hr Q24H IV Last administered on 20:36; Start 02/06/17 at 12:00; Stop 02/09/17 at 08:24; Status DC Vancomycin HCl 1.75 gm/Dextrose/ Sodium Chloride 500 ml @ 250 mls/hr Q18H IV Last administered on 02/07/17 19:48; Start 02/06/17 at 07:00; Stop 02/08/17 at 13:27; Status DC Vancomycin HCl 1 each 1X ONCE MC Last administered on 02/07/17 00:30; Start 02/07/17 at 00:30; Stop 02/07/17 at 00:31; Status DC Methylprednisolone Sodium Succinate (SOLU-Medrol 40MG VIAL) 40 mg Q8HRS IV Last administered on 02/11/17 06:02; Start 02/05/17 at 16:00; Stop 02/11/17 at 13:17; Status DC Enoxaparin Sodium (Lovenox 40mg Syringe) 40 mg Q24H SQ Last administered on 16:24; Start 02/05/17 at 16:00; Stop 02/05/17 at 21:19; Status DC Aspirin (Children'S Aspirin) 81 mg DAILY PO Last administered on 02/08/17 08: 41; Start 02/06/17 at 09:00; Stop 02/12/17 at 09:29; Status DC Diltiazem HCl (Cardizem 24hr Cd) 120 mg QHS PO Last administered on 02/12/17 23:31; Start 02/05/17 at 21:00 Ferrous Sulfate (Feosol) 325 mg BID PO Last administered on 02/12/17 23:30; Start 02/05/17 at 21:00; Stop 02/13/17 at 08:13; Status DC Acetaminophen/ Hydrocodone Bitart (Lortab 7.5/325) 2 tab PRN Q6HRS PRN PO PAIN Last administered on 02/10/17 19:56; Start 02/05/17 at 17:15 Levothyroxine Sodium (Synthroid) 137 mcg DAILYAC PO Last administered on 08:51; Start 02/06/17 at 07:30 Warfarin Sodium (Coumadin) 5 mg DAILY16 PO Last administered on 02/07/17 17: 28; Start 02/05/17 at 22:00; Stop 02/08/17 at 09:53; Status DC Citalopram Hydrobromide (CeleXA) 40 mg DAILY PO Last administered on 08:51; Start 02/06/17 at 09:00 Glimepiride (Amaryl) 4 mg BIDWMEALS PO Last administered on 02/12/17 18:12; Start 02/05/17 at 17:30 Losartan Potassium (Cozaar) 25 mg DAILY PO ; Start 02/06/17 at 09:00; Stop at 11:22; Status DC Atorvastatin Calcium (Lipitor) 80 mg QHS PO Last administered on 02/12/17 23: 30; Start 02/05/17 at 21:00 Insulin Aspart (NovoLOG) 0-12 UNITS QIDACHS SQ Last administered on 02/13/17 11:24; Start 02/05/17 at 18:00 Norepinephrine Bitartrate 250 ml @ 0 mls/hr CONT PRN IV SEE I/O RECORD; Start 02/05/17 at 19:00 Albuterol/ Ipratropium (Duoneb) 3 ml STK-MED ONCE .ROUTE ; Start 02/05/17 at 19 :16; Stop 02/05/17 at 19:17; Status DC Meropenem (Merrem) 1 gm Q8HRS IVP Last administered on 02/08/17 05:33; Start 02/06/17 at 06:00; Stop 02/08/17 at 09:00; Status DC Warfarin Sodium (Coumadin Per Physician) 1 each PRN DAILY PRN MC SEE COMMENTS; Start 02/06/17 at 07:45; Status Cancel Lactobacillus Rhamnosus (Culturelle) 1 cap BID PO Last administered on 23:46; Start 02/06/17 at 09:00 Albuterol/ Ipratropium (Duoneb) 3 ml RTQID NEB Last administered on 02/13/17 07:54; Start 02/06/17 at 16:00; Stop 02/13/17 at 09:54; Status DC Alprazolam (Xanax) 0.5 mg PRN TID PRN PO ANXIETY / AGITATION Last administered on 02/12/17 23:30; Start 02/06/17 at 17:30 Metformin HCl (Glucophage) 500 mg BIDWMEALS PO Last administered on 02/12/17 18:12; Start 02/07/17 at 12:00; Stop 02/13/17 at 03:02; Status DC Polyethylene Glycol (miraLAX PACKET) 17 gm PRN DAILY PRN PO CONSTIPATION Last administered on 02/07/17 21:29; Start 02/07/17 at 20:00 Alteplase, Recombinant (Cathflo) 2 mg 1X ONCE INT CAT Last administered on 07:32; Start 02/08/17 at 08:00; Stop 02/08/17 at 08:01; Status DC Pantoprazole Sodium 80 mg/ Sodium Chloride 100 ml @ 10 mls/hr Q10H IV Last administered on 02/13/17 03:42; Start 02/08/17 at 13:30 Vancomycin HCl 1.75 gm/Dextrose/ Sodium Chloride 500 ml @ 250 mls/hr Q18H IV Last administered on 02/11/17 02:15; Start 02/08/17 at 21:00; Stop 02/11/17 at 08:15; Status DC Digoxin (Lanoxin) 500 mcg 1X ONCE IV Last administered on 02/08/17 18:30; Start 02/08/17 at 18:15; Stop 02/08/17 at 18:26; Status DC Digoxin (Lanoxin) 250 mcg 1X ONCE IV Last administered on 02/08/17 19:56; Start 02/08/17 at 19:45; Stop 02/08/17 at 19:46; Status DC Fentanyl Citrate (Fentanyl 2ml Vial) 50 mcg PRN Q3HRS PRN IV PAIN Last administered on 02/08/17 21:09; Start 02/08/17 at 20:30 Albumin Human 500 ml @ 125 mls/hr 1X ONCE IV Last administered on 02/08/17 23:38; Start 02/08/17 at 22:00; Stop 02/09/17 at 01:59; Status DC Phytonadione 10 mg/Sodium Chloride 51 ml @ 102 mls/hr 1X ONCE IV Last administered on 02/09/17 07:24; Start 02/09/17 at 08:00; Stop 02/09/17 at 08 :29; Status DC Throat Lozenges (Chloraseptic) 1 spray PRN Q2HR PRN PO SORE THROAT Last administered on 02/09/17 13:40; Start 02/09/17 at 08:45 Digoxin (Lanoxin) 125 mcg 1X ONCE IV Last administered on 02/10/17 13:02; Start 02/10/17 at 12:15; Stop 02/10/17 at 12:16; Status DC Insulin Aspart (NovoLOG) 6 units Q6HRS SQ Last administered on 02/11/17 06:20 ; Start 02/10/17 at 15:00; Stop 02/11/17 at 11:54; Status DC Sodium Chloride (Saline Mist Nasal) 1 nara PRN Q1HR PRN NS NASAL CONGESTION; Start 02/10/17 at 17:30 Vancomycin HCl 1 each 1X ONCE MC ; Start 02/11/17 at 20:30; Stop 02/11/17 at 20:31; Status Cancel Insulin Aspart (NovoLOG) 10 units Q6HRS SQ Last administered on 02/13/17 11: 26; Start 02/11/17 at 12:00 Methylprednisolone Sodium Succinate (SOLU-Medrol 40MG VIAL) 40 mg DAILY IV Last administered on 02/13/17 08:13; Start 02/12/17 at 09:00; Stop 02/13/17 at 09:54; Status DC Sodium Chloride 1,000 ml @ 85 mls/hr [id number] IV Last administered on 14:21; Start 02/11/17 at 14:00; Stop 02/12/17 at 01:45; Status DC Artificial Tears (Artificial Tears) 1 drop PRN Q15MIN PRN OU DRY EYE; Start at 19:15 Phytonadione (Vitamin K Ampule) 5 mg 1X ONCE SQ Last administered on 11:32; Start 02/12/17 at 09:45; Stop 02/12/17 at 09:46; Status DC Info 1 each PRN DAILY PRN MC SEE COMMENTS Last administered on 02/13/17 12:40 ; Start 02/12/17 at 09:45 Sodium Chloride 60 meq/Potassium Chloride 25 meq/ Potassium Phosphate 13.6 mmol/ Magnesium Sulfate 5 meq/ Calcium Gluconate 10 meq/ Multivitamins 10 ml/Chromium / Copper/Manganese/ Seleni/Zn 1 ml/ Potassium Acetate 25 meq/Total Parenteral Nutrition/Amino Acids/Dextrose/ Fat Emuls... 1,512 ml @ 63 mls/hr TPN CONT IV Last administered on 02/12/17 23:32; Start 02/12/17 at 22:00; Stop at 21:59 Digoxin (Lanoxin) 250 mcg DAILY IV Last administered on 02/13/17 08:14; Start 02/12/17 at 14:30 Hydrocortisone Sodium Succinate (Solu-CORTEF) 125 mg 1X ONCE IV Last administered on 02/12/17 23:20; Start 02/12/17 at 16:15; Stop 02/12/17 at 16 :16; Status DC Diphenhydramine HCl (Benadryl) 50 mg 1X ONCE IVP Last administered on 23:21; Start 02/12/17 at 16:15; Stop 02/12/17 at 16:16; Status DC Famotidine (Pepcid Vial) 40 mg 1X ONCE IVP Last administered on 02/12/17 23: 21; Start 02/12/17 at 16:15; Stop 02/12/17 at 16:16; Status DC Diphenhydramine HCl (Benadryl) 25 mg 1X ONCE IVP Last administered on 23:47; Start 02/12/17 at 18:15; Stop 02/12/17 at 18:16; Status DC Iohexol (Omnipaque 300 Mg/ml) 90 ml 1X ONCE IV Last administered on 03:13; Start 02/13/17 at 03:30; Stop 02/13/17 at 03:31; Status DC Metformin HCl (Glucophage) 500 mg BIDWMEALS PO ; Start 02/15/17 at 08:00 Ferrous Sulfate 300 mg BID PO ; Start 02/13/17 at 09:00 Albuterol/ Ipratropium (Duoneb) 3 ml Q4HRS NEB Last administered on 02/13/17 12:11; Start 02/13/17 at 12:00 Methylprednisolone Sodium Succinate (SOLU-Medrol 40MG VIAL) 60 mg Q8HRS IV Last administered on 02/13/17 13:41; Start 02/13/17 at 14:00 Potassium Chloride 25 meq/ Potassium Phosphate 13.6 mmol/Magnesium Sulfate 2.5 meq/ Calcium Gluconate 10 meq/ Multivitamins 10 ml/Chromium/ Copper/Manganese/ Seleni/Zn 1 ml/ Potassium Acetate 25 meq/Total Parenteral Nutrition/Amino Acids/ Dextrose/ Fat Emulsion Intravenous 1,512 ml @ 63 mls/hr TPN CONT IV ; Start 02/13/17 at 22:00; Stop 02/14/17 at 21:59 Furosemide (Lasix) 40 mg 1X ONCE IVP Last administered on 02/13/17t 13:41; Start 02/13/17 at 13:00; Stop 02/13/17 at 13:01; Status DC Lorazepam (Ativan) 0.5 mg PRN Q4HRS PRN IV ANXIETY / AGITATION; Start at 14:15; Status UNV Levothyroxine Sodium 75 mcg/ Sodium Chloride 5 ml @ 75 mls/hr DAILY IVP ; Start 02/14/17 at 09:00; Status UNV Active Scripts Active Reported Ferrous Sulfate 325 Mg Tablet 1 Tab PO BID LAST DOSE GIVEN: DATE:01/08/17 TIME:9:00 a.m. Warfarin Sodium 5 Mg Tablet 1 Tab PO DAILY 30 Days LAST DOSE GIVEN: DATE:01/08/17 TIME:2:00 p.m Levothyroxine Sodium 137 Mcg Tablet 137 Mcg PO DAILYAC LAST DOSE GIVEN: DATE:01/08/17 TIME:7:30 a.m. Furosemide 40 Mg Tablet 40 Mg PO DAILY LAST DOSE GIVEN: DATE:01/07/17 TIME:9:00 a.m. Aspirin 81 Mg Tab.chew 1 Tab PO DAILY LAST DOSE GIVEN: DATE:01/08/17 TIME:9:00 a.m. Hydrocodone-Apap 7.5-325 (Hydrocodone Bit/Acetaminophen) 1 Each Tablet 1-2 Tab PO PRN Q6HRS PRN Took at 12:30 today may take anytime as needed for pain every 4 hours Amaryl (Glimepiride) 4 Mg Tablet 1 Tab PO BID LAST DOSE GIVEN: DATE:01/08/17 TIME:9:00 a.m. Potassium Chloride 20 Meq Tab.er.prt 1 Tab PO WEEKLY Meds not given this hospital admission. May resume home medications as approved by Physician. TIME: 8:30 a.m. NEXT DOSE DUE: DATE: 12-28-15 TIME: 8:30 a.m. Metolazone 5 Mg Tablet 5 Mg PO WEEKLY Meds not given this hospital admission. May resume home medications as approved by Physician. TIME: 8:30 a.m. NEXT DOSE DUE: DATE: 12-28-15 TIME: 8:30 a.m. Lexapro (Escitalopram Oxalate) 10 Mg Tablet 20 Mg PO DAILY LAST DOSE GIVEN: DATE:01/08/17 TIME:9:00 a.m. NEXT DOSE DUE: DATE: 12-28-15 TIME: 8:30 a.m. Cardizem Cd (Diltiazem Hcl) 240 Mg Cap.er.24h 120 Mg PO HS LAST DOSE GIVEN: DATE:01/07/17 TIME:9:00 p.m. NEXT DOSE DUE: DATE: 12-27-15 TIME: 9:00 p.m. Losartan Potassium 100 Mg Tablet 25 Mg PO DAILY LAST DOSE GIVEN: DATE:01/07/17 TIME:9:00 a.m. Crestor (Rosuvastatin Calcium) 40 Mg Tablet 40 Mg PO QHS LAST DOSE GIVEN: DATE:01/07/17 TIME:9:00 p.m. NEXT DOSE DUE: DATE: 12-27-15 TIME: 9:00 p.m. Vitals/I & O Vital Sign - Last 24 Hours 02/12/17 02/12/17 02/12/17 02/12/17 14:21 14:35 14:50 15:00 Temp 97.4 98.0 97.4 98.0 Pulse 145 126 112 130 Resp 22 18 B/P (MAP) 113/60 95/56 99/62 116/60 (78) Pulse Ox 96 O2 Delivery Nasal Cannula O2 Flow Rate 2.0 02/12/17 02/12/17 02/12/17 02/12/17 16:00 16:00 16:00 17:00 Temp 98.0 98.0 Pulse 127 Resp 24 B/P (MAP) 109/67 (81) Pulse Ox 99 97 O2 Delivery Nasal Cannula Nasal Cannula Nasal Cannula O2 Flow Rate 2.0 2.0 2.0 3.0 02/12/17 02/12/17 02/12/17 02/12/17 17:00 17:15 17:30 18:00 Temp 98.0 98.0 98.0 98.0 Pulse 130 103 118 100 Resp 22 18 24 14 B/P (MAP) 127/75 (92) 132/85 132/59 140/77 (98) Pulse Ox 94 94 O2 Delivery Nasal Cannula Nasal Cannula O2 Flow Rate 2.0 2.0 02/12/17 02/12/17 02/12/17 02/12/17 19:00 19:51 20:00 20:00 Temp 98.9 98.9 Pulse 109 114 Resp 24 14 B/P (MAP) 135/54 (81) 126/70 (88) Pulse Ox 97 95 96 O2 Delivery Nasal Cannula Nasal Cannula Nasal Cannula Nasal Cannula O2 Flow Rate 2.0 3.0 2.0 2.0 02/12/17 02/12/17 02/12/17 02/12/17 20:00 20:54 21:00 22:00 Temp 98.9 98.9 Pulse 123 131 109 Resp 25 14 23 B/P (MAP) 145/67 142/70 (94) 133/64 (87) Pulse Ox 96 96 O2 Delivery Nasal Cannula Nasal Cannula O2 Flow Rate 2.0 2.0 2.0 02/12/17 02/12/17 02/12/17 02/12/17 23:00 23:31 23:37 23:59 Temp 98.5 98.5 Pulse 126 131 114 Resp 19 23 B/P (MAP) 110/49 (69) 142/70 124/67 Pulse Ox 96 O2 Delivery Nasal Cannula Nasal Cannula O2 Flow Rate 2.0 2.0 02/13/17 02/13/17 02/13/17 02/13/17 00:00 00:00 01:00 02:00 Temp 98.5 98.5 Pulse 100 100 122 Resp 19 19 34 B/P (MAP) 124/71 (88) 117/52 (73) 105/54 (71) Pulse Ox 96 96 96 O2 Delivery Nasal Cannula Nasal Cannula Nasal Cannula O2 Flow Rate 2.0 2.0 2.0 2.0 02/13/17 02/13/17 02/13/17 02/13/17 03:00 04:00 04:00 04:00 Temp 98.4 98.4 Pulse 138 94 Resp 19 19 B/P (MAP) 124/71 (88) 124/71 (88) Pulse Ox 96 96 O2 Delivery Nasal Cannula Nasal Cannula Nasal Cannula O2 Flow Rate 2.0 2.0 2.0 2.0 02/13/17 02/13/17 02/13/17 02/13/17 05:00 05:09 05:17 06:00 Pulse 96 93 Resp 19 19 B/P (MAP) 147/73 (97) 146/65 (92) Pulse Ox 97 93 93 O2 Delivery BiPAP/CPAP BiPAP/CPAP BiPAP/CPAP O2 Flow Rate 2.0 02/13/17 02/13/17 02/13/17 02/13/17 07:00 07:55 08:00 08:00 Temp 96.9 96.9 Pulse 92 104 Resp 17 24 B/P (MAP) 146/65 (92) 145/67 (93) Pulse Ox 90 92 90 O2 Delivery BiPAP/CPAP BiPAP/CPAP Nasal Cannula Bi-pap O2 Flow Rate 4.0 02/13/17 02/13/17 02/13/17 02/13/17 08:14 09:00 09:19 10:00 Pulse 121 138 96 Resp 30 18 B/P (MAP) 156/63 151/81 (104) 151/64 (93) Pulse Ox 90 94 93 O2 Delivery BiPAP/CPAP BiPAP/CPAP BiPAP/CPAP 02/13/17 02/13/17 02/13/17 02/13/17 11:00 12:00 12:00 12:14 Temp 97.1 97.1 Pulse 87 80 Resp 17 B/P (MAP) 153/80 (104) 148/71 (96) Pulse Ox 91 96 94 O2 Delivery BiPAP/CPAP BiPAP/CPAP Bi-pap BiPAP/CPAP 02/13/17 02/13/17 13:00 13:38 Pulse 76 Resp 19 B/P (MAP) 156/68 (97) Pulse Ox 96 94 O2 Delivery BiPAP/CPAP BiPAP/CPAP Intake and Output 02/12/17 02/12/17 02/13/17 15:00 23:00 07:00 Intake Total 1076 ml 368 ml Output Total 725 ml 1000 ml 590 ml Balance -725 ml 76 ml -222 ml JUAN COOK MD Feb 13, 2017 14:14
--- NOTE | 2017-02-13 14:33 | PDOC ---
PROGRESS NOTES Subjective Subjective H&E speck on BiPAP. At the present time the atrial fibrillation has a controlled ventricular response. The patient is unable to eat and had a Dobbhoff inserted but it was removed because it was plugged up. Objective Objective Vital Signs Date Time Temp Pulse Resp B/P (MAP) Pulse Ox O2 Delivery O2 Flow Rate FiO2 02/13/17 13:38 94 BiPAP/CPAP 02/13/17 13:00 76 19 156/68 (97) 02/13/17 12:00 97.1 97.1 02/13/17 08:00 4.0 Intake and Output 02/13/17 07:00 Intake Total 1444 ml Output Total 2315 ml Balance -871 ml IV Total 481 ml Blood Product 563 ml Blood Product IV Normal Saline Flush 400 ml Output Urine Total 2315 ml Physical Exam Physical Exam Moving air better at this time. No significant changes seen heart sounds. Less edema. Assessment Assessment Heart-everett the patient seems to be holding. Agree with present plan. For now continue to DC the warfarin. Problems Medical Problems: (1) Acute on chronic congestive heart failure Status: Acute (2) COPD (chronic obstructive pulmonary disease) Status: Acute (3) Healthcare-associated pneumonia Status: Acute (4) Morbid obesity Status: Acute (5) Sepsis Status: Acute (6) Severe protein-calorie malnutrition Status: Acute (7) Urinary tract infection Status: Acute Comment Review of Relevant I have reviewed the following items donald (where applicable) has been applied. Labs Laboratory Tests Test 02/11/17 16:45 02/11/17 17:12 02/11/17 22:19 02/12/17 01:09 Prothrombin Time 18.0 SEC (11.7-14.0) Prothromb Time International Ratio 1.6 (0.8-1.1) Glucose (Fingerstick) 319 mg/dL (70-99) 262 mg/dL (70-99) 210 mg/dL (70-99) Test 02/12/17 06:48 02/12/17 06:50 02/12/17 07:10 02/12/17 08:53 Glucose (Fingerstick) 190 mg/dL (70-99) 211 mg/dL (70-99) White Blood Count 14.7 x10^3/uL (4.0-11.0) Red Blood Count 2.25 x10^6/uL (3.50-5.40) Hemoglobin 6.7 g/dL (12.0-15.5) Hematocrit 20.9 % (36.0-47.0) Mean Corpuscular Volume 93 fL (79-100) Mean Corpuscular Hemoglobin 30 pg (25-35) Mean Corpuscular Hemoglobin Concent 32 g/dL (31-37) Red Cell Distribution Width 16.6 % (11.5-14.5) Platelet Count 244 x10^3/uL (140-400) Sodium Level 150 mmol/L (136-145) Potassium Level 4.6 mmol/L (3.5-5.1) Chloride Level 112 mmol/L (98-107) Carbon Dioxide Level 38 mmol/L (21-32) Anion Gap 0 (6-14) Blood Urea Nitrogen 41 mg/dL (7-20) Creatinine 0.7 mg/dL (0.6-1.0) Estimated GFR (Cockcroft-Gault) 80.9 Glucose Level 205 mg/dL (70-99) Calcium Level 8.5 mg/dL (8.5-10.1) Phosphorus Level 2.6 mg/dL (2.6-4.7) Magnesium Level 2.5 mg/dL (1.8-2.4) Prothrombin Time 19.5 SEC (11.7-14.0) Prothromb Time International Ratio 1.8 (0.8-1.1) Test 02/12/17 10:10 02/12/17 12:40 02/12/17 18:14 02/12/17 23:51 Hemoglobin 6.6 g/dL (12.0-15.5) Hematocrit 20.8 % (36.0-47.0) Mean Corpuscular Hemoglobin Concent 32 g/dL (31-37) Glucose (Fingerstick) 243 mg/dL (70-99) 199 mg/dL (70-99) 185 mg/dL (70-99) Test 02/13/17 06:15 02/13/17 06:21 02/13/17 11:20 White Blood Count 10.8 x10^3/uL (4.0-11.0) Red Blood Count 2.81 x10^6/uL (3.50-5.40) Hemoglobin 8.4 g/dL (12.0-15.5) Hematocrit 25.8 % (36.0-47.0) Mean Corpuscular Volume 92 fL (79-100) Mean Corpuscular Hemoglobin 30 pg (25-35) Mean Corpuscular Hemoglobin Concent 33 g/dL (31-37) Red Cell Distribution Width 15.8 % (11.5-14.5) Platelet Count 202 x10^3/uL (140-400) Sodium Level 151 mmol/L (136-145) Potassium Level 4.8 mmol/L (3.5-5.1) Chloride Level 111 mmol/L (98-107) Carbon Dioxide Level 39 mmol/L (21-32) Anion Gap 1 (6-14) Blood Urea Nitrogen 29 mg/dL (7-20) Creatinine 0.7 mg/dL (0.6-1.0) Estimated GFR (Cockcroft-Gault) 80.9 BUN/Creatinine Ratio 41 (6-20) Glucose Level 261 mg/dL (70-99) Calcium Level 8.2 mg/dL (8.5-10.1) Phosphorus Level 3.7 mg/dL (2.6-4.7) Magnesium Level 2.5 mg/dL (1.8-2.4) Total Bilirubin 0.8 mg/dL (0.2-1.0) Aspartate Amino Transf (AST/SGOT) 22 U/L (15-37) Alanine Aminotransferase (ALT/SGPT) 24 U/L (14-59) Alkaline Phosphatase 53 U/L (46-116) Total Protein 4.9 g/dL (6.4-8.2) Albumin 2.4 g/dL (3.4-5.0) Albumin/Globulin Ratio 1.0 (1.0-1.7) Triglycerides Level 113 mg/dL (0-150) Glucose (Fingerstick) 242 mg/dL (70-99) 315 mg/dL (70-99) Laboratory Tests Test 02/12/17 18:14 02/12/17 23:51 02/13/17 06:15 02/13/17 06:21 Glucose (Fingerstick) 199 mg/dL (70-99) 185 mg/dL (70-99) 242 mg/dL (70-99) White Blood Count 10.8 x10^3/uL (4.0-11.0) Red Blood Count 2.81 x10^6/uL (3.50-5.40) Hemoglobin 8.4 g/dL (12.0-15.5) Hematocrit 25.8 % (36.0-47.0) Mean Corpuscular Volume 92 fL (79-100) Mean Corpuscular Hemoglobin 30 pg (25-35) Mean Corpuscular Hemoglobin Concent 33 g/dL (31-37) Red Cell Distribution Width 15.8 % (11.5-14.5) Platelet Count 202 x10^3/uL (140-400) Sodium Level 151 mmol/L (136-145) Potassium Level 4.8 mmol/L (3.5-5.1) Chloride Level 111 mmol/L (98-107) Carbon Dioxide Level 39 mmol/L (21-32) Anion Gap 1 (6-14) Blood Urea Nitrogen 29 mg/dL (7-20) Creatinine 0.7 mg/dL (0.6-1.0) Estimated GFR (Cockcroft-Gault) 80.9 BUN/Creatinine Ratio 41 (6-20) Glucose Level 261 mg/dL (70-99) Calcium Level 8.2 mg/dL (8.5-10.1) Phosphorus Level 3.7 mg/dL (2.6-4.7) Magnesium Level 2.5 mg/dL (1.8-2.4) Total Bilirubin 0.8 mg/dL (0.2-1.0) Aspartate Amino Transf (AST/SGOT) 22 U/L (15-37) Alanine Aminotransferase (ALT/SGPT) 24 U/L (14-59) Alkaline Phosphatase 53 U/L (46-116) Total Protein 4.9 g/dL (6.4-8.2) Albumin 2.4 g/dL (3.4-5.0) Albumin/Globulin Ratio 1.0 (1.0-1.7) Triglycerides Level 113 mg/dL (0-150) Test 02/13/17 11:20 Glucose (Fingerstick) 315 mg/dL (70-99) Microbiology 02/05/17 Blood Culture - Final, Complete NO GROWTH AFTER 5 DAYS 02/05/17 Urine Culture - Final, Complete 02/05/17 Urine Culture Result 1 (BISI) - Final, Complete Medications Current Medications Sodium Chloride 1,000 ml @ 620 mls/hr Q1H37M IV Last administered on 10:43; Start 02/05/17 at 09:05; Stop 02/05/17 at 12:05; Status DC Albuterol/ Ipratropium (Duoneb) 6 ml 1X ONCE NEB Last administered on 09:18; Start 02/05/17 at 09:15; Stop 02/05/17 at 09:16; Status DC Meropenem 1 gm/ Sodium Chloride 100 ml @ 200 mls/hr Q8HRS IV ; Start 02/05/17 at 14:00; Status UNV Vancomycin HCl (Vanco Per Pharmacy) 1 each PRN DAILY PRN MC SEE COMMENTS Last administered on 02/10/17 14:10; Start 02/05/17 at 11:30; Stop 02/11/17 at 08 :13; Status DC Levofloxacin/ Dextrose (Levaquin Per Pharmacy) 1 each PRN DAILY PRN MC SEE COMMENTS; Start 02/05/17 at 11:30; Stop 02/09/17 at 08:20; Status DC Vancomycin HCl 2 gm/Dextrose 500 ml @ 250 mls/hr 1X ONCE IV Last administered on 02/05/17 13:20; Start 02/05/17 at 12:00; Stop 02/05/17 at 13 :59; Status DC Meropenem (Merrem) 1 gm 1X ONCE IVP Last administered on 02/05/17 11:37; Start 02/05/17 at 12:00; Stop 02/05/17 at 19:17; Status DC Levofloxacin/ Dextrose 150 ml @ 100 mls/hr 1X ONCE IV Last administered on 11:38; Start 02/05/17 at 12:00; Stop 02/05/17 at 13:29; Status DC Methylprednisolone Sodium Succinate (SOLU-Medrol 125MG VIAL) 125 mg 1X ONCE IV Last administered on 02/05/17 12:06; Start 02/05/17 at 11:45; Stop at 11:59; Status DC Ondansetron HCl (Zofran) 4 mg PRN Q8HRS PRN IV NAUSEA/VOMITING; Start at 12:00; Stop 02/06/17 at 11:59; Status DC Sodium Chloride 1,000 ml @ 75 mls/hr [id number] IV Last administered on 16:24; Start 02/05/17 at 11:46; Stop 02/06/17 at 11:19; Status DC Acetaminophen (Tylenol) 650 mg PRN Q4HRS PRN PO FEVER Last administered on 03:34; Start 02/05/17 at 12:00; Stop 02/06/17 at 11:59; Status DC Albuterol/ Ipratropium (Duoneb) 3 ml RTQID NEB Last administered on 02/06/17 09:33; Start 02/05/17 at 12:00; Stop 02/06/17 at 11:59; Status DC Dobutamine HCl 2000 mg/Dextrose 250 ml @ 4.59 mls/hr CONT IV ; Start 02/05/17 at 12:00; Stop 02/05/17 at 13:17; Status DC Dobutamine HCl/ Dextrose 250 ml @ 18.375 mls/ hr CONT PRN IV SEE I/O RECORD; Start 02/05/17 at 13:15 Meropenem (Merrem) 1 gm Q8HRS IVP Last administered on 02/05/17 21:03; Start 02/05/17 at 21:00; Stop 02/05/17 at 21:53; Status DC Levofloxacin/ Dextrose 150 ml @ 100 mls/hr Q24H IV Last administered on 20:36; Start 02/06/17 at 12:00; Stop 02/09/17 at 08:24; Status DC Vancomycin HCl 1.75 gm/Dextrose/ Sodium Chloride 500 ml @ 250 mls/hr Q18H IV Last administered on 02/07/17 19:48; Start 02/06/17 at 07:00; Stop 02/08/17 at 13:27; Status DC Vancomycin HCl 1 each 1X ONCE MC Last administered on 02/07/17 00:30; Start 02/07/17 at 00:30; Stop 02/07/17 at 00:31; Status DC Methylprednisolone Sodium Succinate (SOLU-Medrol 40MG VIAL) 40 mg Q8HRS IV Last administered on 02/11/17 06:02; Start 02/05/17 at 16:00; Stop 02/11/17 at 13:17; Status DC Enoxaparin Sodium (Lovenox 40mg Syringe) 40 mg Q24H SQ Last administered on 16:24; Start 02/05/17 at 16:00; Stop 02/05/17 at 21:19; Status DC Aspirin (Children'S Aspirin) 81 mg DAILY PO Last administered on 02/08/17 08: 41; Start 02/06/17 at 09:00; Stop 02/12/17 at 09:29; Status DC Diltiazem HCl (Cardizem 24hr Cd) 120 mg QHS PO Last administered on 02/12/17 23:31; Start 02/05/17 at 21:00 Ferrous Sulfate (Feosol) 325 mg BID PO Last administered on 02/12/17 23:30; Start 02/05/17 at 21:00; Stop 02/13/17 at 08:13; Status DC Acetaminophen/ Hydrocodone Bitart (Lortab 7.5/325) 2 tab PRN Q6HRS PRN PO PAIN Last administered on 02/10/17 19:56; Start 02/05/17 at 17:15 Levothyroxine Sodium (Synthroid) 137 mcg DAILYAC PO Last administered on 08:51; Start 02/06/17 at 07:30 Warfarin Sodium (Coumadin) 5 mg DAILY16 PO Last administered on 02/07/17 17: 28; Start 02/05/17 at 22:00; Stop 02/08/17 at 09:53; Status DC Citalopram Hydrobromide (CeleXA) 40 mg DAILY PO Last administered on 08:51; Start 02/06/17 at 09:00 Glimepiride (Amaryl) 4 mg BIDWMEALS PO Last administered on 02/12/17 18:12; Start 02/05/17 at 17:30 Losartan Potassium (Cozaar) 25 mg DAILY PO ; Start 02/06/17 at 09:00; Stop at 11:22; Status DC Atorvastatin Calcium (Lipitor) 80 mg QHS PO Last administered on 02/12/17 23: 30; Start 02/05/17 at 21:00 Insulin Aspart (NovoLOG) 0-12 UNITS QIDACHS SQ Last administered on 02/13/17 11:24; Start 02/05/17 at 18:00 Norepinephrine Bitartrate 250 ml @ 0 mls/hr CONT PRN IV SEE I/O RECORD; Start 02/05/17 at 19:00 Albuterol/ Ipratropium (Duoneb) 3 ml STK-MED ONCE .ROUTE ; Start 02/05/17 at 19 :16; Stop 02/05/17 at 19:17; Status DC Meropenem (Merrem) 1 gm Q8HRS IVP Last administered on 02/08/17 05:33; Start 02/06/17 at 06:00; Stop 02/08/17 at 09:00; Status DC Warfarin Sodium (Coumadin Per Physician) 1 each PRN DAILY PRN MC SEE COMMENTS; Start 02/06/17 at 07:45; Status Cancel Lactobacillus Rhamnosus (Culturelle) 1 cap BID PO Last administered on 23:46; Start 02/06/17 at 09:00 Albuterol/ Ipratropium (Duoneb) 3 ml RTQID NEB Last administered on 02/13/17 07:54; Start 02/06/17 at 16:00; Stop 02/13/17 at 09:54; Status DC Alprazolam (Xanax) 0.5 mg PRN TID PRN PO ANXIETY / AGITATION Last administered on 02/12/17 23:30; Start 02/06/17 at 17:30 Metformin HCl (Glucophage) 500 mg BIDWMEALS PO Last administered on 02/12/17 18:12; Start 02/07/17 at 12:00; Stop 02/13/17 at 03:02; Status DC Polyethylene Glycol (miraLAX PACKET) 17 gm PRN DAILY PRN PO CONSTIPATION Last administered on 02/07/17 21:29; Start 02/07/17 at 20:00 Alteplase, Recombinant (Cathflo) 2 mg 1X ONCE INT CAT Last administered on 07:32; Start 02/08/17 at 08:00; Stop 02/08/17 at 08:01; Status DC Pantoprazole Sodium 80 mg/ Sodium Chloride 100 ml @ 10 mls/hr Q10H IV Last administered on 02/13/17 03:42; Start 02/08/17 at 13:30 Vancomycin HCl 1.75 gm/Dextrose/ Sodium Chloride 500 ml @ 250 mls/hr Q18H IV Last administered on 02/11/17 02:15; Start 02/08/17 at 21:00; Stop 02/11/17 at 08:15; Status DC Digoxin (Lanoxin) 500 mcg 1X ONCE IV Last administered on 02/08/17 18:30; Start 02/08/17 at 18:15; Stop 02/08/17 at 18:26; Status DC Digoxin (Lanoxin) 250 mcg 1X ONCE IV Last administered on 02/08/17 19:56; Start 02/08/17 at 19:45; Stop 02/08/17 at 19:46; Status DC Fentanyl Citrate (Fentanyl 2ml Vial) 50 mcg PRN Q3HRS PRN IV PAIN Last administered on 02/08/17 21:09; Start 02/08/17 at 20:30 Albumin Human 500 ml @ 125 mls/hr 1X ONCE IV Last administered on 02/08/17 23:38; Start 02/08/17 at 22:00; Stop 02/09/17 at 01:59; Status DC Phytonadione 10 mg/Sodium Chloride 51 ml @ 102 mls/hr 1X ONCE IV Last administered on 02/09/17 07:24; Start 02/09/17 at 08:00; Stop 02/09/17 at 08 :29; Status DC Throat Lozenges (Chloraseptic) 1 spray PRN Q2HR PRN PO SORE THROAT Last administered on 02/09/17 13:40; Start 02/09/17 at 08:45 Digoxin (Lanoxin) 125 mcg 1X ONCE IV Last administered on 02/10/17 13:02; Start 02/10/17 at 12:15; Stop 02/10/17 at 12:16; Status DC Insulin Aspart (NovoLOG) 6 units Q6HRS SQ Last administered on 02/11/17 06:20 ; Start 02/10/17 at 15:00; Stop 02/11/17 at 11:54; Status DC Sodium Chloride (Saline Mist Nasal) 1 nara PRN Q1HR PRN NS NASAL CONGESTION; Start 02/10/17 at 17:30 Vancomycin HCl 1 each 1X ONCE MC ; Start 02/11/17 at 20:30; Stop 02/11/17 at 20:31; Status Cancel Insulin Aspart (NovoLOG) 10 units Q6HRS SQ Last administered on 02/13/17 11: 26; Start 02/11/17 at 12:00; Stop 02/13/17 at 14:10; Status DC Methylprednisolone Sodium Succinate (SOLU-Medrol 40MG VIAL) 40 mg DAILY IV Last administered on 02/13/17 08:13; Start 02/12/17 at 09:00; Stop 02/13/17 at 09:54; Status DC Sodium Chloride 1,000 ml @ 85 mls/hr [id number] IV Last administered on 14:21; Start 02/11/17 at 14:00; Stop 02/12/17 at 01:45; Status DC Artificial Tears (Artificial Tears) 1 drop PRN Q15MIN PRN OU DRY EYE; Start at 19:15 Phytonadione (Vitamin K Ampule) 5 mg 1X ONCE SQ Last administered on 11:32; Start 02/12/17 at 09:45; Stop 02/12/17 at 09:46; Status DC Info 1 each PRN DAILY PRN MC SEE COMMENTS Last administered on 02/13/17 12:40 ; Start 02/12/17 at 09:45 Sodium Chloride 60 meq/Potassium Chloride 25 meq/ Potassium Phosphate 13.6 mmol/ Magnesium Sulfate 5 meq/ Calcium Gluconate 10 meq/ Multivitamins 10 ml/Chromium / Copper/Manganese/ Seleni/Zn 1 ml/ Potassium Acetate 25 meq/Total Parenteral Nutrition/Amino Acids/Dextrose/ Fat Emuls... 1,512 ml @ 63 mls/hr TPN CONT IV Last administered on 02/12/17 23:32; Start 02/12/17 at 22:00; Stop at 21:59 Digoxin (Lanoxin) 250 mcg DAILY IV Last administered on 02/13/17 08:14; Start 02/12/17 at 14:30 Hydrocortisone Sodium Succinate (Solu-CORTEF) 125 mg 1X ONCE IV Last administered on 02/12/17 23:20; Start 02/12/17 at 16:15; Stop 02/12/17 at 16 :16; Status DC Diphenhydramine HCl (Benadryl) 50 mg 1X ONCE IVP Last administered on 23:21; Start 02/12/17 at 16:15; Stop 02/12/17 at 16:16; Status DC Famotidine (Pepcid Vial) 40 mg 1X ONCE IVP Last administered on 02/12/17 23: 21; Start 02/12/17 at 16:15; Stop 02/12/17 at 16:16; Status DC Diphenhydramine HCl (Benadryl) 25 mg 1X ONCE IVP Last administered on 23:47; Start 02/12/17 at 18:15; Stop 02/12/17 at 18:16; Status DC Iohexol (Omnipaque 300 Mg/ml) 90 ml 1X ONCE IV Last administered on 03:13; Start 02/13/17 at 03:30; Stop 02/13/17 at 03:31; Status DC Metformin HCl (Glucophage) 500 mg BIDWMEALS PO ; Start 02/15/17 at 08:00 Ferrous Sulfate 300 mg BID PO ; Start 02/13/17 at 09:00 Albuterol/ Ipratropium (Duoneb) 3 ml Q4HRS NEB Last administered on 02/13/17 12:11; Start 02/13/17 at 12:00 Methylprednisolone Sodium Succinate (SOLU-Medrol 40MG VIAL) 60 mg Q8HRS IV Last administered on 02/13/17 13:41; Start 02/13/17 at 14:00 Potassium Chloride 25 meq/ Potassium Phosphate 13.6 mmol/Magnesium Sulfate 2.5 meq/ Calcium Gluconate 10 meq/ Multivitamins 10 ml/Chromium/ Copper/Manganese/ Seleni/Zn 1 ml/ Potassium Acetate 25 meq/Total Parenteral Nutrition/Amino Acids/ Dextrose/ Fat Emulsion Intravenous 1,512 ml @ 63 mls/hr TPN CONT IV ; Start 02/13/17 at 22:00; Stop 02/14/17 at 21:59 Furosemide (Lasix) 40 mg 1X ONCE IVP Last administered on 02/13/17 13:41; Start 02/13/17 at 13:00; Stop 02/13/17 at 13:01; Status DC Lorazepam (Ativan) 0.5 mg PRN Q4HRS PRN IV ANXIETY / AGITATION; Start at 14:15 Levothyroxine Sodium 75 mcg/ Sodium Chloride 5 ml @ 75 mls/hr DAILY IVP ; Start 02/13/17 at 15:00 Insulin Aspart (NovoLOG) 15 units Q6HRS SQ ; Start 02/13/17 at 18:00 Active Scripts Active Reported Ferrous Sulfate 325 Mg Tablet 1 Tab PO BID LAST DOSE GIVEN: DATE:01/08/17 TIME:9:00 a.m. Warfarin Sodium 5 Mg Tablet 1 Tab PO DAILY 30 Days LAST DOSE GIVEN: DATE:01/08/17 TIME:2:00 p.m Levothyroxine Sodium 137 Mcg Tablet 137 Mcg PO DAILYAC LAST DOSE GIVEN: DATE:01/08/17 TIME:7:30 a.m. Furosemide 40 Mg Tablet 40 Mg PO DAILY LAST DOSE GIVEN: DATE:01/07/17 TIME:9:00 a.m. Aspirin 81 Mg Tab.chew 1 Tab PO DAILY LAST DOSE GIVEN: DATE:01/08/17 TIME:9:00 a.m. Hydrocodone-Apap 7.5-325 (Hydrocodone Bit/Acetaminophen) 1 Each Tablet 1-2 Tab PO PRN Q6HRS PRN Took at 12:30 today may take anytime as needed for pain every 4 hours Amaryl (Glimepiride) 4 Mg Tablet 1 Tab PO BID LAST DOSE GIVEN: DATE:01/08/17 TIME:9:00 a.m. Potassium Chloride 20 Meq Tab.er.prt 1 Tab PO WEEKLY Meds not given this hospital admission. May resume home medications as approved by Physician. TIME: 8:30 a.m. NEXT DOSE DUE: DATE: 12-28-15 TIME: 8:30 a.m. Metolazone 5 Mg Tablet 5 Mg PO WEEKLY Meds not given this hospital admission. May resume home medications as approved by Physician. TIME: 8:30 a.m. NEXT DOSE DUE: DATE: 12-28-15 TIME: 8:30 a.m. Lexapro (Escitalopram Oxalate) 10 Mg Tablet 20 Mg PO DAILY LAST DOSE GIVEN: DATE:01/08/17 TIME:9:00 a.m. NEXT DOSE DUE: DATE: 12-28-15 TIME: 8:30 a.m. Cardizem Cd (Diltiazem Hcl) 240 Mg Cap.er.24h 120 Mg PO HS LAST DOSE GIVEN: DATE:01/07/17 TIME:9:00 p.m. NEXT DOSE DUE: DATE: 12-27-15 TIME: 9:00 p.m. Losartan Potassium 100 Mg Tablet 25 Mg PO DAILY LAST DOSE GIVEN: DATE:01/07/17 TIME:9:00 a.m. Crestor (Rosuvastatin Calcium) 40 Mg Tablet 40 Mg PO QHS LAST DOSE GIVEN: DATE:01/07/17 TIME:9:00 p.m. NEXT DOSE DUE: DATE: 12-27-15 TIME: 9:00 p.m. Vitals/I & O Vital Sign - Last 24 Hours 02/12/17 02/12/17 02/12/17 02/12/17 14:35 14:50 15:00 16:00 Temp 98.0 98.0 Pulse 126 112 130 Resp 18 B/P (MAP) 95/56 99/62 116/60 (78) Pulse Ox 96 O2 Delivery Nasal Cannula O2 Flow Rate 2.0 2.0 02/12/17 02/12/17 02/12/17 02/12/17 16:00 16:00 17:00 17:00 Temp 98.0 98.0 Pulse 127 130 Resp 24 22 B/P (MAP) 109/67 (81) 127/75 (92) Pulse Ox 99 97 94 O2 Delivery Nasal Cannula Nasal Cannula Nasal Cannula Nasal Cannula O2 Flow Rate 2.0 2.0 3.0 2.0 02/12/17 02/12/17 02/12/17 02/12/17 17:15 17:30 18:00 19:00 Temp 98.0 98.0 98.0 98.0 Pulse 103 118 100 109 Resp 18 24 14 24 B/P (MAP) 132/85 132/59 140/77 (98) 135/54 (81) Pulse Ox 94 97 O2 Delivery Nasal Cannula Nasal Cannula O2 Flow Rate 2.0 2.0 02/12/17 02/12/17 02/12/17 02/12/17 19:51 20:00 20:00 20:00 Temp 98.9 98.9 Pulse 114 Resp 14 B/P (MAP) 126/70 (88) Pulse Ox 95 96 O2 Delivery Nasal Cannula Nasal Cannula Nasal Cannula O2 Flow Rate 3.0 2.0 2.0 2.0 02/12/17 02/12/17 02/12/17 02/12/17 20:54 21:00 22:00 23:00 Temp 98.9 98.9 Pulse 123 131 109 126 Resp 25 14 23 19 B/P (MAP) 145/67 142/70 (94) 133/64 (87) 110/49 (69) Pulse Ox 96 96 96 O2 Delivery Nasal Cannula Nasal Cannula Nasal Cannula O2 Flow Rate 2.0 2.0 2.0 02/12/17 02/12/17 02/12/17 02/13/17 23:31 23:37 23:59 00:00 Temp 98.5 98.5 98.5 98.5 Pulse 131 114 100 Resp 23 19 B/P (MAP) 142/70 124/67 124/71 (88) Pulse Ox 96 O2 Delivery Nasal Cannula Nasal Cannula O2 Flow Rate 2.0 2.0 02/13/17 02/13/17 02/13/17 02/13/17 00:00 01:00 02:00 03:00 Pulse 100 122 138 Resp 19 34 19 B/P (MAP) 117/52 (73) 105/54 (71) 124/71 (88) Pulse Ox 96 96 96 O2 Delivery Nasal Cannula Nasal Cannula Nasal Cannula O2 Flow Rate 2.0 2.0 2.0 2.0 02/13/17 02/13/17 02/13/17 02/13/17 04:00 04:00 04:00 05:00 Temp 98.4 98.4 Pulse 94 96 Resp 19 19 B/P (MAP) 124/71 (88) 147/73 (97) Pulse Ox 96 97 O2 Delivery Nasal Cannula Nasal Cannula BiPAP/CPAP O2 Flow Rate 2.0 2.0 2.0 02/13/17 02/13/17 02/13/17 02/13/17 05:09 05:17 06:00 07:00 Pulse 93 92 Resp 19 17 B/P (MAP) 146/65 (92) 146/65 (92) Pulse Ox 93 93 90 O2 Delivery BiPAP/CPAP BiPAP/CPAP BiPAP/CPAP O2 Flow Rate 2.0 02/13/17 02/13/17 02/13/17 02/13/17 07:55 08:00 08:00 08:14 Temp 96.9 96.9 Pulse 104 121 Resp 24 B/P (MAP) 145/67 (93) 156/63 Pulse Ox 92 90 O2 Delivery BiPAP/CPAP Nasal Cannula Bi-pap O2 Flow Rate 4.0 02/13/17 02/13/17 02/13/17 02/13/17 09:00 09:19 10:00 11:00 Pulse 138 96 87 Resp 30 18 23 B/P (MAP) 151/81 (104) 151/64 (93) 153/80 (104) Pulse Ox 90 94 93 91 O2 Delivery BiPAP/CPAP BiPAP/CPAP BiPAP/CPAP BiPAP/CPAP 02/13/17 02/13/17 02/13/17 02/13/17 12:00 12:00 12:14 13:00 Temp 97.1 97.1 Pulse 80 76 Resp 17 19 B/P (MAP) 148/71 (96) 156/68 (97) Pulse Ox 96 94 96 O2 Delivery BiPAP/CPAP Bi-pap BiPAP/CPAP BiPAP/CPAP 02/13/17 13:38 Pulse Ox 94 O2 Delivery BiPAP/CPAP Intake and Output 02/12/17 02/12/17 02/13/17 15:00 23:00 07:00 Intake Total 1076 ml 368 ml Output Total 725 ml 1000 ml 590 ml Balance -725 ml 76 ml -222 ml CRYSTAL ARCHULETA MD Feb 13, 2017 14:33
[2017-02-13] MEDS: LEVOTHYROXINE SODIUM IVP SCH (15:11)
[2017-02-13] MEDS: NORMAL SALINE IVP SCH (15:11)
--- NOTE | 2017-02-13 15:24 | RAD ---
AP PORTABLE CHEST Clinical Indication: increased SOA. Comparison: AP chest, 2 days ago. Findings: Stable cardiomegaly. Atherosclerotic aortic arch. Median sternotomy wires. Right PICC is stable. There is bibasilar atelectasis. Small bilateral pleural effusions. No pulmonary vascular congestion is appreciated. No pneumothorax. 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 IMPRESSION: 1. Bibasilar atelectasis. Small bilateral pleural effusions. 2. Stable cardiomegaly.
--- NOTE | 2017-02-13 15:29 | PDOC ---
G I PROGRESS NOTE Reason for Follow-up Chronic blood loss anemia/Melena Subjective Dyspnea off Bipap Physical Exam Lungs decreased CV S1 S2 ABD +BS, soft, distended Review of Relevant I have reviewed the following items donald (where applicable) has been applied. Labs Laboratory Tests Test 02/11/17 16:45 02/11/17 17:12 02/11/17 22:19 02/12/17 01:09 Prothrombin Time 18.0 SEC (11.7-14.0) Prothromb Time International Ratio 1.6 (0.8-1.1) Glucose (Fingerstick) 319 mg/dL (70-99) 262 mg/dL (70-99) 210 mg/dL (70-99) Test 02/12/17 06:48 02/12/17 06:50 02/12/17 07:10 02/12/17 08:53 Glucose (Fingerstick) 190 mg/dL (70-99) 211 mg/dL (70-99) White Blood Count 14.7 x10^3/uL (4.0-11.0) Red Blood Count 2.25 x10^6/uL (3.50-5.40) Hemoglobin 6.7 g/dL (12.0-15.5) Hematocrit 20.9 % (36.0-47.0) Mean Corpuscular Volume 93 fL (79-100) Mean Corpuscular Hemoglobin 30 pg (25-35) Mean Corpuscular Hemoglobin Concent 32 g/dL (31-37) Red Cell Distribution Width 16.6 % (11.5-14.5) Platelet Count 244 x10^3/uL (140-400) Sodium Level 150 mmol/L (136-145) Potassium Level 4.6 mmol/L (3.5-5.1) Chloride Level 112 mmol/L (98-107) Carbon Dioxide Level 38 mmol/L (21-32) Anion Gap 0 (6-14) Blood Urea Nitrogen 41 mg/dL (7-20) Creatinine 0.7 mg/dL (0.6-1.0) Estimated GFR (Cockcroft-Gault) 80.9 Glucose Level 205 mg/dL (70-99) Calcium Level 8.5 mg/dL (8.5-10.1) Phosphorus Level 2.6 mg/dL (2.6-4.7) Magnesium Level 2.5 mg/dL (1.8-2.4) Prothrombin Time 19.5 SEC (11.7-14.0) Prothromb Time International Ratio 1.8 (0.8-1.1) Test 02/12/17 10:10 02/12/17 12:40 02/12/17 18:14 02/12/17 23:51 Hemoglobin 6.6 g/dL (12.0-15.5) Hematocrit 20.8 % (36.0-47.0) Mean Corpuscular Hemoglobin Concent 32 g/dL (31-37) Glucose (Fingerstick) 243 mg/dL (70-99) 199 mg/dL (70-99) 185 mg/dL (70-99) Test 02/13/17 06:15 02/13/17 06:21 02/13/17 11:20 White Blood Count 10.8 x10^3/uL (4.0-11.0) Red Blood Count 2.81 x10^6/uL (3.50-5.40) Hemoglobin 8.4 g/dL (12.0-15.5) Hematocrit 25.8 % (36.0-47.0) Mean Corpuscular Volume 92 fL (79-100) Mean Corpuscular Hemoglobin 30 pg (25-35) Mean Corpuscular Hemoglobin Concent 33 g/dL (31-37) Red Cell Distribution Width 15.8 % (11.5-14.5) Platelet Count 202 x10^3/uL (140-400) Sodium Level 151 mmol/L (136-145) Potassium Level 4.8 mmol/L (3.5-5.1) Chloride Level 111 mmol/L (98-107) Carbon Dioxide Level 39 mmol/L (21-32) Anion Gap 1 (6-14) Blood Urea Nitrogen 29 mg/dL (7-20) Creatinine 0.7 mg/dL (0.6-1.0) Estimated GFR (Cockcroft-Gault) 80.9 BUN/Creatinine Ratio 41 (6-20) Glucose Level 261 mg/dL (70-99) Calcium Level 8.2 mg/dL (8.5-10.1) Phosphorus Level 3.7 mg/dL (2.6-4.7) Magnesium Level 2.5 mg/dL (1.8-2.4) Total Bilirubin 0.8 mg/dL (0.2-1.0) Aspartate Amino Transf (AST/SGOT) 22 U/L (15-37) Alanine Aminotransferase (ALT/SGPT) 24 U/L (14-59) Alkaline Phosphatase 53 U/L (46-116) Total Protein 4.9 g/dL (6.4-8.2) Albumin 2.4 g/dL (3.4-5.0) Albumin/Globulin Ratio 1.0 (1.0-1.7) Triglycerides Level 113 mg/dL (0-150) Glucose (Fingerstick) 242 mg/dL (70-99) 315 mg/dL (70-99) Laboratory Tests Test 02/12/17 18:14 02/12/17 23:51 02/13/17 06:15 02/13/17 06:21 Glucose (Fingerstick) 199 mg/dL (70-99) 185 mg/dL (70-99) 242 mg/dL (70-99) White Blood Count 10.8 x10^3/uL (4.0-11.0) Red Blood Count 2.81 x10^6/uL (3.50-5.40) Hemoglobin 8.4 g/dL (12.0-15.5) Hematocrit 25.8 % (36.0-47.0) Mean Corpuscular Volume 92 fL (79-100) Mean Corpuscular Hemoglobin 30 pg (25-35) Mean Corpuscular Hemoglobin Concent 33 g/dL (31-37) Red Cell Distribution Width 15.8 % (11.5-14.5) Platelet Count 202 x10^3/uL (140-400) Sodium Level 151 mmol/L (136-145) Potassium Level 4.8 mmol/L (3.5-5.1) Chloride Level 111 mmol/L (98-107) Carbon Dioxide Level 39 mmol/L (21-32) Anion Gap 1 (6-14) Blood Urea Nitrogen 29 mg/dL (7-20) Creatinine 0.7 mg/dL (0.6-1.0) Estimated GFR (Cockcroft-Gault) 80.9 BUN/Creatinine Ratio 41 (6-20) Glucose Level 261 mg/dL (70-99) Calcium Level 8.2 mg/dL (8.5-10.1) Phosphorus Level 3.7 mg/dL (2.6-4.7) Magnesium Level 2.5 mg/dL (1.8-2.4) Total Bilirubin 0.8 mg/dL (0.2-1.0) Aspartate Amino Transf (AST/SGOT) 22 U/L (15-37) Alanine Aminotransferase (ALT/SGPT) 24 U/L (14-59) Alkaline Phosphatase 53 U/L (46-116) Total Protein 4.9 g/dL (6.4-8.2) Albumin 2.4 g/dL (3.4-5.0) Albumin/Globulin Ratio 1.0 (1.0-1.7) Triglycerides Level 113 mg/dL (0-150) Test 02/13/17 11:20 Glucose (Fingerstick) 315 mg/dL (70-99) Microbiology 02/05/17 Blood Culture - Final, Complete NO GROWTH AFTER 5 DAYS 02/05/17 Urine Culture - Final, Complete 02/05/17 Urine Culture Result 1 (BISI) - Final, Complete Medications Current Medications Sodium Chloride 1,000 ml @ 620 mls/hr Q1H37M IV Last administered on 10:43; Start 02/05/17 at 09:05; Stop 02/05/17 at 12:05; Status DC Albuterol/ Ipratropium (Duoneb) 6 ml 1X ONCE NEB Last administered on 09:18; Start 02/05/17 at 09:15; Stop 02/05/17 at 09:16; Status DC Meropenem 1 gm/ Sodium Chloride 100 ml @ 200 mls/hr Q8HRS IV ; Start 02/05/17 at 14:00; Status UNV Vancomycin HCl (Vanco Per Pharmacy) 1 each PRN DAILY PRN MC SEE COMMENTS Last administered on 02/10/17 14:10; Start 02/05/17 at 11:30; Stop 02/11/17 at 08 :13; Status DC Levofloxacin/ Dextrose (Levaquin Per Pharmacy) 1 each PRN DAILY PRN MC SEE COMMENTS; Start 02/05/17 at 11:30; Stop 02/09/17 at 08:20; Status DC Vancomycin HCl 2 gm/Dextrose 500 ml @ 250 mls/hr 1X ONCE IV Last administered on 02/05/17 13:20; Start 02/05/17 at 12:00; Stop 02/05/17 at 13 :59; Status DC Meropenem (Merrem) 1 gm 1X ONCE IVP Last administered on 02/05/17 11:37; Start 02/05/17 at 12:00; Stop 02/05/17 at 19:17; Status DC Levofloxacin/ Dextrose 150 ml @ 100 mls/hr 1X ONCE IV Last administered on 11:38; Start 02/05/17 at 12:00; Stop 02/05/17 at 13:29; Status DC Methylprednisolone Sodium Succinate (SOLU-Medrol 125MG VIAL) 125 mg 1X ONCE IV Last administered on 02/05/17 12:06; Start 02/05/17 at 11:45; Stop at 11:59; Status DC Ondansetron HCl (Zofran) 4 mg PRN Q8HRS PRN IV NAUSEA/VOMITING; Start at 12:00; Stop 02/06/17 at 11:59; Status DC Sodium Chloride 1,000 ml @ 75 mls/hr [id number] IV Last administered on 16:24; Start 02/05/17 at 11:46; Stop 02/06/17 at 11:19; Status DC Acetaminophen (Tylenol) 650 mg PRN Q4HRS PRN PO FEVER Last administered on 03:34; Start 02/05/17 at 12:00; Stop 02/06/17 at 11:59; Status DC Albuterol/ Ipratropium (Duoneb) 3 ml RTQID NEB Last administered on 02/06/17 09:33; Start 02/05/17 at 12:00; Stop 02/06/17 at 11:59; Status DC Dobutamine HCl 2000 mg/Dextrose 250 ml @ 4.59 mls/hr CONT IV ; Start 02/05/17 at 12:00; Stop 02/05/17 at 13:17; Status DC Dobutamine HCl/ Dextrose 250 ml @ 18.375 mls/ hr CONT PRN IV SEE I/O RECORD; Start 02/05/17 at 13:15 Meropenem (Merrem) 1 gm Q8HRS IVP Last administered on 02/05/17 21:03; Start 02/05/17 at 21:00; Stop 02/05/17 at 21:53; Status DC Levofloxacin/ Dextrose 150 ml @ 100 mls/hr Q24H IV Last administered on 20:36; Start 02/06/17 at 12:00; Stop 02/09/17 at 08:24; Status DC Vancomycin HCl 1.75 gm/Dextrose/ Sodium Chloride 500 ml @ 250 mls/hr Q18H IV Last administered on 02/07/17 19:48; Start 02/06/17 at 07:00; Stop 02/08/17 at 13:27; Status DC Vancomycin HCl 1 each 1X ONCE MC Last administered on 02/07/17 00:30; Start 02/07/17 at 00:30; Stop 02/07/17 at 00:31; Status DC Methylprednisolone Sodium Succinate (SOLU-Medrol 40MG VIAL) 40 mg Q8HRS IV Last administered on 02/11/17 06:02; Start 02/05/17 at 16:00; Stop 02/11/17 at 13:17; Status DC Enoxaparin Sodium (Lovenox 40mg Syringe) 40 mg Q24H SQ Last administered on 16:24; Start 02/05/17 at 16:00; Stop 02/05/17 at 21:19; Status DC Aspirin (Children'S Aspirin) 81 mg DAILY PO Last administered on 02/08/17 08: 41; Start 02/06/17 at 09:00; Stop 02/12/17 at 09:29; Status DC Diltiazem HCl (Cardizem 24hr Cd) 120 mg QHS PO Last administered on 02/12/17 23:31; Start 02/05/17 at 21:00 Ferrous Sulfate (Feosol) 325 mg BID PO Last administered on 02/12/17 23:30; Start 02/05/17 at 21:00; Stop 02/13/17 at 08:13; Status DC Acetaminophen/ Hydrocodone Bitart (Lortab 7.5/325) 2 tab PRN Q6HRS PRN PO PAIN Last administered on 02/10/17 19:56; Start 02/05/17 at 17:15 Levothyroxine Sodium (Synthroid) 137 mcg DAILYAC PO Last administered on 08:51; Start 02/06/17 at 07:30 Warfarin Sodium (Coumadin) 5 mg DAILY16 PO Last administered on 02/07/17 17: 28; Start 02/05/17 at 22:00; Stop 02/08/17 at 09:53; Status DC Citalopram Hydrobromide (CeleXA) 40 mg DAILY PO Last administered on 08:51; Start 02/06/17 at 09:00 Glimepiride (Amaryl) 4 mg BIDWMEALS PO Last administered on 02/12/17 18:12; Start 02/05/17 at 17:30 Losartan Potassium (Cozaar) 25 mg DAILY PO ; Start 02/06/17 at 09:00; Stop at 11:22; Status DC Atorvastatin Calcium (Lipitor) 80 mg QHS PO Last administered on 02/12/17 23: 30; Start 02/05/17 at 21:00 Insulin Aspart (NovoLOG) 0-12 UNITS QIDACHS SQ Last administered on 02/13/17 11:24; Start 02/05/17 at 18:00 Norepinephrine Bitartrate 250 ml @ 0 mls/hr CONT PRN IV SEE I/O RECORD; Start 02/05/17 at 19:00 Albuterol/ Ipratropium (Duoneb) 3 ml STK-MED ONCE .ROUTE ; Start 02/05/17 at 19 :16; Stop 02/05/17 at 19:17; Status DC Meropenem (Merrem) 1 gm Q8HRS IVP Last administered on 02/08/17 05:33; Start 02/06/17 at 06:00; Stop 02/08/17 at 09:00; Status DC Warfarin Sodium (Coumadin Per Physician) 1 each PRN DAILY PRN MC SEE COMMENTS; Start 02/06/17 at 07:45; Status Cancel Lactobacillus Rhamnosus (Culturelle) 1 cap BID PO Last administered on 23:46; Start 02/06/17 at 09:00 Albuterol/ Ipratropium (Duoneb) 3 ml RTQID NEB Last administered on 02/13/17 07:54; Start 02/06/17 at 16:00; Stop 02/13/17 at 09:54; Status DC Alprazolam (Xanax) 0.5 mg PRN TID PRN PO ANXIETY / AGITATION Last administered on 02/12/17 23:30; Start 02/06/17 at 17:30 Metformin HCl (Glucophage) 500 mg BIDWMEALS PO Last administered on 02/12/17 18:12; Start 02/07/17 at 12:00; Stop 02/13/17 at 03:02; Status DC Polyethylene Glycol (miraLAX PACKET) 17 gm PRN DAILY PRN PO CONSTIPATION Last administered on 02/07/17 21:29; Start 02/07/17 at 20:00 Alteplase, Recombinant (Cathflo) 2 mg 1X ONCE INT CAT Last administered on 07:32; Start 02/08/17 at 08:00; Stop 02/08/17 at 08:01; Status DC Pantoprazole Sodium 80 mg/ Sodium Chloride 100 ml @ 10 mls/hr Q10H IV Last administered on 02/13/17 03:42; Start 02/08/17 at 13:30; Stop 02/13/17 at 15 :21; Status DC Vancomycin HCl 1.75 gm/Dextrose/ Sodium Chloride 500 ml @ 250 mls/hr Q18H IV Last administered on 02/11/17 02:15; Start 02/08/17 at 21:00; Stop 02/11/17 at 08:15; Status DC Digoxin (Lanoxin) 500 mcg 1X ONCE IV Last administered on 02/08/17 18:30; Start 02/08/17 at 18:15; Stop 02/08/17 at 18:26; Status DC Digoxin (Lanoxin) 250 mcg 1X ONCE IV Last administered on 02/08/17 19:56; Start 02/08/17 at 19:45; Stop 02/08/17 at 19:46; Status DC Fentanyl Citrate (Fentanyl 2ml Vial) 50 mcg PRN Q3HRS PRN IV PAIN Last administered on 02/08/17 21:09; Start 02/08/17 at 20:30 Albumin Human 500 ml @ 125 mls/hr 1X ONCE IV Last administered on 02/08/17 23:38; Start 02/08/17 at 22:00; Stop 02/09/17 at 01:59; Status DC Phytonadione 10 mg/Sodium Chloride 51 ml @ 102 mls/hr 1X ONCE IV Last administered on 02/09/17 07:24; Start 02/09/17 at 08:00; Stop 02/09/17 at 08 :29; Status DC Throat Lozenges (Chloraseptic) 1 spray PRN Q2HR PRN PO SORE THROAT Last administered on 02/09/17 13:40; Start 02/09/17 at 08:45 Digoxin (Lanoxin) 125 mcg 1X ONCE IV Last administered on 02/10/17 13:02; Start 02/10/17 at 12:15; Stop 02/10/17 at 12:16; Status DC Insulin Aspart (NovoLOG) 6 units Q6HRS SQ Last administered on 02/11/17 06:20 ; Start 02/10/17 at 15:00; Stop 02/11/17 at 11:54; Status DC Sodium Chloride (Saline Mist Nasal) 1 nara PRN Q1HR PRN NS NASAL CONGESTION; Start 02/10/17 at 17:30 Vancomycin HCl 1 each 1X ONCE MC ; Start 02/11/17 at 20:30; Stop 02/11/17 at 20:31; Status Cancel Insulin Aspart (NovoLOG) 10 units Q6HRS SQ Last administered on 02/13/17 11: 26; Start 02/11/17 at 12:00; Stop 02/13/17 at 14:10; Status DC Methylprednisolone Sodium Succinate (SOLU-Medrol 40MG VIAL) 40 mg DAILY IV Last administered on 02/13/17 08:13; Start 02/12/17 at 09:00; Stop 02/13/17 at 09:54; Status DC Sodium Chloride 1,000 ml @ 85 mls/hr [id number] IV Last administered on 14:21; Start 02/11/17 at 14:00; Stop 02/12/17 at 01:45; Status DC Artificial Tears (Artificial Tears) 1 drop PRN Q15MIN PRN OU DRY EYE; Start at 19:15 Phytonadione (Vitamin K Ampule) 5 mg 1X ONCE SQ Last administered on 11:32; Start 02/12/17 at 09:45; Stop 02/12/17 at 09:46; Status DC Info 1 each PRN DAILY PRN MC SEE COMMENTS Last administered on 02/13/17 12:40 ; Start 02/12/17 at 09:45 Sodium Chloride 60 meq/Potassium Chloride 25 meq/ Potassium Phosphate 13.6 mmol/ Magnesium Sulfate 5 meq/ Calcium Gluconate 10 meq/ Multivitamins 10 ml/Chromium / Copper/Manganese/ Seleni/Zn 1 ml/ Potassium Acetate 25 meq/Total Parenteral Nutrition/Amino Acids/Dextrose/ Fat Emuls... 1,512 ml @ 63 mls/hr TPN CONT IV Last administered on 02/12/17 23:32; Start 02/12/17 at 22:00; Stop at 21:59 Digoxin (Lanoxin) 250 mcg DAILY IV Last administered on 02/13/17 08:14; Start 02/12/17 at 14:30 Hydrocortisone Sodium Succinate (Solu-CORTEF) 125 mg 1X ONCE IV Last administered on 02/12/17 23:20; Start 02/12/17 at 16:15; Stop 02/12/17 at 16 :16; Status DC Diphenhydramine HCl (Benadryl) 50 mg 1X ONCE IVP Last administered on 23:21; Start 02/12/17 at 16:15; Stop 02/12/17 at 16:16; Status DC Famotidine (Pepcid Vial) 40 mg 1X ONCE IVP Last administered on 02/12/17 23: 21; Start 02/12/17 at 16:15; Stop 02/12/17 at 16:16; Status DC Diphenhydramine HCl (Benadryl) 25 mg 1X ONCE IVP Last administered on 23:47; Start 02/12/17 at 18:15; Stop 02/12/17 at 18:16; Status DC Iohexol (Omnipaque 300 Mg/ml) 90 ml 1X ONCE IV Last administered on 03:13; Start 02/13/17 at 03:30; Stop 02/13/17 at 03:31; Status DC Metformin HCl (Glucophage) 500 mg BIDWMEALS PO ; Start 02/15/17 at 08:00 Ferrous Sulfate 300 mg BID PO ; Start 02/13/17 at 09:00 Albuterol/ Ipratropium (Duoneb) 3 ml Q4HRS NEB Last administered on 02/13/17 12:11; Start 02/13/17 at 12:00 Methylprednisolone Sodium Succinate (SOLU-Medrol 40MG VIAL) 60 mg Q8HRS IV Last administered on 02/13/17 13:41; Start 02/13/17 at 14:00 Potassium Chloride 25 meq/ Potassium Phosphate 13.6 mmol/Magnesium Sulfate 2.5 meq/ Calcium Gluconate 10 meq/ Multivitamins 10 ml/Chromium/ Copper/Manganese/ Seleni/Zn 1 ml/ Potassium Acetate 25 meq/Total Parenteral Nutrition/Amino Acids/ Dextrose/ Fat Emulsion Intravenous 1,512 ml @ 63 mls/hr TPN CONT IV ; Start 02/13/17 at 22:00; Stop 02/14/17 at 21:59 Furosemide (Lasix) 40 mg 1X ONCE IVP Last administered on 02/13/17 13:41; Start 02/13/17 at 13:00; Stop 02/13/17 at 13:01; Status DC Lorazepam (Ativan) 0.5 mg PRN Q4HRS PRN IV ANXIETY / AGITATION; Start at 14:15 Levothyroxine Sodium 75 mcg/ Sodium Chloride 5 ml @ 75 mls/hr DAILY IVP Last administered on 02/13/17 15:11; Start 02/13/17 at 15:00 Insulin Aspart (NovoLOG) 15 units Q6HRS SQ ; Start 02/13/17 at 18:00 Pantoprazole Sodium (PROTONIX VIAL for IV PUSH) 40 mg BIDAC IVP ; Start at 16:30 Active Scripts Active Reported Ferrous Sulfate 325 Mg Tablet 1 Tab PO BID LAST DOSE GIVEN: DATE:01/08/17 TIME:9:00 a.m. Warfarin Sodium 5 Mg Tablet 1 Tab PO DAILY 30 Days LAST DOSE GIVEN: DATE:01/08/17 TIME:2:00 p.m Levothyroxine Sodium 137 Mcg Tablet 137 Mcg PO DAILYAC LAST DOSE GIVEN: DATE:01/08/17 TIME:7:30 a.m. Furosemide 40 Mg Tablet 40 Mg PO DAILY LAST DOSE GIVEN: DATE:01/07/17 TIME:9:00 a.m. Aspirin 81 Mg Tab.chew 1 Tab PO DAILY LAST DOSE GIVEN: DATE:01/08/17 TIME:9:00 a.m. Hydrocodone-Apap 7.5-325 (Hydrocodone Bit/Acetaminophen) 1 Each Tablet 1-2 Tab PO PRN Q6HRS PRN Took at 12:30 today may take anytime as needed for pain every 4 hours Amaryl (Glimepiride) 4 Mg Tablet 1 Tab PO BID LAST DOSE GIVEN: DATE:01/08/17 TIME:9:00 a.m. Potassium Chloride 20 Meq Tab.er.prt 1 Tab PO WEEKLY Meds not given this hospital admission. May resume home medications as approved by Physician. TIME: 8:30 a.m. NEXT DOSE DUE: DATE: 12-28-15 TIME: 8:30 a.m. Metolazone 5 Mg Tablet 5 Mg PO WEEKLY Meds not given this hospital admission. May resume home medications as approved by Physician. TIME: 8:30 a.m. NEXT DOSE DUE: DATE: 12-28-15 TIME: 8:30 a.m. Lexapro (Escitalopram Oxalate) 10 Mg Tablet 20 Mg PO DAILY LAST DOSE GIVEN: DATE:01/08/17 TIME:9:00 a.m. NEXT DOSE DUE: DATE: 12-28-15 TIME: 8:30 a.m. Cardizem Cd (Diltiazem Hcl) 240 Mg Cap.er.24h 120 Mg PO HS LAST DOSE GIVEN: DATE:01/07/17 TIME:9:00 p.m. NEXT DOSE DUE: DATE: 12-27-15 TIME: 9:00 p.m. Losartan Potassium 100 Mg Tablet 25 Mg PO DAILY LAST DOSE GIVEN: DATE:01/07/17 TIME:9:00 a.m. Crestor (Rosuvastatin Calcium) 40 Mg Tablet 40 Mg PO QHS LAST DOSE GIVEN: DATE:01/07/17 TIME:9:00 p.m. NEXT DOSE DUE: DATE: 12-27-15 TIME: 9:00 p.m. Vitals/I & O Vital Sign - Last 24 Hours 02/12/17 02/12/17 02/12/17 02/12/17 16:00 16:00 16:00 17:00 Temp 98.0 98.0 Pulse 127 Resp 24 B/P (MAP) 109/67 (81) Pulse Ox 99 97 O2 Delivery Nasal Cannula Nasal Cannula Nasal Cannula O2 Flow Rate 2.0 2.0 2.0 3.0 02/12/17 02/12/17 02/12/17 02/12/17 17:00 17:15 17:30 18:00 Temp 98.0 98.0 98.0 98.0 Pulse 130 103 118 100 Resp 24 14 B/P (MAP) 127/75 (92) 132/85 132/59 140/77 (98) Pulse Ox 94 94 O2 Delivery Nasal Cannula Nasal Cannula O2 Flow Rate 2.0 2.0 02/12/17 02/12/17 02/12/17 02/12/17 19:00 19:51 20:00 20:00 Temp 98.9 98.9 Pulse 109 114 Resp 24 14 B/P (MAP) 135/54 (81) 126/70 (88) Pulse Ox 97 95 96 O2 Delivery Nasal Cannula Nasal Cannula Nasal Cannula Nasal Cannula O2 Flow Rate 2.0 3.0 2.0 2.0 02/12/17 02/12/17 02/12/17 02/12/17 20:00 20:54 21:00 22:00 Temp 98.9 98.9 Pulse 123 131 109 Resp 25 14 23 B/P (MAP) 145/67 142/70 (94) 133/64 (87) Pulse Ox 96 96 O2 Delivery Nasal Cannula Nasal Cannula O2 Flow Rate 2.0 2.0 2.0 02/12/17 02/12/17 02/12/17 02/12/17 23:00 23:31 23:37 23:59 Temp 98.5 98.5 Pulse 126 131 114 Resp 19 23 B/P (MAP) 110/49 (69) 142/70 124/67 Pulse Ox 96 O2 Delivery Nasal Cannula Nasal Cannula O2 Flow Rate 2.0 2.0 02/13/17 02/13/17 02/13/17 02/13/17 00:00 00:00 01:00 02:00 Temp 98.5 98.5 Pulse 100 100 122 Resp 19 19 34 B/P (MAP) 124/71 (88) 117/52 (73) 105/54 (71) Pulse Ox 96 96 96 O2 Delivery Nasal Cannula Nasal Cannula Nasal Cannula O2 Flow Rate 2.0 2.0 2.0 2.0 12/02/13/17 02/13/17 02/13/17 03:00 04:00 04:00 04:00 Temp 98.4 98.4 Pulse 138 94 Resp 19 19 B/P (MAP) 124/71 (88) 124/71 (88) Pulse Ox 96 96 O2 Delivery Nasal Cannula Nasal Cannula Nasal Cannula O2 Flow Rate 2.0 2.0 2.0 2.0 02/13/17 02/13/17 02/13/17 02/13/17 05:00 05:09 05:17 06:00 Pulse 96 93 Resp 19 19 B/P (MAP) 147/73 (97) 146/65 (92) Pulse Ox 97 93 93 O2 Delivery BiPAP/CPAP BiPAP/CPAP BiPAP/CPAP O2 Flow Rate 2.0 02/13/17 02/13/17 02/13/17 02/13/17 07:00 07:55 08:00 08:00 Temp 96.9 96.9 Pulse 92 104 Resp 24 B/P (MAP) 146/65 (92) 145/67 (93) Pulse Ox 90 92 90 O2 Delivery BiPAP/CPAP BiPAP/CPAP Nasal Cannula Bi-pap O2 Flow Rate 4.0 02/13/17 02/13/17 02/13/17 02/13/17 08:14 09:00 09:19 10:00 Pulse 121 138 96 Resp 30 18 B/P (MAP) 156/63 151/81 (104) 151/64 (93) Pulse Ox 90 94 93 O2 Delivery BiPAP/CPAP BiPAP/CPAP BiPAP/CPAP 02/13/17 02/13/17 02/13/17 02/13/17 11:00 12:00 12:00 12:14 Temp 97.1 97.1 Pulse 87 80 Resp 17 B/P (MAP) 153/80 (104) 148/71 (96) Pulse Ox 91 96 94 O2 Delivery BiPAP/CPAP BiPAP/CPAP Bi-pap BiPAP/CPAP 02/13/17 02/13/17 02/13/17 02/13/17 13:00 13:38 14:00 15:00 Pulse 76 84 77 Resp 19 20 19 B/P (MAP) 156/68 (97) 140/66 (90) 147/59 (88) Pulse Ox 96 94 94 97 O2 Delivery BiPAP/CPAP BiPAP/CPAP BiPAP/CPAP BiPAP/CPAP Intake and Output 02/12/17 02/12/17 02/13/17 15:00 23:00 07:00 Intake Total 1076 ml 368 ml Output Total 725 ml 1000 ml 590 ml Balance -725 ml 76 ml -222 ml Problem List Problems Medical Problems: (1) Acute on chronic congestive heart failure Status: Acute (2) COPD (chronic obstructive pulmonary disease) Status: Acute (3) Healthcare-associated pneumonia Status: Acute (4) Morbid obesity Status: Acute (5) Sepsis Status: Acute (6) Severe protein-calorie malnutrition Status: Acute (7) Urinary tract infection Status: Acute Assessment Chronic blood loss anemia- most likely SB source, co-morbidities are excessive high, assisted goals unclear, possible palliative care/hospice evaluation HOLA BREWSTER MD Feb 13, 2017 15:29
[2017-02-13 15:35] LABS: INR 1.4 (0.8-1.1); PROTHROMBIN TIME PATIENT 16.6 SEC (11.7-14.0)
[2017-02-13] MEDS: PANTOPRAZOLE IV PUSH 40 MG VIAL. IVP SCH (17:31)
[2017-02-13] MEDS: ATORVASTATIN CALCIUM 40 MG TABLET. PO SCH (20:20)
[2017-02-13] MEDS ORDERED: TOTAL PARENTERAL NUTRITION IV SCH ×10 (22:00)
[2017-02-13] MEDS ORDERED: DEXTROSE 70% IV SCH ×10 (22:00)
[2017-02-13] MEDS ORDERED: AMINO ACIDS IV SCH ×10 (22:00)
[2017-02-13] MEDS ORDERED: [UNRECOGNIZED DRUG - OTHER] IV SCH ×10 (22:00)
[2017-02-14] VITALS (16 sets, daily range): BP systolic 113–159; BP diastolic 48–93
[2017-02-14] MEDS: INSULIN ASPART 300 UNITS/3 ML INSULN.PEN SQ SCH ×8 (01:49→22:15)
[2017-02-14] MEDS: IPRATRPIUM/ALBUTEROL 0.5/2.5MG 3 ML NEBU. NEB SCH ×6 (03:39→23:53)
[2017-02-14] MEDS: methylPREDNISolone SOD SUCC PF 40 MG/ML VIAL. IV SCH ×3 (06:07→22:13)
[2017-02-14 06:46] LABS: HEMATOCRIT 26.8 % (36.0-47.0); HEMOGLOBIN 8.6 g/dL (12.0-15.5); RED BLOOD COUNT 2.94 x10^6/uL (3.50-5.40); RED CELL DISTRIBUTION WIDTH 15.3 % (11.5-14.5); WHITE BLOOD COUNT 11.4 x10^3/uL (4.0-11.0)
[2017-02-14 07:02] LABS: CALCIUM 8.4 mg/dL (8.5-10.1); CREATININE 0.7 mg/dL (0.6-1.0); GFR 80.9; MAGNESIUM 2.4 mg/dL (1.8-2.4); PHOSPHORUS 3.2 mg/dL (2.6-4.7); POTASSIUM 4.5 mmol/L (3.5-5.1)
[2017-02-14] MEDS: LEVOTHYROXINE 137 MCG TABLET PO SCH (07:30)
[2017-02-14] MEDS: GLIMEPIRIDE 2 MG TABLET. PO SCH ×2 (08:00→16:55)
[2017-02-14] MEDS: CITALOPRAM 20 MG TABLET. PO SCH (08:03)
[2017-02-14] MEDS: LACTOBACILLUS RHAMNOSUS GG 1 CAPSULE. PO SCH (08:03)
[2017-02-14] MEDS: FERROUS SULFATE ORAL 300 MG/5 ML SOLUTION. PO SCH ×2 (08:03→20:51)
[2017-02-14 08:39] LABS: HCO3 ABG 37 mmol/L (21-28); PCO2 ABG 51 mmHg (35-46); PH ABG 7.47 (7.35-7.45); PO2 ABG 70 mmHg (65-108); SAT O2 ABG 93 % (92-99)
[2017-02-14 08:44] LABS: FIO2 ABG 30
[2017-02-14] MEDS: NORMAL SALINE IVP SCH (09:16)
[2017-02-14] MEDS: LEVOTHYROXINE SODIUM IVP SCH (09:16)
[2017-02-14] MEDS: DIGOXIN IV 500 MCG/2 ML AMPUL. IV SCH (09:20)
[2017-02-14] MEDS: PANTOPRAZOLE IV PUSH 40 MG VIAL. IVP SCH ×2 (09:20→16:04)
[2017-02-14] MEDS: TPN PER PHARMACY MC PRN (12:35)
--- NOTE | 2017-02-14 13:04 | PDOC ---
PROGRESS NOTES Subjective Subjective No new complaints today Objective Objective Vital Signs Date Time Temp Pulse Resp B/P (MAP) Pulse Ox O2 Delivery O2 Flow Rate FiO2 02/14/17 12:26 96 Nasal Cannula 3.0 02/14/17 12:00 97.6 95 20 134/72 (92) 97.6 Intake and Output 02/14/17 07:00 Intake Total 764.01 ml Output Total 6560 ml Balance -5795.99 ml Intake Oral 0 ml IV Total 764.01 ml Output Urine Total 6560 ml Physical Exam Physical Exam No significant changes and cardiac exam Assessment Assessment Improving. Patient is waiting to see if she can start the by mouth route. May transfer out of ICU Problems Medical Problems: (1) Acute on chronic congestive heart failure Status: Acute (2) COPD (chronic obstructive pulmonary disease) Status: Acute (3) Healthcare-associated pneumonia Status: Acute (4) Morbid obesity Status: Acute (5) Sepsis Status: Acute (6) Severe protein-calorie malnutrition Status: Acute (7) Urinary tract infection Status: Acute Comment Review of Relevant I have reviewed the following items donald (where applicable) has been applied. Labs Laboratory Tests Test 02/12/17 18:14 02/12/17 23:51 02/13/17 06:15 02/13/17 06:21 Glucose (Fingerstick) 199 mg/dL (70-99) 185 mg/dL (70-99) 242 mg/dL (70-99) White Blood Count 10.8 x10^3/uL (4.0-11.0) Red Blood Count 2.81 x10^6/uL (3.50-5.40) Hemoglobin 8.4 g/dL (12.0-15.5) Hematocrit 25.8 % (36.0-47.0) Mean Corpuscular Volume 92 fL (79-100) Mean Corpuscular Hemoglobin 30 pg (25-35) Mean Corpuscular Hemoglobin Concent 33 g/dL (31-37) Red Cell Distribution Width 15.8 % (11.5-14.5) Platelet Count 202 x10^3/uL (140-400) Sodium Level 151 mmol/L (136-145) Potassium Level 4.8 mmol/L (3.5-5.1) Chloride Level 111 mmol/L (98-107) Carbon Dioxide Level 39 mmol/L (21-32) Anion Gap 1 (6-14) Blood Urea Nitrogen 29 mg/dL (7-20) Creatinine 0.7 mg/dL (0.6-1.0) Estimated GFR (Cockcroft-Gault) 80.9 BUN/Creatinine Ratio 41 (6-20) Glucose Level 261 mg/dL (70-99) Calcium Level 8.2 mg/dL (8.5-10.1) Phosphorus Level 3.7 mg/dL (2.6-4.7) Magnesium Level 2.5 mg/dL (1.8-2.4) Total Bilirubin 0.8 mg/dL (0.2-1.0) Aspartate Amino Transf (AST/SGOT) 22 U/L (15-37) Alanine Aminotransferase (ALT/SGPT) 24 U/L (14-59) Alkaline Phosphatase 53 U/L (46-116) Total Protein 4.9 g/dL (6.4-8.2) Albumin 2.4 g/dL (3.4-5.0) Albumin/Globulin Ratio 1.0 (1.0-1.7) Triglycerides Level 113 mg/dL (0-150) Test 02/13/17 11:20 02/13/17 15:18 02/13/17 17:17 02/13/17 21:53 Glucose (Fingerstick) 315 mg/dL (70-99) 319 mg/dL (70-99) 290 mg/dL (70-99) Prothrombin Time 16.6 SEC (11.7-14.0) Prothromb Time International Ratio 1.4 (0.8-1.1) Test 02/14/17 01:43 02/14/17 06:10 02/14/17 06:47 02/14/17 08:30 Glucose (Fingerstick) 300 mg/dL (70-99) 298 mg/dL (70-99) White Blood Count 11.4 x10^3/uL (4.0-11.0) Red Blood Count 2.94 x10^6/uL (3.50-5.40) Hemoglobin 8.6 g/dL (12.0-15.5) Hematocrit 26.8 % (36.0-47.0) Mean Corpuscular Volume 91 fL (79-100) Mean Corpuscular Hemoglobin 29 pg (25-35) Mean Corpuscular Hemoglobin Concent 32 g/dL (31-37) Red Cell Distribution Width 15.3 % (11.5-14.5) Platelet Count 221 x10^3/uL (140-400) Sodium Level 150 mmol/L (136-145) Potassium Level 4.5 mmol/L (3.5-5.1) Chloride Level 109 mmol/L (98-107) Carbon Dioxide Level 40 mmol/L (21-32) Anion Gap 1 (6-14) Blood Urea Nitrogen 27 mg/dL (7-20) Creatinine 0.7 mg/dL (0.6-1.0) Estimated GFR (Cockcroft-Gault) 80.9 Glucose Level 293 mg/dL (70-99) Calcium Level 8.4 mg/dL (8.5-10.1) Phosphorus Level 3.2 mg/dL (2.6-4.7) Magnesium Level 2.4 mg/dL (1.8-2.4) O2 Saturation 93 % (92-99) Arterial Blood pH 7.47 (7.35-7.45) Arterial Blood pCO2 at Patient Temp 51 mmHg (35-46) Arterial Blood pO2 at Patient Temp 70 mmHg (65-108) Arterial Blood HCO3 37 mmol/L (21-28) Arterial Blood Base Excess 12 mmol/L (-3-3) FiO2 30 Test 02/14/17 09:15 02/14/17 12:36 Glucose (Fingerstick) 304 mg/dL (70-99) 269 mg/dL (70-99) Laboratory Tests Test 02/13/17 15:18 02/13/17 17:17 02/13/17 21:53 02/14/17 01:43 Prothrombin Time 16.6 SEC (11.7-14.0) Prothromb Time International Ratio 1.4 (0.8-1.1) Glucose (Fingerstick) 319 mg/dL (70-99) 290 mg/dL (70-99) 300 mg/dL (70-99) Test 02/14/17 06:10 02/14/17 06:47 02/14/17 08:30 02/14/17 09:15 White Blood Count 11.4 x10^3/uL (4.0-11.0) Red Blood Count 2.94 x10^6/uL (3.50-5.40) Hemoglobin 8.6 g/dL (12.0-15.5) Hematocrit 26.8 % (36.0-47.0) Mean Corpuscular Volume 91 fL (79-100) Mean Corpuscular Hemoglobin 29 pg (25-35) Mean Corpuscular Hemoglobin Concent 32 g/dL (31-37) Red Cell Distribution Width 15.3 % (11.5-14.5) Platelet Count 221 x10^3/uL (140-400) Sodium Level 150 mmol/L (136-145) Potassium Level 4.5 mmol/L (3.5-5.1) Chloride Level 109 mmol/L (98-107) Carbon Dioxide Level 40 mmol/L (21-32) Anion Gap 1 (6-14) Blood Urea Nitrogen 27 mg/dL (7-20) Creatinine 0.7 mg/dL (0.6-1.0) Estimated GFR (Cockcroft-Gault) 80.9 Glucose Level 293 mg/dL (70-99) Calcium Level 8.4 mg/dL (8.5-10.1) Phosphorus Level 3.2 mg/dL (2.6-4.7) Magnesium Level 2.4 mg/dL (1.8-2.4) Glucose (Fingerstick) 298 mg/dL (70-99) 304 mg/dL (70-99) O2 Saturation 93 % (92-99) Arterial Blood pH 7.47 (7.35-7.45) Arterial Blood pCO2 at Patient Temp 51 mmHg (35-46) Arterial Blood pO2 at Patient Temp 70 mmHg (65-108) Arterial Blood HCO3 37 mmol/L (21-28) Arterial Blood Base Excess 12 mmol/L (-3-3) FiO2 30 Test 02/14/17 12:36 Glucose (Fingerstick) 269 mg/dL (70-99) Microbiology 02/05/17 Blood Culture - Final, Complete NO GROWTH AFTER 5 DAYS 02/05/17 Urine Culture - Final, Complete 02/05/17 Urine Culture Result 1 (BISI) - Final, Complete Medications Current Medications Sodium Chloride 1,000 ml @ 620 mls/hr Q1H37M IV Last administered on t 10:43; Start 02/05/17 at 09:05; Stop 02/05/17 at 12:05; Status DC Albuterol/ Ipratropium (Duoneb) 6 ml 1X ONCE NEB Last administered on 09:18; Start 02/05/17 at 09:15; Stop 02/05/17 at 09:16; Status DC Meropenem 1 gm/ Sodium Chloride 100 ml @ 200 mls/hr Q8HRS IV ; Start 02/05/17 at 14:00; Status UNV Vancomycin HCl (Vanco Per Pharmacy) 1 each PRN DAILY PRN MC SEE COMMENTS Last administered on 02/10/17 14:10; Start 02/05/17 at 11:30; Stop 02/11/17 at 08 :13; Status DC Levofloxacin/ Dextrose (Levaquin Per Pharmacy) 1 each PRN DAILY PRN MC SEE COMMENTS; Start 02/05/17 at 11:30; Stop 02/09/17 at 08:20; Status DC Vancomycin HCl 2 gm/Dextrose 500 ml @ 250 mls/hr 1X ONCE IV Last administered on 02/05/17 13:20; Start 02/05/17 at 12:00; Stop 02/05/17 at 13 :59; Status DC Meropenem (Merrem) 1 gm 1X ONCE IVP Last administered on 02/05/17 11:37; Start 02/05/17 at 12:00; Stop 02/05/17 at 19:17; Status DC Levofloxacin/ Dextrose 150 ml @ 100 mls/hr 1X ONCE IV Last administered on 11:38; Start 02/05/17 at 12:00; Stop 02/05/17 at 13:29; Status DC Methylprednisolone Sodium Succinate (SOLU-Medrol 125MG VIAL) 125 mg 1X ONCE IV Last administered on 02/05/17 12:06; Start 02/05/17 at 11:45; Stop at 11:59; Status DC Ondansetron HCl (Zofran) 4 mg PRN Q8HRS PRN IV NAUSEA/VOMITING; Start at 12:00; Stop 02/06/17 at 11:59; Status DC Sodium Chloride 1,000 ml @ 75 mls/hr [id number] IV Last administered on 16:24; Start 02/05/17 at 11:46; Stop 02/06/17 at 11:19; Status DC Acetaminophen (Tylenol) 650 mg PRN Q4HRS PRN PO FEVER Last administered on 03:34; Start 02/05/17 at 12:00; Stop 02/06/17 at 11:59; Status DC Albuterol/ Ipratropium (Duoneb) 3 ml RTQID NEB Last administered on 02/06/17 09:33; Start 02/05/17 at 12:00; Stop 02/06/17 at 11:59; Status DC Dobutamine HCl 2000 mg/Dextrose 250 ml @ 4.59 mls/hr CONT IV ; Start 02/05/17 at 12:00; Stop 02/05/17 at 13:17; Status DC Dobutamine HCl/ Dextrose 250 ml @ 18.375 mls/ hr CONT PRN IV SEE I/O RECORD; Start 02/05/17 at 13:15 Meropenem (Merrem) 1 gm Q8HRS IVP Last administered on 02/05/17 21:03; Start 02/05/17 at 21:00; Stop 02/05/17 at 21:53; Status DC Levofloxacin/ Dextrose 150 ml @ 100 mls/hr Q24H IV Last administered on 20:36; Start 02/06/17 at 12:00; Stop 02/09/17 at 08:24; Status DC Vancomycin HCl 1.75 gm/Dextrose/ Sodium Chloride 500 ml @ 250 mls/hr Q18H IV Last administered on 02/07/17 19:48; Start 02/06/17 at 07:00; Stop 02/08/17 at 13:27; Status DC Vancomycin HCl 1 each 1X ONCE MC Last administered on 02/07/17 00:30; Start 02/07/17 at 00:30; Stop 02/07/17 at 00:31; Status DC Methylprednisolone Sodium Succinate (SOLU-Medrol 40MG VIAL) 40 mg Q8HRS IV Last administered on 02/11/17 06:02; Start 02/05/17 at 16:00; Stop 02/11/17 at 13:17; Status DC Enoxaparin Sodium (Lovenox 40mg Syringe) 40 mg Q24H SQ Last administered on 16:24; Start 02/05/17 at 16:00; Stop 02/05/17 at 21:19; Status DC Aspirin (Children'S Aspirin) 81 mg DAILY PO Last administered on 02/08/17 08: 41; Start 02/06/17 at 09:00; Stop 02/12/17 at 09:29; Status DC Diltiazem HCl (Cardizem 24hr Cd) 120 mg QHS PO Last administered on 02/12/17 23:31; Start 02/05/17 at 21:00 Ferrous Sulfate (Feosol) 325 mg BID PO Last administered on 02/12/17 23:30; Start 02/05/17 at 21:00; Stop 02/13/17 at 08:13; Status DC Acetaminophen/ Hydrocodone Bitart (Lortab 7.5/325) 2 tab PRN Q6HRS PRN PO PAIN Last administered on 02/10/17 19:56; Start 02/05/17 at 17:15 Levothyroxine Sodium (Synthroid) 137 mcg DAILYAC PO Last administered on 08:51; Start 02/06/17 at 07:30 Warfarin Sodium (Coumadin) 5 mg DAILY16 PO Last administered on 02/07/17 17: 28; Start 02/05/17 at 22:00; Stop 02/08/17 at 09:53; Status DC Citalopram Hydrobromide (CeleXA) 40 mg DAILY PO Last administered on 08:51; Start 02/06/17 at 09:00 Glimepiride (Amaryl) 4 mg BIDWMEALS PO Last administered on 02/12/17 18:12; Start 02/05/17 at 17:30 Losartan Potassium (Cozaar) 25 mg DAILY PO ; Start 02/06/17 at 09:00; Stop at 11:22; Status DC Atorvastatin Calcium (Lipitor) 80 mg QHS PO Last administered on 02/12/17 23: 30; Start 02/05/17 at 21:00 Insulin Aspart (NovoLOG) 0-12 UNITS QIDACHS SQ Last administered on 02/14/17 12:38; Start 02/05/17 at 18:00 Norepinephrine Bitartrate 250 ml @ 0 mls/hr CONT PRN IV SEE I/O RECORD; Start 02/05/17 at 19:00 Albuterol/ Ipratropium (Duoneb) 3 ml STK-MED ONCE .ROUTE ; Start 02/05/17 at 19 :16; Stop 02/05/17 at 19:17; Status DC Meropenem (Merrem) 1 gm Q8HRS IVP Last administered on 02/08/17 05:33; Start 02/06/17 at 06:00; Stop 02/08/17 at 09:00; Status DC Warfarin Sodium (Coumadin Per Physician) 1 each PRN DAILY PRN MC SEE COMMENTS; Start 02/06/17 at 07:45; Status Cancel Lactobacillus Rhamnosus (Culturelle) 1 cap BID PO Last administered on 23:46; Start 02/06/17 at 09:00; Stop 02/14/17 at 12:42; Status DC Albuterol/ Ipratropium (Duoneb) 3 ml RTQID NEB Last administered on 02/13/17 07:54; Start 02/06/17 at 16:00; Stop 02/13/17 at 09:54; Status DC Alprazolam (Xanax) 0.5 mg PRN TID PRN PO ANXIETY / AGITATION Last administered on 02/12/17 23:30; Start 02/06/17 at 17:30 Metformin HCl (Glucophage) 500 mg BIDWMEALS PO Last administered on 02/12/17 18:12; Start 02/07/17 at 12:00; Stop 02/13/17 at 03:02; Status DC Polyethylene Glycol (miraLAX PACKET) 17 gm PRN DAILY PRN PO CONSTIPATION Last administered on 02/07/17 21:29; Start 02/07/17 at 20:00 Alteplase, Recombinant (Cathflo) 2 mg 1X ONCE INT CAT Last administered on 07:32; Start 02/08/17 at 08:00; Stop 02/08/17 at 08:01; Status DC Pantoprazole Sodium 80 mg/ Sodium Chloride 100 ml @ 10 mls/hr Q10H IV Last administered on 02/13/17 03:42; Start 02/08/17 at 13:30; Stop 02/13/17 at 15 :21; Status DC Vancomycin HCl 1.75 gm/Dextrose/ Sodium Chloride 500 ml @ 250 mls/hr Q18H IV Last administered on 02/11/17 02:15; Start 02/08/17 at 21:00; Stop 02/11/17 at 08:15; Status DC Digoxin (Lanoxin) 500 mcg 1X ONCE IV Last administered on 02/08/17 18:30; Start 02/08/17 at 18:15; Stop 02/08/17 at 18:26; Status DC Digoxin (Lanoxin) 250 mcg 1X ONCE IV Last administered on 02/08/17 19:56; Start 02/08/17 at 19:45; Stop 02/08/17 at 19:46; Status DC Fentanyl Citrate (Fentanyl 2ml Vial) 50 mcg PRN Q3HRS PRN IV PAIN Last administered on 02/08/17 21:09; Start 02/08/17 at 20:30 Albumin Human 500 ml @ 125 mls/hr 1X ONCE IV Last administered on 02/08/17 23:38; Start 02/08/17 at 22:00; Stop 02/09/17 at 01:59; Status DC Phytonadione 10 mg/Sodium Chloride 51 ml @ 102 mls/hr 1X ONCE IV Last administered on 02/09/17 07:24; Start 02/09/17 at 08:00; Stop 02/09/17 at 08 :29; Status DC Throat Lozenges (Chloraseptic) 1 spray PRN Q2HR PRN PO SORE THROAT Last administered on 02/09/17 13:40; Start 02/09/17 at 08:45 Digoxin (Lanoxin) 125 mcg 1X ONCE IV Last administered on 02/10/17 13:02; Start 02/10/17 at 12:15; Stop 02/10/17 at 12:16; Status DC Insulin Aspart (NovoLOG) 6 units Q6HRS SQ Last administered on 02/11/17 06:20 ; Start 02/10/17 at 15:00; Stop 02/11/17 at 11:54; Status DC Sodium Chloride (Saline Mist Nasal) 1 nara PRN Q1HR PRN NS NASAL CONGESTION; Start 02/10/17 at 17:30 Vancomycin HCl 1 each 1X ONCE MC ; Start 02/11/17 at 20:30; Stop 02/11/17 at 20:31; Status Cancel Insulin Aspart (NovoLOG) 10 units Q6HRS SQ Last administered on 02/13/17 11: 26; Start 02/11/17 at 12:00; Stop 02/13/17 at 14:10; Status DC Methylprednisolone Sodium Succinate (SOLU-Medrol 40MG VIAL) 40 mg DAILY IV Last administered on 02/13/17 08:13; Start 02/12/17 at 09:00; Stop 02/13/17 at 09:54; Status DC Sodium Chloride 1,000 ml @ 85 mls/hr [id number] IV Last administered on 14:21; Start 02/11/17 at 14:00; Stop 02/12/17 at 01:45; Status DC Artificial Tears (Artificial Tears) 1 drop PRN Q15MIN PRN OU DRY EYE; Start at 19:15 Phytonadione (Vitamin K Ampule) 5 mg 1X ONCE SQ Last administered on 11:32; Start 02/12/17 at 09:45; Stop 02/12/17 at 09:46; Status DC Info 1 each PRN DAILY PRN MC SEE COMMENTS Last administered on 02/14/17 12:35 ; Start 02/12/17 at 09:45 Sodium Chloride 60 meq/Potassium Chloride 25 meq/ Potassium Phosphate 13.6 mmol/ Magnesium Sulfate 5 meq/ Calcium Gluconate 10 meq/ Multivitamins 10 ml/Chromium / Copper/Manganese/ Seleni/Zn 1 ml/ Potassium Acetate 25 meq/Total Parenteral Nutrition/Amino Acids/Dextrose/ Fat Emuls... 1,512 ml @ 63 mls/hr TPN CONT IV Last administered on 02/12/17 23:32; Start 02/12/17 at 22:00; Stop at 21:59; Status DC Digoxin (Lanoxin) 250 mcg DAILY IV Last administered on 02/14/17 09:20; Start 02/12/17 at 14:30 Hydrocortisone Sodium Succinate (Solu-CORTEF) 125 mg 1X ONCE IV Last administered on 02/12/17 23:20; Start 02/12/17 at 16:15; Stop 02/12/17 at 16 :16; Status DC Diphenhydramine HCl (Benadryl) 50 mg 1X ONCE IVP Last administered on 23:21; Start 02/12/17 at 16:15; Stop 02/12/17 at 16:16; Status DC Famotidine (Pepcid Vial) 40 mg 1X ONCE IVP Last administered on 02/12/17 23: 21; Start 02/12/17 at 16:15; Stop 02/12/17 at 16:16; Status DC Diphenhydramine HCl (Benadryl) 25 mg 1X ONCE IVP Last administered on 23:47; Start 02/12/17 at 18:15; Stop 02/12/17 at 18:16; Status DC Iohexol (Omnipaque 300 Mg/ml) 90 ml 1X ONCE IV Last administered on 03:13; Start 02/13/17 at 03:30; Stop 02/13/17 at 03:31; Status DC Metformin HCl (Glucophage) 500 mg BIDWMEALS PO ; Start 02/15/17 at 08:00 Ferrous Sulfate 300 mg BID PO ; Start 02/13/17 at 09:00 Albuterol/ Ipratropium (Duoneb) 3 ml Q4HRS NEB Last administered on 02/14/17 12:24; Start 02/13/17 at 12:00 Methylprednisolone Sodium Succinate (SOLU-Medrol 40MG VIAL) 60 mg Q8HRS IV Last administered on 02/14/17 06:07; Start 02/13/17 at 14:00 Potassium Chloride 25 meq/ Potassium Phosphate 13.6 mmol/Magnesium Sulfate 2.5 meq/ Calcium Gluconate 10 meq/ Multivitamins 10 ml/Chromium/ Copper/Manganese/ Seleni/Zn 1 ml/ Potassium Acetate 25 meq/Total Parenteral Nutrition/Amino Acids/ Dextrose/ Fat Emulsion Intravenous 1,512 ml @ 63 mls/hr TPN CONT IV Last administered on 02/13/17 22:12; Start 02/13/17 at 22:00; Stop 02/14/17 at 21 :59 Furosemide (Lasix) 40 mg 1X ONCE IVP Last administered on 02/13/17 13:41; Start 02/13/17 at 13:00; Stop 02/13/17 at 13:01; Status DC Lorazepam (Ativan) 0.5 mg PRN Q4HRS PRN IV ANXIETY / AGITATION Last administered on 02/13/17 21:59; Start 02/13/17 at 14:15 Levothyroxine Sodium 75 mcg/ Sodium Chloride 5 ml @ 75 mls/hr DAILY IVP Last administered on 02/14/17 09:16; Start 02/13/17 at 15:00 Insulin Aspart (NovoLOG) 15 units Q6HRS SQ Last administered on 02/14/17 12: 39; Start 02/13/17 at 18:00 Pantoprazole Sodium (PROTONIX VIAL for IV PUSH) 40 mg BIDAC IVP Last administered on 02/14/17 09:20; Start 02/13/17 at 16:30 Potassium Chloride 40 meq/ Potassium Acetate 10 meq/Potassium Phosphate 13.6 mmol/Magnesium Sulfate 2.5 meq/ Calcium Gluconate 10 meq/ Multivitamins 10 ml/ Chromium/ Copper/Manganese/ Seleni/Zn 1 ml/ Total Parenteral Nutrition/Amino Acids/Dextrose/ Fat Emulsion Intravenous 1,512 ml @ 63 mls/hr TPN CONT IV ; Start 02/14/17 at 22:00; Stop 02/15/17 at 21:59 Active Scripts Active Reported Ferrous Sulfate 325 Mg Tablet 1 Tab PO BID LAST DOSE GIVEN: DATE:01/08/17 TIME:9:00 a.m. Warfarin Sodium 5 Mg Tablet 1 Tab PO DAILY 30 Days LAST DOSE GIVEN: DATE:01/08/17 TIME:2:00 p.m Levothyroxine Sodium 137 Mcg Tablet 137 Mcg PO DAILYAC LAST DOSE GIVEN: DATE:01/08/17 TIME:7:30 a.m. Furosemide 40 Mg Tablet 40 Mg PO DAILY LAST DOSE GIVEN: DATE:01/07/17 TIME:9:00 a.m. Aspirin 81 Mg Tab.chew 1 Tab PO DAILY LAST DOSE GIVEN: DATE:01/08/17 TIME:9:00 a.m. Hydrocodone-Apap 7.5-325 (Hydrocodone Bit/Acetaminophen) 1 Each Tablet 1-2 Tab PO PRN Q6HRS PRN Took at 12:30 today may take anytime as needed for pain every 4 hours Amaryl (Glimepiride) 4 Mg Tablet 1 Tab PO BID LAST DOSE GIVEN: DATE:01/08/17 TIME:9:00 a.m. Potassium Chloride 20 Meq Tab.er.prt 1 Tab PO WEEKLY Meds not given this hospital admission. May resume home medications as approved by Physician. TIME: 8:30 a.m. NEXT DOSE DUE: DATE: 12-28-15 TIME: 8:30 a.m. Metolazone 5 Mg Tablet 5 Mg PO WEEKLY Meds not given this hospital admission. May resume home medications as approved by Physician. TIME: 8:30 a.m. NEXT DOSE DUE: DATE: 12-28-15 TIME: 8:30 a.m. Lexapro (Escitalopram Oxalate) 10 Mg Tablet 20 Mg PO DAILY LAST DOSE GIVEN: DATE:01/08/17 TIME:9:00 a.m. NEXT DOSE DUE: DATE: 12-28-15 TIME: 8:30 a.m. Cardizem Cd (Diltiazem Hcl) 240 Mg Cap.er.24h 120 Mg PO HS LAST DOSE GIVEN: DATE:01/07/17 TIME:9:00 p.m. NEXT DOSE DUE: DATE: 12-27-15 TIME: 9:00 p.m. Losartan Potassium 100 Mg Tablet 25 Mg PO DAILY LAST DOSE GIVEN: DATE:01/07/17 TIME:9:00 a.m. Crestor (Rosuvastatin Calcium) 40 Mg Tablet 40 Mg PO QHS LAST DOSE GIVEN: DATE:01/07/17 TIME:9:00 p.m. NEXT DOSE DUE: DATE: 12-27-15 TIME: 9:00 p.m. Vitals/I & O Vital Sign - Last 24 Hours 02/13/17 02/13/17 02/13/17 02/13/17 13:38 14:00 15:00 16:00 Pulse 84 77 Resp 20 19 B/P (MAP) 140/66 (90) 147/59 (88) Pulse Ox 94 94 97 O2 Delivery BiPAP/CPAP BiPAP/CPAP BiPAP/CPAP Bi-pap 02/13/17 02/13/17 02/13/17 02/13/17 16:00 16:35 17:00 18:00 Temp 98.0 98.0 Pulse 92 93 96 Resp 21 23 18 B/P (MAP) 155/65 (95) 142/71 (94) 140/72 (94) Pulse Ox 96 95 96 94 O2 Delivery BiPAP/CPAP BiPAP/CPAP BiPAP/CPAP BiPAP/CPAP 02/13/17 02/13/17 02/13/17 02/13/17 18:04 19:00 19:26 20:00 Temp 97.9 97.9 Pulse 87 Resp 18 B/P (MAP) 150/72 (98) Pulse Ox 96 96 96 O2 Delivery BiPAP/CPAP BiPAP/CPAP BiPAP/CPAP Bi-pap 02/13/17 02/13/17 02/13/17 02/13/17 20:00 21:00 22:00 23:00 Pulse 96 96 96 92 Resp 24 B/P (MAP) 144/64 (90) 131/72 (91) 153/71 (98) 147/77 (100) Pulse Ox 96 97 97 97 O2 Delivery BiPAP/CPAP BiPAP/CPAP Nasal Cannula Nasal Cannula O2 Flow Rate 3.0 3.0 02/13/17 02/14/17 02/14/17 02/14/17 23:35 00:00 00:00 01:00 Temp 98.5 98.5 Pulse 102 96 Resp B/P (MAP) 153/85 (107) 155/92 (113) Pulse Ox 98 96 97 O2 Delivery Nasal Cannula Bi-pap Nasal Cannula Nasal Cannula O2 Flow Rate 6.0 3.0 3.0 02/14/17 02/14/17 02/14/17 02/14/17 02:00 03:00 03:41 04:00 Pulse 98 104 Resp B/P (MAP) 159/88 (111) 148/65 (92) Pulse Ox 97 97 97 O2 Delivery Nasal Cannula Nasal Cannula Nasal Cannula Bi-pap O2 Flow Rate 3.0 3.0 5.0 02/14/17 02/14/17 02/14/17 02/14/17 04:00 05:00 05:38 06:00 Temp 98.7 98.7 Pulse 92 92 104 Resp B/P (MAP) 136/70 (92) 124/58 (80) 148/65 (92) Pulse Ox 96 97 95 97 O2 Delivery BiPAP/CPAP BiPAP/CPAP BiPAP/CPAP 02/14/17 02/14/17 02/14/17 02/14/17 07:00 08:00 08:00 08:00 Temp 98.2 98.2 Pulse 86 94 Resp 21 B/P (MAP) 123/52 (75) 133/61 (85) Pulse Ox 98 97 O2 Delivery Nasal Cannula Nasal Cannula Nasal Cannula O2 Flow Rate 3.0 3.0 3.0 3.0 02/14/17 02/14/17 02/14/17 02/14/17 08:32 09:00 09:20 10:00 Pulse 96 90 105 Resp 21 B/P (MAP) 142/62 (88) 142/60 146/93 (110) Pulse Ox 96 97 96 O2 Delivery BiPAP/CPAP Nasal Cannula Nasal Cannula O2 Flow Rate 3.0 3.0 02/14/17 02/14/17 02/14/17 02/14/17 11:00 12:00 12:00 12:00 Temp 97.6 97.6 Pulse 97 95 Resp 21 20 B/P (MAP) 138/62 (87) 134/72 (92) Pulse Ox 96 98 O2 Delivery Nasal Cannula Nasal Cannula Nasal Cannula O2 Flow Rate 3.0 3.0 3.0 3.0 02/14/17 12:26 Pulse Ox 96 O2 Delivery Nasal Cannula O2 Flow Rate 3.0 Intake and Output 02/13/17 02/13/17 02/14/17 15:00 23:00 07:00 Intake Total 764.01 ml 0 ml Output Total 1910 ml 3200 ml 1450 ml Balance -1910 ml -2435.99 ml -1450 ml CRYSTAL ARCHULETA MD Feb 14, 2017 13:04
--- NOTE | 2017-02-14 13:08 | PDOC ---
G I PROGRESS NOTE Reason for Follow-up Chronic blood loss anemia/melena Subjective Thirsty/hungry wants to try po Physical Exam Lungs decreased BS CV S1 S2 ABD +BS, soft, nontender Review of Relevant I have reviewed the following items donald (where applicable) has been applied. Labs Laboratory Tests Test 02/12/17 18:14 02/12/17 23:51 02/13/17 06:15 02/13/17 06:21 Glucose (Fingerstick) 199 mg/dL (70-99) 185 mg/dL (70-99) 242 mg/dL (70-99) White Blood Count 10.8 x10^3/uL (4.0-11.0) Red Blood Count 2.81 x10^6/uL (3.50-5.40) Hemoglobin 8.4 g/dL (12.0-15.5) Hematocrit 25.8 % (36.0-47.0) Mean Corpuscular Volume 92 fL (79-100) Mean Corpuscular Hemoglobin 30 pg (25-35) Mean Corpuscular Hemoglobin Concent 33 g/dL (31-37) Red Cell Distribution Width 15.8 % (11.5-14.5) Platelet Count 202 x10^3/uL (140-400) Sodium Level 151 mmol/L (136-145) Potassium Level 4.8 mmol/L (3.5-5.1) Chloride Level 111 mmol/L (98-107) Carbon Dioxide Level 39 mmol/L (21-32) Anion Gap 1 (6-14) Blood Urea Nitrogen 29 mg/dL (7-20) Creatinine 0.7 mg/dL (0.6-1.0) Estimated GFR (Cockcroft-Gault) 80.9 BUN/Creatinine Ratio 41 (6-20) Glucose Level 261 mg/dL (70-99) Calcium Level 8.2 mg/dL (8.5-10.1) Phosphorus Level 3.7 mg/dL (2.6-4.7) Magnesium Level 2.5 mg/dL (1.8-2.4) Total Bilirubin 0.8 mg/dL (0.2-1.0) Aspartate Amino Transf (AST/SGOT) 22 U/L (15-37) Alanine Aminotransferase (ALT/SGPT) 24 U/L (14-59) Alkaline Phosphatase 53 U/L (46-116) Total Protein 4.9 g/dL (6.4-8.2) Albumin 2.4 g/dL (3.4-5.0) Albumin/Globulin Ratio 1.0 (1.0-1.7) Triglycerides Level 113 mg/dL (0-150) Test 02/13/17 11:20 02/13/17 15:18 02/13/17 17:17 02/13/17 21:53 Glucose (Fingerstick) 315 mg/dL (70-99) 319 mg/dL (70-99) 290 mg/dL (70-99) Prothrombin Time 16.6 SEC (11.7-14.0) Prothromb Time International Ratio 1.4 (0.8-1.1) Test 02/14/17 01:43 02/14/17 06:10 02/14/17 06:47 02/14/17 08:30 Glucose (Fingerstick) 300 mg/dL (70-99) 298 mg/dL (70-99) White Blood Count 11.4 x10^3/uL (4.0-11.0) Red Blood Count 2.94 x10^6/uL (3.50-5.40) Hemoglobin 8.6 g/dL (12.0-15.5) Hematocrit 26.8 % (36.0-47.0) Mean Corpuscular Volume 91 fL (79-100) Mean Corpuscular Hemoglobin 29 pg (25-35) Mean Corpuscular Hemoglobin Concent 32 g/dL (31-37) Red Cell Distribution Width 15.3 % (11.5-14.5) Platelet Count 221 x10^3/uL (140-400) Sodium Level 150 mmol/L (136-145) Potassium Level 4.5 mmol/L (3.5-5.1) Chloride Level 109 mmol/L (98-107) Carbon Dioxide Level 40 mmol/L (21-32) Anion Gap 1 (6-14) Blood Urea Nitrogen 27 mg/dL (7-20) Creatinine 0.7 mg/dL (0.6-1.0) Estimated GFR (Cockcroft-Gault) 80.9 Glucose Level 293 mg/dL (70-99) Calcium Level 8.4 mg/dL (8.5-10.1) Phosphorus Level 3.2 mg/dL (2.6-4.7) Magnesium Level 2.4 mg/dL (1.8-2.4) O2 Saturation 93 % (92-99) Arterial Blood pH 7.47 (7.35-7.45) Arterial Blood pCO2 at Patient Temp 51 mmHg (35-46) Arterial Blood pO2 at Patient Temp 70 mmHg (65-108) Arterial Blood HCO3 37 mmol/L (21-28) Arterial Blood Base Excess 12 mmol/L (-3-3) FiO2 30 Test 02/14/17 09:15 02/14/17 12:36 Glucose (Fingerstick) 304 mg/dL (70-99) 269 mg/dL (70-99) Laboratory Tests Test 02/13/17 15:18 02/13/17 17:17 02/13/17 21:53 02/14/17 01:43 Prothrombin Time 16.6 SEC (11.7-14.0) Prothromb Time International Ratio 1.4 (0.8-1.1) Glucose (Fingerstick) 319 mg/dL (70-99) 290 mg/dL (70-99) 300 mg/dL (70-99) Test 02/14/17 06:10 02/14/17 06:47 02/14/17 08:30 02/14/17 09:15 White Blood Count 11.4 x10^3/uL (4.0-11.0) Red Blood Count 2.94 x10^6/uL (3.50-5.40) Hemoglobin 8.6 g/dL (12.0-15.5) Hematocrit 26.8 % (36.0-47.0) Mean Corpuscular Volume 91 fL (79-100) Mean Corpuscular Hemoglobin 29 pg (25-35) Mean Corpuscular Hemoglobin Concent 32 g/dL (31-37) Red Cell Distribution Width 15.3 % (11.5-14.5) Platelet Count 221 x10^3/uL (140-400) Sodium Level 150 mmol/L (136-145) Potassium Level 4.5 mmol/L (3.5-5.1) Chloride Level 109 mmol/L (98-107) Carbon Dioxide Level 40 mmol/L (21-32) Anion Gap 1 (6-14) Blood Urea Nitrogen 27 mg/dL (7-20) Creatinine 0.7 mg/dL (0.6-1.0) Estimated GFR (Cockcroft-Gault) 80.9 Glucose Level 293 mg/dL (70-99) Calcium Level 8.4 mg/dL (8.5-10.1) Phosphorus Level 3.2 mg/dL (2.6-4.7) Magnesium Level 2.4 mg/dL (1.8-2.4) Glucose (Fingerstick) 298 mg/dL (70-99) 304 mg/dL (70-99) O2 Saturation 93 % (92-99) Arterial Blood pH 7.47 (7.35-7.45) Arterial Blood pCO2 at Patient Temp 51 mmHg (35-46) Arterial Blood pO2 at Patient Temp 70 mmHg (65-108) Arterial Blood HCO3 37 mmol/L (21-28) Arterial Blood Base Excess 12 mmol/L (-3-3) FiO2 30 Test 02/14/17 12:36 Glucose (Fingerstick) 269 mg/dL (70-99) Microbiology 02/05/17 Blood Culture - Final, Complete NO GROWTH AFTER 5 DAYS 02/05/17 Urine Culture - Final, Complete 02/05/17 Urine Culture Result 1 (BISI) - Final, Complete Medications Current Medications Sodium Chloride 1,000 ml @ 620 mls/hr [id number] IV Last administered on 10:43; Start 02/05/17 at 09:05; Stop 02/05/17 at 12:05; Status DC Albuterol/ Ipratropium (Duoneb) 6 ml 1X ONCE NEB Last administered on 09:18; Start 02/05/17 at 09:15; Stop 02/05/17 at 09:16; Status DC Meropenem 1 gm/ Sodium Chloride 100 ml @ 200 mls/hr Q8HRS IV ; Start 02/05/17 at 14:00; Status UNV Vancomycin HCl (Vanco Per Pharmacy) 1 each PRN DAILY PRN MC SEE COMMENTS Last administered on 02/10/17 14:10; Start 02/05/17 at 11:30; Stop 02/11/17 at 08 :13; Status DC Levofloxacin/ Dextrose (Levaquin Per Pharmacy) 1 each PRN DAILY PRN MC SEE COMMENTS; Start 02/05/17 at 11:30; Stop 02/09/17 at 08:20; Status DC Vancomycin HCl 2 gm/Dextrose 500 ml @ 250 mls/hr 1X ONCE IV Last administered on 02/05/17 13:20; Start 02/05/17 at 12:00; Stop 02/05/17 at 13 :59; Status DC Meropenem (Merrem) 1 gm 1X ONCE IVP Last administered on 02/05/17 11:37; Start 02/05/17 at 12:00; Stop 02/05/17 at 19:17; Status DC Levofloxacin/ Dextrose 150 ml @ 100 mls/hr 1X ONCE IV Last administered on 11:38; Start 02/05/17 at 12:00; Stop 02/05/17 at 13:29; Status DC Methylprednisolone Sodium Succinate (SOLU-Medrol 125MG VIAL) 125 mg 1X ONCE IV Last administered on 02/05/17 12:06; Start 02/05/17 at 11:45; Stop at 11:59; Status DC Ondansetron HCl (Zofran) 4 mg PRN Q8HRS PRN IV NAUSEA/VOMITING; Start at 12:00; Stop 02/06/17 at 11:59; Status DC Sodium Chloride 1,000 ml @ 75 mls/hr [id number] IV Last administered on 16:24; Start 02/05/17 at 11:46; Stop 02/06/17 at 11:19; Status DC Acetaminophen (Tylenol) 650 mg PRN Q4HRS PRN PO FEVER Last administered on 03:34; Start 02/05/17 at 12:00; Stop 02/06/17 at 11:59; Status DC Albuterol/ Ipratropium (Duoneb) 3 ml RTQID NEB Last administered on 02/06/17 09:33; Start 02/05/17 at 12:00; Stop 02/06/17 at 11:59; Status DC Dobutamine HCl 2000 mg/Dextrose 250 ml @ 4.59 mls/hr CONT IV ; Start 02/05/17 at 12:00; Stop 02/05/17 at 13:17; Status DC Dobutamine HCl/ Dextrose 250 ml @ 18.375 mls/ hr CONT PRN IV SEE I/O RECORD; Start 02/05/17 at 13:15 Meropenem (Merrem) 1 gm Q8HRS IVP Last administered on 02/05/17 21:03; Start 02/05/17 at 21:00; Stop 02/05/17 at 21:53; Status DC Levofloxacin/ Dextrose 150 ml @ 100 mls/hr Q24H IV Last administered on 20:36; Start 02/06/17 at 12:00; Stop 02/09/17 at 08:24; Status DC Vancomycin HCl 1.75 gm/Dextrose/ Sodium Chloride 500 ml @ 250 mls/hr Q18H IV Last administered on 02/07/17 19:48; Start 02/06/17 at 07:00; Stop 02/08/17 at 13:27; Status DC Vancomycin HCl 1 each 1X ONCE MC Last administered on 02/07/17 00:30; Start 02/07/17 at 00:30; Stop 02/07/17 at 00:31; Status DC Methylprednisolone Sodium Succinate (SOLU-Medrol 40MG VIAL) 40 mg Q8HRS IV Last administered on 02/11/17 06:02; Start 02/05/17 at 16:00; Stop 02/11/17 at 13:17; Status DC Enoxaparin Sodium (Lovenox 40mg Syringe) 40 mg Q24H SQ Last administered on 16:24; Start 02/05/17 at 16:00; Stop 02/05/17 at 21:19; Status DC Aspirin (Children'S Aspirin) 81 mg DAILY PO Last administered on 02/08/17 08: 41; Start 02/06/17 at 09:00; Stop 02/12/17 at 09:29; Status DC Diltiazem HCl (Cardizem 24hr Cd) 120 mg QHS PO Last administered on 02/12/17 23:31; Start 02/05/17 at 21:00 Ferrous Sulfate (Feosol) 325 mg BID PO Last administered on 02/12/17 23:30; Start 02/05/17 at 21:00; Stop 02/13/17 at 08:13; Status DC Acetaminophen/ Hydrocodone Bitart (Lortab 7.5/325) 2 tab PRN Q6HRS PRN PO PAIN Last administered on 02/10/17 19:56; Start 02/05/17 at 17:15 Levothyroxine Sodium (Synthroid) 137 mcg DAILYAC PO Last administered on 08:51; Start 02/06/17 at 07:30 Warfarin Sodium (Coumadin) 5 mg DAILY16 PO Last administered on 02/07/17 17: 28; Start 02/05/17 at 22:00; Stop 02/08/17 at 09:53; Status DC Citalopram Hydrobromide (CeleXA) 40 mg DAILY PO Last administered on 08:51; Start 02/06/17 at 09:00 Glimepiride (Amaryl) 4 mg BIDWMEALS PO Last administered on 02/12/17 18:12; Start 02/05/17 at 17:30 Losartan Potassium (Cozaar) 25 mg DAILY PO ; Start 02/06/17 at 09:00; Stop at 11:22; Status DC Atorvastatin Calcium (Lipitor) 80 mg QHS PO Last administered on 02/12/17 23: 30; Start 02/05/17 at 21:00 Insulin Aspart (NovoLOG) 0-12 UNITS QIDACHS SQ Last administered on 02/14/17 12:38; Start 02/05/17 at 18:00 Norepinephrine Bitartrate 250 ml @ 0 mls/hr CONT PRN IV SEE I/O RECORD; Start 02/05/17 at 19:00 Albuterol/ Ipratropium (Duoneb) 3 ml STK-MED ONCE .ROUTE ; Start 02/05/17 at 19 :16; Stop 02/05/17 at 19:17; Status DC Meropenem (Merrem) 1 gm Q8HRS IVP Last administered on 02/08/17 05:33; Start 02/06/17 at 06:00; Stop 02/08/17 at 09:00; Status DC Warfarin Sodium (Coumadin Per Physician) 1 each PRN DAILY PRN MC SEE COMMENTS; Start 02/06/17 at 07:45; Status Cancel Lactobacillus Rhamnosus (Culturelle) 1 cap BID PO Last administered on 23:46; Start 02/06/17 at 09:00; Stop 02/14/17 at 12:42; Status DC Albuterol/ Ipratropium (Duoneb) 3 ml RTQID NEB Last administered on 02/13/17 07:54; Start 02/06/17 at 16:00; Stop 02/13/17 at 09:54; Status DC Alprazolam (Xanax) 0.5 mg PRN TID PRN PO ANXIETY / AGITATION Last administered on 02/12/17 23:30; Start 02/06/17 at 17:30 Metformin HCl (Glucophage) 500 mg BIDWMEALS PO Last administered on 02/12/17 18:12; Start 02/07/17 at 12:00; Stop 02/13/17 at 03:02; Status DC Polyethylene Glycol (miraLAX PACKET) 17 gm PRN DAILY PRN PO CONSTIPATION Last administered on 02/07/17 21:29; Start 02/07/17 at 20:00 Alteplase, Recombinant (Cathflo) 2 mg 1X ONCE INT CAT Last administered on 07:32; Start 02/08/17 at 08:00; Stop 02/08/17 at 08:01; Status DC Pantoprazole Sodium 80 mg/ Sodium Chloride 100 ml @ 10 mls/hr Q10H IV Last administered on 02/13/17 03:42; Start 02/08/17 at 13:30; Stop 02/13/17 at 15 :21; Status DC Vancomycin HCl 1.75 gm/Dextrose/ Sodium Chloride 500 ml @ 250 mls/hr Q18H IV Last administered on 02/11/17 02:15; Start 02/08/17 at 21:00; Stop 02/11/17 at 08:15; Status DC Digoxin (Lanoxin) 500 mcg 1X ONCE IV Last administered on 02/08/17 18:30; Start 02/08/17 at 18:15; Stop 02/08/17 at 18:26; Status DC Digoxin (Lanoxin) 250 mcg 1X ONCE IV Last administered on 02/08/17 19:56; Start 02/08/17 at 19:45; Stop 02/08/17 at 19:46; Status DC Fentanyl Citrate (Fentanyl 2ml Vial) 50 mcg PRN Q3HRS PRN IV PAIN Last administered on 02/08/17 21:09; Start 02/08/17 at 20:30 Albumin Human 500 ml @ 125 mls/hr 1X ONCE IV Last administered on 02/08/17 23:38; Start 02/08/17 at 22:00; Stop 02/09/17 at 01:59; Status DC Phytonadione 10 mg/Sodium Chloride 51 ml @ 102 mls/hr 1X ONCE IV Last administered on 02/09/17 07:24; Start 02/09/17 at 08:00; Stop 02/09/17 at 08 :29; Status DC Throat Lozenges (Chloraseptic) 1 spray PRN Q2HR PRN PO SORE THROAT Last administered on 02/09/17 13:40; Start 02/09/17 at 08:45 Digoxin (Lanoxin) 125 mcg 1X ONCE IV Last administered on 02/10/17 13:02; Start 02/10/17 at 12:15; Stop 02/10/17 at 12:16; Status DC Insulin Aspart (NovoLOG) 6 units Q6HRS SQ Last administered on 02/11/17 06:20 ; Start 02/10/17 at 15:00; Stop 02/11/17 at 11:54; Status DC Sodium Chloride (Saline Mist Nasal) 1 nara PRN Q1HR PRN NS NASAL CONGESTION; Start 02/10/17 at 17:30 Vancomycin HCl 1 each 1X ONCE MC ; Start 02/11/17 at 20:30; Stop 02/11/17 at 20:31; Status Cancel Insulin Aspart (NovoLOG) 10 units Q6HRS SQ Last administered on 02/13/17 11: 26; Start 02/11/17 at 12:00; Stop 02/13/17 at 14:10; Status DC Methylprednisolone Sodium Succinate (SOLU-Medrol 40MG VIAL) 40 mg DAILY IV Last administered on 02/13/17 08:13; Start 02/12/17 at 09:00; Stop 02/13/17 at 09:54; Status DC Sodium Chloride 1,000 ml @ 85 mls/hr [id number] IV Last administered on 14:21; Start 02/11/17 at 14:00; Stop 02/12/17 at 01:45; Status DC Artificial Tears (Artificial Tears) 1 drop PRN Q15MIN PRN OU DRY EYE; Start at 19:15 Phytonadione (Vitamin K Ampule) 5 mg 1X ONCE SQ Last administered on 11:32; Start 02/12/17 at 09:45; Stop 02/12/17 at 09:46; Status DC Info 1 each PRN DAILY PRN MC SEE COMMENTS Last administered on 02/14/17 12:35 ; Start 02/12/17 at 09:45 Sodium Chloride 60 meq/Potassium Chloride 25 meq/ Potassium Phosphate 13.6 mmol/ Magnesium Sulfate 5 meq/ Calcium Gluconate 10 meq/ Multivitamins 10 ml/Chromium / Copper/Manganese/ Seleni/Zn 1 ml/ Potassium Acetate 25 meq/Total Parenteral Nutrition/Amino Acids/Dextrose/ Fat Emuls... 1,512 ml @ 63 mls/hr TPN CONT IV Last administered on 02/12/17 23:32; Start 02/12/17 at 22:00; Stop at 21:59; Status DC Digoxin (Lanoxin) 250 mcg DAILY IV Last administered on 02/14/17 09:20; Start 02/12/17 at 14:30 Hydrocortisone Sodium Succinate (Solu-CORTEF) 125 mg 1X ONCE IV Last administered on 02/12/17 23:20; Start 02/12/17 at 16:15; Stop 02/12/17 at 16 :16; Status DC Diphenhydramine HCl (Benadryl) 50 mg 1X ONCE IVP Last administered on 23:21; Start 02/12/17 at 16:15; Stop 02/12/17 at 16:16; Status DC Famotidine (Pepcid Vial) 40 mg 1X ONCE IVP Last administered on 02/12/17 23: 21; Start 02/12/17 at 16:15; Stop 02/12/17 at 16:16; Status DC Diphenhydramine HCl (Benadryl) 25 mg 1X ONCE IVP Last administered on 23:47; Start 02/12/17 at 18:15; Stop 02/12/17 at 18:16; Status DC Iohexol (Omnipaque 300 Mg/ml) 90 ml 1X ONCE IV Last administered on 03:13; Start 02/13/17 at 03:30; Stop 02/13/17 at 03:31; Status DC Metformin HCl (Glucophage) 500 mg BIDWMEALS PO ; Start 02/15/17 at 08:00 Ferrous Sulfate 300 mg BID PO ; Start 02/13/17 at 09:00 Albuterol/ Ipratropium (Duoneb) 3 ml Q4HRS NEB Last administered on 02/14/17 12:24; Start 02/13/17 at 12:00 Methylprednisolone Sodium Succinate (SOLU-Medrol 40MG VIAL) 60 mg Q8HRS IV Last administered on 02/14/17 06:07; Start 02/13/17 at 14:00 Potassium Chloride 25 meq/ Potassium Phosphate 13.6 mmol/Magnesium Sulfate 2.5 meq/ Calcium Gluconate 10 meq/ Multivitamins 10 ml/Chromium/ Copper/Manganese/ Seleni/Zn 1 ml/ Potassium Acetate 25 meq/Total Parenteral Nutrition/Amino Acids/ Dextrose/ Fat Emulsion Intravenous 1,512 ml @ 63 mls/hr TPN CONT IV Last administered on 02/13/17 22:12; Start 02/13/17 at 22:00; Stop 02/14/17 at 21 :59 Furosemide (Lasix) 40 mg 1X ONCE IVP Last administered on 02/13/17 13:41; Start 02/13/17 at 13:00; Stop 02/13/17 at 13:01; Status DC Lorazepam (Ativan) 0.5 mg PRN Q4HRS PRN IV ANXIETY / AGITATION Last administered on 02/13/17 21:59; Start 02/13/17 at 14:15 Levothyroxine Sodium 75 mcg/ Sodium Chloride 5 ml @ 75 mls/hr DAILY IVP Last administered on 02/14/17 09:16; Start 02/13/17 at 15:00 Insulin Aspart (NovoLOG) 15 units Q6HRS SQ Last administered on 02/14/17 12: 39; Start 02/13/17 at 18:00 Pantoprazole Sodium (PROTONIX VIAL for IV PUSH) 40 mg BIDAC IVP Last administered on 02/14/17 09:20; Start 02/13/17 at 16:30 Potassium Chloride 40 meq/ Potassium Acetate 10 meq/Potassium Phosphate 13.6 mmol/Magnesium Sulfate 2.5 meq/ Calcium Gluconate 10 meq/ Multivitamins 10 ml/ Chromium/ Copper/Manganese/ Seleni/Zn 1 ml/ Total Parenteral Nutrition/Amino Acids/Dextrose/ Fat Emulsion Intravenous 1,512 ml @ 63 mls/hr TPN CONT IV ; Start 02/14/17 at 22:00; Stop 02/15/17 at 21:59 Active Scripts Active Reported Ferrous Sulfate 325 Mg Tablet 1 Tab PO BID LAST DOSE GIVEN: DATE:01/08/17 TIME:9:00 a.m. Warfarin Sodium 5 Mg Tablet 1 Tab PO DAILY 30 Days LAST DOSE GIVEN: DATE:01/08/17 TIME:2:00 p.m Levothyroxine Sodium 137 Mcg Tablet 137 Mcg PO DAILYAC LAST DOSE GIVEN: DATE:01/08/17 TIME:7:30 a.m. Furosemide 40 Mg Tablet 40 Mg PO DAILY LAST DOSE GIVEN: DATE:01/07/17 TIME:9:00 a.m. Aspirin 81 Mg Tab.chew 1 Tab PO DAILY LAST DOSE GIVEN: DATE:01/08/17 TIME:9:00 a.m. Hydrocodone-Apap 7.5-325 (Hydrocodone Bit/Acetaminophen) 1 Each Tablet 1-2 Tab PO PRN Q6HRS PRN Took at 12:30 today may take anytime as needed for pain every 4 hours Amaryl (Glimepiride) 4 Mg Tablet 1 Tab PO BID LAST DOSE GIVEN: DATE:01/08/17 TIME:9:00 a.m. Potassium Chloride 20 Meq Tab.er.prt 1 Tab PO WEEKLY Meds not given this hospital admission. May resume home medications as approved by Physician. TIME: 8:30 a.m. NEXT DOSE DUE: DATE: 12-28-15 TIME: 8:30 a.m. Metolazone 5 Mg Tablet 5 Mg PO WEEKLY Meds not given this hospital admission. May resume home medications as approved by Physician. TIME: 8:30 a.m. NEXT DOSE DUE: DATE: 12-28-15 TIME: 8:30 a.m. Lexapro (Escitalopram Oxalate) 10 Mg Tablet 20 Mg PO DAILY LAST DOSE GIVEN: DATE:01/08/17 TIME:9:00 a.m. NEXT DOSE DUE: DATE: 12-28-15 TIME: 8:30 a.m. Cardizem Cd (Diltiazem Hcl) 240 Mg Cap.er.24h 120 Mg PO HS LAST DOSE GIVEN: DATE:01/07/17 TIME:9:00 p.m. NEXT DOSE DUE: DATE: 12-27-15 TIME: 9:00 p.m. Losartan Potassium 100 Mg Tablet 25 Mg PO DAILY LAST DOSE GIVEN: DATE:01/07/17 TIME:9:00 a.m. Crestor (Rosuvastatin Calcium) 40 Mg Tablet 40 Mg PO QHS LAST DOSE GIVEN: DATE:01/07/17 TIME:9:00 p.m. NEXT DOSE DUE: DATE: 12-27-15 TIME: 9:00 p.m. Vitals/I & O Vital Sign - Last 24 Hours 02/13/17 02/13/17 02/13/17 02/13/17 13:38 14:00 15:00 16:00 Pulse 84 77 Resp 20 19 B/P (MAP) 140/66 (90) 147/59 (88) Pulse Ox 94 94 97 O2 Delivery BiPAP/CPAP BiPAP/CPAP BiPAP/CPAP Bi-pap 02/13/17 02/13/17 02/13/17 02/13/17 16:00 16:35 17:00 18:00 Temp 98.0 98.0 Pulse 92 93 96 Resp 21 23 18 B/P (MAP) 155/65 (95) 142/71 (94) 140/72 (94) Pulse Ox 96 95 96 94 O2 Delivery BiPAP/CPAP BiPAP/CPAP BiPAP/CPAP BiPAP/CPAP 02/13/17 02/13/17 02/13/17 02/13/17 18:04 19:00 19:26 20:00 Temp 97.9 97.9 Pulse 87 Resp 18 B/P (MAP) 150/72 (98) Pulse Ox 96 96 96 O2 Delivery BiPAP/CPAP BiPAP/CPAP BiPAP/CPAP Bi-pap 02/13/17 02/13/17 02/13/17 02/13/17 20:00 21:00 22:00 23:00 Pulse 96 96 96 92 Resp 21 24 B/P (MAP) 144/64 (90) 131/72 (91) 153/71 (98) 147/77 (100) Pulse Ox 96 97 97 97 O2 Delivery BiPAP/CPAP BiPAP/CPAP Nasal Cannula Nasal Cannula O2 Flow Rate 3.0 3.0 02/13/17 02/14/17 02/14/17 02/14/17 23:35 00:00 00:00 01:00 Temp 98.5 98.5 Pulse 102 96 Resp 21 22 B/P (MAP) 153/85 (107) 155/92 (113) Pulse Ox 98 96 97 O2 Delivery Nasal Cannula Bi-pap Nasal Cannula Nasal Cannula O2 Flow Rate 6.0 3.0 3.0 02/14/17 02/14/17 02/14/17 02/14/17 02:00 03:00 03:41 04:00 Pulse 98 104 Resp 28 19 B/P (MAP) 159/88 (111) 148/65 (92) Pulse Ox 97 97 97 O2 Delivery Nasal Cannula Nasal Cannula Nasal Cannula Bi-pap O2 Flow Rate 3.0 3.0 5.0 02/14/17 02/14/17 02/14/17 02/14/17 04:00 05:00 05:38 06:00 Temp 98.7 98.7 Pulse 92 92 104 Resp 19 B/P (MAP) 136/70 (92) 124/58 (80) 148/65 (92) Pulse Ox 96 97 95 97 O2 Delivery BiPAP/CPAP BiPAP/CPAP BiPAP/CPAP 02/14/17 02/14/17 02/14/17 02/14/17 07:00 08:00 08:00 08:00 Temp 98.2 98.2 Pulse 86 94 Resp 19 21 B/P (MAP) 123/52 (75) 133/61 (85) Pulse Ox 98 97 O2 Delivery Nasal Cannula Nasal Cannula Nasal Cannula O2 Flow Rate 3.0 3.0 3.0 3.0 02/14/17 02/14/17 02/14/17 02/14/17 08:32 09:00 09:20 10:00 Pulse 96 90 105 Resp 21 B/P (MAP) 142/62 (88) 142/60 146/93 (110) Pulse Ox 96 97 96 O2 Delivery BiPAP/CPAP Nasal Cannula Nasal Cannula O2 Flow Rate 3.0 3.0 02/14/17 02/14/17 02/14/17 02/14/17 11:00 12:00 12:00 12:00 Temp 97.6 97.6 Pulse 97 95 Resp 21 20 B/P (MAP) 138/62 (87) 134/72 (92) Pulse Ox 96 98 O2 Delivery Nasal Cannula Nasal Cannula Nasal Cannula O2 Flow Rate 3.0 3.0 3.0 3.0 02/14/17 12:26 Pulse Ox 96 O2 Delivery Nasal Cannula O2 Flow Rate 3.0 Intake and Output 02/13/17 02/13/17 02/14/17 15:00 23:00 07:00 Intake Total 764.01 ml 0 ml Output Total 1910 ml 3200 ml 1450 ml Balance -1910 ml -2435.99 ml -1450 ml Problem List Problems Medical Problems: (1) Acute on chronic congestive heart failure Status: Acute (2) COPD (chronic obstructive pulmonary disease) Status: Acute (3) Healthcare-associated pneumonia Status: Acute (4) Morbid obesity Status: Acute (5) Sepsis Status: Acute (6) Severe protein-calorie malnutrition Status: Acute (7) Urinary tract infection Status: Acute Assessment 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
--- NOTE | 2017-02-14 14:12 | PDOC ---
PROGRESS NOTES Subjective Subjective Patient clinically improving. GI advance diet today. Hemoglobin stable for 2 days now. INR 1.4 Objective Objective Vital Signs Date Time Temp Pulse Resp B/P (MAP) Pulse Ox O2 Delivery O2 Flow Rate FiO2 02/14/17 12:26 96 Nasal Cannula 3.0 02/14/17 12:00 97.6 95 20 134/72 (92) 97.6 Intake and Output 02/14/17 07:00 Intake Total 764.01 ml Output Total 6560 ml Balance -5795.99 ml Intake Oral 0 ml IV Total 764.01 ml Output Urine Total 6560 ml Physical Exam Physical Exam Abdomen: Normal bowel sounds Heart: Other (Irreg) Extremities: Other (2+ edema slightly improved) General: Alert Lungs: Other (Coarse) Assessment Assessment Problems Medical Problems: (1) Acute on chronic congestive heart failure Status: Acute (2) COPD (chronic obstructive pulmonary disease) Status: Acute (3) Healthcare-associated pneumonia Status: Acute (4) Morbid obesity Status: Acute (5) Sepsis Status: Acute (6) Severe protein-calorie malnutrition Status: Acute (7) Urinary tract infection Status: Acute 1. Acute on chronic respiratory failure. 2. Anemia due to GI bleed 3. Healthcare acquired pneumonia. 4. Sepsis syndrome 5. Chronic obstructive pulmonary disease with exacerbation. 6. Atrial fibrillation with rapid ventricular response. 7. Obstructive sleep apnea. 8. Aortic stenosis. 9. Morbid obesity. 10.Hypertension. 11.Type 2 diabetes. 12.Hypothyroidism. 13.Generalized anxiety disorder. 14.Severe protein-calorie malnutrition. 15.Urinary tract infection. 16. History of diastolic congestive heart failure possibly due to cor pulmonale 17.Status post recent left total knee revision 18.coagulopathy on coumadin 19.Blood culture + coag neg staph 1/6bottles, possible contaminant- see above 20.Pulmonary HTN 21 Chronic diastolic CHF Plan Plan of Care Follow CBC Check INR Start PO with caution continue TPN for now. D/C in AM if taking po continue Card,ID and Pulm Care Comment Review of Relevant I have reviewed the following items donald (where applicable) has been applied. Labs Laboratory Tests Test 02/12/17 18:14 02/12/17 23:51 02/13/17 06:15 02/13/17 06:21 Glucose (Fingerstick) 199 mg/dL (70-99) 185 mg/dL (70-99) 242 mg/dL (70-99) White Blood Count 10.8 x10^3/uL (4.0-11.0) Red Blood Count 2.81 x10^6/uL (3.50-5.40) Hemoglobin 8.4 g/dL (12.0-15.5) Hematocrit 25.8 % (36.0-47.0) Mean Corpuscular Volume 92 fL (79-100) Mean Corpuscular Hemoglobin 30 pg (25-35) Mean Corpuscular Hemoglobin Concent 33 g/dL (31-37) Red Cell Distribution Width 15.8 % (11.5-14.5) Platelet Count 202 x10^3/uL (140-400) Sodium Level 151 mmol/L (136-145) Potassium Level 4.8 mmol/L (3.5-5.1) Chloride Level 111 mmol/L (98-107) Carbon Dioxide Level 39 mmol/L (21-32) Anion Gap 1 (6-14) Blood Urea Nitrogen 29 mg/dL (7-20) Creatinine 0.7 mg/dL (0.6-1.0) Estimated GFR (Cockcroft-Gault) 80.9 BUN/Creatinine Ratio 41 (6-20) Glucose Level 261 mg/dL (70-99) Calcium Level 8.2 mg/dL (8.5-10.1) Phosphorus Level 3.7 mg/dL (2.6-4.7) Magnesium Level 2.5 mg/dL (1.8-2.4) Total Bilirubin 0.8 mg/dL (0.2-1.0) Aspartate Amino Transf (AST/SGOT) 22 U/L (15-37) Alanine Aminotransferase (ALT/SGPT) 24 U/L (14-59) Alkaline Phosphatase 53 U/L (46-116) Total Protein 4.9 g/dL (6.4-8.2) Albumin 2.4 g/dL (3.4-5.0) Albumin/Globulin Ratio 1.0 (1.0-1.7) Triglycerides Level 113 mg/dL (0-150) Test 02/13/17 11:20 02/13/17 15:18 02/13/17 17:17 02/13/17 21:53 Glucose (Fingerstick) 315 mg/dL (70-99) 319 mg/dL (70-99) 290 mg/dL (70-99) Prothrombin Time 16.6 SEC (11.7-14.0) Prothromb Time International Ratio 1.4 (0.8-1.1) Test 02/14/17 01:43 02/14/17 06:10 02/14/17 06:47 02/14/17 08:30 Glucose (Fingerstick) 300 mg/dL (70-99) 298 mg/dL (70-99) White Blood Count 11.4 x10^3/uL (4.0-11.0) Red Blood Count 2.94 x10^6/uL (3.50-5.40) Hemoglobin 8.6 g/dL (12.0-15.5) Hematocrit 26.8 % (36.0-47.0) Mean Corpuscular Volume 91 fL (79-100) Mean Corpuscular Hemoglobin 29 pg (25-35) Mean Corpuscular Hemoglobin Concent 32 g/dL (31-37) Red Cell Distribution Width 15.3 % (11.5-14.5) Platelet Count 221 x10^3/uL (140-400) Sodium Level 150 mmol/L (136-145) Potassium Level 4.5 mmol/L (3.5-5.1) Chloride Level 109 mmol/L (98-107) Carbon Dioxide Level 40 mmol/L (21-32) Anion Gap 1 (6-14) Blood Urea Nitrogen 27 mg/dL (7-20) Creatinine 0.7 mg/dL (0.6-1.0) Estimated GFR (Cockcroft-Gault) 80.9 Glucose Level 293 mg/dL (70-99) Calcium Level 8.4 mg/dL (8.5-10.1) Phosphorus Level 3.2 mg/dL (2.6-4.7) Magnesium Level 2.4 mg/dL (1.8-2.4) O2 Saturation 93 % (92-99) Arterial Blood pH 7.47 (7.35-7.45) Arterial Blood pCO2 at Patient Temp 51 mmHg (35-46) Arterial Blood pO2 at Patient Temp 70 mmHg (65-108) Arterial Blood HCO3 37 mmol/L (21-28) Arterial Blood Base Excess 12 mmol/L (-3-3) FiO2 30 Test 02/14/17 09:15 02/14/17 12:36 Glucose (Fingerstick) 304 mg/dL (70-99) 269 mg/dL (70-99) Laboratory Tests Test 02/13/17 15:18 02/13/17 17:17 02/13/17 21:53 02/14/17 01:43 Prothrombin Time 16.6 SEC (11.7-14.0) Prothromb Time International Ratio 1.4 (0.8-1.1) Glucose (Fingerstick) 319 mg/dL (70-99) 290 mg/dL (70-99) 300 mg/dL (70-99) Test 02/14/17 06:10 02/14/17 06:47 02/14/17 08:30 02/14/17 09:15 White Blood Count 11.4 x10^3/uL (4.0-11.0) Red Blood Count 2.94 x10^6/uL (3.50-5.40) Hemoglobin 8.6 g/dL (12.0-15.5) Hematocrit 26.8 % (36.0-47.0) Mean Corpuscular Volume 91 fL (79-100) Mean Corpuscular Hemoglobin 29 pg (25-35) Mean Corpuscular Hemoglobin Concent 32 g/dL (31-37) Red Cell Distribution Width 15.3 % (11.5-14.5) Platelet Count 221 x10^3/uL (140-400) Sodium Level 150 mmol/L (136-145) Potassium Level 4.5 mmol/L (3.5-5.1) Chloride Level 109 mmol/L (98-107) Carbon Dioxide Level 40 mmol/L (21-32) Anion Gap 1 (6-14) Blood Urea Nitrogen 27 mg/dL (7-20) Creatinine 0.7 mg/dL (0.6-1.0) Estimated GFR (Cockcroft-Gault) 80.9 Glucose Level 293 mg/dL (70-99) Calcium Level 8.4 mg/dL (8.5-10.1) Phosphorus Level 3.2 mg/dL (2.6-4.7) Magnesium Level 2.4 mg/dL (1.8-2.4) Glucose (Fingerstick) 298 mg/dL (70-99) 304 mg/dL (70-99) O2 Saturation 93 % (92-99) Arterial Blood pH 7.47 (7.35-7.45) Arterial Blood pCO2 at Patient Temp 51 mmHg (35-46) Arterial Blood pO2 at Patient Temp 70 mmHg (65-108) Arterial Blood HCO3 37 mmol/L (21-28) Arterial Blood Base Excess 12 mmol/L (-3-3) FiO2 30 Test 02/14/17 12:36 Glucose (Fingerstick) 269 mg/dL (70-99) Microbiology 02/05/17 Blood Culture - Final, Complete NO GROWTH AFTER 5 DAYS 02/05/17 Urine Culture - Final, Complete 02/05/17 Urine Culture Result 1 (BISI) - Final, Complete Medications Current Medications Sodium Chloride 1,000 ml @ 620 mls/hr [id number] IV Last administered on 10:43; Start 02/05/17 at 09:05; Stop 02/05/17 at 12:05; Status DC Albuterol/ Ipratropium (Duoneb) 6 ml 1X ONCE NEB Last administered on 09:18; Start 02/05/17 at 09:15; Stop 02/05/17 at 09:16; Status DC Meropenem 1 gm/ Sodium Chloride 100 ml @ 200 mls/hr Q8HRS IV ; Start 02/05/17 at 14:00; Status UNV Vancomycin HCl (Vanco Per Pharmacy) 1 each PRN DAILY PRN MC SEE COMMENTS Last administered on 02/10/17 14:10; Start 02/05/17 at 11:30; Stop 02/11/17 at 08 :13; Status DC Levofloxacin/ Dextrose (Levaquin Per Pharmacy) 1 each PRN DAILY PRN MC SEE COMMENTS; Start 02/05/17 at 11:30; Stop 02/09/17 at 08:20; Status DC Vancomycin HCl 2 gm/Dextrose 500 ml @ 250 mls/hr 1X ONCE IV Last administered on 02/05/17 13:20; Start 02/05/17 at 12:00; Stop 02/05/17 at 13 :59; Status DC Meropenem (Merrem) 1 gm 1X ONCE IVP Last administered on 02/05/17 11:37; Start 02/05/17 at 12:00; Stop 02/05/17 at 19:17; Status DC Levofloxacin/ Dextrose 150 ml @ 100 mls/hr 1X ONCE IV Last administered on 11:38; Start 02/05/17 at 12:00; Stop 02/05/17 at 13:29; Status DC Methylprednisolone Sodium Succinate (SOLU-Medrol 125MG VIAL) 125 mg 1X ONCE IV Last administered on 02/05/17 12:06; Start 02/05/17 at 11:45; Stop at 11:59; Status DC Ondansetron HCl (Zofran) 4 mg PRN Q8HRS PRN IV NAUSEA/VOMITING; Start at 12:00; Stop 02/06/17 at 11:59; Status DC Sodium Chloride 1,000 ml @ 75 mls/hr [id number] IV Last administered on 16:24; Start 02/05/17 at 11:46; Stop 02/06/17 at 11:19; Status DC Acetaminophen (Tylenol) 650 mg PRN Q4HRS PRN PO FEVER Last administered on 03:34; Start 02/05/17 at 12:00; Stop 02/06/17 at 11:59; Status DC Albuterol/ Ipratropium (Duoneb) 3 ml RTQID NEB Last administered on 02/06/17 09:33; Start 02/05/17 at 12:00; Stop 02/06/17 at 11:59; Status DC Dobutamine HCl 2000 mg/Dextrose 250 ml @ 4.59 mls/hr CONT IV ; Start 02/05/17 at 12:00; Stop 02/05/17 at 13:17; Status DC Dobutamine HCl/ Dextrose 250 ml @ 18.375 mls/ hr CONT PRN IV SEE I/O RECORD; Start 02/05/17 at 13:15 Meropenem (Merrem) 1 gm Q8HRS IVP Last administered on 02/05/17 21:03; Start 02/05/17 at 21:00; Stop 02/05/17 at 21:53; Status DC Levofloxacin/ Dextrose 150 ml @ 100 mls/hr Q24H IV Last administered on 20:36; Start 02/06/17 at 12:00; Stop 02/09/17 at 08:24; Status DC Vancomycin HCl 1.75 gm/Dextrose/ Sodium Chloride 500 ml @ 250 mls/hr Q18H IV Last administered on 02/07/17 19:48; Start 02/06/17 at 07:00; Stop 02/08/17 at 13:27; Status DC Vancomycin HCl 1 each 1X ONCE MC Last administered on 02/07/17 00:30; Start 02/07/17 at 00:30; Stop 02/07/17 at 00:31; Status DC Methylprednisolone Sodium Succinate (SOLU-Medrol 40MG VIAL) 40 mg Q8HRS IV Last administered on 02/11/17 06:02; Start 02/05/17 at 16:00; Stop 02/11/17 at 13:17; Status DC Enoxaparin Sodium (Lovenox 40mg Syringe) 40 mg Q24H SQ Last administered on 16:24; Start 02/05/17 at 16:00; Stop 02/05/17 at 21:19; Status DC Aspirin (Children'S Aspirin) 81 mg DAILY PO Last administered on 02/08/17 08: 41; Start 02/06/17 at 09:00; Stop 02/12/17 at 09:29; Status DC Diltiazem HCl (Cardizem 24hr ) 120 mg QHS PO Last administered on 02/12/17 23:31; Start 02/05/17 at 21:00 Ferrous Sulfate (Feosol) 325 mg BID PO Last administered on 02/12/17 23:30; Start 02/05/17 at 21:00; Stop 02/13/17 at 08:13; Status DC Acetaminophen/ Hydrocodone Bitart (Lortab 7.5/325) 2 tab PRN Q6HRS PRN PO PAIN Last administered on 02/10/17 19:56; Start 02/05/17 at 17:15 Levothyroxine Sodium (Synthroid) 137 mcg DAILYAC PO Last administered on 08:51; Start 02/06/17 at 07:30 Warfarin Sodium (Coumadin) 5 mg DAILY16 PO Last administered on 02/07/17 17: 28; Start 02/05/17 at 22:00; Stop 02/08/17 at 09:53; Status DC Citalopram Hydrobromide (CeleXA) 40 mg DAILY PO Last administered on 08:51; Start 02/06/17 at 09:00 Glimepiride (Amaryl) 4 mg BIDWMEALS PO Last administered on 02/12/17 18:12; Start 02/05/17 at 17:30 Losartan Potassium (Cozaar) 25 mg DAILY PO ; Start 02/06/17 at 09:00; Stop at 11:22; Status DC Atorvastatin Calcium (Lipitor) 80 mg QHS PO Last administered on 02/12/17 23: 30; Start 02/05/17 at 21:00 Insulin Aspart (NovoLOG) 0-12 UNITS QIDACHS SQ Last administered on 02/14/17 12:38; Start 02/05/17 at 18:00 Norepinephrine Bitartrate 250 ml @ 0 mls/hr CONT PRN IV SEE I/O RECORD; Start 02/05/17 at 19:00 Albuterol/ Ipratropium (Duoneb) 3 ml STK-MED ONCE .ROUTE ; Start 02/05/17 at 19 :16; Stop 02/05/17 at 19:17; Status DC Meropenem (Merrem) 1 gm Q8HRS IVP Last administered on 02/08/17 05:33; Start 02/06/17 at 06:00; Stop 02/08/17 at 09:00; Status DC Warfarin Sodium (Coumadin Per Physician) 1 each PRN DAILY PRN MC SEE COMMENTS; Start 02/06/17 at 07:45; Status Cancel Lactobacillus Rhamnosus (Culturelle) 1 cap BID PO Last administered on 23:46; Start 02/06/17 at 09:00; Stop 02/14/17 at 12:42; Status DC Albuterol/ Ipratropium (Duoneb) 3 ml RTQID NEB Last administered on 02/13/17 07:54; Start 02/06/17 at 16:00; Stop 02/13/17 at 09:54; Status DC Alprazolam (Xanax) 0.5 mg PRN TID PRN PO ANXIETY / AGITATION Last administered on 02/12/17 23:30; Start 02/06/17 at 17:30 Metformin HCl (Glucophage) 500 mg BIDWMEALS PO Last administered on 02/12/17 18:12; Start 02/07/17 at 12:00; Stop 02/13/17 at 03:02; Status DC Polyethylene Glycol (miraLAX PACKET) 17 gm PRN DAILY PRN PO CONSTIPATION Last administered on 02/07/17 21:29; Start 02/07/17 at 20:00 Alteplase, Recombinant (Cathflo) 2 mg 1X ONCE INT CAT Last administered on 07:32; Start 02/08/17 at 08:00; Stop 02/08/17 at 08:01; Status DC Pantoprazole Sodium 80 mg/ Sodium Chloride 100 ml @ 10 mls/hr Q10H IV Last administered on 02/13/17 03:42; Start 02/08/17 at 13:30; Stop 02/13/17 at 15 :21; Status DC Vancomycin HCl 1.75 gm/Dextrose/ Sodium Chloride 500 ml @ 250 mls/hr Q18H IV Last administered on 02/11/17 02:15; Start 02/08/17 at 21:00; Stop 02/11/17 at 08:15; Status DC Digoxin (Lanoxin) 500 mcg 1X ONCE IV Last administered on 02/08/17 18:30; Start 02/08/17 at 18:15; Stop 02/08/17 at 18:26; Status DC Digoxin (Lanoxin) 250 mcg 1X ONCE IV Last administered on 02/08/17 19:56; Start 02/08/17 at 19:45; Stop 02/08/17 at 19:46; Status DC Fentanyl Citrate (Fentanyl 2ml Vial) 50 mcg PRN Q3HRS PRN IV PAIN Last administered on 02/08/17 21:09; Start 02/08/17 at 20:30 Albumin Human 500 ml @ 125 mls/hr 1X ONCE IV Last administered on 02/08/17 23:38; Start 02/08/17 at 22:00; Stop 02/09/17 at 01:59; Status DC Phytonadione 10 mg/Sodium Chloride 51 ml @ 102 mls/hr 1X ONCE IV Last administered on 02/09/17 07:24; Start 02/09/17 at 08:00; Stop 02/09/17 at 08 :29; Status DC Throat Lozenges (Chloraseptic) 1 spray PRN Q2HR PRN PO SORE THROAT Last administered on 02/09/17 13:40; Start 02/09/17 at 08:45 Digoxin (Lanoxin) 125 mcg 1X ONCE IV Last administered on 02/10/17 13:02; Start 02/10/17 at 12:15; Stop 02/10/17 at 12:16; Status DC Insulin Aspart (NovoLOG) 6 units Q6HRS SQ Last administered on 02/11/17 06:20 ; Start 02/10/17 at 15:00; Stop 02/11/17 at 11:54; Status DC Sodium Chloride (Saline Mist Nasal) 1 nara PRN Q1HR PRN NS NASAL CONGESTION; Start 02/10/17 at 17:30 Vancomycin HCl 1 each 1X ONCE MC ; Start 02/11/17 at 20:30; Stop 02/11/17 at 20:31; Status Cancel Insulin Aspart (NovoLOG) 10 units Q6HRS SQ Last administered on 02/13/17 11: 26; Start 02/11/17 at 12:00; Stop 02/13/17 at 14:10; Status DC Methylprednisolone Sodium Succinate (SOLU-Medrol 40MG VIAL) 40 mg DAILY IV Last administered on 02/13/17 08:13; Start 02/12/17 at 09:00; Stop 02/13/17 at 09:54; Status DC Sodium Chloride 1,000 ml @ 85 mls/hr [id number] IV Last administered on 14:21; Start 02/11/17 at 14:00; Stop 02/12/17 at 01:45; Status DC Artificial Tears (Artificial Tears) 1 drop PRN Q15MIN PRN OU DRY EYE; Start at 19:15 Phytonadione (Vitamin K Ampule) 5 mg 1X ONCE SQ Last administered on 11:32; Start 02/12/17 at 09:45; Stop 02/12/17 at 09:46; Status DC Info 1 each PRN DAILY PRN MC SEE COMMENTS Last administered on 02/14/17 12:35 ; Start 02/12/17 at 09:45 Sodium Chloride 60 meq/Potassium Chloride 25 meq/ Potassium Phosphate 13.6 mmol/ Magnesium Sulfate 5 meq/ Calcium Gluconate 10 meq/ Multivitamins 10 ml/Chromium / Copper/Manganese/ Seleni/Zn 1 ml/ Potassium Acetate 25 meq/Total Parenteral Nutrition/Amino Acids/Dextrose/ Fat Emuls... 1,512 ml @ 63 mls/hr TPN CONT IV Last administered on 02/12/17 23:32; Start 02/12/17 at 22:00; Stop at 21:59; Status DC Digoxin (Lanoxin) 250 mcg DAILY IV Last administered on 02/14/17 09:20; Start 02/12/17 at 14:30 Hydrocortisone Sodium Succinate (Solu-CORTEF) 125 mg 1X ONCE IV Last administered on 02/12/17 23:20; Start 02/12/17 at 16:15; Stop 02/12/17 at 16 :16; Status DC Diphenhydramine HCl (Benadryl) 50 mg 1X ONCE IVP Last administered on 23:21; Start 02/12/17 at 16:15; Stop 02/12/17 at 16:16; Status DC Famotidine (Pepcid Vial) 40 mg 1X ONCE IVP Last administered on 02/12/17 23: 21; Start 02/12/17 at 16:15; Stop 02/12/17 at 16:16; Status DC Diphenhydramine HCl (Benadryl) 25 mg 1X ONCE IVP Last administered on 23:47; Start 02/12/17 at 18:15; Stop 02/12/17 at 18:16; Status DC Iohexol (Omnipaque 300 Mg/ml) 90 ml 1X ONCE IV Last administered on 03:13; Start 02/13/17 at 03:30; Stop 02/13/17 at 03:31; Status DC Metformin HCl (Glucophage) 500 mg BIDWMEALS PO ; Start 02/15/17 at 08:00 Ferrous Sulfate 300 mg BID PO ; Start 02/13/17 at 09:00 Albuterol/ Ipratropium (Duoneb) 3 ml Q4HRS NEB Last administered on 02/14/17 12:24; Start 02/13/17 at 12:00 Methylprednisolone Sodium Succinate (SOLU-Medrol 40MG VIAL) 60 mg Q8HRS IV Last administered on 02/14/17 06:07; Start 02/13/17 at 14:00 Potassium Chloride 25 meq/ Potassium Phosphate 13.6 mmol/Magnesium Sulfate 2.5 meq/ Calcium Gluconate 10 meq/ Multivitamins 10 ml/Chromium/ Copper/Manganese/ Seleni/Zn 1 ml/ Potassium Acetate 25 meq/Total Parenteral Nutrition/Amino Acids/ Dextrose/ Fat Emulsion Intravenous 1,512 ml @ 63 mls/hr TPN CONT IV Last administered on 02/13/17 22:12; Start 02/13/17 at 22:00; Stop 02/14/17 at 21 :59 Furosemide (Lasix) 40 mg 1X ONCE IVP Last administered on 02/13/17 13:41; Start 02/13/17 at 13:00; Stop 02/13/17 at 13:01; Status DC Lorazepam (Ativan) 0.5 mg PRN Q4HRS PRN IV ANXIETY / AGITATION Last administered on 02/13/17 21:59; Start 02/13/17 at 14:15 Levothyroxine Sodium 75 mcg/ Sodium Chloride 5 ml @ 75 mls/hr DAILY IVP Last administered on 02/14/17 09:16; Start 02/13/17 at 15:00 Insulin Aspart (NovoLOG) 15 units Q6HRS SQ Last administered on 02/14/17 12: 39; Start 02/13/17 at 18:00 Pantoprazole Sodium (PROTONIX VIAL for IV PUSH) 40 mg BIDAC IVP Last administered on 02/14/17 09:20; Start 02/13/17 at 16:30 Potassium Chloride 40 meq/ Potassium Acetate 10 meq/Potassium Phosphate 13.6 mmol/Magnesium Sulfate 2.5 meq/ Calcium Gluconate 10 meq/ Multivitamins 10 ml/ Chromium/ Copper/Manganese/ Seleni/Zn 1 ml/ Total Parenteral Nutrition/Amino Acids/Dextrose/ Fat Emulsion Intravenous 1,512 ml @ 63 mls/hr TPN CONT IV ; Start 02/14/17 at 22:00; Stop 02/15/17 at 21:59 Active Scripts Active Reported Ferrous Sulfate 325 Mg Tablet 1 Tab PO BID LAST DOSE GIVEN: DATE:01/08/17 TIME:9:00 a.m. Warfarin Sodium 5 Mg Tablet 1 Tab PO DAILY 30 Days LAST DOSE GIVEN: DATE:01/08/17 TIME:2:00 p.m Levothyroxine Sodium 137 Mcg Tablet 137 Mcg PO DAILYAC LAST DOSE GIVEN: DATE:01/08/17 TIME:7:30 a.m. Furosemide 40 Mg Tablet 40 Mg PO DAILY LAST DOSE GIVEN: DATE:01/07/17 TIME:9:00 a.m. Aspirin 81 Mg Tab.chew 1 Tab PO DAILY LAST DOSE GIVEN: DATE:01/08/17 TIME:9:00 a.m. Hydrocodone-Apap 7.5-325 (Hydrocodone Bit/Acetaminophen) 1 Each Tablet 1-2 Tab PO PRN Q6HRS PRN Took at 12:30 today may take anytime as needed for pain every 4 hours Amaryl (Glimepiride) 4 Mg Tablet 1 Tab PO BID LAST DOSE GIVEN: DATE:01/08/17 TIME:9:00 a.m. Potassium Chloride 20 Meq Tab.er.prt 1 Tab PO WEEKLY Meds not given this hospital admission. May resume home medications as approved by Physician. TIME: 8:30 a.m. NEXT DOSE DUE: DATE: 12-28-15 TIME: 8:30 a.m. Metolazone 5 Mg Tablet 5 Mg PO WEEKLY Meds not given this hospital admission. May resume home medications as approved by Physician. TIME: 8:30 a.m. NEXT DOSE DUE: DATE: 12-28-15 TIME: 8:30 a.m. Lexapro (Escitalopram Oxalate) 10 Mg Tablet 20 Mg PO DAILY LAST DOSE GIVEN: DATE:01/08/17 TIME:9:00 a.m. NEXT DOSE DUE: DATE: 12-28-15 TIME: 8:30 a.m. Cardizem Cd (Diltiazem Hcl) 240 Mg Cap.er.24h 120 Mg PO HS LAST DOSE GIVEN: DATE:01/07/17 TIME:9:00 p.m. NEXT DOSE DUE: DATE: 12-27-15 TIME: 9:00 p.m. Losartan Potassium 100 Mg Tablet 25 Mg PO DAILY LAST DOSE GIVEN: DATE:01/07/17 TIME:9:00 a.m. Crestor (Rosuvastatin Calcium) 40 Mg Tablet 40 Mg PO QHS LAST DOSE GIVEN: DATE:01/07/17 TIME:9:00 p.m. NEXT DOSE DUE: DATE: 12-27-15 TIME: 9:00 p.m. Vitals/I & O Vital Sign - Last 24 Hours 02/13/17 02/13/17 02/13/17 02/13/17 15:00 16:00 16:00 16:35 Temp 98.0 98.0 Pulse 77 92 Resp 19 21 B/P (MAP) 147/59 (88) 155/65 (95) Pulse Ox 97 96 95 O2 Delivery BiPAP/CPAP Bi-pap BiPAP/CPAP BiPAP/CPAP 02/13/17 02/13/17 02/13/17 02/13/17 17:00 18:00 18:04 19:00 Temp 97.9 97.9 Pulse 93 96 87 Resp 18 18 B/P (MAP) 142/71 (94) 140/72 (94) 150/72 (98) Pulse Ox 96 94 96 96 O2 Delivery BiPAP/CPAP BiPAP/CPAP BiPAP/CPAP BiPAP/CPAP 02/13/17 02/13/17 02/13/17 02/13/17 19:26 20:00 20:00 21:00 Pulse 96 96 Resp 21 B/P (MAP) 144/64 (90) 131/72 (91) Pulse Ox 96 96 97 O2 Delivery BiPAP/CPAP Bi-pap BiPAP/CPAP BiPAP/CPAP 02/13/17 02/13/17 02/13/17 02/14/17 22:00 23:00 23:35 00:00 Pulse 96 92 Resp 24 B/P (MAP) 153/71 (98) 147/77 (100) Pulse Ox 97 97 98 O2 Delivery Nasal Cannula Nasal Cannula Nasal Cannula Bi-pap O2 Flow Rate 3.0 3.0 6.0 02/14/17 02/14/17 02/14/17 02/14/17 00:00 01:00 02:00 03:00 Temp 98.5 98.5 Pulse 102 96 98 104 Resp 19 B/P (MAP) 153/85 (107) 155/92 (113) 159/88 (111) 148/65 (92) Pulse Ox 96 97 97 97 O2 Delivery Nasal Cannula Nasal Cannula Nasal Cannula Nasal Cannula O2 Flow Rate 3.0 3.0 3.0 3.0 02/14/17 02/14/17 02/14/17 02/14/17 03:41 04:00 04:00 05:00 Temp 98.7 98.7 Pulse 92 92 Resp 21 19 B/P (MAP) 136/70 (92) 124/58 (80) Pulse Ox 97 96 97 O2 Delivery Nasal Cannula Bi-pap BiPAP/CPAP BiPAP/CPAP O2 Flow Rate 5.0 02/14/17 02/14/17 02/14/17 02/14/17 05:38 06:00 07:00 08:00 Pulse 104 86 Resp 19 19 B/P (MAP) 148/65 (92) 123/52 (75) Pulse Ox 95 97 98 O2 Delivery BiPAP/CPAP Nasal Cannula Nasal Cannula O2 Flow Rate 3.0 3.0 02/14/17 02/14/17 02/14/17 02/14/17 08:00 08:00 08:32 09:00 Temp 98.2 98.2 Pulse 94 96 Resp 21 B/P (MAP) 133/61 (85) 142/62 (88) Pulse Ox 97 96 97 O2 Delivery Nasal Cannula BiPAP/CPAP Nasal Cannula O2 Flow Rate 3.0 3.0 3.0 02/14/17 02/14/17 02/14/17 02/14/17 09:20 10:00 11:00 12:00 Pulse 90 105 97 Resp 21 21 B/P (MAP) 142/60 146/93 (110) 138/62 (87) Pulse Ox 96 96 O2 Delivery Nasal Cannula Nasal Cannula O2 Flow Rate 3.0 3.0 3.0 02/14/17 02/14/17 02/14/17 12:00 12:00 12:26 Temp 97.6 97.6 Pulse 95 Resp 20 B/P (MAP) 134/72 (92) Pulse Ox 98 96 O2 Delivery Nasal Cannula Nasal Cannula Nasal Cannula O2 Flow Rate 3.0 3.0 3.0 Intake and Output 02/13/17 02/13/17 02/14/17 15:00 23:00 07:00 Intake Total 764.01 ml 0 ml Output Total 1910 ml 3200 ml 1450 ml Balance -1910 ml -2435.99 ml -1450 ml JUAN COOK MD Feb 14, 2017 14:12
--- NOTE | 2017-02-14 14:44 | PDOC ---
PULMONARY PROGRESS NOTES Subjective feels better wheezing improved Vitals Vital Signs Date Time Temp Pulse Resp B/P (MAP) Pulse Ox O2 Delivery O2 Flow Rate FiO2 02/14/17 12:26 96 Nasal Cannula 3.0 02/14/17 12:00 97.6 95 20 134/72 (92) 97.6 ROS: No Nausea, No Chest Pain, No Abdominal Pain, No Increase Cough General: Alert, No acute distress Lungs: Clear, Wheezing (improved) Cardiovascular: S1, S2 Abdomen: Soft, Other (obese) Neuro Exam: Alert Extremities: Other (2+edema) Labs Laboratory Tests Test 02/12/17 18:14 02/12/17 23:51 02/13/17 06:15 02/13/17 06:21 Glucose (Fingerstick) 199 mg/dL (70-99) 185 mg/dL (70-99) 242 mg/dL (70-99) White Blood Count 10.8 x10^3/uL (4.0-11.0) Red Blood Count 2.81 x10^6/uL (3.50-5.40) Hemoglobin 8.4 g/dL (12.0-15.5) Hematocrit 25.8 % (36.0-47.0) Mean Corpuscular Volume 92 fL (79-100) Mean Corpuscular Hemoglobin 30 pg (25-35) Mean Corpuscular Hemoglobin Concent 33 g/dL (31-37) Red Cell Distribution Width 15.8 % (11.5-14.5) Platelet Count 202 x10^3/uL (140-400) Sodium Level 151 mmol/L (136-145) Potassium Level 4.8 mmol/L (3.5-5.1) Chloride Level 111 mmol/L (98-107) Carbon Dioxide Level 39 mmol/L (21-32) Anion Gap 1 (6-14) Blood Urea Nitrogen 29 mg/dL (7-20) Creatinine 0.7 mg/dL (0.6-1.0) Estimated GFR (Cockcroft-Gault) 80.9 BUN/Creatinine Ratio 41 (6-20) Glucose Level 261 mg/dL (70-99) Calcium Level 8.2 mg/dL (8.5-10.1) Phosphorus Level 3.7 mg/dL (2.6-4.7) Magnesium Level 2.5 mg/dL (1.8-2.4) Total Bilirubin 0.8 mg/dL (0.2-1.0) Aspartate Amino Transf (AST/SGOT) 22 U/L (15-37) Alanine Aminotransferase (ALT/SGPT) 24 U/L (14-59) Alkaline Phosphatase 53 U/L (46-116) Total Protein 4.9 g/dL (6.4-8.2) Albumin 2.4 g/dL (3.4-5.0) Albumin/Globulin Ratio 1.0 (1.0-1.7) Triglycerides Level 113 mg/dL (0-150) Test 02/13/17 11:20 02/13/17 15:18 02/13/17 17:17 02/13/17 21:53 Glucose (Fingerstick) 315 mg/dL (70-99) 319 mg/dL (70-99) 290 mg/dL (70-99) Prothrombin Time 16.6 SEC (11.7-14.0) Prothromb Time International Ratio 1.4 (0.8-1.1) Test 02/14/17 01:43 02/14/17 06:10 02/14/17 06:47 02/14/17 08:30 Glucose (Fingerstick) 300 mg/dL (70-99) 298 mg/dL (70-99) White Blood Count 11.4 x10^3/uL (4.0-11.0) Red Blood Count 2.94 x10^6/uL (3.50-5.40) Hemoglobin 8.6 g/dL (12.0-15.5) Hematocrit 26.8 % (36.0-47.0) Mean Corpuscular Volume 91 fL (79-100) Mean Corpuscular Hemoglobin 29 pg (25-35) Mean Corpuscular Hemoglobin Concent 32 g/dL (31-37) Red Cell Distribution Width 15.3 % (11.5-14.5) Platelet Count 221 x10^3/uL (140-400) Sodium Level 150 mmol/L (136-145) Potassium Level 4.5 mmol/L (3.5-5.1) Chloride Level 109 mmol/L (98-107) Carbon Dioxide Level 40 mmol/L (21-32) Anion Gap 1 (6-14) Blood Urea Nitrogen 27 mg/dL (7-20) Creatinine 0.7 mg/dL (0.6-1.0) Estimated GFR (Cockcroft-Gault) 80.9 Glucose Level 293 mg/dL (70-99) Calcium Level 8.4 mg/dL (8.5-10.1) Phosphorus Level 3.2 mg/dL (2.6-4.7) Magnesium Level 2.4 mg/dL (1.8-2.4) O2 Saturation 93 % (92-99) Arterial Blood pH 7.47 (7.35-7.45) Arterial Blood pCO2 at Patient Temp 51 mmHg (35-46) Arterial Blood pO2 at Patient Temp 70 mmHg (65-108) Arterial Blood HCO3 37 mmol/L (21-28) Arterial Blood Base Excess 12 mmol/L (-3-3) FiO2 30 Test 02/14/17 09:15 02/14/17 12:36 Glucose (Fingerstick) 304 mg/dL (70-99) 269 mg/dL (70-99) Laboratory Tests Test 02/13/17 15:18 02/13/17 17:17 02/13/17 21:53 02/14/17 01:43 Prothrombin Time 16.6 SEC (11.7-14.0) Prothromb Time International Ratio 1.4 (0.8-1.1) Glucose (Fingerstick) 319 mg/dL (70-99) 290 mg/dL (70-99) 300 mg/dL (70-99) Test 02/14/17 06:10 02/14/17 06:47 02/14/17 08:30 02/14/17 09:15 White Blood Count 11.4 x10^3/uL (4.0-11.0) Red Blood Count 2.94 x10^6/uL (3.50-5.40) Hemoglobin 8.6 g/dL (12.0-15.5) Hematocrit 26.8 % (36.0-47.0) Mean Corpuscular Volume 91 fL (79-100) Mean Corpuscular Hemoglobin 29 pg (25-35) Mean Corpuscular Hemoglobin Concent 32 g/dL (31-37) Red Cell Distribution Width 15.3 % (11.5-14.5) Platelet Count 221 x10^3/uL (140-400) Sodium Level 150 mmol/L (136-145) Potassium Level 4.5 mmol/L (3.5-5.1) Chloride Level 109 mmol/L (98-107) Carbon Dioxide Level 40 mmol/L (21-32) Anion Gap 1 (6-14) Blood Urea Nitrogen 27 mg/dL (7-20) Creatinine 0.7 mg/dL (0.6-1.0) Estimated GFR (Cockcroft-Gault) 80.9 Glucose Level 293 mg/dL (70-99) Calcium Level 8.4 mg/dL (8.5-10.1) Phosphorus Level 3.2 mg/dL (2.6-4.7) Magnesium Level 2.4 mg/dL (1.8-2.4) Glucose (Fingerstick) 298 mg/dL (70-99) 304 mg/dL (70-99) O2 Saturation 93 % (92-99) Arterial Blood pH 7.47 (7.35-7.45) Arterial Blood pCO2 at Patient Temp 51 mmHg (35-46) Arterial Blood pO2 at Patient Temp 70 mmHg (65-108) Arterial Blood HCO3 37 mmol/L (21-28) Arterial Blood Base Excess 12 mmol/L (-3-3) FiO2 30 Test 02/14/17 12:36 Glucose (Fingerstick) 269 mg/dL (70-99) Medications Active Scripts Medications Dose Route/Sig Max Daily Dose Days Date Category Dose Instructions Ferrous Sulfate 325 Mg Tablet 1 Tab PO BID 01/08/17 Reported LAST DOSE GIVEN: DATE:01/08/17 TIME:9:00 a.m. Warfarin Sodium 5 Mg Tablet 1 Tab PO DAILY 30 01/08/17 Reported LAST DOSE GIVEN: DATE:01/08/17 TIME:2:00 p.m Levothyroxine Sodium 137 Mcg Tablet 137 Mcg PO DAILYAC 01/04/17 Reported LAST DOSE GIVEN: DATE:01/08/17 TIME:7:30 a.m. Furosemide 40 Mg Tablet 40 Mg PO DAILY 01/04/17 Reported LAST DOSE GIVEN: DATE:01/07/17 TIME:9:00 a.m. Aspirin 81 Mg Tab.chew 1 Tab PO DAILY 11/16/16 Reported LAST DOSE GIVEN: DATE:01/08/17 TIME:9:00 a.m. Hydrocodone-Apap 7.5-325 (Hydrocodone Bit/Acetaminophen) 1 Each Tablet 1-2 Tab PO PRN Q6HRS PRN 12/26/15 Reported Took at 12:30 today may take anytime as needed for pain every 4 hours Amaryl (Glimepiride) 4 Mg Tablet 1 Tab PO BID 12/16/15 Reported LAST DOSE GIVEN: DATE:01/08/17 TIME:9:00 a.m. Potassium Chloride 20 Meq Tab.er.prt 1 Tab PO WEEKLY 04/17/15 Reported Meds not given this hospital admission. May resume home medications as approved by Physician. TIME: 8:30 a.m. NEXT DOSE DUE: DATE: 12-28-15 TIME: 8:30 a.m. Metolazone 5 Mg Tablet 5 Mg PO WEEKLY 04/16/15 Reported Meds not given this hospital admission. May resume home medications as approved by Physician. TIME: 8:30 a.m. NEXT DOSE DUE: DATE: 12-28-15 TIME: 8:30 a.m. Lexapro (Escitalopram Oxalate) 10 Mg Tablet 20 Mg PO DAILY 05/01/13 Reported LAST DOSE GIVEN: DATE:01/08/17 TIME:9:00 a.m. NEXT DOSE DUE: DATE: 12-28-15 TIME: 8:30 a.m. Cardizem Cd (Diltiazem Hcl) 240 Mg Cap.er.24h 120 Mg PO HS 05/01/13 Reported LAST DOSE GIVEN: DATE:01/07/17 TIME:9:00 p.m. NEXT DOSE DUE: DATE: 12-27-15 TIME: 9:00 p.m. Losartan Potassium 100 Mg Tablet 25 Mg PO DAILY 05/01/13 Reported LAST DOSE GIVEN: DATE:01/07/17 TIME:9:00 a.m. Crestor (Rosuvastatin Calcium) 40 Mg Tablet 40 Mg PO QHS 05/01/13 Reported LAST DOSE GIVEN: DATE:01/07/17 TIME:9:00 p.m. NEXT DOSE DUE: DATE: 12-27-15 TIME: 9:00 p.m. Impression . 1. Acute on chronic hypercapnic respiratory failure multifactorial / improved dyspnea and wheezing today 2. Sepsis per ID 3. JAYLIN 4. COPD with exacerbation 5. Moderate to severe protein-calorie malnutrition. 6. Abnormal chest x-ray 02/13 possible mild CHF 7. Acute Blood loss anemia 8. Coagulopathy 9. Morbid Obesity 10. Dysphagia Plan . BIPAP PRN NEBS STEROIDS LASIX PRN FOLLOW DYSPHAGIA DIET OK TO TRANSFER D/W ALYSSA GRANDE MD Feb 14, 2017 14:44
[2017-02-14] MEDS: ALPRAZolam 0.5 MG TABLET PO PRN (16:55)
[2017-02-14] MEDS: HYDROcodone/APAP 7.5/325MG 1 TAB TABLET PO PRN (16:56)
[2017-02-14] MEDS ORDERED: HYDROcodone/APAP 7.5/325MG 1 TAB TABLET PO PRN (17:00)
[2017-02-14] MEDS: ATORVASTATIN CALCIUM 40 MG TABLET. PO SCH (20:50)
[2017-02-14] MEDS ORDERED: [UNRECOGNIZED DRUG - OTHER] IV SCH ×10 (22:00)
[2017-02-14] MEDS ORDERED: DEXTROSE 70% IV SCH ×10 (22:00)
[2017-02-14] MEDS ORDERED: AMINO ACIDS IV SCH ×10 (22:00)
[2017-02-14] MEDS ORDERED: TOTAL PARENTERAL NUTRITION IV SCH ×10 (22:00)
[2017-02-15] MEDS: INSULIN ASPART 300 UNITS/3 ML INSULN.PEN SQ SCH ×8 (00:20→21:18)
[2017-02-15 03:00] VITALS: BP 136/56
[2017-02-15] MEDS: IPRATRPIUM/ALBUTEROL 0.5/2.5MG 3 ML NEBU. NEB SCH ×6 (04:27→23:07)
[2017-02-15] MEDS: methylPREDNISolone SOD SUCC PF 40 MG/ML VIAL. IV SCH ×3 (05:36→21:11)
[2017-02-15 05:59] LABS: HEMATOCRIT 27.3 % (36.0-47.0); HEMOGLOBIN 8.5 g/dL (12.0-15.5); RED BLOOD COUNT 2.96 x10^6/uL (3.50-5.40); RED CELL DISTRIBUTION WIDTH 15.5 % (11.5-14.5); WHITE BLOOD COUNT 11.1 x10^3/uL (4.0-11.0)
[2017-02-15 06:08] LABS: INR 1.2 (0.8-1.1); PROTHROMBIN TIME PATIENT 14.8 SEC (11.7-14.0)
[2017-02-15 06:25] LABS: CALCIUM 8.6 mg/dL (8.5-10.1); CREATININE 0.7 mg/dL (0.6-1.0); GFR 80.9; MAGNESIUM 2.3 mg/dL (1.8-2.4); PHOSPHORUS 2.8 mg/dL (2.6-4.7); POTASSIUM 4.6 mmol/L (3.5-5.1)
--- NOTE | 2017-02-15 07:33 | PDOC ---
PROGRESS NOTES Subjective Subjective Patient doing well Hbg Stable. INR improved. Objective Objective Vital Signs Date Time Temp Pulse Resp B/P (MAP) Pulse Ox O2 Delivery O2 Flow Rate FiO2 02/15/17 04:30 BiPAP/CPAP 02/15/17 03:00 97.7 103 18 136/56 (82) 94 97.7 02/14/17 20:50 3.0 Intake and Output 02/15/17 07:00 Intake Total 1247 ml Output Total 1760 ml Balance -513 ml Intake Oral 360 ml IV Total 887 ml Output Urine Total 1760 ml Physical Exam Abdomen: Normal bowel sounds Heart: Other (Irregular) Extremities: Other (2+) Lungs: Clear to auscultation Assessment Assessment Problems Medical Problems: (1) Acute on chronic congestive heart failure Status: Acute (2) COPD (chronic obstructive pulmonary disease) Status: Acute (3) Healthcare-associated pneumonia Status: Acute (4) Morbid obesity Status: Acute (5) Sepsis Status: Acute (6) Severe protein-calorie malnutrition Status: Acute (7) Urinary tract infection Status: Acute 1. Acute on chronic respiratory failure. 2. Anemia due to GI bleed 3. Healthcare acquired pneumonia. 4. Sepsis syndrome 5. Chronic obstructive pulmonary disease with exacerbation. 6. Atrial fibrillation with rapid ventricular response. 7. Obstructive sleep apnea. 8. Aortic stenosis. 9. Morbid obesity. 10.Hypertension. 11.Type 2 diabetes. 12.Hypothyroidism. 13.Generalized anxiety disorder. 14.Severe protein-calorie malnutrition. 15.Urinary tract infection. 16. History of diastolic congestive heart failure possibly due to cor pulmonale 17.Status post recent left total knee revision 18.coagulopathy on coumadin 19.Blood culture + coag neg staph 1/6bottles, possible contaminant- see above 20.Pulmonary HTN 21 Chronic diastolic CHF Plan Plan of Care Follow CBC Check INR Start PO speech eval in am for clear liquids D/C tpn continue Card,ID and Pulm Care D/C rectal tube and Rivas Comment Review of Relevant I have reviewed the following items donald (where applicable) has been applied. Labs Laboratory Tests Test 02/13/17 11:20 02/13/17 15:18 02/13/17 17:17 02/13/17 21:53 Glucose (Fingerstick) 315 mg/dL (70-99) 319 mg/dL (70-99) 290 mg/dL (70-99) Prothrombin Time 16.6 SEC (11.7-14.0) Prothromb Time International Ratio 1.4 (0.8-1.1) Test 02/14/17 01:43 02/14/17 06:10 02/14/17 06:47 02/14/17 08:30 Glucose (Fingerstick) 300 mg/dL (70-99) 298 mg/dL (70-99) White Blood Count 11.4 x10^3/uL (4.0-11.0) Red Blood Count 2.94 x10^6/uL (3.50-5.40) Hemoglobin 8.6 g/dL (12.0-15.5) Hematocrit 26.8 % (36.0-47.0) Mean Corpuscular Volume 91 fL (79-100) Mean Corpuscular Hemoglobin 29 pg (25-35) Mean Corpuscular Hemoglobin Concent 32 g/dL (31-37) Red Cell Distribution Width 15.3 % (11.5-14.5) Platelet Count 221 x10^3/uL (140-400) Sodium Level 150 mmol/L (136-145) Potassium Level 4.5 mmol/L (3.5-5.1) Chloride Level 109 mmol/L (98-107) Carbon Dioxide Level 40 mmol/L (21-32) Anion Gap 1 (6-14) Blood Urea Nitrogen 27 mg/dL (7-20) Creatinine 0.7 mg/dL (0.6-1.0) Estimated GFR (Cockcroft-Gault) 80.9 Glucose Level 293 mg/dL (70-99) Calcium Level 8.4 mg/dL (8.5-10.1) Phosphorus Level 3.2 mg/dL (2.6-4.7) Magnesium Level 2.4 mg/dL (1.8-2.4) O2 Saturation 93 % (92-99) Arterial Blood pH 7.47 (7.35-7.45) Arterial Blood pCO2 at Patient Temp 51 mmHg (35-46) Arterial Blood pO2 at Patient Temp 70 mmHg (65-108) Arterial Blood HCO3 37 mmol/L (21-28) Arterial Blood Base Excess 12 mmol/L (-3-3) FiO2 30 Test 02/14/17 09:15 02/14/17 12:36 02/14/17 16:22 02/14/17 22:06 Glucose (Fingerstick) 304 mg/dL (70-99) 269 mg/dL (70-99) 226 mg/dL (70-99) 409 mg/dL (70-99) Test 02/15/17 00:16 02/15/17 05:25 02/15/17 05:30 Glucose (Fingerstick) 396 mg/dL (70-99) 307 mg/dL (70-99) White Blood Count 11.1 x10^3/uL (4.0-11.0) Red Blood Count 2.96 x10^6/uL (3.50-5.40) Hemoglobin 8.5 g/dL (12.0-15.5) Hematocrit 27.3 % (36.0-47.0) Mean Corpuscular Volume 92 fL (79-100) Mean Corpuscular Hemoglobin 29 pg (25-35) Mean Corpuscular Hemoglobin Concent 31 g/dL (31-37) Red Cell Distribution Width 15.5 % (11.5-14.5) Platelet Count 230 x10^3/uL (140-400) Prothrombin Time 14.8 SEC (11.7-14.0) Prothromb Time International Ratio 1.2 (0.8-1.1) Sodium Level 148 mmol/L (136-145) Potassium Level 4.6 mmol/L (3.5-5.1) Chloride Level 109 mmol/L (98-107) Carbon Dioxide Level 39 mmol/L (21-32) Anion Gap 0 (6-14) Blood Urea Nitrogen 28 mg/dL (7-20) Creatinine 0.7 mg/dL (0.6-1.0) Estimated GFR (Cockcroft-Gault) 80.9 Glucose Level 299 mg/dL (70-99) Calcium Level 8.6 mg/dL (8.5-10.1) Phosphorus Level 2.8 mg/dL (2.6-4.7) Magnesium Level 2.3 mg/dL (1.8-2.4) Laboratory Tests Test 02/14/17 08:30 02/14/17 09:15 02/14/17 12:36 02/14/17 16:22 O2 Saturation 93 % (92-99) Arterial Blood pH 7.47 (7.35-7.45) Arterial Blood pCO2 at Patient Temp 51 mmHg (35-46) Arterial Blood pO2 at Patient Temp 70 mmHg (65-108) Arterial Blood HCO3 37 mmol/L (21-28) Arterial Blood Base Excess 12 mmol/L (-3-3) FiO2 30 Glucose (Fingerstick) 304 mg/dL (70-99) 269 mg/dL (70-99) 226 mg/dL (70-99) Test 02/14/17 22:06 02/15/17 00:16 02/15/17 05:25 02/15/17 05:30 Glucose (Fingerstick) 409 mg/dL (70-99) 396 mg/dL (70-99) 307 mg/dL (70-99) White Blood Count 11.1 x10^3/uL (4.0-11.0) Red Blood Count 2.96 x10^6/uL (3.50-5.40) Hemoglobin 8.5 g/dL (12.0-15.5) Hematocrit 27.3 % (36.0-47.0) Mean Corpuscular Volume 92 fL (79-100) Mean Corpuscular Hemoglobin 29 pg (25-35) Mean Corpuscular Hemoglobin Concent 31 g/dL (31-37) Red Cell Distribution Width 15.5 % (11.5-14.5) Platelet Count 230 x10^3/uL (140-400) Prothrombin Time 14.8 SEC (11.7-14.0) Prothromb Time International Ratio 1.2 (0.8-1.1) Sodium Level 148 mmol/L (136-145) Potassium Level 4.6 mmol/L (3.5-5.1) Chloride Level 109 mmol/L (98-107) Carbon Dioxide Level 39 mmol/L (21-32) Anion Gap 0 (6-14) Blood Urea Nitrogen 28 mg/dL (7-20) Creatinine 0.7 mg/dL (0.6-1.0) Estimated GFR (Cockcroft-Gault) 80.9 Glucose Level 299 mg/dL (70-99) Calcium Level 8.6 mg/dL (8.5-10.1) Phosphorus Level 2.8 mg/dL (2.6-4.7) Magnesium Level 2.3 mg/dL (1.8-2.4) Microbiology 02/05/17 Blood Culture - Final, Complete NO GROWTH AFTER 5 DAYS 02/05/17 Urine Culture - Final, Complete 02/05/17 Urine Culture Result 1 (BISI) - Final, Complete Medications Current Medications Sodium Chloride 1,000 ml @ 620 mls/hr Q1H37M IV Last administered on 10:43; Start 02/05/17 at 09:05; Stop 02/05/17 at 12:05; Status DC Albuterol/ Ipratropium (Duoneb) 6 ml 1X ONCE NEB Last administered on 09:18; Start 02/05/17 at 09:15; Stop 02/05/17 at 09:16; Status DC Meropenem 1 gm/ Sodium Chloride 100 ml @ 200 mls/hr Q8HRS IV ; Start 02/05/17 at 14:00; Status UNV Vancomycin HCl (Vanco Per Pharmacy) 1 each PRN DAILY PRN MC SEE COMMENTS Last administered on 02/10/17 14:10; Start 02/05/17 at 11:30; Stop 02/11/17 at 08 :13; Status DC Levofloxacin/ Dextrose (Levaquin Per Pharmacy) 1 each PRN DAILY PRN MC SEE COMMENTS; Start 02/05/17 at 11:30; Stop 02/09/17 at 08:20; Status DC Vancomycin HCl 2 gm/Dextrose 500 ml @ 250 mls/hr 1X ONCE IV Last administered on 02/05/17 13:20; Start 02/05/17 at 12:00; Stop 02/05/17 at 13 :59; Status DC Meropenem (Merrem) 1 gm 1X ONCE IVP Last administered on 02/05/17 11:37; Start 02/05/17 at 12:00; Stop 02/05/17 at 19:17; Status DC Levofloxacin/ Dextrose 150 ml @ 100 mls/hr 1X ONCE IV Last administered on 11:38; Start 02/05/17 at 12:00; Stop 02/05/17 at 13:29; Status DC Methylprednisolone Sodium Succinate (SOLU-Medrol 125MG VIAL) 125 mg 1X ONCE IV Last administered on 02/05/17 12:06; Start 02/05/17 at 11:45; Stop at 11:59; Status DC Ondansetron HCl (Zofran) 4 mg PRN Q8HRS PRN IV NAUSEA/VOMITING; Start at 12:00; Stop 02/06/17 at 11:59; Status DC Sodium Chloride 1,000 ml @ 75 mls/hr [id number] IV Last administered on 16:24; Start 02/05/17 at 11:46; Stop 02/06/17 at 11:19; Status DC Acetaminophen (Tylenol) 650 mg PRN Q4HRS PRN PO FEVER Last administered on 03:34; Start 02/05/17 at 12:00; Stop 02/06/17 at 11:59; Status DC Albuterol/ Ipratropium (Duoneb) 3 ml RTQID NEB Last administered on 02/06/17 09:33; Start 02/05/17 at 12:00; Stop 02/06/17 at 11:59; Status DC Dobutamine HCl 2000 mg/Dextrose 250 ml @ 4.59 mls/hr CONT IV ; Start 02/05/17 at 12:00; Stop 02/05/17 at 13:17; Status DC Dobutamine HCl/ Dextrose 250 ml @ 18.375 mls/ hr CONT PRN IV SEE I/O RECORD; Start 02/05/17 at 13:15 Meropenem (Merrem) 1 gm Q8HRS IVP Last administered on 02/05/17 21:03; Start 02/05/17 at 21:00; Stop 02/05/17 at 21:53; Status DC Levofloxacin/ Dextrose 150 ml @ 100 mls/hr Q24H IV Last administered on 20:36; Start 02/06/17 at 12:00; Stop 02/09/17 at 08:24; Status DC Vancomycin HCl 1.75 gm/Dextrose/ Sodium Chloride 500 ml @ 250 mls/hr Q18H IV Last administered on 02/07/17 19:48; Start 02/06/17 at 07:00; Stop 02/08/17 at 13:27; Status DC Vancomycin HCl 1 each 1X ONCE MC Last administered on 02/07/17 00:30; Start 02/07/17 at 00:30; Stop 02/07/17 at 00:31; Status DC Methylprednisolone Sodium Succinate (SOLU-Medrol 40MG VIAL) 40 mg Q8HRS IV Last administered on 02/11/17 06:02; Start 02/05/17 at 16:00; Stop 02/11/17 at 13:17; Status DC Enoxaparin Sodium (Lovenox 40mg Syringe) 40 mg Q24H SQ Last administered on 16:24; Start 02/05/17 at 16:00; Stop 02/05/17 at 21:19; Status DC Aspirin (Children'S Aspirin) 81 mg DAILY PO Last administered on 02/08/17 08: 41; Start 02/06/17 at 09:00; Stop 02/12/17 at 09:29; Status DC Diltiazem HCl (Cardizem 24hr Cd) 120 mg QHS PO Last administered on 02/14/17 20:51; Start 02/05/17 at 21:00 Ferrous Sulfate (Feosol) 325 mg BID PO Last administered on 02/12/17 23:30; Start 02/05/17 at 21:00; Stop 02/13/17 at 08:13; Status DC Acetaminophen/ Hydrocodone Bitart (Lortab 7.5/325) 2 tab PRN Q6HRS PRN PO PAIN Last administered on 02/10/17 19:56; Start 02/05/17 at 17:15; Stop 02/14/17 at 16:52; Status DC Levothyroxine Sodium (Synthroid) 137 mcg DAILYAC PO Last administered on 08:51; Start 02/06/17 at 07:30 Warfarin Sodium (Coumadin) 5 mg DAILY16 PO Last administered on 02/07/17 17: 28; Start 02/05/17 at 22:00; Stop 02/08/17 at 09:53; Status DC Citalopram Hydrobromide (CeleXA) 40 mg DAILY PO Last administered on 08:51; Start 02/06/17 at 09:00 Glimepiride (Amaryl) 4 mg BIDWMEALS PO Last administered on 02/14/17 16:55; Start 02/05/17 at 17:30 Losartan Potassium (Cozaar) 25 mg DAILY PO ; Start 02/06/17 at 09:00; Stop at 11:22; Status DC Atorvastatin Calcium (Lipitor) 80 mg QHS PO Last administered on 02/14/17 20: 50; Start 02/05/17 at 21:00 Insulin Aspart (NovoLOG) 0-12 UNITS QIDACHS SQ Last administered on 02/14/17 22:15; Start 02/05/17 at 18:00 Norepinephrine Bitartrate 250 ml @ 0 mls/hr CONT PRN IV SEE I/O RECORD; Start 02/05/17 at 19:00 Albuterol/ Ipratropium (Duoneb) 3 ml STK-MED ONCE .ROUTE ; Start 02/05/17 at 19 :16; Stop 02/05/17 at 19:17; Status DC Meropenem (Merrem) 1 gm Q8HRS IVP Last administered on 02/08/17 05:33; Start 02/06/17 at 06:00; Stop 02/08/17 at 09:00; Status DC Warfarin Sodium (Coumadin Per Physician) 1 each PRN DAILY PRN MC SEE COMMENTS; Start 02/06/17 at 07:45; Status Cancel Lactobacillus Rhamnosus (Culturelle) 1 cap BID PO Last administered on 23:46; Start 02/06/17 at 09:00; Stop 02/14/17 at 12:42; Status DC Albuterol/ Ipratropium (Duoneb) 3 ml RTQID NEB Last administered on 02/13/17 07:54; Start 02/06/17 at 16:00; Stop 02/13/17 at 09:54; Status DC Alprazolam (Xanax) 0.5 mg PRN TID PRN PO ANXIETY / AGITATION Last administered on 02/12/17 23:30; Start 02/06/17 at 17:30; Stop 02/14/17 at 16:51; Status DC Metformin HCl (Glucophage) 500 mg BIDWMEALS PO Last administered on 02/12/17 18:12; Start 02/07/17 at 12:00; Stop 02/13/17 at 03:02; Status DC Polyethylene Glycol (miraLAX PACKET) 17 gm PRN DAILY PRN PO CONSTIPATION Last administered on 02/07/17 21:29; Start 02/07/17 at 20:00 Alteplase, Recombinant (Cathflo) 2 mg 1X ONCE INT CAT Last administered on 07:32; Start 02/08/17 at 08:00; Stop 02/08/17 at 08:01; Status DC Pantoprazole Sodium 80 mg/ Sodium Chloride 100 ml @ 10 mls/hr Q10H IV Last administered on 02/13/17 03:42; Start 02/08/17 at 13:30; Stop 02/13/17 at 15 :21; Status DC Vancomycin HCl 1.75 gm/Dextrose/ Sodium Chloride 500 ml @ 250 mls/hr Q18H IV Last administered on 02/11/17 02:15; Start 02/08/17 at 21:00; Stop 02/11/17 at 08:15; Status DC Digoxin (Lanoxin) 500 mcg 1X ONCE IV Last administered on 02/08/17 18:30; Start 02/08/17 at 18:15; Stop 02/08/17 at 18:26; Status DC Digoxin (Lanoxin) 250 mcg 1X ONCE IV Last administered on 02/08/17 19:56; Start 02/08/17 at 19:45; Stop 02/08/17 at 19:46; Status DC Fentanyl Citrate (Fentanyl 2ml Vial) 50 mcg PRN Q3HRS PRN IV PAIN Last administered on 02/08/17 21:09; Start 02/08/17 at 20:30 Albumin Human 500 ml @ 125 mls/hr 1X ONCE IV Last administered on 02/08/17 23:38; Start 02/08/17 at 22:00; Stop 02/09/17 at 01:59; Status DC Phytonadione 10 mg/Sodium Chloride 51 ml @ 102 mls/hr 1X ONCE IV Last administered on 02/09/17 07:24; Start 02/09/17 at 08:00; Stop 02/09/17 at 08 :29; Status DC Throat Lozenges (Chloraseptic) 1 spray PRN Q2HR PRN PO SORE THROAT Last administered on 02/09/17 13:40; Start 02/09/17 at 08:45 Digoxin (Lanoxin) 125 mcg 1X ONCE IV Last administered on 02/10/17 13:02; Start 02/10/17 at 12:15; Stop 02/10/17 at 12:16; Status DC Insulin Aspart (NovoLOG) 6 units Q6HRS SQ Last administered on 02/11/17 06:20 ; Start 02/10/17 at 15:00; Stop 02/11/17 at 11:54; Status DC Sodium Chloride (Saline Mist Nasal) 1 nara PRN Q1HR PRN NS NASAL CONGESTION; Start 02/10/17 at 17:30 Vancomycin HCl 1 each 1X ONCE MC ; Start 02/11/17 at 20:30; Stop 02/11/17 at 20:31; Status Cancel Insulin Aspart (NovoLOG) 10 units Q6HRS SQ Last administered on 02/13/17 11: 26; Start 02/11/17 at 12:00; Stop 02/13/17 at 14:10; Status DC Methylprednisolone Sodium Succinate (SOLU-Medrol 40MG VIAL) 40 mg DAILY IV Last administered on 02/13/17 08:13; Start 02/12/17 at 09:00; Stop 02/13/17 at 09:54; Status DC Sodium Chloride 1,000 ml @ 85 mls/hr [id number] IV Last administered on 14:21; Start 02/11/17 at 14:00; Stop 02/12/17 at 01:45; Status DC Artificial Tears (Artificial Tears) 1 drop PRN Q15MIN PRN OU DRY EYE; Start at 19:15 Phytonadione (Vitamin K Ampule) 5 mg 1X ONCE SQ Last administered on 11:32; Start 02/12/17 at 09:45; Stop 02/12/17 at 09:46; Status DC Info 1 each PRN DAILY PRN MC SEE COMMENTS Last administered on 02/14/17 12:35 ; Start 02/12/17 at 09:45 Sodium Chloride 60 meq/Potassium Chloride 25 meq/ Potassium Phosphate 13.6 mmol/ Magnesium Sulfate 5 meq/ Calcium Gluconate 10 meq/ Multivitamins 10 ml/Chromium / Copper/Manganese/ Seleni/Zn 1 ml/ Potassium Acetate 25 meq/Total Parenteral Nutrition/Amino Acids/Dextrose/ Fat Emuls... 1,512 ml @ 63 mls/hr TPN CONT IV Last administered on 02/12/17 23:32; Start 02/12/17 at 22:00; Stop at 21:59; Status DC Digoxin (Lanoxin) 250 mcg DAILY IV Last administered on 02/14/17 09:20; Start 02/12/17 at 14:30 Hydrocortisone Sodium Succinate (Solu-CORTEF) 125 mg 1X ONCE IV Last administered on 02/12/17 23:20; Start 02/12/17 at 16:15; Stop 02/12/17 at 16 :16; Status DC Diphenhydramine HCl (Benadryl) 50 mg 1X ONCE IVP Last administered on 23:21; Start 02/12/17 at 16:15; Stop 02/12/17 at 16:16; Status DC Famotidine (Pepcid Vial) 40 mg 1X ONCE IVP Last administered on 02/12/17 23: 21; Start 02/12/17 at 16:15; Stop 02/12/17 at 16:16; Status DC Diphenhydramine HCl (Benadryl) 25 mg 1X ONCE IVP Last administered on 23:47; Start 02/12/17 at 18:15; Stop 02/12/17 at 18:16; Status DC Iohexol (Omnipaque 300 Mg/ml) 90 ml 1X ONCE IV Last administered on 03:13; Start 02/13/17 at 03:30; Stop 02/13/17 at 03:31; Status DC Metformin HCl (Glucophage) 500 mg BIDWMEALS PO ; Start 02/15/17 at 08:00 Ferrous Sulfate 300 mg BID PO Last administered on 02/14/17 20:51; Start at 09:00 Albuterol/ Ipratropium (Duoneb) 3 ml Q4HRS NEB Last administered on 02/15/17 04:27; Start 02/13/17 at 12:00 Methylprednisolone Sodium Succinate (SOLU-Medrol 40MG VIAL) 60 mg Q8HRS IV Last administered on 02/15/17 05:36; Start 02/13/17 at 14:00 Potassium Chloride 25 meq/ Potassium Phosphate 13.6 mmol/Magnesium Sulfate 2.5 meq/ Calcium Gluconate 10 meq/ Multivitamins 10 ml/Chromium/ Copper/Manganese/ Seleni/Zn 1 ml/ Potassium Acetate 25 meq/Total Parenteral Nutrition/Amino Acids/ Dextrose/ Fat Emulsion Intravenous 1,512 ml @ 63 mls/hr TPN CONT IV Last administered on 02/13/17 22:12; Start 02/13/17 at 22:00; Stop 02/14/17 at 21 :59; Status DC Furosemide (Lasix) 40 mg 1X ONCE IVP Last administered on 02/13/17 13:41; Start 02/13/17 at 13:00; Stop 02/13/17 at 13:01; Status DC Lorazepam (Ativan) 0.5 mg PRN Q4HRS PRN IV ANXIETY / AGITATION Last administered on 02/13/17 21:59; Start 02/13/17 at 14:15 Levothyroxine Sodium 75 mcg/ Sodium Chloride 5 ml @ 75 mls/hr DAILY IVP Last administered on 02/14/17 09:16; Start 02/13/17 at 15:00 Insulin Aspart (NovoLOG) 15 units Q6HRS SQ Last administered on 02/14/17 12: 39; Start 02/13/17 at 18:00; Stop 02/14/17 at 14:13; Status DC Pantoprazole Sodium (PROTONIX VIAL for IV PUSH) 40 mg BIDAC IVP Last administered on 02/14/17 16:04; Start 02/13/17 at 16:30 Potassium Chloride 40 meq/ Potassium Acetate 10 meq/Potassium Phosphate 13.6 mmol/Magnesium Sulfate 2.5 meq/ Calcium Gluconate 10 meq/ Multivitamins 10 ml/ Chromium/ Copper/Manganese/ Seleni/Zn 1 ml/ Total Parenteral Nutrition/Amino Acids/Dextrose/ Fat Emulsion Intravenous 1,512 ml @ 63 mls/hr TPN CONT IV Last administered on 02/14/17 22:17; Start 02/14/17 at 22:00; Stop 02/15/17 at 21:59 Insulin Aspart (NovoLOG) 20 units Q6HRS SQ Last administered on 02/15/17 05: 38; Start 02/14/17 at 18:00 Alprazolam (Xanax) 0.5 mg PRN Q8HRS PRN PO ANXIETY / AGITATION Last administered on 02/14/17 16:55; Start 02/14/17 at 17:00 Acetaminophen/ Hydrocodone Bitart (Lortab 7.5/325) 1 tab PRN Q6HRS PRN PO MILD PAIN Last administered on 02/14/17t 16:56; Start 02/14/17 at 17:00 Acetaminophen/ Hydrocodone Bitart (Lortab 7.5/325) 2 tab PRN Q6HRS PRN PO MODERATE PAIN, SEVERE PAIN; Start 02/14/17 at 17:00 Active Scripts Active Reported Ferrous Sulfate 325 Mg Tablet 1 Tab PO BID LAST DOSE GIVEN: DATE:01/08/17 TIME:9:00 a.m. Warfarin Sodium 5 Mg Tablet 1 Tab PO DAILY 30 Days LAST DOSE GIVEN: DATE:01/08/17 TIME:2:00 p.m Levothyroxine Sodium 137 Mcg Tablet 137 Mcg PO DAILYAC LAST DOSE GIVEN: DATE:01/08/17 TIME:7:30 a.m. Furosemide 40 Mg Tablet 40 Mg PO DAILY LAST DOSE GIVEN: DATE:01/07/17 TIME:9:00 a.m. Aspirin 81 Mg Tab.chew 1 Tab PO DAILY LAST DOSE GIVEN: DATE:01/08/17 TIME:9:00 a.m. Hydrocodone-Apap 7.5-325 (Hydrocodone Bit/Acetaminophen) 1 Each Tablet 1-2 Tab PO PRN Q6HRS PRN Took at 12:30 today may take anytime as needed for pain every 4 hours Amaryl (Glimepiride) 4 Mg Tablet 1 Tab PO BID LAST DOSE GIVEN: DATE:01/08/17 TIME:9:00 a.m. Potassium Chloride 20 Meq Tab.er.prt 1 Tab PO WEEKLY Meds not given this hospital admission. May resume home medications as approved by Physician. TIME: 8:30 a.m. NEXT DOSE DUE: DATE: 12-28-15 TIME: 8:30 a.m. Metolazone 5 Mg Tablet 5 Mg PO WEEKLY Meds not given this hospital admission. May resume home medications as approved by Physician. TIME: 8:30 a.m. NEXT DOSE DUE: DATE: 12-28-15 TIME: 8:30 a.m. Lexapro (Escitalopram Oxalate) 10 Mg Tablet 20 Mg PO DAILY LAST DOSE GIVEN: DATE:01/08/17 TIME:9:00 a.m. NEXT DOSE DUE: DATE: 12-28-15 TIME: 8:30 a.m. Cardizem Cd (Diltiazem Hcl) 240 Mg Cap.er.24h 120 Mg PO HS LAST DOSE GIVEN: DATE:01/07/17 TIME:9:00 p.m. NEXT DOSE DUE: DATE: 12-27-15 TIME: 9:00 p.m. Losartan Potassium 100 Mg Tablet 25 Mg PO DAILY LAST DOSE GIVEN: DATE:01/07/17 TIME:9:00 a.m. Crestor (Rosuvastatin Calcium) 40 Mg Tablet 40 Mg PO QHS LAST DOSE GIVEN: DATE:01/07/17 TIME:9:00 p.m. NEXT DOSE DUE: DATE: 12-27-15 TIME: 9:00 p.m. Vitals/I & O Vital Sign - Last 24 Hours 02/14/17 02/14/17 02/14/17 02/14/17 08:00 08:00 08:00 08:32 Temp 98.2 98.2 Pulse 94 Resp 21 B/P (MAP) 133/61 (85) Pulse Ox 97 96 O2 Delivery Nasal Cannula Nasal Cannula BiPAP/CPAP O2 Flow Rate 3.0 3.0 3.0 02/14/17 02/14/17 02/14/17 02/14/17 09:00 09:20 10:00 11:00 Pulse 96 90 105 97 Resp 21 21 B/P (MAP) 142/62 (88) 142/60 146/93 (110) 138/62 (87) Pulse Ox 97 96 96 O2 Delivery Nasal Cannula Nasal Cannula Nasal Cannula O2 Flow Rate 3.0 3.0 3.0 02/14/17 02/14/17 02/14/17 02/14/17 12:00 12:00 12:00 12:26 Temp 97.6 97.6 Pulse 95 Resp 20 B/P (MAP) 134/72 (92) Pulse Ox 98 96 O2 Delivery Nasal Cannula Nasal Cannula Nasal Cannula O2 Flow Rate 3.0 3.0 3.0 3.0 02/14/17 02/14/17 02/14/17 02/14/17 16:00 16:11 16:56 17:58 Temp 98.1 98.1 Pulse 106 Resp 19 20 18 B/P (MAP) 151/66 (94) Pulse Ox 96 96 O2 Delivery Nasal Cannula Nasal Cannula Nasal Cannula O2 Flow Rate 3.0 3.0 3.0 3.0 02/14/17 02/14/17 02/14/17 02/14/17 19:00 20:20 20:50 20:51 Temp 98.1 98.1 Pulse 79 79 Resp 20 B/P (MAP) 140/48 (78) 140/48 Pulse Ox 94 97 O2 Delivery Nasal Cannula Nasal Cannula Nasal Cannula O2 Flow Rate 3.0 3.0 3.0 02/14/17 02/14/17 02/14/17 02/15/17 21:35 23:00 23:54 03:00 Temp 97.7 97.7 97.7 97.7 Pulse 94 103 Resp 20 18 B/P (MAP) 113/49 (70) 136/56 (82) Pulse Ox 92 94 O2 Delivery BiPAP/CPAP BiPAP/CPAP BiPAP/CPAP BiPAP/CPAP 02/15/17 04:30 O2 Delivery BiPAP/CPAP Intake and Output 02/14/17 02/14/17 02/15/17 15:00 23:00 07:00 Intake Total 360 ml 887 ml Output Total 860 ml 900 ml Balance -860 ml 360 ml -13 ml JUAN COOK MD Feb 15, 2017 07:32
[2017-02-15 07:50] VITALS: BP 146/59
[2017-02-15] MEDS: GLIMEPIRIDE 2 MG TABLET. PO SCH ×2 (08:33→17:22)
[2017-02-15] MEDS: LEVOTHYROXINE 137 MCG TABLET PO SCH (08:33)
[2017-02-15] MEDS: metFORMIN 500 MG TABLET PO SCH ×2 (08:33→17:22)
[2017-02-15] MEDS: CITALOPRAM 20 MG TABLET. PO SCH (08:34)
[2017-02-15] MEDS: FERROUS SULFATE ORAL 300 MG/5 ML SOLUTION. PO SCH ×3 (08:34→21:03)
[2017-02-15] MEDS: PANTOPRAZOLE IV PUSH 40 MG VIAL. IVP SCH ×2 (08:34→17:22)
[2017-02-15] MEDS: DIGOXIN IV 500 MCG/2 ML AMPUL. IV SCH (08:35)
[2017-02-15] MEDS: NORMAL SALINE IVP SCH (08:36)
[2017-02-15] MEDS: LEVOTHYROXINE SODIUM IVP SCH (08:36)
--- NOTE | 2017-02-15 10:29 | PDOC ---
G I PROGRESS NOTE Reason for Follow-up ANemia/dysphagia Subjective Weak/wants to eat solids Physical Exam Lungs decreased BS CV S1 S2 ABD +BS, soft, nontender Review of Relevant I have reviewed the following items donald (where applicable) has been applied. Labs Laboratory Tests Test 02/13/17 11:20 02/13/17 15:18 02/13/17 17:17 02/13/17 21:53 Glucose (Fingerstick) 315 mg/dL (70-99) 319 mg/dL (70-99) 290 mg/dL (70-99) Prothrombin Time 16.6 SEC (11.7-14.0) Prothromb Time International Ratio 1.4 (0.8-1.1) Test 02/14/17 01:43 02/14/17 06:10 02/14/17 06:47 02/14/17 08:30 Glucose (Fingerstick) 300 mg/dL (70-99) 298 mg/dL (70-99) White Blood Count 11.4 x10^3/uL (4.0-11.0) Red Blood Count 2.94 x10^6/uL (3.50-5.40) Hemoglobin 8.6 g/dL (12.0-15.5) Hematocrit 26.8 % (36.0-47.0) Mean Corpuscular Volume 91 fL (79-100) Mean Corpuscular Hemoglobin 29 pg (25-35) Mean Corpuscular Hemoglobin Concent 32 g/dL (31-37) Red Cell Distribution Width 15.3 % (11.5-14.5) Platelet Count 221 x10^3/uL (140-400) Sodium Level 150 mmol/L (136-145) Potassium Level 4.5 mmol/L (3.5-5.1) Chloride Level 109 mmol/L (98-107) Carbon Dioxide Level 40 mmol/L (21-32) Anion Gap 1 (6-14) Blood Urea Nitrogen 27 mg/dL (7-20) Creatinine 0.7 mg/dL (0.6-1.0) Estimated GFR (Cockcroft-Gault) 80.9 Glucose Level 293 mg/dL (70-99) Calcium Level 8.4 mg/dL (8.5-10.1) Phosphorus Level 3.2 mg/dL (2.6-4.7) Magnesium Level 2.4 mg/dL (1.8-2.4) O2 Saturation 93 % (92-99) Arterial Blood pH 7.47 (7.35-7.45) Arterial Blood pCO2 at Patient Temp 51 mmHg (35-46) Arterial Blood pO2 at Patient Temp 70 mmHg (65-108) Arterial Blood HCO3 37 mmol/L (21-28) Arterial Blood Base Excess 12 mmol/L (-3-3) FiO2 30 Test 02/14/17 09:15 02/14/17 12:36 02/14/17 16:22 02/14/17 22:06 Glucose (Fingerstick) 304 mg/dL (70-99) 269 mg/dL (70-99) 226 mg/dL (70-99) 409 mg/dL (70-99) Test 02/15/17 00:16 02/15/17 05:25 02/15/17 05:30 02/15/17 07:54 Glucose (Fingerstick) 396 mg/dL (70-99) 307 mg/dL (70-99) 269 mg/dL (70-99) White Blood Count 11.1 x10^3/uL (4.0-11.0) Red Blood Count 2.96 x10^6/uL (3.50-5.40) Hemoglobin 8.5 g/dL (12.0-15.5) Hematocrit 27.3 % (36.0-47.0) Mean Corpuscular Volume 92 fL (79-100) Mean Corpuscular Hemoglobin 29 pg (25-35) Mean Corpuscular Hemoglobin Concent 31 g/dL (31-37) Red Cell Distribution Width 15.5 % (11.5-14.5) Platelet Count 230 x10^3/uL (140-400) Prothrombin Time 14.8 SEC (11.7-14.0) Prothromb Time International Ratio 1.2 (0.8-1.1) Sodium Level 148 mmol/L (136-145) Potassium Level 4.6 mmol/L (3.5-5.1) Chloride Level 109 mmol/L (98-107) Carbon Dioxide Level 39 mmol/L (21-32) Anion Gap 0 (6-14) Blood Urea Nitrogen 28 mg/dL (7-20) Creatinine 0.7 mg/dL (0.6-1.0) Estimated GFR (Cockcroft-Gault) 80.9 Glucose Level 299 mg/dL (70-99) Calcium Level 8.6 mg/dL (8.5-10.1) Phosphorus Level 2.8 mg/dL (2.6-4.7) Magnesium Level 2.3 mg/dL (1.8-2.4) Laboratory Tests Test 02/14/17 12:36 02/14/17 16:22 02/14/17 22:06 02/15/17 00:16 Glucose (Fingerstick) 269 mg/dL (70-99) 226 mg/dL (70-99) 409 mg/dL (70-99) 396 mg/dL (70-99) Test 02/15/17 05:25 02/15/17 05:30 02/15/17 07:54 Glucose (Fingerstick) 307 mg/dL (70-99) 269 mg/dL (70-99) White Blood Count 11.1 x10^3/uL (4.0-11.0) Red Blood Count 2.96 x10^6/uL (3.50-5.40) Hemoglobin 8.5 g/dL (12.0-15.5) Hematocrit 27.3 % (36.0-47.0) Mean Corpuscular Volume 92 fL (79-100) Mean Corpuscular Hemoglobin 29 pg (25-35) Mean Corpuscular Hemoglobin Concent 31 g/dL (31-37) Red Cell Distribution Width 15.5 % (11.5-14.5) Platelet Count 230 x10^3/uL (140-400) Prothrombin Time 14.8 SEC (11.7-14.0) Prothromb Time International Ratio 1.2 (0.8-1.1) Sodium Level 148 mmol/L (136-145) Potassium Level 4.6 mmol/L (3.5-5.1) Chloride Level 109 mmol/L (98-107) Carbon Dioxide Level 39 mmol/L (21-32) Anion Gap 0 (6-14) Blood Urea Nitrogen 28 mg/dL (7-20) Creatinine 0.7 mg/dL (0.6-1.0) Estimated GFR (Cockcroft-Gault) 80.9 Glucose Level 299 mg/dL (70-99) Calcium Level 8.6 mg/dL (8.5-10.1) Phosphorus Level 2.8 mg/dL (2.6-4.7) Magnesium Level 2.3 mg/dL (1.8-2.4) Microbiology 02/05/17 Blood Culture - Final, Complete NO GROWTH AFTER 5 DAYS 02/05/17 Urine Culture - Final, Complete 02/05/17 Urine Culture Result 1 (BISI) - Final, Complete Medications Current Medications Sodium Chloride 1,000 ml @ 620 mls/hr Q1H37M IV Last administered on 10:43; Start 02/05/17 at 09:05; Stop 02/05/17 at 12:05; Status DC Albuterol/ Ipratropium (Duoneb) 6 ml 1X ONCE NEB Last administered on 09:18; Start 02/05/17 at 09:15; Stop 02/05/17 at 09:16; Status DC Meropenem 1 gm/ Sodium Chloride 100 ml @ 200 mls/hr Q8HRS IV ; Start 02/05/17 at 14:00; Status UNV Vancomycin HCl (Vanco Per Pharmacy) 1 each PRN DAILY PRN MC SEE COMMENTS Last administered on 02/10/17 14:10; Start 02/05/17 at 11:30; Stop 02/11/17 at 08 :13; Status DC Levofloxacin/ Dextrose (Levaquin Per Pharmacy) 1 each PRN DAILY PRN MC SEE COMMENTS; Start 02/05/17 at 11:30; Stop 02/09/17 at 08:20; Status DC Vancomycin HCl 2 gm/Dextrose 500 ml @ 250 mls/hr 1X ONCE IV Last administered on 02/05/17 13:20; Start 02/05/17 at 12:00; Stop 02/05/17 at 13 :59; Status DC Meropenem (Merrem) 1 gm 1X ONCE IVP Last administered on 02/05/17 11:37; Start 02/05/17 at 12:00; Stop 02/05/17 at 19:17; Status DC Levofloxacin/ Dextrose 150 ml @ 100 mls/hr 1X ONCE IV Last administered on 11:38; Start 02/05/17 at 12:00; Stop 02/05/17 at 13:29; Status DC Methylprednisolone Sodium Succinate (SOLU-Medrol 125MG VIAL) 125 mg 1X ONCE IV Last administered on 02/05/17 12:06; Start 02/05/17 at 11:45; Stop at 11:59; Status DC Ondansetron HCl (Zofran) 4 mg PRN Q8HRS PRN IV NAUSEA/VOMITING; Start at 12:00; Stop 02/06/17 at 11:59; Status DC Sodium Chloride 1,000 ml @ 75 mls/hr [id number] IV Last administered on 16:24; Start 02/05/17 at 11:46; Stop 02/06/17 at 11:19; Status DC Acetaminophen (Tylenol) 650 mg PRN Q4HRS PRN PO FEVER Last administered on 03:34; Start 02/05/17 at 12:00; Stop 02/06/17 at 11:59; Status DC Albuterol/ Ipratropium (Duoneb) 3 ml RTQID NEB Last administered on 02/06/17 09:33; Start 02/05/17 at 12:00; Stop 02/06/17 at 11:59; Status DC Dobutamine HCl 2000 mg/Dextrose 250 ml @ 4.59 mls/hr CONT IV ; Start 02/05/17 at 12:00; Stop 02/05/17 at 13:17; Status DC Dobutamine HCl/ Dextrose 250 ml @ 18.375 mls/ hr CONT PRN IV SEE I/O RECORD; Start 02/05/17 at 13:15 Meropenem (Merrem) 1 gm Q8HRS IVP Last administered on 02/05/17 21:03; Start 02/05/17 at 21:00; Stop 02/05/17 at 21:53; Status DC Levofloxacin/ Dextrose 150 ml @ 100 mls/hr Q24H IV Last administered on 20:36; Start 02/06/17 at 12:00; Stop 02/09/17 at 08:24; Status DC Vancomycin HCl 1.75 gm/Dextrose/ Sodium Chloride 500 ml @ 250 mls/hr Q18H IV Last administered on 02/07/17 19:48; Start 02/06/17 at 07:00; Stop 02/08/17 at 13:27; Status DC Vancomycin HCl 1 each 1X ONCE MC Last administered on 02/07/17 00:30; Start 02/07/17 at 00:30; Stop 02/07/17 at 00:31; Status DC Methylprednisolone Sodium Succinate (SOLU-Medrol 40MG VIAL) 40 mg Q8HRS IV Last administered on 02/11/17 06:02; Start 02/05/17 at 16:00; Stop 02/11/17 at 13:17; Status DC Enoxaparin Sodium (Lovenox 40mg Syringe) 40 mg Q24H SQ Last administered on 16:24; Start 02/05/17 at 16:00; Stop 02/05/17 at 21:19; Status DC Aspirin (Children'S Aspirin) 81 mg DAILY PO Last administered on 02/08/17 08: 41; Start 02/06/17 at 09:00; Stop 02/12/17 at 09:29; Status DC Diltiazem HCl (Cardizem 24hr ) 120 mg QHS PO Last administered on 02/14/17 20:51; Start 02/05/17 at 21:00 Ferrous Sulfate (Feosol) 325 mg BID PO Last administered on 02/12/17 23:30; Start 02/05/17 at 21:00; Stop 02/13/17 at 08:13; Status DC Acetaminophen/ Hydrocodone Bitart (Lortab 7.5/325) 2 tab PRN Q6HRS PRN PO PAIN Last administered on 02/10/17 19:56; Start 02/05/17 at 17:15; Stop 02/14/17 at 16:52; Status DC Levothyroxine Sodium (Synthroid) 137 mcg DAILYAC PO Last administered on 08:33; Start 02/06/17 at 07:30 Warfarin Sodium (Coumadin) 5 mg DAILY16 PO Last administered on 02/07/17 17: 28; Start 02/05/17 at 22:00; Stop 02/08/17 at 09:53; Status DC Citalopram Hydrobromide (CeleXA) 40 mg DAILY PO Last administered on 08:34; Start 02/06/17 at 09:00 Glimepiride (Amaryl) 4 mg BIDWMEALS PO Last administered on 02/15/17 08:33; Start 02/05/17 at 17:30 Losartan Potassium (Cozaar) 25 mg DAILY PO ; Start 02/06/17 at 09:00; Stop at 11:22; Status DC Atorvastatin Calcium (Lipitor) 80 mg QHS PO Last administered on 02/14/17 20: 50; Start 02/05/17 at 21:00 Insulin Aspart (NovoLOG) 0-12 UNITS QIDACHS SQ Last administered on 02/15/17 08:45; Start 02/05/17 at 18:00 Norepinephrine Bitartrate 250 ml @ 0 mls/hr CONT PRN IV SEE I/O RECORD; Start 02/05/17 at 19:00 Albuterol/ Ipratropium (Duoneb) 3 ml STK-MED ONCE .ROUTE ; Start 02/05/17 at 19 :16; Stop 02/05/17 at 19:17; Status DC Meropenem (Merrem) 1 gm Q8HRS IVP Last administered on 02/08/17 05:33; Start 02/06/17 at 06:00; Stop 02/08/17 at 09:00; Status DC Warfarin Sodium (Coumadin Per Physician) 1 each PRN DAILY PRN MC SEE COMMENTS; Start 02/06/17 at 07:45; Status Cancel Lactobacillus Rhamnosus (Culturelle) 1 cap BID PO Last administered on 23:46; Start 02/06/17 at 09:00; Stop 02/14/17 at 12:42; Status DC Albuterol/ Ipratropium (Duoneb) 3 ml RTQID NEB Last administered on 02/13/17 07:54; Start 02/06/17 at 16:00; Stop 02/13/17 at 09:54; Status DC Alprazolam (Xanax) 0.5 mg PRN TID PRN PO ANXIETY / AGITATION Last administered on 02/12/17 23:30; Start 02/06/17 at 17:30; Stop 02/14/17 at 16:51; Status DC Metformin HCl (Glucophage) 500 mg BIDWMEALS PO Last administered on 02/12/17 18:12; Start 02/07/17 at 12:00; Stop 02/13/17 at 03:02; Status DC Polyethylene Glycol (miraLAX PACKET) 17 gm PRN DAILY PRN PO CONSTIPATION Last administered on 02/07/17 21:29; Start 02/07/17 at 20:00 Alteplase, Recombinant (Cathflo) 2 mg 1X ONCE INT CAT Last administered on 07:32; Start 02/08/17 at 08:00; Stop 02/08/17 at 08:01; Status DC Pantoprazole Sodium 80 mg/ Sodium Chloride 100 ml @ 10 mls/hr Q10H IV Last administered on 02/13/17 03:42; Start 02/08/17 at 13:30; Stop 02/13/17 at 15 :21; Status DC Vancomycin HCl 1.75 gm/Dextrose/ Sodium Chloride 500 ml @ 250 mls/hr Q18H IV Last administered on 02/11/17 02:15; Start 02/08/17 at 21:00; Stop 02/11/17 at 08:15; Status DC Digoxin (Lanoxin) 500 mcg 1X ONCE IV Last administered on 02/08/17 18:30; Start 02/08/17 at 18:15; Stop 02/08/17 at 18:26; Status DC Digoxin (Lanoxin) 250 mcg 1X ONCE IV Last administered on 02/08/17 19:56; Start 02/08/17 at 19:45; Stop 02/08/17 at 19:46; Status DC Fentanyl Citrate (Fentanyl 2ml Vial) 50 mcg PRN Q3HRS PRN IV PAIN Last administered on 02/08/17 21:09; Start 02/08/17 at 20:30 Albumin Human 500 ml @ 125 mls/hr 1X ONCE IV Last administered on 02/08/17 23:38; Start 02/08/17 at 22:00; Stop 02/09/17 at 01:59; Status DC Phytonadione 10 mg/Sodium Chloride 51 ml @ 102 mls/hr 1X ONCE IV Last administered on 02/09/17 07:24; Start 02/09/17 at 08:00; Stop 02/09/17 at 08 :29; Status DC Throat Lozenges (Chloraseptic) 1 spray PRN Q2HR PRN PO SORE THROAT Last administered on 02/09/17 13:40; Start 02/09/17 at 08:45 Digoxin (Lanoxin) 125 mcg 1X ONCE IV Last administered on 02/10/17 13:02; Start 02/10/17 at 12:15; Stop 02/10/17 at 12:16; Status DC Insulin Aspart (NovoLOG) 6 units Q6HRS SQ Last administered on 02/11/17 06:20 ; Start 02/10/17 at 15:00; Stop 02/11/17 at 11:54; Status DC Sodium Chloride (Saline Mist Nasal) 1 nara PRN Q1HR PRN NS NASAL CONGESTION; Start 02/10/17 at 17:30 Vancomycin HCl 1 each 1X ONCE MC ; Start 02/11/17 at 20:30; Stop 02/11/17 at 20:31; Status Cancel Insulin Aspart (NovoLOG) 10 units Q6HRS SQ Last administered on 02/13/17 11: 26; Start 02/11/17 at 12:00; Stop 02/13/17 at 14:10; Status DC Methylprednisolone Sodium Succinate (SOLU-Medrol 40MG VIAL) 40 mg DAILY IV Last administered on 02/13/17 08:13; Start 02/12/17 at 09:00; Stop 02/13/17 at 09:54; Status DC Sodium Chloride 1,000 ml @ 85 mls/hr [id number] IV Last administered on 14:21; Start 02/11/17 at 14:00; Stop 02/12/17 at 01:45; Status DC Artificial Tears (Artificial Tears) 1 drop PRN Q15MIN PRN OU DRY EYE; Start at 19:15 Phytonadione (Vitamin K Ampule) 5 mg 1X ONCE SQ Last administered on 11:32; Start 02/12/17 at 09:45; Stop 02/12/17 at 09:46; Status DC Info 1 each PRN DAILY PRN MC SEE COMMENTS Last administered on 02/14/17 12:35 ; Start 02/12/17 at 09:45; Stop 02/15/17 at 14:00 Sodium Chloride 60 meq/Potassium Chloride 25 meq/ Potassium Phosphate 13.6 mmol/ Magnesium Sulfate 5 meq/ Calcium Gluconate 10 meq/ Multivitamins 10 ml/Chromium / Copper/Manganese/ Seleni/Zn 1 ml/ Potassium Acetate 25 meq/Total Parenteral Nutrition/Amino Acids/Dextrose/ Fat Emuls... 1,512 ml @ 63 mls/hr TPN CONT IV Last administered on 02/12/17 23:32; Start 02/12/17 at 22:00; Stop at 21:59; Status DC Digoxin (Lanoxin) 250 mcg DAILY IV Last administered on 02/15/17 08:35; Start 02/12/17 at 14:30 Hydrocortisone Sodium Succinate (Solu-CORTEF) 125 mg 1X ONCE IV Last administered on 02/12/17 23:20; Start 02/12/17 at 16:15; Stop 02/12/17 at 16 :16; Status DC Diphenhydramine HCl (Benadryl) 50 mg 1X ONCE IVP Last administered on 23:21; Start 02/12/17 at 16:15; Stop 02/12/17 at 16:16; Status DC Famotidine (Pepcid Vial) 40 mg 1X ONCE IVP Last administered on 02/12/17 23: 21; Start 02/12/17 at 16:15; Stop 02/12/17 at 16:16; Status DC Diphenhydramine HCl (Benadryl) 25 mg 1X ONCE IVP Last administered on 23:47; Start 02/12/17 at 18:15; Stop 02/12/17 at 18:16; Status DC Iohexol (Omnipaque 300 Mg/ml) 90 ml 1X ONCE IV Last administered on 03:13; Start 02/13/17 at 03:30; Stop 02/13/17 at 03:31; Status DC Metformin HCl (Glucophage) 500 mg BIDWMEALS PO Last administered on 02/15/17 08:33; Start 02/15/17 at 08:00 Ferrous Sulfate 300 mg BID PO Last administered on 02/14/17 20:51; Start at 09:00 Albuterol/ Ipratropium (Duoneb) 3 ml Q4HRS NEB Last administered on 02/15/17 08:00; Start 02/13/17 at 12:00 Methylprednisolone Sodium Succinate (SOLU-Medrol 40MG VIAL) 60 mg Q8HRS IV Last administered on 02/15/17 05:36; Start 02/13/17 at 14:00 Potassium Chloride 25 meq/ Potassium Phosphate 13.6 mmol/Magnesium Sulfate 2.5 meq/ Calcium Gluconate 10 meq/ Multivitamins 10 ml/Chromium/ Copper/Manganese/ Seleni/Zn 1 ml/ Potassium Acetate 25 meq/Total Parenteral Nutrition/Amino Acids/ Dextrose/ Fat Emulsion Intravenous 1,512 ml @ 63 mls/hr TPN CONT IV Last administered on 02/13/17 22:12; Start 02/13/17 at 22:00; Stop 02/14/17 at 21 :59; Status DC Furosemide (Lasix) 40 mg 1X ONCE IVP Last administered on 02/13/17 13:41; Start 02/13/17 at 13:00; Stop 02/13/17 at 13:01; Status DC Lorazepam (Ativan) 0.5 mg PRN Q4HRS PRN IV ANXIETY / AGITATION Last administered on 02/13/17 21:59; Start 02/13/17 at 14:15 Levothyroxine Sodium 75 mcg/ Sodium Chloride 5 ml @ 75 mls/hr DAILY IVP Last administered on 02/15/17 08:36; Start 02/13/17 at 15:00 Insulin Aspart (NovoLOG) 15 units Q6HRS SQ Last administered on 02/14/17 12: 39; Start 02/13/17 at 18:00; Stop 02/14/17 at 14:13; Status DC Pantoprazole Sodium (PROTONIX VIAL for IV PUSH) 40 mg BIDAC IVP Last administered on 02/15/17 08:34; Start 02/13/17 at 16:30 Potassium Chloride 40 meq/ Potassium Acetate 10 meq/Potassium Phosphate 13.6 mmol/Magnesium Sulfate 2.5 meq/ Calcium Gluconate 10 meq/ Multivitamins 10 ml/ Chromium/ Copper/Manganese/ Seleni/Zn 1 ml/ Total Parenteral Nutrition/Amino Acids/Dextrose/ Fat Emulsion Intravenous 1,512 ml @ 63 mls/hr TPN CONT IV Last administered on 02/14/17 22:17; Start 02/14/17 at 22:00; Stop 02/15/17 at 21:59 Insulin Aspart (NovoLOG) 20 units Q6HRS SQ Last administered on 02/15/17 05: 38; Start 02/14/17 at 18:00 Alprazolam (Xanax) 0.5 mg PRN Q8HRS PRN PO ANXIETY / AGITATION Last administered on 02/14/17 16:55; Start 02/14/17 at 17:00 Acetaminophen/ Hydrocodone Bitart (Lortab 7.5/325) 1 tab PRN Q6HRS PRN PO MILD PAIN Last administered on 02/14/17 16:56; Start 02/14/17 at 17:00 Acetaminophen/ Hydrocodone Bitart (Lortab 7.5/325) 2 tab PRN Q6HRS PRN PO MODERATE PAIN, SEVERE PAIN; Start 02/14/17 at 17:00 Active Scripts Active Reported Ferrous Sulfate 325 Mg Tablet 1 Tab PO BID LAST DOSE GIVEN: DATE:01/08/17 TIME:9:00 a.m. Warfarin Sodium 5 Mg Tablet 1 Tab PO DAILY 30 Days LAST DOSE GIVEN: DATE:01/08/17 TIME:2:00 p.m Levothyroxine Sodium 137 Mcg Tablet 137 Mcg PO DAILYAC LAST DOSE GIVEN: DATE:01/08/17 TIME:7:30 a.m. Furosemide 40 Mg Tablet 40 Mg PO DAILY LAST DOSE GIVEN: DATE:01/07/17 TIME:9:00 a.m. Aspirin 81 Mg Tab.chew 1 Tab PO DAILY LAST DOSE GIVEN: DATE:01/08/17 TIME:9:00 a.m. Hydrocodone-Apap 7.5-325 (Hydrocodone Bit/Acetaminophen) 1 Each Tablet 1-2 Tab PO PRN Q6HRS PRN Took at 12:30 today may take anytime as needed for pain every 4 hours Amaryl (Glimepiride) 4 Mg Tablet 1 Tab PO BID LAST DOSE GIVEN: DATE:01/08/17 TIME:9:00 a.m. Potassium Chloride 20 Meq Tab.er.prt 1 Tab PO WEEKLY Meds not given this hospital admission. May resume home medications as approved by Physician. TIME: 8:30 a.m. NEXT DOSE DUE: DATE: 12-28-15 TIME: 8:30 a.m. Metolazone 5 Mg Tablet 5 Mg PO WEEKLY Meds not given this hospital admission. May resume home medications as approved by Physician. TIME: 8:30 a.m. NEXT DOSE DUE: DATE: 12-28-15 TIME: 8:30 a.m. Lexapro (Escitalopram Oxalate) 10 Mg Tablet 20 Mg PO DAILY LAST DOSE GIVEN: DATE:01/08/17 TIME:9:00 a.m. NEXT DOSE DUE: DATE: 12-28-15 TIME: 8:30 a.m. Cardizem Cd (Diltiazem Hcl) 240 Mg Cap.er.24h 120 Mg PO HS LAST DOSE GIVEN: DATE:01/07/17 TIME:9:00 p.m. NEXT DOSE DUE: DATE: 12-27-15 TIME: 9:00 p.m. Losartan Potassium 100 Mg Tablet 25 Mg PO DAILY LAST DOSE GIVEN: DATE:01/07/17 TIME:9:00 a.m. Crestor (Rosuvastatin Calcium) 40 Mg Tablet 40 Mg PO QHS LAST DOSE GIVEN: DATE:01/07/17 TIME:9:00 p.m. NEXT DOSE DUE: DATE: 12-27-15 TIME: 9:00 p.m. Vitals/I & O Vital Sign - Last 24 Hours 02/14/17 02/14/17 02/14/17 02/14/17 11:00 12:00 12:00 12:00 Temp 97.6 97.6 Pulse 97 95 Resp 21 20 B/P (MAP) 138/62 (87) 134/72 (92) Pulse Ox 96 98 O2 Delivery Nasal Cannula Nasal Cannula Nasal Cannula O2 Flow Rate 3.0 3.0 3.0 3.0 02/14/17 02/14/17 02/14/17 02/14/17 12:26 16:00 16:11 16:56 Temp 98.1 98.1 Pulse 106 Resp 19 20 B/P (MAP) 151/66 (94) Pulse Ox 96 96 96 O2 Delivery Nasal Cannula Nasal Cannula Nasal Cannula Nasal Cannula O2 Flow Rate 3.0 3.0 3.0 3.0 02/14/17 02/14/17 02/14/17 02/14/17 17:58 19:00 20:20 20:50 Temp 98.1 98.1 Pulse 79 Resp 18 20 B/P (MAP) 140/48 (78) Pulse Ox 94 97 O2 Delivery Nasal Cannula Nasal Cannula Nasal Cannula O2 Flow Rate 3.0 3.0 3.0 3.0 02/14/17 02/14/17 02/14/17 02/14/17 20:51 21:35 23:00 23:54 Temp 97.7 97.7 Pulse 79 94 Resp 20 B/P (MAP) 140/48 113/49 (70) Pulse Ox 92 O2 Delivery BiPAP/CPAP BiPAP/CPAP BiPAP/CPAP 02/15/17 02/15/17 02/15/17 02/15/17 03:00 04:30 07:22 07:22 Temp 97.7 97.7 Pulse 103 Resp 18 B/P (MAP) 136/56 (82) Pulse Ox 94 O2 Delivery BiPAP/CPAP BiPAP/CPAP Bi-pap O2 Flow Rate 3.0 3.0 02/15/17 02/15/17 02/15/17 07:50 08:01 08:35 Temp 97.5 97.5 Pulse 102 103 Resp 20 B/P (MAP) 146/59 (88) 136/56 Pulse Ox 94 O2 Delivery BiPAP/CPAP BiPAP/CPAP Intake and Output 02/14/17 02/14/17 02/15/17 15:00 23:00 07:00 Intake Total 360 ml 887 ml Output Total 860 ml 900 ml Balance -860 ml 360 ml -13 ml Problem List Problems Medical Problems: (1) Acute on chronic congestive heart failure Status: Acute (2) COPD (chronic obstructive pulmonary disease) Status: Acute (3) Healthcare-associated pneumonia Status: Acute (4) Morbid obesity Status: Acute (5) Sepsis Status: Acute (6) Severe protein-calorie malnutrition Status: Acute (7) Urinary tract infection Status: Acute Assessment Chronic anemia- with CHF/COPD, Hg stable, CPM, prognosis guarded HOLA BREWSTER MD Feb 15, 2017 10:29
[2017-02-15 10:37] VITALS: BP 129/81
--- NOTE | 2017-02-15 10:43 | PDOC ---
PULMONARY PROGRESS NOTES Subjective feels better wheezing improved Vitals Vital Signs Date Time Temp Pulse Resp B/P (MAP) Pulse Ox O2 Delivery O2 Flow Rate FiO2 02/15/17 08:35 103 136/56 02/15/17 08:01 BiPAP/CPAP 02/15/17 07:50 97.5 20 94 97.5 02/15/17 07:22 3.0 ROS: No Nausea, No Chest Pain, No Abdominal Pain, No Increase Cough General: Alert, No acute distress Lungs: Clear, Wheezing (improved) Cardiovascular: S1, S2 Abdomen: Soft, Other (obese) Neuro Exam: Alert Extremities: Other (2+edema) Labs Laboratory Tests Test 02/13/17 11:20 02/13/17 15:18 02/13/17 17:17 02/13/17 21:53 Glucose (Fingerstick) 315 mg/dL (70-99) 319 mg/dL (70-99) 290 mg/dL (70-99) Prothrombin Time 16.6 SEC (11.7-14.0) Prothromb Time International Ratio 1.4 (0.8-1.1) Test 02/14/17 01:43 02/14/17 06:10 02/14/17 06:47 02/14/17 08:30 Glucose (Fingerstick) 300 mg/dL (70-99) 298 mg/dL (70-99) White Blood Count 11.4 x10^3/uL (4.0-11.0) Red Blood Count 2.94 x10^6/uL (3.50-5.40) Hemoglobin 8.6 g/dL (12.0-15.5) Hematocrit 26.8 % (36.0-47.0) Mean Corpuscular Volume 91 fL (79-100) Mean Corpuscular Hemoglobin 29 pg (25-35) Mean Corpuscular Hemoglobin Concent 32 g/dL (31-37) Red Cell Distribution Width 15.3 % (11.5-14.5) Platelet Count 221 x10^3/uL (140-400) Sodium Level 150 mmol/L (136-145) Potassium Level 4.5 mmol/L (3.5-5.1) Chloride Level 109 mmol/L (98-107) Carbon Dioxide Level 40 mmol/L (21-32) Anion Gap 1 (6-14) Blood Urea Nitrogen 27 mg/dL (7-20) Creatinine 0.7 mg/dL (0.6-1.0) Estimated GFR (Cockcroft-Gault) 80.9 Glucose Level 293 mg/dL (70-99) Calcium Level 8.4 mg/dL (8.5-10.1) Phosphorus Level 3.2 mg/dL (2.6-4.7) Magnesium Level 2.4 mg/dL (1.8-2.4) O2 Saturation 93 % (92-99) Arterial Blood pH 7.47 (7.35-7.45) Arterial Blood pCO2 at Patient Temp 51 mmHg (35-46) Arterial Blood pO2 at Patient Temp 70 mmHg (65-108) Arterial Blood HCO3 37 mmol/L (21-28) Arterial Blood Base Excess 12 mmol/L (-3-3) FiO2 30 Test 02/14/17 09:15 02/14/17 12:36 02/14/17 16:22 02/14/17 22:06 Glucose (Fingerstick) 304 mg/dL (70-99) 269 mg/dL (70-99) 226 mg/dL (70-99) 409 mg/dL (70-99) Test 02/15/17 00:16 02/15/17 05:25 02/15/17 05:30 02/15/17 07:54 Glucose (Fingerstick) 396 mg/dL (70-99) 307 mg/dL (70-99) 269 mg/dL (70-99) White Blood Count 11.1 x10^3/uL (4.0-11.0) Red Blood Count 2.96 x10^6/uL (3.50-5.40) Hemoglobin 8.5 g/dL (12.0-15.5) Hematocrit 27.3 % (36.0-47.0) Mean Corpuscular Volume 92 fL (79-100) Mean Corpuscular Hemoglobin 29 pg (25-35) Mean Corpuscular Hemoglobin Concent 31 g/dL (31-37) Red Cell Distribution Width 15.5 % (11.5-14.5) Platelet Count 230 x10^3/uL (140-400) Prothrombin Time 14.8 SEC (11.7-14.0) Prothromb Time International Ratio 1.2 (0.8-1.1) Sodium Level 148 mmol/L (136-145) Potassium Level 4.6 mmol/L (3.5-5.1) Chloride Level 109 mmol/L (98-107) Carbon Dioxide Level 39 mmol/L (21-32) Anion Gap 0 (6-14) Blood Urea Nitrogen 28 mg/dL (7-20) Creatinine 0.7 mg/dL (0.6-1.0) Estimated GFR (Cockcroft-Gault) 80.9 Glucose Level 299 mg/dL (70-99) Calcium Level 8.6 mg/dL (8.5-10.1) Phosphorus Level 2.8 mg/dL (2.6-4.7) Magnesium Level 2.3 mg/dL (1.8-2.4) Laboratory Tests Test 02/14/17 12:36 02/14/17 16:22 02/14/17 22:06 02/15/17 00:16 Glucose (Fingerstick) 269 mg/dL (70-99) 226 mg/dL (70-99) 409 mg/dL (70-99) 396 mg/dL (70-99) Test 02/15/17 05:25 02/15/17 05:30 02/15/17 07:54 Glucose (Fingerstick) 307 mg/dL (70-99) 269 mg/dL (70-99) White Blood Count 11.1 x10^3/uL (4.0-11.0) Red Blood Count 2.96 x10^6/uL (3.50-5.40) Hemoglobin 8.5 g/dL (12.0-15.5) Hematocrit 27.3 % (36.0-47.0) Mean Corpuscular Volume 92 fL (79-100) Mean Corpuscular Hemoglobin 29 pg (25-35) Mean Corpuscular Hemoglobin Concent 31 g/dL (31-37) Red Cell Distribution Width 15.5 % (11.5-14.5) Platelet Count 230 x10^3/uL (140-400) Prothrombin Time 14.8 SEC (11.7-14.0) Prothromb Time International Ratio 1.2 (0.8-1.1) Sodium Level 148 mmol/L (136-145) Potassium Level 4.6 mmol/L (3.5-5.1) Chloride Level 109 mmol/L (98-107) Carbon Dioxide Level 39 mmol/L (21-32) Anion Gap 0 (6-14) Blood Urea Nitrogen 28 mg/dL (7-20) Creatinine 0.7 mg/dL (0.6-1.0) Estimated GFR (Cockcroft-Gault) 80.9 Glucose Level 299 mg/dL (70-99) Calcium Level 8.6 mg/dL (8.5-10.1) Phosphorus Level 2.8 mg/dL (2.6-4.7) Magnesium Level 2.3 mg/dL (1.8-2.4) Medications Active Scripts Medications Dose Route/Sig Max Daily Dose Days Date Category Dose Instructions Ferrous Sulfate 325 Mg Tablet 1 Tab PO BID 01/08/17 Reported LAST DOSE GIVEN: DATE:01/08/17 TIME:9:00 a.m. Warfarin Sodium 5 Mg Tablet 1 Tab PO DAILY 30 01/08/17 Reported LAST DOSE GIVEN: DATE:01/08/17 TIME:2:00 p.m Levothyroxine Sodium 137 Mcg Tablet 137 Mcg PO DAILYAC 01/04/17 Reported LAST DOSE GIVEN: DATE:01/08/17 TIME:7:30 a.m. Furosemide 40 Mg Tablet 40 Mg PO DAILY 01/04/17 Reported LAST DOSE GIVEN: DATE:01/07/17 TIME:9:00 a.m. Aspirin 81 Mg Tab.chew 1 Tab PO DAILY 11/16/16 Reported LAST DOSE GIVEN: DATE:01/08/17 TIME:9:00 a.m. Hydrocodone-Apap 7.5-325 (Hydrocodone Bit/Acetaminophen) 1 Each Tablet 1-2 Tab PO PRN Q6HRS PRN 12/26/15 Reported Took at 12:30 today may take anytime as needed for pain every 4 hours Amaryl (Glimepiride) 4 Mg Tablet 1 Tab PO BID 12/16/15 Reported LAST DOSE GIVEN: DATE:01/08/17 TIME:9:00 a.m. Potassium Chloride 20 Meq Tab.er.prt 1 Tab PO WEEKLY 04/17/15 Reported Meds not given this hospital admission. May resume home medications as approved by Physician. TIME: 8:30 a.m. NEXT DOSE DUE: DATE: 12-28-15 TIME: 8:30 a.m. Metolazone 5 Mg Tablet 5 Mg PO WEEKLY 04/16/15 Reported Meds not given this hospital admission. May resume home medications as approved by Physician. TIME: 8:30 a.m. NEXT DOSE DUE: DATE: 12-28-15 TIME: 8:30 a.m. Lexapro (Escitalopram Oxalate) 10 Mg Tablet 20 Mg PO DAILY 05/01/13 Reported LAST DOSE GIVEN: DATE:01/08/17 TIME:9:00 a.m. NEXT DOSE DUE: DATE: 12-28-15 TIME: 8:30 a.m. Cardizem Cd (Diltiazem Hcl) 240 Mg Cap.er.24h 120 Mg PO HS 05/01/13 Reported LAST DOSE GIVEN: DATE:01/07/17 TIME:9:00 p.m. NEXT DOSE DUE: DATE: 12-27-15 TIME: 9:00 p.m. Losartan Potassium 100 Mg Tablet 25 Mg PO DAILY 05/01/13 Reported LAST DOSE GIVEN: DATE:01/07/17 TIME:9:00 a.m. Crestor (Rosuvastatin Calcium) 40 Mg Tablet 40 Mg PO QHS 05/01/13 Reported LAST DOSE GIVEN: DATE:01/07/17 TIME:9:00 p.m. NEXT DOSE DUE: DATE: 12-27-15 TIME: 9:00 p.m. Impression . 1. Acute on chronic hypercapnic respiratory failure multifactorial / improved dyspnea and wheezing 2. Sepsis per ID 3. JAYLIN 4. COPD with exacerbation 5. Moderate to severe protein-calorie malnutrition. 6. Abnormal chest x-ray 02/13 possible mild CHF 7. Acute Blood loss anemia 8. Coagulopathy 9. Morbid Obesity 10. Dysphagia Plan . BIPAP PRN NEBS STEROIDS TAPER LASIX PRN FOLLOW DYSPHAGIA DIET STABLE PULMONARY [place] D/W RN ALYSSA SLADE MD Feb 15, 2017 10:43
[2017-02-15] MEDS: ACETAMINOPHEN 325 MG TABLET. PO PRN ×2 (10:47→17:25)
[2017-02-15] MEDS: PHENOL ORAL SPRAY 177ML BOTTLE. PO PRN ×2 (10:48→21:30)
[2017-02-15 14:58] VITALS: BP 132/57
[2017-02-15 19:00] VITALS: BP 133/61
--- NOTE | 2017-02-15 19:01 | PDOC ---
PROGRESS NOTES Subjective Subjective No new complaints. Patient resting comfortably Objective Objective Vital Signs Date Time Temp Pulse Resp B/P (MAP) Pulse Ox O2 Delivery O2 Flow Rate FiO2 02/15/17 16:01 88 BiPAP/CPAP 02/15/17 14:58 97.9 97 18 132/57 (82) 3.0 97.9 Intake and Output 02/15/17 07:00 Intake Total 1247 ml Output Total 1760 ml Balance -513 ml Intake Oral 360 ml IV Total 887 ml Output Urine Total 1760 ml Physical Exam Physical Exam No significant changes in cardiac exam Assessment Assessment The patient is slowly improving. I agree with present plan. Problems Medical Problems: (1) Acute on chronic congestive heart failure Status: Acute (2) COPD (chronic obstructive pulmonary disease) Status: Acute (3) Healthcare-associated pneumonia Status: Acute (4) Morbid obesity Status: Acute (5) Sepsis Status: Acute (6) Severe protein-calorie malnutrition Status: Acute (7) Urinary tract infection Status: Acute Comment Review of Relevant I have reviewed the following items donald (where applicable) has been applied. Labs Laboratory Tests Test 02/13/17 21:53 02/14/17 01:43 02/14/17 06:10 02/14/17 06:47 Glucose (Fingerstick) 290 mg/dL (70-99) 300 mg/dL (70-99) 298 mg/dL (70-99) White Blood Count 11.4 x10^3/uL (4.0-11.0) Red Blood Count 2.94 x10^6/uL (3.50-5.40) Hemoglobin 8.6 g/dL (12.0-15.5) Hematocrit 26.8 % (36.0-47.0) Mean Corpuscular Volume 91 fL (79-100) Mean Corpuscular Hemoglobin 29 pg (25-35) Mean Corpuscular Hemoglobin Concent 32 g/dL (31-37) Red Cell Distribution Width 15.3 % (11.5-14.5) Platelet Count 221 x10^3/uL (140-400) Sodium Level 150 mmol/L (136-145) Potassium Level 4.5 mmol/L (3.5-5.1) Chloride Level 109 mmol/L (98-107) Carbon Dioxide Level 40 mmol/L (21-32) Anion Gap 1 (6-14) Blood Urea Nitrogen 27 mg/dL (7-20) Creatinine 0.7 mg/dL (0.6-1.0) Estimated GFR (Cockcroft-Gault) 80.9 Glucose Level 293 mg/dL (70-99) Calcium Level 8.4 mg/dL (8.5-10.1) Phosphorus Level 3.2 mg/dL (2.6-4.7) Magnesium Level 2.4 mg/dL (1.8-2.4) Test 02/14/17 08:30 02/14/17 09:15 02/14/17 12:36 02/14/17 16:22 O2 Saturation 93 % (92-99) Arterial Blood pH 7.47 (7.35-7.45) Arterial Blood pCO2 at Patient Temp 51 mmHg (35-46) Arterial Blood pO2 at Patient Temp 70 mmHg (65-108) Arterial Blood HCO3 37 mmol/L (21-28) Arterial Blood Base Excess 12 mmol/L (-3-3) FiO2 30 Glucose (Fingerstick) 304 mg/dL (70-99) 269 mg/dL (70-99) 226 mg/dL (70-99) Test 02/14/17 22:06 02/15/17 00:16 02/15/17 05:25 02/15/17 05:30 Glucose (Fingerstick) 409 mg/dL (70-99) 396 mg/dL (70-99) 307 mg/dL (70-99) White Blood Count 11.1 x10^3/uL (4.0-11.0) Red Blood Count 2.96 x10^6/uL (3.50-5.40) Hemoglobin 8.5 g/dL (12.0-15.5) Hematocrit 27.3 % (36.0-47.0) Mean Corpuscular Volume 92 fL (79-100) Mean Corpuscular Hemoglobin 29 pg (25-35) Mean Corpuscular Hemoglobin Concent 31 g/dL (31-37) Red Cell Distribution Width 15.5 % (11.5-14.5) Platelet Count 230 x10^3/uL (140-400) Prothrombin Time 14.8 SEC (11.7-14.0) Prothromb Time International Ratio 1.2 (0.8-1.1) Sodium Level 148 mmol/L (136-145) Potassium Level 4.6 mmol/L (3.5-5.1) Chloride Level 109 mmol/L (98-107) Carbon Dioxide Level 39 mmol/L (21-32) Anion Gap 0 (6-14) Blood Urea Nitrogen 28 mg/dL (7-20) Creatinine 0.7 mg/dL (0.6-1.0) Estimated GFR (Cockcroft-Gault) 80.9 Glucose Level 299 mg/dL (70-99) Calcium Level 8.6 mg/dL (8.5-10.1) Phosphorus Level 2.8 mg/dL (2.6-4.7) Magnesium Level 2.3 mg/dL (1.8-2.4) Test 02/15/17 07:54 02/15/17 11:15 02/15/17 16:38 Glucose (Fingerstick) 269 mg/dL (70-99) 307 mg/dL (70-99) 275 mg/dL (70-99) Laboratory Tests Test 02/14/17 22:06 02/15/17 00:16 02/15/17 05:25 02/15/17 05:30 Glucose (Fingerstick) 409 mg/dL (70-99) 396 mg/dL (70-99) 307 mg/dL (70-99) White Blood Count 11.1 x10^3/uL (4.0-11.0) Red Blood Count 2.96 x10^6/uL (3.50-5.40) Hemoglobin 8.5 g/dL (12.0-15.5) Hematocrit 27.3 % (36.0-47.0) Mean Corpuscular Volume 92 fL (79-100) Mean Corpuscular Hemoglobin 29 pg (25-35) Mean Corpuscular Hemoglobin Concent 31 g/dL (31-37) Red Cell Distribution Width 15.5 % (11.5-14.5) Platelet Count 230 x10^3/uL (140-400) Prothrombin Time 14.8 SEC (11.7-14.0) Prothromb Time International Ratio 1.2 (0.8-1.1) Sodium Level 148 mmol/L (136-145) Potassium Level 4.6 mmol/L (3.5-5.1) Chloride Level 109 mmol/L (98-107) Carbon Dioxide Level 39 mmol/L (21-32) Anion Gap 0 (6-14) Blood Urea Nitrogen 28 mg/dL (7-20) Creatinine 0.7 mg/dL (0.6-1.0) Estimated GFR (Cockcroft-Gault) 80.9 Glucose Level 299 mg/dL (70-99) Calcium Level 8.6 mg/dL (8.5-10.1) Phosphorus Level 2.8 mg/dL (2.6-4.7) Magnesium Level 2.3 mg/dL (1.8-2.4) Test 02/15/17 07:54 02/15/17 11:15 02/15/17 16:38 Glucose (Fingerstick) 269 mg/dL (70-99) 307 mg/dL (70-99) 275 mg/dL (70-99) Microbiology 02/05/17 Blood Culture - Final, Complete NO GROWTH AFTER 5 DAYS 02/05/17 Urine Culture - Final, Complete 02/05/17 Urine Culture Result 1 (BISI) - Final, Complete Medications Current Medications Sodium Chloride 1,000 ml @ 620 mls/hr Q1H37M IV Last administered on 10:43; Start 02/05/17 at 09:05; Stop 02/05/17 at 12:05; Status DC Albuterol/ Ipratropium (Duoneb) 6 ml 1X ONCE NEB Last administered on 09:18; Start 02/05/17 at 09:15; Stop 02/05/17 at 09:16; Status DC Meropenem 1 gm/ Sodium Chloride 100 ml @ 200 mls/hr Q8HRS IV ; Start 02/05/17 at 14:00; Status UNV Vancomycin HCl (Vanco Per Pharmacy) 1 each PRN DAILY PRN MC SEE COMMENTS Last administered on 02/10/17 14:10; Start 02/05/17 at 11:30; Stop 02/11/17 at 08 :13; Status DC Levofloxacin/ Dextrose (Levaquin Per Pharmacy) 1 each PRN DAILY PRN MC SEE COMMENTS; Start 02/05/17 at 11:30; Stop 02/09/17 at 08:20; Status DC Vancomycin HCl 2 gm/Dextrose 500 ml @ 250 mls/hr 1X ONCE IV Last administered on 02/05/17 13:20; Start 02/05/17 at 12:00; Stop 02/05/17 at 13 :59; Status DC Meropenem (Merrem) 1 gm 1X ONCE IVP Last administered on 02/05/17 11:37; Start 02/05/17 at 12:00; Stop 02/05/17 at 19:17; Status DC Levofloxacin/ Dextrose 150 ml @ 100 mls/hr 1X ONCE IV Last administered on 11:38; Start 02/05/17 at 12:00; Stop 02/05/17 at 13:29; Status DC Methylprednisolone Sodium Succinate (SOLU-Medrol 125MG VIAL) 125 mg 1X ONCE IV Last administered on 02/05/17 12:06; Start 02/05/17 at 11:45; Stop at 11:59; Status DC Ondansetron HCl (Zofran) 4 mg PRN Q8HRS PRN IV NAUSEA/VOMITING; Start at 12:00; Stop 02/06/17 at 11:59; Status DC Sodium Chloride 1,000 ml @ 75 mls/hr [id number] IV Last administered on 16:24; Start 02/05/17 at 11:46; Stop 02/06/17 at 11:19; Status DC Acetaminophen (Tylenol) 650 mg PRN Q4HRS PRN PO FEVER Last administered on 03:34; Start 02/05/17 at 12:00; Stop 02/06/17 at 11:59; Status DC Albuterol/ Ipratropium (Duoneb) 3 ml RTQID NEB Last administered on 02/06/17 09:33; Start 02/05/17 at 12:00; Stop 02/06/17 at 11:59; Status DC Dobutamine HCl 2000 mg/Dextrose 250 ml @ 4.59 mls/hr CONT IV ; Start 02/05/17 at 12:00; Stop 02/05/17 at 13:17; Status DC Dobutamine HCl/ Dextrose 250 ml @ 18.375 mls/ hr CONT PRN IV SEE I/O RECORD; Start 02/05/17 at 13:15; Stop 02/15/17 at 13:19; Status DC Meropenem (Merrem) 1 gm Q8HRS IVP Last administered on 02/05/17 21:03; Start 02/05/17 at 21:00; Stop 02/05/17 at 21:53; Status DC Levofloxacin/ Dextrose 150 ml @ 100 mls/hr Q24H IV Last administered on 20:36; Start 02/06/17 at 12:00; Stop 02/09/17 at 08:24; Status DC Vancomycin HCl 1.75 gm/Dextrose/ Sodium Chloride 500 ml @ 250 mls/hr Q18H IV Last administered on 02/07/17 19:48; Start 02/06/17 at 07:00; Stop 02/08/17 at 13:27; Status DC Vancomycin HCl 1 each 1X ONCE MC Last administered on 02/07/17 00:30; Start 02/07/17 at 00:30; Stop 02/07/17 at 00:31; Status DC Methylprednisolone Sodium Succinate (SOLU-Medrol 40MG VIAL) 40 mg Q8HRS IV Last administered on 02/11/17 06:02; Start 02/05/17 at 16:00; Stop 02/11/17 at 13:17; Status DC Enoxaparin Sodium (Lovenox 40mg Syringe) 40 mg Q24H SQ Last administered on 16:24; Start 02/05/17 at 16:00; Stop 02/05/17 at 21:19; Status DC Aspirin (Children'S Aspirin) 81 mg DAILY PO Last administered on 02/08/17 08: 41; Start 02/06/17 at 09:00; Stop 02/12/17 at 09:29; Status DC Diltiazem HCl (Cardizem 24hr ) 120 mg QHS PO Last administered on 02/14/17 20:51; Start 02/05/17 at 21:00 Ferrous Sulfate (Feosol) 325 mg BID PO Last administered on 02/12/17 23:30; Start 02/05/17 at 21:00; Stop 02/13/17 at 08:13; Status DC Acetaminophen/ Hydrocodone Bitart (Lortab 7.5/325) 2 tab PRN Q6HRS PRN PO PAIN Last administered on 02/10/17 19:56; Start 02/05/17 at 17:15; Stop 02/14/17 at 16:52; Status DC Levothyroxine Sodium (Synthroid) 137 mcg DAILYAC PO Last administered on 08:33; Start 02/06/17 at 07:30; Stop 02/15/17 at 13:41; Status DC Warfarin Sodium (Coumadin) 5 mg DAILY16 PO Last administered on 02/07/17 17: 28; Start 02/05/17 at 22:00; Stop 02/08/17 at 09:53; Status DC Citalopram Hydrobromide (CeleXA) 40 mg DAILY PO Last administered on 08:34; Start 02/06/17 at 09:00 Glimepiride (Amaryl) 4 mg BIDWMEALS PO Last administered on 02/15/17 17:22; Start 02/05/17 at 17:30 Losartan Potassium (Cozaar) 25 mg DAILY PO ; Start 02/06/17 at 09:00; Stop at 11:22; Status DC Atorvastatin Calcium (Lipitor) 80 mg QHS PO Last administered on 02/14/17 20: 50; Start 02/05/17 at 21:00 Insulin Aspart (NovoLOG) 0-12 UNITS QIDACHS SQ Last administered on 02/15/17 17:31; Start 02/05/17 at 18:00 Norepinephrine Bitartrate 250 ml @ 0 mls/hr CONT PRN IV SEE I/O RECORD; Start 02/05/17 at 19:00; Stop 02/15/17 at 13:19; Status DC Albuterol/ Ipratropium (Duoneb) 3 ml STK-MED ONCE .ROUTE ; Start 02/05/17 at 19 :16; Stop 02/05/17 at 19:17; Status DC Meropenem (Merrem) 1 gm Q8HRS IVP Last administered on 02/08/17 05:33; Start 02/06/17 at 06:00; Stop 02/08/17 at 09:00; Status DC Warfarin Sodium (Coumadin Per Physician) 1 each PRN DAILY PRN MC SEE COMMENTS; Start 02/06/17 at 07:45; Status Cancel Lactobacillus Rhamnosus (Culturelle) 1 cap BID PO Last administered on 23:46; Start 02/06/17 at 09:00; Stop 02/14/17 at 12:42; Status DC Albuterol/ Ipratropium (Duoneb) 3 ml RTQID NEB Last administered on 02/13/17 07:54; Start 02/06/17 at 16:00; Stop 02/13/17 at 09:54; Status DC Alprazolam (Xanax) 0.5 mg PRN TID PRN PO ANXIETY / AGITATION Last administered on 02/12/17 23:30; Start 02/06/17 at 17:30; Stop 02/14/17 at 16:51; Status DC Metformin HCl (Glucophage) 500 mg BIDWMEALS PO Last administered on 02/12/17 18:12; Start 02/07/17 at 12:00; Stop 02/13/17 at 03:02; Status DC Polyethylene Glycol (miraLAX PACKET) 17 gm PRN DAILY PRN PO CONSTIPATION Last administered on 02/07/17 21:29; Start 02/07/17 at 20:00 Alteplase, Recombinant (Cathflo) 2 mg 1X ONCE INT CAT Last administered on 07:32; Start 02/08/17 at 08:00; Stop 02/08/17 at 08:01; Status DC Pantoprazole Sodium 80 mg/ Sodium Chloride 100 ml @ 10 mls/hr Q10H IV Last administered on 02/13/17 03:42; Start 02/08/17 at 13:30; Stop 02/13/17 at 15 :21; Status DC Vancomycin HCl 1.75 gm/Dextrose/ Sodium Chloride 500 ml @ 250 mls/hr Q18H IV Last administered on 02/11/17 02:15; Start 02/08/17 at 21:00; Stop 02/11/17 at 08:15; Status DC Digoxin (Lanoxin) 500 mcg 1X ONCE IV Last administered on 02/08/17 18:30; Start 02/08/17 at 18:15; Stop 02/08/17 at 18:26; Status DC Digoxin (Lanoxin) 250 mcg 1X ONCE IV Last administered on 02/08/17 19:56; Start 02/08/17 at 19:45; Stop 02/08/17 at 19:46; Status DC Fentanyl Citrate (Fentanyl 2ml Vial) 50 mcg PRN Q3HRS PRN IV PAIN Last administered on 02/08/17 21:09; Start 02/08/17 at 20:30 Albumin Human 500 ml @ 125 mls/hr 1X ONCE IV Last administered on 02/08/17 23:38; Start 02/08/17 at 22:00; Stop 02/09/17 at 01:59; Status DC Phytonadione 10 mg/Sodium Chloride 51 ml @ 102 mls/hr 1X ONCE IV Last administered on 02/09/17 07:24; Start 02/09/17 at 08:00; Stop 02/09/17 at 08 :29; Status DC Throat Lozenges (Chloraseptic) 1 spray PRN Q2HR PRN PO SORE THROAT Last administered on 02/15/17 10:48; Start 02/09/17 at 08:45 Digoxin (Lanoxin) 125 mcg 1X ONCE IV Last administered on 02/10/17 13:02; Start 02/10/17 at 12:15; Stop 02/10/17 at 12:16; Status DC Insulin Aspart (NovoLOG) 6 units Q6HRS SQ Last administered on 02/11/17 06:20 ; Start 02/10/17 at 15:00; Stop 02/11/17 at 11:54; Status DC Sodium Chloride (Saline Mist Nasal) 1 nara PRN Q1HR PRN NS NASAL CONGESTION; Start 02/10/17 at 17:30 Vancomycin HCl 1 each 1X ONCE MC ; Start 02/11/17 at 20:30; Stop 02/11/17 at 20:31; Status Cancel Insulin Aspart (NovoLOG) 10 units Q6HRS SQ Last administered on 02/13/17 11: 26; Start 02/11/17 at 12:00; Stop 02/13/17 at 14:10; Status DC Methylprednisolone Sodium Succinate (SOLU-Medrol 40MG VIAL) 40 mg DAILY IV Last administered on 02/13/17 08:13; Start 02/12/17 at 09:00; Stop 02/13/17 at 09:54; Status DC Sodium Chloride 1,000 ml @ 85 mls/hr [id number] IV Last administered on 14:21; Start 02/11/17 at 14:00; Stop 02/12/17 at 01:45; Status DC Artificial Tears (Artificial Tears) 1 drop PRN Q15MIN PRN OU DRY EYE; Start at 19:15 Phytonadione (Vitamin K Ampule) 5 mg 1X ONCE SQ Last administered on 11:32; Start 02/12/17 at 09:45; Stop 02/12/17 at 09:46; Status DC Info 1 each PRN DAILY PRN MC SEE COMMENTS Last administered on 02/14/17 12:35 ; Start 02/12/17 at 09:45; Stop 02/15/17 at 14:00; Status DC Sodium Chloride 60 meq/Potassium Chloride 25 meq/ Potassium Phosphate 13.6 mmol/ Magnesium Sulfate 5 meq/ Calcium Gluconate 10 meq/ Multivitamins 10 ml/Chromium / Copper/Manganese/ Seleni/Zn 1 ml/ Potassium Acetate 25 meq/Total Parenteral Nutrition/Amino Acids/Dextrose/ Fat Emuls... 1,512 ml @ 63 mls/hr TPN CONT IV Last administered on 02/12/17 23:32; Start 02/12/17 at 22:00; Stop at 21:59; Status DC Digoxin (Lanoxin) 250 mcg DAILY IV Last administered on 02/15/17 08:35; Start 02/12/17 at 14:30 Hydrocortisone Sodium Succinate (Solu-CORTEF) 125 mg 1X ONCE IV Last administered on 02/12/17 23:20; Start 02/12/17 at 16:15; Stop 02/12/17 at 16 :16; Status DC Diphenhydramine HCl (Benadryl) 50 mg 1X ONCE IVP Last administered on 23:21; Start 02/12/17 at 16:15; Stop 02/12/17 at 16:16; Status DC Famotidine (Pepcid Vial) 40 mg 1X ONCE IVP Last administered on 02/12/17 23: 21; Start 02/12/17 at 16:15; Stop 02/12/17 at 16:16; Status DC Diphenhydramine HCl (Benadryl) 25 mg 1X ONCE IVP Last administered on 23:47; Start 02/12/17 at 18:15; Stop 02/12/17 at 18:16; Status DC Iohexol (Omnipaque 300 Mg/ml) 90 ml 1X ONCE IV Last administered on 03:13; Start 02/13/17 at 03:30; Stop 02/13/17 at 03:31; Status DC Metformin HCl (Glucophage) 500 mg BIDWMEALS PO Last administered on 02/15/17 17:22; Start 02/15/17 at 08:00 Ferrous Sulfate 300 mg BID PO Last administered on 02/14/17 20:51; Start at 09:00 Albuterol/ Ipratropium (Duoneb) 3 ml Q4HRS NEB Last administered on 02/15/17 16:00; Start 02/13/17 at 12:00 Methylprednisolone Sodium Succinate (SOLU-Medrol 40MG VIAL) 60 mg Q8HRS IV Last administered on 02/15/17 15:10; Start 02/13/17 at 14:00 Potassium Chloride 25 meq/ Potassium Phosphate 13.6 mmol/Magnesium Sulfate 2.5 meq/ Calcium Gluconate 10 meq/ Multivitamins 10 ml/Chromium/ Copper/Manganese/ Seleni/Zn 1 ml/ Potassium Acetate 25 meq/Total Parenteral Nutrition/Amino Acids/ Dextrose/ Fat Emulsion Intravenous 1,512 ml @ 63 mls/hr TPN CONT IV Last administered on 02/13/17 22:12; Start 02/13/17 at 22:00; Stop 02/14/17 at 21 :59; Status DC Furosemide (Lasix) 40 mg 1X ONCE IVP Last administered on 02/13/17 13:41; Start 02/13/17 at 13:00; Stop 02/13/17 at 13:01; Status DC Lorazepam (Ativan) 0.5 mg PRN Q4HRS PRN IV ANXIETY / AGITATION Last administered on 02/13/17 21:59; Start 02/13/17 at 14:15 Levothyroxine Sodium 75 mcg/ Sodium Chloride 5 ml @ 75 mls/hr DAILY IVP Last administered on 02/15/17 08:36; Start 02/13/17 at 15:00; Stop 02/15/17 at 13 :22; Status DC Insulin Aspart (NovoLOG) 15 units Q6HRS SQ Last administered on 02/14/17 12: 39; Start 02/13/17 at 18:00; Stop 02/14/17 at 14:13; Status DC Pantoprazole Sodium (PROTONIX VIAL for IV PUSH) 40 mg BIDAC IVP Last administered on 02/15/17 17:22; Start 02/13/17 at 16:30 Potassium Chloride 40 meq/ Potassium Acetate 10 meq/Potassium Phosphate 13.6 mmol/Magnesium Sulfate 2.5 meq/ Calcium Gluconate 10 meq/ Multivitamins 10 ml/ Chromium/ Copper/Manganese/ Seleni/Zn 1 ml/ Total Parenteral Nutrition/Amino Acids/Dextrose/ Fat Emulsion Intravenous 1,512 ml @ 63 mls/hr TPN CONT IV Last administered on 02/14/17 22:17; Start 02/14/17 at 22:00; Stop 02/15/17 at 21:59 Insulin Aspart (NovoLOG) 20 units Q6HRS SQ Last administered on 02/15/17 17: 31; Start 02/14/17 at 18:00 Alprazolam (Xanax) 0.5 mg PRN Q8HRS PRN PO ANXIETY / AGITATION Last administered on 02/14/17 16:55; Start 02/14/17 at 17:00 Acetaminophen/ Hydrocodone Bitart (Lortab 7.5/325) 1 tab PRN Q6HRS PRN PO MILD PAIN Last administered on 02/14/17 16:56; Start 02/14/17 at 17:00 Acetaminophen/ Hydrocodone Bitart (Lortab 7.5/325) 2 tab PRN Q6HRS PRN PO MODERATE PAIN, SEVERE PAIN; Start 02/14/17 at 17:00 Acetaminophen (Tylenol) 650 mg PRN Q6HRS PRN PO Pain Last administered on 02/15 17:25; Start 02/15/17 at 10:45 Levothyroxine Sodium (Synthroid) 137 mcg DAILY06 PO ; Start 02/16/17 at 06:00 Active Scripts Active Reported Ferrous Sulfate 325 Mg Tablet 1 Tab PO BID LAST DOSE GIVEN: DATE:01/08/17 TIME:9:00 a.m. Warfarin Sodium 5 Mg Tablet 1 Tab PO DAILY 30 Days LAST DOSE GIVEN: DATE:01/08/17 TIME:2:00 p.m Levothyroxine Sodium 137 Mcg Tablet 137 Mcg PO DAILYAC LAST DOSE GIVEN: DATE:01/08/17 TIME:7:30 a.m. Furosemide 40 Mg Tablet 40 Mg PO DAILY LAST DOSE GIVEN: DATE:01/07/17 TIME:9:00 a.m. Aspirin 81 Mg Tab.chew 1 Tab PO DAILY LAST DOSE GIVEN: DATE:01/08/17 TIME:9:00 a.m. Hydrocodone-Apap 7.5-325 (Hydrocodone Bit/Acetaminophen) 1 Each Tablet 1-2 Tab PO PRN Q6HRS PRN Took at 12:30 today may take anytime as needed for pain every 4 hours Amaryl (Glimepiride) 4 Mg Tablet 1 Tab PO BID LAST DOSE GIVEN: DATE:01/08/17 TIME:9:00 a.m. Potassium Chloride 20 Meq Tab.er.prt 1 Tab PO WEEKLY Meds not given this hospital admission. May resume home medications as approved by Physician. TIME: 8:30 a.m. NEXT DOSE DUE: DATE: 12-28-15 TIME: 8:30 a.m. Metolazone 5 Mg Tablet 5 Mg PO WEEKLY Meds not given this hospital admission. May resume home medications as approved by Physician. TIME: 8:30 a.m. NEXT DOSE DUE: DATE: 12-28-15 TIME: 8:30 a.m. Lexapro (Escitalopram Oxalate) 10 Mg Tablet 20 Mg PO DAILY LAST DOSE GIVEN: DATE:01/08/17 TIME:9:00 a.m. NEXT DOSE DUE: DATE: 12-28-15 TIME: 8:30 a.m. Cardizem Cd (Diltiazem Hcl) 240 Mg Cap.er.24h 120 Mg PO HS LAST DOSE GIVEN: DATE:01/07/17 TIME:9:00 p.m. NEXT DOSE DUE: DATE: 12-27-15 TIME: 9:00 p.m. Losartan Potassium 100 Mg Tablet 25 Mg PO DAILY LAST DOSE GIVEN: DATE:01/07/17 TIME:9:00 a.m. Crestor (Rosuvastatin Calcium) 40 Mg Tablet 40 Mg PO QHS LAST DOSE GIVEN: DATE:01/07/17 TIME:9:00 p.m. NEXT DOSE DUE: DATE: 12-27-15 TIME: 9:00 p.m. Vitals/I & O Vital Sign - Last 24 Hours 02/14/17 02/14/17 02/14/17 02/14/17 20:20 20:50 20:51 21:35 Pulse 79 B/P (MAP) 140/48 Pulse Ox 97 O2 Delivery Nasal Cannula Nasal Cannula BiPAP/CPAP O2 Flow Rate 3.0 3.0 02/14/17 02/14/17 02/15/17 02/15/17 23:00 23:54 03:00 04:30 Temp 97.7 97.7 97.7 97.7 Pulse 94 103 Resp 20 18 B/P (MAP) 113/49 (70) 136/56 (82) Pulse Ox 92 94 O2 Delivery BiPAP/CPAP BiPAP/CPAP BiPAP/CPAP BiPAP/CPAP 02/15/17 02/15/17 02/15/17 02/15/17 07:22 07:22 07:50 08:01 Temp 97.5 97.5 Pulse 102 Resp 20 B/P (MAP) 146/59 (88) Pulse Ox 94 O2 Delivery Bi-pap BiPAP/CPAP BiPAP/CPAP O2 Flow Rate 3.0 3.0 02/15/17 02/15/17 02/15/17 02/15/17 08:35 10:37 14:58 16:01 Temp 97.9 97.9 97.9 97.9 Pulse 103 100 97 Resp 18 18 B/P (MAP) 136/56 129/81 (97) 132/57 (82) Pulse Ox 93 96 88 O2 Delivery Nasal Cannula Nasal Cannula BiPAP/CPAP O2 Flow Rate 3.0 3.0 Intake and Output 02/14/17 02/14/17 02/15/17 15:00 23:00 07:00 Intake Total 360 ml 887 ml Output Total 860 ml 900 ml Balance -860 ml 360 ml -13 ml CRYSTAL ARCHULETA MD Feb 15, 2017 19:01
[2017-02-15] MEDS: HYDROcodone/APAP 7.5/325MG 1 TAB TABLET PO PRN ×2 (21:02→21:10)
[2017-02-15] MEDS: ATORVASTATIN CALCIUM 40 MG TABLET. PO SCH (21:09)
[2017-02-15 23:00] VITALS: BP 121/57
[2017-02-16 03:00] VITALS: BP 128/66
[2017-02-16] MEDS: IPRATRPIUM/ALBUTEROL 0.5/2.5MG 3 ML NEBU. NEB SCH ×6 (03:03→23:13)
[2017-02-16 03:49] LABS: HEMATOCRIT 31.1 % (36.0-47.0); HEMOGLOBIN 9.7 g/dL (12.0-15.5); RED BLOOD COUNT 3.36 x10^6/uL (3.50-5.40); RED CELL DISTRIBUTION WIDTH 15.5 % (11.5-14.5); WHITE BLOOD COUNT 16.1 x10^3/uL (4.0-11.0)
[2017-02-16 04:30] LABS: CALCIUM 8.7 mg/dL (8.5-10.1); CREATININE 0.7 mg/dL (0.6-1.0); GFR 80.9
[2017-02-16] MEDS: methylPREDNISolone SOD SUCC PF 40 MG/ML VIAL. IV SCH (06:35)
[2017-02-16] MEDS: LEVOTHYROXINE 137 MCG TABLET PO SCH (06:35)
[2017-02-16] MEDS: PANTOPRAZOLE IV PUSH 40 MG VIAL. IVP SCH (06:36)
[2017-02-16 07:00] VITALS: BP 137/70
--- NOTE | 2017-02-16 07:20 | PDOC ---
PROGRESS NOTES Subjective Subjective Patient continues to improve. Now on PO meds and Rectal tube and gil out. Speech approved thin liquids. CXR show mild pulm edema Objective Objective Vital Signs Date Time Temp Pulse Resp B/P (MAP) Pulse Ox O2 Delivery O2 Flow Rate FiO2 02/16/17 03:00 97.3 104 18 128/66 (86) 94 Nasal Cannula 3.0 97.3 Intake and Output 02/16/17 06:59 Intake Total 480 ml Output Total 650 ml Balance -170 ml Intake Oral 480 ml Output Urine Total 650 ml Physical Exam Abdomen: Normal bowel sounds Heart: Other Extremities: Other (2+) General: Alert Lungs: Clear to auscultation Assessment Assessment Problems Medical Problems: (1) Acute on chronic congestive heart failure Status: Acute (2) COPD (chronic obstructive pulmonary disease) Status: Acute (3) Healthcare-associated pneumonia Status: Acute (4) Morbid obesity Status: Acute (5) Sepsis Status: Acute (6) Severe protein-calorie malnutrition Status: Acute (7) Urinary tract infection Status: Acute 1. Acute on chronic respiratory failure. 2. Anemia due to GI bleed 3. Healthcare acquired pneumonia. 4. Sepsis syndrome 5. Chronic obstructive pulmonary disease with exacerbation. 6. Atrial fibrillation with rapid ventricular response. 7. Obstructive sleep apnea. 8. Aortic stenosis. 9. Morbid obesity. 10.Hypertension. 11.Type 2 diabetes. 12.Hypothyroidism. 13.Generalized anxiety disorder. 14.Severe protein-calorie malnutrition. 15.Urinary tract infection. 16. History of diastolic congestive heart failure possibly due to cor pulmonale 17.Status post recent left total knee revision 18.coagulopathy on coumadin 19.Blood culture + coag neg staph 1/6bottles, possible contaminant- see above 20.Pulmonary HTN 21 Chronic diastolic CHF Plan Plan of Care Wean steroids to po Give lasix 40 mg x 1 Follow CBC Check INR Start PO speech eval in am for clear liquids continue Card,ID and Pulm Care Increase activity to SNU when stable Healthcare resort [facility] Comment Review of Relevant I have reviewed the following items donald (where applicable) has been applied. Labs Laboratory Tests Test 02/14/17 08:30 02/14/17 09:15 02/14/17 12:36 02/14/17 16:22 O2 Saturation 93 % (92-99) Arterial Blood pH 7.47 (7.35-7.45) Arterial Blood pCO2 at Patient Temp 51 mmHg (35-46) Arterial Blood pO2 at Patient Temp 70 mmHg (65-108) Arterial Blood HCO3 37 mmol/L (21-28) Arterial Blood Base Excess 12 mmol/L (-3-3) FiO2 30 Glucose (Fingerstick) 304 mg/dL (70-99) 269 mg/dL (70-99) 226 mg/dL (70-99) Test 02/14/17 22:06 02/15/17 00:16 02/15/17 05:25 02/15/17 05:30 Glucose (Fingerstick) 409 mg/dL (70-99) 396 mg/dL (70-99) 307 mg/dL (70-99) White Blood Count 11.1 x10^3/uL (4.0-11.0) Red Blood Count 2.96 x10^6/uL (3.50-5.40) Hemoglobin 8.5 g/dL (12.0-15.5) Hematocrit 27.3 % (36.0-47.0) Mean Corpuscular Volume 92 fL (79-100) Mean Corpuscular Hemoglobin 29 pg (25-35) Mean Corpuscular Hemoglobin Concent 31 g/dL (31-37) Red Cell Distribution Width 15.5 % (11.5-14.5) Platelet Count 230 x10^3/uL (140-400) Prothrombin Time 14.8 SEC (11.7-14.0) Prothromb Time International Ratio 1.2 (0.8-1.1) Sodium Level 148 mmol/L (136-145) Potassium Level 4.6 mmol/L (3.5-5.1) Chloride Level 109 mmol/L (98-107) Carbon Dioxide Level 39 mmol/L (21-32) Anion Gap 0 (6-14) Blood Urea Nitrogen 28 mg/dL (7-20) Creatinine 0.7 mg/dL (0.6-1.0) Estimated GFR (Cockcroft-Gault) 80.9 Glucose Level 299 mg/dL (70-99) Calcium Level 8.6 mg/dL (8.5-10.1) Phosphorus Level 2.8 mg/dL (2.6-4.7) Magnesium Level 2.3 mg/dL (1.8-2.4) Test 02/15/17 07:54 02/15/17 11:15 02/15/17 16:38 02/15/17 20:30 Glucose (Fingerstick) 269 mg/dL (70-99) 307 mg/dL (70-99) 275 mg/dL (70-99) 235 mg/dL (70-99) Test 02/16/17 03:45 White Blood Count 16.1 x10^3/uL (4.0-11.0) Red Blood Count 3.36 x10^6/uL (3.50-5.40) Hemoglobin 9.7 g/dL (12.0-15.5) Hematocrit 31.1 % (36.0-47.0) Mean Corpuscular Volume 93 fL (79-100) Mean Corpuscular Hemoglobin 29 pg (25-35) Mean Corpuscular Hemoglobin Concent 31 g/dL (31-37) Red Cell Distribution Width 15.5 % (11.5-14.5) Platelet Count 279 x10^3/uL (140-400) Sodium Level 147 mmol/L (136-145) Potassium Level 5.0 mmol/L (3.5-5.1) Chloride Level 108 mmol/L (98-107) Carbon Dioxide Level 36 mmol/L (21-32) Anion Gap 3 (6-14) Blood Urea Nitrogen 28 mg/dL (7-20) Creatinine 0.7 mg/dL (0.6-1.0) Estimated GFR (Cockcroft-Gault) 80.9 Glucose Level 228 mg/dL (70-99) Calcium Level 8.7 mg/dL (8.5-10.1) Laboratory Tests Test 02/15/17 07:54 02/15/17 11:15 02/15/17 16:38 02/15/17 20:30 Glucose (Fingerstick) 269 mg/dL (70-99) 307 mg/dL (70-99) 275 mg/dL (70-99) 235 mg/dL (70-99) Test 02/16/17 03:45 White Blood Count 16.1 x10^3/uL (4.0-11.0) Red Blood Count 3.36 x10^6/uL (3.50-5.40) Hemoglobin 9.7 g/dL (12.0-15.5) Hematocrit 31.1 % (36.0-47.0) Mean Corpuscular Volume 93 fL (79-100) Mean Corpuscular Hemoglobin 29 pg (25-35) Mean Corpuscular Hemoglobin Concent 31 g/dL (31-37) Red Cell Distribution Width 15.5 % (11.5-14.5) Platelet Count 279 x10^3/uL (140-400) Sodium Level 147 mmol/L (136-145) Potassium Level 5.0 mmol/L (3.5-5.1) Chloride Level 108 mmol/L (98-107) Carbon Dioxide Level 36 mmol/L (21-32) Anion Gap 3 (6-14) Blood Urea Nitrogen 28 mg/dL (7-20) Creatinine 0.7 mg/dL (0.6-1.0) Estimated GFR (Cockcroft-Gault) 80.9 Glucose Level 228 mg/dL (70-99) Calcium Level 8.7 mg/dL (8.5-10.1) Microbiology 02/05/17 Blood Culture - Final, Complete NO GROWTH AFTER 5 DAYS 02/05/17 Urine Culture - Final, Complete 02/05/17 Urine Culture Result 1 (BISI) - Final, Complete Medications Current Medications Sodium Chloride 1,000 ml @ 620 mls/hr Q1H37M IV Last administered on 10:43; Start 02/05/17 at 09:05; Stop 02/05/17 at 12:05; Status DC Albuterol/ Ipratropium (Duoneb) 6 ml 1X ONCE NEB Last administered on 09:18; Start 02/05/17 at 09:15; Stop 02/05/17 at 09:16; Status DC Meropenem 1 gm/ Sodium Chloride 100 ml @ 200 mls/hr Q8HRS IV ; Start 02/05/17 at 14:00; Status UNV Vancomycin HCl (Vanco Per Pharmacy) 1 each PRN DAILY PRN MC SEE COMMENTS Last administered on 02/10/17 14:10; Start 02/05/17 at 11:30; Stop 02/11/17 at 08 :13; Status DC Levofloxacin/ Dextrose (Levaquin Per Pharmacy) 1 each PRN DAILY PRN MC SEE COMMENTS; Start 02/05/17 at 11:30; Stop 02/09/17 at 08:20; Status DC Vancomycin HCl 2 gm/Dextrose 500 ml @ 250 mls/hr 1X ONCE IV Last administered on 02/05/17 13:20; Start 02/05/17 at 12:00; Stop 02/05/17 at 13 :59; Status DC Meropenem (Merrem) 1 gm 1X ONCE IVP Last administered on 02/05/17 11:37; Start 02/05/17 at 12:00; Stop 02/05/17 at 19:17; Status DC Levofloxacin/ Dextrose 150 ml @ 100 mls/hr 1X ONCE IV Last administered on 11:38; Start 02/05/17 at 12:00; Stop 02/05/17 at 13:29; Status DC Methylprednisolone Sodium Succinate (SOLU-Medrol 125MG VIAL) 125 mg 1X ONCE IV Last administered on 02/05/17 12:06; Start 02/05/17 at 11:45; Stop at 11:59; Status DC Ondansetron HCl (Zofran) 4 mg PRN Q8HRS PRN IV NAUSEA/VOMITING; Start at 12:00; Stop 02/06/17 at 11:59; Status DC Sodium Chloride 1,000 ml @ 75 mls/hr [id number] IV Last administered on 16:24; Start 02/05/17 at 11:46; Stop 02/06/17 at 11:19; Status DC Acetaminophen (Tylenol) 650 mg PRN Q4HRS PRN PO FEVER Last administered on 03:34; Start 02/05/17 at 12:00; Stop 02/06/17 at 11:59; Status DC Albuterol/ Ipratropium (Duoneb) 3 ml RTQID NEB Last administered on 02/06/17 09:33; Start 02/05/17 at 12:00; Stop 02/06/17 at 11:59; Status DC Dobutamine HCl 2000 mg/Dextrose 250 ml @ 4.59 mls/hr CONT IV ; Start 02/05/17 at 12:00; Stop 02/05/17 at 13:17; Status DC Dobutamine HCl/ Dextrose 250 ml @ 18.375 mls/ hr CONT PRN IV SEE I/O RECORD; Start 02/05/17 at 13:15; Stop 02/15/17 at 13:19; Status DC Meropenem (Merrem) 1 gm Q8HRS IVP Last administered on 02/05/17 21:03; Start 02/05/17 at 21:00; Stop 02/05/17 at 21:53; Status DC Levofloxacin/ Dextrose 150 ml @ 100 mls/hr Q24H IV Last administered on 20:36; Start 02/06/17 at 12:00; Stop 02/09/17 at 08:24; Status DC Vancomycin HCl 1.75 gm/Dextrose/ Sodium Chloride 500 ml @ 250 mls/hr Q18H IV Last administered on 02/07/17 19:48; Start 02/06/17 at 07:00; Stop 02/08/17 at 13:27; Status DC Vancomycin HCl 1 each 1X ONCE MC Last administered on 02/07/17 00:30; Start 02/07/17 at 00:30; Stop 02/07/17 at 00:31; Status DC Methylprednisolone Sodium Succinate (SOLU-Medrol 40MG VIAL) 40 mg Q8HRS IV Last administered on 02/11/17 06:02; Start 02/05/17 at 16:00; Stop 02/11/17 at 13:17; Status DC Enoxaparin Sodium (Lovenox 40mg Syringe) 40 mg Q24H SQ Last administered on 16:24; Start 02/05/17 at 16:00; Stop 02/05/17 at 21:19; Status DC Aspirin (Children'S Aspirin) 81 mg DAILY PO Last administered on 02/08/17 08: 41; Start 02/06/17 at 09:00; Stop 02/12/17 at 09:29; Status DC Diltiazem HCl (Cardizem 24hr Cd) 120 mg QHS PO Last administered on 02/15/17 21:19; Start 02/05/17 at 21:00 Ferrous Sulfate (Feosol) 325 mg BID PO Last administered on 02/12/17 23:30; Start 02/05/17 at 21:00; Stop 02/13/17 at 08:13; Status DC Acetaminophen/ Hydrocodone Bitart (Lortab 7.5/325) 2 tab PRN Q6HRS PRN PO PAIN Last administered on 02/10/17 19:56; Start 02/05/17 at 17:15; Stop 02/14/17 at 16:52; Status DC Levothyroxine Sodium (Synthroid) 137 mcg DAILYAC PO Last administered on 08:33; Start 02/06/17 at 07:30; Stop 02/15/17 at 13:41; Status DC Warfarin Sodium (Coumadin) 5 mg DAILY16 PO Last administered on 02/07/17 17: 28; Start 02/05/17 at 22:00; Stop 02/08/17 at 09:53; Status DC Citalopram Hydrobromide (CeleXA) 40 mg DAILY PO Last administered on 08:34; Start 02/06/17 at 09:00 Glimepiride (Amaryl) 4 mg BIDWMEALS PO Last administered on 02/15/17 17:22; Start 02/05/17 at 17:30 Losartan Potassium (Cozaar) 25 mg DAILY PO ; Start 02/06/17 at 09:00; Stop at 11:22; Status DC Atorvastatin Calcium (Lipitor) 80 mg QHS PO Last administered on 02/15/17 21: 09; Start 02/05/17 at 21:00 Insulin Aspart (NovoLOG) 0-12 UNITS QIDACHS SQ Last administered on 02/15/17 21:18; Start 02/05/17 at 18:00 Norepinephrine Bitartrate 250 ml @ 0 mls/hr CONT PRN IV SEE I/O RECORD; Start 02/05/17 at 19:00; Stop 02/15/17 at 13:19; Status DC Albuterol/ Ipratropium (Duoneb) 3 ml STK-MED ONCE .ROUTE ; Start 02/05/17 at 19 :16; Stop 02/05/17 at 19:17; Status DC Meropenem (Merrem) 1 gm Q8HRS IVP Last administered on 02/08/17 05:33; Start 02/06/17 at 06:00; Stop 02/08/17 at 09:00; Status DC Warfarin Sodium (Coumadin Per Physician) 1 each PRN DAILY PRN MC SEE COMMENTS; Start 02/06/17 at 07:45; Status Cancel Lactobacillus Rhamnosus (Culturelle) 1 cap BID PO Last administered on 23:46; Start 02/06/17 at 09:00; Stop 02/14/17 at 12:42; Status DC Albuterol/ Ipratropium (Duoneb) 3 ml RTQID NEB Last administered on 02/13/17 07:54; Start 02/06/17 at 16:00; Stop 02/13/17 at 09:54; Status DC Alprazolam (Xanax) 0.5 mg PRN TID PRN PO ANXIETY / AGITATION Last administered on 02/12/17 23:30; Start 02/06/17 at 17:30; Stop 02/14/17 at 16:51; Status DC Metformin HCl (Glucophage) 500 mg BIDWMEALS PO Last administered on 02/12/17 18:12; Start 02/07/17 at 12:00; Stop 02/13/17 at 03:02; Status DC Polyethylene Glycol (miraLAX PACKET) 17 gm PRN DAILY PRN PO CONSTIPATION Last administered on 02/07/17 21:29; Start 02/07/17 at 20:00 Alteplase, Recombinant (Cathflo) 2 mg 1X ONCE INT CAT Last administered on 07:32; Start 02/08/17 at 08:00; Stop 02/08/17 at 08:01; Status DC Pantoprazole Sodium 80 mg/ Sodium Chloride 100 ml @ 10 mls/hr Q10H IV Last administered on 02/13/17 03:42; Start 02/08/17 at 13:30; Stop 02/13/17 at 15 :21; Status DC Vancomycin HCl 1.75 gm/Dextrose/ Sodium Chloride 500 ml @ 250 mls/hr Q18H IV Last administered on 02/11/17 02:15; Start 02/08/17 at 21:00; Stop 02/11/17 at 08:15; Status DC Digoxin (Lanoxin) 500 mcg 1X ONCE IV Last administered on 02/08/17 18:30; Start 02/08/17 at 18:15; Stop 02/08/17 at 18:26; Status DC Digoxin (Lanoxin) 250 mcg 1X ONCE IV Last administered on 02/08/17 19:56; Start 02/08/17 at 19:45; Stop 02/08/17 at 19:46; Status DC Fentanyl Citrate (Fentanyl 2ml Vial) 50 mcg PRN Q3HRS PRN IV PAIN Last administered on 02/08/17 21:09; Start 02/08/17 at 20:30 Albumin Human 500 ml @ 125 mls/hr 1X ONCE IV Last administered on 02/08/17 23:38; Start 02/08/17 at 22:00; Stop 02/09/17 at 01:59; Status DC Phytonadione 10 mg/Sodium Chloride 51 ml @ 102 mls/hr 1X ONCE IV Last administered on 02/09/17 07:24; Start 02/09/17 at 08:00; Stop 02/09/17 at 08 :29; Status DC Throat Lozenges (Chloraseptic) 1 spray PRN Q2HR PRN PO SORE THROAT Last administered on 02/15/17 21:30; Start 02/09/17 at 08:45 Digoxin (Lanoxin) 125 mcg 1X ONCE IV Last administered on 02/10/17 13:02; Start 02/10/17 at 12:15; Stop 02/10/17 at 12:16; Status DC Insulin Aspart (NovoLOG) 6 units Q6HRS SQ Last administered on 02/11/17 06:20 ; Start 02/10/17 at 15:00; Stop 02/11/17 at 11:54; Status DC Sodium Chloride (Saline Mist Nasal) 1 nara PRN Q1HR PRN NS NASAL CONGESTION; Start 02/10/17 at 17:30 Vancomycin HCl 1 each 1X ONCE MC ; Start 02/11/17 at 20:30; Stop 02/11/17 at 20:31; Status Cancel Insulin Aspart (NovoLOG) 10 units Q6HRS SQ Last administered on 02/13/17 11: 26; Start 02/11/17 at 12:00; Stop 02/13/17 at 14:10; Status DC Methylprednisolone Sodium Succinate (SOLU-Medrol 40MG VIAL) 40 mg DAILY IV Last administered on 02/13/17 08:13; Start 02/12/17 at 09:00; Stop 02/13/17 at 09:54; Status DC Sodium Chloride 1,000 ml @ 85 mls/hr [id number] IV Last administered on 14:21; Start 02/11/17 at 14:00; Stop 02/12/17 at 01:45; Status DC Artificial Tears (Artificial Tears) 1 drop PRN Q15MIN PRN OU DRY EYE; Start at 19:15 Phytonadione (Vitamin K Ampule) 5 mg 1X ONCE SQ Last administered on 11:32; Start 02/12/17 at 09:45; Stop 02/12/17 at 09:46; Status DC Info 1 each PRN DAILY PRN MC SEE COMMENTS Last administered on 02/14/17 12:35 ; Start 02/12/17 at 09:45; Stop 02/15/17 at 14:00; Status DC Sodium Chloride 60 meq/Potassium Chloride 25 meq/ Potassium Phosphate 13.6 mmol/ Magnesium Sulfate 5 meq/ Calcium Gluconate 10 meq/ Multivitamins 10 ml/Chromium / Copper/Manganese/ Seleni/Zn 1 ml/ Potassium Acetate 25 meq/Total Parenteral Nutrition/Amino Acids/Dextrose/ Fat Emuls... 1,512 ml @ 63 mls/hr TPN CONT IV Last administered on 02/12/17 23:32; Start 02/12/17 at 22:00; Stop at 21:59; Status DC Digoxin (Lanoxin) 250 mcg DAILY IV Last administered on 02/15/17 08:35; Start 02/12/17 at 14:30; Stop 02/16/17 at 07:14; Status DC Hydrocortisone Sodium Succinate (Solu-CORTEF) 125 mg 1X ONCE IV Last administered on 02/12/17 23:20; Start 02/12/17 at 16:15; Stop 02/12/17 at 16 :16; Status DC Diphenhydramine HCl (Benadryl) 50 mg 1X ONCE IVP Last administered on 23:21; Start 02/12/17 at 16:15; Stop 02/12/17 at 16:16; Status DC Famotidine (Pepcid Vial) 40 mg 1X ONCE IVP Last administered on 02/12/17 23: 21; Start 02/12/17 at 16:15; Stop 02/12/17 at 16:16; Status DC Diphenhydramine HCl (Benadryl) 25 mg 1X ONCE IVP Last administered on 23:47; Start 02/12/17 at 18:15; Stop 02/12/17 at 18:16; Status DC Iohexol (Omnipaque 300 Mg/ml) 90 ml 1X ONCE IV Last administered on 03:13; Start 02/13/17 at 03:30; Stop 02/13/17 at 03:31; Status DC Metformin HCl (Glucophage) 500 mg BIDWMEALS PO Last administered on 02/15/17 17:22; Start 02/15/17 at 08:00 Ferrous Sulfate 300 mg BID PO Last administered on 02/14/17 20:51; Start at 09:00 Albuterol/ Ipratropium (Duoneb) 3 ml Q4HRS NEB Last administered on 02/16/17 03:03; Start 02/13/17 at 12:00 Methylprednisolone Sodium Succinate (SOLU-Medrol 40MG VIAL) 60 mg Q8HRS IV Last administered on 02/16/17 06:35; Start 02/13/17 at 14:00 Potassium Chloride 25 meq/ Potassium Phosphate 13.6 mmol/Magnesium Sulfate 2.5 meq/ Calcium Gluconate 10 meq/ Multivitamins 10 ml/Chromium/ Copper/Manganese/ Seleni/Zn 1 ml/ Potassium Acetate 25 meq/Total Parenteral Nutrition/Amino Acids/ Dextrose/ Fat Emulsion Intravenous 1,512 ml @ 63 mls/hr TPN CONT IV Last administered on 02/13/17 22:12; Start 02/13/17 at 22:00; Stop 02/14/17 at 21 :59; Status DC Furosemide (Lasix) 40 mg 1X ONCE IVP Last administered on 02/13/17 13:41; Start 02/13/17 at 13:00; Stop 02/13/17 at 13:01; Status DC Lorazepam (Ativan) 0.5 mg PRN Q4HRS PRN IV ANXIETY / AGITATION Last administered on 02/16/17 03:15; Start 02/13/17 at 14:15; Stop 02/16/17 at 07 :14; Status DC Levothyroxine Sodium 75 mcg/ Sodium Chloride 5 ml @ 75 mls/hr DAILY IVP Last administered on 02/15/17 08:36; Start 02/13/17 at 15:00; Stop 02/15/17 at 13 :22; Status DC Insulin Aspart (NovoLOG) 15 units Q6HRS SQ Last administered on 02/14/17 12: 39; Start 02/13/17 at 18:00; Stop 02/14/17 at 14:13; Status DC Pantoprazole Sodium (PROTONIX VIAL for IV PUSH) 40 mg BIDAC IVP Last administered on 02/16/17 06:36; Start 02/13/17 at 16:30; Stop 02/16/17 at 07 :14; Status DC Potassium Chloride 40 meq/ Potassium Acetate 10 meq/Potassium Phosphate 13.6 mmol/Magnesium Sulfate 2.5 meq/ Calcium Gluconate 10 meq/ Multivitamins 10 ml/ Chromium/ Copper/Manganese/ Seleni/Zn 1 ml/ Total Parenteral Nutrition/Amino Acids/Dextrose/ Fat Emulsion Intravenous 1,512 ml @ 63 mls/hr TPN CONT IV Last administered on 02/14/17 22:17; Start 02/14/17 at 22:00; Stop 02/15/17 at 21:59; Status DC Insulin Aspart (NovoLOG) 20 units Q6HRS SQ Last administered on 02/15/17 17: 31; Start 02/14/17 at 18:00; Stop 02/15/17 at 23:52; Status DC Alprazolam (Xanax) 0.5 mg PRN Q8HRS PRN PO ANXIETY / AGITATION Last administered on 02/14/17 16:55; Start 02/14/17 at 17:00 Acetaminophen/ Hydrocodone Bitart (Lortab 7.5/325) 1 tab PRN Q6HRS PRN PO MILD PAIN Last administered on 02/15/17 21:02; Start 02/14/17 at 17:00 Acetaminophen/ Hydrocodone Bitart (Lortab 7.5/325) 2 tab PRN Q6HRS PRN PO MODERATE PAIN, SEVERE PAIN; Start 02/14/17 at 17:00 Acetaminophen (Tylenol) 650 mg PRN Q6HRS PRN PO Pain Last administered on 02/15 17:25; Start 02/15/17 at 10:45 Levothyroxine Sodium (Synthroid) 137 mcg DAILY06 PO Last administered on t 06:35; Start 02/16/17 at 06:00 Pantoprazole Sodium (Protonix) 40 mg BID PO ; Start 02/16/17 at 09:00; Status UNV Digoxin (Lanoxin) 250 mcg DAILY PO ; Start 02/16/17 at 09:00; Status UNV Insulin Aspart (NovoLOG) 10 units TIDAC SQ ; Start 02/16/17 at 07:30; Status UNV Active Scripts Active Reported Ferrous Sulfate 325 Mg Tablet 1 Tab PO BID LAST DOSE GIVEN: DATE:01/08/17 TIME:9:00 a.m. Warfarin Sodium 5 Mg Tablet 1 Tab PO DAILY 30 Days LAST DOSE GIVEN: DATE:01/08/17 TIME:2:00 p.m Levothyroxine Sodium 137 Mcg Tablet 137 Mcg PO DAILYAC LAST DOSE GIVEN: DATE:01/08/17 TIME:7:30 a.m. Furosemide 40 Mg Tablet 40 Mg PO DAILY LAST DOSE GIVEN: DATE:01/07/17 TIME:9:00 a.m. Aspirin 81 Mg Tab.chew 1 Tab PO DAILY LAST DOSE GIVEN: DATE:01/08/17 TIME:9:00 a.m. Hydrocodone-Apap 7.5-325 (Hydrocodone Bit/Acetaminophen) 1 Each Tablet 1-2 Tab PO PRN Q6HRS PRN Took at 12:30 today may take anytime as needed for pain every 4 hours Amaryl (Glimepiride) 4 Mg Tablet 1 Tab PO BID LAST DOSE GIVEN: DATE:01/08/17 TIME:9:00 a.m. Potassium Chloride 20 Meq Tab.er.prt 1 Tab PO WEEKLY Meds not given this hospital admission. May resume home medications as approved by Physician. TIME: 8:30 a.m. NEXT DOSE DUE: DATE: 12-28-15 TIME: 8:30 a.m. Metolazone 5 Mg Tablet 5 Mg PO WEEKLY Meds not given this hospital admission. May resume home medications as approved by Physician. TIME: 8:30 a.m. NEXT DOSE DUE: DATE: 12-28-15 TIME: 8:30 a.m. Lexapro (Escitalopram Oxalate) 10 Mg Tablet 20 Mg PO DAILY LAST DOSE GIVEN: DATE:01/08/17 TIME:9:00 a.m. NEXT DOSE DUE: DATE: 12-28-15 TIME: 8:30 a.m. Cardizem Cd (Diltiazem Hcl) 240 Mg Cap.er.24h 120 Mg PO HS LAST DOSE GIVEN: DATE:01/07/17 TIME:9:00 p.m. NEXT DOSE DUE: DATE: 12-27-15 TIME: 9:00 p.m. Losartan Potassium 100 Mg Tablet 25 Mg PO DAILY LAST DOSE GIVEN: DATE:01/07/17 TIME:9:00 a.m. Crestor (Rosuvastatin Calcium) 40 Mg Tablet 40 Mg PO QHS LAST DOSE GIVEN: DATE:01/07/17 TIME:9:00 p.m. NEXT DOSE DUE: DATE: 12-27-15 TIME: 9:00 p.m. Vitals/I & O Vital Sign - Last 24 Hours 02/15/17 02/15/17 02/15/17 02/15/17 07:22 07:22 07:50 08:01 Temp 97.5 97.5 Pulse 102 Resp 20 B/P (MAP) 146/59 (88) Pulse Ox 94 O2 Delivery Bi-pap BiPAP/CPAP BiPAP/CPAP O2 Flow Rate 3.0 3.0 02/15/17 02/15/17 02/15/17 02/15/17 08:35 10:37 14:58 16:01 Temp 97.9 97.9 97.9 97.9 Pulse 103 100 97 Resp 18 18 B/P (MAP) 136/56 129/81 (97) 132/57 (82) Pulse Ox 93 96 88 O2 Delivery Nasal Cannula Nasal Cannula BiPAP/CPAP O2 Flow Rate 3.0 3.0 02/15/17 02/15/17 02/15/17 02/15/17 19:00 20:00 20:03 21:00 Temp 97.9 97.9 Pulse 83 Resp 18 B/P (MAP) 133/61 (85) Pulse Ox 94 88 O2 Delivery Nasal Cannula Bi-pap BiPAP/CPAP O2 Flow Rate 3.0 3.0 3.0 02/15/17 02/15/17 02/15/17 02/15/17 21:02 21:19 22:02 22:23 Pulse 83 Resp 16 16 B/P (MAP) 133/61 Pulse Ox 95 93 O2 Delivery Nasal Cannula Nasal Cannula BiPAP/CPAP O2 Flow Rate 3.0 3.0 02/15/17 02/15/17 02/16/17 02/16/17 23:00 23:08 01:11 02:58 Temp 97.6 97.6 Pulse 101 Resp 18 B/P (MAP) 121/57 (78) Pulse Ox 91 95 95 95 O2 Delivery Nasal Cannula BiPAP/CPAP BiPAP/CPAP BiPAP/CPAP O2 Flow Rate 3.0 02/16/17 03:00 Temp 97.3 97.3 Pulse 104 Resp 18 B/P (MAP) 128/66 (86) Pulse Ox 94 O2 Delivery Nasal Cannula O2 Flow Rate 3.0 Intake and Output 02/15/17 02/15/17 02/16/17 14:59 22:59 06:59 Intake Total 300 ml 180 ml Output Total 650 ml Balance 300 ml -470 ml JUAN COOK MD Feb 16, 2017 07:19
[2017-02-16] MEDS: PANTOPRAZOLE 40 MG TABLET.DR. PO SCH ×2 (07:23→17:15)
[2017-02-16] MEDS: FERROUS SULFATE ORAL 300 MG/5 ML SOLUTION. PO SCH ×2 (09:00→21:00)
[2017-02-16] MEDS: GLIMEPIRIDE 2 MG TABLET. PO SCH ×2 (09:06→17:15)
[2017-02-16] MEDS: metFORMIN 500 MG TABLET PO SCH ×2 (09:06→17:15)
[2017-02-16] MEDS: DIGOXIN 250 MCG TABLET. PO SCH (09:07)
[2017-02-16] MEDS: CITALOPRAM 20 MG TABLET. PO SCH (09:07)
[2017-02-16] MEDS: HYDROcodone/APAP 7.5/325MG 1 TAB TABLET PO PRN ×2 (09:08→22:04)
[2017-02-16] MEDS: INSULIN ASPART 300 UNITS/3 ML INSULN.PEN SQ SCH ×7 (09:21→22:08)
--- NOTE | 2017-02-16 10:19 | PDOC ---
Infectious Disease Note Subjective Subjective says feels ok, no n/v/abdo pain/sob Wants some ice chips Lt knee pain resolved ROS ROS O/w neg Vital Sign Vital Signs Vital Signs Date Time Temp Pulse Resp B/P (MAP) Pulse Ox O2 Delivery O2 Flow Rate FiO2 02/16/17 09:08 Nasal Cannula 02/16/17 09:07 87 137/76 02/16/17 07:24 97 02/16/17 07:00 96.4 18 3.0 96.4 Physical Exam PHYSICAL EXAM GEN: NAD , alert awake HEENT: oral mucosa dry, no icterus Cardiac: irregular, tachycardia Lungs: trace wheeze on right Abd: soft, non distended, nontender, no rebound , no guarding Ext: 1- 2+ pitting edema LE bilaterally- tubigrips, chronic venous stasis changes RLE, erythema in left knee and LLE has completely resolved SKIN: no rash Neuro: grossly nonfocal Labs Lab Laboratory Tests Test 02/15/17 11:15 02/15/17 16:38 02/15/17 20:30 02/16/17 03:45 Glucose (Fingerstick) 307 mg/dL (70-99) 275 mg/dL (70-99) 235 mg/dL (70-99) White Blood Count 16.1 x10^3/uL (4.0-11.0) Red Blood Count 3.36 x10^6/uL (3.50-5.40) Hemoglobin 9.7 g/dL (12.0-15.5) Hematocrit 31.1 % (36.0-47.0) Mean Corpuscular Volume 93 fL (79-100) Mean Corpuscular Hemoglobin 29 pg (25-35) Mean Corpuscular Hemoglobin Concent 31 g/dL (31-37) Red Cell Distribution Width 15.5 % (11.5-14.5) Platelet Count 279 x10^3/uL (140-400) Sodium Level 147 mmol/L (136-145) Potassium Level 5.0 mmol/L (3.5-5.1) Chloride Level 108 mmol/L (98-107) Carbon Dioxide Level 36 mmol/L (21-32) Anion Gap 3 (6-14) Blood Urea Nitrogen 28 mg/dL (7-20) Creatinine 0.7 mg/dL (0.6-1.0) Estimated GFR (Cockcroft-Gault) 80.9 Glucose Level 228 mg/dL (70-99) Calcium Level 8.7 mg/dL (8.5-10.1) Test 02/16/17 07:40 Glucose (Fingerstick) 248 mg/dL (70-99) Objective Assessment Leukocytosis - on steroid Cough likely venous congestion, speech evaluating, now npo Anemia from gi bleed, gi following,got prbcs coagulopathy on warfarin Leucocytosis likely reactive,multifactorial Acute on chronic respiratory failure- likely multifactorial. improving Sepsis- likely multifactorial. resolved Blood culture + coag neg staph 6bottles, contaminant-recieved 7 days of IV Vanc, stopped yesterday COPD Acute on chronic diastolic congestive heart failure- Pulmonary HTN Atrial fibrillation Obstructive sleep apnea. Aortic stenosis. HTN Type 2 diabetes Hypothyroidism Generalized anxiety disorder Severe protein-calorie malnutrition HLD Plan Plan of Care Monitor off antibiotics pt remains at risk of aspiration continue supportive care ID to sign off DHARMESH BEE MD Feb 16, 2017 10:19
--- NOTE | 2017-02-16 10:29 | PDOC ---
PULMONARY PROGRESS NOTES Subjective c/o SOA Vitals Vital Signs Date Time Temp Pulse Resp B/P (MAP) Pulse Ox O2 Delivery O2 Flow Rate FiO2 02/16/17 09:08 Nasal Cannula 02/16/17 09:07 87 137/76 02/16/17 08:00 3.0 02/16/17 07:24 97 02/16/17 07:00 96.4 18 96.4 ROS: No Nausea, No Chest Pain, No Abdominal Pain, No Increase Cough General: Alert Lungs: Clear, Wheezing (improved) Cardiovascular: S1, S2 Abdomen: Soft, Other (obese) Neuro Exam: Alert Extremities: Other (2+edema) Labs Laboratory Tests Test 02/14/17 12:36 02/14/17 16:22 02/14/17 22:06 02/15/17 00:16 Glucose (Fingerstick) 269 mg/dL (70-99) 226 mg/dL (70-99) 409 mg/dL (70-99) 396 mg/dL (70-99) Test 02/15/17 05:25 02/15/17 05:30 02/15/17 07:54 02/15/17 11:15 Glucose (Fingerstick) 307 mg/dL (70-99) 269 mg/dL (70-99) 307 mg/dL (70-99) White Blood Count 11.1 x10^3/uL (4.0-11.0) Red Blood Count 2.96 x10^6/uL (3.50-5.40) Hemoglobin 8.5 g/dL (12.0-15.5) Hematocrit 27.3 % (36.0-47.0) Mean Corpuscular Volume 92 fL (79-100) Mean Corpuscular Hemoglobin 29 pg (25-35) Mean Corpuscular Hemoglobin Concent 31 g/dL (31-37) Red Cell Distribution Width 15.5 % (11.5-14.5) Platelet Count 230 x10^3/uL (140-400) Prothrombin Time 14.8 SEC (11.7-14.0) Prothromb Time International Ratio 1.2 (0.8-1.1) Sodium Level 148 mmol/L (136-145) Potassium Level 4.6 mmol/L (3.5-5.1) Chloride Level 109 mmol/L (98-107) Carbon Dioxide Level 39 mmol/L (21-32) Anion Gap 0 (6-14) Blood Urea Nitrogen 28 mg/dL (7-20) Creatinine 0.7 mg/dL (0.6-1.0) Estimated GFR (Cockcroft-Gault) 80.9 Glucose Level 299 mg/dL (70-99) Calcium Level 8.6 mg/dL (8.5-10.1) Phosphorus Level 2.8 mg/dL (2.6-4.7) Magnesium Level 2.3 mg/dL (1.8-2.4) Test 02/15/17 16:38 02/15/17 20:30 02/16/17 03:45 02/16/17 07:40 Glucose (Fingerstick) 275 mg/dL (70-99) 235 mg/dL (70-99) 248 mg/dL (70-99) White Blood Count 16.1 x10^3/uL (4.0-11.0) Red Blood Count 3.36 x10^6/uL (3.50-5.40) Hemoglobin 9.7 g/dL (12.0-15.5) Hematocrit 31.1 % (36.0-47.0) Mean Corpuscular Volume 93 fL (79-100) Mean Corpuscular Hemoglobin 29 pg (25-35) Mean Corpuscular Hemoglobin Concent 31 g/dL (31-37) Red Cell Distribution Width 15.5 % (11.5-14.5) Platelet Count 279 x10^3/uL (140-400) Sodium Level 147 mmol/L (136-145) Potassium Level 5.0 mmol/L (3.5-5.1) Chloride Level 108 mmol/L (98-107) Carbon Dioxide Level 36 mmol/L (21-32) Anion Gap 3 (6-14) Blood Urea Nitrogen 28 mg/dL (7-20) Creatinine 0.7 mg/dL (0.6-1.0) Estimated GFR (Cockcroft-Gault) 80.9 Glucose Level 228 mg/dL (70-99) Calcium Level 8.7 mg/dL (8.5-10.1) Laboratory Tests Test 02/15/17 11:15 02/15/17 16:38 02/15/17 20:30 02/16/17 03:45 Glucose (Fingerstick) 307 mg/dL (70-99) 275 mg/dL (70-99) 235 mg/dL (70-99) White Blood Count 16.1 x10^3/uL (4.0-11.0) Red Blood Count 3.36 x10^6/uL (3.50-5.40) Hemoglobin 9.7 g/dL (12.0-15.5) Hematocrit 31.1 % (36.0-47.0) Mean Corpuscular Volume 93 fL (79-100) Mean Corpuscular Hemoglobin 29 pg (25-35) Mean Corpuscular Hemoglobin Concent 31 g/dL (31-37) Red Cell Distribution Width 15.5 % (11.5-14.5) Platelet Count 279 x10^3/uL (140-400) Sodium Level 147 mmol/L (136-145) Potassium Level 5.0 mmol/L (3.5-5.1) Chloride Level 108 mmol/L (98-107) Carbon Dioxide Level 36 mmol/L (21-32) Anion Gap 3 (6-14) Blood Urea Nitrogen 28 mg/dL (7-20) Creatinine 0.7 mg/dL (0.6-1.0) Estimated GFR (Cockcroft-Gault) 80.9 Glucose Level 228 mg/dL (70-99) Calcium Level 8.7 mg/dL (8.5-10.1) Test 02/16/17 07:40 Glucose (Fingerstick) 248 mg/dL (70-99) Medications Active Scripts Medications Dose Route/Sig Max Daily Dose Days Date Category Dose Instructions Ferrous Sulfate 325 Mg Tablet 1 Tab PO BID 01/08/17 Reported LAST DOSE GIVEN: DATE:01/08/17 TIME:9:00 a.m. Warfarin Sodium 5 Mg Tablet 1 Tab PO DAILY 30 01/08/17 Reported LAST DOSE GIVEN: DATE:01/08/17 TIME:2:00 p.m Levothyroxine Sodium 137 Mcg Tablet 137 Mcg PO DAILYAC 01/04/17 Reported LAST DOSE GIVEN: DATE:01/08/17 TIME:7:30 a.m. Furosemide 40 Mg Tablet 40 Mg PO DAILY 01/04/17 Reported LAST DOSE GIVEN: DATE:01/07/17 TIME:9:00 a.m. Aspirin 81 Mg Tab.chew 1 Tab PO DAILY 11/16/16 Reported LAST DOSE GIVEN: DATE:01/08/17 TIME:9:00 a.m. Hydrocodone-Apap 7.5-325 (Hydrocodone Bit/Acetaminophen) 1 Each Tablet 1-2 Tab PO PRN Q6HRS PRN 12/26/15 Reported Took at 12:30 today may take anytime as needed for pain every 4 hours Amaryl (Glimepiride) 4 Mg Tablet 1 Tab PO BID 12/16/15 Reported LAST DOSE GIVEN: DATE:01/08/17 TIME:9:00 a.m. Potassium Chloride 20 Meq Tab.er.prt 1 Tab PO WEEKLY 04/17/15 Reported Meds not given this hospital admission. May resume home medications as approved by Physician. TIME: 8:30 a.m. NEXT DOSE DUE: DATE: 12-28-15 TIME: 8:30 a.m. Metolazone 5 Mg Tablet 5 Mg PO WEEKLY 04/16/15 Reported Meds not given this hospital admission. May resume home medications as approved by Physician. TIME: 8:30 a.m. NEXT DOSE DUE: DATE: 12-28-15 TIME: 8:30 a.m. Lexapro (Escitalopram Oxalate) 10 Mg Tablet 20 Mg PO DAILY 05/01/13 Reported LAST DOSE GIVEN: DATE:01/08/17 TIME:9:00 a.m. NEXT DOSE DUE: DATE: 12-28-15 TIME: 8:30 a.m. Cardizem Cd (Diltiazem Hcl) 240 Mg Cap.er.24h 120 Mg PO HS 05/01/13 Reported LAST DOSE GIVEN: DATE:01/07/17 TIME:9:00 p.m. NEXT DOSE DUE: DATE: 12-27-15 TIME: 9:00 p.m. Losartan Potassium 100 Mg Tablet 25 Mg PO DAILY 05/01/13 Reported LAST DOSE GIVEN: DATE:01/07/17 TIME:9:00 a.m. Crestor (Rosuvastatin Calcium) 40 Mg Tablet 40 Mg PO QHS 05/01/13 Reported LAST DOSE GIVEN: DATE:01/07/17 TIME:9:00 p.m. NEXT DOSE DUE: DATE: 12-27-15 TIME: 9:00 p.m. Impression . 1. Acute on chronic hypercapnic respiratory failure multifactorial / c/o SOA today, sats stable ? anxiety, get CXR 2. s/p Sepsis, per ID 3. JAYLIN 4. COPD with exacerbation 5. Moderate to severe protein-calorie malnutrition. 6. Abnormal chest x-ray 02/13 possible mild CHF 7. Acute Blood loss anemia 8. Coagulopathy 9. Morbid Obesity 10. Dysphagia Plan . BIPAP PRN NEBS STEROIDS TAPER LASIX PRN FOLLOW DYSPHAGIA DIET CXR TODAY D/W ALYSSA GRANDE MD Feb 16, 2017 10:29
[2017-02-16 11:00] VITALS: BP 131/59
--- NOTE | 2017-02-16 11:00 | PDOC ---
Subjective: Subjective: No stools/bleeding. Doesn't like texture of dysphagia diet. Objective: Objective: Reviewed w/ RN - no bleeding or stooling since rectal tube removed yesterday. Vital Signs: Vital Signs Date Time Temp Pulse Resp B/P (MAP) Pulse Ox O2 Delivery O2 Flow Rate FiO2 02/16/17 09:08 Nasal Cannula 02/16/17 09:07 87 137/76 02/16/17 08:00 3.0 02/16/17 07:24 97 02/16/17 07:00 96.4 18 96.4 Labs: Laboratory Tests Test 02/15/17 11:15 02/15/17 16:38 02/15/17 20:30 02/16/17 07:40 Glucose (Fingerstick) 307 mg/dL (70-99) 275 mg/dL (70-99) 235 mg/dL (70-99) 248 mg/dL (70-99) Imaging: CTA A/P IMPRESSION: 1. Limited study. No active extravasation is identified. 2. 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 3. 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 4. Renal artery stenosis is moderate on the right and mild on the left. 5. Atelectasis of the right lower lobe. Small to moderate pleural effusions on the right greater than left. Anasarca. Moderate cardiomegaly. PE: GEN: NAD LUNGS: nasal cannula HEART: RR ABD: S/ND/NT NEURO/PSYCH: A & O 3 A/P: Anemia - Hgb improved, off Coumadin Dark stools - resolved, rectal tube out -- Improved, continue same per GI. ARBEN PEREZ Feb 16, 2017 11:00
--- NOTE | 2017-02-16 11:31 | RAD ---
Portable chest, 02/16/2017: History: Dyspnea Comparison is made to a study from 02/13/2017. The patient positioning is more kyphotic than on the previous exam. A right PICC remains in place extending into the superior vena cava. There as been a previous median sternotomy. The heart is enlarged. There is calcific plaquing of the aorta. The pulmonary vascularity is mildly prominent. There are mild to moderate streaky bibasilar opacities compatible with atelectasis/infiltrate. These have partially cleared on the right. The patient's known pleural effusions are not radiographically visible. IMPRESSION: 1. Cardiomegaly with borderline vascular congestion. 2. Ongoing streaky bibasilar atelectasis/infiltrate with interval improvement on the right.
--- NOTE | 2017-02-16 12:23 | PDOC ---
PROGRESS NOTES Subjective Subjective Pt feeling better - energy better Still SOB Edema improving Feels chest tightness when anxious Pt is excited about advancing diet Objective Objective Vital Signs Date Time Temp Pulse Resp B/P (MAP) Pulse Ox O2 Delivery O2 Flow Rate FiO2 02/16/17 11:57 Nasal Cannula 3.0 02/16/17 11:00 96.6 83 18 131/59 (83) 90 96.6 Intake and Output 02/16/17 07:00 Intake Total 480 ml Output Total 650 ml Balance -170 ml Intake Oral 480 ml Output Urine Total 650 ml Physical Exam Physical Exam No changes in cardiac exam Assessment Assessment No changes to plan from cardiac standpoint. Patient is slowly improving Problems Medical Problems: (1) Acute on chronic congestive heart failure Status: Acute (2) COPD (chronic obstructive pulmonary disease) Status: Acute (3) Healthcare-associated pneumonia Status: Acute (4) Morbid obesity Status: Acute (5) Sepsis Status: Acute (6) Severe protein-calorie malnutrition Status: Acute (7) Urinary tract infection Status: Acute Comment Review of Relevant I have reviewed the following items donald (where applicable) has been applied. Labs Laboratory Tests Test 02/14/17 12:36 02/14/17 16:22 02/14/17 22:06 02/15/17 00:16 Glucose (Fingerstick) 269 mg/dL (70-99) 226 mg/dL (70-99) 409 mg/dL (70-99) 396 mg/dL (70-99) Test 02/15/17 05:25 02/15/17 05:30 02/15/17 07:54 02/15/17 11:15 Glucose (Fingerstick) 307 mg/dL (70-99) 269 mg/dL (70-99) 307 mg/dL (70-99) White Blood Count 11.1 x10^3/uL (4.0-11.0) Red Blood Count 2.96 x10^6/uL (3.50-5.40) Hemoglobin 8.5 g/dL (12.0-15.5) Hematocrit 27.3 % (36.0-47.0) Mean Corpuscular Volume 92 fL (79-100) Mean Corpuscular Hemoglobin 29 pg (25-35) Mean Corpuscular Hemoglobin Concent 31 g/dL (31-37) Red Cell Distribution Width 15.5 % (11.5-14.5) Platelet Count 230 x10^3/uL (140-400) Prothrombin Time 14.8 SEC (11.7-14.0) Prothromb Time International Ratio 1.2 (0.8-1.1) Sodium Level 148 mmol/L (136-145) Potassium Level 4.6 mmol/L (3.5-5.1) Chloride Level 109 mmol/L (98-107) Carbon Dioxide Level 39 mmol/L (21-32) Anion Gap 0 (6-14) Blood Urea Nitrogen 28 mg/dL (7-20) Creatinine 0.7 mg/dL (0.6-1.0) Estimated GFR (Cockcroft-Gault) 80.9 Glucose Level 299 mg/dL (70-99) Calcium Level 8.6 mg/dL (8.5-10.1) Phosphorus Level 2.8 mg/dL (2.6-4.7) Magnesium Level 2.3 mg/dL (1.8-2.4) Test 02/15/17 16:38 02/15/17 20:30 02/16/17 03:45 02/16/17 07:40 Glucose (Fingerstick) 275 mg/dL (70-99) 235 mg/dL (70-99) 248 mg/dL (70-99) White Blood Count 16.1 x10^3/uL (4.0-11.0) Red Blood Count 3.36 x10^6/uL (3.50-5.40) Hemoglobin 9.7 g/dL (12.0-15.5) Hematocrit 31.1 % (36.0-47.0) Mean Corpuscular Volume 93 fL (79-100) Mean Corpuscular Hemoglobin 29 pg (25-35) Mean Corpuscular Hemoglobin Concent 31 g/dL (31-37) Red Cell Distribution Width 15.5 % (11.5-14.5) Platelet Count 279 x10^3/uL (140-400) Sodium Level 147 mmol/L (136-145) Potassium Level 5.0 mmol/L (3.5-5.1) Chloride Level 108 mmol/L (98-107) Carbon Dioxide Level 36 mmol/L (21-32) Anion Gap 3 (6-14) Blood Urea Nitrogen 28 mg/dL (7-20) Creatinine 0.7 mg/dL (0.6-1.0) Estimated GFR (Cockcroft-Gault) 80.9 Glucose Level 228 mg/dL (70-99) Calcium Level 8.7 mg/dL (8.5-10.1) Test 02/16/17 10:56 Glucose (Fingerstick) 276 mg/dL (70-99) Laboratory Tests Test 02/15/17 16:38 02/15/17 20:30 02/16/17 03:45 02/16/17 07:40 Glucose (Fingerstick) 275 mg/dL (70-99) 235 mg/dL (70-99) 248 mg/dL (70-99) White Blood Count 16.1 x10^3/uL (4.0-11.0) Red Blood Count 3.36 x10^6/uL (3.50-5.40) Hemoglobin 9.7 g/dL (12.0-15.5) Hematocrit 31.1 % (36.0-47.0) Mean Corpuscular Volume 93 fL (79-100) Mean Corpuscular Hemoglobin 29 pg (25-35) Mean Corpuscular Hemoglobin Concent 31 g/dL (31-37) Red Cell Distribution Width 15.5 % (11.5-14.5) Platelet Count 279 x10^3/uL (140-400) Sodium Level 147 mmol/L (136-145) Potassium Level 5.0 mmol/L (3.5-5.1) Chloride Level 108 mmol/L (98-107) Carbon Dioxide Level 36 mmol/L (21-32) Anion Gap 3 (6-14) Blood Urea Nitrogen 28 mg/dL (7-20) Creatinine 0.7 mg/dL (0.6-1.0) Estimated GFR (Cockcroft-Gault) 80.9 Glucose Level 228 mg/dL (70-99) Calcium Level 8.7 mg/dL (8.5-10.1) Test 02/16/17 10:56 Glucose (Fingerstick) 276 mg/dL (70-99) Microbiology 02/05/17 Blood Culture - Final, Complete NO GROWTH AFTER 5 DAYS 02/05/17 Urine Culture - Final, Complete 02/05/17 Urine Culture Result 1 (BISI) - Final, Complete Medications Current Medications Sodium Chloride 1,000 ml @ 620 mls/hr Q1H37M IV Last administered on 10:43; Start 02/05/17 at 09:05; Stop 02/05/17 at 12:05; Status DC Albuterol/ Ipratropium (Duoneb) 6 ml 1X ONCE NEB Last administered on 09:18; Start 02/05/17 at 09:15; Stop 02/05/17 at 09:16; Status DC Meropenem 1 gm/ Sodium Chloride 100 ml @ 200 mls/hr Q8HRS IV ; Start 02/05/17 at 14:00; Status UNV Vancomycin HCl (Vanco Per Pharmacy) 1 each PRN DAILY PRN MC SEE COMMENTS Last administered on 02/10/17 14:10; Start 02/05/17 at 11:30; Stop 02/11/17 at 08 :13; Status DC Levofloxacin/ Dextrose (Levaquin Per Pharmacy) 1 each PRN DAILY PRN MC SEE COMMENTS; Start 02/05/17 at 11:30; Stop 02/09/17 at 08:20; Status DC Vancomycin HCl 2 gm/Dextrose 500 ml @ 250 mls/hr 1X ONCE IV Last administered on 02/05/17 13:20; Start 02/05/17 at 12:00; Stop 02/05/17 at 13 :59; Status DC Meropenem (Merrem) 1 gm 1X ONCE IVP Last administered on 02/05/17 11:37; Start 02/05/17 at 12:00; Stop 02/05/17 at 19:17; Status DC Levofloxacin/ Dextrose 150 ml @ 100 mls/hr 1X ONCE IV Last administered on 11:38; Start 02/05/17 at 12:00; Stop 02/05/17 at 13:29; Status DC Methylprednisolone Sodium Succinate (SOLU-Medrol 125MG VIAL) 125 mg 1X ONCE IV Last administered on 02/05/17 12:06; Start 02/05/17 at 11:45; Stop at 11:59; Status DC Ondansetron HCl (Zofran) 4 mg PRN Q8HRS PRN IV NAUSEA/VOMITING; Start at 12:00; Stop 02/06/17 at 11:59; Status DC Sodium Chloride 1,000 ml @ 75 mls/hr [id number] IV Last administered on 16:24; Start 02/05/17 at 11:46; Stop 02/06/17 at 11:19; Status DC Acetaminophen (Tylenol) 650 mg PRN Q4HRS PRN PO FEVER Last administered on 03:34; Start 02/05/17 at 12:00; Stop 02/06/17 at 11:59; Status DC Albuterol/ Ipratropium (Duoneb) 3 ml RTQID NEB Last administered on 02/06/17 09:33; Start 02/05/17 at 12:00; Stop 02/06/17 at 11:59; Status DC Dobutamine HCl 2000 mg/Dextrose 250 ml @ 4.59 mls/hr CONT IV ; Start 02/05/17 at 12:00; Stop 02/05/17 at 13:17; Status DC Dobutamine HCl/ Dextrose 250 ml @ 18.375 mls/ hr CONT PRN IV SEE I/O RECORD; Start 02/05/17 at 13:15; Stop 02/15/17 at 13:19; Status DC Meropenem (Merrem) 1 gm Q8HRS IVP Last administered on 02/05/17 21:03; Start 02/05/17 at 21:00; Stop 02/05/17 at 21:53; Status DC Levofloxacin/ Dextrose 150 ml @ 100 mls/hr Q24H IV Last administered on 20:36; Start 02/06/17 at 12:00; Stop 02/09/17 at 08:24; Status DC Vancomycin HCl 1.75 gm/Dextrose/ Sodium Chloride 500 ml @ 250 mls/hr Q18H IV Last administered on 02/07/17 19:48; Start 02/06/17 at 07:00; Stop 02/08/17 at 13:27; Status DC Vancomycin HCl 1 each 1X ONCE MC Last administered on 02/07/17 00:30; Start 02/07/17 at 00:30; Stop 02/07/17 at 00:31; Status DC Methylprednisolone Sodium Succinate (SOLU-Medrol 40MG VIAL) 40 mg Q8HRS IV Last administered on 02/11/17 06:02; Start 02/05/17 at 16:00; Stop 02/11/17 at 13:17; Status DC Enoxaparin Sodium (Lovenox 40mg Syringe) 40 mg Q24H SQ Last administered on 16:24; Start 02/05/17 at 16:00; Stop 02/05/17 at 21:19; Status DC Aspirin (Children'S Aspirin) 81 mg DAILY PO Last administered on 02/08/17 08: 41; Start 02/06/17 at 09:00; Stop 02/12/17 at 09:29; Status DC Diltiazem HCl (Cardizem 24hr Cd) 120 mg QHS PO Last administered on 02/15/17 21:19; Start 02/05/17 at 21:00 Ferrous Sulfate (Feosol) 325 mg BID PO Last administered on 02/12/17 23:30; Start 02/05/17 at 21:00; Stop 02/13/17 at 08:13; Status DC Acetaminophen/ Hydrocodone Bitart (Lortab 7.5/325) 2 tab PRN Q6HRS PRN PO PAIN Last administered on 02/10/17 19:56; Start 02/05/17 at 17:15; Stop 02/14/17 at 16:52; Status DC Levothyroxine Sodium (Synthroid) 137 mcg DAILYAC PO Last administered on 08:33; Start 02/06/17 at 07:30; Stop 02/15/17 at 13:41; Status DC Warfarin Sodium (Coumadin) 5 mg DAILY16 PO Last administered on 02/07/17 17: 28; Start 02/05/17 at 22:00; Stop 02/08/17 at 09:53; Status DC Citalopram Hydrobromide (CeleXA) 40 mg DAILY PO Last administered on 09:07; Start 02/06/17 at 09:00 Glimepiride (Amaryl) 4 mg BIDWMEALS PO Last administered on 02/16/17 09:06; Start 02/05/17 at 17:30 Losartan Potassium (Cozaar) 25 mg DAILY PO ; Start 02/06/17 at 09:00; Stop at 11:22; Status DC Atorvastatin Calcium (Lipitor) 80 mg QHS PO Last administered on 02/15/17 21: 09; Start 02/05/17 at 21:00 Insulin Aspart (NovoLOG) 0-12 UNITS QIDACHS SQ Last administered on 02/16/17 12:10; Start 02/05/17 at 18:00 Norepinephrine Bitartrate 250 ml @ 0 mls/hr CONT PRN IV SEE I/O RECORD; Start 02/05/17 at 19:00; Stop 02/15/17 at 13:19; Status DC Albuterol/ Ipratropium (Duoneb) 3 ml STK-MED ONCE .ROUTE ; Start 02/05/17 at 19 :16; Stop 02/05/17 at 19:17; Status DC Meropenem (Merrem) 1 gm Q8HRS IVP Last administered on 02/08/17 05:33; Start 02/06/17 at 06:00; Stop 02/08/17 at 09:00; Status DC Warfarin Sodium (Coumadin Per Physician) 1 each PRN DAILY PRN MC SEE COMMENTS; Start 02/06/17 at 07:45; Status Cancel Lactobacillus Rhamnosus (Culturelle) 1 cap BID PO Last administered on 23:46; Start 02/06/17 at 09:00; Stop 02/14/17 at 12:42; Status DC Albuterol/ Ipratropium (Duoneb) 3 ml RTQID NEB Last administered on 02/13/17 07:54; Start 02/06/17 at 16:00; Stop 02/13/17 at 09:54; Status DC Alprazolam (Xanax) 0.5 mg PRN TID PRN PO ANXIETY / AGITATION Last administered on 02/12/17 23:30; Start 02/06/17 at 17:30; Stop 02/14/17 at 16:51; Status DC Metformin HCl (Glucophage) 500 mg BIDWMEALS PO Last administered on 02/12/17 18:12; Start 02/07/17 at 12:00; Stop 02/13/17 at 03:02; Status DC Polyethylene Glycol (miraLAX PACKET) 17 gm PRN DAILY PRN PO CONSTIPATION Last administered on 02/07/17 21:29; Start 02/07/17 at 20:00 Alteplase, Recombinant (Cathflo) 2 mg 1X ONCE INT CAT Last administered on 07:32; Start 02/08/17 at 08:00; Stop 02/08/17 at 08:01; Status DC Pantoprazole Sodium 80 mg/ Sodium Chloride 100 ml @ 10 mls/hr Q10H IV Last administered on 02/13/17 03:42; Start 02/08/17 at 13:30; Stop 02/13/17 at 15 :21; Status DC Vancomycin HCl 1.75 gm/Dextrose/ Sodium Chloride 500 ml @ 250 mls/hr Q18H IV Last administered on 02/11/17 02:15; Start 02/08/17 at 21:00; Stop 02/11/17 at 08:15; Status DC Digoxin (Lanoxin) 500 mcg 1X ONCE IV Last administered on 02/08/17 18:30; Start 02/08/17 at 18:15; Stop 02/08/17 at 18:26; Status DC Digoxin (Lanoxin) 250 mcg 1X ONCE IV Last administered on 02/08/17 19:56; Start 02/08/17 at 19:45; Stop 02/08/17 at 19:46; Status DC Fentanyl Citrate (Fentanyl 2ml Vial) 50 mcg PRN Q3HRS PRN IV PAIN Last administered on 02/08/17 21:09; Start 02/08/17 at 20:30 Albumin Human 500 ml @ 125 mls/hr 1X ONCE IV Last administered on 02/08/17 23:38; Start 02/08/17 at 22:00; Stop 02/09/17 at 01:59; Status DC Phytonadione 10 mg/Sodium Chloride 51 ml @ 102 mls/hr 1X ONCE IV Last administered on 02/09/17 07:24; Start 02/09/17 at 08:00; Stop 02/09/17 at 08 :29; Status DC Throat Lozenges (Chloraseptic) 1 spray PRN Q2HR PRN PO SORE THROAT Last administered on 02/15/17 21:30; Start 02/09/17 at 08:45 Digoxin (Lanoxin) 125 mcg 1X ONCE IV Last administered on 02/10/17 13:02; Start 02/10/17 at 12:15; Stop 02/10/17 at 12:16; Status DC Insulin Aspart (NovoLOG) 6 units Q6HRS SQ Last administered on 02/11/17 06:20 ; Start 02/10/17 at 15:00; Stop 02/11/17 at 11:54; Status DC Sodium Chloride (Saline Mist Nasal) 1 nara PRN Q1HR PRN NS NASAL CONGESTION; Start 02/10/17 at 17:30 Vancomycin HCl 1 each 1X ONCE MC ; Start 02/11/17 at 20:30; Stop 02/11/17 at 20:31; Status Cancel Insulin Aspart (NovoLOG) 10 units Q6HRS SQ Last administered on 02/13/17 11: 26; Start 02/11/17 at 12:00; Stop 02/13/17 at 14:10; Status DC Methylprednisolone Sodium Succinate (SOLU-Medrol 40MG VIAL) 40 mg DAILY IV Last administered on 02/13/17 08:13; Start 02/12/17 at 09:00; Stop 02/13/17 at 09:54; Status DC Sodium Chloride 1,000 ml @ 85 mls/hr [id number] IV Last administered on 14:21; Start 02/11/17 at 14:00; Stop 02/12/17 at 01:45; Status DC Artificial Tears (Artificial Tears) 1 drop PRN Q15MIN PRN OU DRY EYE; Start at 19:15 Phytonadione (Vitamin K Ampule) 5 mg 1X ONCE SQ Last administered on 11:32; Start 02/12/17 at 09:45; Stop 02/12/17 at 09:46; Status DC Info 1 each PRN DAILY PRN MC SEE COMMENTS Last administered on 02/14/17 12:35 ; Start 02/12/17 at 09:45; Stop 02/15/17 at 14:00; Status DC Sodium Chloride 60 meq/Potassium Chloride 25 meq/ Potassium Phosphate 13.6 mmol/ Magnesium Sulfate 5 meq/ Calcium Gluconate 10 meq/ Multivitamins 10 ml/Chromium / Copper/Manganese/ Seleni/Zn 1 ml/ Potassium Acetate 25 meq/Total Parenteral Nutrition/Amino Acids/Dextrose/ Fat Emuls... 1,512 ml @ 63 mls/hr TPN CONT IV Last administered on 02/12/17 23:32; Start 02/12/17 at 22:00; Stop at 21:59; Status DC Digoxin (Lanoxin) 250 mcg DAILY IV Last administered on 02/15/17 08:35; Start 02/12/17 at 14:30; Stop 02/16/17 at 07:14; Status DC Hydrocortisone Sodium Succinate (Solu-CORTEF) 125 mg 1X ONCE IV Last administered on 02/12/17 23:20; Start 02/12/17 at 16:15; Stop 02/12/17 at 16 :16; Status DC Diphenhydramine HCl (Benadryl) 50 mg 1X ONCE IVP Last administered on 23:21; Start 02/12/17 at 16:15; Stop 02/12/17 at 16:16; Status DC Famotidine (Pepcid Vial) 40 mg 1X ONCE IVP Last administered on 02/12/17 23: 21; Start 02/12/17 at 16:15; Stop 02/12/17 at 16:16; Status DC Diphenhydramine HCl (Benadryl) 25 mg 1X ONCE IVP Last administered on 23:47; Start 02/12/17 at 18:15; Stop 02/12/17 at 18:16; Status DC Iohexol (Omnipaque 300 Mg/ml) 90 ml 1X ONCE IV Last administered on 03:13; Start 02/13/17 at 03:30; Stop 02/13/17 at 03:31; Status DC Metformin HCl (Glucophage) 500 mg BIDWMEALS PO Last administered on 02/16/17 09:06; Start 02/15/17 at 08:00 Ferrous Sulfate 300 mg BID PO Last administered on 02/14/17 20:51; Start at 09:00 Albuterol/ Ipratropium (Duoneb) 3 ml Q4HRS NEB Last administered on 02/16/17 11:56; Start 02/13/17 at 12:00 Methylprednisolone Sodium Succinate (SOLU-Medrol 40MG VIAL) 60 mg Q8HRS IV Last administered on 02/16/17 06:35; Start 02/13/17 at 14:00; Stop 02/16/17 at 10:30; Status DC Potassium Chloride 25 meq/ Potassium Phosphate 13.6 mmol/Magnesium Sulfate 2.5 meq/ Calcium Gluconate 10 meq/ Multivitamins 10 ml/Chromium/ Copper/Manganese/ Seleni/Zn 1 ml/ Potassium Acetate 25 meq/Total Parenteral Nutrition/Amino Acids/ Dextrose/ Fat Emulsion Intravenous 1,512 ml @ 63 mls/hr TPN CONT IV Last administered on 02/13/17 22:12; Start 02/13/17 at 22:00; Stop 02/14/17 at 21 :59; Status DC Furosemide (Lasix) 40 mg 1X ONCE IVP Last administered on 02/13/17 13:41; Start 02/13/17 at 13:00; Stop 02/13/17 at 13:01; Status DC Lorazepam (Ativan) 0.5 mg PRN Q4HRS PRN IV ANXIETY / AGITATION Last administered on 02/16/17 03:15; Start 02/13/17 at 14:15; Stop 02/16/17 at 07 :14; Status DC Levothyroxine Sodium 75 mcg/ Sodium Chloride 5 ml @ 75 mls/hr DAILY IVP Last administered on 02/15/17 08:36; Start 02/13/17 at 15:00; Stop 02/15/17 at 13 :22; Status DC Insulin Aspart (NovoLOG) 15 units Q6HRS SQ Last administered on 02/14/17 12: 39; Start 02/13/17 at 18:00; Stop 02/14/17 at 14:13; Status DC Pantoprazole Sodium (PROTONIX VIAL for IV PUSH) 40 mg BIDAC IVP Last administered on 02/16/17 06:36; Start 02/13/17 at 16:30; Stop 02/16/17 at 07 :14; Status DC Potassium Chloride 40 meq/ Potassium Acetate 10 meq/Potassium Phosphate 13.6 mmol/Magnesium Sulfate 2.5 meq/ Calcium Gluconate 10 meq/ Multivitamins 10 ml/ Chromium/ Copper/Manganese/ Seleni/Zn 1 ml/ Total Parenteral Nutrition/Amino Acids/Dextrose/ Fat Emulsion Intravenous 1,512 ml @ 63 mls/hr TPN CONT IV Last administered on 02/14/17 22:17; Start 02/14/17 at 22:00; Stop 02/15/17 at 21:59; Status DC Insulin Aspart (NovoLOG) 20 units Q6HRS SQ Last administered on 02/15/17 17: 31; Start 02/14/17 at 18:00; Stop 02/15/17 at 23:52; Status DC Alprazolam (Xanax) 0.5 mg PRN Q8HRS PRN PO ANXIETY / AGITATION Last administered on 02/14/17 16:55; Start 02/14/17 at 17:00 Acetaminophen/ Hydrocodone Bitart (Lortab 7.5/325) 1 tab PRN Q6HRS PRN PO MILD PAIN Last administered on 02/16/17 09:08; Start 02/14/17 at 17:00 Acetaminophen/ Hydrocodone Bitart (Lortab 7.5/325) 2 tab PRN Q6HRS PRN PO MODERATE PAIN, SEVERE PAIN; Start 02/14/17 at 17:00 Acetaminophen (Tylenol) 650 mg PRN Q6HRS PRN PO Pain Last administered on 02/15 17:25; Start 02/15/17 at 10:45 Levothyroxine Sodium (Synthroid) 137 mcg DAILY06 PO Last administered on 06:35; Start 02/16/17 at 06:00 Pantoprazole Sodium (Protonix) 40 mg BIDAC PO ; Start 02/16/17 at 07:30 Digoxin (Lanoxin) 250 mcg DAILY PO Last administered on 02/16/17 09:07; Start 02/16/17 at 09:00 Insulin Aspart (NovoLOG) 10 units TIDAC SQ Last administered on 02/16/17 12: 11; Start 02/16/17 at 07:30 Methylprednisolone Sodium Succinate (SOLU-Medrol 40MG VIAL) 30 mg Q8HRS IV ; Start 02/16/17 at 14:00 Active Scripts Active Reported Ferrous Sulfate 325 Mg Tablet 1 Tab PO BID LAST DOSE GIVEN: DATE:01/08/17 TIME:9:00 a.m. Warfarin Sodium 5 Mg Tablet 1 Tab PO DAILY 30 Days LAST DOSE GIVEN: DATE:01/08/17 TIME:2:00 p.m Levothyroxine Sodium 137 Mcg Tablet 137 Mcg PO DAILYAC LAST DOSE GIVEN: DATE:01/08/17 TIME:7:30 a.m. Furosemide 40 Mg Tablet 40 Mg PO DAILY LAST DOSE GIVEN: DATE:01/07/17 TIME:9:00 a.m. Aspirin 81 Mg Tab.chew 1 Tab PO DAILY LAST DOSE GIVEN: DATE:01/08/17 TIME:9:00 a.m. Hydrocodone-Apap 7.5-325 (Hydrocodone Bit/Acetaminophen) 1 Each Tablet 1-2 Tab PO PRN Q6HRS PRN Took at 12:30 today may take anytime as needed for pain every 4 hours Amaryl (Glimepiride) 4 Mg Tablet 1 Tab PO BID LAST DOSE GIVEN: DATE:01/08/17 TIME:9:00 a.m. Potassium Chloride 20 Meq Tab.er.prt 1 Tab PO WEEKLY Meds not given this hospital admission. May resume home medications as approved by Physician. TIME: 8:30 a.m. NEXT DOSE DUE: DATE: 12-28-15 TIME: 8:30 a.m. Metolazone 5 Mg Tablet 5 Mg PO WEEKLY Meds not given this hospital admission. May resume home medications as approved by Physician. TIME: 8:30 a.m. NEXT DOSE DUE: DATE: 12-28-15 TIME: 8:30 a.m. Lexapro (Escitalopram Oxalate) 10 Mg Tablet 20 Mg PO DAILY LAST DOSE GIVEN: DATE:01/08/17 TIME:9:00 a.m. NEXT DOSE DUE: DATE: 12-28-15 TIME: 8:30 a.m. Cardizem Cd (Diltiazem Hcl) 240 Mg Cap.er.24h 120 Mg PO HS LAST DOSE GIVEN: DATE:01/07/17 TIME:9:00 p.m. NEXT DOSE DUE: DATE: 12-27-15 TIME: 9:00 p.m. Losartan Potassium 100 Mg Tablet 25 Mg PO DAILY LAST DOSE GIVEN: DATE:01/07/17 TIME:9:00 a.m. Crestor (Rosuvastatin Calcium) 40 Mg Tablet 40 Mg PO QHS LAST DOSE GIVEN: DATE:01/07/17 TIME:9:00 p.m. NEXT DOSE DUE: DATE: 12-27-15 TIME: 9:00 p.m. Vitals/I & O Vital Sign - Last 24 Hours 02/15/17 02/15/17 02/15/17 02/15/17 14:58 16:01 19:00 20:00 Temp 97.9 97.9 97.9 97.9 Pulse 97 83 Resp 18 18 B/P (MAP) 132/57 (82) 133/61 (85) Pulse Ox 96 88 94 O2 Delivery Nasal Cannula BiPAP/CPAP Nasal Cannula Bi-pap O2 Flow Rate 3.0 3.0 3.0 02/15/17 02/15/17 02/15/17 02/15/17 20:03 21:00 21:02 21:19 Pulse 83 Resp 16 B/P (MAP) 133/61 Pulse Ox 88 O2 Delivery BiPAP/CPAP Nasal Cannula O2 Flow Rate 3.0 3.0 02/15/17 02/15/17 02/15/17 02/15/17 22:02 22:23 23:00 23:08 Temp 97.6 97.6 Pulse 101 Resp 16 18 B/P (MAP) 121/57 (78) Pulse Ox 95 93 91 95 O2 Delivery Nasal Cannula BiPAP/CPAP Nasal Cannula BiPAP/CPAP O2 Flow Rate 3.0 3.0 02/16/17 02/16/17 02/16/17 02/16/17 01:11 02:58 03:00 07:00 Temp 97.3 96.4 97.3 96.4 Pulse 104 87 Resp 18 18 B/P (MAP) 128/66 (86) 137/70 (92) Pulse Ox 95 95 94 92 O2 Delivery BiPAP/CPAP BiPAP/CPAP Nasal Cannula Nasal Cannula O2 Flow Rate 3.0 3.0 02/16/17 02/16/17 02/16/17 02/16/17 07:24 08:00 09:07 09:08 Pulse 87 B/P (MAP) 137/76 Pulse Ox 97 O2 Delivery BiPAP/CPAP Nasal Cannula Nasal Cannula O2 Flow Rate 3.0 02/16/17 02/16/17 11:00 11:57 Temp 96.6 96.6 Pulse 83 Resp 18 B/P (MAP) 131/59 (83) Pulse Ox 90 O2 Delivery Nasal Cannula Nasal Cannula O2 Flow Rate 3.0 3.0 Intake and Output 02/15/17 02/15/17 02/16/17 15:00 23:00 07:00 Intake Total 300 ml 180 ml Output Total 650 ml Balance 300 ml -470 ml CRYSTAL ARCHULETA MD Feb 16, 2017 12:23
[2017-02-16] MEDS ORDERED: predniSONE 20 MG TABLET PO ONE (12:30)
[2017-02-16] MEDS ORDERED: FUROSEMIDE 40 MG/4 ML VIAL. IVP ONE (12:30)
[2017-02-16] MEDS ORDERED: FUROSEMIDE 20 MG/2 ML VIAL. IVP ONE (13:45)
[2017-02-16] MEDS ORDERED: methylPREDNISolone SOD SUCC PF 40 MG/ML VIAL. IV SCH (14:00)
[2017-02-16 15:58] VITALS: BP 145/64
[2017-02-16] MEDS ORDERED: DIGOXIN IV 500 MCG/2 ML AMPUL. IV ONE (16:45)
[2017-02-16 19:00] VITALS: BP 156/79
[2017-02-16] MEDS: ALPRAZolam 0.5 MG TABLET PO PRN (20:01)
[2017-02-16] MEDS: ATORVASTATIN CALCIUM 40 MG TABLET. PO SCH (22:02)
[2017-02-16] MEDS: PHENOL ORAL SPRAY 177ML BOTTLE. PO PRN (22:04)
[2017-02-16 23:00] VITALS: BP 160/80
[2017-02-17 03:00] VITALS: BP 130/53
[2017-02-17] MEDS: IPRATRPIUM/ALBUTEROL 0.5/2.5MG 3 ML NEBU. NEB SCH ×6 (03:16→23:31)
[2017-02-17 06:26] LABS: HEMOGLOBIN 8.2 g/dL (12.0-15.5); RED BLOOD COUNT 2.86 x10^6/uL (3.50-5.40); RED CELL DISTRIBUTION WIDTH 15.6 % (11.5-14.5); WHITE BLOOD COUNT 12.3 x10^3/uL (4.0-11.0)
[2017-02-17] MEDS: LEVOTHYROXINE 137 MCG TABLET PO SCH (06:39)
[2017-02-17 07:00] VITALS: BP 141/76
[2017-02-17 07:00] LABS: CALCIUM 8.2 mg/dL (8.5-10.1); CREATININE 0.7 mg/dL (0.6-1.0); GFR 80.9; POTASSIUM 4.4 mmol/L (3.5-5.1)
[2017-02-17] MEDS: PANTOPRAZOLE 40 MG TABLET.DR. PO SCH (07:43)
[2017-02-17] MEDS: metFORMIN 500 MG TABLET PO SCH ×2 (07:56→17:16)
[2017-02-17] MEDS: CITALOPRAM 20 MG TABLET. PO SCH (07:57)
[2017-02-17] MEDS: DIGOXIN 250 MCG TABLET. PO SCH (07:57)
[2017-02-17] MEDS: GLIMEPIRIDE 2 MG TABLET. PO SCH ×2 (07:57→17:16)
[2017-02-17] MEDS: FERROUS SULFATE ORAL 300 MG/5 ML SOLUTION. PO SCH ×3 (07:57→20:42)
[2017-02-17] MEDS: HYDROcodone/APAP 7.5/325MG 1 TAB TABLET PO PRN ×2 (07:58→17:30)
[2017-02-17] MEDS: PHENOL ORAL SPRAY 177ML BOTTLE. PO PRN (07:59)
[2017-02-17] MEDS: INSULIN ASPART 300 UNITS/3 ML INSULN.PEN SQ SCH ×7 (08:06→20:37)
--- NOTE | 2017-02-17 09:36 | PDOC ---
PULMONARY PROGRESS NOTES Subjective feels better Vitals Vital Signs Date Time Temp Pulse Resp B/P (MAP) Pulse Ox O2 Delivery O2 Flow Rate FiO2 02/17/17 09:19 Nasal Cannula 3.0 02/17/17 07:57 118 141/76 02/17/17 07:16 90 02/17/17 07:00 97.5 22 97.5 ROS: No Nausea, No Chest Pain, No Abdominal Pain, No Increase Cough General: Alert Lungs: Clear, Wheezing (resolved) Cardiovascular: S1, S2 Abdomen: Soft, Other (obese) Neuro Exam: Alert Extremities: Other (2+edema) Labs Laboratory Tests Test 02/15/17 11:15 02/15/17 16:38 02/15/17 20:30 02/16/17 03:45 Glucose (Fingerstick) 307 mg/dL (70-99) 275 mg/dL (70-99) 235 mg/dL (70-99) White Blood Count 16.1 x10^3/uL (4.0-11.0) Red Blood Count 3.36 x10^6/uL (3.50-5.40) Hemoglobin 9.7 g/dL (12.0-15.5) Hematocrit 31.1 % (36.0-47.0) Mean Corpuscular Volume 93 fL (79-100) Mean Corpuscular Hemoglobin 29 pg (25-35) Mean Corpuscular Hemoglobin Concent 31 g/dL (31-37) Red Cell Distribution Width 15.5 % (11.5-14.5) Platelet Count 279 x10^3/uL (140-400) Sodium Level 147 mmol/L (136-145) Potassium Level 5.0 mmol/L (3.5-5.1) Chloride Level 108 mmol/L (98-107) Carbon Dioxide Level 36 mmol/L (21-32) Anion Gap 3 (6-14) Blood Urea Nitrogen 28 mg/dL (7-20) Creatinine 0.7 mg/dL (0.6-1.0) Estimated GFR (Cockcroft-Gault) 80.9 Glucose Level 228 mg/dL (70-99) Calcium Level 8.7 mg/dL (8.5-10.1) Test 02/16/17 07:40 02/16/17 10:56 02/16/17 16:47 02/16/17 20:26 Glucose (Fingerstick) 248 mg/dL (70-99) 276 mg/dL (70-99) 144 mg/dL (70-99) 197 mg/dL (70-99) Test 02/17/17 06:15 02/17/17 07:31 White Blood Count 12.3 x10^3/uL (4.0-11.0) Red Blood Count 2.86 x10^6/uL (3.50-5.40) Hemoglobin 8.2 g/dL (12.0-15.5) Hematocrit 26.0 % (36.0-47.0) Mean Corpuscular Volume 91 fL (79-100) Mean Corpuscular Hemoglobin 29 pg (25-35) Mean Corpuscular Hemoglobin Concent 32 g/dL (31-37) Red Cell Distribution Width 15.6 % (11.5-14.5) Platelet Count 216 x10^3/uL (140-400) Sodium Level 148 mmol/L (136-145) Potassium Level 4.4 mmol/L (3.5-5.1) Chloride Level 107 mmol/L (98-107) Carbon Dioxide Level 38 mmol/L (21-32) Anion Gap 3 (6-14) Blood Urea Nitrogen 31 mg/dL (7-20) Creatinine 0.7 mg/dL (0.6-1.0) Estimated GFR (Cockcroft-Gault) 80.9 Glucose Level 221 mg/dL (70-99) Calcium Level 8.2 mg/dL (8.5-10.1) Glucose (Fingerstick) 225 mg/dL (70-99) Laboratory Tests Test 02/16/17 10:56 02/16/17 16:47 02/16/17 20:26 02/17/17 06:15 Glucose (Fingerstick) 276 mg/dL (70-99) 144 mg/dL (70-99) 197 mg/dL (70-99) White Blood Count 12.3 x10^3/uL (4.0-11.0) Red Blood Count 2.86 x10^6/uL (3.50-5.40) Hemoglobin 8.2 g/dL (12.0-15.5) Hematocrit 26.0 % (36.0-47.0) Mean Corpuscular Volume 91 fL (79-100) Mean Corpuscular Hemoglobin 29 pg (25-35) Mean Corpuscular Hemoglobin Concent 32 g/dL (31-37) Red Cell Distribution Width 15.6 % (11.5-14.5) Platelet Count 216 x10^3/uL (140-400) Sodium Level 148 mmol/L (136-145) Potassium Level 4.4 mmol/L (3.5-5.1) Chloride Level 107 mmol/L (98-107) Carbon Dioxide Level 38 mmol/L (21-32) Anion Gap 3 (6-14) Blood Urea Nitrogen 31 mg/dL (7-20) Creatinine 0.7 mg/dL (0.6-1.0) Estimated GFR (Cockcroft-Gault) 80.9 Glucose Level 221 mg/dL (70-99) Calcium Level 8.2 mg/dL (8.5-10.1) Test 02/17/17 07:31 Glucose (Fingerstick) 225 mg/dL (70-99) Medications Active Scripts Medications Dose Route/Sig Max Daily Dose Days Date Category Dose Instructions Ferrous Sulfate 325 Mg Tablet 1 Tab PO BID 01/08/17 Reported LAST DOSE GIVEN: DATE:01/08/17 TIME:9:00 a.m. Warfarin Sodium 5 Mg Tablet 1 Tab PO DAILY 30 01/08/17 Reported LAST DOSE GIVEN: DATE:01/08/17 TIME:2:00 p.m Levothyroxine Sodium 137 Mcg Tablet 137 Mcg PO DAILYAC 01/04/17 Reported LAST DOSE GIVEN: DATE:01/08/17 TIME:7:30 a.m. Furosemide 40 Mg Tablet 40 Mg PO DAILY 01/04/17 Reported LAST DOSE GIVEN: DATE:01/07/17 TIME:9:00 a.m. Aspirin 81 Mg Tab.chew 1 Tab PO DAILY 11/16/16 Reported LAST DOSE GIVEN: DATE:01/08/17 TIME:9:00 a.m. Hydrocodone-Apap 7.5-325 (Hydrocodone Bit/Acetaminophen) 1 Each Tablet 1-2 Tab PO PRN Q6HRS PRN 12/26/15 Reported Took at 12:30 today may take anytime as needed for pain every 4 hours Amaryl (Glimepiride) 4 Mg Tablet 1 Tab PO BID 12/16/15 Reported LAST DOSE GIVEN: DATE:01/08/17 TIME:9:00 a.m. Potassium Chloride 20 Meq Tab.er.prt 1 Tab PO WEEKLY 04/17/15 Reported Meds not given this hospital admission. May resume home medications as approved by Physician. TIME: 8:30 a.m. NEXT DOSE DUE: DATE: 12-28-15 TIME: 8:30 a.m. Metolazone 5 Mg Tablet 5 Mg PO WEEKLY 04/16/15 Reported Meds not given this hospital admission. May resume home medications as approved by Physician. TIME: 8:30 a.m. NEXT DOSE DUE: DATE: 12-28-15 TIME: 8:30 a.m. Lexapro (Escitalopram Oxalate) 10 Mg Tablet 20 Mg PO DAILY 05/01/13 Reported LAST DOSE GIVEN: DATE:01/08/17 TIME:9:00 a.m. NEXT DOSE DUE: DATE: 12-28-15 TIME: 8:30 a.m. Cardizem Cd (Diltiazem Hcl) 240 Mg Cap.er.24h 120 Mg PO HS 05/01/13 Reported LAST DOSE GIVEN: DATE:01/07/17 TIME:9:00 p.m. NEXT DOSE DUE: DATE: 12-27-15 TIME: 9:00 p.m. Losartan Potassium 100 Mg Tablet 25 Mg PO DAILY 05/01/13 Reported LAST DOSE GIVEN: DATE:01/07/17 TIME:9:00 a.m. Crestor (Rosuvastatin Calcium) 40 Mg Tablet 40 Mg PO QHS 05/01/13 Reported LAST DOSE GIVEN: DATE:01/07/17 TIME:9:00 p.m. NEXT DOSE DUE: DATE: 12-27-15 TIME: 9:00 p.m. Impression . 1. Acute on chronic hypercapnic respiratory failure multifactorial 2. s/p Sepsis, per ID 3. JAYLIN 4. COPD with exacerbation 5. Moderate to severe protein-calorie malnutrition. 6. Abnormal chest x-ray 02/13 possible mild CHF 7. Acute Blood loss anemia 8. Coagulopathy 9. Morbid Obesity 10. Dysphagia Plan . FEELS BETTER POST LASIX CXR 02/16 WITH MILD CHF BIPAP PRN NEBS STEROIDS TAPER LASIX PRN FOLLOW DYSPHAGIA DIET D/W RN/ PARA SKILL IN ALYSSA CRAFT MD Feb 17, 2017 09:36
--- NOTE | 2017-02-17 10:28 | PDOC ---
Subjective: Subjective: Sore throat "for a few days" - feels dry, ice chips help. Hurts to swallow but no difficulty swallowing. No BM. Objective: Objective: Reviewed other notes - ?DC tomorrow She refused iron Vital Signs: Vital Signs Date Time Temp Pulse Resp B/P (MAP) Pulse Ox O2 Delivery O2 Flow Rate FiO2 02/17/17 09:19 Nasal Cannula 3.0 02/17/17 07:57 118 141/76 02/17/17 07:16 90 02/17/17 07:00 97.5 22 97.5 Labs: Laboratory Tests Test 02/16/17 10:56 02/16/17 16:47 02/16/17 20:26 02/17/17 06:15 Glucose (Fingerstick) 276 mg/dL 144 mg/dL 197 mg/dL White Blood Count 12.3 x10^3/uL Red Blood Count 2.86 x10^6/uL Hemoglobin 8.2 g/dL Hematocrit 26.0 % Mean Corpuscular Volume 91 fL Mean Corpuscular Hemoglobin 29 pg Mean Corpuscular Hemoglobin Concent 32 g/dL Red Cell Distribution Width 15.6 % Platelet Count 216 x10^3/uL Sodium Level 148 mmol/L Potassium Level 4.4 mmol/L Chloride Level 107 mmol/L Carbon Dioxide Level 38 mmol/L Anion Gap 3 Blood Urea Nitrogen 31 mg/dL Creatinine 0.7 mg/dL Estimated GFR (Cockcroft-Gault) 80.9 Glucose Level 221 mg/dL Calcium Level 8.2 mg/dL Test 02/17/17 07:31 Glucose (Fingerstick) 225 mg/dL PE: GEN: NAD, was asleep LUNGS: nasal cannula HEART: tachycardic ABD: S/ND/NT NEURO/PSYCH: A & O 3 A/P: Anemia - improved/stable Sore throat -- Continue same. ARBEN PEREZ Feb 17, 2017 10:28
[2017-02-17 11:12] VITALS: BP 131/56
--- NOTE | 2017-02-17 12:59 | PDOC ---
PROGRESS NOTES Subjective Subjective Patient is slowly improving. Patient complained of episode of shortness of breath last evening. Patient is stable now on 3 L of oxygen with O2 sats above 90. Patient's hemoglobin slightly decreased 8.2 today. Patient also having mouth pain from thrush. Objective Objective Vital Signs Date Time Temp Pulse Resp B/P (MAP) Pulse Ox O2 Delivery O2 Flow Rate FiO2 02/17/17 12:34 93 Nasal Cannula 3.0 02/17/17 11:12 97.7 69 22 131/56 (81) 97.7 Intake and Output 02/17/17 06:59 Intake Total 840 ml Output Total 2 ml Balance 838 ml Intake Oral 840 ml Urine/Stool Mix 2 ml Physical Exam Abdomen: Normal bowel sounds Heart: Other (irregular rate and rhythm.) Extremities: Other (1+ edema) General: Alert Lungs: Clear to auscultation Assessment Assessment Problems Medical Problems: (1) Acute on chronic congestive heart failure Status: Acute (2) COPD (chronic obstructive pulmonary disease) Status: Acute (3) Healthcare-associated pneumonia Status: Acute (4) Morbid obesity Status: Acute (5) Sepsis Status: Acute (6) Severe protein-calorie malnutrition Status: Acute (7) Urinary tract infection Status: Acute 1. Acute on chronic respiratory failure. 2. Anemia due to GI bleed 3. Healthcare acquired pneumonia. 4. Sepsis syndrome 5. Chronic obstructive pulmonary disease with exacerbation. 6. Atrial fibrillation with rapid ventricular response. 7. Obstructive sleep apnea. 8. Aortic stenosis. 9. Morbid obesity. 10.Hypertension. 11.Type 2 diabetes. 12.Hypothyroidism. 13.Generalized anxiety disorder. 14.Severe protein-calorie malnutrition. 15.Urinary tract infection. 16. History of diastolic congestive heart failure possibly due to cor pulmonale 17.Status post recent left total knee revision 18.coagulopathy on coumadin 19.Blood culture + coag neg staph 1/6bottles, possible contaminant- see above 20.Pulmonary HTN 21 Chronic diastolic CHF Plan Plan of Care Plan to repeat chest x-ray continue PT and OT modalities treated for thrush Possible transfer to [facility] in a.m. Comment Review of Relevant I have reviewed the following items donald (where applicable) has been applied. Labs Laboratory Tests Test 02/15/17 16:38 02/15/17 20:30 02/16/17 03:45 02/16/17 07:40 Glucose (Fingerstick) 275 mg/dL (70-99) 235 mg/dL (70-99) 248 mg/dL (70-99) White Blood Count 16.1 x10^3/uL (4.0-11.0) Red Blood Count 3.36 x10^6/uL (3.50-5.40) Hemoglobin 9.7 g/dL (12.0-15.5) Hematocrit 31.1 % (36.0-47.0) Mean Corpuscular Volume 93 fL (79-100) Mean Corpuscular Hemoglobin 29 pg (25-35) Mean Corpuscular Hemoglobin Concent 31 g/dL (31-37) Red Cell Distribution Width 15.5 % (11.5-14.5) Platelet Count 279 x10^3/uL (140-400) Sodium Level 147 mmol/L (136-145) Potassium Level 5.0 mmol/L (3.5-5.1) Chloride Level 108 mmol/L (98-107) Carbon Dioxide Level 36 mmol/L (21-32) Anion Gap 3 (6-14) Blood Urea Nitrogen 28 mg/dL (7-20) Creatinine 0.7 mg/dL (0.6-1.0) Estimated GFR (Cockcroft-Gault) 80.9 Glucose Level 228 mg/dL (70-99) Calcium Level 8.7 mg/dL (8.5-10.1) Test 02/16/17 10:56 02/16/17 16:47 02/16/17 20:26 02/17/17 06:15 Glucose (Fingerstick) 276 mg/dL (70-99) 144 mg/dL (70-99) 197 mg/dL (70-99) White Blood Count 12.3 x10^3/uL (4.0-11.0) Red Blood Count 2.86 x10^6/uL (3.50-5.40) Hemoglobin 8.2 g/dL (12.0-15.5) Hematocrit 26.0 % (36.0-47.0) Mean Corpuscular Volume 91 fL (79-100) Mean Corpuscular Hemoglobin 29 pg (25-35) Mean Corpuscular Hemoglobin Concent 32 g/dL (31-37) Red Cell Distribution Width 15.6 % (11.5-14.5) Platelet Count 216 x10^3/uL (140-400) Sodium Level 148 mmol/L (136-145) Potassium Level 4.4 mmol/L (3.5-5.1) Chloride Level 107 mmol/L (98-107) Carbon Dioxide Level 38 mmol/L (21-32) Anion Gap 3 (6-14) Blood Urea Nitrogen 31 mg/dL (7-20) Creatinine 0.7 mg/dL (0.6-1.0) Estimated GFR (Cockcroft-Gault) 80.9 Glucose Level 221 mg/dL (70-99) Calcium Level 8.2 mg/dL (8.5-10.1) Test 02/17/17 07:31 02/17/17 10:47 Glucose (Fingerstick) 225 mg/dL (70-99) 195 mg/dL (70-99) Laboratory Tests Test 02/16/17 16:47 02/16/17 20:26 02/17/17 06:15 02/17/17 07:31 Glucose (Fingerstick) 144 mg/dL (70-99) 197 mg/dL (70-99) 225 mg/dL (70-99) White Blood Count 12.3 x10^3/uL (4.0-11.0) Red Blood Count 2.86 x10^6/uL (3.50-5.40) Hemoglobin 8.2 g/dL (12.0-15.5) Hematocrit 26.0 % (36.0-47.0) Mean Corpuscular Volume 91 fL (79-100) Mean Corpuscular Hemoglobin 29 pg (25-35) Mean Corpuscular Hemoglobin Concent 32 g/dL (31-37) Red Cell Distribution Width 15.6 % (11.5-14.5) Platelet Count 216 x10^3/uL (140-400) Sodium Level 148 mmol/L (136-145) Potassium Level 4.4 mmol/L (3.5-5.1) Chloride Level 107 mmol/L (98-107) Carbon Dioxide Level 38 mmol/L (21-32) Anion Gap 3 (6-14) Blood Urea Nitrogen 31 mg/dL (7-20) Creatinine 0.7 mg/dL (0.6-1.0) Estimated GFR (Cockcroft-Gault) 80.9 Glucose Level 221 mg/dL (70-99) Calcium Level 8.2 mg/dL (8.5-10.1) Test 02/17/17 10:47 Glucose (Fingerstick) 195 mg/dL (70-99) Microbiology 02/05/17 Blood Culture - Final, Complete NO GROWTH AFTER 5 DAYS 02/05/17 Urine Culture - Final, Complete 02/05/17 Urine Culture Result 1 (BISI) - Final, Complete Medications Current Medications Sodium Chloride 1,000 ml @ 620 mls/hr Q1H37M IV Last administered on 10:43; Start 02/05/17 at 09:05; Stop 02/05/17 at 12:05; Status DC Albuterol/ Ipratropium (Duoneb) 6 ml 1X ONCE NEB Last administered on 09:18; Start 02/05/17 at 09:15; Stop 02/05/17 at 09:16; Status DC Meropenem 1 gm/ Sodium Chloride 100 ml @ 200 mls/hr Q8HRS IV ; Start 02/05/17 at 14:00; Status UNV Vancomycin HCl (Vanco Per Pharmacy) 1 each PRN DAILY PRN MC SEE COMMENTS Last administered on 02/10/17 14:10; Start 02/05/17 at 11:30; Stop 02/11/17 at 08 :13; Status DC Levofloxacin/ Dextrose (Levaquin Per Pharmacy) 1 each PRN DAILY PRN MC SEE COMMENTS; Start 02/05/17 at 11:30; Stop 02/09/17 at 08:20; Status DC Vancomycin HCl 2 gm/Dextrose 500 ml @ 250 mls/hr 1X ONCE IV Last administered on 02/05/17 13:20; Start 02/05/17 at 12:00; Stop 02/05/17 at 13 :59; Status DC Meropenem (Merrem) 1 gm 1X ONCE IVP Last administered on 02/05/17 11:37; Start 02/05/17 at 12:00; Stop 02/05/17 at 19:17; Status DC Levofloxacin/ Dextrose 150 ml @ 100 mls/hr 1X ONCE IV Last administered on 11:38; Start 02/05/17 at 12:00; Stop 02/05/17 at 13:29; Status DC Methylprednisolone Sodium Succinate (SOLU-Medrol 125MG VIAL) 125 mg 1X ONCE IV Last administered on 02/05/17 12:06; Start 02/05/17 at 11:45; Stop at 11:59; Status DC Ondansetron HCl (Zofran) 4 mg PRN Q8HRS PRN IV NAUSEA/VOMITING; Start at 12:00; Stop 02/06/17 at 11:59; Status DC Sodium Chloride 1,000 ml @ 75 mls/hr [id number] IV Last administered on 16:24; Start 02/05/17 at 11:46; Stop 02/06/17 at 11:19; Status DC Acetaminophen (Tylenol) 650 mg PRN Q4HRS PRN PO FEVER Last administered on 03:34; Start 02/05/17 at 12:00; Stop 02/06/17 at 11:59; Status DC Albuterol/ Ipratropium (Duoneb) 3 ml RTQID NEB Last administered on 02/06/17 09:33; Start 02/05/17 at 12:00; Stop 02/06/17 at 11:59; Status DC Dobutamine HCl 2000 mg/Dextrose 250 ml @ 4.59 mls/hr CONT IV ; Start 02/05/17 at 12:00; Stop 02/05/17 at 13:17; Status DC Dobutamine HCl/ Dextrose 250 ml @ 18.375 mls/ hr CONT PRN IV SEE I/O RECORD; Start 02/05/17 at 13:15; Stop 02/15/17 at 13:19; Status DC Meropenem (Merrem) 1 gm Q8HRS IVP Last administered on 02/05/17 21:03; Start 02/05/17 at 21:00; Stop 02/05/17 at 21:53; Status DC Levofloxacin/ Dextrose 150 ml @ 100 mls/hr Q24H IV Last administered on 20:36; Start 02/06/17 at 12:00; Stop 02/09/17 at 08:24; Status DC Vancomycin HCl 1.75 gm/Dextrose/ Sodium Chloride 500 ml @ 250 mls/hr Q18H IV Last administered on 02/07/17 19:48; Start 02/06/17 at 07:00; Stop 02/08/17 at 13:27; Status DC Vancomycin HCl 1 each 1X ONCE MC Last administered on 02/07/17 00:30; Start 02/07/17 at 00:30; Stop 02/07/17 at 00:31; Status DC Methylprednisolone Sodium Succinate (SOLU-Medrol 40MG VIAL) 40 mg Q8HRS IV Last administered on 02/11/17 06:02; Start 02/05/17 at 16:00; Stop 02/11/17 at 13:17; Status DC Enoxaparin Sodium (Lovenox 40mg Syringe) 40 mg Q24H SQ Last administered on 16:24; Start 02/05/17 at 16:00; Stop 02/05/17 at 21:19; Status DC Aspirin (Children'S Aspirin) 81 mg DAILY PO Last administered on 02/08/17 08: 41; Start 02/06/17 at 09:00; Stop 02/12/17 at 09:29; Status DC Diltiazem HCl (Cardizem 24hr Cd) 120 mg QHS PO Last administered on 02/16/17 22:02; Start 02/05/17 at 21:00 Ferrous Sulfate (Feosol) 325 mg BID PO Last administered on 02/12/17 23:30; Start 02/05/17 at 21:00; Stop 02/13/17 at 08:13; Status DC Acetaminophen/ Hydrocodone Bitart (Lortab 7.5/325) 2 tab PRN Q6HRS PRN PO PAIN Last administered on 02/10/17 19:56; Start 02/05/17 at 17:15; Stop 02/14/17 at 16:52; Status DC Levothyroxine Sodium (Synthroid) 137 mcg DAILYAC PO Last administered on 08:33; Start 02/06/17 at 07:30; Stop 02/15/17 at 13:41; Status DC Warfarin Sodium (Coumadin) 5 mg DAILY16 PO Last administered on 02/07/17 17: 28; Start 02/05/17 at 22:00; Stop 02/08/17 at 09:53; Status DC Citalopram Hydrobromide (CeleXA) 40 mg DAILY PO Last administered on 07:57; Start 02/06/17 at 09:00 Glimepiride (Amaryl) 4 mg BIDWMEALS PO Last administered on 02/17/17 07:57; Start 02/05/17 at 17:30 Losartan Potassium (Cozaar) 25 mg DAILY PO ; Start 02/06/17 at 09:00; Stop at 11:22; Status DC Atorvastatin Calcium (Lipitor) 80 mg QHS PO Last administered on 02/16/17 22: 02; Start 02/05/17 at 21:00 Insulin Aspart (NovoLOG) 0-12 UNITS QIDACHS SQ Last administered on 02/17/17 12:06; Start 02/05/17 at 18:00 Norepinephrine Bitartrate 250 ml @ 0 mls/hr CONT PRN IV SEE I/O RECORD; Start 02/05/17 at 19:00; Stop 02/15/17 at 13:19; Status DC Albuterol/ Ipratropium (Duoneb) 3 ml STK-MED ONCE .ROUTE ; Start 02/05/17 at 19 :16; Stop 02/05/17 at 19:17; Status DC Meropenem (Merrem) 1 gm Q8HRS IVP Last administered on 02/08/17 05:33; Start 02/06/17 at 06:00; Stop 02/08/17 at 09:00; Status DC Warfarin Sodium (Coumadin Per Physician) 1 each PRN DAILY PRN MC SEE COMMENTS; Start 02/06/17 at 07:45; Status Cancel Lactobacillus Rhamnosus (Culturelle) 1 cap BID PO Last administered on 23:46; Start 02/06/17 at 09:00; Stop 02/14/17 at 12:42; Status DC Albuterol/ Ipratropium (Duoneb) 3 ml RTQID NEB Last administered on 02/13/17 07:54; Start 02/06/17 at 16:00; Stop 02/13/17 at 09:54; Status DC Alprazolam (Xanax) 0.5 mg PRN TID PRN PO ANXIETY / AGITATION Last administered on 02/12/17 23:30; Start 02/06/17 at 17:30; Stop 02/14/17 at 16:51; Status DC Metformin HCl (Glucophage) 500 mg BIDWMEALS PO Last administered on 02/12/17 18:12; Start 02/07/17 at 12:00; Stop 02/13/17 at 03:02; Status DC Polyethylene Glycol (miraLAX PACKET) 17 gm PRN DAILY PRN PO CONSTIPATION Last administered on 02/07/17 21:29; Start 02/07/17 at 20:00 Alteplase, Recombinant (Cathflo) 2 mg 1X ONCE INT CAT Last administered on 07:32; Start 02/08/17 at 08:00; Stop 02/08/17 at 08:01; Status DC Pantoprazole Sodium 80 mg/ Sodium Chloride 100 ml @ 10 mls/hr Q10H IV Last administered on 02/13/17 03:42; Start 02/08/17 at 13:30; Stop 02/13/17 at 15 :21; Status DC Vancomycin HCl 1.75 gm/Dextrose/ Sodium Chloride 500 ml @ 250 mls/hr Q18H IV Last administered on 02/11/17 02:15; Start 02/08/17 at 21:00; Stop 02/11/17 at 08:15; Status DC Digoxin (Lanoxin) 500 mcg 1X ONCE IV Last administered on 02/08/17 18:30; Start 02/08/17 at 18:15; Stop 02/08/17 at 18:26; Status DC Digoxin (Lanoxin) 250 mcg 1X ONCE IV Last administered on 02/08/17 19:56; Start 02/08/17 at 19:45; Stop 02/08/17 at 19:46; Status DC Fentanyl Citrate (Fentanyl 2ml Vial) 50 mcg PRN Q3HRS PRN IV PAIN Last administered on 02/08/17 21:09; Start 02/08/17 at 20:30 Albumin Human 500 ml @ 125 mls/hr 1X ONCE IV Last administered on 02/08/17 23:38; Start 02/08/17 at 22:00; Stop 02/09/17 at 01:59; Status DC Phytonadione 10 mg/Sodium Chloride 51 ml @ 102 mls/hr 1X ONCE IV Last administered on 02/09/17 07:24; Start 02/09/17 at 08:00; Stop 02/09/17 at 08 :29; Status DC Throat Lozenges (Chloraseptic) 1 spray PRN Q2HR PRN PO SORE THROAT Last administered on 02/17/17 07:59; Start 02/09/17 at 08:45 Digoxin (Lanoxin) 125 mcg 1X ONCE IV Last administered on 02/10/17 13:02; Start 02/10/17 at 12:15; Stop 02/10/17 at 12:16; Status DC Insulin Aspart (NovoLOG) 6 units Q6HRS SQ Last administered on 02/11/17 06:20 ; Start 02/10/17 at 15:00; Stop 02/11/17 at 11:54; Status DC Sodium Chloride (Saline Mist Nasal) 1 nara PRN Q1HR PRN NS NASAL CONGESTION; Start 02/10/17 at 17:30 Vancomycin HCl 1 each 1X ONCE MC ; Start 02/11/17 at 20:30; Stop 02/11/17 at 20:31; Status Cancel Insulin Aspart (NovoLOG) 10 units Q6HRS SQ Last administered on 02/13/17 11: 26; Start 02/11/17 at 12:00; Stop 02/13/17 at 14:10; Status DC Methylprednisolone Sodium Succinate (SOLU-Medrol 40MG VIAL) 40 mg DAILY IV Last administered on 02/13/17 08:13; Start 02/12/17 at 09:00; Stop 02/13/17 at 09:54; Status DC Sodium Chloride 1,000 ml @ 85 mls/hr [id number] IV Last administered on 14:21; Start 02/11/17 at 14:00; Stop 02/12/17 at 01:45; Status DC Artificial Tears (Artificial Tears) 1 drop PRN Q15MIN PRN OU DRY EYE; Start at 19:15 Phytonadione (Vitamin K Ampule) 5 mg 1X ONCE SQ Last administered on 11:32; Start 02/12/17 at 09:45; Stop 02/12/17 at 09:46; Status DC Info 1 each PRN DAILY PRN MC SEE COMMENTS Last administered on 02/14/17 12:35 ; Start 02/12/17 at 09:45; Stop 02/15/17 at 14:00; Status DC Sodium Chloride 60 meq/Potassium Chloride 25 meq/ Potassium Phosphate 13.6 mmol/ Magnesium Sulfate 5 meq/ Calcium Gluconate 10 meq/ Multivitamins 10 ml/Chromium / Copper/Manganese/ Seleni/Zn 1 ml/ Potassium Acetate 25 meq/Total Parenteral Nutrition/Amino Acids/Dextrose/ Fat Emuls... 1,512 ml @ 63 mls/hr TPN CONT IV Last administered on 02/12/17 23:32; Start 02/12/17 at 22:00; Stop at 21:59; Status DC Digoxin (Lanoxin) 250 mcg DAILY IV Last administered on 02/15/17 08:35; Start 02/12/17 at 14:30; Stop 02/16/17 at 07:14; Status DC Hydrocortisone Sodium Succinate (Solu-CORTEF) 125 mg 1X ONCE IV Last administered on 02/12/17 23:20; Start 02/12/17 at 16:15; Stop 02/12/17 at 16 :16; Status DC Diphenhydramine HCl (Benadryl) 50 mg 1X ONCE IVP Last administered on 23:21; Start 02/12/17 at 16:15; Stop 02/12/17 at 16:16; Status DC Famotidine (Pepcid Vial) 40 mg 1X ONCE IVP Last administered on 02/12/17 23: 21; Start 02/12/17 at 16:15; Stop 02/12/17 at 16:16; Status DC Diphenhydramine HCl (Benadryl) 25 mg 1X ONCE IVP Last administered on 23:47; Start 02/12/17 at 18:15; Stop 02/12/17 at 18:16; Status DC Iohexol (Omnipaque 300 Mg/ml) 90 ml 1X ONCE IV Last administered on 03:13; Start 02/13/17 at 03:30; Stop 02/13/17 at 03:31; Status DC Metformin HCl (Glucophage) 500 mg BIDWMEALS PO Last administered on 02/17/17 07:56; Start 02/15/17 at 08:00 Ferrous Sulfate 300 mg BID PO Last administered on 02/14/17 20:51; Start at 09:00 Albuterol/ Ipratropium (Duoneb) 3 ml Q4HRS NEB Last administered on 02/17/17 12:34; Start 02/13/17 at 12:00 Methylprednisolone Sodium Succinate (SOLU-Medrol 40MG VIAL) 60 mg Q8HRS IV Last administered on 02/16/17 06:35; Start 02/13/17 at 14:00; Stop 02/16/17 at 10:30; Status DC Potassium Chloride 25 meq/ Potassium Phosphate 13.6 mmol/Magnesium Sulfate 2.5 meq/ Calcium Gluconate 10 meq/ Multivitamins 10 ml/Chromium/ Copper/Manganese/ Seleni/Zn 1 ml/ Potassium Acetate 25 meq/Total Parenteral Nutrition/Amino Acids/ Dextrose/ Fat Emulsion Intravenous 1,512 ml @ 63 mls/hr TPN CONT IV Last administered on 02/13/17 22:12; Start 02/13/17 at 22:00; Stop 02/14/17 at 21 :59; Status DC Furosemide (Lasix) 40 mg 1X ONCE IVP Last administered on 02/13/17 13:41; Start 02/13/17 at 13:00; Stop 02/13/17 at 13:01; Status DC Lorazepam (Ativan) 0.5 mg PRN Q4HRS PRN IV ANXIETY / AGITATION Last administered on 02/16/17 03:15; Start 02/13/17 at 14:15; Stop 02/16/17 at 07 :14; Status DC Levothyroxine Sodium 75 mcg/ Sodium Chloride 5 ml @ 75 mls/hr DAILY IVP Last administered on 02/15/17 08:36; Start 02/13/17 at 15:00; Stop 02/15/17 at 13 :22; Status DC Insulin Aspart (NovoLOG) 15 units Q6HRS SQ Last administered on 02/14/17 12: 39; Start 02/13/17 at 18:00; Stop 02/14/17 at 14:13; Status DC Pantoprazole Sodium (PROTONIX VIAL for IV PUSH) 40 mg BIDAC IVP Last administered on 02/16/17 06:36; Start 02/13/17 at 16:30; Stop 02/16/17 at 07 :14; Status DC Potassium Chloride 40 meq/ Potassium Acetate 10 meq/Potassium Phosphate 13.6 mmol/Magnesium Sulfate 2.5 meq/ Calcium Gluconate 10 meq/ Multivitamins 10 ml/ Chromium/ Copper/Manganese/ Seleni/Zn 1 ml/ Total Parenteral Nutrition/Amino Acids/Dextrose/ Fat Emulsion Intravenous 1,512 ml @ 63 mls/hr TPN CONT IV Last administered on 02/14/17 22:17; Start 02/14/17 at 22:00; Stop 02/15/17 at 21:59; Status DC Insulin Aspart (NovoLOG) 20 units Q6HRS SQ Last administered on 02/15/17 17: 31; Start 02/14/17 at 18:00; Stop 02/15/17 at 23:52; Status DC Alprazolam (Xanax) 0.5 mg PRN Q8HRS PRN PO ANXIETY / AGITATION Last administered on 02/16/17 20:01; Start 02/14/17 at 17:00 Acetaminophen/ Hydrocodone Bitart (Lortab 7.5/325) 1 tab PRN Q6HRS PRN PO MILD PAIN Last administered on 02/17/17 07:58; Start 02/14/17 at 17:00 Acetaminophen/ Hydrocodone Bitart (Lortab 7.5/325) 2 tab PRN Q6HRS PRN PO MODERATE PAIN, SEVERE PAIN; Start 02/14/17 at 17:00 Acetaminophen (Tylenol) 650 mg PRN Q6HRS PRN PO Pain Last administered on 02/15 17:25; Start 02/15/17 at 10:45 Levothyroxine Sodium (Synthroid) 137 mcg DAILY06 PO Last administered on 06:39; Start 02/16/17 at 06:00 Pantoprazole Sodium (Protonix) 40 mg BIDAC PO Last administered on 02/17/17 07:43; Start 02/16/17 at 07:30; Stop 02/17/17 at 10:29; Status DC Digoxin (Lanoxin) 250 mcg DAILY PO Last administered on 02/17/17 07:57; Start 02/16/17 at 09:00 Insulin Aspart (NovoLOG) 10 units TIDAC SQ Last administered on 02/17/17 12: 07; Start 02/16/17 at 07:30 Methylprednisolone Sodium Succinate (SOLU-Medrol 40MG VIAL) 30 mg Q8HRS IV ; Start 02/16/17 at 14:00; Stop 02/16/17 at 14:00; Status DC Prednisone (Prednisone) 60 mg 1X ONCE PO Last administered on 02/16/17 12:45 ; Start 02/16/17 at 12:30; Stop 02/16/17 at 12:32; Status DC Furosemide (Lasix) 40 mg 1X ONCE IVP Last administered on 02/16/17 12:46; Start 02/16/17 at 12:30; Stop 02/16/17 at 12:32; Status DC Furosemide (Lasix) 20 mg 1X ONCE IVP ; Start 02/16/17 at 13:45; Stop at 13:47; Status DC Digoxin (Lanoxin) 250 mcg 1X ONCE IV Last administered on 02/16/17 17:17; Start 02/16/17 at 16:45; Stop 02/16/17 at 16:46; Status DC Pantoprazole Sodium (Protonix) 40 mg DAILYAC PO ; Start 02/18/17 at 07:30 Active Scripts Active Reported Ferrous Sulfate 325 Mg Tablet 1 Tab PO BID LAST DOSE GIVEN: DATE:01/08/17 TIME:9:00 a.m. Warfarin Sodium 5 Mg Tablet 1 Tab PO DAILY 30 Days LAST DOSE GIVEN: DATE:01/08/17 TIME:2:00 p.m Levothyroxine Sodium 137 Mcg Tablet 137 Mcg PO DAILYAC LAST DOSE GIVEN: DATE:01/08/17 TIME:7:30 a.m. Furosemide 40 Mg Tablet 40 Mg PO DAILY LAST DOSE GIVEN: DATE:01/07/17 TIME:9:00 a.m. Aspirin 81 Mg Tab.chew 1 Tab PO DAILY LAST DOSE GIVEN: DATE:01/08/17 TIME:9:00 a.m. Hydrocodone-Apap 7.5-325 (Hydrocodone Bit/Acetaminophen) 1 Each Tablet 1-2 Tab PO PRN Q6HRS PRN Took at 12:30 today may take anytime as needed for pain every 4 hours Amaryl (Glimepiride) 4 Mg Tablet 1 Tab PO BID LAST DOSE GIVEN: DATE:01/08/17 TIME:9:00 a.m. Potassium Chloride 20 Meq Tab.er.prt 1 Tab PO WEEKLY Meds not given this hospital admission. May resume home medications as approved by Physician. TIME: 8:30 a.m. NEXT DOSE DUE: DATE: 12-28-15 TIME: 8:30 a.m. Metolazone 5 Mg Tablet 5 Mg PO WEEKLY Meds not given this hospital admission. May resume home medications as approved by Physician. TIME: 8:30 a.m. NEXT DOSE DUE: DATE: 12-28-15 TIME: 8:30 a.m. Lexapro (Escitalopram Oxalate) 10 Mg Tablet 20 Mg PO DAILY LAST DOSE GIVEN: DATE:01/08/17 TIME:9:00 a.m. NEXT DOSE DUE: DATE: 12-28-15 TIME: 8:30 a.m. Cardizem Cd (Diltiazem Hcl) 240 Mg Cap.er.24h 120 Mg PO HS LAST DOSE GIVEN: DATE:01/07/17 TIME:9:00 p.m. NEXT DOSE DUE: DATE: 12-27-15 TIME: 9:00 p.m. Losartan Potassium 100 Mg Tablet 25 Mg PO DAILY LAST DOSE GIVEN: DATE:01/07/17 TIME:9:00 a.m. Crestor (Rosuvastatin Calcium) 40 Mg Tablet 40 Mg PO QHS LAST DOSE GIVEN: DATE:01/07/17 TIME:9:00 p.m. NEXT DOSE DUE: DATE: 12-27-15 TIME: 9:00 p.m. Vitals/I & O Vital Sign - Last 24 Hours 02/16/17 02/16/17 02/16/17 02/16/17 15:26 15:58 17:17 19:00 Temp 96.5 97.4 96.5 97.4 Pulse 99 99 86 Resp 18 22 B/P (MAP) 145/64 (91) 145/64 156/79 (104) Pulse Ox 92 88 O2 Delivery Nasal Cannula Nasal Cannula Nasal Cannula O2 Flow Rate 3.0 3.0 3.0 02/16/17 02/16/17 02/16/17 02/16/17 20:00 20:00 20:03 22:02 Pulse 86 B/P (MAP) 156/79 Pulse Ox 93 O2 Delivery Nasal Cannula BiPAP/CPAP O2 Flow Rate 20.0 3.0 02/16/17 02/16/17 02/16/17 02/16/17 22:04 23:00 23:04 23:13 Temp 97.1 97.1 Pulse 79 Resp 18 20 20 B/P (MAP) 160/80 (106) Pulse Ox 95 93 92 96 O2 Delivery BiPAP/CPAP Nasal Cannula BiPAP/CPAP O2 Flow Rate 30.0 3.0 02/17/17 02/17/17 02/17/17 02/17/17 01:00 03:00 03:16 05:05 Temp 97.7 97.7 Pulse 83 Resp 22 B/P (MAP) 130/53 (78) Pulse Ox 94 O2 Delivery BiPAP/CPAP Nasal Cannula BiPAP/CPAP BiPAP/CPAP O2 Flow Rate 3.0 02/17/17 02/17/17 02/17/17 02/17/17 07:00 07:16 07:45 07:57 Temp 97.5 97.5 Pulse 118 118 Resp 22 B/P (MAP) 141/76 (97) 141/76 Pulse Ox 90 90 O2 Delivery Nasal Cannula Nasal Cannula Nasal Cannula O2 Flow Rate 3.0 3.0 3.0 02/17/17 02/17/17 02/17/17 02/17/17 07:58 09:19 11:12 12:34 Temp 97.7 97.7 Pulse 69 Resp 22 B/P (MAP) 131/56 (81) Pulse Ox 90 93 O2 Delivery Nasal Cannula Nasal Cannula Nasal Cannula Nasal Cannula O2 Flow Rate 3.0 3.0 3.0 3.0 Intake and Output 02/16/17 02/16/17 02/17/17 14:59 22:59 06:59 Intake Total 660 ml 180 ml Output Total 2 ml Balance 660 ml 178 ml JUAN COOK MD Feb 17, 2017 12:58
[2017-02-17] MEDS: NYSTATIN 100,000 UNITS/ML 5 ML ORAL.SUSP. SWSW SCH ×3 (13:22→20:37)
[2017-02-17 15:00] VITALS: BP 123/45
--- NOTE | 2017-02-17 15:31 | RAD ---
Portable chest x-ray compared to similar examination dated 02/16/2017 for congestive heart failure. Findings: There are worsening bibasilar opacities concerning for progressive atelectasis or infiltrate. Small bilateral pleural effusions are suspected as well. Cardiomegaly is stable. Postsurgical changes of the mediastinum are again noted. Central vascular congestion is stable. Right PICC line is again noted. Impression: 1. Stable appearance of congestive heart failure. 2. Worsening bibasilar infiltrates, most notable on the right.
[2017-02-17 19:00] VITALS: BP 115/57
--- NOTE | 2017-02-17 19:13 | PDOC ---
PROGRESS NOTES Subjective Subjective Patient is feeling better today. No chest pains, no rest dyspnea. Objective Objective Vital Signs Date Time Temp Pulse Resp B/P (MAP) Pulse Ox O2 Delivery O2 Flow Rate FiO2 02/17/17 17:30 Nasal Cannula 3.0 02/17/17 16:30 96 02/17/17 15:00 97.7 87 22 123/45 (71) 97.7 Intake and Output 02/17/17 07:00 Intake Total 840 ml Output Total 2 ml Balance 838 ml Intake Oral 840 ml Urine/Stool Mix 2 ml Physical Exam Physical Exam No significant changes in cardiac exam Assessment Assessment Patient is improving. Agree with present plan. Problems Medical Problems: (1) Acute on chronic congestive heart failure Status: Acute (2) COPD (chronic obstructive pulmonary disease) Status: Acute (3) Healthcare-associated pneumonia Status: Acute (4) Morbid obesity Status: Acute (5) Sepsis Status: Acute (6) Severe protein-calorie malnutrition Status: Acute (7) Urinary tract infection Status: Acute Comment Review of Relevant I have reviewed the following items donald (where applicable) has been applied. Labs Laboratory Tests Test 02/15/17 20:30 02/16/17 03:45 02/16/17 07:40 02/16/17 10:56 Glucose (Fingerstick) 235 mg/dL (70-99) 248 mg/dL (70-99) 276 mg/dL (70-99) White Blood Count 16.1 x10^3/uL (4.0-11.0) Red Blood Count 3.36 x10^6/uL (3.50-5.40) Hemoglobin 9.7 g/dL (12.0-15.5) Hematocrit 31.1 % (36.0-47.0) Mean Corpuscular Volume 93 fL (79-100) Mean Corpuscular Hemoglobin 29 pg (25-35) Mean Corpuscular Hemoglobin Concent 31 g/dL (31-37) Red Cell Distribution Width 15.5 % (11.5-14.5) Platelet Count 279 x10^3/uL (140-400) Sodium Level 147 mmol/L (136-145) Potassium Level 5.0 mmol/L (3.5-5.1) Chloride Level 108 mmol/L (98-107) Carbon Dioxide Level 36 mmol/L (21-32) Anion Gap 3 (6-14) Blood Urea Nitrogen 28 mg/dL (7-20) Creatinine 0.7 mg/dL (0.6-1.0) Estimated GFR (Cockcroft-Gault) 80.9 Glucose Level 228 mg/dL (70-99) Calcium Level 8.7 mg/dL (8.5-10.1) Test 02/16/17 16:47 02/16/17 20:26 02/17/17 06:15 02/17/17 07:31 Glucose (Fingerstick) 144 mg/dL (70-99) 197 mg/dL (70-99) 225 mg/dL (70-99) White Blood Count 12.3 x10^3/uL (4.0-11.0) Red Blood Count 2.86 x10^6/uL (3.50-5.40) Hemoglobin 8.2 g/dL (12.0-15.5) Hematocrit 26.0 % (36.0-47.0) Mean Corpuscular Volume 91 fL (79-100) Mean Corpuscular Hemoglobin 29 pg (25-35) Mean Corpuscular Hemoglobin Concent 32 g/dL (31-37) Red Cell Distribution Width 15.6 % (11.5-14.5) Platelet Count 216 x10^3/uL (140-400) Sodium Level 148 mmol/L (136-145) Potassium Level 4.4 mmol/L (3.5-5.1) Chloride Level 107 mmol/L (98-107) Carbon Dioxide Level 38 mmol/L (21-32) Anion Gap 3 (6-14) Blood Urea Nitrogen 31 mg/dL (7-20) Creatinine 0.7 mg/dL (0.6-1.0) Estimated GFR (Cockcroft-Gault) 80.9 Glucose Level 221 mg/dL (70-99) Calcium Level 8.2 mg/dL (8.5-10.1) Test 02/17/17 10:47 02/17/17 16:29 Glucose (Fingerstick) 195 mg/dL (70-99) 169 mg/dL (70-99) Laboratory Tests Test 02/16/17 20:26 02/17/17 06:15 02/17/17 07:31 02/17/17 10:47 Glucose (Fingerstick) 197 mg/dL (70-99) 225 mg/dL (70-99) 195 mg/dL (70-99) White Blood Count 12.3 x10^3/uL (4.0-11.0) Red Blood Count 2.86 x10^6/uL (3.50-5.40) Hemoglobin 8.2 g/dL (12.0-15.5) Hematocrit 26.0 % (36.0-47.0) Mean Corpuscular Volume 91 fL (79-100) Mean Corpuscular Hemoglobin 29 pg (25-35) Mean Corpuscular Hemoglobin Concent 32 g/dL (31-37) Red Cell Distribution Width 15.6 % (11.5-14.5) Platelet Count 216 x10^3/uL (140-400) Sodium Level 148 mmol/L (136-145) Potassium Level 4.4 mmol/L (3.5-5.1) Chloride Level 107 mmol/L (98-107) Carbon Dioxide Level 38 mmol/L (21-32) Anion Gap 3 (6-14) Blood Urea Nitrogen 31 mg/dL (7-20) Creatinine 0.7 mg/dL (0.6-1.0) Estimated GFR (Cockcroft-Gault) 80.9 Glucose Level 221 mg/dL (70-99) Calcium Level 8.2 mg/dL (8.5-10.1) Test 02/17/17 16:29 Glucose (Fingerstick) 169 mg/dL (70-99) Microbiology 02/05/17 Blood Culture - Final, Complete NO GROWTH AFTER 5 DAYS 02/05/17 Urine Culture - Final, Complete 02/05/17 Urine Culture Result 1 (BISI) - Final, Complete Medications Current Medications Sodium Chloride 1,000 ml @ 620 mls/hr Q1H37M IV Last administered on 10:43; Start 02/05/17 at 09:05; Stop 02/05/17 at 12:05; Status DC Albuterol/ Ipratropium (Duoneb) 6 ml 1X ONCE NEB Last administered on 09:18; Start 02/05/17 at 09:15; Stop 02/05/17 at 09:16; Status DC Meropenem 1 gm/ Sodium Chloride 100 ml @ 200 mls/hr Q8HRS IV ; Start 02/05/17 at 14:00; Status UNV Vancomycin HCl (Vanco Per Pharmacy) 1 each PRN DAILY PRN MC SEE COMMENTS Last administered on 02/10/17 14:10; Start 02/05/17 at 11:30; Stop 02/11/17 at 08 :13; Status DC Levofloxacin/ Dextrose (Levaquin Per Pharmacy) 1 each PRN DAILY PRN MC SEE COMMENTS; Start 02/05/17 at 11:30; Stop 02/09/17 at 08:20; Status DC Vancomycin HCl 2 gm/Dextrose 500 ml @ 250 mls/hr 1X ONCE IV Last administered on 02/05/17 13:20; Start 02/05/17 at 12:00; Stop 02/05/17 at 13 :59; Status DC Meropenem (Merrem) 1 gm 1X ONCE IVP Last administered on 02/05/17 11:37; Start 02/05/17 at 12:00; Stop 02/05/17 at 19:17; Status DC Levofloxacin/ Dextrose 150 ml @ 100 mls/hr 1X ONCE IV Last administered on 11:38; Start 02/05/17 at 12:00; Stop 02/05/17 at 13:29; Status DC Methylprednisolone Sodium Succinate (SOLU-Medrol 125MG VIAL) 125 mg 1X ONCE IV Last administered on 02/05/17 12:06; Start 02/05/17 at 11:45; Stop at 11:59; Status DC Ondansetron HCl (Zofran) 4 mg PRN Q8HRS PRN IV NAUSEA/VOMITING; Start at 12:00; Stop 02/06/17 at 11:59; Status DC Sodium Chloride 1,000 ml @ 75 mls/hr [id number] IV Last administered on 16:24; Start 02/05/17 at 11:46; Stop 02/06/17 at 11:19; Status DC Acetaminophen (Tylenol) 650 mg PRN Q4HRS PRN PO FEVER Last administered on 03:34; Start 02/05/17 at 12:00; Stop 02/06/17 at 11:59; Status DC Albuterol/ Ipratropium (Duoneb) 3 ml RTQID NEB Last administered on 02/06/17 09:33; Start 02/05/17 at 12:00; Stop 02/06/17 at 11:59; Status DC Dobutamine HCl 2000 mg/Dextrose 250 ml @ 4.59 mls/hr CONT IV ; Start 02/05/17 at 12:00; Stop 02/05/17 at 13:17; Status DC Dobutamine HCl/ Dextrose 250 ml @ 18.375 mls/ hr CONT PRN IV SEE I/O RECORD; Start 02/05/17 at 13:15; Stop 02/15/17 at 13:19; Status DC Meropenem (Merrem) 1 gm Q8HRS IVP Last administered on 02/05/17 21:03; Start 02/05/17 at 21:00; Stop 02/05/17 at 21:53; Status DC Levofloxacin/ Dextrose 150 ml @ 100 mls/hr Q24H IV Last administered on 20:36; Start 02/06/17 at 12:00; Stop 02/09/17 at 08:24; Status DC Vancomycin HCl 1.75 gm/Dextrose/ Sodium Chloride 500 ml @ 250 mls/hr Q18H IV Last administered on 02/07/17 19:48; Start 02/06/17 at 07:00; Stop 02/08/17 at 13:27; Status DC Vancomycin HCl 1 each 1X ONCE MC Last administered on 02/07/17 00:30; Start 02/07/17 at 00:30; Stop 02/07/17 at 00:31; Status DC Methylprednisolone Sodium Succinate (SOLU-Medrol 40MG VIAL) 40 mg Q8HRS IV Last administered on 02/11/17 06:02; Start 02/05/17 at 16:00; Stop 02/11/17 at 13:17; Status DC Enoxaparin Sodium (Lovenox 40mg Syringe) 40 mg Q24H SQ Last administered on 16:24; Start 02/05/17 at 16:00; Stop 02/05/17 at 21:19; Status DC Aspirin (Children'S Aspirin) 81 mg DAILY PO Last administered on 02/08/17 08: 41; Start 02/06/17 at 09:00; Stop 02/12/17 at 09:29; Status DC Diltiazem HCl (Cardizem 24hr Cd) 120 mg QHS PO Last administered on 02/16/17 22:02; Start 02/05/17 at 21:00 Ferrous Sulfate (Feosol) 325 mg BID PO Last administered on 02/12/17 23:30; Start 02/05/17 at 21:00; Stop 02/13/17 at 08:13; Status DC Acetaminophen/ Hydrocodone Bitart (Lortab 7.5/325) 2 tab PRN Q6HRS PRN PO PAIN Last administered on 02/10/17 19:56; Start 02/05/17 at 17:15; Stop 02/14/17 at 16:52; Status DC Levothyroxine Sodium (Synthroid) 137 mcg DAILYAC PO Last administered on 08:33; Start 02/06/17 at 07:30; Stop 02/15/17 at 13:41; Status DC Warfarin Sodium (Coumadin) 5 mg DAILY16 PO Last administered on 02/07/17 17: 28; Start 02/05/17 at 22:00; Stop 02/08/17 at 09:53; Status DC Citalopram Hydrobromide (CeleXA) 40 mg DAILY PO Last administered on 07:57; Start 02/06/17 at 09:00 Glimepiride (Amaryl) 4 mg BIDWMEALS PO Last administered on 02/17/17 17:16; Start 02/05/17 at 17:30 Losartan Potassium (Cozaar) 25 mg DAILY PO ; Start 02/06/17 at 09:00; Stop at 11:22; Status DC Atorvastatin Calcium (Lipitor) 80 mg QHS PO Last administered on 02/16/17 22: 02; Start 02/05/17 at 21:00 Insulin Aspart (NovoLOG) 0-12 UNITS QIDACHS SQ Last administered on 02/17/17 17:34; Start 02/05/17 at 18:00 Norepinephrine Bitartrate 250 ml @ 0 mls/hr CONT PRN IV SEE I/O RECORD; Start 02/05/17 at 19:00; Stop 02/15/17 at 13:19; Status DC Albuterol/ Ipratropium (Duoneb) 3 ml STK-MED ONCE .ROUTE ; Start 02/05/17 at 19 :16; Stop 02/05/17 at 19:17; Status DC Meropenem (Merrem) 1 gm Q8HRS IVP Last administered on 02/08/17 05:33; Start 02/06/17 at 06:00; Stop 02/08/17 at 09:00; Status DC Warfarin Sodium (Coumadin Per Physician) 1 each PRN DAILY PRN MC SEE COMMENTS; Start 02/06/17 at 07:45; Status Cancel Lactobacillus Rhamnosus (Culturelle) 1 cap BID PO Last administered on 23:46; Start 02/06/17 at 09:00; Stop 02/14/17 at 12:42; Status DC Albuterol/ Ipratropium (Duoneb) 3 ml RTQID NEB Last administered on 02/13/17 07:54; Start 02/06/17 at 16:00; Stop 02/13/17 at 09:54; Status DC Alprazolam (Xanax) 0.5 mg PRN TID PRN PO ANXIETY / AGITATION Last administered on 02/12/17 23:30; Start 02/06/17 at 17:30; Stop 02/14/17 at 16:51; Status DC Metformin HCl (Glucophage) 500 mg BIDWMEALS PO Last administered on 02/12/17 18:12; Start 02/07/17 at 12:00; Stop 02/13/17 at 03:02; Status DC Polyethylene Glycol (miraLAX PACKET) 17 gm PRN DAILY PRN PO CONSTIPATION Last administered on 02/07/17 21:29; Start 02/07/17 at 20:00 Alteplase, Recombinant (Cathflo) 2 mg 1X ONCE INT CAT Last administered on 07:32; Start 02/08/17 at 08:00; Stop 02/08/17 at 08:01; Status DC Pantoprazole Sodium 80 mg/ Sodium Chloride 100 ml @ 10 mls/hr Q10H IV Last administered on 02/13/17 03:42; Start 02/08/17 at 13:30; Stop 02/13/17 at 15 :21; Status DC Vancomycin HCl 1.75 gm/Dextrose/ Sodium Chloride 500 ml @ 250 mls/hr Q18H IV Last administered on 02/11/17 02:15; Start 02/08/17 at 21:00; Stop 02/11/17 at 08:15; Status DC Digoxin (Lanoxin) 500 mcg 1X ONCE IV Last administered on 02/08/17 18:30; Start 02/08/17 at 18:15; Stop 02/08/17 at 18:26; Status DC Digoxin (Lanoxin) 250 mcg 1X ONCE IV Last administered on 02/08/17 19:56; Start 02/08/17 at 19:45; Stop 02/08/17 at 19:46; Status DC Fentanyl Citrate (Fentanyl 2ml Vial) 50 mcg PRN Q3HRS PRN IV PAIN Last administered on 02/08/17 21:09; Start 02/08/17 at 20:30 Albumin Human 500 ml @ 125 mls/hr 1X ONCE IV Last administered on 02/08/17 23:38; Start 02/08/17 at 22:00; Stop 02/09/17 at 01:59; Status DC Phytonadione 10 mg/Sodium Chloride 51 ml @ 102 mls/hr 1X ONCE IV Last administered on 02/09/17 07:24; Start 02/09/17 at 08:00; Stop 02/09/17 at 08 :29; Status DC Throat Lozenges (Chloraseptic) 1 spray PRN Q2HR PRN PO SORE THROAT Last administered on 02/17/17 07:59; Start 02/09/17 at 08:45 Digoxin (Lanoxin) 125 mcg 1X ONCE IV Last administered on 02/10/17 13:02; Start 02/10/17 at 12:15; Stop 02/10/17 at 12:16; Status DC Insulin Aspart (NovoLOG) 6 units Q6HRS SQ Last administered on 02/11/17 06:20 ; Start 02/10/17 at 15:00; Stop 02/11/17 at 11:54; Status DC Sodium Chloride (Saline Mist Nasal) 1 nara PRN Q1HR PRN NS NASAL CONGESTION; Start 02/10/17 at 17:30 Vancomycin HCl 1 each 1X ONCE MC ; Start 02/11/17 at 20:30; Stop 02/11/17 at 20:31; Status Cancel Insulin Aspart (NovoLOG) 10 units Q6HRS SQ Last administered on 02/13/17 11: 26; Start 02/11/17 at 12:00; Stop 02/13/17 at 14:10; Status DC Methylprednisolone Sodium Succinate (SOLU-Medrol 40MG VIAL) 40 mg DAILY IV Last administered on 02/13/17 08:13; Start 02/12/17 at 09:00; Stop 02/13/17 at 09:54; Status DC Sodium Chloride 1,000 ml @ 85 mls/hr [id number] IV Last administered on 14:21; Start 02/11/17 at 14:00; Stop 02/12/17 at 01:45; Status DC Artificial Tears (Artificial Tears) 1 drop PRN Q15MIN PRN OU DRY EYE; Start at 19:15 Phytonadione (Vitamin K Ampule) 5 mg 1X ONCE SQ Last administered on 11:32; Start 02/12/17 at 09:45; Stop 02/12/17 at 09:46; Status DC Info 1 each PRN DAILY PRN MC SEE COMMENTS Last administered on 02/14/17 12:35 ; Start 02/12/17 at 09:45; Stop 02/15/17 at 14:00; Status DC Sodium Chloride 60 meq/Potassium Chloride 25 meq/ Potassium Phosphate 13.6 mmol/ Magnesium Sulfate 5 meq/ Calcium Gluconate 10 meq/ Multivitamins 10 ml/Chromium / Copper/Manganese/ Seleni/Zn 1 ml/ Potassium Acetate 25 meq/Total Parenteral Nutrition/Amino Acids/Dextrose/ Fat Emuls... 1,512 ml @ 63 mls/hr TPN CONT IV Last administered on 02/12/17 23:32; Start 02/12/17 at 22:00; Stop at 21:59; Status DC Digoxin (Lanoxin) 250 mcg DAILY IV Last administered on 02/15/17 08:35; Start 02/12/17 at 14:30; Stop 02/16/17 at 07:14; Status DC Hydrocortisone Sodium Succinate (Solu-CORTEF) 125 mg 1X ONCE IV Last administered on 02/12/17 23:20; Start 02/12/17 at 16:15; Stop 02/12/17 at 16 :16; Status DC Diphenhydramine HCl (Benadryl) 50 mg 1X ONCE IVP Last administered on 23:21; Start 02/12/17 at 16:15; Stop 02/12/17 at 16:16; Status DC Famotidine (Pepcid Vial) 40 mg 1X ONCE IVP Last administered on 02/12/17 23: 21; Start 02/12/17 at 16:15; Stop 02/12/17 at 16:16; Status DC Diphenhydramine HCl (Benadryl) 25 mg 1X ONCE IVP Last administered on 23:47; Start 02/12/17 at 18:15; Stop 02/12/17 at 18:16; Status DC Iohexol (Omnipaque 300 Mg/ml) 90 ml 1X ONCE IV Last administered on 03:13; Start 02/13/17 at 03:30; Stop 02/13/17 at 03:31; Status DC Metformin HCl (Glucophage) 500 mg BIDWMEALS PO Last administered on 02/17/17 17:16; Start 02/15/17 at 08:00 Ferrous Sulfate 300 mg BID PO Last administered on 02/14/17 20:51; Start at 09:00 Albuterol/ Ipratropium (Duoneb) 3 ml Q4HRS NEB Last administered on 02/17/17 16:29; Start 02/13/17 at 12:00 Methylprednisolone Sodium Succinate (SOLU-Medrol 40MG VIAL) 60 mg Q8HRS IV Last administered on 02/16/17 06:35; Start 02/13/17 at 14:00; Stop 02/16/17 at 10:30; Status DC Potassium Chloride 25 meq/ Potassium Phosphate 13.6 mmol/Magnesium Sulfate 2.5 meq/ Calcium Gluconate 10 meq/ Multivitamins 10 ml/Chromium/ Copper/Manganese/ Seleni/Zn 1 ml/ Potassium Acetate 25 meq/Total Parenteral Nutrition/Amino Acids/ Dextrose/ Fat Emulsion Intravenous 1,512 ml @ 63 mls/hr TPN CONT IV Last administered on 02/13/17 22:12; Start 02/13/17 at 22:00; Stop 02/14/17 at 21 :59; Status DC Furosemide (Lasix) 40 mg 1X ONCE IVP Last administered on 02/13/17 13:41; Start 02/13/17 at 13:00; Stop 02/13/17 at 13:01; Status DC Lorazepam (Ativan) 0.5 mg PRN Q4HRS PRN IV ANXIETY / AGITATION Last administered on 02/16/17 03:15; Start 02/13/17 at 14:15; Stop 02/16/17 at 07 :14; Status DC Levothyroxine Sodium 75 mcg/ Sodium Chloride 5 ml @ 75 mls/hr DAILY IVP Last administered on 02/15/17 08:36; Start 02/13/17 at 15:00; Stop 02/15/17 at 13 :22; Status DC Insulin Aspart (NovoLOG) 15 units Q6HRS SQ Last administered on 02/14/17 12: 39; Start 02/13/17 at 18:00; Stop 02/14/17 at 14:13; Status DC Pantoprazole Sodium (PROTONIX VIAL for IV PUSH) 40 mg BIDAC IVP Last administered on 02/16/17 06:36; Start 02/13/17 at 16:30; Stop 02/16/17 at 07 :14; Status DC Potassium Chloride 40 meq/ Potassium Acetate 10 meq/Potassium Phosphate 13.6 mmol/Magnesium Sulfate 2.5 meq/ Calcium Gluconate 10 meq/ Multivitamins 10 ml/ Chromium/ Copper/Manganese/ Seleni/Zn 1 ml/ Total Parenteral Nutrition/Amino Acids/Dextrose/ Fat Emulsion Intravenous 1,512 ml @ 63 mls/hr TPN CONT IV Last administered on 02/14/17 22:17; Start 02/14/17 at 22:00; Stop 02/15/17 at 21:59; Status DC Insulin Aspart (NovoLOG) 20 units Q6HRS SQ Last administered on 02/15/17 17: 31; Start 02/14/17 at 18:00; Stop 02/15/17 at 23:52; Status DC Alprazolam (Xanax) 0.5 mg PRN Q8HRS PRN PO ANXIETY / AGITATION Last administered on 02/16/17 20:01; Start 02/14/17 at 17:00 Acetaminophen/ Hydrocodone Bitart (Lortab 7.5/325) 1 tab PRN Q6HRS PRN PO MILD PAIN Last administered on 02/17/17 17:30; Start 02/14/17 at 17:00 Acetaminophen/ Hydrocodone Bitart (Lortab 7.5/325) 2 tab PRN Q6HRS PRN PO MODERATE PAIN, SEVERE PAIN; Start 02/14/17 at 17:00 Acetaminophen (Tylenol) 650 mg PRN Q6HRS PRN PO Pain Last administered on 02/15 17:25; Start 02/15/17 at 10:45 Levothyroxine Sodium (Synthroid) 137 mcg DAILY06 PO Last administered on 06:39; Start 02/16/17 at 06:00 Pantoprazole Sodium (Protonix) 40 mg BIDAC PO Last administered on 02/17/17 07:43; Start 02/16/17 at 07:30; Stop 02/17/17 at 10:29; Status DC Digoxin (Lanoxin) 250 mcg DAILY PO Last administered on 02/17/17 07:57; Start 02/16/17 at 09:00 Insulin Aspart (NovoLOG) 10 units TIDAC SQ Last administered on 02/17/17 17: 35; Start 02/16/17 at 07:30 Methylprednisolone Sodium Succinate (SOLU-Medrol 40MG VIAL) 30 mg Q8HRS IV ; Start 02/16/17 at 14:00; Stop 02/16/17 at 14:00; Status DC Prednisone (Prednisone) 60 mg 1X ONCE PO Last administered on 02/16/17 12:45 ; Start 02/16/17 at 12:30; Stop 02/16/17 at 12:32; Status DC Furosemide (Lasix) 40 mg 1X ONCE IVP Last administered on 02/16/17 12:46; Start 02/16/17 at 12:30; Stop 02/16/17 at 12:32; Status DC Furosemide (Lasix) 20 mg 1X ONCE IVP ; Start 02/16/17 at 13:45; Stop at 13:47; Status DC Digoxin (Lanoxin) 250 mcg 1X ONCE IV Last administered on 02/16/17 17:17; Start 02/16/17 at 16:45; Stop 02/16/17 at 16:46; Status DC Pantoprazole Sodium (Protonix) 40 mg DAILYAC PO ; Start 02/18/17 at 07:30 Nystatin 15 ml [id number] Last administered on 02/17/17t 17:16; Start 02/17 at 13:00 Active Scripts Active Reported Ferrous Sulfate 325 Mg Tablet 1 Tab PO BID LAST DOSE GIVEN: DATE:01/08/17 TIME:9:00 a.m. Warfarin Sodium 5 Mg Tablet 1 Tab PO DAILY 30 Days LAST DOSE GIVEN: DATE:01/08/17 TIME:2:00 p.m Levothyroxine Sodium 137 Mcg Tablet 137 Mcg PO DAILYAC LAST DOSE GIVEN: DATE:01/08/17 TIME:7:30 a.m. Furosemide 40 Mg Tablet 40 Mg PO DAILY LAST DOSE GIVEN: DATE:01/07/17 TIME:9:00 a.m. Aspirin 81 Mg Tab.chew 1 Tab PO DAILY LAST DOSE GIVEN: DATE:01/08/17 TIME:9:00 a.m. Hydrocodone-Apap 7.5-325 (Hydrocodone Bit/Acetaminophen) 1 Each Tablet 1-2 Tab PO PRN Q6HRS PRN Took at 12:30 today may take anytime as needed for pain every 4 hours Amaryl (Glimepiride) 4 Mg Tablet 1 Tab PO BID LAST DOSE GIVEN: DATE:01/08/17 TIME:9:00 a.m. Potassium Chloride 20 Meq Tab.er.prt 1 Tab PO WEEKLY Meds not given this hospital admission. May resume home medications as approved by Physician. TIME: 8:30 a.m. NEXT DOSE DUE: DATE: 12-28-15 TIME: 8:30 a.m. Metolazone 5 Mg Tablet 5 Mg PO WEEKLY Meds not given this hospital admission. May resume home medications as approved by Physician. TIME: 8:30 a.m. NEXT DOSE DUE: DATE: 12-28-15 TIME: 8:30 a.m. Lexapro (Escitalopram Oxalate) 10 Mg Tablet 20 Mg PO DAILY LAST DOSE GIVEN: DATE:01/08/17 TIME:9:00 a.m. NEXT DOSE DUE: DATE: 12-28-15 TIME: 8:30 a.m. Cardizem Cd (Diltiazem Hcl) 240 Mg Cap.er.24h 120 Mg PO HS LAST DOSE GIVEN: DATE:01/07/17 TIME:9:00 p.m. NEXT DOSE DUE: DATE: 12-27-15 TIME: 9:00 p.m. Losartan Potassium 100 Mg Tablet 25 Mg PO DAILY LAST DOSE GIVEN: DATE:01/07/17 TIME:9:00 a.m. Crestor (Rosuvastatin Calcium) 40 Mg Tablet 40 Mg PO QHS LAST DOSE GIVEN: DATE:01/07/17 TIME:9:00 p.m. NEXT DOSE DUE: DATE: 12-27-15 TIME: 9:00 p.m. Vitals/I & O Vital Sign - Last 24 Hours 02/16/17 02/16/17 02/16/17 02/16/17 20:00 20:00 20:03 22:02 Pulse 86 B/P (MAP) 156/79 Pulse Ox 93 O2 Delivery Nasal Cannula BiPAP/CPAP O2 Flow Rate 20.0 3.0 02/16/17 02/16/17 02/16/17 02/16/17 22:04 23:00 23:04 23:13 Temp 97.1 97.1 Pulse 79 Resp 18 20 20 B/P (MAP) 160/80 (106) Pulse Ox 95 93 92 96 O2 Delivery BiPAP/CPAP Nasal Cannula BiPAP/CPAP O2 Flow Rate 30.0 3.0 02/17/17 02/17/17 02/17/17 02/17/17 01:00 03:00 03:16 05:05 Temp 97.7 97.7 Pulse 83 Resp 22 B/P (MAP) 130/53 (78) Pulse Ox 94 O2 Delivery BiPAP/CPAP Nasal Cannula BiPAP/CPAP BiPAP/CPAP O2 Flow Rate 3.0 02/17/17 02/17/17 02/17/17 02/17/17 07:00 07:16 07:45 07:57 Temp 97.5 97.5 Pulse 118 118 Resp 22 B/P (MAP) 141/76 (97) 141/76 Pulse Ox 90 90 O2 Delivery Nasal Cannula Nasal Cannula Nasal Cannula O2 Flow Rate 3.0 3.0 3.0 02/17/17 02/17/17 02/17/17 02/17/17 07:58 09:19 11:12 12:34 Temp 97.7 97.7 Pulse 69 Resp 22 B/P (MAP) 131/56 (81) Pulse Ox 90 93 O2 Delivery Nasal Cannula Nasal Cannula Nasal Cannula Nasal Cannula O2 Flow Rate 3.0 3.0 3.0 3.0 02/17/17 02/17/17 02/17/17 15:00 16:30 17:30 Temp 97.7 97.7 Pulse 87 Resp 22 B/P (MAP) 123/45 (71) Pulse Ox 91 96 O2 Delivery Room Air Nasal Cannula Nasal Cannula O2 Flow Rate 3.0 3.0 Intake and Output 02/16/17 02/16/17 02/17/17 15:00 23:00 07:00 Intake Total 660 ml 180 ml Output Total 2 ml Balance 660 ml 178 ml CRYSTAL ARCHULETA MD Feb 17, 2017 19:13
[2017-02-17] MEDS: ATORVASTATIN CALCIUM 40 MG TABLET. PO SCH (20:37)
[2017-02-17] MEDS: ALPRAZolam 0.5 MG TABLET PO PRN (20:37)
[2017-02-17 23:00] VITALS: BP 124/68
[2017-02-17] MEDS ORDERED: ONDANSETRON PF 4 MG/2 ML VIAL. IV PRN (23:30)
[2017-02-18] MEDS ORDERED: methylPREDNISolone SOD SUCC PF 40 MG/ML VIAL. IV ONE (01:00)
[2017-02-18 02:44] VITALS: BP 124/62
[2017-02-18] MEDS: IPRATRPIUM/ALBUTEROL 0.5/2.5MG 3 ML NEBU. NEB SCH ×3 (03:02→10:56)
[2017-02-18 05:34] LABS: HEMATOCRIT 27.9 % (36.0-47.0); HEMOGLOBIN 8.5 g/dL (12.0-15.5); RED BLOOD COUNT 3.02 x10^6/uL (3.50-5.40); RED CELL DISTRIBUTION WIDTH 15.5 % (11.5-14.5)
[2017-02-18 05:50] LABS: CALCIUM 8.3 mg/dL (8.5-10.1); CREATININE 0.7 mg/dL (0.6-1.0); GFR 80.9; POTASSIUM 5.1 mmol/L (3.5-5.1)
[2017-02-18] MEDS: HYDROcodone/APAP 7.5/325MG 1 TAB TABLET PO PRN (05:53)
[2017-02-18] MEDS: LEVOTHYROXINE 137 MCG TABLET PO SCH (05:53)
[2017-02-18 05:56] LABS: MAGNESIUM 2.1 mg/dL (1.8-2.4); PHOSPHORUS 3.7 mg/dL (2.6-4.7)
[2017-02-18 07:00] VITALS: BP 121/67
[2017-02-18] MEDS ORDERED: PANTOPRAZOLE 40 MG TABLET.DR. PO SCH (07:30)
[2017-02-18] MEDS: metFORMIN 500 MG TABLET PO SCH (08:52)
[2017-02-18] MEDS: NYSTATIN 100,000 UNITS/ML 5 ML ORAL.SUSP. SWSW SCH ×2 (08:52→13:00)
[2017-02-18] MEDS: CITALOPRAM 20 MG TABLET. PO SCH (08:52)
[2017-02-18] MEDS: GLIMEPIRIDE 2 MG TABLET. PO SCH (08:52)
[2017-02-18] MEDS: PHENOL ORAL SPRAY 177ML BOTTLE. PO PRN (08:52)
[2017-02-18] MEDS: DIGOXIN 250 MCG TABLET. PO SCH (08:53)
[2017-02-18] MEDS: FERROUS SULFATE ORAL 300 MG/5 ML SOLUTION. PO SCH (08:53)
[2017-02-18] MEDS: INSULIN ASPART 300 UNITS/3 ML INSULN.PEN SQ SCH ×4 (09:06→12:03)
--- NOTE | 2017-02-18 09:36 | PDOC ---
PULMONARY PROGRESS NOTES Subjective feels better still very weak Vitals Vital Signs Date Time Temp Pulse Resp B/P (MAP) Pulse Ox O2 Delivery O2 Flow Rate FiO2 02/18/17 08:53 85 121/67 02/18/17 08:10 Nasal Cannula 2.5 02/18/17 07:24 85 02/18/17 07:00 97.8 17 97.8 ROS: No Nausea, No Chest Pain, No Abdominal Pain, No Increase Cough General: Alert Lungs: Clear, Wheezing (resolved) Cardiovascular: S1, S2 Abdomen: Soft, Other (obese) Neuro Exam: Alert Extremities: Other (2+edema) Labs Laboratory Tests Test 02/16/17 10:56 02/16/17 16:47 02/16/17 20:26 02/17/17 06:15 Glucose (Fingerstick) 276 mg/dL (70-99) 144 mg/dL (70-99) 197 mg/dL (70-99) White Blood Count 12.3 x10^3/uL (4.0-11.0) Red Blood Count 2.86 x10^6/uL (3.50-5.40) Hemoglobin 8.2 g/dL (12.0-15.5) Hematocrit 26.0 % (36.0-47.0) Mean Corpuscular Volume 91 fL (79-100) Mean Corpuscular Hemoglobin 29 pg (25-35) Mean Corpuscular Hemoglobin Concent 32 g/dL (31-37) Red Cell Distribution Width 15.6 % (11.5-14.5) Platelet Count 216 x10^3/uL (140-400) Sodium Level 148 mmol/L (136-145) Potassium Level 4.4 mmol/L (3.5-5.1) Chloride Level 107 mmol/L (98-107) Carbon Dioxide Level 38 mmol/L (21-32) Anion Gap 3 (6-14) Blood Urea Nitrogen 31 mg/dL (7-20) Creatinine 0.7 mg/dL (0.6-1.0) Estimated GFR (Cockcroft-Gault) 80.9 Glucose Level 221 mg/dL (70-99) Calcium Level 8.2 mg/dL (8.5-10.1) Test 02/17/17 07:31 02/17/17 10:47 02/17/17 16:29 02/17/17 20:22 Glucose (Fingerstick) 225 mg/dL (70-99) 195 mg/dL (70-99) 169 mg/dL (70-99) 113 mg/dL (70-99) Test 02/18/17 04:57 02/18/17 07:52 White Blood Count 13.0 x10^3/uL (4.0-11.0) Red Blood Count 3.02 x10^6/uL (3.50-5.40) Hemoglobin 8.5 g/dL (12.0-15.5) Hematocrit 27.9 % (36.0-47.0) Mean Corpuscular Volume 92 fL (79-100) Mean Corpuscular Hemoglobin 28 pg (25-35) Mean Corpuscular Hemoglobin Concent 31 g/dL (31-37) Red Cell Distribution Width 15.5 % (11.5-14.5) Platelet Count 198 x10^3/uL (140-400) Sodium Level 145 mmol/L (136-145) Potassium Level 5.1 mmol/L (3.5-5.1) Chloride Level 106 mmol/L (98-107) Carbon Dioxide Level 37 mmol/L (21-32) Anion Gap 2 (6-14) Blood Urea Nitrogen 28 mg/dL (7-20) Creatinine 0.7 mg/dL (0.6-1.0) Estimated GFR (Cockcroft-Gault) 80.9 Glucose Level 208 mg/dL (70-99) Calcium Level 8.3 mg/dL (8.5-10.1) Phosphorus Level 3.7 mg/dL (2.6-4.7) Magnesium Level 2.1 mg/dL (1.8-2.4) Triglycerides Level 159 mg/dL (0-150) Glucose (Fingerstick) 257 mg/dL (70-99) Laboratory Tests Test 02/17/17 10:47 02/17/17 16:29 02/17/17 20:22 02/18/17 04:57 Glucose (Fingerstick) 195 mg/dL (70-99) 169 mg/dL (70-99) 113 mg/dL (70-99) White Blood Count 13.0 x10^3/uL (4.0-11.0) Red Blood Count 3.02 x10^6/uL (3.50-5.40) Hemoglobin 8.5 g/dL (12.0-15.5) Hematocrit 27.9 % (36.0-47.0) Mean Corpuscular Volume 92 fL (79-100) Mean Corpuscular Hemoglobin 28 pg (25-35) Mean Corpuscular Hemoglobin Concent 31 g/dL (31-37) Red Cell Distribution Width 15.5 % (11.5-14.5) Platelet Count 198 x10^3/uL (140-400) Sodium Level 145 mmol/L (136-145) Potassium Level 5.1 mmol/L (3.5-5.1) Chloride Level 106 mmol/L (98-107) Carbon Dioxide Level 37 mmol/L (21-32) Anion Gap 2 (6-14) Blood Urea Nitrogen 28 mg/dL (7-20) Creatinine 0.7 mg/dL (0.6-1.0) Estimated GFR (Cockcroft-Gault) 80.9 Glucose Level 208 mg/dL (70-99) Calcium Level 8.3 mg/dL (8.5-10.1) Phosphorus Level 3.7 mg/dL (2.6-4.7) Magnesium Level 2.1 mg/dL (1.8-2.4) Triglycerides Level 159 mg/dL (0-150) Test 02/18/17 07:52 Glucose (Fingerstick) 257 mg/dL (70-99) Medications Active Scripts Medications Dose Route/Sig Max Daily Dose Days Date Category Dose Instructions Ferrous Sulfate 325 Mg Tablet 1 Tab PO BID 01/08/17 Reported LAST DOSE GIVEN: DATE:01/08/17 TIME:9:00 a.m. Warfarin Sodium 5 Mg Tablet 1 Tab PO DAILY 30 01/08/17 Reported LAST DOSE GIVEN: DATE:01/08/17 TIME:2:00 p.m Levothyroxine Sodium 137 Mcg Tablet 137 Mcg PO DAILYAC 01/04/17 Reported LAST DOSE GIVEN: DATE:01/08/17 TIME:7:30 a.m. Furosemide 40 Mg Tablet 40 Mg PO DAILY 01/04/17 Reported LAST DOSE GIVEN: DATE:01/07/17 TIME:9:00 a.m. Aspirin 81 Mg Tab.chew 1 Tab PO DAILY 11/16/16 Reported LAST DOSE GIVEN: DATE:01/08/17 TIME:9:00 a.m. Hydrocodone-Apap 7.5-325 (Hydrocodone Bit/Acetaminophen) 1 Each Tablet 1-2 Tab PO PRN Q6HRS PRN 12/26/15 Reported Took at 12:30 today may take anytime as needed for pain every 4 hours Amaryl (Glimepiride) 4 Mg Tablet 1 Tab PO BID 12/16/15 Reported LAST DOSE GIVEN: DATE:01/08/17 TIME:9:00 a.m. Potassium Chloride 20 Meq Tab.er.prt 1 Tab PO WEEKLY 04/17/15 Reported Meds not given this hospital admission. May resume home medications as approved by Physician. TIME: 8:30 a.m. NEXT DOSE DUE: DATE: 12-28-15 TIME: 8:30 a.m. Metolazone 5 Mg Tablet 5 Mg PO WEEKLY 04/16/15 Reported Meds not given this hospital admission. May resume home medications as approved by Physician. TIME: 8:30 a.m. NEXT DOSE DUE: DATE: 12-28-15 TIME: 8:30 a.m. Lexapro (Escitalopram Oxalate) 10 Mg Tablet 20 Mg PO DAILY 05/01/13 Reported LAST DOSE GIVEN: DATE:01/08/17 TIME:9:00 a.m. NEXT DOSE DUE: DATE: 12-28-15 TIME: 8:30 a.m. Cardizem Cd (Diltiazem Hcl) 240 Mg Cap.er.24h 120 Mg PO HS 05/01/13 Reported LAST DOSE GIVEN: DATE:01/07/17 TIME:9:00 p.m. NEXT DOSE DUE: DATE: 12-27-15 TIME: 9:00 p.m. Losartan Potassium 100 Mg Tablet 25 Mg PO DAILY 05/01/13 Reported LAST DOSE GIVEN: DATE:01/07/17 TIME:9:00 a.m. Crestor (Rosuvastatin Calcium) 40 Mg Tablet 40 Mg PO QHS 05/01/13 Reported LAST DOSE GIVEN: DATE:01/07/17 TIME:9:00 p.m. NEXT DOSE DUE: DATE: 12-27-15 TIME: 9:00 p.m. Impression . 1. Acute on chronic hypercapnic respiratory failure multifactorial 2. s/p Sepsis, per ID 3. JAYLIN 4. COPD with exacerbation 5. Moderate to severe protein-calorie malnutrition. 6. Abnormal chest x-ray 02/13 possible mild CHF 7. Acute Blood loss anemia 8. Coagulopathy 9. Morbid Obesity 10. Dysphagia Plan . FEELS BETTER POST LASIX CXR 02/16 WITH MILD CHF BIPAP PRN NEBS STEROIDS OFF LASIX PRN FOLLOW DYSPHAGIA DIET STILL VERY WEAK, CANNOT BEAR WT. PT FOLLOWING D/W RN SKILL PER PCP ALYSSA SLADE MD Feb 18, 2017 09:35
--- NOTE | 2017-02-18 09:47 | PDOC ---
PROGRESS NOTES Subjective Subjective Problems overnight: Left knee has no pain or instability. She indicates that both legs are weak and she has difficulty due to weakness with thumb holding her up when they tried to get her up and mobilize Objective Vital Signs Vital Signs Date Time Temp Pulse Resp B/P (MAP) Pulse Ox O2 Delivery O2 Flow Rate FiO2 02/18/17 08:53 85 121/67 02/18/17 08:10 Nasal Cannula 2.5 02/18/17 07:24 85 02/18/17 07:00 97.8 17 97.8 Physical Exam Left knee has good range of motion weak quadriceps but good patellofemoral tracking without instability or apprehension. She has some quadriceps weakness on the contralateral right knee as well with no gross instability Labs Laboratory Tests Test 02/16/17 10:56 02/16/17 16:47 02/16/17 20:26 02/17/17 06:15 Glucose (Fingerstick) 276 mg/dL (70-99) 144 mg/dL (70-99) 197 mg/dL (70-99) White Blood Count 12.3 x10^3/uL (4.0-11.0) Red Blood Count 2.86 x10^6/uL (3.50-5.40) Hemoglobin 8.2 g/dL (12.0-15.5) Hematocrit 26.0 % (36.0-47.0) Mean Corpuscular Volume 91 fL (79-100) Mean Corpuscular Hemoglobin 29 pg (25-35) Mean Corpuscular Hemoglobin Concent 32 g/dL (31-37) Red Cell Distribution Width 15.6 % (11.5-14.5) Platelet Count 216 x10^3/uL (140-400) Sodium Level 148 mmol/L (136-145) Potassium Level 4.4 mmol/L (3.5-5.1) Chloride Level 107 mmol/L (98-107) Carbon Dioxide Level 38 mmol/L (21-32) Anion Gap 3 (6-14) Blood Urea Nitrogen 31 mg/dL (7-20) Creatinine 0.7 mg/dL (0.6-1.0) Estimated GFR (Cockcroft-Gault) 80.9 Glucose Level 221 mg/dL (70-99) Calcium Level 8.2 mg/dL (8.5-10.1) Test 02/17/17 07:31 02/17/17 10:47 02/17/17 16:29 02/17/17 20:22 Glucose (Fingerstick) 225 mg/dL (70-99) 195 mg/dL (70-99) 169 mg/dL (70-99) 113 mg/dL (70-99) Test 02/18/17 04:57 02/18/17 07:52 White Blood Count 13.0 x10^3/uL (4.0-11.0) Red Blood Count 3.02 x10^6/uL (3.50-5.40) Hemoglobin 8.5 g/dL (12.0-15.5) Hematocrit 27.9 % (36.0-47.0) Mean Corpuscular Volume 92 fL (79-100) Mean Corpuscular Hemoglobin 28 pg (25-35) Mean Corpuscular Hemoglobin Concent 31 g/dL (31-37) Red Cell Distribution Width 15.5 % (11.5-14.5) Platelet Count 198 x10^3/uL (140-400) Sodium Level 145 mmol/L (136-145) Potassium Level 5.1 mmol/L (3.5-5.1) Chloride Level 106 mmol/L (98-107) Carbon Dioxide Level 37 mmol/L (21-32) Anion Gap 2 (6-14) Blood Urea Nitrogen 28 mg/dL (7-20) Creatinine 0.7 mg/dL (0.6-1.0) Estimated GFR (Cockcroft-Gault) 80.9 Glucose Level 208 mg/dL (70-99) Calcium Level 8.3 mg/dL (8.5-10.1) Phosphorus Level 3.7 mg/dL (2.6-4.7) Magnesium Level 2.1 mg/dL (1.8-2.4) Triglycerides Level 159 mg/dL (0-150) Glucose (Fingerstick) 257 mg/dL (70-99) Laboratory Tests Test 02/17/17 10:47 02/17/17 16:29 02/17/17 20:22 02/18/17 04:57 Glucose (Fingerstick) 195 mg/dL (70-99) 169 mg/dL (70-99) 113 mg/dL (70-99) White Blood Count 13.0 x10^3/uL (4.0-11.0) Red Blood Count 3.02 x10^6/uL (3.50-5.40) Hemoglobin 8.5 g/dL (12.0-15.5) Hematocrit 27.9 % (36.0-47.0) Mean Corpuscular Volume 92 fL (79-100) Mean Corpuscular Hemoglobin 28 pg (25-35) Mean Corpuscular Hemoglobin Concent 31 g/dL (31-37) Red Cell Distribution Width 15.5 % (11.5-14.5) Platelet Count 198 x10^3/uL (140-400) Sodium Level 145 mmol/L (136-145) Potassium Level 5.1 mmol/L (3.5-5.1) Chloride Level 106 mmol/L (98-107) Carbon Dioxide Level 37 mmol/L (21-32) Anion Gap 2 (6-14) Blood Urea Nitrogen 28 mg/dL (7-20) Creatinine 0.7 mg/dL (0.6-1.0) Estimated GFR (Cockcroft-Gault) 80.9 Glucose Level 208 mg/dL (70-99) Calcium Level 8.3 mg/dL (8.5-10.1) Phosphorus Level 3.7 mg/dL (2.6-4.7) Magnesium Level 2.1 mg/dL (1.8-2.4) Triglycerides Level 159 mg/dL (0-150) Test 02/18/17 07:52 Glucose (Fingerstick) 257 mg/dL (70-99) Assessment Assessment Patient is status post a remote patellofemoral stabilization procedure in her left total knee arthroplasty. Problems: Plan Plan of Care Apparently since she is more stabilized pulmonary [place] plans call for [facility] From an orthopedic standpoint her knee overall looks good she certainly does have weakness in both legs and can proceed really without restrictions other than symptomatically limited. She can do some bed mobility for joint mobilization leg lifts and strengthening mobilization as tolerated. Again no orthopedic limitations other than her strength and stability that she doesn't feel her legs could carry her she would certainly need assistance. The area of the knee appears to be well-healed up there is no concern with infection instability or other complications Follow-up with me could be in about a month after some additional strengthening I be happy to see her earlier if there is any other concerns or issues in the interim ASHWINI POWELL MD Feb 18, 2017 09:47
[2017-02-18 11:11] VITALS: BP 115/57
--- NOTE | 2017-02-18 12:35 | PDOC ---
Subjective: Subjective: Concerned about resp issues. Ongoing sore throat - "just so dry." Doesn't like to drink a lot because then she has to get up to urinate. No bleeding, doesn't like diet. Objective: Objective: Note addition of Nystatin. Refused iron. Vital Signs: Vital Signs Date Time Temp Pulse Resp B/P (MAP) Pulse Ox O2 Delivery O2 Flow Rate FiO2 02/18/17 11:11 99.4 80 17 115/57 (76) 90 Nasal Cannula 5.0 99.4 Labs: Laboratory Tests Test 02/17/17 16:29 02/17/17 20:22 02/18/17 04:57 02/18/17 07:52 Glucose (Fingerstick) 169 mg/dL 113 mg/dL 257 mg/dL White Blood Count 13.0 x10^3/uL Red Blood Count 3.02 x10^6/uL Hemoglobin 8.5 g/dL Hematocrit 27.9 % Mean Corpuscular Volume 92 fL Mean Corpuscular Hemoglobin 28 pg Mean Corpuscular Hemoglobin Concent 31 g/dL Red Cell Distribution Width 15.5 % Platelet Count 198 x10^3/uL Sodium Level 145 mmol/L Potassium Level 5.1 mmol/L Chloride Level 106 mmol/L Carbon Dioxide Level 37 mmol/L Anion Gap 2 Blood Urea Nitrogen 28 mg/dL Creatinine 0.7 mg/dL Estimated GFR (Cockcroft-Gault) 80.9 Glucose Level 208 mg/dL Calcium Level 8.3 mg/dL Phosphorus Level 3.7 mg/dL Magnesium Level 2.1 mg/dL Triglycerides Level 159 mg/dL Test 02/18/17 11:23 Glucose (Fingerstick) 240 mg/dL PE: GEN: NAD LUNGS: nasal cannula HEART: RRR ABD: S/ND/NT NEURO/PSYCH: A & O 3 A/P: Anemia - stable Sore throat Resp failure, CHF -- Continue same per GI. ARBEN PEREZ Feb 18, 2017 12:35
[2017-02-18 15:09] VITALS: BP 125/57
== END 2017-02-18 18:28 | DRG 871 ==
LOC: ER 08:30 → 1 WEST ICU 11:23 → 5 NORTH 02-14 15:07
PROVIDERS: ADMIT Family Medicine; ATTEND Family Medicine
PROC: 5A09357 Assistance with Respiratory Ventilation, Less than 24 Consecutive Hours, Continuous Positive Airway Pressure (ICD-10-PCS; 2017-02-05)
PROC: 5A09357 Assistance with Respiratory Ventilation, Less than 24 Consecutive Hours, Continuous Positive Airway Pressure (ICD-10-PCS; 2017-02-06)
PROC: 5A09357 Assistance with Respiratory Ventilation, Less than 24 Consecutive Hours, Continuous Positive Airway Pressure (ICD-10-PCS; 2017-02-07)
PROC: 02HV33Z Insertion of Infusion Device into Superior Vena Cava, Percutaneous Approach (ICD-10-PCS; 2017-02-07)
PROC: 30233L1 Transfusion of Nonautologous Fresh Plasma into Peripheral Vein, Percutaneous Approach (ICD-10-PCS; principal; 2017-02-08)
PROC: 30233N1 Transfusion of Nonautologous Red Blood Cells into Peripheral Vein, Percutaneous Approach (ICD-10-PCS; 2017-02-08)
PROC: 30233K1 Transfusion of Nonautologous Frozen Plasma into Peripheral Vein, Percutaneous Approach (ICD-10-PCS; 2017-02-08)
PROC: 5A09357 Assistance with Respiratory Ventilation, Less than 24 Consecutive Hours, Continuous Positive Airway Pressure (ICD-10-PCS; 2017-02-08)
PROC: 5A09357 Assistance with Respiratory Ventilation, Less than 24 Consecutive Hours, Continuous Positive Airway Pressure (ICD-10-PCS; 2017-02-13)
PROC: 5A09357 Assistance with Respiratory Ventilation, Less than 24 Consecutive Hours, Continuous Positive Airway Pressure (ICD-10-PCS; 2017-02-14)
PROC: 5A09357 Assistance with Respiratory Ventilation, Less than 24 Consecutive Hours, Continuous Positive Airway Pressure (ICD-10-PCS; 2017-02-15)
PROC: 5A09357 Assistance with Respiratory Ventilation, Less than 24 Consecutive Hours, Continuous Positive Airway Pressure (ICD-10-PCS; 2017-02-16)
PROC: 5A09357 Assistance with Respiratory Ventilation, Less than 24 Consecutive Hours, Continuous Positive Airway Pressure (ICD-10-PCS; 2017-02-17)
PROC: 5A09357 Assistance with Respiratory Ventilation, Less than 24 Consecutive Hours, Continuous Positive Airway Pressure (ICD-10-PCS; 2017-02-18)
DX: A41.9 Sepsis, unspecified organism (principal); J18.9 Pneumonia, unspecified organism; J96.22 Acute and chronic respiratory failure with hypercapnia; E43 Unspecified severe protein-calorie malnutrition; G93.40 Encephalopathy, unspecified; I50.33 Acute on chronic diastolic (congestive) heart failure; D68.9 Coagulation defect, unspecified; I11.0 Hypertensive heart disease with heart failure; I27.29 Other secondary pulmonary hypertension; K22.2 Esophageal obstruction; J44.0 Chronic obstructive pulmonary disease with (acute) lower respiratory infection; J44.1 Chronic obstructive pulmonary disease with (acute) exacerbation; J98.11 Atelectasis; L03.116 Cellulitis of left lower limb; N39.0 Urinary tract infection, site not specified; E66.2 Morbid (severe) obesity with alveolar hypoventilation; Z68.41 Body mass index [BMI] 40.0-44.9, adult; I48.2 Chronic atrial fibrillation; D50.0 Iron deficiency anemia secondary to blood loss (chronic); E11.9 Type 2 diabetes mellitus without complications; E86.0 Dehydration; B37.9 Candidiasis, unspecified; E03.9 Hypothyroidism, unspecified; E78.00 Pure hypercholesterolemia, unspecified; E78.5 Hyperlipidemia, unspecified; F32.9 Major depressive disorder, single episode, unspecified; F41.1 Generalized anxiety disorder; G47.33 Obstructive sleep apnea (adult) (pediatric); I25.10 Atherosclerotic heart disease of native coronary artery without angina pectoris; I27.81 Cor pulmonale (chronic); I35.0 Nonrheumatic aortic (valve) stenosis; I70.1 Atherosclerosis of renal artery; I72.3 Aneurysm of iliac artery; K57.90 Diverticulosis of intestine, part unspecified, without perforation or abscess without bleeding; K64.9 Unspecified hemorrhoids; M06.9 Rheumatoid arthritis, unspecified; T45.515A Adverse effect of anticoagulants, initial encounter; Y95 Nosocomial condition; Z79.01 Long term (current) use of anticoagulants; Z82.49 Family history of ischemic heart disease and other diseases of the circulatory system; Z82.5 Family history of asthma and other chronic lower respiratory diseases; Z83.3 Family history of diabetes mellitus; Z86.010 Personal history of colon polyps; Z87.891 Personal history of nicotine dependence; Z90.49 Acquired absence of other specified parts of digestive tract; Z90.710 Acquired absence of both cervix and uterus; Z91.041 Radiographic dye allergy status; Z95.1 Presence of aortocoronary bypass graft; Z96.653 Presence of artificial knee joint, bilateral; Z98.84 Bariatric surgery status; Z88.0 Allergy status to penicillin; Z88.8 Allergy status to other drugs, medicaments and biological substances
CPT/HCPCS: 36415; 36569; 36600; 71010; 74000; 74174; 78278; 80048; 80053; 80202; 81001; 82553; 82805; 82962; 83036; 83605; 83735; 83880; 84100; 84443; 84478; 84484; 85007; 85014; 85018; 85025; 85027; 85610; 86850; 86900; 86901; 86920; 86927; 87040; 87086; 87205; 87324; 87641; 87804; 93005; 94070; 94640; 94660; 94760; 96361; 96365; 96366; 96374; 96375; A9560; C9113; J0610; J1160; J1200; J1650; J1720; J1815; J1940; J1956; J2060; J2185; J2920; J2930; J2997; J3010; J3370; J3430; J3475; J7030; J7512; J7620; P9016; P9017; P9045; P9612; Q9967; S0028; 92526; 92610; 97110; 97530; 97535; 99291-25